=== PATIENT | female | born 1955 | race Caucasian/White ===

== ENCOUNTER 2016-12-09 09:47 | Inpatient (IN) | payer MEDICARE, MEDICAID ==
[~2016-12-09] VITALS: Ht 162.6 cm; Wt 95.3 kg
[~2016-12-09 09:47] MED LIST: ALPR0.25 PO; AMLO2.5T PO; ASPI-482 PO; ATOR20TA58 PO; BREO ELLIPTA 11 EACH IH; BUPR300T4 PO; CEFP200T PO; CITA40TA5 PO; CLIN-44 PO; ESOM40CA PO; FENO145T2 PO; FENO48TA16 PO; FLUT1DIS5 IH; GABA-586 PO; HYDR-2666 PO; HYDR-2762 PO; HYDR-971 PO; INSU100V8 SQ; IPRA3AMP23 IH; ISOS30TA4 PO; LEVO75TA5 PO; LEVO88TA4 PO; METF10002 PO; METO25TA9 PO; OMEP20CA9 PO; PRAS10TA4 PO; PRED-220 PO; PRED50TA PO; PROAIR HFA8.5 GM IH; SIMV40TA3 PO; SUCR1TAB29 PO; TIOT18CA IH; VALA500T5 PO; VALS160T3 PO; VALS1TAB3 PO; VALS1TAB6 PO; VENTOLIN HFA18 GM INH
[2016-12-09] MEDS ORDERED: methylPREDNISolone SOD SUCC PF 125 MG/2 ML VIAL. ONE (09:53)
[2016-12-09] MEDS ORDERED: methylPREDNISolone SOD SUCC PF 125 MG/2 ML VIAL. IV ONE (10:00)
[2016-12-09] MEDS ORDERED: IPRATRPIUM/ALBUTEROL 0.5/2.5MG 3 ML NEBU. NEB ONE (10:00)
--- NOTE | 2016-12-09 10:09 | PHYS DOC ---
Past Medical History Past Medical History: Anxiety, COPD, Diabetes-Type II, High Cholesterol, Hypertension, Hyperthyroid, AL Additional Past Medical Histor: EMPHYSEMA Past Surgical History: Other Additional Past Surgical Histo: left knee replacementx2, spinal fusion, right knee arthroplasty, CTR Alcohol Use: None Drug Use: None Adult General Chief Complaint Chief Complaint: SHORTNESS OF BREATH [facility] HPI Patient is a 61 year old female presents to emergency department stating that she's been short of air for the last week. She is followed up with her primary care physician was provided with some respiratory treatments. He was also supposed above assisted with getting a oxygen compressor at home. Patient states that this has not occurred at this time yet. Patient states that over the night she has increased difficulty with breathing shortness of air with wheezing. She has a history of congestive heart failure, COPD, HTN and diabetes. Patient denies fever, chills, nausea or vomiting. Cough has bee nonproductive. Review of Systems Review of Systems Constitutional: Denies fever or chills [] Eyes: Denies change in visual acuity, redness, or eye pain [] HENT: Denies nasal congestion or sore throat [] Respiratory:cough with shortness of air Cardiovascular: No additional information not addressed in HPI [] GI: Denies abdominal pain, nausea, vomiting, bloody stools or diarrhea [] : Denies dysuria or hematuria [] Musculoskeletal: Denies back pain or joint pain [] Integument: Denies rash or skin lesions [] Neurologic: Denies headache, focal weakness or sensory changes [] Current Medications Current Medications Current Medications Medications (Trade) Dose Ordered Sig/Juan Start Time Stop Time Status Last Admin Dose Admin Albuterol/ Ipratropium (Duoneb) 3 ml 1X ONCE 12/09/16 10:00 12/09/16 10:01 DC 12/09/16 10:05 3 ML Methylprednisolone Sodium Succinate (Solu-Medrol 125mg Vial) 125 mg STK-MED ONCE 12/09/16 09:53 12/09/16 09:54 DC Allergies Allergies Allergies Coded Allergies Type Severity Reaction Last Updated Verified levofloxacin Allergy Intermediate Hives 09/21/15 Yes Physical Exam Physical Exam Constitutional: Well developed, well nourished, no acute distress, non-toxic appearance. [] HENT: Normocephalic, atraumatic, bilateral external ears normal, oropharynx moist, no oral exudates, nose normal. [] Eyes: PERRLA, EOMI, conjunctiva normal, no discharge. [] Neck: Normal range of motion, no tenderness, supple, no stridor. [] Cardiovascular:Heart rate regular rhythm, no murmur [] Lungs & Thorax: Bilateral breath sounds with wheezes noted throughout Skin: Warm, dry, no erythema. Patient with scabbed over areas to bilateral lower legs and feet. Back: No tenderness Extremities: No tenderness, no cyanosis, no clubbing, ROM intact, no edema. [] Neurologic: Alert and oriented X 3, normal motor function, normal sensory function, no focal deficits noted. [] Psychologic: Affect normal, judgement normal, mood normal. [] Current Patient Data Vital Signs Vital Signs Date Time Temp Pulse Resp B/P Pulse Ox O2 Delivery O2 Flow Rate FiO2 12/09/16 10:09 96 Nasal Cannula 4.0 12/09/16 09:55 98.1 110 32 121/80 98.1 Lab Values Laboratory Tests Test 12/09/16 09:55 White Blood Count 7.9x10^3/uL (4.0-11.0) Red Blood Count 4.51x10^6/uL (3.50-5.40) Hemoglobin 13.8g/dL (12.0-15.5) Hematocrit 41.6% (36.0-47.0) Mean Corpuscular Volume 92fL (79-100) Mean Corpuscular Hemoglobin 31pg (25-35) Mean Corpuscular Hemoglobin Concent 33g/dL (31-37) Red Cell Distribution Width 13.6% (11.5-14.5) Platelet Count 319x10^3/uL (140-400) Neutrophils (%) (Auto) 74% (31-73) H Lymphocytes (%) (Auto) 16% (24-48) L Monocytes (%) (Auto) 8% (0-9) Eosinophils (%) (Auto) 1% (0-3) Basophils (%) (Auto) 1% (0-3) Neutrophils # (Auto) 5.8x10^3uL (1.8-7.7) Lymphocytes # (Auto) 1.3x10^3/uL (1.0-4.8) Monocytes # (Auto) 0.6x10^3/uL (0.0-1.1) Eosinophils # (Auto) 0.1x10^3/uL (0.0-0.7) Basophils # (Auto) 0.1x10^3/uL (0.0-0.2) Sodium Level 137mmol/L (136-145) Potassium Level 3.9mmol/L (3.5-5.1) Chloride Level 97mmol/L (98-107) L Carbon Dioxide Level 32mmol/L (21-32) Anion Gap 8 (6-14) Blood Urea Nitrogen 10mg/dL (7-20) Creatinine 1.1mg/dL (0.6-1.0) H Estimated GFR (Cockcroft-Gault) 50.3 BUN/Creatinine Ratio 9 (6-20) Glucose Level 179mg/dL (70-99) H Calcium Level 9.1mg/dL (8.5-10.1) Total Bilirubin 0.5mg/dL (0.2-1.0) Aspartate Amino Transferase (AST) 28U/L (15-37) Alanine Aminotransferase (ALT) 27U/L (14-59) Alkaline Phosphatase 74U/L (46-116) Troponin I Quantitative < 0.017ng/mL (0.000-0.055) XG-Kmu-E-Type Natriuretic Peptide 1306pg/mL (0-124) H Total Protein 8.4g/dL (6.4-8.2) H Albumin 3.8g/dL (3.4-5.0) Albumin/Globulin Ratio 0.8 (1.0-1.7) L Laboratory Tests 12/09/16 09:55 Laboratory Tests 12/09/16 09:55 EKG EKG Ekg completed at 0955 with HR 115, ST noted with axis deviation. No STEMI per Dr Little[] Radiology/Procedures Radiology/Procedures [facility] [address] [place] [address] IMAGING REPORT Signed PATIENT: ESVIN SCHROEDER ACCOUNT: [id number] : 1955 LOCATION: ER AGE: 61 SEX: F EXAM STATUS: PRE ER ORD. PHYSICIAN: AB ORTIZ NP REASON: Shortness of air, wheezing PROCEDURE: PORTABLE CHEST 1V Exam: AP portable chest. History: Shortness of air, wheezing, COPD. Comparison: 09/19/2016. Findings: The heart and mediastinal structures are within normal limits for size. Lungs are without infiltrate. No pneumothorax or pleural effusion is appreciated. Mid thoracic vertebral level again demonstrates cement. Impression: 1. No acute cardiopulmonary process. DICTATED and SIGNED BY: SUSAN HUNG MD DATE: 12/09/16 1019 CC: AB ORTIZ INSOLE TAPER; DMITRI COLMENARES MD ~ [] Course & Med Decision Making Course & Med Decision Making Pertinent Labs and Imaging studies reviewed. (See chart for details) Patient was provided with respiratory treatment in which patient states this is helped she still continues to have some wheezes throughout. She was provided with 125 mg of Solu-Medrol IV. Patient will be admitted under Dr. Waldrop. Orders have been received. Patient is a full code. [] Dragon Disclaimer Dragon Disclaimer This electronic medical record was generated, in whole or in part, using a voice recognition dictation system. Departure Departure Impression: Primary Impression: COPD exacerbation Additional Impressions: Dyspnea CHF (congestive heart failure) Disposition: ADMITTED INPATIENT Admitting Physician: Teo Waldrop Referrals: DMITRI COLMENARES MD (PCP) Problem Qualifiers AB ORTIZ NP Dec 09, 2016 10:09
--- NOTE | 2016-12-09 10:22 | RAD ---
Exam: AP portable chest. History: Shortness of air, wheezing, COPD. Comparison: 09/19/2016. Findings: The heart and mediastinal structures are within normal limits for size. Lungs are without infiltrate. No pneumothorax or pleural effusion is appreciated. Mid thoracic vertebral level again demonstrates cement. Impression: 1. No acute cardiopulmonary process.
[2016-12-09 10:23] LABS: BASO # 0.1 x10^3/uL (0.0-0.2); BASO % 1 % (0-3); EOS % 1 % (0-3); HEMATOCRIT 41.6 % (36.0-47.0); HEMOGLOBIN 13.8 g/dL (12.0-15.5); LYMPH # 1.3 x10^3/uL (1.0-4.8); LYMPH % 16 % (24-48); MEAN CORPUSCULAR HEMOGLOBIN 31 pg (25-35); MEAN CORPUSCULAR HGB CONC 33 g/dL (31-37); MEAN CORPUSCULAR VOLUME 92 fL (79-100); MONO % 8 % (0-9); NEUT % 74 % (31-73); PLATELET COUNT 319 x10^3/uL (140-400); RED BLOOD COUNT 4.51 x10^6/uL (3.50-5.40); RED CELL DISTRIBUTION WIDTH 13.6 % (11.5-14.5); WHITE BLOOD COUNT 7.9 x10^3/uL (4.0-11.0)
[2016-12-09 10:33] LABS: CALCIUM 9.1 mg/dL (8.5-10.1); CREATININE 1.1 mg/dL (0.6-1.0); GFR 50.3; POTASSIUM 3.9 mmol/L (3.5-5.1)
[2016-12-09 10:38] LABS: ALBUMIN 3.8 g/dL (3.4-5.0); ALBUMIN/GLOBULIN RATIO 0.8 (1.0-1.7); TOTAL BILIRUBIN 0.5 mg/dL (0.2-1.0); TOTAL PROTEIN 8.4 g/dL (6.4-8.2)
[2016-12-09] MEDS ORDERED: ALBUTEROL SULFATE 2.5 MG/3 ML NEBU. NEB PRN (11:00)
--- NOTE | 2016-12-09 11:41 | EKG ---
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
--- NOTE | 2016-12-09 11:54 | ACF ---
Admission Forms Criteria COPD Clinical Indications for Admission to Inpatient Care (Place 'X' for any and all applicable criteria): Admission is indicated for ANY ONE of the following (1)(2)(3): [X]I. Acute exacerbation by high-risk comorbidity (e.g., pneumonia, dysrhythmia, heart failure, pleural effusion, pneumothorax) or severe underlying COPD (e.g., steroid dependent) [ ]II. Inpatient admission required rather than observation care (see Chronic Obstructive Pulmonary Disease: Observation Care) because of ANY ONE of the following: [ ]a) New or pre-existing signs or symptoms of COPD (eg, dyspnea or Tachypnea at rest or with minimal activity) that persist despite outpatient and observation care treatment [ ]b) New-onset hypoxemia (room air SaO2 less than 90%, PO2 less than 60 mm Hg (8.0 kPa)) that persists despite outpatient and observation care treatment [ ]c) Worsening of pre-existing hypoxemia (eg, new or increased requirement for supplemental oxygen to maintain oxygenation at baseline level) that persists despite outpatient and observation care treatment, with oxygen treatment needs performable only in acute inpatient setting [ ]d) Hypercarbia (PCO2 greater than 40 mm Hg (5.3 kPa))-induced respiratory acidosis (pH less than 7.35) that persists despite outpatient and observation care treatment [ ]e) Supplemental oxygen or respiratory treatments for over 24 hours that are performable only in acute inpatient setting [ ]f) Chest tube placement with active evacuation (e.g., suction, drainage) (5) [ ]g) Other condition, treatment or monitoring requiring inpatient admission [ ]III. Planned invasive surgical or diagnostic procedures requiring acute- care hospitalization [ ]IV. Acute respiratory failure (e.g., uncompensated hypercarbia, severe hypoxemia) [ ]V. Severe comorbid condition (e.g., severe steroid myopathy, acute vertebral fracture) that has acutely worsened pulmonary function [ ]. Confusion state, lethargy, obtundation, stupor or coma Extended stay beyond goal length of stay may be needed for (31)(32): [ ]a ) Respiratory Failure. [ ]b) Severe or persisting hypoxemia or hypercarbia [ ]c) Severe or persistent dyspnea [ ]d) Comorbidities (e.g. chronic heart failure, atrial fibrillation with rapid response, pneumonia) [ ]e) Malnutrition The original [facility] content created by [facility] has been revised. The portions of the content which have been revised are identified through the use of italic text or in bold, and [facility] has neither reviewed nor approved the modified material. All other unmodified content is copyright [facility]. Please see references footnoted in the original [facility] edition 2016 Admission Criteria Met?: Yes DAVY WRIGHT Dec 09, 2016 11:54
[2016-12-09] MEDS ORDERED: IPRATRPIUM/ALBUTEROL 0.5/2.5MG 3 ML NEBU. NEB SCH (12:00)
[2016-12-09 13:32] VITALS: BP 130/89
[2016-12-09] MEDS ORDERED: NON FORMULARY ITEM (Albuterol Sulfate (Ventolin Hfa Inhaler) 2 PUFF) INH PRN (14:45)
[2016-12-09 15:00] VITALS: BP 136/77
[2016-12-09] MEDS: ATORVASTATIN CALCIUM 20 MG TABLET PO SCH (15:30)
[2016-12-09] MEDS: PREDNISONE 10 MG TABLET PO SCH (15:30)
[2016-12-09] MEDS: ISOSORBIDE MONONITRATE ER 30 MG TAB.ER.24H PO SCH (15:30)
[2016-12-09] MEDS: ASPIRIN ENTERIC COATED 81 MG TABLET.DR. PO SCH (15:30)
[2016-12-09] MEDS: LEVOTHYROXINE 88 MCG TABLET PO SCH (15:30)
[2016-12-09] MEDS: FENOFIBRATE,MICRONIZED 134 MG CAPSULE PO SCH (15:30)
[2016-12-09] MEDS: PRASUGREL 10 MG TABLET. PO SCH (15:30)
[2016-12-09] MEDS: PANTOPRAZOLE 40 MG TABLET. PO SCH (15:30)
[2016-12-09] MEDS: buPROPion XL 150 MG TAB.ER.24H PO SCH (15:30)
[2016-12-09] MEDS: METOPROLOL SUCC 24HR ER 50 MG TAB.ER.24H. PO SCH (15:30)
[2016-12-09] MEDS: AMLODIPINE BESYLATE 2.5 MG TABLET PO SCH (15:30)
[2016-12-09] MEDS: PROMETH/CODEINE 6.25/10MG 5 ML SYRUP. PO PRN (15:42)
[2016-12-09] MEDS: IPRATRPIUM/ALBUTEROL 0.5/2.5MG 3 ML NEBU. IH SCH ×2 (15:54→19:52)
[2016-12-09] MEDS ORDERED: METFORMIN 1,000 MG TABLET PO SCH (17:00)
[2016-12-09] MEDS: SUCRALFATE 1 GM TABLET. PO SCH ×2 (17:01→20:15)
[2016-12-09 18:55] VITALS: BP 125/78
[2016-12-09] MEDS: CITALOPRAM 20 MG TABLET. PO SCH (20:14)
[2016-12-09] MEDS: valACYclovir 500 MG TABLET. PO SCH (20:15)
[2016-12-09] MEDS: CEFPODOXIME PROXETIL 200 MG TABLET PO SCH (20:15)
[2016-12-09] MEDS ORDERED: DEXTROSE 50% 25 GM / 50ML DISP.SYRIN. IV PRN (21:15)
[2016-12-09] MEDS: INSULIN DETEMIR 300 UNITS/3 ML INSULN.PEN. SQ SCH (21:28)
[2016-12-09] MEDS ORDERED: INSULIN ASPART 300 UNITS/3 ML INSULN.PEN SQ ONE (21:30)
[2016-12-09 22:30] VITALS: BP 124/66
[2016-12-10 02:50] VITALS: BP 133/76
[2016-12-10] MEDS: LEVOTHYROXINE 88 MCG TABLET PO SCH (05:58)
[2016-12-10 06:24] LABS: BASO % 0 % (0-3); EOS % 0 % (0-3); HEMATOCRIT 37.9 % (36.0-47.0); HEMOGLOBIN 12.3 g/dL (12.0-15.5); LYMPH # 1.1 x10^3/uL (1.0-4.8); LYMPH % 12 % (24-48); MEAN CORPUSCULAR HEMOGLOBIN 30 pg (25-35); MEAN CORPUSCULAR HGB CONC 32 g/dL (31-37); MEAN CORPUSCULAR VOLUME 92 fL (79-100); MONO % 8 % (0-9); NEUT % 81 % (31-73); PLATELET COUNT 304 x10^3/uL (140-400); RED BLOOD COUNT 4.12 x10^6/uL (3.50-5.40); RED CELL DISTRIBUTION WIDTH 13.6 % (11.5-14.5); WHITE BLOOD COUNT 9.2 x10^3/uL (4.0-11.0)
[2016-12-10 06:35] LABS: CALCIUM 9.1 mg/dL (8.5-10.1); CREATININE 1.4 mg/dL (0.6-1.0); GFR 38.1; POTASSIUM 4.5 mmol/L (3.5-5.1)
[2016-12-10 07:55] VITALS: BP 142/89
[2016-12-10] MEDS: IPRATRPIUM/ALBUTEROL 0.5/2.5MG 3 ML NEBU. IH SCH ×4 (08:02→19:24)
[2016-12-10] MEDS: ASPIRIN ENTERIC COATED 81 MG TABLET.DR. PO SCH (08:22)
[2016-12-10] MEDS: CEFPODOXIME PROXETIL 200 MG TABLET PO SCH ×2 (08:22→21:00)
[2016-12-10] MEDS: SUCRALFATE 1 GM TABLET. PO SCH ×4 (08:22→21:00)
[2016-12-10] MEDS: PANTOPRAZOLE 40 MG TABLET. PO SCH (08:22)
[2016-12-10] MEDS: PRASUGREL 10 MG TABLET. PO SCH (08:24)
[2016-12-10] MEDS: ATORVASTATIN CALCIUM 20 MG TABLET PO SCH (08:24)
[2016-12-10] MEDS: FENOFIBRATE,MICRONIZED 134 MG CAPSULE PO SCH (08:24)
[2016-12-10] MEDS: PREDNISONE 10 MG TABLET PO SCH (08:25)
[2016-12-10] MEDS: buPROPion XL 150 MG TAB.ER.24H PO SCH (08:25)
[2016-12-10] MEDS: INSULIN ASPART 300 UNITS/3 ML INSULN.PEN SQ SCH ×6 (08:33→17:53)
[2016-12-10] MEDS ORDERED: NON FORMULARY ITEM (Fluticasone/Vilanterol (Breo Ellipta 100-25 Mcg Inh) 1 PUFF) IH SCH (09:00)
[2016-12-10 10:05] VITALS: BP 143/78
--- NOTE | 2016-12-10 12:44 | PDOC ---
PROGRESS NOTES Subjective Subjective Pt awake and pleasant in conversation. C/o SOB with exertion. States her s/s began 1 week ago and have gradually worsened. Pt also with c/o dry cough and ST. Pt states she has been eating and drinking well with normal output. Objective Objective Pt awake and alert. NAD. VSS. Afebrile. Lungs sounds diminished with expirtory wheeze throughout. Resp even, labored with conversation. Pt on 2L of O2 to maintain greater than 90%. Heart with RRR. No murmurs. No pedal edema. Vital Signs Date Time Temp Pulse Resp B/P Pulse Ox O2 Delivery O2 Flow Rate FiO2 12/10/16 12:00 Nasal Cannula 2.0 12/10/16 08:02 97 12/10/16 07:55 97.5 93 20 142/89 97.5 Intake and Output 12/10/16 07:00 Intake Total 606 ml Output Total 400 ml Balance 206 ml Intake Oral 606 ml Output Urine Total 400 ml # Voids 1 Assessment Assessment Problems Medical Problems: (1) CHF (congestive heart failure) Status: Acute (2) COPD exacerbation Status: Acute (3) Dyspnea Status: Acute Plan Plan of Care 1. COPD exaccerbation -Pt on O2 hs and nebulizer txs qid at home -Presented to the ER on 12/09 with SOB, cough, and ST -WBC WNL -CXR: No acute cardiopulmonary process. -Methylprednisone 40mg IV q8h -Duoneb qid -O2 to maintain sats >90% -Pulmonology consulted 2. Diabetes, insulin dependent -Resume home medications -FSBS 364 upon admission, 166 this am Comment Review of Relevant I have reviewed the following items haroldo (where applicable) has been applied. Labs Laboratory Tests Test 12/09/16 09:55 12/09/16 16:42 12/09/16 16:50 12/09/16 20:26 White Blood Count 7.9x10^3/uL (4.0-11.0) Red Blood Count 4.51x10^6/uL (3.50-5.40) Hemoglobin 13.8g/dL (12.0-15.5) Hematocrit 41.6% (36.0-47.0) Mean Corpuscular Volume 92fL (79-100) Mean Corpuscular Hemoglobin 31pg (25-35) Mean Corpuscular Hemoglobin Concent 33g/dL (31-37) Red Cell Distribution Width 13.6% (11.5-14.5) Platelet Count 319x10^3/uL (140-400) Neutrophils (%) (Auto) 74% (31-73) Lymphocytes (%) (Auto) 16% (24-48) Monocytes (%) (Auto) 8% (0-9) Eosinophils (%) (Auto) 1% (0-3) Basophils (%) (Auto) 1% (0-3) Neutrophils # (Auto) 5.8x10^3uL (1.8-7.7) Lymphocytes # (Auto) 1.3x10^3/uL (1.0-4.8) Monocytes # (Auto) 0.6x10^3/uL (0.0-1.1) Eosinophils # (Auto) 0.1x10^3/uL (0.0-0.7) Basophils # (Auto) 0.1x10^3/uL (0.0-0.2) Sodium Level 137mmol/L (136-145) Potassium Level 3.9mmol/L (3.5-5.1) Chloride Level 97mmol/L (98-107) Carbon Dioxide Level 32mmol/L (21-32) Anion Gap 8 (6-14) Blood Urea Nitrogen 10mg/dL (7-20) Creatinine 1.1mg/dL (0.6-1.0) Estimated GFR (Cockcroft-Gault) 50.3 BUN/Creatinine Ratio 9 (6-20) Glucose Level 179mg/dL (70-99) Calcium Level 9.1mg/dL (8.5-10.1) Total Bilirubin 0.5mg/dL (0.2-1.0) Aspartate Amino Transf (AST/SGOT) 28U/L (15-37) Alanine Aminotransferase (ALT/SGPT) 27U/L (14-59) Alkaline Phosphatase 74U/L (46-116) Troponin I Quantitative < 0.017ng/mL (0.000-0.055) < 0.017ng/mL (0.000-0.055) LQ-Btg-R-Type Natriuretic Peptide 1306pg/mL (0-124) Total Protein 8.4g/dL (6.4-8.2) Albumin 3.8g/dL (3.4-5.0) Albumin/Globulin Ratio 0.8 (1.0-1.7) Glucose (Fingerstick) 371mg/dL (70-99) 364mg/dL (70-99) Test 12/09/16 22:10 12/10/16 06:05 12/10/16 08:03 12/10/16 11:35 Troponin I Quantitative < 0.017ng/mL (0.000-0.055) White Blood Count 9.2x10^3/uL (4.0-11.0) Red Blood Count 4.12x10^6/uL (3.50-5.40) Hemoglobin 12.3g/dL (12.0-15.5) Hematocrit 37.9% (36.0-47.0) Mean Corpuscular Volume 92fL (79-100) Mean Corpuscular Hemoglobin 30pg (25-35) Mean Corpuscular Hemoglobin Concent 32g/dL (31-37) Red Cell Distribution Width 13.6% (11.5-14.5) Platelet Count 304x10^3/uL (140-400) Neutrophils (%) (Auto) 81% (31-73) Lymphocytes (%) (Auto) 12% (24-48) Monocytes (%) (Auto) 8% (0-9) Eosinophils (%) (Auto) 0% (0-3) Basophils (%) (Auto) 0% (0-3) Neutrophils # (Auto) 7.4x10^3uL (1.8-7.7) Lymphocytes # (Auto) 1.1x10^3/uL (1.0-4.8) Monocytes # (Auto) 0.7x10^3/uL (0.0-1.1) Eosinophils # (Auto) 0.0x10^3/uL (0.0-0.7) Basophils # (Auto) 0.0x10^3/uL (0.0-0.2) Sodium Level 139mmol/L (136-145) Potassium Level 4.5mmol/L (3.5-5.1) Chloride Level 100mmol/L (98-107) Carbon Dioxide Level 33mmol/L (21-32) Anion Gap 6 (6-14) Blood Urea Nitrogen 32mg/dL (7-20) Creatinine 1.4mg/dL (0.6-1.0) Estimated GFR (Cockcroft-Gault) 38.1 Glucose Level 215mg/dL (70-99) Calcium Level 9.1mg/dL (8.5-10.1) Glucose (Fingerstick) 171mg/dL (70-99) 166mg/dL (70-99) Laboratory Tests Test 12/09/16 16:42 12/09/16 16:50 12/09/16 20:26 12/09/16 22:10 Glucose (Fingerstick) 371mg/dL (70-99) 364mg/dL (70-99) Troponin I Quantitative < 0.017ng/mL (0.000-0.055) < 0.017ng/mL (0.000-0.055) Test 12/10/16 06:05 12/10/16 08:03 12/10/16 11:35 White Blood Count 9.2x10^3/uL (4.0-11.0) Red Blood Count 4.12x10^6/uL (3.50-5.40) Hemoglobin 12.3g/dL (12.0-15.5) Hematocrit 37.9% (36.0-47.0) Mean Corpuscular Volume 92fL (79-100) Mean Corpuscular Hemoglobin 30pg (25-35) Mean Corpuscular Hemoglobin Concent 32g/dL (31-37) Red Cell Distribution Width 13.6% (11.5-14.5) Platelet Count 304x10^3/uL (140-400) Neutrophils (%) (Auto) 81% (31-73) Lymphocytes (%) (Auto) 12% (24-48) Monocytes (%) (Auto) 8% (0-9) Eosinophils (%) (Auto) 0% (0-3) Basophils (%) (Auto) 0% (0-3) Neutrophils # (Auto) 7.4x10^3uL (1.8-7.7) Lymphocytes # (Auto) 1.1x10^3/uL (1.0-4.8) Monocytes # (Auto) 0.7x10^3/uL (0.0-1.1) Eosinophils # (Auto) 0.0x10^3/uL (0.0-0.7) Basophils # (Auto) 0.0x10^3/uL (0.0-0.2) Sodium Level 139mmol/L (136-145) Potassium Level 4.5mmol/L (3.5-5.1) Chloride Level 100mmol/L (98-107) Carbon Dioxide Level 33mmol/L (21-32) Anion Gap 6 (6-14) Blood Urea Nitrogen 32mg/dL (7-20) Creatinine 1.4mg/dL (0.6-1.0) Estimated GFR (Cockcroft-Gault) 38.1 Glucose Level 215mg/dL (70-99) Calcium Level 9.1mg/dL (8.5-10.1) Glucose (Fingerstick) 171mg/dL (70-99) 166mg/dL (70-99) Microbiology 12/09/16 Blood Culture - Preliminary, Resulted NO GROWTH AFTER 1 DAY Medications Current Medications Albuterol/ Ipratropium (Duoneb) 3 ml 1X ONCE NEB Last administered on t 10:05; Start 12/09/16 at 10:00; Stop 12/09/16 at 10:01; Status DC Methylprednisolone Sodium Succinate (Solu-Medrol 125mg Vial) 125 mg 1X ONCE IV Last administered on 12/09/16t 09:57; Start 12/09/16 at 10:00; Stop 12/09/16 at 10:01; Status DC Methylprednisolone Sodium Succinate (Solu-Medrol 125mg Vial) 125 mg STK-MED ONCE .ROUTE ; Start 12/09/16 at 09:53; Stop 12/09/16 at 09:54; Status DC Albuterol/ Ipratropium (Duoneb) 3 ml Q6HRS NEB ; Start 12/09/16 at 12:00; Stop 12/09/16 at 14:43; Status DC Albuterol Sulfate (Ventolin Neb Soln) 2.5 mg PRN Q4HRS PRN NEB SOA; Start 12/09 at 11:00 Alprazolam (Xanax) 0.25 mg PRN TID PRN PO ANXIETY / AGITATION; Start 12/09/16 at 14:45 Amlodipine Besylate (Norvasc) 2.5 mg DAILY PO ; Start 12/09/16 at 15:30 Aspirin (Ecotrin) 81 mg DAILY PO Last administered on 12/10/16 08:22; Start at 15:30 Atorvastatin Calcium (Lipitor) 20 mg DAILY PO Last administered on 12/10/16 08 :24; Start 12/09/16 at 15:30 Cefpodoxime Proxetil (Vantin) 200 mg BID PO Last administered on 12/10/16 08: 22; Start 12/09/16 at 21:00 Acetaminophen/ Hydrocodone Bitart (Lortab 5/325) 1 tab PRN Q8HRS PRN PO PAIN; Start 12/09/16 at 14:45 Albuterol/ Ipratropium (Duoneb) 3 ml RTQID IH Last administered on 12/10/16 12 :00; Start 12/09/16 at 16:00 Isosorbide Mononitrate (Imdur) 30 mg DAILY PO ; Start 12/09/16 at 15:30 Levothyroxine Sodium (Synthroid) 88 mcg DAILY06 PO Last administered on 05:58; Start 12/09/16 at 15:30 Metformin HCl (Glucophage) 1,000 mg BIDWMEALS PO Last administered on 17:01; Start 12/09/16 at 17:00; Stop 12/09/16 at 21:09; Status DC Metoprolol Succinate (Toprol Xl) 50 mg DAILY PO ; Start 12/09/16 at 15:30 Prasugrel (Effient) 10 mg DAILYWBKFT PO Last administered on 12/10/16 08:24; Start 12/09/16 at 15:30 Prednisone (Prednisone) 10 mg DAILY PO Last administered on 12/10/16 08:25; Start 12/09/16 at 15:30 Sucralfate (Carafate) 1 gm QIDACHS PO Last administered on 12/10/16 08:22; Start 12/09/16 at 16:30 Valacyclovir HCl (Valtrex) 500 mg BID PO Last administered on 12/09/16 20:15; Start 12/09/16 at 21:00 Non-Formulary Medication 2 puff PRN QID PRN INH SHORTNESS OF BREATH; Start at 14:45; Status UNV Bupropion HCl (Wellbutrin Xl) 300 mg DAILY PO Last administered on 12/10/16 08 :25; Start 12/09/16 at 15:30 Citalopram Hydrobromide (Celexa) 40 mg QHS PO Last administered on 12/09/16 20 :14; Start 12/09/16 at 21:00 Pantoprazole Sodium (Protonix) 40 mg DAILYAC PO Last administered on 12/10/16 08:22; Start 12/09/16 at 15:30 Fenofibrate (Lofibra) 134 mg DAILY PO Last administered on 12/10/16 08:24; Start 12/09/16 at 15:30 Non-Formulary Medication 1 puff DAILY IH ; Start 12/10/16 at 09:00; Status UNV Insulin Detemir (Levemir) 35 units QHS SQ Last administered on 12/09/16 21:28 ; Start 12/09/16 at 21:00 Promethazine HCl/ Codeine (Phenergan With Codeine) 5 ml PRN Q8HRS PRN PO COUGH Last administered on 12/09/16 15:42; Start 12/09/16 at 14:45 Insulin Aspart (Novolog) 0-9 UNITS TIDWMEALS SQ Last administered on 12/10/16 08:33; Start 12/10/16 at 08:00 Dextrose 12.5 gm PRN Q15MIN PRN IV SEE COMMENTS; Start 12/09/16 at 21:15 Insulin Aspart (Novolog) 10 units TIDWMEALS SQ Last administered on 12/10/16 08:34; Start 12/10/16 at 08:00 Insulin Aspart (Novolog) 6 units 1X ONCE SQ Last administered on 12/09/16 21: 28; Start 12/09/16 at 21:30; Stop 12/09/16 at 21:31; Status DC Active Scripts Active Carafate (Sucralfate) 1 Gm Tablet 1 Gm PO QIDACHS 30 Days Effient (Prasugrel Hcl) 10 Mg Tablet 10 Mg PO DAILYWBKFT Reported Prednisone 10 Mg Tablet 10 Mg PO DAILY Cefpodoxime Proxetil 200 Mg Tablet 1 Tab PO BID Amlodipine Besylate 2.5 Mg Tablet 2.5 Mg PO DAILY Atorvastatin Calcium 20 Mg Tablet 20 Mg PO DAILY Isosorbide Mononitrate Er (Isosorbide Mononitrate) 30 Mg Tab.er.24h 30 Mg PO DAILY Levothyroxine Sodium 88 Mcg Tablet 88 Mcg PO DAILY06 Ventolin Hfa Inhaler (Albuterol Sulfate) 18 Gm Hfa.aer.ad 2 Puff INH PRN QID PRN Bupropion Xl (Bupropion Hcl) 300 Mg Tab.er.24h 300 Mg PO DAILY Breo Ellipta 100-25 Mcg Inh (Fluticasone/Vilanterol) 1 Each Aer.pow.ba 1 Puff IH DAILY Hydrocodone-Apap 5-325 (Hydrocodone Bit/Acetaminophen) 1 Each Tablet 1 Tab PO PRN Q8HRS PRN Nexium Capsule (Esomeprazole Magnesium) 40 Mg Capsule.dr 1 Cap PO DAILY Metoprolol Succinate ( Xl ) (Metoprolol Succinate) 25 Mg Tab.er.24h 2 Tab PO DAILY Aspir 81 (Aspirin) 81 Mg Tablet.dr 1 Tab PO DAILY Xanax (Alprazolam) 0.25 Mg Tablet 0.25 Mg PO PRN TID PRN Valtrex (Valacyclovir Hcl) 500 Mg Tablet 500 Mg PO BID Fenofibrate (Fenofibrate Nanocrystallized) 145 Mg Tablet 160 Mg PO DAILY Citalopram Hbr (Citalopram Hydrobromide) 40 Mg Tablet 40 Mg PO HS Lantus (Insulin Glargine,Hum.rec.anlog) 100 Unit/1 Ml Vial 35 Unit SQ HS Metformin Hcl 1,000 Mg Tablet 1,000 Mg PO BID Duoneb 0.5 Mg-3 Mg/3 Ml Soln (Ipratropium/Albuterol Sulfate) 3 Ml Ampul.neb 3 Ml IH QID Vitals/I & O Vital Sign - Last 24 Hours 12/09/16 12/09/16 12/09/16 12/09/16 13:32 13:32 14:12 15:00 Temp 98.5 98.5 98.6 98.5 98.5 98.6 Pulse 109 109 102 Resp 18 18 18 B/P 130/89 130/89 136/77 Pulse Ox 97 94 97 O2 Delivery Nasal Cannula Nasal Cannula O2 Flow Rate 4.0 4.0 12/09/16 12/09/16 12/09/16 12/09/16 15:54 18:55 19:53 20:00 Temp 98.7 98.7 Pulse 97 Resp 20 B/P 125/78 Pulse Ox 97 98 98 O2 Delivery Nasal Cannula Nasal Cannula Nasal Cannula O2 Flow Rate 4.0 2.0 4.0 4.0 12/09/16 12/10/16 12/10/16 12/10/16 22:30 02:50 07:55 08:02 Temp 98.3 97.6 97.5 98.3 97.6 97.5 Pulse 96 91 93 Resp 20 20 20 B/P 124/66 133/76 142/89 Pulse Ox 97 96 97 97 O2 Delivery Nasal Cannula Nasal Cannula O2 Flow Rate 2.0 2.0 4.0 4.0 12/10/16 12:00 O2 Delivery Nasal Cannula O2 Flow Rate 2.0 Intake and Output 12/09/16 12/09/16 12/10/16 15:00 23:00 07:00 Intake Total 486 ml 120 ml Output Total 400 ml Balance 86 ml 120 ml ANASTASIIA VU MD Dec 10, 2016 12:43
[2016-12-10] MEDS: BENZOCAINE/MENTHOL LOZENGE. PO PRN ×2 (12:50→17:48)
[2016-12-10] MEDS: valACYclovir 500 MG TABLET. PO SCH ×2 (12:52→21:00)
[2016-12-10] MEDS: PROMETH/CODEINE 6.25/10MG 5 ML SYRUP. PO PRN (12:52)
[2016-12-10] MEDS: METOPROLOL SUCC 24HR ER 50 MG TAB.ER.24H. PO SCH (12:54)
[2016-12-10] MEDS: ISOSORBIDE MONONITRATE ER 30 MG TAB.ER.24H PO SCH (12:55)
[2016-12-10] MEDS: AMLODIPINE BESYLATE 2.5 MG TABLET PO SCH (12:56)
[2016-12-10] MEDS: methylPREDNISolone SOD SUCC PF 40 MG/ML VIAL. IV SCH ×2 (12:56→22:00)
--- NOTE | 2016-12-10 13:30 | PDOC ---
Provider Note Provider Note dictated PIPER BARCENAS MD Dec 10, 2016 13:30
[2016-12-10 14:50] VITALS: BP 158/75
--- NOTE | 2016-12-10 15:16 | HP ---
ADMIT DATE: 12/09/2016 CHIEF COMPLAINT AND HISTORY OF PRESENT ILLNESS: This is a 61-year-old female who presented to the Emergency Room with complaints of increased shortness of breath, fatigue, cough and a sore throat. The patient stated that her signs and symptoms progressively worsened over 24 hours prior to presenting to the Emergency Room. Upon examination in the Emergency Room, the patient was given dose of DuoNeb x 1 as well as 125 mg of methylprednisolone IV. The patient's respirations were labored. Her lungs sounds were documented as bilateral breath sounds with wheezes noted throughout. A chest x-ray was obtained, which revealed no acute cardiopulmonary process. Laboratory findings revealed a normal WBC. The patient's vital signs were stable on supplementary oxygen per nasal cannula at 4 liters. The patient was satting 96%. The patient was admitted through the Emergency Room due to her COPD exacerbation. PAST MEDICAL HISTORY: The patient has a significant past medical history for anxiety, COPD, type 2 diabetes, hyperlipidemia, hypertension, peripheral neuropathy, diastolic congestive heart failure, venous thrombosis and pulmonary emboli as well as pneumonia. The patient also has sleep apnea, previous history of cholecystectomy, irritable bowel disease with alternating constipation and diarrhea as well as gastroesophageal reflux disease. She also has a history of genital herpes, hysterectomy, recurrent UTIs, carpal tunnel release surgery bilaterally, history of left knee replacement, hypothyroidism following a history of hyperthyroidism. The patient also has a history of spinal fusion and right knee arthroplasty. MEDICATIONS: Medications were brought with the patient, listed on the computer and have been addressed. ALLERGIES: The patient is allergic levofloxacin. FAMILY HISTORY: Positive for cancer and hypertension. SOCIAL HISTORY: The patient states that she quit smoking in 2002. Prior to this, she had a 40-year history of tobaccoism. The patient states that she drinks alcohol only socially and on occasion. She denies illicit drug use. REVIEW OF SYSTEMS: As mentioned above. PHYSICAL EXAMINATION: GENERAL: She is a well-developed, well-nourished, obese white female who does appear short of breath with conversation. VITAL SIGNS: Stable. She is afebrile. The patient's oxygen saturation is 96% on 4 liters of O2 per nasal cannula. NECK: Supple, without adenopathy or thyromegaly. CHEST: Lung sounds diminished with bilateral expiratory wheezing present. HEART: Regular rate and rhythm without S3, S4 or murmur. ABDOMEN: Soft, nontender, nondistended, without hepatosplenomegaly or mass. EXTREMITIES: Without cyanosis, clubbing or edema. NEUROLOGIC: Grossly intact. IMPRESSION: Chronic obstructive pulmonary disease exacerbation. PLAN: The patient has been admitted. DuoNebs will be administered q.i.d. Methylprednisolone will be initiated at 40 mg IV q. 8 hours. Pulmonology will be consulted for their input in the patient's care. Oxygen saturation will be maintained above 90% on supplemental O2 p.r.n. The patient will be monitored, managed and treated appropriately during her hospitalization. ANASTASIIA VU MD DR: HERO/paul JOB#: [id number] / [id number] AURA Malhotra MD
[2016-12-10] MEDS: HYDROCODONE/APAP 5/325MG TABLET. PO PRN (15:57)
[2016-12-10 17:54] LABS: OBC FLU VALID
[2016-12-10 19:00] VITALS: BP 156/81
[2016-12-10] MEDS: INSULIN DETEMIR 300 UNITS/3 ML INSULN.PEN. SQ SCH (21:00)
[2016-12-10] MEDS: CITALOPRAM 20 MG TABLET. PO SCH (21:00)
[2016-12-10 23:00] VITALS: BP 129/63
--- NOTE | 2016-12-11 01:04 | CONS ---
DATE OF CONSULTATION: ATTENDING PHYSICIAN: Dr. Teo Waldrop. REASON FOR CONSULTATION: Dyspnea. HISTORY OF PRESENT ILLNESS: The patient is a 61-year-old female who has history of chronic obstructive airway disease and is on home oxygen. She was brought into the hospital with complaint of shortness of breath. She also had been wheezing. She has a nonproductive cough. Her chest x-ray was reviewed and it did not show any definite consolidation. The patient has history of pulmonary embolism in 2011. She said she was treated for a short period of time with anticoagulation, but she developed GI bleed and anticoagulation was withheld. She had 2 CT chest in the past 1 year, last one was in 05/2016 and there was no evidence of any pulmonary embolism. Consultation is requested for further evaluation and management. PAST MEDICAL HISTORY: History of COPD, smoked for about 40 years before quitting in 2002; history of anxiety, type 2 diabetes, dyslipidemia, hypertension, hyperthyroidism, and [place]. PAST SURGICAL HISTORY: Including left knee replacement, spinal fusion, right knee arthroplasty. ALLERGIES: LEVAQUIN. MEDICATIONS: All reviewed as listed in the MRAD including IV steroids. She is on oral ____ and DuoNeb. REVIEW OF SYSTEMS: Twelve-point system is obtained. Pertinent positives discussed in my history of present illness; otherwise, noncontributory. All systems that were negative were reviewed as well. SOCIAL HISTORY: Smoked for 40 years before quitting in 2002. FAMILY HISTORY: Noncontributory to lungs. PHYSICAL EXAMINATION: VITAL SIGNS: Stable, afebrile, pulse ox 97% on 2 liters. HEENT: Sclerae nonicteric. NECK: Supple. LUNGS: Few posterior wheezes. CARDIOVASCULAR: Regular ____. ABDOMEN: Soft, nontender. EXTREMITIES: With no pitting edema. LABORATORY DATA: Reviewed. White cell count 9.2, hemoglobin 12.3 and platelets are 304. BUN is 32 and a creatinine of 1.4. IMPRESSION: 1. Acute exacerbation of chronic obstructive pulmonary disease with faint bronchospasm. 2. Acute viral syndrome. Will rule out influenza. 3. No definite consolidation seen on the chest x-ray. 4. History of pulmonary embolism in 2011, which was treated short-term with anticoagulation as she developed gastrointestinal bleed at that time. Last 2 CAT scans have shown no evidence of any recurrent pulmonary embolism. RECOMMENDATIONS: 1. Continue with present oxygen, keep saturation 92%-94%. 2. IV Solu-Medrol was initiated. We will gradually taper. 3. ?emperic antibiotics 4. DuoNeb to continue. 5. May have to consider holding metoprolol if bronchospasm does not completely resolve. 6. Influenza screen. 7. Discussed with the patient's daughter at the bedside. We will follow along with you. PIPER BARCENAS MD DR: MARIANA/paul JOB#: [id number] / [id number] RADHA
[2016-12-11 03:00] VITALS: BP 115/78
[2016-12-11] MEDS: LEVOTHYROXINE 88 MCG TABLET PO SCH (06:22)
[2016-12-11] MEDS: methylPREDNISolone SOD SUCC PF 40 MG/ML VIAL. IV SCH ×3 (06:23→20:53)
[2016-12-11 07:00] VITALS: BP 111/75
[2016-12-11] MEDS: IPRATRPIUM/ALBUTEROL 0.5/2.5MG 3 ML NEBU. IH SCH ×4 (07:35→19:44)
[2016-12-11] MEDS: valACYclovir 500 MG TABLET. PO SCH ×2 (08:16→20:52)
[2016-12-11] MEDS: PANTOPRAZOLE 40 MG TABLET. PO SCH (08:16)
[2016-12-11] MEDS: PROMETH/CODEINE 6.25/10MG 5 ML SYRUP. PO PRN ×2 (08:16→21:06)
[2016-12-11] MEDS: ISOSORBIDE MONONITRATE ER 30 MG TAB.ER.24H PO SCH (08:17)
[2016-12-11] MEDS: FENOFIBRATE,MICRONIZED 134 MG CAPSULE PO SCH (08:17)
[2016-12-11] MEDS: PRASUGREL 10 MG TABLET. PO SCH (08:17)
[2016-12-11] MEDS: ASPIRIN ENTERIC COATED 81 MG TABLET.DR. PO SCH (08:17)
[2016-12-11] MEDS: buPROPion XL 150 MG TAB.ER.24H PO SCH (08:17)
[2016-12-11] MEDS: BENZOCAINE/MENTHOL LOZENGE. PO PRN ×2 (08:18→23:52)
[2016-12-11] MEDS: SUCRALFATE 1 GM TABLET. PO SCH ×4 (08:18→20:52)
[2016-12-11] MEDS: CEFPODOXIME PROXETIL 200 MG TABLET PO SCH ×2 (08:18→20:52)
[2016-12-11] MEDS: ATORVASTATIN CALCIUM 20 MG TABLET PO SCH (08:18)
[2016-12-11] MEDS: AMLODIPINE BESYLATE 2.5 MG TABLET PO SCH (08:18)
[2016-12-11] MEDS: METOPROLOL SUCC 24HR ER 50 MG TAB.ER.24H. PO SCH (08:19)
[2016-12-11] MEDS: INSULIN ASPART 300 UNITS/3 ML INSULN.PEN SQ SCH ×6 (08:26→17:00)
--- NOTE | 2016-12-11 09:14 | PDOC ---
SUBJECTIVE Subjective feels better , requires oxygen OBJECTIVE Objective VSS Vital Signs Vital Signs Date Time Temp Pulse Resp B/P Pulse Ox O2 Delivery O2 Flow Rate FiO2 12/11/16 08:19 88 111/75 12/11/16 08:18 88 111/75 12/11/16 08:17 88 111/75 12/11/16 08:15 Nasal Cannula 3.0 12/11/16 07:38 96 Nasal Cannula 3.0 12/11/16 07:00 97.7 88 18 111/75 89 Room Air 97.7 12/11/16 03:00 96.6 75 18 115/78 97 Nasal Cannula 2.0 96.6 12/10/16 23:00 97.7 53 18 129/63 97 Nasal Cannula 2.0 97.7 12/10/16 20:00 Nasal Cannula 3.0 12/10/16 19:24 93 Nasal Cannula 3.0 12/10/16 19:00 98.6 93 20 156/81 97 Nasal Cannula 2.0 98.6 12/10/16 16:57 20 94 Nasal Cannula 3.0 12/10/16 16:03 Nasal Cannula 2.0 12/10/16 15:57 20 94 Nasal Cannula 2.0 12/10/16 14:50 97.9 98 20 158/75 93 Nasal Cannula 2.0 97.9 12/10/16 12:56 89 143/78 12/10/16 12:55 89 143/78 12/10/16 12:54 89 143/78 12/10/16 12:00 Nasal Cannula 2.0 12/10/16 10:05 98.1 89 20 143/78 94 Nasal Cannula 2.0 98.1 I & O Intake and Output 12/11/16 07:00 Intake Total 1860 ml Balance 1860 ml Intake Oral 1860 ml # Voids 3 PHYSICAL EXAM Physical Exam lungs with less wheezing still poor air flow heart RRR abd soft ext no edema ASSESSMENT/PLAN Assessment/Plan 1. COPD exaccerbation -Pt on O2 hs and nebulizer txs qid at home need portable oxygen -Presented to the ER on 12/09 with SOB, cough, and ST -WBC WNL -CXR: No acute cardiopulmonary process. -Methylprednisone 40mg IV q8h -Duoneb qid -O2 to maintain sats >90% -Pulmonology following 2. Diabetes, insulin dependent -increase bed time insulin, continue plans Problems: COMMENT Lab Laboratory Tests Test 12/10/16 11:35 12/10/16 16:34 12/10/16 16:50 12/10/16 20:45 Glucose (Fingerstick) 166mg/dL (70-99) 233mg/dL (70-99) 217mg/dL (70-99) Influenza Type A Antigen Negative (NEGATIVE) Influenza Type B Antigen Negative (NEGATIVE) Test 12/11/16 07:48 Glucose (Fingerstick) 225mg/dL (70-99) AURA TEJEDA MD Dec 11, 2016 09:14
[2016-12-11 11:00] VITALS: BP 142/70
[2016-12-11] MEDS: HYDROCODONE/APAP 5/325MG TABLET. PO PRN ×2 (12:02→20:59)
--- NOTE | 2016-12-11 13:41 | PDOC ---
PULMONARY PROGRESS NOTES Subjective still with cough Vitals Vital Signs Date Time Temp Pulse Resp B/P Pulse Ox O2 Delivery O2 Flow Rate FiO2 12/11/16 12:02 Nasal Cannula 3.0 12/11/16 11:00 98.4 93 19 142/70 92 98.4 General: Alert, Oriented X4, No acute distress HEENT: Other Lungs: Clear Cardiovascular: S1, S2 Abdomen: Soft, Non-tender Extremities: No Edema Labs Laboratory Tests Test 12/09/16 16:42 12/09/16 16:50 12/09/16 20:26 12/09/16 22:10 Glucose (Fingerstick) 371mg/dL (70-99) 364mg/dL (70-99) Troponin I Quantitative < 0.017ng/mL (0.000-0.055) < 0.017ng/mL (0.000-0.055) Test 12/10/16 06:05 12/10/16 08:03 12/10/16 11:35 12/10/16 16:34 White Blood Count 9.2x10^3/uL (4.0-11.0) Red Blood Count 4.12x10^6/uL (3.50-5.40) Hemoglobin 12.3g/dL (12.0-15.5) Hematocrit 37.9% (36.0-47.0) Mean Corpuscular Volume 92fL (79-100) Mean Corpuscular Hemoglobin 30pg (25-35) Mean Corpuscular Hemoglobin Concent 32g/dL (31-37) Red Cell Distribution Width 13.6% (11.5-14.5) Platelet Count 304x10^3/uL (140-400) Neutrophils (%) (Auto) 81% (31-73) Lymphocytes (%) (Auto) 12% (24-48) Monocytes (%) (Auto) 8% (0-9) Eosinophils (%) (Auto) 0% (0-3) Basophils (%) (Auto) 0% (0-3) Neutrophils # (Auto) 7.4x10^3uL (1.8-7.7) Lymphocytes # (Auto) 1.1x10^3/uL (1.0-4.8) Monocytes # (Auto) 0.7x10^3/uL (0.0-1.1) Eosinophils # (Auto) 0.0x10^3/uL (0.0-0.7) Basophils # (Auto) 0.0x10^3/uL (0.0-0.2) Sodium Level 139mmol/L (136-145) Potassium Level 4.5mmol/L (3.5-5.1) Chloride Level 100mmol/L (98-107) Carbon Dioxide Level 33mmol/L (21-32) Anion Gap 6 (6-14) Blood Urea Nitrogen 32mg/dL (7-20) Creatinine 1.4mg/dL (0.6-1.0) Estimated GFR (Cockcroft-Gault) 38.1 Glucose Level 215mg/dL (70-99) Calcium Level 9.1mg/dL (8.5-10.1) Glucose (Fingerstick) 171mg/dL (70-99) 166mg/dL (70-99) 233mg/dL (70-99) Test 12/10/16 16:50 12/10/16 20:45 12/11/16 07:48 Influenza Type A Antigen Negative (NEGATIVE) Influenza Type B Antigen Negative (NEGATIVE) Glucose (Fingerstick) 217mg/dL (70-99) 225mg/dL (70-99) Laboratory Tests Test 12/10/16 16:34 12/10/16 16:50 12/10/16 20:45 12/11/16 07:48 Glucose (Fingerstick) 233mg/dL (70-99) 217mg/dL (70-99) 225mg/dL (70-99) Influenza Type A Antigen Negative (NEGATIVE) Influenza Type B Antigen Negative (NEGATIVE) Medications Active Scripts Medications Dose Route/Sig Days Date Category Prednisone 10 Mg Tablet 10 Mg PO DAILY 09/23/16 Reported Cefpodoxime Proxetil 200 Mg Tablet 1 Tab PO BID 09/23/16 Reported Amlodipine Besylate 2.5 Mg Tablet 2.5 Mg PO DAILY 09/19/16 Reported Atorvastatin Calcium 20 Mg Tablet 20 Mg PO DAILY 09/19/16 Reported Isosorbide Mononitrate Er (Isosorbide Mononitrate) 30 Mg Tab.er.24h 30 Mg PO DAILY 09/19/16 Reported Levothyroxine Sodium 88 Mcg Tablet 88 Mcg PO DAILY06 09/19/16 Reported Ventolin Hfa Inhaler (Albuterol Sulfate) 18 Gm Hfa.aer.ad 2 Puff INH PRN QID PRN 09/19/16 Reported Bupropion Xl (Bupropion Hcl) 300 Mg Tab.er.24h 300 Mg PO DAILY 09/19/16 Reported Breo Ellipta 100-25 Mcg Inh (Fluticasone/Vilanterol) 1 Each Aer.pow.ba 1 Puff IH DAILY 09/19/16 Reported Hydrocodone-Apap 5-325 (Hydrocodone Bit/Acetaminophen) 1 Each Tablet 1 Tab PO PRN Q8HRS PRN 09/19/16 Reported Carafate (Sucralfate) 1 Gm Tablet 1 Gm PO QIDACHS 30 06/26/16 Rx Nexium Capsule (Esomeprazole Magnesium) 40 Mg Capsule.dr 1 Cap PO DAILY 06/24/16 Reported Metoprolol Succinate ( Xl ) (Metoprolol Succinate) 25 Mg Tab.er.24h 2 Tab PO DAILY 06/24/16 Reported Aspir 81 (Aspirin) 81 Mg Tablet.dr 1 Tab PO DAILY 11/22/15 Reported Effient (Prasugrel Hcl) 10 Mg Tablet 10 Mg PO DAILYWBKFT 11/22/15 Rx Xanax (Alprazolam) 0.25 Mg Tablet 0.25 Mg PO PRN TID PRN 11/19/15 Reported Valtrex (Valacyclovir Hcl) 500 Mg Tablet 500 Mg PO BID 11/19/15 Reported Fenofibrate (Fenofibrate Nanocrystallized) 145 Mg Tablet 160 Mg PO DAILY 06/19/14 Reported Citalopram Hbr (Citalopram Hydrobromide) 40 Mg Tablet 40 Mg PO HS 03/23/14 Reported Lantus (Insulin Glargine,Hum.rec.anlog) 100 Unit/1 Ml Vial 35 Unit SQ HS 03/20/14 Reported Metformin Hcl 1,000 Mg Tablet 1,000 Mg PO BID 03/20/14 Reported Duoneb 0.5 Mg-3 Mg/3 Ml Soln (Ipratropium/Albuterol Sulfate) 3 Ml Ampul.neb 3 Ml IH QID 03/20/14 Reported Impression . 1. Acute exacerbation of chronic obstructive pulmonary disease 2. Acute viral syndrome. Neg for influenza. 3. No definite consolidation seen on the chest x-ray. 4. History of pulmonary embolism in 2011, which was treated short-term with anticoagulation as she developed gastrointestinal bleed at that time. Last 2 CAT scans have shown no evidence of any recurrent pulmonary embolism. Plan . 1. Continue with present oxygen, keep saturation 92%-94%. 2. IV Solu-Medrol 3. emperic antibiotics 4. DuoNeb to continue. 6. Influenza screen neg 7. add steroid neb to improve airway inflammation PIPER BARCENAS MD Dec 11, 2016 13:41
[2016-12-11] MEDS: BUDESONIDE 0.5 MG/2 ML NEBU NEB SCH ×2 (14:00→19:44)
[2016-12-11 15:00] VITALS: BP 139/70
[2016-12-11 19:00] VITALS: BP 137/75
[2016-12-11] MEDS: CITALOPRAM 20 MG TABLET. PO SCH (20:52)
[2016-12-11] MEDS: INSULIN DETEMIR 300 UNITS/3 ML INSULN.PEN. SQ SCH (21:04)
[2016-12-11 23:00] VITALS: BP 164/89
[2016-12-12 03:00] VITALS: BP 156/80
[2016-12-12] MEDS: PROMETH/CODEINE 6.25/10MG 5 ML SYRUP. PO PRN ×2 (05:33→20:25)
[2016-12-12] MEDS: HYDROCODONE/APAP 5/325MG TABLET. PO PRN ×2 (05:33→20:26)
[2016-12-12] MEDS: LEVOTHYROXINE 88 MCG TABLET PO SCH (05:33)
[2016-12-12] MEDS: methylPREDNISolone SOD SUCC PF 40 MG/ML VIAL. IV SCH (05:33)
[2016-12-12 05:52] LABS: CALCIUM 9.2 mg/dL (8.5-10.1); CREATININE 1.1 mg/dL (0.6-1.0); GFR 50.3; POTASSIUM 5.5 mmol/L (3.5-5.1)
[2016-12-12] MEDS: BUDESONIDE 0.5 MG/2 ML NEBU NEB SCH ×2 (07:25→19:10)
[2016-12-12] MEDS: IPRATRPIUM/ALBUTEROL 0.5/2.5MG 3 ML NEBU. IH SCH ×4 (07:25→19:10)
[2016-12-12 07:30] VITALS: BP 132/62
[2016-12-12] MEDS: buPROPion XL 150 MG TAB.ER.24H PO SCH (08:07)
[2016-12-12] MEDS: valACYclovir 500 MG TABLET. PO SCH ×2 (08:08→20:26)
[2016-12-12] MEDS: SUCRALFATE 1 GM TABLET. PO SCH ×4 (08:08→20:26)
[2016-12-12] MEDS: AMLODIPINE BESYLATE 2.5 MG TABLET PO SCH (08:08)
[2016-12-12] MEDS: PANTOPRAZOLE 40 MG TABLET. PO SCH (08:08)
[2016-12-12] MEDS: ASPIRIN ENTERIC COATED 81 MG TABLET.DR. PO SCH (08:08)
[2016-12-12] MEDS: FENOFIBRATE,MICRONIZED 134 MG CAPSULE PO SCH (08:08)
[2016-12-12] MEDS: CEFPODOXIME PROXETIL 200 MG TABLET PO SCH ×2 (08:08→20:26)
[2016-12-12] MEDS: BENZOCAINE/MENTHOL LOZENGE. PO PRN ×3 (08:08→17:05)
[2016-12-12] MEDS: ISOSORBIDE MONONITRATE ER 30 MG TAB.ER.24H PO SCH (08:08)
[2016-12-12] MEDS: PRASUGREL 10 MG TABLET. PO SCH (08:08)
[2016-12-12] MEDS: METOPROLOL SUCC 24HR ER 50 MG TAB.ER.24H. PO SCH (08:09)
[2016-12-12] MEDS: ATORVASTATIN CALCIUM 20 MG TABLET PO SCH (08:13)
[2016-12-12] MEDS: INSULIN ASPART 300 UNITS/3 ML INSULN.PEN SQ SCH ×6 (08:17→17:11)
--- NOTE | 2016-12-12 10:36 | PDOC ---
PULMONARY PROGRESS NOTES Subjective still with cough but feels better Vitals Vital Signs Date Time Temp Pulse Resp B/P Pulse Ox O2 Delivery O2 Flow Rate FiO2 12/12/16 08:09 81 132/62 12/12/16 08:00 Nasal Cannula 3.0 12/12/16 07:30 97.7 20 96 97.7 General: Alert, Oriented X4, No acute distress HEENT: Other Lungs: Clear Cardiovascular: S1, S2 Abdomen: Soft, Non-tender Extremities: No Edema Labs Laboratory Tests Test 12/10/16 11:35 12/10/16 16:34 12/10/16 16:50 12/10/16 20:45 Glucose (Fingerstick) 166mg/dL (70-99) 233mg/dL (70-99) 217mg/dL (70-99) Influenza Type A Antigen Negative (NEGATIVE) Influenza Type B Antigen Negative (NEGATIVE) Test 12/11/16 07:48 12/11/16 11:26 12/11/16 17:20 12/11/16 20:50 Glucose (Fingerstick) 225mg/dL (70-99) 239mg/dL (70-99) 102mg/dL (70-99) 219mg/dL (70-99) Test 12/12/16 04:25 12/12/16 08:06 Sodium Level 142mmol/L (136-145) Potassium Level 5.5mmol/L (3.5-5.1) Chloride Level 101mmol/L (98-107) Carbon Dioxide Level 37mmol/L (21-32) Anion Gap 4 (6-14) Blood Urea Nitrogen 25mg/dL (7-20) Creatinine 1.1mg/dL (0.6-1.0) Estimated GFR (Cockcroft-Gault) 50.3 Glucose Level 162mg/dL (70-99) Calcium Level 9.2mg/dL (8.5-10.1) Glucose (Fingerstick) 155mg/dL (70-99) Laboratory Tests Test 12/11/16 11:26 12/11/16 17:20 12/11/16 20:50 12/12/16 04:25 Glucose (Fingerstick) 239mg/dL (70-99) 102mg/dL (70-99) 219mg/dL (70-99) Sodium Level 142mmol/L (136-145) Potassium Level 5.5mmol/L (3.5-5.1) Chloride Level 101mmol/L (98-107) Carbon Dioxide Level 37mmol/L (21-32) Anion Gap 4 (6-14) Blood Urea Nitrogen 25mg/dL (7-20) Creatinine 1.1mg/dL (0.6-1.0) Estimated GFR (Cockcroft-Gault) 50.3 Glucose Level 162mg/dL (70-99) Calcium Level 9.2mg/dL (8.5-10.1) Test 12/12/16 08:06 Glucose (Fingerstick) 155mg/dL (70-99) Medications Active Scripts Medications Dose Route/Sig Days Date Category Prednisone 10 Mg Tablet 10 Mg PO DAILY 09/23/16 Reported Cefpodoxime Proxetil 200 Mg Tablet 1 Tab PO BID 09/23/16 Reported Amlodipine Besylate 2.5 Mg Tablet 2.5 Mg PO DAILY 09/19/16 Reported Atorvastatin Calcium 20 Mg Tablet 20 Mg PO DAILY 09/19/16 Reported Isosorbide Mononitrate Er (Isosorbide Mononitrate) 30 Mg Tab.er.24h 30 Mg PO DAILY 09/19/16 Reported Levothyroxine Sodium 88 Mcg Tablet 88 Mcg PO DAILY06 09/19/16 Reported Ventolin Hfa Inhaler (Albuterol Sulfate) 18 Gm Hfa.aer.ad 2 Puff INH PRN QID PRN 09/19/16 Reported Bupropion Xl (Bupropion Hcl) 300 Mg Tab.er.24h 300 Mg PO DAILY 09/19/16 Reported Breo Ellipta 100-25 Mcg Inh (Fluticasone/Vilanterol) 1 Each Aer.pow.ba 1 Puff IH DAILY 09/19/16 Reported Hydrocodone-Apap 5-325 (Hydrocodone Bit/Acetaminophen) 1 Each Tablet 1 Tab PO PRN Q8HRS PRN 09/19/16 Reported Carafate (Sucralfate) 1 Gm Tablet 1 Gm PO QIDACHS 30 06/26/16 Rx Nexium Capsule (Esomeprazole Magnesium) 40 Mg Capsule.dr 1 Cap PO DAILY 06/24/16 Reported Metoprolol Succinate ( Xl ) (Metoprolol Succinate) 25 Mg Tab.er.24h 2 Tab PO DAILY 06/24/16 Reported Aspir 81 (Aspirin) 81 Mg Tablet.dr 1 Tab PO DAILY 11/22/15 Reported Effient (Prasugrel Hcl) 10 Mg Tablet 10 Mg PO DAILYWBKFT 11/22/15 Rx Xanax (Alprazolam) 0.25 Mg Tablet 0.25 Mg PO PRN TID PRN 11/19/15 Reported Valtrex (Valacyclovir Hcl) 500 Mg Tablet 500 Mg PO BID 11/19/15 Reported Fenofibrate (Fenofibrate Nanocrystallized) 145 Mg Tablet 160 Mg PO DAILY 06/19/14 Reported Citalopram Hbr (Citalopram Hydrobromide) 40 Mg Tablet 40 Mg PO HS 03/23/14 Reported Lantus (Insulin Glargine,Hum.rec.anlog) 100 Unit/1 Ml Vial 35 Unit SQ HS 03/20/14 Reported Metformin Hcl 1,000 Mg Tablet 1,000 Mg PO BID 03/20/14 Reported Duoneb 0.5 Mg-3 Mg/3 Ml Soln (Ipratropium/Albuterol Sulfate) 3 Ml Ampul.neb 3 Ml IH QID 03/20/14 Reported Impression . 1. Acute exacerbation of chronic obstructive pulmonary disease 2. Acute viral syndrome. Neg for influenza. 3. No definite consolidation seen on the chest x-ray. 4. History of pulmonary embolism in 2011, which was treated short-term with anticoagulation as she developed gastrointestinal bleed at that time. Last 2 CAT scans have shown no evidence of any recurrent pulmonary embolism. Plan . 1. Continue with present oxygen, keep saturation 92%-94%. 2. IV Solu-Medrol with taper 3. emperic antibiotics 4. DuoNeb to continue. 6. Influenza screen neg 7. steroid neb to improve airway inflammation 8. d/c home in PIPER Altman MD Dec 12, 2016 10:36
[2016-12-12 11:09] VITALS: BP 140/74
[2016-12-12 14:48] VITALS: BP 181/95
--- NOTE | 2016-12-12 18:31 | PDOC ---
SUBJECTIVE Subjective Still has some cough, and wheezes OBJECTIVE Vital Signs Vital Signs Date Time Temp Pulse Resp B/P Pulse Ox O2 Delivery O2 Flow Rate FiO2 12/12/16 16:04 Nasal Cannula 3.0 12/12/16 14:48 97.9 84 20 181/95 92 Nasal Cannula 97.9 12/12/16 11:18 Nasal Cannula 3.0 12/12/16 11:09 96.8 76 22 140/74 93 Nasal Cannula 96.8 12/12/16 08:09 81 132/62 12/12/16 08:08 81 132/62 12/12/16 08:08 81 132/62 12/12/16 08:00 Nasal Cannula 3.0 12/12/16 07:30 97.7 81 20 132/62 96 Nasal Cannula 3.0 97.7 12/12/16 07:25 95 Nasal Cannula 3.0 12/12/16 05:33 94 Nasal Cannula 3.0 12/12/16 03:00 97.7 72 18 156/80 94 Nasal Cannula 3.0 97.7 12/11/16 23:00 97.9 80 18 164/89 94 Nasal Cannula 3.0 97.9 12/11/16 21:59 97 Nasal Cannula 3.0 12/11/16 20:59 97 Nasal Cannula 3.0 12/11/16 20:01 Nasal Cannula 3.0 12/11/16 19:47 97 Nasal Cannula 3.0 12/11/16 19:00 99.1 82 18 137/75 93 Nasal Cannula 3.0 99.1 I & O Intake and Output 12/12/16 07:00 Intake Total 600 ml Balance 600 ml Intake Oral 600 ml # Voids 7 PHYSICAL EXAM Physical Exam Lungs: Is better air movement still has scattered wheezes and coarse breath sounds Heart regular rate and rhythm Abdomen soft and nontender Extremities no edema ASSESSMENT/PLAN Assessment/Plan 1. COPD exaccerbation Continue bronchodilators and steroids, she does need supplemental oxygen at rest and with activity thus need portable oxygen 2. Diabetes, insulin dependent -ibetter 3- Hx GI bleed Hope will continue to improve and be able to be discharged home tomorrow Problems: COMMENT Lab Laboratory Tests Test 12/11/16 20:50 12/12/16 04:25 12/12/16 08:06 12/12/16 10:10 Glucose (Fingerstick) 219mg/dL (70-99) 155mg/dL (70-99) Sodium Level 142mmol/L (136-145) Potassium Level 5.5mmol/L (3.5-5.1) 4.5mmol/L (3.5-5.1) Chloride Level 101mmol/L (98-107) Carbon Dioxide Level 37mmol/L (21-32) Anion Gap 4 (6-14) Blood Urea Nitrogen 25mg/dL (7-20) Creatinine 1.1mg/dL (0.6-1.0) Estimated GFR (Cockcroft-Gault) 50.3 Glucose Level 162mg/dL (70-99) Calcium Level 9.2mg/dL (8.5-10.1) Test 12/12/16 10:56 12/12/16 17:03 Glucose (Fingerstick) 204mg/dL (70-99) 157mg/dL (70-99) AURA TEJEDA MD Dec 12, 2016 18:31
[2016-12-12] MEDS ORDERED: PRED-220 PO (18:37)
[2016-12-12] MEDS ORDERED: INSU100I17 SQ (18:37)
[2016-12-12 19:00] VITALS: BP 145/71
[2016-12-12] MEDS: CITALOPRAM 20 MG TABLET. PO SCH (20:25)
[2016-12-12] MEDS: INSULIN DETEMIR 300 UNITS/3 ML INSULN.PEN. SQ SCH (20:26)
[2016-12-12 23:00] VITALS: BP 159/78
[2016-12-13 03:00] VITALS: BP 144/61
[2016-12-13 05:08] LABS: CALCIUM 8.7 mg/dL (8.5-10.1); CREATININE 1.2 mg/dL (0.6-1.0); GFR 45.5; POTASSIUM 4.3 mmol/L (3.5-5.1)
[2016-12-13] MEDS: LEVOTHYROXINE 88 MCG TABLET PO SCH (05:58)
[2016-12-13 07:30] VITALS: BP 163/86
[2016-12-13] MEDS: BUDESONIDE 0.5 MG/2 ML NEBU NEB SCH ×2 (07:42→19:40)
[2016-12-13] MEDS: IPRATRPIUM/ALBUTEROL 0.5/2.5MG 3 ML NEBU. IH SCH ×4 (07:42→19:40)
[2016-12-13] MEDS: INSULIN ASPART 300 UNITS/3 ML INSULN.PEN SQ SCH ×6 (08:00→17:32)
--- NOTE | 2016-12-13 09:31 | PDOC ---
SUBJECTIVE Subjective She had another bout of severe spasm wheezing and shortness of breasts this morning, felt somewhat better after the breathing treatment OBJECTIVE Vital Signs Vital Signs Date Time Temp Pulse Resp B/P Pulse Ox O2 Delivery O2 Flow Rate FiO2 12/13/16 07:48 95 Nasal Cannula 3.0 12/13/16 07:45 95 Nasal Cannula 3.0 12/13/16 07:30 97.6 75 18 163/86 97 Nasal Cannula 3.0 97.6 12/13/16 03:00 96.3 62 18 144/61 96 Nasal Cannula 3.0 96.3 12/12/16 23:00 76 20 159/78 95 Nasal Cannula 3.0 12/12/16 21:26 92 Nasal Cannula 3.0 12/12/16 20:26 92 Nasal Cannula 3.0 12/12/16 19:55 Nasal Cannula 3.0 12/12/16 19:13 92 Nasal Cannula 3.0 12/12/16 19:00 97.9 74 20 145/71 92 Nasal Cannula 3.0 97.9 12/12/16 16:04 Nasal Cannula 3.0 12/12/16 14:48 97.9 84 20 181/95 92 Nasal Cannula 97.9 12/12/16 11:18 Nasal Cannula 3.0 12/12/16 11:09 96.8 76 22 140/74 93 Nasal Cannula 96.8 I & O Intake and Output 12/13/16 07:00 Intake Total 3220 ml Balance 3220 ml Intake Oral 3220 ml # Voids 12 PHYSICAL EXAM Physical Exam She is a still having difficulty with wheezing and poor air movement ASSESSMENT/PLAN Assessment/Plan Reluctant to discharge the patient yet, we'll continue current plan hopefully she will be more stable tomorrow to be switched to by mouth steroids and discharged home Problems: COMMENT Lab Laboratory Tests Test 12/12/16 10:10 12/12/16 10:56 12/12/16 17:03 12/12/16 20:23 Potassium Level 4.5mmol/L (3.5-5.1) Glucose (Fingerstick) 204mg/dL (70-99) 157mg/dL (70-99) 85mg/dL (70-99) Test 12/12/16 23:43 12/13/16 03:23 12/13/16 07:49 12/13/16 08:29 Glucose (Fingerstick) 130mg/dL (70-99) 60mg/dL (70-99) 137mg/dL (70-99) Sodium Level 144mmol/L (136-145) Potassium Level 4.3mmol/L (3.5-5.1) Chloride Level 101mmol/L (98-107) Carbon Dioxide Level 40mmol/L (21-32) Anion Gap 3 (6-14) Blood Urea Nitrogen 26mg/dL (7-20) Creatinine 1.2mg/dL (0.6-1.0) Estimated GFR (Cockcroft-Gault) 45.5 Glucose Level 113mg/dL (70-99) Calcium Level 8.7mg/dL (8.5-10.1) AURA TEJEDA MD Dec 13, 2016 09:31
[2016-12-13] MEDS: PANTOPRAZOLE 40 MG TABLET. PO SCH (09:57)
[2016-12-13] MEDS: buPROPion XL 150 MG TAB.ER.24H PO SCH (09:57)
[2016-12-13] MEDS: FENOFIBRATE,MICRONIZED 134 MG CAPSULE PO SCH (09:57)
[2016-12-13] MEDS: ATORVASTATIN CALCIUM 20 MG TABLET PO SCH (09:57)
[2016-12-13] MEDS: ASPIRIN ENTERIC COATED 81 MG TABLET.DR. PO SCH (09:57)
[2016-12-13] MEDS: CEFPODOXIME PROXETIL 200 MG TABLET PO SCH ×2 (09:57→20:55)
[2016-12-13] MEDS: valACYclovir 500 MG TABLET. PO SCH ×2 (09:58→20:56)
[2016-12-13] MEDS: PRASUGREL 10 MG TABLET. PO SCH (09:58)
[2016-12-13] MEDS: SUCRALFATE 1 GM TABLET. PO SCH ×4 (09:58→20:56)
[2016-12-13] MEDS: AMLODIPINE BESYLATE 2.5 MG TABLET PO SCH (09:58)
[2016-12-13] MEDS: ISOSORBIDE MONONITRATE ER 30 MG TAB.ER.24H PO SCH (09:59)
[2016-12-13] MEDS: METOPROLOL SUCC 24HR ER 50 MG TAB.ER.24H. PO SCH (09:59)
[2016-12-13] MEDS: methylPREDNISolone SOD SUCC PF 40 MG/ML VIAL. IV SCH ×2 (10:02→20:55)
[2016-12-13 11:30] VITALS: BP 161/89
--- NOTE | 2016-12-13 12:08 | PDOC ---
PULMONARY PROGRESS NOTES Subjective still with cough but feels better Vitals Vital Signs Date Time Temp Pulse Resp B/P Pulse Ox O2 Delivery O2 Flow Rate FiO2 12/13/16 11:44 Nasal Cannula 3.0 12/13/16 09:59 75 163/86 12/13/16 07:48 95 12/13/16 07:30 97.6 18 97.6 General: Alert, Oriented X4, No acute distress HEENT: Other Lungs: Clear Cardiovascular: S1, S2 Abdomen: Soft, Non-tender Extremities: No Edema Labs Laboratory Tests Test 12/11/16 17:20 12/11/16 20:50 12/12/16 04:25 12/12/16 08:06 Glucose (Fingerstick) 102mg/dL (70-99) 219mg/dL (70-99) 155mg/dL (70-99) Sodium Level 142mmol/L (136-145) Potassium Level 5.5mmol/L (3.5-5.1) Chloride Level 101mmol/L (98-107) Carbon Dioxide Level 37mmol/L (21-32) Anion Gap 4 (6-14) Blood Urea Nitrogen 25mg/dL (7-20) Creatinine 1.1mg/dL (0.6-1.0) Estimated GFR (Cockcroft-Gault) 50.3 Glucose Level 162mg/dL (70-99) Calcium Level 9.2mg/dL (8.5-10.1) Test 12/12/16 10:10 12/12/16 10:56 12/12/16 17:03 12/12/16 20:23 Potassium Level 4.5mmol/L (3.5-5.1) Glucose (Fingerstick) 204mg/dL (70-99) 157mg/dL (70-99) 85mg/dL (70-99) Test 12/12/16 23:43 12/13/16 03:23 12/13/16 07:49 12/13/16 08:29 Glucose (Fingerstick) 130mg/dL (70-99) 60mg/dL (70-99) 137mg/dL (70-99) Sodium Level 144mmol/L (136-145) Potassium Level 4.3mmol/L (3.5-5.1) Chloride Level 101mmol/L (98-107) Carbon Dioxide Level 40mmol/L (21-32) Anion Gap 3 (6-14) Blood Urea Nitrogen 26mg/dL (7-20) Creatinine 1.2mg/dL (0.6-1.0) Estimated GFR (Cockcroft-Gault) 45.5 Glucose Level 113mg/dL (70-99) Calcium Level 8.7mg/dL (8.5-10.1) Test 12/13/16 11:31 Glucose (Fingerstick) 147mg/dL (70-99) Laboratory Tests Test 12/12/16 17:03 12/12/16 20:23 12/12/16 23:43 12/13/16 03:23 Glucose (Fingerstick) 157mg/dL (70-99) 85mg/dL (70-99) 130mg/dL (70-99) Sodium Level 144mmol/L (136-145) Potassium Level 4.3mmol/L (3.5-5.1) Chloride Level 101mmol/L (98-107) Carbon Dioxide Level 40mmol/L (21-32) Anion Gap 3 (6-14) Blood Urea Nitrogen 26mg/dL (7-20) Creatinine 1.2mg/dL (0.6-1.0) Estimated GFR (Cockcroft-Gault) 45.5 Glucose Level 113mg/dL (70-99) Calcium Level 8.7mg/dL (8.5-10.1) Test 12/13/16 07:49 12/13/16 08:29 12/13/16 11:31 Glucose (Fingerstick) 60mg/dL (70-99) 137mg/dL (70-99) 147mg/dL (70-99) Medications Active Scripts Medications Dose Route/Sig Days Date Category Prednisone 10 Mg Tablet 10 Mg PO DAILY 09/23/16 Reported Cefpodoxime Proxetil 200 Mg Tablet 1 Tab PO BID 09/23/16 Reported Amlodipine Besylate 2.5 Mg Tablet 2.5 Mg PO DAILY 09/19/16 Reported Atorvastatin Calcium 20 Mg Tablet 20 Mg PO DAILY 09/19/16 Reported Isosorbide Mononitrate Er (Isosorbide Mononitrate) 30 Mg Tab.er.24h 30 Mg PO DAILY 09/19/16 Reported Levothyroxine Sodium 88 Mcg Tablet 88 Mcg PO DAILY06 09/19/16 Reported Ventolin Hfa Inhaler (Albuterol Sulfate) 18 Gm Hfa.aer.ad 2 Puff INH PRN QID PRN 09/19/16 Reported Bupropion Xl (Bupropion Hcl) 300 Mg Tab.er.24h 300 Mg PO DAILY 09/19/16 Reported Breo Ellipta 100-25 Mcg Inh (Fluticasone/Vilanterol) 1 Each Aer.pow.ba 1 Puff IH DAILY 09/19/16 Reported Hydrocodone-Apap 5-325 (Hydrocodone Bit/Acetaminophen) 1 Each Tablet 1 Tab PO PRN Q8HRS PRN 09/19/16 Reported Carafate (Sucralfate) 1 Gm Tablet 1 Gm PO QIDACHS 30 06/26/16 Rx Nexium Capsule (Esomeprazole Magnesium) 40 Mg Capsule.dr 1 Cap PO DAILY 06/24/16 Reported Metoprolol Succinate ( Xl ) (Metoprolol Succinate) 25 Mg Tab.er.24h 2 Tab PO DAILY 06/24/16 Reported Aspir 81 (Aspirin) 81 Mg Tablet.dr 1 Tab PO DAILY 11/22/15 Reported Effient (Prasugrel Hcl) 10 Mg Tablet 10 Mg PO DAILYWBKFT 11/22/15 Rx Xanax (Alprazolam) 0.25 Mg Tablet 0.25 Mg PO PRN TID PRN 11/19/15 Reported Valtrex (Valacyclovir Hcl) 500 Mg Tablet 500 Mg PO BID 11/19/15 Reported Fenofibrate (Fenofibrate Nanocrystallized) 145 Mg Tablet 160 Mg PO DAILY 06/19/14 Reported Citalopram Hbr (Citalopram Hydrobromide) 40 Mg Tablet 40 Mg PO HS 03/23/14 Reported Lantus (Insulin Glargine,Hum.rec.anlog) 100 Unit/1 Ml Vial 35 Unit SQ HS 03/20/14 Reported Metformin Hcl 1,000 Mg Tablet 1,000 Mg PO BID 03/20/14 Reported Duoneb 0.5 Mg-3 Mg/3 Ml Soln (Ipratropium/Albuterol Sulfate) 3 Ml Ampul.neb 3 Ml IH QID 03/20/14 Reported Impression . 1. Acute exacerbation of chronic obstructive pulmonary disease 2. Acute viral syndrome. Neg for influenza. 3. No definite consolidation seen on the chest x-ray. 4. History of pulmonary embolism in 2011, which was treated short-term with anticoagulation as she developed gastrointestinal bleed at that time. Last 2 CAT scans have shown no evidence of any recurrent pulmonary embolism. Plan . 1. Continue with present oxygen, keep saturation 92%-94%. 2. IV Solu-Medrol with taper 3. emperic antibiotics 4. DuoNeb to continue. 6. Influenza screen neg 7. steroid neb to improve airway inflammation 8. d/c home probably in PIPER Altman MD Dec 13, 2016 12:08
[2016-12-13] MEDS: ALPRAZOLAM 0.25 MG TABLET PO PRN ×2 (13:38→20:56)
[2016-12-13 15:15] VITALS: BP 140/76
[2016-12-13 19:00] VITALS: BP 137/61
[2016-12-13] MEDS: CITALOPRAM 20 MG TABLET. PO SCH (20:56)
[2016-12-13] MEDS: INSULIN DETEMIR 300 UNITS/3 ML INSULN.PEN. SQ SCH (21:01)
[2016-12-13 22:55] VITALS: BP 169/74
[2016-12-14 03:00] VITALS: BP 149/94
[2016-12-14] MEDS: LEVOTHYROXINE 88 MCG TABLET PO SCH (05:55)
[2016-12-14 07:00] VITALS: BP 158/91
[2016-12-14] MEDS: IPRATRPIUM/ALBUTEROL 0.5/2.5MG 3 ML NEBU. IH SCH ×3 (08:07→15:05)
[2016-12-14] MEDS: BUDESONIDE 0.5 MG/2 ML NEBU NEB SCH (08:07)
[2016-12-14] MEDS: ALPRAZOLAM 0.25 MG TABLET PO PRN (08:43)
[2016-12-14] MEDS: PRASUGREL 10 MG TABLET. PO SCH (08:43)
[2016-12-14] MEDS: PANTOPRAZOLE 40 MG TABLET. PO SCH (08:43)
[2016-12-14] MEDS: SUCRALFATE 1 GM TABLET. PO SCH ×2 (08:43→12:44)
[2016-12-14] MEDS: INSULIN ASPART 300 UNITS/3 ML INSULN.PEN SQ SCH ×4 (08:48→12:51)
[2016-12-14] MEDS: methylPREDNISolone SOD SUCC PF 40 MG/ML VIAL. IV SCH (08:55)
[2016-12-14] MEDS: buPROPion XL 150 MG TAB.ER.24H PO SCH (10:43)
[2016-12-14] MEDS: ATORVASTATIN CALCIUM 20 MG TABLET PO SCH (10:43)
[2016-12-14] MEDS: ISOSORBIDE MONONITRATE ER 30 MG TAB.ER.24H PO SCH (10:44)
[2016-12-14] MEDS: FENOFIBRATE,MICRONIZED 134 MG CAPSULE PO SCH (10:45)
[2016-12-14] MEDS: valACYclovir 500 MG TABLET. PO SCH (10:45)
[2016-12-14] MEDS: ASPIRIN ENTERIC COATED 81 MG TABLET.DR. PO SCH (10:45)
[2016-12-14] MEDS: AMLODIPINE BESYLATE 2.5 MG TABLET PO SCH (10:45)
[2016-12-14] MEDS: METOPROLOL SUCC 24HR ER 50 MG TAB.ER.24H. PO SCH (10:45)
[2016-12-14] MEDS: CEFPODOXIME PROXETIL 200 MG TABLET PO SCH (10:45)
--- NOTE | 2016-12-14 10:47 | PDOC ---
SUBJECTIVE Subjective She is feeling better today, her wheezing is better, she is requiring oxygen at 3 L/m OBJECTIVE Vital Signs Vital Signs Date Time Temp Pulse Resp B/P Pulse Ox O2 Delivery O2 Flow Rate FiO2 12/14/16 08:17 96 Nasal Cannula 3.0 12/14/16 08:16 96 Nasal Cannula 3.0 12/14/16 07:00 97.5 81 20 158/91 93 Nasal Cannula 3.0 97.5 12/14/16 03:00 97.7 78 20 149/94 95 Nasal Cannula 3.0 97.7 12/13/16 22:55 97.7 77 20 169/74 93 Nasal Cannula 3.0 97.7 12/13/16 19:42 91 Nasal Cannula 2.5 12/13/16 19:42 93 Nasal Cannula 3.0 12/13/16 19:10 Nasal Cannula 3.0 12/13/16 19:00 97.7 78 20 137/61 93 Nasal Cannula 3.0 97.7 12/13/16 16:33 Nasal Cannula 3.0 12/13/16 15:15 98.3 84 18 140/76 95 Nasal Cannula 3.0 98.3 12/13/16 11:44 Nasal Cannula 3.0 12/13/16 11:30 98.2 85 22 161/89 96 Nasal Cannula 3.0 98.2 I & O Intake and Output 12/14/16 07:00 Intake Total 1400 ml Balance 1400 ml Intake Oral 1400 ml # Voids 7 PHYSICAL EXAM Physical Exam Lungs with better air movement still a few scattered wheezes but better than yesterday Heart regular rate and rhythm Abdomen soft nontender Extremities no edema ASSESSMENT/PLAN Assessment/Plan Patient is clinically better today, we will go ahead and discharge the patient home switched to steroids by mouth and by mouth antibiotics, prescriptions are written and patient was instructed to continue her breathing treatments was 2 units per times a day and her Symbicort she will follow in the office in 10 days Problems: COMMENT Lab Laboratory Tests Test 12/13/16 11:31 12/13/16 17:12 12/13/16 20:37 Glucose (Fingerstick) 147mg/dL (70-99) 148mg/dL (70-99) 160mg/dL (70-99) AURA TEJEDA MD Dec 14, 2016 10:47
[2016-12-14 11:00] VITALS: BP 176/90
--- NOTE | 2016-12-14 12:15 | PDOC ---
PULMONARY PROGRESS NOTES Subjective feels better Vitals Vital Signs Date Time Temp Pulse Resp B/P Pulse Ox O2 Delivery O2 Flow Rate FiO2 12/14/16 11:50 96 Nasal Cannula 3.0 12/14/16 10:45 81 158/91 12/14/16 07:00 97.5 20 97.5 General: Alert, Oriented X4, No acute distress HEENT: Other Lungs: Clear Cardiovascular: S1, S2 Abdomen: Soft, Non-tender Extremities: No Edema Labs Laboratory Tests Test 12/12/16 17:03 12/12/16 20:23 12/12/16 23:43 12/13/16 03:23 Glucose (Fingerstick) 157mg/dL (70-99) 85mg/dL (70-99) 130mg/dL (70-99) Sodium Level 144mmol/L (136-145) Potassium Level 4.3mmol/L (3.5-5.1) Chloride Level 101mmol/L (98-107) Carbon Dioxide Level 40mmol/L (21-32) Anion Gap 3 (6-14) Blood Urea Nitrogen 26mg/dL (7-20) Creatinine 1.2mg/dL (0.6-1.0) Estimated GFR (Cockcroft-Gault) 45.5 Glucose Level 113mg/dL (70-99) Calcium Level 8.7mg/dL (8.5-10.1) Test 12/13/16 07:49 12/13/16 08:29 12/13/16 11:31 12/13/16 17:12 Glucose (Fingerstick) 60mg/dL (70-99) 137mg/dL (70-99) 147mg/dL (70-99) 148mg/dL (70-99) Test 12/13/16 20:37 12/14/16 07:42 12/14/16 11:07 Glucose (Fingerstick) 160mg/dL (70-99) 151mg/dL (70-99) 131mg/dL (70-99) Laboratory Tests Test 12/13/16 17:12 12/13/16 20:37 12/14/16 07:42 12/14/16 11:07 Glucose (Fingerstick) 148mg/dL (70-99) 160mg/dL (70-99) 151mg/dL (70-99) 131mg/dL (70-99) Medications Active Scripts Medications Dose Route/Sig Days Date Category Prednisone 10 Mg Tablet 10 Mg PO DAILY 09/23/16 Reported Cefpodoxime Proxetil 200 Mg Tablet 1 Tab PO BID 09/23/16 Reported Amlodipine Besylate 2.5 Mg Tablet 2.5 Mg PO DAILY 09/19/16 Reported Atorvastatin Calcium 20 Mg Tablet 20 Mg PO DAILY 09/19/16 Reported Isosorbide Mononitrate Er (Isosorbide Mononitrate) 30 Mg Tab.er.24h 30 Mg PO DAILY 09/19/16 Reported Levothyroxine Sodium 88 Mcg Tablet 88 Mcg PO DAILY06 09/19/16 Reported Ventolin Hfa Inhaler (Albuterol Sulfate) 18 Gm Hfa.aer.ad 2 Puff INH PRN QID PRN 09/19/16 Reported Bupropion Xl (Bupropion Hcl) 300 Mg Tab.er.24h 300 Mg PO DAILY 09/19/16 Reported Breo Ellipta 100-25 Mcg Inh (Fluticasone/Vilanterol) 1 Each Aer.pow.ba 1 Puff IH DAILY 09/19/16 Reported Hydrocodone-Apap 5-325 (Hydrocodone Bit/Acetaminophen) 1 Each Tablet 1 Tab PO PRN Q8HRS PRN 09/19/16 Reported Carafate (Sucralfate) 1 Gm Tablet 1 Gm PO QIDACHS 30 06/26/16 Rx Nexium Capsule (Esomeprazole Magnesium) 40 Mg Capsule.dr 1 Cap PO DAILY 06/24/16 Reported Metoprolol Succinate ( Xl ) (Metoprolol Succinate) 25 Mg Tab.er.24h 2 Tab PO DAILY 06/24/16 Reported Aspir 81 (Aspirin) 81 Mg Tablet.dr 1 Tab PO DAILY 11/22/15 Reported Effient (Prasugrel Hcl) 10 Mg Tablet 10 Mg PO DAILYWBKFT 11/22/15 Rx Xanax (Alprazolam) 0.25 Mg Tablet 0.25 Mg PO PRN TID PRN 11/19/15 Reported Valtrex (Valacyclovir Hcl) 500 Mg Tablet 500 Mg PO BID 11/19/15 Reported Fenofibrate (Fenofibrate Nanocrystallized) 145 Mg Tablet 160 Mg PO DAILY 06/19/14 Reported Citalopram Hbr (Citalopram Hydrobromide) 40 Mg Tablet 40 Mg PO HS 4/29/14 Reported Lantus (Insulin Glargine,Hum.rec.anlog) 100 Unit/1 Ml Vial 35 Unit SQ HS 03/20/14 Reported Metformin Hcl 1,000 Mg Tablet 1,000 Mg PO BID 03/20/14 Reported Duoneb 0.5 Mg-3 Mg/3 Ml Soln (Ipratropium/Albuterol Sulfate) 3 Ml Ampul.neb 3 Ml IH QID 03/20/14 Reported Impression . 1. Acute exacerbation of chronic obstructive pulmonary disease 2. Acute viral syndrome. Neg for influenza. 3. No definite consolidation seen on the chest x-ray. 4. History of pulmonary embolism in 2011, which was treated short-term with anticoagulation as she developed gastrointestinal bleed at that time. Last 2 CAT scans have shown no evidence of any recurrent pulmonary embolism. Plan . 1. Continue with present oxygen, keep saturation 92%-94%. 2. IV Solu-Medrol with taper 3. emperic antibiotics 4. DuoNeb to continue. 6. Influenza screen neg 7. steroid neb to improve airway inflammation 8. d/c home PIPER BARCENAS MD Dec 14, 2016 12:15
[2016-12-14] MEDS ORDERED: LIDO:MAALOX:DONNATAL 1:1:1 15 ML SINGLE DOSE SWSW ONE (13:45)
== END 2016-12-14 14:10 | disposition home or self-care (01) | DRG 865 ==
LOC: ER 09:47 → 5 NORTH 10:51
PROVIDERS: ADMIT Internal Medicine; ATTEND Internal Medicine
DX: B34.9 Viral infection, unspecified (principal); J96.00 Acute respiratory failure, unspecified whether with hypoxia or hypercapnia; I13.0 Hypertensive heart and chronic kidney disease with heart failure and stage 1 through stage 4 chronic kidney disease, or unspecified chronic kidney disease; J44.1 Chronic obstructive pulmonary disease with (acute) exacerbation; I50.30 Unspecified diastolic (congestive) heart failure; E03.9 Hypothyroidism, unspecified; E11.9 Type 2 diabetes mellitus without complications; N18.2 Chronic kidney disease, stage 2 (mild); Z96.652 Presence of left artificial knee joint; E78.00 Pure hypercholesterolemia, unspecified; E78.5 Hyperlipidemia, unspecified; G47.30 Sleep apnea, unspecified; K21.9 Gastro-esophageal reflux disease without esophagitis; K58.9 Irritable bowel syndrome, unspecified; Z79.4 Long term (current) use of insulin; Z82.49 Family history of ischemic heart disease and other diseases of the circulatory system; Z86.711 Personal history of pulmonary embolism; Z87.440 Personal history of urinary (tract) infections; Z87.891 Personal history of nicotine dependence; I25.2 Old myocardial infarction; Z90.49 Acquired absence of other specified parts of digestive tract; Z98.1 Arthrodesis status; Z99.81 Dependence on supplemental oxygen; Z88.1 Allergy status to other antibiotic agents
CPT/HCPCS: 36415; 71010; 80048; 80053; 82947; 83880; 84132; 84484; 85027; 87040; 87804; 93005; 94250; 94640; 94760; 96374; J1815; J2920; J2930; J7512; J7620; 99285-25

== ENCOUNTER 2017-01-14 09:05 | Emergency (ER) | payer MEDICARE, MEDICAID ==
[~2017-01-14] VITALS: Ht 162.6 cm; Wt 90.7 kg
[~2017-01-14 09:05] MED LIST changes: +INSU100I17 SQ; -VALS1TAB6 PO; +VALS1TAB8 PO
--- NOTE | 2017-01-14 10:20 | RAD ---
Chest, 2 views, 01/14/2017: History: Posterior chest wall pain Comparison is made to a study from 12/09/2016. The heart size and pulmonary vascularity are normal. The lungs are hyperexpanded compatible with emphysema. No acute infiltrate is seen. There is no evidence of pneumothorax or pleural fluid. The bony structures are demineralized. An old T6 vertebral compression fracture with vertebroplasty change is again noted. There are scattered spurs in the spine. IMPRESSION: No acute cardiopulmonary abnormality is detected.
[2017-01-14] MEDS ORDERED: CYCL5TAB PO (10:28)
--- NOTE | 2017-01-14 10:30 | PHYS DOC ---
Past Medical History Past Medical History: Anxiety, COPD, Diabetes-Type II, High Cholesterol, Hypertension, Hyperthyroid, MD Additional Past Medical Histor: EMPHYSEMA Past Surgical History: Other Additional Past Surgical Histo: left knee replacementx2, spinal fusion, right knee arthroplasty, CTR Alcohol Use: Rarely Drug Use: None Adult General Chief Complaint Chief Complaint: RIB PAIN [facility] HPI Patient is a 61 year old female who presents with for intermittent right posterior lower chest wall pain that is intermittent, spasm-like or sharp , lasting seconds at a time, occurring frequently, worse with movement of her thorax. States sometimes the pain makes it hard to breathe. She otherwise briefs normal without pain. She denies fever or chills, nausea or vomiting, cough, wheezing, hemoptysis, leg pain or swelling, orthopnea, exertional symptoms. Denies rash or trauma. Review of Systems Review of Systems Constitutional: Denies fever or chills [] Eyes: Denies change in visual acuity, redness, or eye pain [] HENT: Denies nasal congestion or sore throat [] Respiratory: Denies cough or shortness of breath [] Cardiovascular: No additional information not addressed in HPI [] GI: Denies abdominal pain, nausea, vomiting, bloody stools or diarrhea [] : Denies dysuria or hematuria [] Musculoskeletal: Denies back pain or joint pain [] Integument: Denies rash or skin lesions [] Neurologic: Denies headache, focal weakness or sensory changes [] Endocrine: Denies polyuria or polydipsia [] Allergies Allergies Allergies Coded Allergies Type Severity Reaction Last Updated Verified levofloxacin Allergy Intermediate Hives 09/21/15 Yes Physical Exam Physical Exam Constitutional: Well developed, well nourished, no acute distress, non-toxic appearance. [] HENT: Normocephalic, atraumatic, bilateral external ears normal, oropharynx moist, nose normal. [] Eyes: PERRLA, EOMI. [] Neck: Normal range of motion, supple. [] Cardiovascular:Heart rate regular rhythm [] Lungs & Thorax: Bilateral breath sounds clear to auscultation. No rash or tenderness to chest wall. No visual or palpable abnormality. [] Abdomen: Bowel sounds normal, soft, no tenderness. [] Skin: Warm, dry, no erythema, no rash. [] Back: No tenderness, no CVA tenderness. [] Extremities: ROM intact, no edema. [] Neurologic: Alert and oriented X 3, normal motor function, normal sensory function, no focal deficits noted. [] Psychologic: Affect normal, judgement normal, mood normal. [] Current Patient Data Vital Signs Vital Signs Date Time Temp Pulse Resp B/P Pulse Ox O2 Delivery O2 Flow Rate FiO2 01/14/17 09:19 98.5 100 22 134/78 96 Nasal Cannula 3 98.5 Radiology/Procedures Radiology/Procedures Chest xray as interpreted by me with no acute cardiopulmonary disease process Course & Med Decision Making Course & Med Decision Making Pertinent Labs and Imaging studies reviewed. (See chart for details) Suspect muscular skeletal chest wall pain. Discussed symptomatic care. Return precautions given. She understands and agrees with plan. Dragon Disclaimer Dragon Disclaimer This electronic medical record was generated, in whole or in part, using a voice recognition dictation system. Departure Departure Impression: Primary Impression: Chest wall pain Disposition: HOME, SELF-CARE Condition: STABLE Referrals: DMITRI COLMENARES MD (PCP) Patient Instructions: Chest Wall Pain, [id number] Additional Instructions: Take Tylenol or ibuprofen as needed for moderate pain. Take cyclobenzaprine as needed for muscle spasm. Do not drink, drive or operate heavy machinery after taking cyclobenzaprine as it may make you sleepy. Follow-up with your primary care doctor. Return for any concerns. Scripts Cyclobenzaprine Hcl 5 Mg Tablet1 Tab PO TID PRN MUSCLE SPASMS #10 TAB Prov:Justina FISCHER MD 01/14/17 Justina FISCHER MD Jan 14, 2017 10:30
[2017-01-14 10:32] VITALS: BP 138/78
== END 2017-01-14 10:53 | disposition home or self-care (01) ==
LOC: ER 09:05
DX: R07.89 Other chest pain (principal); J44.9 Chronic obstructive pulmonary disease, unspecified; E11.9 Type 2 diabetes mellitus without complications; E78.00 Pure hypercholesterolemia, unspecified; I10 Essential (primary) hypertension; I25.2 Old myocardial infarction; Z88.1 Allergy status to other antibiotic agents
CPT/HCPCS: 71020; 99284

== ENCOUNTER 2017-02-07 02:39 | Inpatient (IN) | payer MEDICARE, MEDICAID ==
[~2017-02-07] VITALS: Ht 162.6 cm; Wt 71.9 kg
[~2017-02-07 02:39] MED LIST changes: +CYCL5TAB PO
[2017-02-07] MEDS ORDERED: methylPREDNISolone SOD SUCC PF 125 MG/2 ML VIAL. IV ONE (03:00)
[2017-02-07] MEDS ORDERED: IPRATRPIUM/ALBUTEROL 0.5/2.5MG 3 ML NEBU. NEB ONE (03:00)
--- NOTE | 2017-02-07 03:10 | PHYS DOC ---
Past Medical History Past Medical History: Anxiety, COPD, Diabetes-Type II, High Cholesterol, Hypertension, Hyperthyroid, MS Additional Past Medical Histor: EMPHYSEMA Past Surgical History: Other Additional Past Surgical Histo: left knee replacementx2, spinal fusion, right knee arthroplasty, CTR Alcohol Use: Rarely Drug Use: None Adult General Chief Complaint Chief Complaint: SHORTNESS OF BREATH HPI HPI 62-year-old female who states she's had significant worsening of her shortness of breath with history of COPD. She states she's been using breathing treatments at home but has not had any relief. Patient is normally requiring 3 L of oxygen at home. She is saturating at 97% on her usual 3 L at this time. She states she may have had mild chest pain earlier today but denies any current chest pain. She does state she has had a mild cough. Review of Systems Review of Systems Constitutional: Denies fever or chills [] Eyes: Denies change in visual acuity, redness, or eye pain [] HENT: Denies nasal congestion or sore throat [] Respiratory: Has cough, has shortness of breath [] Cardiovascular: No additional information not addressed in HPI [] GI: Denies abdominal pain, nausea, vomiting, bloody stools or diarrhea [] : Denies dysuria or hematuria [] Musculoskeletal: Denies back pain or joint pain [] Integument: Denies rash or skin lesions [] Neurologic: Denies headache, focal weakness or sensory changes [] Endocrine: Denies polyuria or polydipsia [] Current Medications Current Medications Current Medications Medications (Trade) Dose Ordered Sig/Juan Start Time Stop Time Status Last Admin Dose Admin Albuterol/ Ipratropium (Duoneb) 3 ml RTQID 02/07/17 08:00 02/08/17 07:59 Methylprednisolone Sodium Succinate (Solu-Medrol 125mg Vial) 125 mg 1X ONCE 02/07/17 03:00 02/07/17 03:01 DC 02/07/17 03:19 125 MG Ondansetron HCl (Zofran) 4 mg PRN Q8HRS PRN 02/07/17 03:15 02/08/17 03:14 Allergies Allergies Allergies Coded Allergies Type Severity Reaction Last Updated Verified levofloxacin Allergy Intermediate Hives 09/21/15 Yes Physical Exam Physical Exam Constitutional: Well developed, well nourished, no acute distress, non-toxic appearance. [] HENT: Normocephalic, atraumatic, bilateral external ears normal, oropharynx moist, no oral exudates, nose normal. [] Eyes: PERRLA, EOMI, conjunctiva normal, no discharge. [] Neck: Normal range of motion, no tenderness, supple, no stridor. [] Cardiovascular:Heart rate regular rhythm, no murmur [] Lungs & Thorax: Bilateral breath sounds clear to auscultation [] Abdomen: Bowel sounds normal, soft, no tenderness, no masses, no pulsatile masses. [] Skin: Warm, dry, no erythema, no rash. [] Back: No tenderness, no CVA tenderness. [] Extremities: No tenderness, no cyanosis, no clubbing, ROM intact, no edema. [] Neurologic: Alert and oriented X 3, normal motor function, normal sensory function, no focal deficits noted. [] Psychologic: Affect normal, judgement normal, mood normal. [] Current Patient Data Vital Signs Vital Signs Date Time Temp Pulse Resp B/P Pulse Ox O2 Delivery O2 Flow Rate FiO2 02/07/17 02:55 97 Nasal Cannula 3.0 02/07/17 02:54 98.6 117 22 135/77 98.6 Lab Values Laboratory Tests Test 02/07/17 02:51 02/07/17 03:40 White Blood Count 4.8x10^3/uL (4.0-11.0) Red Blood Count 3.75x10^6/uL (3.50-5.40) Hemoglobin 11.5g/dL (12.0-15.5) L Hematocrit 35.7% (36.0-47.0) L Mean Corpuscular Volume 95fL (79-100) Mean Corpuscular Hemoglobin 31pg (25-35) Mean Corpuscular Hemoglobin Concent 32g/dL (31-37) Red Cell Distribution Width 13.6% (11.5-14.5) Platelet Count 206x10^3/uL (140-400) Neutrophils (%) (Auto) 66% (31-73) Lymphocytes (%) (Auto) 21% (24-48) L Monocytes (%) (Auto) 11% (0-9) H Eosinophils (%) (Auto) 0% (0-3) Basophils (%) (Auto) 1% (0-3) Neutrophils # (Auto) 3.2x10^3uL (1.8-7.7) Lymphocytes # (Auto) 1.0x10^3/uL (1.0-4.8) Monocytes # (Auto) 0.5x10^3/uL (0.0-1.1) Eosinophils # (Auto) 0.0x10^3/uL (0.0-0.7) Basophils # (Auto) 0.0x10^3/uL (0.0-0.2) Sodium Level 143mmol/L (136-145) Potassium Level 4.2mmol/L (3.5-5.1) Chloride Level 104mmol/L (98-107) Carbon Dioxide Level 30mmol/L (21-32) Anion Gap 9 (6-14) Blood Urea Nitrogen 19mg/dL (7-20) Creatinine 1.0mg/dL (0.6-1.0) Estimated GFR (Cockcroft-Gault) 56.0 Glucose Level 163mg/dL (70-99) H Calcium Level 8.9mg/dL (8.5-10.1) Troponin I Quantitative < 0.017ng/mL (0.000-0.055) ZT-[id number]-Type Natriuretic Peptide 189pg/mL (0-124) H Laboratory Tests 02/07/17 02:51 Laboratory Tests 02/07/17 03:40 EKG EKG EKG as interpreted by md shows a sinus tachycardia with a rate of 108 bpm. There are no obvious ischemic findings on this EKG. This EKG does not meet STEMI criteria. Radiology/Procedures Radiology/Procedures One view of the chest as interpreted by md does not reveal an acute cardiopulmonary process. Course & Med Decision Making Course & Med Decision Making Pertinent Labs and Imaging studies reviewed. (See chart for details) This 62-year-old female who is likely having a COPD exacerbation was given a breathing treatment and steroids. Patient is satting appropriately on her usual 3 L NC. Her laboratory workup was essentially unremarkable. Her EKG and chest film were also unrevealing. I discussed the need to admit the patient with the hospitalist, Dr. Waldrop, who agreed to accept for further evaluation and consultation with pulmonology was also placed. She was admitted without incident. Dragon Disclaimer Dragon Disclaimer This electronic medical record was generated, in whole or in part, using a voice recognition dictation system. Departure Departure Impression: Primary Impression: COPD exacerbation Disposition: ADMITTED INPATIENT Admitting Physician: Teo Waldrop Condition: STABLE Referrals: DMITRI COLMENARES MD (PCP) LEW CELAYA DO Feb 07, 2017 03:10
[2017-02-07] MEDS ORDERED: ONDANSETRON PF 4 MG/2 ML VIAL. IV PRN (03:15)
[2017-02-07 03:17] LABS: BASO % 1 % (0-3); EOS % 0 % (0-3); HEMATOCRIT 35.7 % (36.0-47.0); HEMOGLOBIN 11.5 g/dL (12.0-15.5); LYMPH % 21 % (24-48); MEAN CORPUSCULAR HEMOGLOBIN 31 pg (25-35); MEAN CORPUSCULAR HGB CONC 32 g/dL (31-37); MEAN CORPUSCULAR VOLUME 95 fL (79-100); MONO % 11 % (0-9); NEUT % 66 % (31-73); PLATELET COUNT 206 x10^3/uL (140-400); RED BLOOD COUNT 3.75 x10^6/uL (3.50-5.40); RED CELL DISTRIBUTION WIDTH 13.6 % (11.5-14.5); WHITE BLOOD COUNT 4.8 x10^3/uL (4.0-11.0)
[2017-02-07 04:05] LABS: CALCIUM 8.9 mg/dL (8.5-10.1); POTASSIUM 4.2 mmol/L (3.5-5.1)
--- NOTE | 2017-02-07 04:33 | ACF ---
Admission Forms Criteria COPD Clinical Indications for Admission to Inpatient Care (Place 'X' for any and all applicable criteria): Admission is indicated for ANY ONE of the following (1)(2)(3): [X]I. Acute exacerbation by high-risk comorbidity (e.g., pneumonia, dysrhythmia, heart failure, pleural effusion, pneumothorax) or severe underlying COPD (e.g., steroid dependent) [ ]II. Inpatient admission required rather than observation care (see Chronic Obstructive Pulmonary Disease: Observation Care) because of ANY ONE of the following: [ ]a) New or pre-existing signs or symptoms of COPD (eg, dyspnea or Tachypnea at rest or with minimal activity) that persist despite outpatient and observation care treatment [ ]b) New-onset hypoxemia (room air SaO2 less than 90%, PO2 less than 60 mm Hg (8.0 kPa)) that persists despite outpatient and observation care treatment [ ]c) Worsening of pre-existing hypoxemia (eg, new or increased requirement for supplemental oxygen to maintain oxygenation at baseline level) that persists despite outpatient and observation care treatment, with oxygen treatment needs performable only in acute inpatient setting [ ]d) Hypercarbia (PCO2 greater than 40 mm Hg (5.3 kPa))-induced respiratory acidosis (pH less than 7.35) that persists despite outpatient and observation care treatment [ ]e) Supplemental oxygen or respiratory treatments for over 24 hours that are performable only in acute inpatient setting [ ]f) Chest tube placement with active evacuation (e.g., suction, drainage) (5) [ ]g) Other condition, treatment or monitoring requiring inpatient admission [ ]III. Planned invasive surgical or diagnostic procedures requiring acute- care hospitalization [ ]IV. Acute respiratory failure (e.g., uncompensated hypercarbia, severe hypoxemia) [ ]V. Severe comorbid condition (e.g., severe steroid myopathy, acute vertebral fracture) that has acutely worsened pulmonary function [ ]. Confusion state, lethargy, obtundation, stupor or coma Extended stay beyond goal length of stay may be needed for (31)(32): [ ]a ) Respiratory Failure. [ ]b) Severe or persisting hypoxemia or hypercarbia [ ]c) Severe or persistent dyspnea [ ]d) Comorbidities (e.g. chronic heart failure, atrial fibrillation with rapid response, pneumonia) [ ]e) Malnutrition The original [facility] content created by [facility] has been revised. The portions of the content which have been revised are identified through the use of italic text or in bold, and [facility] has neither reviewed nor approved the modified material. All other unmodified content is copyright [facility]. Please see references footnoted in the original [facility] edition 2016 Admission Criteria Met?: Yes CAYETANO SHIELDS Feb 07, 2017 04:33
[2017-02-07 06:09] VITALS: BP 140/83
--- NOTE | 2017-02-07 06:50 | EKG ---
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
--- NOTE | 2017-02-07 07:15 | RAD ---
Portable chest, 02/07/2017: History: Shortness of breath, COPD Comparison is made to a study from 02/05/2017. The heart size and pulmonary vascularity are normal. There are probable emphysematous changes in the upper lobes. No pulmonary infiltrates are seen. There is no evidence of pleural fluid. IMPRESSION: No acute cardiopulmonary is detected.
[2017-02-07] MEDS ORDERED: IPRATRPIUM/ALBUTEROL 0.5/2.5MG 3 ML NEBU. NEB SCH (08:00)
--- NOTE | 2017-02-07 09:57 | PDOC ---
OBJECTIVE Vital Signs Vital Signs Date Time Temp Pulse Resp B/P Pulse Ox O2 Delivery O2 Flow Rate FiO2 02/07/17 08:02 98 Nasal Cannula 3.0 02/07/17 06:09 97.7 99 22 140/83 97 Nasal Cannula 97.7 02/07/17 05:47 Nasal Cannula 3.0 02/07/17 05:30 100 22 151/76 97 Nasal Cannula 3 02/07/17 05:00 108 95 Nasal Cannula 3 02/07/17 04:30 102 20 172/88 97 Nasal Cannula 3 02/07/17 04:00 104 22 141/86 97 Nasal Cannula 3 02/07/17 03:30 108 20 167/90 97 Nasal Cannula 3 02/07/17 03:00 108 24 135/77 97 Nasal Cannula 3 02/07/17 02:55 97 Nasal Cannula 3.0 02/07/17 02:54 98.6 117 22 135/77 97 Nasal Cannula 3 98.6 ASSESSMENT/PLAN Assessment/Plan [id number] H&P dictated Problems: COMMENT Lab Laboratory Tests Test 02/07/17 02:51 02/07/17 03:40 02/07/17 08:12 White Blood Count 4.8x10^3/uL (4.0-11.0) Red Blood Count 3.75x10^6/uL (3.50-5.40) Hemoglobin 11.5g/dL (12.0-15.5) Hematocrit 35.7% (36.0-47.0) Mean Corpuscular Volume 95fL (79-100) Mean Corpuscular Hemoglobin 31pg (25-35) Mean Corpuscular Hemoglobin Concent 32g/dL (31-37) Red Cell Distribution Width 13.6% (11.5-14.5) Platelet Count 206x10^3/uL (140-400) Neutrophils (%) (Auto) 66% (31-73) Lymphocytes (%) (Auto) 21% (24-48) Monocytes (%) (Auto) 11% (0-9) Eosinophils (%) (Auto) 0% (0-3) Basophils (%) (Auto) 1% (0-3) Neutrophils # (Auto) 3.2x10^3uL (1.8-7.7) Lymphocytes # (Auto) 1.0x10^3/uL (1.0-4.8) Monocytes # (Auto) 0.5x10^3/uL (0.0-1.1) Eosinophils # (Auto) 0.0x10^3/uL (0.0-0.7) Basophils # (Auto) 0.0x10^3/uL (0.0-0.2) Sodium Level 143mmol/L (136-145) Potassium Level 4.2mmol/L (3.5-5.1) Chloride Level 104mmol/L (98-107) Carbon Dioxide Level 30mmol/L (21-32) Anion Gap 9 (6-14) Blood Urea Nitrogen 19mg/dL (7-20) Creatinine 1.0mg/dL (0.6-1.0) Estimated GFR (Cockcroft-Gault) 56.0 Glucose Level 163mg/dL (70-99) Calcium Level 8.9mg/dL (8.5-10.1) Troponin I Quantitative < 0.017ng/mL (0.000-0.055) YW-Xko-W-Type Natriuretic Peptide 189pg/mL (0-124) Glucose (Fingerstick) 254mg/dL (70-99) AURA TEJEDA MD Feb 07, 2017 09:56
[2017-02-07] MEDS ORDERED: HYDROCODONE/APAP 5/325MG TABLET. PO PRN (10:00)
[2017-02-07] MEDS ORDERED: CYCLOBENZAPRINE 10 MG TABLET. PO PRN (10:15)
[2017-02-07 10:44] VITALS: BP 141/94
--- NOTE | 2017-02-07 11:18 | PDOC ---
PULMONARY PROGRESS NOTES Vitals Vital Signs Date Time Temp Pulse Resp B/P Pulse Ox O2 Delivery O2 Flow Rate FiO2 02/07/17 10:44 97.7 91 20 141/94 99 Nasal Cannula 3.0 97.7 General: Alert, Oriented X4, No acute distress HEENT: Other Lungs: Clear Cardiovascular: S1, S2 Abdomen: Soft, Non-tender Extremities: No Edema Labs Laboratory Tests Test 02/07/17 02:51 02/07/17 03:40 02/07/17 08:12 White Blood Count 4.8x10^3/uL (4.0-11.0) Red Blood Count 3.75x10^6/uL (3.50-5.40) Hemoglobin 11.5g/dL (12.0-15.5) Hematocrit 35.7% (36.0-47.0) Mean Corpuscular Volume 95fL (79-100) Mean Corpuscular Hemoglobin 31pg (25-35) Mean Corpuscular Hemoglobin Concent 32g/dL (31-37) Red Cell Distribution Width 13.6% (11.5-14.5) Platelet Count 206x10^3/uL (140-400) Neutrophils (%) (Auto) 66% (31-73) Lymphocytes (%) (Auto) 21% (24-48) Monocytes (%) (Auto) 11% (0-9) Eosinophils (%) (Auto) 0% (0-3) Basophils (%) (Auto) 1% (0-3) Neutrophils # (Auto) 3.2x10^3uL (1.8-7.7) Lymphocytes # (Auto) 1.0x10^3/uL (1.0-4.8) Monocytes # (Auto) 0.5x10^3/uL (0.0-1.1) Eosinophils # (Auto) 0.0x10^3/uL (0.0-0.7) Basophils # (Auto) 0.0x10^3/uL (0.0-0.2) Sodium Level 143mmol/L (136-145) Potassium Level 4.2mmol/L (3.5-5.1) Chloride Level 104mmol/L (98-107) Carbon Dioxide Level 30mmol/L (21-32) Anion Gap 9 (6-14) Blood Urea Nitrogen 19mg/dL (7-20) Creatinine 1.0mg/dL (0.6-1.0) Estimated GFR (Cockcroft-Gault) 56.0 Glucose Level 163mg/dL (70-99) Calcium Level 8.9mg/dL (8.5-10.1) Troponin I Quantitative < 0.017ng/mL (0.000-0.055) QN-Wco-Z-Type Natriuretic Peptide 189pg/mL (0-124) Glucose (Fingerstick) 254mg/dL (70-99) Laboratory Tests Test 02/07/17 02:51 02/07/17 03:40 02/07/17 08:12 White Blood Count 4.8x10^3/uL (4.0-11.0) Red Blood Count 3.75x10^6/uL (3.50-5.40) Hemoglobin 11.5g/dL (12.0-15.5) Hematocrit 35.7% (36.0-47.0) Mean Corpuscular Volume 95fL (79-100) Mean Corpuscular Hemoglobin 31pg (25-35) Mean Corpuscular Hemoglobin Concent 32g/dL (31-37) Red Cell Distribution Width 13.6% (11.5-14.5) Platelet Count 206x10^3/uL (140-400) Neutrophils (%) (Auto) 66% (31-73) Lymphocytes (%) (Auto) 21% (24-48) Monocytes (%) (Auto) 11% (0-9) Eosinophils (%) (Auto) 0% (0-3) Basophils (%) (Auto) 1% (0-3) Neutrophils # (Auto) 3.2x10^3uL (1.8-7.7) Lymphocytes # (Auto) 1.0x10^3/uL (1.0-4.8) Monocytes # (Auto) 0.5x10^3/uL (0.0-1.1) Eosinophils # (Auto) 0.0x10^3/uL (0.0-0.7) Basophils # (Auto) 0.0x10^3/uL (0.0-0.2) Sodium Level 143mmol/L (136-145) Potassium Level 4.2mmol/L (3.5-5.1) Chloride Level 104mmol/L (98-107) Carbon Dioxide Level 30mmol/L (21-32) Anion Gap 9 (6-14) Blood Urea Nitrogen 19mg/dL (7-20) Creatinine 1.0mg/dL (0.6-1.0) Estimated GFR (Cockcroft-Gault) 56.0 Glucose Level 163mg/dL (70-99) Calcium Level 8.9mg/dL (8.5-10.1) Troponin I Quantitative < 0.017ng/mL (0.000-0.055) ZE-Gkf-C-Type Natriuretic Peptide 189pg/mL (0-124) Glucose (Fingerstick) 254mg/dL (70-99) Medications Active Scripts Medications Dose Route/Sig Days Date Category Dose Instructions Cyclobenzaprine Hcl 5 Mg Tablet 1 Tab PO TID PRN 01/14/17 Rx Prednisone 10 Mg Tablet 10 Mg PO UD 12/12/16 Rx Take 3 tablets by mouth twice a day for 3 days, then take 2 tablets by mouth twice a day for 3 days, then take 1 tablet by mouth twice a day for 3 days, then take 1 tablet by mouth daily x 3 days, then stop. Cefpodoxime Proxetil 200 Mg Tablet 1 Tab PO BID 09/23/16 Reported Amlodipine Besylate 2.5 Mg Tablet 2.5 Mg PO DAILY 09/19/16 Reported Atorvastatin Calcium 20 Mg Tablet 20 Mg PO DAILY 09/19/16 Reported Isosorbide Mononitrate Er (Isosorbide Mononitrate) 30 Mg Tab.er.24h 30 Mg PO DAILY 09/19/16 Reported Levothyroxine Sodium 88 Mcg Tablet 88 Mcg PO DAILY06 09/19/16 Reported Ventolin Hfa Inhaler (Albuterol Sulfate) 18 Gm Hfa.aer.ad 2 Puff INH PRN QID PRN 09/19/16 Reported Bupropion Xl (Bupropion Hcl) 300 Mg Tab.er.24h 300 Mg PO DAILY 09/19/16 Reported Breo Ellipta 100-25 Mcg Inh (Fluticasone/Vilanterol) 1 Each Aer.pow.ba 1 Puff IH DAILY 09/19/16 Reported Hydrocodone-Apap 5-325 (Hydrocodone Bit/Acetaminophen) 1 Each Tablet 1 Tab PO PRN Q8HRS PRN 09/19/16 Reported Carafate (Sucralfate) 1 Gm Tablet 1 Gm PO QIDACHS 30 06/26/16 Rx Nexium Capsule (Esomeprazole Magnesium) 40 Mg Capsule.dr 1 Cap PO DAILY 06/24/16 Reported Metoprolol Succinate ( Xl ) (Metoprolol Succinate) 25 Mg Tab.er.24h 2 Tab PO DAILY 06/24/16 Reported Aspir 81 (Aspirin) 81 Mg Tablet.dr 1 Tab PO DAILY 11/22/15 Reported Effient (Prasugrel Hcl) 10 Mg Tablet 10 Mg PO DAILYWBKFT 11/22/15 Rx Xanax (Alprazolam) 0.25 Mg Tablet 0.25 Mg PO PRN TID PRN 11/19/15 Reported Valtrex (Valacyclovir Hcl) 500 Mg Tablet 500 Mg PO BID 11/19/15 Reported Fenofibrate (Fenofibrate Nanocrystallized) 145 Mg Tablet 160 Mg PO DAILY 06/19/14 Reported Citalopram Hbr (Citalopram Hydrobromide) 40 Mg Tablet 40 Mg PO HS 03/23/14 Reported Metformin Hcl 1,000 Mg Tablet 1,000 Mg PO BID 03/20/14 Reported Duoneb 0.5 Mg-3 Mg/3 Ml Soln (Ipratropium/Albuterol Sulfate) 3 Ml Ampul.neb 3 Ml IH QID 03/20/14 Reported Impression . full note dictated AECOPD thanks SLICK BARNHART MD Feb 07, 2017 11:18
[2017-02-07] MEDS: IPRATRPIUM/ALBUTEROL 0.5/2.5MG 3 ML NEBU. NEB SCH ×3 (11:56→19:36)
[2017-02-07] MEDS: BUDESONIDE 0.5 MG/2 ML NEBU NEB SCH ×2 (12:00→19:36)
[2017-02-07] MEDS ORDERED: DEXTROSE 50% 25 GM / 50ML DISP.SYRIN. IV PRN (12:30)
[2017-02-07] MEDS: buPROPion XL 150 MG TAB.ER.24H PO SCH (13:24)
[2017-02-07] MEDS: DOXYCYCLINE HYCLATE 100 MG TABLET PO SCH ×2 (13:24→20:22)
[2017-02-07] MEDS: ATORVASTATIN CALCIUM 20 MG TABLET PO SCH (13:25)
[2017-02-07] MEDS: METFORMIN 1,000 MG TABLET PO SCH ×2 (13:25→18:17)
[2017-02-07] MEDS: LEVOTHYROXINE 88 MCG TABLET PO SCH (13:25)
[2017-02-07] MEDS: FENOFIBRATE,MICRONIZED 134 MG CAPSULE PO SCH (13:25)
[2017-02-07] MEDS: ASPIRIN ENTERIC COATED 81 MG TABLET.DR. PO SCH (13:26)
[2017-02-07] MEDS: SUCRALFATE 1 GM TABLET. PO SCH ×3 (13:26→20:22)
[2017-02-07] MEDS: ISOSORBIDE MONONITRATE ER 30 MG TAB.ER.24H PO SCH (13:27)
[2017-02-07] MEDS: AMLODIPINE BESYLATE 2.5 MG TABLET PO SCH (13:27)
[2017-02-07] MEDS: PREDNISONE 20 MG TABLET PO SCH (13:28)
[2017-02-07] MEDS: METOPROLOL SUCC 24HR ER 25 MG TAB.ER.24H. PO SCH (13:28)
[2017-02-07] MEDS: PANTOPRAZOLE 40 MG TABLET. PO SCH (13:29)
[2017-02-07] MEDS: INSULIN ASPART 300 UNITS/3 ML INSULN.PEN SQ SCH (13:36)
[2017-02-07 15:00] VITALS: BP 144/75
[2017-02-07] MEDS: PRASUGREL 10 MG TABLET. PO SCH (16:25)
[2017-02-07] MEDS: BENZOCAINE/MENTHOL LOZENGE. PO PRN (18:17)
[2017-02-07] MEDS: BENZONATATE 100 MG CAPSULE. PO SCH (18:18)
[2017-02-07 19:00] VITALS: BP 140/62
--- NOTE | 2017-02-07 19:35 | HP ---
ADMIT DATE: HISTORY OF PRESENT ILLNESS: The patient is a 62-year-old lady who presented to the Emergency Room due to increasing shortness of breath. She does have a previous history of COPD and has had exacerbations in the past. She stated that she had used her breathing treatments at home, but still felt short of breath and could not breathe. She does require oxygen at home, but has not been able to get her portable oxygen. She complains of increasing cough and wheezes and shortness of breath. PAST MEDICAL HISTORY: Significant for peripheral neuropathy, congestive heart failure, hyperlipidemia, hypertension, COPD, emphysema, previous history of PE and DVT, sleep apnea, irritable bowel syndrome, previous history of cholecystectomy, gastroesophageal reflux disease, hysterectomy, UTIs, osteoarthritis, carpal tunnel syndrome. She had a previous history of left knee replacement, bilateral carpal tunnel surgeries, diabetes, hypothyroidism, depression, anxiety. SOCIAL HISTORY: She used to smoke and quit smoking, but has 40-year exposure to cigarettes. She does not drink alcohol or use drugs. FAMILY HISTORY: Positive for cancer. REVIEW OF SYSTEMS: CONSTITUTIONAL: Denies fever or chills. EYES: Denies visual changes. HEENT: Denies nasal congestion or sore throat. RESPIRATORY: She does have cough, increasing shortness of breath. CARDIOVASCULAR: Denies chest pain, denies increasing swelling in the lower extremities. GASTROINTESTINAL: Denies abdominal pain, nausea, vomiting, diarrhea. GENITOURINARY: She does have stress incontinence. Denies dysuria or hematuria. MUSCULOSKELETAL: She does have arthritis and arthritis pain. DERMATOLOGY: Denies rashes. NEUROLOGY: Denies headache or sensory deficits. PHYSICAL EXAMINATION: GENERAL: She is alert and oriented, in no acute distress. HEENT: Normocephalic, atraumatic. Her eyes without discoloration or discharge. NECK: Supple. HEART: Regular rate and rhythm. LUNGS: With decreased breath sounds bilaterally and scattered wheezes. ABDOMEN: Soft, nontender. No organomegaly. EXTREMITIES: No edema, clubbing or cyanosis. NEUROLOGIC: No deficits. She is alert and oriented x 3. IMPRESSION: 1. Chronic obstructive pulmonary disease exacerbation with hypoxia. 2. Diabetes mellitus type 2. 3. Hypertension. 4. Hyperlipidemia. 5. Previous history of diastolic congestive heart failure. 6. Peripheral neuropathy. AURA TEJEDA MD DR: MONIQUE/paul JOB#: [id number] / [id number]
[2017-02-07] MEDS: CITALOPRAM 20 MG TABLET. PO SCH (20:22)
[2017-02-07] MEDS: ALPRAZOLAM 0.25 MG TABLET PO PRN (20:25)
[2017-02-07 23:02] VITALS: BP 114/61
[2017-02-08 03:00] VITALS: BP 129/72
[2017-02-08] MEDS: LEVOTHYROXINE 88 MCG TABLET PO SCH (05:28)
[2017-02-08] MEDS: SUCRALFATE 1 GM TABLET. PO SCH ×4 (05:28→20:14)
[2017-02-08] MEDS: PANTOPRAZOLE 40 MG TABLET. PO SCH (05:28)
[2017-02-08] MEDS ORDERED: LEVOFLOXACIN 250 MG TABLET. PO SCH (06:00)
--- NOTE | 2017-02-08 06:17 | CONS ---
DATE OF CONSULTATION: 02/07/2017 ATTENDING PHYSICIAN: Teo Waldrop MD REASON FOR CONSULTATION: The patient is seen in pulmonary consultation at the request of Dr. Waldrop for increasing shortness of air, hypoxemia. HISTORY OF PRESENT ILLNESS: The patient is a 62-year-old female with a history of chronic respiratory failure, normally wears oxygen at home, presents with acute increasing shortness of breath. She actually ran out of oxygen at home. She also had unilateral noise in her chest. The patient has been experiencing increasing shortness of breath over the last 2-3 days. She has a cough, mostly nonproductive. She denies fever, chills or night sweats. PAST MEDICAL HISTORY: Remarkable for chronic respiratory failure, utilizes oxygen at home; COPD, tobacco dependence, quit in 2002; anxiety; type 2 diabetes; dyslipidemia; hypertension; hypothyroidism; previous myocardial infarction. PAST SURGICAL HISTORY: Knee replacement, spinal fusion. ALLERGIES: LEVAQUIN. REVIEW OF SYSTEMS: As indicated above, otherwise a 10-point system was reviewed and negative. SOCIAL HISTORY: She quit tobacco in 2002. FAMILY HISTORY: No family history of lung disorders. PHYSICAL EXAMINATION: VITAL SIGNS: The patient was in no respiratory distress, on 3 liters of oxygen supplementation, saturation 97%. HEENT: Eyes, the sclerae were nonicteric. NECK: Jugular venous distention was not elevated. No lymphadenopathy. CHEST: Full expansion. LUNGS: She had rhonchi on the right and clear on the left. No wheezes. CARDIOVASCULAR: Regular rate and rhythm with S1, S2. No S3. ABDOMEN: Soft, nontender, nondistended. EXTREMITIES: No clubbing, cyanosis or edema. NEUROLOGIC: The patient was awake, alert, following commands. A detailed neuro exam was not performed. LABORATORY DATA: White count was normal. Hemoglobin and hematocrit were noted. Electrolytes were noted. Chest x-ray reviewed, no acute cardiopulmonary process. IMPRESSION: 1. Acute on chronic hypoxemic respiratory failure. 2. Acute exacerbation of chronic obstructive pulmonary disease. 3. Unilateral rhonchi, mostly heard on the right. 4. History of tobacco use. 5. Anxiety. PLAN: 1. Recommend to continue prednisone and doxycycline. 2. If no improvement in her unilateral rhonchi, she may require a bronchoscopy. 3. Continue home medications. 4. DVT and GI prophylaxis. I do appreciate the privilege in sharing in this patient's care. SLICK BARNHART MD DR: Alyson JOB#: [id number] / [id number]
[2017-02-08 06:41] LABS: CALCIUM 8.9 mg/dL (8.5-10.1); CREATININE 1.1 mg/dL (0.6-1.0); GFR 50.2; POTASSIUM 4.7 mmol/L (3.5-5.1)
[2017-02-08 07:00] VITALS: BP 149/96
[2017-02-08] MEDS: BUDESONIDE 0.5 MG/2 ML NEBU NEB SCH ×3 (07:29→20:38)
[2017-02-08] MEDS: IPRATRPIUM/ALBUTEROL 0.5/2.5MG 3 ML NEBU. NEB SCH ×4 (07:29→20:38)
[2017-02-08] MEDS: INSULIN ASPART 300 UNITS/3 ML INSULN.PEN SQ SCH ×3 (08:00→18:15)
[2017-02-08] MEDS: DOXYCYCLINE HYCLATE 100 MG TABLET PO SCH ×2 (08:33→20:14)
[2017-02-08] MEDS: ISOSORBIDE MONONITRATE ER 30 MG TAB.ER.24H PO SCH (08:34)
[2017-02-08] MEDS: ASPIRIN ENTERIC COATED 81 MG TABLET.DR. PO SCH (08:35)
[2017-02-08] MEDS: METOPROLOL SUCC 24HR ER 25 MG TAB.ER.24H. PO SCH (08:35)
[2017-02-08] MEDS: PREDNISONE 20 MG TABLET PO SCH (08:35)
[2017-02-08] MEDS: FENOFIBRATE,MICRONIZED 134 MG CAPSULE PO SCH (08:36)
[2017-02-08] MEDS: buPROPion XL 150 MG TAB.ER.24H PO SCH (08:36)
[2017-02-08] MEDS: PRASUGREL 10 MG TABLET. PO SCH (08:36)
[2017-02-08] MEDS: ATORVASTATIN CALCIUM 20 MG TABLET PO SCH (08:37)
[2017-02-08] MEDS: BENZONATATE 100 MG CAPSULE. PO SCH ×3 (08:37→20:14)
[2017-02-08] MEDS: METFORMIN 1,000 MG TABLET PO SCH ×2 (08:38→18:10)
[2017-02-08] MEDS: AMLODIPINE BESYLATE 2.5 MG TABLET PO SCH (08:38)
--- NOTE | 2017-02-08 09:17 | PDOC ---
SUBJECTIVE Subjective still wheezing and coughing OBJECTIVE Vital Signs Vital Signs Date Time Temp Pulse Resp B/P Pulse Ox O2 Delivery O2 Flow Rate FiO2 02/08/17 08:38 93 149/96 02/08/17 08:35 93 149/96 02/08/17 08:34 77 144/96 02/08/17 08:00 Nasal Cannula 3.0 02/08/17 07:29 95 Nasal Cannula 3.0 02/08/17 07:00 97.7 93 19 149/96 93 Room Air 3.0 97.7 02/08/17 03:00 97.5 77 19 129/72 98 Room Air 3.0 97.5 02/07/17 23:02 98.1 91 20 114/61 98 Nasal Cannula 3.0 98.1 02/07/17 20:00 Nasal Cannula 3.0 02/07/17 19:35 96 Nasal Cannula 3.0 02/07/17 19:00 99.0 110 22 140/62 95 Nasal Cannula 3.0 99.0 02/07/17 16:01 Nasal Cannula 3.0 02/07/17 15:00 98.8 89 20 144/75 97 Nasal Cannula 3.0 98.8 02/07/17 13:28 91 141/94 02/07/17 13:27 91 141/94 02/07/17 13:27 91 141/94 02/07/17 11:56 98 Nasal Cannula 3.0 02/07/17 10:44 97.7 91 20 141/94 99 Nasal Cannula 3.0 97.7 I & O Intake and Output 02/08/17 07:00 Intake Total 700 ml Balance 700 ml Intake Oral 700 ml # Voids 4 # Bowel Movements 1 PHYSICAL EXAM Physical Exam still with significant wheezes bilaterally heart RRR abd soft ext no edema ASSESSMENT/PLAN Assessment/Plan 1. Chronic obstructive pulmonary disease exacerbation with hypoxia. continue steroids and bronchodilators , Abx 2. Diabetes mellitus type 2. 3. Hypertension. 4. Hyperlipidemia. 5. Previous history of diastolic congestive heart failure. 6. Peripheral neuropathy. Problems: COMMENT Lab Laboratory Tests Test 02/07/17 16:02 02/07/17 20:48 02/08/17 05:55 02/08/17 08:17 Glucose (Fingerstick) 197mg/dL (70-99) 246mg/dL (70-99) 144mg/dL (70-99) Sodium Level 140mmol/L (136-145) Potassium Level 4.7mmol/L (3.5-5.1) Chloride Level 102mmol/L (98-107) Carbon Dioxide Level 31mmol/L (21-32) Anion Gap 7 (6-14) Blood Urea Nitrogen 26mg/dL (7-20) Creatinine 1.1mg/dL (0.6-1.0) Estimated GFR (Cockcroft-Gault) 50.2 Glucose Level 153mg/dL (70-99) Calcium Level 8.9mg/dL (8.5-10.1) AURA TEJEDA MD Feb 08, 2017 09:17
[2017-02-08 11:00] VITALS: BP 131/72
[2017-02-08] MEDS: BENZOCAINE/MENTHOL LOZENGE. PO PRN (11:05)
--- NOTE | 2017-02-08 11:09 | PDOC ---
PULMONARY PROGRESS NOTES Subjective has sob, cough, wheezing, runny nose. no pain. on 20 3 lpm cont at home Vitals Vital Signs Date Time Temp Pulse Resp B/P Pulse Ox O2 Delivery O2 Flow Rate FiO2 02/08/17 08:38 93 149/96 02/08/17 08:00 Nasal Cannula 3.0 02/08/17 07:29 95 02/08/17 07:00 97.7 19 97.7 Comments ros as mentioned as above other sys otherwise eng General: Alert, Oriented X4, No acute distress HEENT: Other Lungs: Wheezing Cardiovascular: S1, S2 Abdomen: Soft, Non-tender Neuro Exam: Alert Extremities: No Edema Skin: Warm Labs Laboratory Tests Test 02/07/17 02:51 02/07/17 03:40 02/07/17 08:12 02/07/17 16:02 White Blood Count 4.8x10^3/uL (4.0-11.0) Red Blood Count 3.75x10^6/uL (3.50-5.40) Hemoglobin 11.5g/dL (12.0-15.5) Hematocrit 35.7% (36.0-47.0) Mean Corpuscular Volume 95fL (79-100) Mean Corpuscular Hemoglobin 31pg (25-35) Mean Corpuscular Hemoglobin Concent 32g/dL (31-37) Red Cell Distribution Width 13.6% (11.5-14.5) Platelet Count 206x10^3/uL (140-400) Neutrophils (%) (Auto) 66% (31-73) Lymphocytes (%) (Auto) 21% (24-48) Monocytes (%) (Auto) 11% (0-9) Eosinophils (%) (Auto) 0% (0-3) Basophils (%) (Auto) 1% (0-3) Neutrophils # (Auto) 3.2x10^3uL (1.8-7.7) Lymphocytes # (Auto) 1.0x10^3/uL (1.0-4.8) Monocytes # (Auto) 0.5x10^3/uL (0.0-1.1) Eosinophils # (Auto) 0.0x10^3/uL (0.0-0.7) Basophils # (Auto) 0.0x10^3/uL (0.0-0.2) Sodium Level 143mmol/L (136-145) Potassium Level 4.2mmol/L (3.5-5.1) Chloride Level 104mmol/L (98-107) Carbon Dioxide Level 30mmol/L (21-32) Anion Gap 9 (6-14) Blood Urea Nitrogen 19mg/dL (7-20) Creatinine 1.0mg/dL (0.6-1.0) Estimated GFR (Cockcroft-Gault) 56.0 Glucose Level 163mg/dL (70-99) Calcium Level 8.9mg/dL (8.5-10.1) Troponin I Quantitative < 0.017ng/mL (0.000-0.055) SL-Rig-V-Type Natriuretic Peptide 189pg/mL (0-124) Glucose (Fingerstick) 254mg/dL (70-99) 197mg/dL (70-99) Test 02/07/17 20:48 02/08/17 05:55 02/08/17 08:17 Glucose (Fingerstick) 246mg/dL (70-99) 144mg/dL (70-99) Sodium Level 140mmol/L (136-145) Potassium Level 4.7mmol/L (3.5-5.1) Chloride Level 102mmol/L (98-107) Carbon Dioxide Level 31mmol/L (21-32) Anion Gap 7 (6-14) Blood Urea Nitrogen 26mg/dL (7-20) Creatinine 1.1mg/dL (0.6-1.0) Estimated GFR (Cockcroft-Gault) 50.2 Glucose Level 153mg/dL (70-99) Calcium Level 8.9mg/dL (8.5-10.1) Laboratory Tests Test 02/07/17 16:02 02/07/17 20:48 02/08/17 05:55 02/08/17 08:17 Glucose (Fingerstick) 197mg/dL (70-99) 246mg/dL (70-99) 144mg/dL (70-99) Sodium Level 140mmol/L (136-145) Potassium Level 4.7mmol/L (3.5-5.1) Chloride Level 102mmol/L (98-107) Carbon Dioxide Level 31mmol/L (21-32) Anion Gap 7 (6-14) Blood Urea Nitrogen 26mg/dL (7-20) Creatinine 1.1mg/dL (0.6-1.0) Estimated GFR (Cockcroft-Gault) 50.2 Glucose Level 153mg/dL (70-99) Calcium Level 8.9mg/dL (8.5-10.1) Medications Active Scripts Medications Dose Route/Sig Days Date Category Dose Instructions Cyclobenzaprine Hcl 5 Mg Tablet 1 Tab PO TID PRN 01/14/17 Rx Prednisone 10 Mg Tablet 10 Mg PO UD 12/12/16 Rx Take 3 tablets by mouth twice a day for 3 days, then take 2 tablets by mouth twice a day for 3 days, then take 1 tablet by mouth twice a day for 3 days, then take 1 tablet by mouth daily x 3 days, then stop. Cefpodoxime Proxetil 200 Mg Tablet 1 Tab PO BID 09/23/16 Reported Amlodipine Besylate 2.5 Mg Tablet 2.5 Mg PO DAILY 09/19/16 Reported Atorvastatin Calcium 20 Mg Tablet 20 Mg PO DAILY 09/19/16 Reported Isosorbide Mononitrate Er (Isosorbide Mononitrate) 30 Mg Tab.er.24h 30 Mg PO DAILY 09/19/16 Reported Levothyroxine Sodium 88 Mcg Tablet 88 Mcg PO DAILY06 09/19/16 Reported Ventolin Hfa Inhaler (Albuterol Sulfate) 18 Gm Hfa.aer.ad 2 Puff INH PRN QID PRN 09/19/16 Reported Bupropion Xl (Bupropion Hcl) 300 Mg Tab.er.24h 300 Mg PO DAILY 09/19/16 Reported Breo Ellipta 100-25 Mcg Inh (Fluticasone/Vilanterol) 1 Each Aer.pow.ba 1 Puff IH DAILY 09/19/16 Reported Hydrocodone-Apap 5-325 (Hydrocodone Bit/Acetaminophen) 1 Each Tablet 1 Tab PO PRN Q8HRS PRN 09/19/16 Reported Carafate (Sucralfate) 1 Gm Tablet 1 Gm PO QIDACHS 30 06/26/16 Rx Nexium Capsule (Esomeprazole Magnesium) 40 Mg Capsule.dr 1 Cap PO DAILY 06/24/16 Reported Metoprolol Succinate ( Xl ) (Metoprolol Succinate) 25 Mg Tab.er.24h 2 Tab PO DAILY 06/24/16 Reported Aspir 81 (Aspirin) 81 Mg Tablet.dr 1 Tab PO DAILY 11/22/15 Reported Effient (Prasugrel Hcl) 10 Mg Tablet 10 Mg PO DAILYWBKFT 11/22/15 Rx Xanax (Alprazolam) 0.25 Mg Tablet 0.25 Mg PO PRN TID PRN 11/19/15 Reported Valtrex (Valacyclovir Hcl) 500 Mg Tablet 500 Mg PO BID 11/19/15 Reported Fenofibrate (Fenofibrate Nanocrystallized) 145 Mg Tablet 160 Mg PO DAILY 06/19/14 Reported Citalopram Hbr (Citalopram Hydrobromide) 40 Mg Tablet 40 Mg PO HS 03/23/14 Reported Metformin Hcl 1,000 Mg Tablet 1,000 Mg PO BID 03/20/14 Reported Duoneb 0.5 Mg-3 Mg/3 Ml Soln (Ipratropium/Albuterol Sulfate) 3 Ml Ampul.neb 3 Ml IH QID 03/20/14 Reported Comments cxr reviewed, no infilt Impression . IMPRESSION: 1. Acute on chronic hypoxemic respiratory failure. 2. Acute exacerbation of chronic obstructive pulmonary disease. 3. acute bronchitis 4. History of tobacco use. 5. Anxiety. Plan . PLAN: 1. doxycycline. 2. lose wt 3. change prednisone to solumedrol 4. DVT and GI prophylaxis. 5. 02 titration 6. bronchodilator 7. add ics 8. add singulair discussed w pt AYANA WORKMAN MD Feb 08, 2017 11:09
[2017-02-08] MEDS: ALPRAZOLAM 0.25 MG TABLET PO PRN (14:19)
[2017-02-08 15:00] VITALS: BP 134/72
[2017-02-08] MEDS: ONDANSETRON PF 4 MG/2 ML VIAL. IV PRN (16:44)
[2017-02-08 19:00] VITALS: BP 145/72
[2017-02-08] MEDS: CITALOPRAM 20 MG TABLET. PO SCH (20:14)
[2017-02-08] MEDS: methylPREDNISolone SOD SUCC PF 40 MG/ML VIAL. IV SCH (20:15)
[2017-02-08] MEDS: MONTELUKAST SODIUM 10 MG TABLET. PO SCH (20:15)
[2017-02-08 23:00] VITALS: BP 146/62
[2017-02-09 03:00] VITALS: BP 149/66
[2017-02-09] MEDS: IPRATRPIUM/ALBUTEROL 0.5/2.5MG 3 ML NEBU. NEB SCH ×4 (06:14→21:09)
[2017-02-09] MEDS: BUDESONIDE 0.5 MG/2 ML NEBU NEB SCH ×2 (06:14→21:09)
[2017-02-09] MEDS: PANTOPRAZOLE 40 MG TABLET. PO SCH (06:26)
[2017-02-09] MEDS: SUCRALFATE 1 GM TABLET. PO SCH ×4 (06:26→20:10)
[2017-02-09] MEDS: LEVOTHYROXINE 88 MCG TABLET PO SCH (06:26)
[2017-02-09 07:00] VITALS: BP 135/54
[2017-02-09] MEDS: ISOSORBIDE MONONITRATE ER 30 MG TAB.ER.24H PO SCH (09:56)
[2017-02-09] MEDS: ATORVASTATIN CALCIUM 20 MG TABLET PO SCH (09:56)
[2017-02-09] MEDS: ASPIRIN ENTERIC COATED 81 MG TABLET.DR. PO SCH (09:57)
[2017-02-09] MEDS: PRASUGREL 10 MG TABLET. PO SCH (09:57)
[2017-02-09] MEDS: METFORMIN 1,000 MG TABLET PO SCH ×2 (09:57→16:31)
[2017-02-09] MEDS: FENOFIBRATE,MICRONIZED 134 MG CAPSULE PO SCH (09:57)
[2017-02-09] MEDS: AMLODIPINE BESYLATE 2.5 MG TABLET PO SCH (09:57)
[2017-02-09] MEDS: METOPROLOL SUCC 24HR ER 25 MG TAB.ER.24H. PO SCH (09:58)
[2017-02-09] MEDS: buPROPion XL 150 MG TAB.ER.24H PO SCH (09:58)
[2017-02-09] MEDS: methylPREDNISolone SOD SUCC PF 40 MG/ML VIAL. IV SCH ×2 (09:58→20:10)
[2017-02-09] MEDS: DOXYCYCLINE HYCLATE 100 MG TABLET PO SCH ×2 (09:58→20:11)
[2017-02-09] MEDS: BENZONATATE 100 MG CAPSULE. PO SCH ×3 (09:59→20:11)
[2017-02-09] MEDS: INSULIN ASPART 300 UNITS/3 ML INSULN.PEN SQ SCH ×3 (10:03→17:28)
[2017-02-09 11:00] VITALS: BP 162/74
--- NOTE | 2017-02-09 11:08 | PDOC ---
PULMONARY PROGRESS NOTES Subjective has sob, cough, wheezing, runny nose. no pain. on 20 3 lpm cont at home Vitals Vital Signs Date Time Temp Pulse Resp B/P Pulse Ox O2 Delivery O2 Flow Rate FiO2 02/09/17 09:58 76 135/54 02/09/17 08:00 Nasal Cannula 2.0 02/09/17 07:00 98.5 18 97 98.5 Comments ros as mentioned as above other sys otherwise eng General: Alert, Oriented X4, No acute distress HEENT: Other Lungs: Wheezing Cardiovascular: S1, S2 Abdomen: Soft, Non-tender Neuro Exam: Alert Extremities: No Edema Skin: Warm Labs Laboratory Tests Test 02/07/17 16:02 02/07/17 20:48 02/08/17 05:55 02/08/17 08:17 Glucose (Fingerstick) 197mg/dL (70-99) 246mg/dL (70-99) 144mg/dL (70-99) Sodium Level 140mmol/L (136-145) Potassium Level 4.7mmol/L (3.5-5.1) Chloride Level 102mmol/L (98-107) Carbon Dioxide Level 31mmol/L (21-32) Anion Gap 7 (6-14) Blood Urea Nitrogen 26mg/dL (7-20) Creatinine 1.1mg/dL (0.6-1.0) Estimated GFR (Cockcroft-Gault) 50.2 Glucose Level 153mg/dL (70-99) Calcium Level 8.9mg/dL (8.5-10.1) Test 02/08/17 11:49 02/08/17 17:05 02/08/17 20:14 02/09/17 08:15 Glucose (Fingerstick) 260mg/dL (70-99) 215mg/dL (70-99) 236mg/dL (70-99) 190mg/dL (70-99) Laboratory Tests Test 02/08/17 11:49 02/08/17 17:05 02/08/17 20:14 02/09/17 08:15 Glucose (Fingerstick) 260mg/dL (70-99) 215mg/dL (70-99) 236mg/dL (70-99) 190mg/dL (70-99) Medications Active Scripts Medications Dose Route/Sig Days Date Category Dose Instructions Cyclobenzaprine Hcl 5 Mg Tablet 1 Tab PO TID PRN 01/14/17 Rx Prednisone 10 Mg Tablet 10 Mg PO UD 12/12/16 Rx Take 3 tablets by mouth twice a day for 3 days, then take 2 tablets by mouth twice a day for 3 days, then take 1 tablet by mouth twice a day for 3 days, then take 1 tablet by mouth daily x 3 days, then stop. Cefpodoxime Proxetil 200 Mg Tablet 1 Tab PO BID 09/23/16 Reported Amlodipine Besylate 2.5 Mg Tablet 2.5 Mg PO DAILY 09/19/16 Reported Atorvastatin Calcium 20 Mg Tablet 20 Mg PO DAILY 09/19/16 Reported Isosorbide Mononitrate Er (Isosorbide Mononitrate) 30 Mg Tab.er.24h 30 Mg PO DAILY 09/19/16 Reported Levothyroxine Sodium 88 Mcg Tablet 88 Mcg PO DAILY06 09/19/16 Reported Ventolin Hfa Inhaler (Albuterol Sulfate) 18 Gm Hfa.aer.ad 2 Puff INH PRN QID PRN 09/19/16 Reported Bupropion Xl (Bupropion Hcl) 300 Mg Tab.er.24h 300 Mg PO DAILY 09/19/16 Reported Breo Ellipta 100-25 Mcg Inh (Fluticasone/Vilanterol) 1 Each Aer.pow.ba 1 Puff IH DAILY 09/19/16 Reported Hydrocodone-Apap 5-325 (Hydrocodone Bit/Acetaminophen) 1 Each Tablet 1 Tab PO PRN Q8HRS PRN 09/19/16 Reported Carafate (Sucralfate) 1 Gm Tablet 1 Gm PO QIDACHS 30 06/26/16 Rx Nexium Capsule (Esomeprazole Magnesium) 40 Mg Capsule.dr Harrell Cap PO DAILY 06/24/16 Reported Metoprolol Succinate ( Xl ) (Metoprolol Succinate) 25 Mg Tab.er.24h 2 Tab PO DAILY 06/24/16 Reported Aspir 81 (Aspirin) 81 Mg Tablet. 1 Tab PO DAILY 11/22/15 Reported Effient (Prasugrel Hcl) 10 Mg Tablet 10 Mg PO DAILYWBKFT 11/22/15 Rx Xanax (Alprazolam) 0.25 Mg Tablet 0.25 Mg PO PRN TID PRN 11/19/15 Reported Valtrex (Valacyclovir Hcl) 500 Mg Tablet 500 Mg PO BID 11/19/15 Reported Fenofibrate (Fenofibrate Nanocrystallized) 145 Mg Tablet 160 Mg PO DAILY 06/19/14 Reported Citalopram Hbr (Citalopram Hydrobromide) 40 Mg Tablet 40 Mg PO HS 03/23/14 Reported Metformin Hcl 1,000 Mg Tablet 1,000 Mg PO BID 03/20/14 Reported Duoneb 0.5 Mg-3 Mg/3 Ml Soln (Ipratropium/Albuterol Sulfate) 3 Ml Ampul.neb 3 Ml IH QID 03/20/14 Reported Comments cxr reviewed, no infilt Impression . IMPRESSION: 1. Acute on chronic hypoxemic respiratory failure. 2. Acute exacerbation of chronic obstructive pulmonary disease. 3. acute bronchitis 4. History of tobacco use. 5. Anxiety. 6. allergic rhinitis Plan . PLAN: 1. doxycycline. 2. lose wt 3. cont solumedrol, no change 4. DVT and GI prophylaxis. 5. 02 titration 6. bronchodilator 7. ics 8. singulair discussed w pt please disregard this note, see the other note done today AYANA WORKMAN MD Feb 09, 2017 11:08
--- NOTE | 2017-02-09 14:29 | PDOC ---
GENERAL General: vss and afebrile. awake and alert. still marked sob just going to bathroom. chest will continue rhonchi and occasional wheeze. continue same. pulmonary help appreciated. Problems: VITAL SIGNS Vital Signs: Vital Signs Date Time Temp Pulse Resp B/P Pulse Ox O2 Delivery O2 Flow Rate FiO2 02/09/17 12:53 Nasal Cannula 3.0 02/09/17 11:00 98.5 83 18 162/74 94 98.5 I & O I & O Intake and Output 02/09/17 07:00 Intake Total 1200 ml Balance 1200 ml Intake Oral 1200 ml # Voids 7 # Bowel Movements 1 ALLERGIES Allergies: Allergies Coded Allergies Type Severity Reaction Last Updated Verified levofloxacin Allergy Intermediate Hives 09/21/15 Yes MEDS Medications: Current Medications Medications (Trade) Dose Ordered Sig/Juan Start Time Stop Time Status Last Admin Dose Admin Acetaminophen/ Hydrocodone Bitart (Lortab 5/325) 1 tab PRN Q8HRS PRN 02/07/17 10:00 Albuterol/ Ipratropium (Duoneb) 3 ml RTQID 02/07/17 12:00 02/09/17 12:51 3 ML Alprazolam (Xanax) 0.25 mg PRN TID PRN 02/07/17 10:00 02/08/17 14:19 0.25 MG Amlodipine Besylate (Norvasc) 2.5 mg DAILY 02/07/17 10:30 02/09/17 09:57 2.5 MG Aspirin (Ecotrin) 81 mg DAILY 02/07/17 10:30 02/09/17 09:57 81 MG Atorvastatin Calcium (Lipitor) 20 mg DAILY 02/07/17 10:30 02/09/17 09:56 20 MG Benzonatate (Tessalon Perle) 100 mg [id number] 02/07/17 17:30 02/09/17 09:59 100 MG Budesonide (Pulmicort) 0.5 mg RTBID 02/08/17 12:00 02/09/17 06:14 0.5 MG Bupropion HCl (Wellbutrin Xl) 300 mg DAILY 02/07/17 10:30 02/09/17 09:58 300 MG Citalopram Hydrobromide (Celexa) 40 mg QHS 02/07/17 21:00 02/08/17 20:14 40 MG Cyclobenzaprine HCl (Flexeril) 5 mg PRN TID PRN 02/07/17 10:15 Dextrose 12.5 gm PRN Q15MIN PRN 02/07/17 12:30 Doxycycline Hyclate (Vibra-Tab) 100 mg BID 02/07/17 10:30 02/09/17 09:58 100 MG Fenofibrate (Lofibra) 134 mg DAILY 02/07/17 10:30 02/09/17 09:57 134 MG Insulin Aspart (Novolog) 0-5 UNITS TIDWMEALS 02/07/17 17:00 02/09/17 12:47 2 UNITS Isosorbide Mononitrate (Imdur) 30 mg DAILY 02/07/17 10:30 02/09/17 09:56 30 MG Levofloxacin (Levaquin) 250 mg DAILY06 02/08/17 06:00 UNV Levothyroxine Sodium (Synthroid) 88 mcg DAILY06 02/07/17 10:30 02/09/17 06:26 88 MCG Metformin HCl (Glucophage) 1,000 mg BIDWMEALS 02/07/17 12:00 02/09/17 09:57 1,000 MG Methylprednisolone Sodium Succinate (Solu-Medrol 40mg Vial) 40 mg Q12HR 02/08/17 21:00 02/09/17 09:58 40 MG Methylprednisolone Sodium Succinate (Solu-Medrol 125mg Vial) 125 mg 1X ONCE 02/07/17 03:00 02/07/17 03:01 DC 02/07/17 03:19 125 MG Metoprolol Succinate (Toprol Xl) 25 mg DAILY 02/07/17 10:30 02/09/17 09:58 25 MG Montelukast Sodium (Singulair) 10 mg QHS 02/08/17 21:00 02/08/17 20:15 10 MG Ondansetron HCl (Zofran) 4 mg PRN Q4HRS PRN 02/08/17 16:15 02/08/17 16:44 4 MG Pantoprazole Sodium (Protonix) 40 mg DAILYAC 02/07/17 10:30 02/09/17 06:26 40 MG Prasugrel (Effient) 10 mg DAILYWBKFT 3/16/17 10:30 02/09/17 09:57 10 MG Prednisone (Prednisone) 40 mg DAILY 02/07/17 10:30 02/08/17 11:08 DC 02/08/17 08:35 40 MG Sucralfate (Carafate) 1 gm QIDACHS 02/07/17 11:30 02/09/17 12:45 1 GM Throat Lozenges (Cepacol Sore Throat Lozenge) 1 francisco PRN Q2HRS PRN 02/07/17 17:30 02/08/17 11:05 1 [facility] Lab: Laboratory Tests Test 02/08/17 17:05 02/08/17 20:14 02/09/17 08:15 02/09/17 12:18 Glucose (Fingerstick) 215mg/dL (70-99) 236mg/dL (70-99) 190mg/dL (70-99) 167mg/dL (70-99) ANASTASIIA VU MD Feb 09, 2017 14:29
[2017-02-09 15:00] VITALS: BP 142/66
[2017-02-09] MEDS: ALPRAZOLAM 0.25 MG TABLET PO PRN (16:31)
[2017-02-09 19:05] VITALS: BP 144/75
[2017-02-09] MEDS: MONTELUKAST SODIUM 10 MG TABLET. PO SCH (20:10)
[2017-02-09] MEDS: CITALOPRAM 20 MG TABLET. PO SCH (20:11)
[2017-02-09] MEDS: BENZOCAINE/MENTHOL LOZENGE. PO PRN (20:11)
[2017-02-09 23:05] VITALS: BP 157/83
[2017-02-10 03:05] VITALS: BP 174/95
[2017-02-10] MEDS: LEVOTHYROXINE 88 MCG TABLET PO SCH (06:34)
[2017-02-10] MEDS: BUDESONIDE 0.5 MG/2 ML NEBU NEB SCH ×2 (06:58→19:13)
[2017-02-10] MEDS: IPRATRPIUM/ALBUTEROL 0.5/2.5MG 3 ML NEBU. NEB SCH ×4 (06:58→19:13)
[2017-02-10 07:00] VITALS: BP 164/87
[2017-02-10] MEDS: ATORVASTATIN CALCIUM 20 MG TABLET PO SCH (09:03)
[2017-02-10] MEDS: DOXYCYCLINE HYCLATE 100 MG TABLET PO SCH ×2 (09:03→20:27)
[2017-02-10] MEDS: PANTOPRAZOLE 40 MG TABLET. PO SCH (09:03)
[2017-02-10] MEDS: METOPROLOL SUCC 24HR ER 25 MG TAB.ER.24H. PO SCH (09:04)
[2017-02-10] MEDS: BENZONATATE 100 MG CAPSULE. PO SCH ×3 (09:04→20:32)
[2017-02-10] MEDS: PRASUGREL 10 MG TABLET. PO SCH (09:04)
[2017-02-10] MEDS: FENOFIBRATE,MICRONIZED 134 MG CAPSULE PO SCH (09:04)
[2017-02-10] MEDS: METFORMIN 1,000 MG TABLET PO SCH ×2 (09:04→17:18)
[2017-02-10] MEDS: buPROPion XL 150 MG TAB.ER.24H PO SCH (09:04)
[2017-02-10] MEDS: ISOSORBIDE MONONITRATE ER 30 MG TAB.ER.24H PO SCH (09:05)
[2017-02-10] MEDS: AMLODIPINE BESYLATE 2.5 MG TABLET PO SCH (09:05)
[2017-02-10] MEDS: ASPIRIN ENTERIC COATED 81 MG TABLET.DR. PO SCH (09:05)
[2017-02-10] MEDS: methylPREDNISolone SOD SUCC PF 40 MG/ML VIAL. IV SCH (09:05)
[2017-02-10] MEDS: SUCRALFATE 1 GM TABLET. PO SCH ×4 (09:05→20:27)
[2017-02-10] MEDS: INSULIN ASPART 300 UNITS/3 ML INSULN.PEN SQ SCH ×3 (09:10→17:23)
--- NOTE | 2017-02-10 09:31 | PDOC ---
PULMONARY PROGRESS NOTES Subjective has sob, slightly better. has cough, wheezing, dry nose. no pain. on 20 3 lpm cont at home Vitals Vital Signs Date Time Temp Pulse Resp B/P Pulse Ox O2 Delivery O2 Flow Rate FiO2 02/10/17 09:05 78 164/87 02/10/17 08:00 Nasal Cannula 3.0 02/10/17 07:00 98.0 20 99 98.0 Comments ros as mentioned as above other sys otherwise eng ROS: No Nausea, No Chest Pain, No Abdominal Pain General: Alert, Oriented X4, No acute distress HEENT: Other Lungs: Wheezing Cardiovascular: S1, S2 Abdomen: Soft, Non-tender Neuro Exam: Alert, Oriented Extremities: No Edema Skin: Warm Labs Laboratory Tests Test 02/08/17 11:49 02/08/17 17:05 02/08/17 20:14 02/09/17 08:15 Glucose (Fingerstick) 260mg/dL (70-99) 215mg/dL (70-99) 236mg/dL (70-99) 190mg/dL (70-99) Test 02/09/17 12:18 02/09/17 17:01 02/09/17 20:58 02/10/17 07:36 Glucose (Fingerstick) 167mg/dL (70-99) 277mg/dL (70-99) 160mg/dL (70-99) 177mg/dL (70-99) Laboratory Tests Test 02/09/17 12:18 02/09/17 17:01 02/09/17 20:58 02/10/17 07:36 Glucose (Fingerstick) 167mg/dL (70-99) 277mg/dL (70-99) 160mg/dL (70-99) 177mg/dL (70-99) Medications Active Scripts Medications Dose Route/Sig Days Date Category Dose Instructions Cyclobenzaprine Hcl 5 Mg Tablet 1 Tab PO TID PRN 01/14/17 Rx Prednisone 10 Mg Tablet 10 Mg PO UD 12/12/16 Rx Take 3 tablets by mouth twice a day for 3 days, then take 2 tablets by mouth twice a day for 3 days, then take 1 tablet by mouth twice a day for 3 days, then take 1 tablet by mouth daily x 3 days, then stop. Cefpodoxime Proxetil 200 Mg Tablet 1 Tab PO BID 09/23/16 Reported Amlodipine Besylate 2.5 Mg Tablet 2.5 Mg PO DAILY 09/19/16 Reported Atorvastatin Calcium 20 Mg Tablet 20 Mg PO DAILY 09/19/16 Reported Isosorbide Mononitrate Er (Isosorbide Mononitrate) 30 Mg Tab.er.24h 30 Mg PO DAILY 09/19/16 Reported Levothyroxine Sodium 88 Mcg Tablet 88 Mcg PO DAILY06 09/19/16 Reported Ventolin Hfa Inhaler (Albuterol Sulfate) 18 Gm Hfa.aer.ad 2 Puff INH PRN QID PRN 09/19/16 Reported Bupropion Xl (Bupropion Hcl) 300 Mg Tab.er.24h 300 Mg PO DAILY 09/19/16 Reported Breo Ellipta 100-25 Mcg Inh (Fluticasone/Vilanterol) 1 Each Aer.pow.ba 1 Puff IH DAILY 09/19/16 Reported Hydrocodone-Apap 5-325 (Hydrocodone Bit/Acetaminophen) 1 Each Tablet 1 Tab PO PRN Q8HRS PRN 09/19/16 Reported Carafate (Sucralfate) 1 Gm Tablet 1 Gm PO QIDACHS 30 06/26/16 Rx Nexium Capsule (Esomeprazole Magnesium) 40 Mg Capsule. 1 Cap PO DAILY 06/24/16 Reported Metoprolol Succinate ( Xl ) (Metoprolol Succinate) 25 Mg Tab.er.24h 2 Tab PO DAILY 06/24/16 Reported Aspir 81 (Aspirin) 81 Mg Tablet. 1 Tab PO DAILY 11/22/15 Reported Effient (Prasugrel Hcl) 10 Mg Tablet 10 Mg PO DAILYWBKFT 11/22/15 Rx Xanax (Alprazolam) 0.25 Mg Tablet 0.25 Mg PO PRN TID PRN 11/19/15 Reported Valtrex (Valacyclovir Hcl) 500 Mg Tablet 500 Mg PO BID 11/19/15 Reported Fenofibrate (Fenofibrate Nanocrystallized) 145 Mg Tablet 160 Mg PO DAILY 06/19/14 Reported Citalopram Hbr (Citalopram Hydrobromide) 40 Mg Tablet 40 Mg PO HS 03/23/14 Reported Metformin Hcl 1,000 Mg Tablet 1,000 Mg PO BID 03/20/14 Reported Duoneb 0.5 Mg-3 Mg/3 Ml Soln (Ipratropium/Albuterol Sulfate) 3 Ml Ampul.neb 3 Ml IH QID 03/20/14 Reported Comments cxr reviewed, no infilt Impression . IMPRESSION: 1. Acute on chronic hypoxemic respiratory failure. 2. Acute exacerbation of chronic obstructive pulmonary disease. 3. acute bronchitis 4. History of tobacco use. 5. Anxiety. 6. allergic rhinitis Plan . PLAN: 1. doxycycline. 2. lose wt 3. change solumedrol to daily 4. DVT and GI prophylaxis. 5. 02 titration 6. bronchodilator 7. ics 8. singulair 9. increase activity, lose wt. discussed w pt AYANA WORKMAN MD Feb 10, 2017 09:31
--- NOTE | 2017-02-10 10:51 | PDOC ---
GENERAL General: vss and afebrile. awake and alert. sob some decreased but nowhere close to her baseline. less wheezy on exam today. sugars some increased with steroids. pulmonary help appreciated. continue same. Problems: VITAL SIGNS Vital Signs: Vital Signs Date Time Temp Pulse Resp B/P Pulse Ox O2 Delivery O2 Flow Rate FiO2 02/10/17 10:27 98 Nasal Cannula 3.0 02/10/17 09:05 78 164/87 02/10/17 07:00 98.0 20 98.0 I & O I & O Intake and Output 02/10/17 07:00 Intake Total 900 ml Output Total 850 ml Balance 50 ml Intake Oral 900 ml Output Urine Total 850 ml # Voids 3 ALLERGIES Allergies: Allergies Coded Allergies Type Severity Reaction Last Updated Verified levofloxacin Allergy Intermediate Hives 09/21/15 Yes MEDS Medications: Current Medications Medications (Trade) Dose Ordered Sig/Juan Start Time Stop Time Status Last Admin Dose Admin Acetaminophen/ Hydrocodone Bitart (Lortab 5/325) 1 tab PRN Q8HRS PRN 02/07/17 10:00 Albuterol/ Ipratropium (Duoneb) 3 ml RTQID 02/07/17 12:00 02/10/17 10:27 3 ML Alprazolam (Xanax) 0.25 mg PRN TID PRN 02/07/17 10:00 02/09/17 16:31 0.25 MG Amlodipine Besylate (Norvasc) 2.5 mg DAILY 02/07/17 10:30 02/10/17 09:05 2.5 MG Aspirin (Ecotrin) 81 mg DAILY 02/07/17 10:30 02/10/17 09:05 81 MG Atorvastatin Calcium (Lipitor) 20 mg DAILY 02/07/17 10:30 02/10/17 09:03 20 MG Benzonatate (Tessalon Perle) 100 mg [id number] 02/07/17 17:30 02/10/17 09:04 100 MG Budesonide (Pulmicort) 0.5 mg RTBID 02/08/17 12:00 02/10/17 06:58 0.5 MG Bupropion HCl (Wellbutrin Xl) 300 mg DAILY 02/07/17 10:30 02/10/17 09:04 300 MG Citalopram Hydrobromide (Celexa) 40 mg QHS 02/07/17 21:00 02/09/17 20:11 40 MG Cyclobenzaprine HCl (Flexeril) 5 mg PRN TID PRN 02/07/17 10:15 Dextrose 12.5 gm PRN Q15MIN PRN 02/07/17 12:30 Doxycycline Hyclate (Vibra-Tab) 100 mg BID 02/07/17 10:30 02/10/17 09:03 100 MG Fenofibrate (Lofibra) 134 mg DAILY 02/07/17 10:30 02/10/17 09:04 134 MG Insulin Aspart (Novolog) 0-5 UNITS TIDWMEALS 02/07/17 17:00 02/10/17 09:10 2 UNITS Isosorbide Mononitrate (Imdur) 30 mg DAILY 02/07/17 10:30 02/10/17 09:05 30 MG Levofloxacin (Levaquin) 250 mg DAILY06 02/08/17 06:00 UNV Levothyroxine Sodium (Synthroid) 88 mcg DAILY06 02/07/17 10:30 02/10/17 06:34 88 MCG Metformin HCl (Glucophage) 1,000 mg BIDWMEALS 02/07/17 12:00 02/10/17 09:04 1,000 MG Methylprednisolone Sodium Succinate (Solu-Medrol 40mg Vial) 40 mg DAILY 02/11/17 09:00 Methylprednisolone Sodium Succinate (Solu-Medrol 125mg Vial) 125 mg 1X ONCE 02/07/17 03:00 02/07/17 03:01 DC 02/07/17 03:19 125 MG Metoprolol Succinate (Toprol Xl) 25 mg DAILY 02/07/17 10:30 02/10/17 09:04 25 MG Montelukast Sodium (Singulair) 10 mg QHS 02/08/17 21:00 02/09/17 20:10 10 MG Ondansetron HCl (Zofran) 4 mg PRN Q4HRS PRN 02/08/17 16:15 02/08/17 16:44 4 MG Pantoprazole Sodium (Protonix) 40 mg DAILYAC 02/07/17 10:30 02/10/17 09:03 40 MG Prasugrel (Effient) 10 mg DAILYWBKFT 02/07/17 10:30 02/10/17 09:04 10 MG Prednisone (Prednisone) 40 mg DAILY 02/07/17 10:30 02/08/17 11:08 DC 02/08/17 08:35 40 MG Sucralfate (Carafate) 1 gm QIDACHS 02/07/17 11:30 02/10/17 09:05 1 GM Throat Lozenges (Cepacol Sore Throat Lozenge) 1 francisco PRN Q2HRS PRN 02/07/17 17:30 02/09/17 20:11 1 [facility] Lab: Laboratory Tests Test 02/09/17 12:18 02/09/17 17:01 02/09/17 20:58 02/10/17 07:36 Glucose (Fingerstick) 167mg/dL (70-99) 277mg/dL (70-99) 160mg/dL (70-99) 177mg/dL (70-99) ANASTASIIA VU MD Feb 10, 2017 10:51
[2017-02-10 11:00] VITALS: BP 156/75
[2017-02-10] MEDS: ONDANSETRON PF 4 MG/2 ML VIAL. IV PRN (12:23)
[2017-02-10 15:00] VITALS: BP 128/69
[2017-02-10 19:00] VITALS: BP 131/60
[2017-02-10] MEDS: CITALOPRAM 20 MG TABLET. PO SCH (20:27)
[2017-02-10] MEDS: MONTELUKAST SODIUM 10 MG TABLET. PO SCH (20:27)
[2017-02-10 23:00] VITALS: BP 157/79
[2017-02-11 03:00] VITALS: BP 164/79
[2017-02-11] MEDS: LEVOTHYROXINE 88 MCG TABLET PO SCH (06:10)
[2017-02-11 07:36] VITALS: BP 170/70
[2017-02-11] MEDS: INSULIN ASPART 300 UNITS/3 ML INSULN.PEN SQ SCH ×3 (08:00→16:46)
[2017-02-11] MEDS: IPRATRPIUM/ALBUTEROL 0.5/2.5MG 3 ML NEBU. NEB SCH ×4 (08:00→19:11)
[2017-02-11] MEDS: BUDESONIDE 0.5 MG/2 ML NEBU NEB SCH ×2 (08:00→19:12)
[2017-02-11] MEDS: DOXYCYCLINE HYCLATE 100 MG TABLET PO SCH ×2 (08:30→20:22)
[2017-02-11] MEDS: ISOSORBIDE MONONITRATE ER 30 MG TAB.ER.24H PO SCH (08:30)
[2017-02-11] MEDS: ASPIRIN ENTERIC COATED 81 MG TABLET.DR. PO SCH (08:30)
[2017-02-11] MEDS: PANTOPRAZOLE 40 MG TABLET. PO SCH (08:30)
[2017-02-11] MEDS: PRASUGREL 10 MG TABLET. PO SCH (08:30)
[2017-02-11] MEDS: FENOFIBRATE,MICRONIZED 134 MG CAPSULE PO SCH (08:30)
[2017-02-11] MEDS: METFORMIN 1,000 MG TABLET PO SCH ×2 (08:31→16:41)
[2017-02-11] MEDS: ATORVASTATIN CALCIUM 20 MG TABLET PO SCH (08:31)
[2017-02-11] MEDS: AMLODIPINE BESYLATE 2.5 MG TABLET PO SCH (08:31)
[2017-02-11] MEDS: buPROPion XL 150 MG TAB.ER.24H PO SCH (08:31)
[2017-02-11] MEDS: BENZONATATE 100 MG CAPSULE. PO SCH ×3 (08:31→20:22)
[2017-02-11] MEDS: METOPROLOL SUCC 24HR ER 25 MG TAB.ER.24H. PO SCH (08:31)
[2017-02-11] MEDS: SUCRALFATE 1 GM TABLET. PO SCH ×4 (08:31→20:22)
[2017-02-11] MEDS: methylPREDNISolone SOD SUCC PF 40 MG/ML VIAL. IV SCH (08:32)
[2017-02-11 11:25] VITALS: BP 185/77
--- NOTE | 2017-02-11 12:26 | PDOC ---
PULMONARY PROGRESS NOTES Subjective pt feels better Vitals Vital Signs Date Time Temp Pulse Resp B/P Pulse Ox O2 Delivery O2 Flow Rate FiO2 02/11/17 11:25 98.1 88 19 185/77 96 Nasal Cannula 3.0 98.1 Comments ros as mentioned as above other sys otherwise eng ROS: No Nausea, No Chest Pain, No Abdominal Pain General: Alert, No acute distress HEENT: Other Lungs: Wheezing Cardiovascular: S1, S2 Abdomen: Soft, Non-tender Neuro Exam: Alert, Oriented Extremities: No Edema Skin: Warm Labs Laboratory Tests Test 02/09/17 17:01 02/09/17 20:58 02/10/17 07:36 02/10/17 11:54 Glucose (Fingerstick) 277mg/dL (70-99) 160mg/dL (70-99) 177mg/dL (70-99) 266mg/dL (70-99) Test 02/10/17 17:07 02/10/17 19:57 02/11/17 08:01 02/11/17 11:42 Glucose (Fingerstick) 233mg/dL (70-99) 230mg/dL (70-99) 107mg/dL (70-99) 221mg/dL (70-99) Laboratory Tests Test 02/10/17 17:07 02/10/17 19:57 02/11/17 08:01 02/11/17 11:42 Glucose (Fingerstick) 233mg/dL (70-99) 230mg/dL (70-99) 107mg/dL (70-99) 221mg/dL (70-99) Medications Active Scripts Medications Dose Route/Sig Days Date Category Dose Instructions Cyclobenzaprine Hcl 5 Mg Tablet 1 Tab PO TID PRN 01/14/17 Rx Prednisone 10 Mg Tablet 10 Mg PO UD 12/12/16 Rx Take 3 tablets by mouth twice a day for 3 days, then take 2 tablets by mouth twice a day for 3 days, then take 1 tablet by mouth twice a day for 3 days, then take 1 tablet by mouth daily x 3 days, then stop. Cefpodoxime Proxetil 200 Mg Tablet 1 Tab PO BID 09/23/16 Reported Amlodipine Besylate 2.5 Mg Tablet 2.5 Mg PO DAILY 09/19/16 Reported Atorvastatin Calcium 20 Mg Tablet 20 Mg PO DAILY 09/19/16 Reported Isosorbide Mononitrate Er (Isosorbide Mononitrate) 30 Mg Tab.er.24h 30 Mg PO DAILY 09/19/16 Reported Levothyroxine Sodium 88 Mcg Tablet 88 Mcg PO DAILY06 09/19/16 Reported Ventolin Hfa Inhaler (Albuterol Sulfate) 18 Gm Hfa.aer.ad 2 Puff INH PRN QID PRN 09/19/16 Reported Bupropion Xl (Bupropion Hcl) 300 Mg Tab.er.24h 300 Mg PO DAILY 09/19/16 Reported Breo Ellipta 100-25 Mcg Inh (Fluticasone/Vilanterol) 1 Each Aer.pow.ba 1 Puff IH DAILY 09/19/16 Reported Hydrocodone-Apap 5-325 (Hydrocodone Bit/Acetaminophen) 1 Each Tablet 1 Tab PO PRN Q8HRS PRN 09/19/16 Reported Carafate (Sucralfate) 1 Gm Tablet 1 Gm PO QIDACHS 30 06/26/16 Rx Nexium Capsule (Esomeprazole Magnesium) 40 Mg Capsule.dr 1 Cap PO DAILY 06/24/16 Reported Metoprolol Succinate ( Xl ) (Metoprolol Succinate) 25 Mg Tab.er.24h 2 Tab PO DAILY 06/24/16 Reported Aspir 81 (Aspirin) 81 Mg Tablet. 1 Tab PO DAILY 11/22/15 Reported Effient (Prasugrel Hcl) 10 Mg Tablet 10 Mg PO DAILYWBKFT 11/22/15 Rx Xanax (Alprazolam) 0.25 Mg Tablet 0.25 Mg PO PRN TID PRN 11/19/15 Reported Valtrex (Valacyclovir Hcl) 500 Mg Tablet 500 Mg PO BID 11/19/15 Reported Fenofibrate (Fenofibrate Nanocrystallized) 145 Mg Tablet 160 Mg PO DAILY 06/19/14 Reported Citalopram Hbr (Citalopram Hydrobromide) 40 Mg Tablet 40 Mg PO HS 03/23/14 Reported Metformin Hcl 1,000 Mg Tablet 1,000 Mg PO BID 03/20/14 Reported Duoneb 0.5 Mg-3 Mg/3 Ml Soln (Ipratropium/Albuterol Sulfate) 3 Ml Ampul.neb 3 Ml IH QID 03/20/14 Reported Comments cxr reviewed, no infilt Impression . IMPRESSION: 1. Acute on chronic hypoxemic respiratory failure. 2. Acute exacerbation of chronic obstructive pulmonary disease. 3. acute bronchitis 4. History of tobacco use. 5. Anxiety. 6. allergic rhinitis Plan . much better ok to d/c in am follow up in office in 4 weeks SLICK BARNHART MD Feb 11, 2017 12:26
--- NOTE | 2017-02-11 12:34 | PDOC ---
SUBJECTIVE Subjective c/o blurry vision, Bp up. breathing still cough less wheezing OBJECTIVE Vital Signs Vital Signs Date Time Temp Pulse Resp B/P Pulse Ox O2 Delivery O2 Flow Rate FiO2 02/11/17 11:25 98.1 88 19 185/77 96 Nasal Cannula 3.0 98.1 02/11/17 10:59 94 Nasal Cannula 3.0 02/11/17 08:31 79 170/70 02/11/17 08:31 79 170/70 02/11/17 08:30 79 170/70 02/11/17 08:01 97 Nasal Cannula 3.0 02/11/17 08:00 Nasal Cannula 3.0 02/11/17 07:36 97.9 79 19 170/70 97 Nasal Cannula 3.0 97.9 02/11/17 03:00 97.7 80 19 164/79 97 Nasal Cannula 3.0 97.7 02/10/17 23:00 98.0 81 20 157/79 96 Nasal Cannula 3.0 98.0 02/10/17 20:00 Nasal Cannula 3.0 02/10/17 19:10 97 Nasal Cannula 3.0 02/10/17 19:00 98.1 83 19 131/60 95 Nasal Cannula 3.0 98.1 02/10/17 15:00 97.9 88 20 128/69 98 Nasal Cannula 3.0 97.9 02/10/17 14:53 Nasal Cannula 3.0 I & O Intake and Output 02/11/17 07:00 Intake Total 1200 ml Balance 1200 ml Intake Oral 1200 ml # Voids 7 PHYSICAL EXAM Physical Exam less wheezing heart RRR abd soft ext no edema ASSESSMENT/PLAN Assessment/Plan COPD improving, cough better, increase Bp medication, increase activity today , hope discharge in AM Problems: COMMENT Lab Laboratory Tests Test 02/10/17 17:07 02/10/17 19:57 02/11/17 08:01 02/11/17 11:42 Glucose (Fingerstick) 233mg/dL (70-99) 230mg/dL (70-99) 107mg/dL (70-99) 221mg/dL (70-99) AURA TEJEDA MD Feb 11, 2017 12:34
[2017-02-11] MEDS ORDERED: LOSARTAN POTASSIUM 50 MG TABLET. PO SCH (14:00)
[2017-02-11 15:00] VITALS: BP 161/66
[2017-02-11] MEDS: ALPRAZOLAM 0.25 MG TABLET PO PRN (16:41)
[2017-02-11 19:35] VITALS: BP 144/69
[2017-02-11] MEDS: CITALOPRAM 20 MG TABLET. PO SCH (20:22)
[2017-02-11] MEDS: MONTELUKAST SODIUM 10 MG TABLET. PO SCH (20:22)
[2017-02-11 23:35] VITALS: BP 166/86
[2017-02-12 03:40] VITALS: BP 178/78
[2017-02-12] MEDS: LEVOTHYROXINE 88 MCG TABLET PO SCH (05:57)
[2017-02-12] MEDS: ONDANSETRON PF 4 MG/2 ML VIAL. IV PRN (06:04)
[2017-02-12 07:00] VITALS: BP 174/93
[2017-02-12] MEDS: BUDESONIDE 0.5 MG/2 ML NEBU NEB SCH (07:46)
[2017-02-12] MEDS: IPRATRPIUM/ALBUTEROL 0.5/2.5MG 3 ML NEBU. NEB SCH ×2 (07:46→11:21)
[2017-02-12] MEDS: INSULIN ASPART 300 UNITS/3 ML INSULN.PEN SQ SCH ×2 (08:00→12:48)
[2017-02-12] MEDS: PRASUGREL 10 MG TABLET. PO SCH (08:15)
[2017-02-12] MEDS: buPROPion XL 150 MG TAB.ER.24H PO SCH (08:15)
[2017-02-12] MEDS: SUCRALFATE 1 GM TABLET. PO SCH ×2 (08:15→12:46)
[2017-02-12] MEDS: PANTOPRAZOLE 40 MG TABLET. PO SCH (08:15)
[2017-02-12] MEDS: ATORVASTATIN CALCIUM 20 MG TABLET PO SCH (08:15)
[2017-02-12] MEDS: FENOFIBRATE,MICRONIZED 134 MG CAPSULE PO SCH (08:15)
[2017-02-12] MEDS: ASPIRIN ENTERIC COATED 81 MG TABLET.DR. PO SCH (08:15)
[2017-02-12] MEDS: BENZONATATE 100 MG CAPSULE. PO SCH ×2 (08:15→12:46)
[2017-02-12] MEDS: DOXYCYCLINE HYCLATE 100 MG TABLET PO SCH (08:15)
[2017-02-12] MEDS: METFORMIN 1,000 MG TABLET PO SCH (08:15)
[2017-02-12] MEDS: ISOSORBIDE MONONITRATE ER 30 MG TAB.ER.24H PO SCH (08:16)
[2017-02-12 08:17] VITALS: BP 174/93
[2017-02-12] MEDS: methylPREDNISolone SOD SUCC PF 40 MG/ML VIAL. IV SCH (08:17)
[2017-02-12] MEDS: METOPROLOL SUCC 24HR ER 25 MG TAB.ER.24H. PO SCH (08:17)
[2017-02-12] MEDS ORDERED: DOXY100T PO (08:59)
[2017-02-12] MEDS ORDERED: PRED-220 PO (08:59)
[2017-02-12] MEDS ORDERED: MONT10TA9 PO (08:59)
[2017-02-12] MEDS ORDERED: BENZ100C2 PO (08:59)
[2017-02-12] MEDS ORDERED: LOSA50TA2 PO (08:59)
[2017-02-12] MEDS ORDERED: AMLO2.5T PO (08:59)
[2017-02-12] MEDS ORDERED: AMLODIPINE BESYLATE 5 MG TABLET PO SCH (09:00)
--- NOTE | 2017-02-12 09:04 | PDOC ---
SUBJECTIVE Subjective feels better, less cough, less wheezing OBJECTIVE Objective Bp still elevated , medication adjusted and given new scripts Vital Signs Vital Signs Date Time Temp Pulse Resp B/P Pulse Ox O2 Delivery O2 Flow Rate FiO2 02/12/17 08:17 76 174/93 02/12/17 08:16 76 174/93 02/12/17 08:16 76 174/93 02/12/17 07:46 98 Nasal Cannula 3.0 02/12/17 07:00 97.9 76 20 174/93 97 Nasal Cannula 3.0 97.9 02/12/17 03:40 98.0 80 18 178/78 97 Nasal Cannula 3.0 98.0 02/11/17 23:35 98.0 87 18 166/86 98 Nasal Cannula 3.0 98.0 02/11/17 20:00 Nasal Cannula 3.0 02/11/17 19:35 98.3 88 18 144/69 96 Nasal Cannula 3.0 98.3 02/11/17 19:13 Nasal Cannula 3.0 02/11/17 15:46 Nasal Cannula 3.0 02/11/17 15:00 98.3 92 19 161/66 94 Nasal Cannula 3.0 98.3 02/11/17 13:00 88 185/77 02/11/17 11:25 98.1 88 19 185/77 96 Nasal Cannula 3.0 98.1 02/11/17 10:59 94 Nasal Cannula 3.0 I & O Intake and Output 02/12/17 07:00 Intake Total 750 ml Balance 750 ml Intake Oral 750 ml # Voids 6 PHYSICAL EXAM Physical Exam lungs decrease BS heart RRR abd soft ext no edema ASSESSMENT/PLAN Assessment/Plan improved reasnobly well, home today on taper steroids and Doxycycline , f/u within a week with Dr. Hoang Problems: COMMENT Lab Laboratory Tests Test 02/11/17 11:42 02/11/17 16:39 02/11/17 20:40 02/12/17 07:32 Glucose (Fingerstick) 221mg/dL (70-99) 226mg/dL (70-99) 178mg/dL (70-99) 114mg/dL (70-99) AURA TEJEDA MD Feb 12, 2017 09:04
--- NOTE | 2017-02-12 09:08 | PDOC3 ---
Discharge Summary* Date of Admission: Feb 07, 2017 Date of Discharge: Feb 12, 2017 Admitting Diagnosis Problems Medical Problems: (1) COPD exacerbation Status: Acute Final Diagnosis 1. Acute on chronic hypoxemic respiratory failure. 2. Acute exacerbation of chronic obstructive pulmonary disease. 3. acute bronchitis 4. History of tobacco use. 5. Anxiety. 6. allergic rhinitis 7. HTN and hypertensive cardiovascular disease (1) COPD exacerbation Status: Acute CONSULTS pulmonary [place] Procedures CXR Brief Hospital Course Ms. Cash is a 62 old [sex] who presented with [ ] Disposition/Orders: D/C to Home CONDITION AT DISCHARGE: Improved Diet: Cardiac, Consistent Carbohydrate Scheduled Amlodipine Besylate (Amlodipine Besylate) 5 MG PO DAILY Aspirin (Aspir 81) 1 TAB PO DAILY (Reported) Atorvastatin Calcium (Atorvastatin Calcium) 20 MG PO DAILY (Reported) Benzonatate (Benzonatate) 100 MG PO [id number] Bupropion Hcl (Bupropion Xl) 300 MG PO DAILY (Reported) Cefpodoxime Proxetil (Cefpodoxime Proxetil) 1 TAB PO BID (Reported) Citalopram Hydrobromide (Citalopram Hbr) 40 MG PO HS (Reported) Doxycycline Hyclate (Doxycycline Hyclate) 100 MG PO BID Esomeprazole Magnesium (Nexium Capsule) 1 CAP PO DAILY (Reported) Fenofibrate Nanocrystallized (Fenofibrate) 160 MG PO DAILY (Reported) Fluticasone/Vilanterol (Breo Ellipta 100-25 Mcg Inh) 1 PUFF IH DAILY (Reported) Ipratropium/Albuterol Sulfate (Duoneb 0.5 Mg-3 Mg/3 Ml Soln) 3 ML IH QID ( Reported) Isosorbide Mononitrate (Isosorbide Mononitrate Er) 30 MG PO DAILY (Reported) Levothyroxine Sodium (Levothyroxine Sodium) 88 MCG PO DAILY06 (Reported) Losartan Potassium (Cozaar) 100 MG PO DAILY@14 Metformin Hcl (Metformin Hcl) 1,000 MG PO BID (Reported) Metoprolol Succinate (Metoprolol Succinate ( Xl )) 2 TAB PO DAILY (Reported) Montelukast Sodium (Montelukast Sodium Tablet) 10 MG PO QHS Prasugrel Hcl (Effient) 10 MG PO [id number] Prednisone (Prednisone) 10 MG PO UD Sucralfate (Carafate) 1 GM PO QIDACHS Valacyclovir Hcl (Valtrex) 500 MG PO BID (Reported) Scheduled PRN Albuterol Sulfate (Ventolin Hfa Inhaler) 2 PUFF INH PRN QID PRN PRN SHORTNESS OF BREATH (Reported) Alprazolam (Xanax) 0.25 MG PO PRN TID PRN PRN ANXIETY / AGITATION (Reported) Cyclobenzaprine Hcl (Cyclobenzaprine Hcl) 1 TAB PO TID PRN PRN MUSCLE SPASMS Hydrocodone Bit/Acetaminophen (Hydrocodone-Apap 5-325 ) 1 TAB PO PRN Q8HRS PRN PRN PAIN (Reported) FOLLOW UP APPOINTMENT: Dr. Hoang 1 manny Oropeza 2 weeks Time Spent Total time spent with patient [] minutes for coordination of care, counseling, and education. AURA TEJEDA MD Feb 12, 2017 09:08
--- NOTE | 2017-02-12 10:46 | PDOC ---
PULMONARY PROGRESS NOTES Subjective pt feels better Vitals Vital Signs Date Time Temp Pulse Resp B/P Pulse Ox O2 Delivery O2 Flow Rate FiO2 02/12/17 08:17 76 174/93 02/12/17 08:00 Nasal Cannula 3.0 02/12/17 07:46 98 02/12/17 07:00 97.9 20 97.9 Comments ros as mentioned as above other sys otherwise eng ROS: No Nausea, No Chest Pain, No Abdominal Pain General: Alert, No acute distress HEENT: Other Lungs: Wheezing Cardiovascular: S1, S2 Abdomen: Soft, Non-tender Neuro Exam: Alert, Oriented Extremities: No Edema Skin: Warm Labs Laboratory Tests Test 02/10/17 11:54 02/10/17 17:07 02/10/17 19:57 02/11/17 08:01 Glucose (Fingerstick) 266mg/dL (70-99) 233mg/dL (70-99) 230mg/dL (70-99) 107mg/dL (70-99) Test 02/11/17 11:42 02/11/17 16:39 02/11/17 20:40 02/12/17 07:32 Glucose (Fingerstick) 221mg/dL (70-99) 226mg/dL (70-99) 178mg/dL (70-99) 114mg/dL (70-99) Laboratory Tests Test 02/11/17 11:42 02/11/17 16:39 02/11/17 20:40 02/12/17 07:32 Glucose (Fingerstick) 221mg/dL (70-99) 226mg/dL (70-99) 178mg/dL (70-99) 114mg/dL (70-99) Medications Active Scripts Medications Dose Route/Sig Days Date Category Dose Instructions Cyclobenzaprine Hcl 5 Mg Tablet 1 Tab PO TID PRN 01/14/17 Rx Prednisone 10 Mg Tablet 10 Mg PO UD 12/12/16 Rx Take 3 tablets by mouth twice a day for 3 days, then take 2 tablets by mouth twice a day for 3 days, then take 1 tablet by mouth twice a day for 3 days, then take 1 tablet by mouth daily x 3 days, then stop. Cefpodoxime Proxetil 200 Mg Tablet 1 Tab PO BID 09/23/16 Reported Amlodipine Besylate 2.5 Mg Tablet 2.5 Mg PO DAILY 09/19/16 Reported Atorvastatin Calcium 20 Mg Tablet 20 Mg PO DAILY 09/19/16 Reported Isosorbide Mononitrate Er (Isosorbide Mononitrate) 30 Mg Tab.er.24h 30 Mg PO DAILY 09/19/16 Reported Levothyroxine Sodium 88 Mcg Tablet 88 Mcg PO DAILY06 09/19/16 Reported Ventolin Hfa Inhaler (Albuterol Sulfate) 18 Gm Hfa.aer.ad 2 Puff INH PRN QID PRN 09/19/16 Reported Bupropion Xl (Bupropion Hcl) 300 Mg Tab.er.24h 300 Mg PO DAILY 09/19/16 Reported Breo Ellipta 100-25 Mcg Inh (Fluticasone/Vilanterol) 1 Each Aer.pow.ba 1 Puff IH DAILY 09/19/16 Reported Hydrocodone-Apap 5-325 (Hydrocodone Bit/Acetaminophen) 1 Each Tablet 1 Tab PO PRN Q8HRS PRN 09/19/16 Reported Carafate (Sucralfate) 1 Gm Tablet 1 Gm PO QIDACHS 30 06/26/16 Rx Nexium Capsule (Esomeprazole Magnesium) 40 Mg Capsule. 1 Cap PO DAILY 06/24/16 Reported Metoprolol Succinate ( Xl ) (Metoprolol Succinate) 25 Mg Tab.er.24h 2 Tab PO DAILY 06/24/16 Reported Aspir 81 (Aspirin) 81 Mg Tablet.dr 1 Tab PO DAILY 11/22/15 Reported Effient (Prasugrel Hcl) 10 Mg Tablet 10 Mg PO DAILYWBKFT 11/22/15 Rx Xanax (Alprazolam) 0.25 Mg Tablet 0.25 Mg PO PRN TID PRN 11/19/15 Reported Valtrex (Valacyclovir Hcl) 500 Mg Tablet 500 Mg PO BID 11/19/15 Reported Fenofibrate (Fenofibrate Nanocrystallized) 145 Mg Tablet 160 Mg PO DAILY 06/19/14 Reported Citalopram Hbr (Citalopram Hydrobromide) 40 Mg Tablet 40 Mg PO HS 03/23/14 Reported Metformin Hcl 1,000 Mg Tablet 1,000 Mg PO BID 03/20/14 Reported Duoneb 0.5 Mg-3 Mg/3 Ml Soln (Ipratropium/Albuterol Sulfate) 3 Ml Ampul.neb 3 Ml IH QID 03/20/14 Reported Comments cxr reviewed, no infilt Impression . IMPRESSION: 1. Acute on chronic hypoxemic respiratory failure. 2. Acute exacerbation of chronic obstructive pulmonary disease. 3. acute bronchitis 4. History of tobacco use. 5. Anxiety. 6. allergic rhinitis Plan . much better ok to d/c today follow up in office in 4 weeks SLICK BARNHART MD Feb 12, 2017 10:46
== END 2017-02-12 13:00 | disposition home or self-care (01) | DRG 189 ==
LOC: ER 02:39 → 6 SOUTH 03:13
PROVIDERS: ADMIT Internal Medicine; ATTEND Internal Medicine
DX: J96.21 Acute and chronic respiratory failure with hypoxia (principal); J44.1 Chronic obstructive pulmonary disease with (acute) exacerbation; I50.32 Chronic diastolic (congestive) heart failure; J44.0 Chronic obstructive pulmonary disease with (acute) lower respiratory infection; J20.9 Acute bronchitis, unspecified; E03.9 Hypothyroidism, unspecified; E78.00 Pure hypercholesterolemia, unspecified; E78.5 Hyperlipidemia, unspecified; F41.9 Anxiety disorder, unspecified; G47.30 Sleep apnea, unspecified; G62.9 Polyneuropathy, unspecified; E11.42 Type 2 diabetes mellitus with diabetic polyneuropathy; I11.0 Hypertensive heart disease with heart failure; J30.9 Allergic rhinitis, unspecified; K21.9 Gastro-esophageal reflux disease without esophagitis; K58.9 Irritable bowel syndrome, unspecified; Z96.652 Presence of left artificial knee joint; Z86.711 Personal history of pulmonary embolism; Z86.718 Personal history of other venous thrombosis and embolism; Z87.891 Personal history of nicotine dependence; Z90.49 Acquired absence of other specified parts of digestive tract; Z88.1 Allergy status to other antibiotic agents; Z98.1 Arthrodesis status; Z99.81 Dependence on supplemental oxygen; I25.2 Old myocardial infarction; Z80.9 Family history of malignant neoplasm, unspecified; Z79.84 Long term (current) use of oral hypoglycemic drugs
CPT/HCPCS: 36415; 71010; 80048; 82947; 83880; 84484; 85027; 93005; 94250; 94640; 94760; 96374; J1815; J2405; J2920; J2930; J7512; J7620; 99285-25

== ENCOUNTER 2017-03-01 22:05 | Inpatient (IN) | payer BC, MEDICAID ==
[~2017-03-01] VITALS: Ht 162.6 cm; Wt 91.8 kg
[~2017-03-01 22:05] MED LIST changes: +BENZ100C2 PO; +DOXY100T PO; +LOSA50TA2 PO; +MONT10TA9 PO
[2017-03-01] MEDS ORDERED: FENTANYL PF 100 MCG/2 ML VIAL. IV PRN (22:30)
[2017-03-01 22:33] LABS: BASO # 0.1 x10^3/uL (0.0-0.2); BASO % 1 % (0-3); EOS % 1 % (0-3); HEMATOCRIT 39.6 % (36.0-47.0); HEMOGLOBIN 12.9 g/dL (12.0-15.5); LYMPH # 2.6 x10^3/uL (1.0-4.8); LYMPH % 19 % (24-48); MEAN CORPUSCULAR HEMOGLOBIN 30 pg (25-35); MEAN CORPUSCULAR HGB CONC 33 g/dL (31-37); MEAN CORPUSCULAR VOLUME 92 fL (79-100); MONO % 8 % (0-9); NEUT % 72 % (31-73); PLATELET COUNT 272 x10^3/uL (140-400); RED BLOOD COUNT 4.31 x10^6/uL (3.50-5.40); RED CELL DISTRIBUTION WIDTH 13.1 % (11.5-14.5); WHITE BLOOD COUNT 13.9 x10^3/uL (4.0-11.0)
--- NOTE | 2017-03-01 22:33 | PHYS DOC ---
Past Medical History Past Medical History: Anxiety, COPD, Diabetes-Type II, High Cholesterol, Hypertension, Hyperthyroid, IL Additional Past Medical Histor: EMPHYSEMA Past Surgical History: Angioplasty, Other Additional Past Surgical Histo: left knee replacementx2, spinal fusion, right knee arthroplasty, CTR Alcohol Use: Rarely Drug Use: None Adult General Chief Complaint Chief Complaint: CHEST PAIN HPI HPI Patient is a 62 year old female who presents with central chest pain that is sharp, lasting intensely for 10 min and has improved to mild pain now. Associated with nausea, dyspnea, lightheadedness and diaphoresis. Dyspnea currently resolved. States felt exactly like when she had IL with stent. She was prior in her normal state of health. She tried to take a neb at home and it made the pain worse. She denies cough changed from chronic cough, sputum changes, f/c, n/v, leg pain or swelling, palpitations, back pain, abdominal pain. Review of Systems Review of Systems Constitutional: Denies fever or chills [] Eyes: Denies change in visual acuity, redness, or eye pain [] HENT: Denies nasal congestion or sore throat [] Respiratory: Denies cough or shortness of breath [] Cardiovascular: No additional information not addressed in HPI [] GI: Denies abdominal pain, nausea, vomiting, bloody stools or diarrhea [] : Denies dysuria or hematuria [] Musculoskeletal: Denies back pain or joint pain [] Integument: Denies rash or skin lesions [] Neurologic: Denies headache, focal weakness or sensory changes [] Endocrine: Denies polyuria or polydipsia [] Current Medications Current Medications Current Medications Medications (Trade) Dose Ordered Sig/Juan Start Time Stop Time Status Last Admin Dose Admin Fentanyl Citrate (Fentanyl 2ml Vial) 50 mcg PRN Q15MIN PRN 03/01/17 22:30 03/02/17 22:29 03/01/17 22:47 50 MCG Allergies Allergies Allergies Coded Allergies Type Severity Reaction Last Updated Verified levofloxacin Allergy Intermediate Hives 09/21/15 Yes Physical Exam Physical Exam Constitutional: Well developed, well nourished, no acute distress, non-toxic appearance. [] HENT: Normocephalic, atraumatic, bilateral external ears normal, oropharynx moist, nose normal. [] Eyes: PERRLA, EOMI. [] Neck: Normal range of motion, supple, no stridor. [] Cardiovascular:Heart rate regular rhythm [] Lungs & Thorax: Mild bilateral wheezing, no crackles, normal respiratory effort [] Abdomen: Bowel sounds normal, soft, no tenderness. [] Skin: Warm, dry, no erythema, no rash. [] Back: No tenderness, no CVA tenderness. [] Extremities: No tenderness, ROM intact, no edema, no palpable cord. [] Neurologic: Alert and oriented X 3, normal motor function, normal sensory function, no focal deficits noted. [] Psychologic: Affect normal, judgement normal, mood normal. [] Current Patient Data Vital Signs Vital Signs Date Time Temp Pulse Resp B/P Pulse Ox O2 Delivery O2 Flow Rate FiO2 03/01/17 22:14 98.6 90 24 152/87 96 Nasal Cannula 3 98.6 Lab Values Laboratory Tests Test 03/01/17 22:15 White Blood Count 13.9x10^3/uL (4.0-11.0) H Red Blood Count 4.31x10^6/uL (3.50-5.40) Hemoglobin 12.9g/dL (12.0-15.5) Hematocrit 39.6% (36.0-47.0) Mean Corpuscular Volume 92fL (79-100) Mean Corpuscular Hemoglobin 30pg (25-35) Mean Corpuscular Hemoglobin Concent 33g/dL (31-37) Red Cell Distribution Width 13.1% (11.5-14.5) Platelet Count 272x10^3/uL (140-400) Neutrophils (%) (Auto) 72% (31-73) Lymphocytes (%) (Auto) 19% (24-48) L Monocytes (%) (Auto) 8% (0-9) Eosinophils (%) (Auto) 1% (0-3) Basophils (%) (Auto) 1% (0-3) Neutrophils # (Auto) 10.0x10^3uL (1.8-7.7) H Lymphocytes # (Auto) 2.6x10^3/uL (1.0-4.8) Monocytes # (Auto) 1.1x10^3/uL (0.0-1.1) Eosinophils # (Auto) 0.1x10^3/uL (0.0-0.7) Basophils # (Auto) 0.1x10^3/uL (0.0-0.2) Sodium Level 141mmol/L (136-145) Potassium Level 4.1mmol/L (3.5-5.1) Chloride Level 100mmol/L (98-107) Carbon Dioxide Level 36mmol/L (21-32) H Anion Gap 5 (6-14) L Blood Urea Nitrogen 33mg/dL (7-20) H Creatinine 1.7mg/dL (0.6-1.0) H Estimated GFR (Cockcroft-Gault) 30.4 Glucose Level 264mg/dL (70-99) H Calcium Level 9.4mg/dL (8.5-10.1) Troponin I Quantitative < 0.017ng/mL (0.000-0.055) ZO-Rql-V-Type Natriuretic Peptide 261pg/mL (0-124) H Laboratory Tests 03/01/17 22:15 Laboratory Tests 03/01/17 22:15 EKG EKG As interpreted by me as normal sinus rhythm, rate 91, no ST-T changes, normal intervals, no ectopy Radiology/Procedures Radiology/Procedures Chest xray as interpreted by me with no acute cardiopulmonary disease process Course & Med Decision Making Course & Med Decision Making Pertinent Labs and Imaging studies reviewed. (See chart for details) Workup is largely unremarkable. DELTA score 3. Discussed case with Dr. Waldrop , for Dr. Colmenares, who agrees to admit for ACS rule out. Cardiology consult placed. Dragon Disclaimer Dragon Disclaimer This electronic medical record was generated, in whole or in part, using a voice recognition dictation system. Departure Departure Impression: Primary Impression: Chest pain Disposition: ADMITTED INPATIENT Condition: STABLE Referrals: DMITRI COLMENARES MD (PCP) Justina FISCHER MD Mar 01, 2017 22:33
[2017-03-01 22:44] LABS: CALCIUM 9.4 mg/dL (8.5-10.1); CREATININE 1.7 mg/dL (0.6-1.0); GFR 30.4; POTASSIUM 4.1 mmol/L (3.5-5.1)
[2017-03-01] MEDS ORDERED: ONDANSETRON PF 4 MG/2 ML VIAL. IV PRN (23:15)
[2017-03-01] MEDS ORDERED: ALBUTEROL SULFATE 2.5 MG/3 ML NEBU. NEB PRN (23:15)
[2017-03-01] MEDS ORDERED: ACETAMINOPHEN 325 MG TABLET. PO PRN (23:15)
[2017-03-01 23:28] VITALS: BP 102/47
[2017-03-02] MEDS: IV NORMAL SALINE 1000ML BAG 1,000 ML IV SCH ×2 (00:13→15:28)
[2017-03-02 02:52] VITALS: BP 115/70
[2017-03-02] MEDS: FENTANYL PF 100 MCG/2 ML VIAL. IV PRN ×3 (03:02→17:11)
[2017-03-02 07:41] VITALS: BP 110/65
[2017-03-02] MEDS ORDERED: ALPRAZOLAM 0.25 MG TABLET. PO PRN (08:00)
--- NOTE | 2017-03-02 08:35 | ACF ---
Admit Criteria Forms Admit Criteria Forms Admit Criteria Forms CARDIOLOGY GRG Clinical Indications for Admission to Inpatient Care ( Place 'X' for any and all applicable criteria): Hospital admission is needed for appropriate care of the patient because of ANY ONE of the following (1): [ ] I. Hemodynamic instability as indicated by ALL of the following (1)(2)(3) (4)(5) [ ]a) Vital signs or other findings not as expected for chronic patient condition or baseline [ ]b) Instability indicated by ANY ONE of the following: [ ]i) Hypotension [ ]ii) Symptomatic Tachycardia unresponsive to treatment ( e.g., analgesia, fluids, sedation as indicated) [ ]iii) Inadequate perfusion indicated by ANY ONE of the following: [ ] 1) Lactic acidosis (> 2 mmol/L) [ ] 2) New abnormal capillary refill (> 3 seconds) [ ] 3) Reduced urine output [ ] 4) New altered mental status [ ]iv) Orthostatic vital sign changes unresponsive to treatment (e.g., fluids) [ ]v) IV inotropic or vasopressor medication required to maintain adequate blood pressure or perfusion [ ] II. Severe heart failure as indicated by ANY ONE of the following(17)(18) [ ]a) Respiratory distress [ ]b) Hypotension [ ]c) Anasarca (refractory to outpatient therapy) [ ]d) Cardiac arrhythmias of immediate concern [ ]e) Myocardial ischemia [ ] III. Cardiac arrhythmias or findings of immediate concern indicated by ANY ONE of the following (19)(20): [ ] a) Heart rhythms that are inherently dangerous or unstable indicated by ANY ONE of the following (21)(22)(23): [ ] i) Resuscitated ventricular fibrillation or cardiac arrest [ ] ii) Ventricular escape rhythm [ ] iii) Sustained ventricular tachycardia (30 seconds or more of ventricular rhythm at greater than 100 beats per minute) [ ] iv) Nonsustained ventricular tachycardia and ANY ONE of the following: [ ] 1) Suspected cardiac ischemia as cause or consequence of ventricular tachycardia [ ] 2) In setting of acute myocarditis [ ] b) Unstable cardiac conduction defects indicated by ANY ONE of the following(23)(24)(25) [ ] i) Type II second-degree atrioventricular block [ ]ii) Third-degree atrioventricular block [ ]iii) New-onset left bundle branch block with suspected myocardial ischemia [ ]c) Any heart rhythm and ANY ONE of the following (21)(22)(26)(27) (28) [ ] i) Continuous long-term ECG monitoring needed (e.g., initiation of drug requiring monitoring for more than 24 hours) [ ] ii) Patient has automatic implanted cardioverter defibrillator that is repeatedly firing, malfunctioning, or in need of immediate adjustment of settings beyond the scope of ambulatory or observation care [ ]d) Heart rhythms of concern due to ANY ONE of the following: [ ] i) Hypotension [ ] ii) Respiratory distress [ ] iii) Association with other significant symptoms (e.g., bradycardia with syncope or ongoing dizziness, supraventricular tachycardia with chest pain (14)(15)(17) [ ] IV. Monitoring for cardiac contusion beyond the scope of observation care needed [A](30)(31)(32) [ ] V. Surgical or device complication (e.g., valve replacement complication , pacemaker dysfunction) (35)(41)(44)(45)(46) [ ] . Inpatient palliative care needed. [B](49) Also use Inpatient Palliative Care Criteria [ ] VII. Nonbacterial thrombotic (marantic) endocarditis (36)(43)(47)(48) [X] VIII. Cardiology condition, symptom, or finding for which emergency and observation care has failed or are not considered appropriate. [ ] IX. Acute valvular disease requiring inpatient as indicated by ANY ONE of the following (41) [ ]a) Acute valvular regurgitation (42) [ ]b) Noninfectious valvulitis (43) [ ]c) Obstructive valve thrombosis [ ]d) Paravalvular leak [ ]e) Other significant valvular disorder remaining after emergency or observation level of care (as appropriate) [ ]X. Pericardial disease requiring inpatient treatment as indicated by ANY ONE of the following (33)(34)(35)(36)(37) [ ]a) Suspected tamponade (38)(39)(40) [ ]b) Hemopericardium [ ]c) Other significant pericardial disorder remaining after emergency or observation level of care (as appropriate) [ ] XI. Cardiac ischemia beyond scope of emergency and observation care. [ ] XII. Hypertension requiring inpatient treatment as indicated by ANY ONE of the following (6)(7)(8) [ ]a) SBP greater than 220 mm Hg or DBP greater than 120 mmHg despite treatment [ ]b) SBP greater than 140 mm Hg or DBP greater than 100 mm Hg with evidence of acute end organ damage as indicated by ANY ONE of the following [ ] i) Encephalopathy [ ] ii) Acute renal failure as indicated by new onset of ANY ONE of the following (9)(10)(11)(12)(13) [ ]1) 3-fold rise in serum creatinine from baseline [ ]2) Serum creatinine greater than 4 mg/dL ( 354 micromoles/L) with acute rise greater than 0.5 mg/dL (44.2 micromoles/L) [ ]3) Reduction of more than 75% in estimated glomerular filtration rate from baseline [ ]4) Estimated glomerular filtration rate less than 35 mL/min/1.73m2 (0.59 mL/sec/1.73m2) in child up to 18 years of age [ ]5) Cessation of urine output indicated by ALL of the following [ ]A. Adequate volume status [ ]B. Inadequate urine output as indicated by ANY ONE of the following [ ]a. Urine output less than 0.3 mL/kg/hr for 24 hours [ ]b. Anuria (urine output less than 0.1 mL/kg/hr) for 12 hours [ ] iii) Aortic dissection [ ] iv) Myocardial Ischemia [ ] v) Left ventricular heart failure [ ]vi) Retinal Hemorrhage [ ]vii) Other significant finding [ ]c) Hypertension in child requiring inpatient treatment as indicated by ALL of the following(14)(15)(16) [ ] i) Outpatient treatment not effective, not available, or not appropriate [ ]ii) SBP or DBP greater than 95th percentile for age [ ]iii) Evidence of acute end organ damage as indicated by ANY ONE of the following [ ]1) Altered mental status [ ]2) Acute renal failure as indicated by new onset of ANY ONE of the following(9)(10)(11)(12)(13) [ ]A. 3-fold rise in serum creatinine from baseline [ ]B. Serum creatinine greater than 4 mg/dL (354 micromoles/L) with acute rise greater than 0.5 mg/dL (44.2 micromoles/L) [ ]C. Reduction of more than 75% in estimated glomerular filtration rate from baseline [ ]D. Estimated glomerular filtration rate less than 35 mL/min/1.73m2 (0.59 mL/sec/1.73m2) in child up to 18 years of age [ ]E. Cessation of urine output indicated by ALL of the following [ ]a. Adequate volume status [ ]b. Inadequate urine output as indicated by ANY ONE of the following [ ]i) Urine output less than 0.3 mL/kg/hr for 24 hours [ ]ii) Anuria ( urine output less than 0.1 mL/kg/hr) for 12 hours [ ]3) Severe headache [ ]4) Visual disturbance [ ]5) Retinal hemorrhage [ ]6) Other significant finding [ ]XIII. Complications of transplanted heart indicated by ANY ONE of the following(61): [ ]a) Acute graft rejection requiring inpatient management (eg, intravenous immunosuppression)(62)(63) [ ]b) Acute graft heart failure indicated by ANY ONE of the following(64): [ ]i) Hemodynamic instability [ ]ii) Cardiac arrhythmias of immediate concern [ ]iii) Pulmonary edema that is very severe (eg, mechanical ventilation needed, imminent or likely, need for 100% oxygen to keep oxygen saturation above 90%) [ ]iv) Pulmonary edema that is persistent as indicated by ALL of the following: [ ]1) New need for oxygen therapy to keep oxygen saturation above 90% (or increased FiO2 need from baseline) [ ]2) Has not improved sufficiently with emergency department or observation care IV diuretics or other heart failure treatments[E] [ ]v) Altered mental status that is severe or persistent [ ]vi) Increased creatinine (new on laboratory test) with reduction of more than 50% in estimated glomerular filtration rate from baseline [ ]vii) Progressively (ongoing) rising creatinine (known from past laboratory test) with reduction of more than 25% in estimated glomerular filtration rate from baseline [ ]viii) Acute renal failure [ ]ix) Acute peripheral ischemia (eg, examination shows pulseless, cool, mottled, or cyanotic extremity) [ ]x) Pulmonary artery catheter monitoring needed [ ]xi) Other sign or symptom of heart failure requiring inpatient treatment (ie, too severe or not responsive to outpatient and observation care treatment) [ ]c) Infection requiring inpatient management (eg, Hemodynamic instability, need for intravenous antimicrobial treatment)(66)(67)(68)(69)(70) [ ]d) Cardiac allograft vasculopathy requiring inpatient management ( eg evidence of cardiac ischemia)(71) [ ]e) Other complication of transplanted heart (eg, stroke, severe pulmonary hypertension, severe valvular dysfunction) requiring inpatient management(72) The original [facility] content created by [facility] has been revised. The portions of the content which have been revised are identified through the use of italic text or in bold, and [facility] [employer] has neither reviewed nor approved the modified material. All other unmodified content is copyright [facility]. Please see references footnoted in the original [facility] [employer] edition 2016 ROXANNA GARCIA Mar 02, 2017 08:35
--- NOTE | 2017-03-02 08:47 | RAD ---
Portable AP upright view CXR: Clinical indications: Chest pain today. Comparison: February 07, 2017. Findings: No acute lung infiltrate or pleural effusion or pulmonary edema or lung mass or pneumothorax is seen. The heart size, pulmonary vasculature, mediastinum and both jo are unremarkable. Old fracture of the lateral aspect of the right eighth rib is seen. Vertebroplasty of the mid thoracic spine is again noted Impression: No new radiographic abnormality is seen.
[2017-03-02] MEDS: BENZONATATE 100 MG CAPSULE. PO SCH ×3 (09:00→20:56)
--- NOTE | 2017-03-02 10:24 | EKG ---
[facility] [address] [place] [address] Test Date: 2017-03-01 Test Time: 22:09:53 Pat Name: ESVIN SCHROEDER Department: Room: Gender: F Geomagnetician: : 1955 Requested By: Justina FISCHER Order Number: [id number] Reading MD: Measurements Intervals [place] Rate: 91 P: 76 NE: 122 QRS: 63 QRSD: 84 T: 73 QT: 338 QTc: 423 Interpretive Statements SINUS RHYTHM QRS(T) CONTOUR ABNORMALITY CONSIDER ANTEROLATERAL MYOCARDIAL DAMAGE RI6.01 No previous ECG available for comparison
[2017-03-02 10:46] VITALS: BP 126/71
--- NOTE | 2017-03-02 11:36 | PDOC2 ---
DALLIN ROSARIO ASSOCIATE PRODUCT MANAGER 03/02/17 1136: CARDIAC CONSULT DATE OF CONSULT Date of Consult DATE: 03/02/17 TIME: 11:13 REASON FOR CONSULT Reason for Consult: chest pain HISTORY OF PRESENT ILLNESS HISTORY OF PRESENT ILLNESS Ms Cash is a 62 year old female with history of coronary disease with PCI and stenting to OM1 in Oct 2015. She had normal perfusion by MPI in March 2016. She presents with chest pain described as a sharp stabbing pain in the distal sternal/epigastric area which radiated to her left arm and back. She reports associated dyspnea and nausea. She does report improvement with change of position but no resolution so presented to ED. She denies any increase with exertion. She states pain has continued intermittently since admission and is improved with pain medication. She reports decrease in activity level due to thoracic spine injury for which she is supposed to have surgery. She has COPD and is chronically on oxygen, denies orthopnea or PND. She denies any significant edema, palpitations, lightheadedness or syncope. PAST MEDICAL HISTORY Past Medical History Remarkable for chronic respiratory failure,oxygen dependant COPD, anxiety; type 2 diabetes; dyslipidemia; hypertension; hypothyroidism; myocardial infarction, CAD with stents, thoracic compression fractures PAST SURGICAL HISTORY Past Surgical History knee replacement , spinal fusion FAMILY HISTORY Family History negative for significant CAD SOCIAL HISTORY Social History prior smoker, no ETOH, no illicit drugs CURRENT MEDICATIONS CURRENT MEDICATIONS Current Medications Medications (Trade) Dose Ordered Sig/Juan Route PRN Reason Start Time Stop Time Status Last Admin Dose Admin Fentanyl Citrate (Fentanyl 2ml Vial) 50 mcg PRN Q15MIN PRN IV PAIN GREATER THAN 3/10 03/01/17 22:30 03/02/17 22:29 03/01/17 22:47 Fentanyl Citrate 50 mcg 50 mcg PRN Q2HR PRN IV PAIN 03/01/17 23:15 03/02/17 23:14 03/02/17 08:50 Sodium Chloride (Iv Sodium Chloride 0.9% 1000ml Bag) 1,000 ml @ 75 mls/hr [id number] IV 03/01/17 23:15 03/02/17 23:14 03/02/17 00:13 ALLERGIES ALLERGIES: Coded Allergies: levofloxacin (Verified Allergy, Intermediate, Hives, 09/21/15) ROS Review of System as per HPI PHYSICAL EXAM General: Alert, Oriented X3, Cooperative, No acute distress HEENT: Atraumatic, EOMI Lungs: Other (bibasilar crackles) Heart: Regular rate, Normal S1, Normal S2, Other (no gallops) Abdomen: Normal bowel sounds, Soft Extremities: Normal pulses, Other (trace edema) Neuro: Normal speech, Strength at 5/5 X4 ext Psych/Mental Status: Mental status NL, Mood NL VITALS VITALS Vital Signs Date Time Temp Pulse Resp B/P Pulse Ox O2 Delivery O2 Flow Rate FiO2 03/02/17 10:46 97.8 67 18 126/71 98 Nasal Cannula 3.0 97.8 LABS Lab: Laboratory Tests Test 03/01/17 22:15 03/02/17 04:44 White Blood Count 13.9x10^3/uL (4.0-11.0) Red Blood Count 4.31x10^6/uL (3.50-5.40) Hemoglobin 12.9g/dL (12.0-15.5) Hematocrit 39.6% (36.0-47.0) Mean Corpuscular Volume 92fL (79-100) Mean Corpuscular Hemoglobin 30pg (25-35) Mean Corpuscular Hemoglobin Concent 33g/dL (31-37) Red Cell Distribution Width 13.1% (11.5-14.5) Platelet Count 272x10^3/uL (140-400) Neutrophils (%) (Auto) 72% (31-73) Lymphocytes (%) (Auto) 19% (24-48) Monocytes (%) (Auto) 8% (0-9) Eosinophils (%) (Auto) 1% (0-3) Basophils (%) (Auto) 1% (0-3) Neutrophils # (Auto) 10.0x10^3uL (1.8-7.7) Lymphocytes # (Auto) 2.6x10^3/uL (1.0-4.8) Monocytes # (Auto) 1.1x10^3/uL (0.0-1.1) Eosinophils # (Auto) 0.1x10^3/uL (0.0-0.7) Basophils # (Auto) 0.1x10^3/uL (0.0-0.2) Sodium Level 141mmol/L (136-145) Potassium Level 4.1mmol/L (3.5-5.1) Chloride Level 100mmol/L (98-107) Carbon Dioxide Level 36mmol/L (21-32) Anion Gap 5 (6-14) Blood Urea Nitrogen 33mg/dL (7-20) Creatinine 1.7mg/dL (0.6-1.0) Estimated GFR (Cockcroft-Gault) 30.4 Glucose Level 264mg/dL (70-99) Calcium Level 9.4mg/dL (8.5-10.1) Troponin I Quantitative < 0.017ng/mL (0.000-0.055) < 0.017ng/mL (0.000-0.055) AR-Nau-I-Type Natriuretic Peptide 261pg/mL (0-124) IMAGES IMAGES CXR - Findings: No acute lung infiltrate or pleural effusion or pulmonary edema or lung mass or pneumothorax is seen. The heart size, pulmonary vasculature, mediastinum and both jo are unremarkable. Old fracture of the lateral aspect of the right eighth rib is seen. Vertebroplasty of the mid thoracic spine is again noted Impression: No new radiographic abnormality is seen. EKG EKG sinus rhythm, early transition, no acute ischemic changes ECHOCARDIOGRAM ECHOCARDIOGRAM 03/02/14 The left ventricle is normal size. The left ventricular systolic function is normal. The Ejection Fraction is 55-60 %. There is no significant aortic valvular stenosis. Doppler and Color Flow revealed no significant aortic regurgitation. Doppler and Color-flow revealed mild mitral regurgitation. There is no mitral valve stenosis. Doppler and Color Flow revealed trace to mild tricuspid regurgitation. There is no evidence of significant pericardial effusion. STRESS TEST STRESS TEST 04/20/16 Conclusion 1. Regadenoson cardioisotope stress test showed diaphragmatic attenuation artifact without any definite evidence for ischemia or infarct. 2. Normal left ventricular systolic function with ejection fraction calculated at 64%. 3. Low risk for cardiac events. HEART CATH HEART CATH 11/19/15 CORONARY ANGIOGRAPHY: LM is a large caliber vessel with normal angiographic appearance LAD is a large caliber vessel with mild luminal irregularities of up to 30% D1 is a moderate caliber vessel with normal angiographic appearance LCx is a dominant vessel with mild luminal irregularities. OM1 is a large caliber vessel with an ostial 80% stenosis suggestive of acute plaque rupture with DELTA 3 flow. LPDA is a small caliber vessel with mild diffuse irregularities. Conclusion 1. Mildly elevated left ventricular filling pressure. 2. Low normal LV function. EF 50% 3. Mild MR 4. One vessel CAD s/p PCI to the OM1 with implantation of a Integrity BMS (3.0/ 18, dilated up to a 3.25mm stent). ASSESSMENT/PLAN ASSESSMENT/PLAN 1. Chest pain - atypical. CE negative x 2, No acute EKG changes. normal perfusion by MPI within the last year. resume home medications. monitor. Consider repeat MPI and echo as outpatient if no significant changes is status. 2. CAD with PCI and stent to OM1 in October 2015. Continue medical mgmt. 3. COPD - mgmt per PCP 4. Hypertension controlled - continue home meds 5. Hyperlipidemia. check lipids and continue home meds 6. Diabetes mellitus as per the patient's primary physician. Problems: THONG FORTE MD 03/02/17 1444: CARDIAC CONSULT ALLERGIES ALLERGIES: Coded Allergies: levofloxacin (Verified Allergy, Intermediate, Hives, 09/21/15) ASSESSMENT/PLAN ASSESSMENT/PLAN Patient seen and examined. Agree with BOTTLING EQUIPMENT SALES REPRESENTATIVE's assessment and plan. Chest pain with atypical features and most probably musculoskeletal. Myocardial infarction being ruled out. Lexiscan nuclear stress test in 2016 did not show any significant ischemia. CAD status appears stable overall. Continue current medical regimen. Thank you for your consultation. Problems: DALLIN ROSARIO APRN Mar 02, 2017 11:36 THONG FORTE MD Mar 02, 2017 14:44
[2017-03-02 12:10] LABS: CHOLESTEROL/HDL RATIO 4.1
[2017-03-02] MEDS: IPRATRPIUM/ALBUTEROL 0.5/2.5MG 3 ML NEBU. IH SCH ×3 (12:31→20:13)
[2017-03-02] MEDS: BUDESONIDE 0.5 MG/2 ML NEBU. NEB SCH ×2 (12:31→20:13)
--- NOTE | 2017-03-02 12:36 | PDOC ---
OBJECTIVE Vital Signs Vital Signs Date Time Temp Pulse Resp B/P Pulse Ox O2 Delivery O2 Flow Rate FiO2 03/02/17 10:46 97.8 67 18 126/71 98 Nasal Cannula 3.0 97.8 03/02/17 09:20 98 Nasal Cannula 3.0 03/02/17 08:50 98 Nasal Cannula 3.0 03/02/17 08:00 Nasal Cannula 3.0 03/02/17 07:41 97.8 65 20 110/65 98 Nasal Cannula 3.0 97.8 03/02/17 03:32 22 03/02/17 03:02 22 Nasal Cannula 3.0 03/02/17 02:52 97.5 72 20 115/70 98 Nasal Cannula 3.0 97.5 03/01/17 23:53 Nasal Cannula 3.0 03/01/17 23:28 97.9 73 18 102/47 97 Nasal Cannula 3.0 97.9 03/01/17 23:28 97.9 73 18 102/47 97 Room Air 3.0 97.9 03/01/17 23:00 80 28 124/100 97 Nasal Cannula 3 03/01/17 22:30 82 30 127/71 96 Nasal Cannula 3 03/01/17 22:14 98.6 90 24 152/87 96 Nasal Cannula 3 98.6 I & O Intake and Output 03/02/17 07:00 Intake Total 240 ml Output Total 300 ml Balance -60 ml Intake Tube Feeding 240 ml Output Urine Total 300 ml ASSESSMENT/PLAN Assessment/Plan H&P dictated Problems: COMMENT Lab Laboratory Tests Test 03/01/17 22:15 03/02/17 04:44 03/02/17 10:45 White Blood Count 13.9x10^3/uL (4.0-11.0) Red Blood Count 4.31x10^6/uL (3.50-5.40) Hemoglobin 12.9g/dL (12.0-15.5) Hematocrit 39.6% (36.0-47.0) Mean Corpuscular Volume 92fL (79-100) Mean Corpuscular Hemoglobin 30pg (25-35) Mean Corpuscular Hemoglobin Concent 33g/dL (31-37) Red Cell Distribution Width 13.1% (11.5-14.5) Platelet Count 272x10^3/uL (140-400) Neutrophils (%) (Auto) 72% (31-73) Lymphocytes (%) (Auto) 19% (24-48) Monocytes (%) (Auto) 8% (0-9) Eosinophils (%) (Auto) 1% (0-3) Basophils (%) (Auto) 1% (0-3) Neutrophils # (Auto) 10.0x10^3uL (1.8-7.7) Lymphocytes # (Auto) 2.6x10^3/uL (1.0-4.8) Monocytes # (Auto) 1.1x10^3/uL (0.0-1.1) Eosinophils # (Auto) 0.1x10^3/uL (0.0-0.7) Basophils # (Auto) 0.1x10^3/uL (0.0-0.2) Sodium Level 141mmol/L (136-145) Potassium Level 4.1mmol/L (3.5-5.1) Chloride Level 100mmol/L (98-107) Carbon Dioxide Level 36mmol/L (21-32) Anion Gap 5 (6-14) Blood Urea Nitrogen 33mg/dL (7-20) Creatinine 1.7mg/dL (0.6-1.0) Estimated GFR (Cockcroft-Gault) 30.4 Glucose Level 264mg/dL (70-99) Calcium Level 9.4mg/dL (8.5-10.1) Troponin I Quantitative < 0.017ng/mL (0.000-0.055) < 0.017ng/mL (0.000-0.055) < 0.017ng/mL (0.000-0.055) LC-Hvq-G-Type Natriuretic Peptide 261pg/mL (0-124) Triglycerides Level 208mg/dL (0-150) Cholesterol Level 176mg/dL (0-200) LDL Cholesterol, Calculated 91mg/dL (0-100) VLDL Cholesterol, Calculated 42mg/dL (0-40) HDL Cholesterol 43mg/dL (40-60) Cholesterol/HDL Ratio 4.1 AURA TEJEDA MD Mar 02, 2017 12:36
--- NOTE | 2017-03-02 13:14 | HP ---
ADMIT DATE: 03/01/2017 The patient is in room #244. HISTORY OF PRESENT ILLNESS: The patient is a 62-year-old lady, who presented to the Emergency Room due to an acute episode of chest pain. She stated that she had a friend visiting and she had walked around the apartment a few times after her friend left. She sat down and felt chest pain in the central chest. The pain was sharp and lasted about 10 minutes. She denied any associated nausea, vomiting, diaphoresis, or lightheadedness. She does have chronic dyspnea, and may be her shortness of breath was a little worse. She stated that she had MS before and it felt exactly like she had felt then and decided to come to the Emergency Room to get checked. She recently was discharged on antibiotic and her taper steroid due to bronchitis and chronic obstructive pulmonary disease exacerbation. PAST MEDICAL HISTORY: Significant for peripheral neuropathy, coronary artery disease, previous history of congestive heart failure, hyperlipidemia, hypertension, DVT, COPD, emphysema, asthma, previous history of pulmonary embolus, pneumonia, sleep apnea, gastroesophageal reflux disease, irritable bowel syndrome, previous history of cholecystectomy, hysterectomy, tubal ligation, history of osteoarthritis, recurrent UTIs, history of left knee replacement twice and bilateral carpal tunnel repair. She is diabetic with a history of hypothyroidism, depression, and anxiety. SOCIAL HISTORY: She quit smoking, but had many years of smoking. She denies use of alcohol or drugs. REVIEW OF SYSTEMS: CONSTITUTIONAL: Denies fever or chills. EYES: Denies visual changes. HEENT: Denies nasal congestion or sore throat. RESPIRATORY: She does have chronic shortness of breath and requires oxygen at home. She also has chronic bronchitis and morning cough due to a previous history of smoking. CARDIOVASCULAR: As above. GASTROINTESTINAL: No abdominal pain, nausea, or vomiting. GENITOURINARY: No dysuria. She does have stress incontinence. MUSCULOSKELETAL: She does have arthritis as mentioned above. NEUROLOGIC: She denies headache or any focal weakness. PHYSICAL EXAMINATION: GENERAL: She is alert and oriented, in no acute distress. HEENT: Normocephalic, atraumatic. Tympanic membranes are clear. NECK: Supple. HEART: Regular rate and rhythm. LUNGS: With decreased breath sounds bilaterally. No wheezes at this time. ABDOMEN: Soft, nontender. No organomegaly, no masses, no bruits, and no ascites. EXTREMITIES: No edema, clubbing, or cyanosis. NEUROLOGICAL: Intact. IMPRESSION: 1. Chest pain. The patient is admitted. Serial cardiac enzymes are done. Cardiology consult. 2. Chronic obstructive pulmonary disease, seems to be stable at the present time. 3. Diabetes mellitus. 4. Hypertension with hypertensive cardiovascular disease. 5. Hyperlipidemia. 6. Previous history of deep venous thrombosis. RECOMMENDATIONS: We will proceed with DVT prophylaxis. If her symptoms are improved and her cardiac enzymes are negative, she will be discharged in the morning to follow up with Cardiology as outpatient for outpatient stress testing. AURA TEJEDA MD DR: MONIQUE/paul JOB#: [id number] / [id number]
[2017-03-02] MEDS: SUCRALFATE 1 GM TABLET. PO SCH ×3 (13:23→20:56)
[2017-03-02] MEDS: buPROPion XL 150 MG TAB.ER.24H. PO SCH (13:23)
[2017-03-02] MEDS: ISOSORBIDE MONONITRATE ER 30 MG TAB.ER.24H PO SCH (13:24)
[2017-03-02] MEDS: LEVOTHYROXINE 88 MCG TABLET PO SCH (13:24)
[2017-03-02] MEDS: ASPIRIN ENTERIC COATED 81 MG TABLET.DR. PO SCH (13:24)
[2017-03-02] MEDS: CITALOPRAM 20 MG TABLET. PO SCH (13:24)
[2017-03-02] MEDS: FENOFIBRATE,MICRONIZED 134 MG CAPSULE PO SCH (13:25)
[2017-03-02] MEDS: LOSARTAN POTASSIUM 50 MG TABLET. PO SCH (13:25)
[2017-03-02] MEDS: PRASUGREL 10 MG TABLET. PO SCH (13:25)
[2017-03-02] MEDS: METOPROLOL SUCC 24HR ER 25 MG TAB.ER.24H. PO SCH (13:25)
[2017-03-02] MEDS: PANTOPRAZOLE 40 MG TABLET.DR. PO SCH (13:25)
[2017-03-02 14:30] VITALS: BP 128/74
[2017-03-02] MEDS: HYDROCODONE/APAP 5/325MG TABLET. PO PRN (15:28)
[2017-03-02 19:00] VITALS: BP 105/57
[2017-03-02] MEDS ORDERED: MONTELUKAST SODIUM 10 MG TABLET. PO SCH (21:00)
[2017-03-02] MEDS ORDERED: ATORVASTATIN CALCIUM 20 MG TABLET PO SCH (21:00)
[2017-03-02 23:00] VITALS: BP 109/63
[2017-03-03 03:00] VITALS: BP 105/78
[2017-03-03] MEDS: LEVOTHYROXINE 88 MCG TABLET PO SCH (06:16)
[2017-03-03] MEDS: IPRATRPIUM/ALBUTEROL 0.5/2.5MG 3 ML NEBU. IH SCH ×3 (07:51→15:29)
[2017-03-03] MEDS: BUDESONIDE 0.5 MG/2 ML NEBU. NEB SCH (07:52)
[2017-03-03 07:55] VITALS: BP 131/67
[2017-03-03] MEDS: PANTOPRAZOLE 40 MG TABLET.DR. PO SCH (08:34)
[2017-03-03] MEDS: SUCRALFATE 1 GM TABLET. PO SCH ×2 (08:34→12:21)
[2017-03-03] MEDS: ISOSORBIDE MONONITRATE ER 30 MG TAB.ER.24H PO SCH (08:34)
[2017-03-03] MEDS: buPROPion XL 150 MG TAB.ER.24H. PO SCH (08:34)
[2017-03-03] MEDS: PRASUGREL 10 MG TABLET. PO SCH (08:35)
[2017-03-03] MEDS: CITALOPRAM 20 MG TABLET. PO SCH (08:35)
[2017-03-03] MEDS: METOPROLOL SUCC 24HR ER 25 MG TAB.ER.24H. PO SCH (08:35)
[2017-03-03] MEDS: BENZONATATE 100 MG CAPSULE. PO SCH ×2 (08:35→14:36)
[2017-03-03] MEDS: HYDROCODONE/APAP 5/325MG TABLET. PO PRN (08:35)
[2017-03-03] MEDS: ASPIRIN ENTERIC COATED 81 MG TABLET.DR. PO SCH (08:35)
[2017-03-03] MEDS: FENOFIBRATE,MICRONIZED 134 MG CAPSULE PO SCH (08:36)
[2017-03-03] MEDS ORDERED: DEXTROSE 50% 25 GM / 50ML DISP.SYRIN. IV PRN (09:15)
[2017-03-03 10:59] VITALS: BP 137/47
--- NOTE | 2017-03-03 11:21 | PDOC ---
PROGRESS NOTES Subjective Subjective Feels better, no new complaints Objective Objective Vital Signs Date Time Temp Pulse Resp B/P Pulse Ox O2 Delivery O2 Flow Rate FiO2 03/03/17 10:59 97.9 75 22 137/47 97 Nasal Cannula 3.0 97.9 Intake and Output 03/03/17 07:00 Intake Total 1600 ml Output Total 1700 ml Balance -100 ml Intake Oral 1600 ml Output Urine Total 1700 ml Physical Exam Abdomen: Normal bowel sounds, Soft Heart: Regular rate, Normal S1, Normal S2, Other (no gallops) Extremities: Normal pulses, Other (trace edema) General: Alert, Oriented X3, Cooperative, No acute distress HEENT: Atraumatic, EOMI Lungs: Other (bibasilar crackles) MUSCULOSKELETAL: Full range of motion without pain Neuro: Normal speech, Strength at 5/5 X4 ext Psych/Mental Status: Mental status NL, Mood NL Assessment Assessment 1. Chest pain - atypical and most probably musculoskeletal. GA ruled out. MPI 2015 negative for ischemia. 2. CAD with PCI and stent to OM1 in October 2015. Continue medical mgmt. 3. COPD - mgmt per PCP 4. Hypertension controlled - controlled 5. Hyperlipidemia. statins 6. Diabetes mellitus as per the patient's primary physician. Plan Plan of Care Problems Medical Problems: (1) Chest pain Status: Acute Comment Review of Relevant I have reviewed the following items haroldo (where applicable) has been applied. Medications Current Medications Atorvastatin Calcium (Lipitor) 20 mg QHS PO Last administered on 03/02/17 20:56 ; Start 03/02/17 at 21:00 Dextrose (Dextrose 50%-Water Syringe) 12.5 gm PRN Q15MIN PRN IV SEE COMMENTS; Start 03/03/17 at 09:15 Insulin Aspart (Novolog) 0-7 UNITS TIDWMEALS SQ ; Start 03/03/17 at 12:00 Losartan Potassium (Cozaar) 100 mg DAILY@14 PO Last administered on 03/02/17 13 :25; Start 03/02/17 at 14:00 Montelukast Sodium (Singulair) 10 mg QHS PO Last administered on 03/02/17 20:56 ; Start 03/02/17 at 21:00 Sucralfate (Carafate) 1 gm QIDACHS PO Last administered on 03/03/17 08:34; Start 03/02/17 at 11:30 Vitals/I & O Vital Sign - Last 24 Hours 03/02/17 03/02/17 03/02/17 03/02/17 12:35 13:24 13:25 13:25 Pulse 67 67 67 B/P 126/71 126/71 126/71 Pulse Ox 94 O2 Delivery Nasal Cannula O2 Flow Rate 3.0 03/02/17 03/02/17 03/02/17 03/02/17 14:30 15:28 17:11 19:00 Temp 97.9 98.2 97.9 98.2 Pulse 84 83 Resp 17 B/P 128/74 105/57 Pulse Ox 97 97 97 96 O2 Delivery Nasal Cannula Nasal Cannula Nasal Cannula Nasal Cannula O2 Flow Rate 3.0 3.0 3.0 3.0 03/02/17 03/02/17 03/02/17 03/02/17 20:00 20:15 20:15 23:00 Temp 98.1 98.1 Pulse 70 Resp 18 B/P 109/63 Pulse Ox 93 93 97 O2 Delivery Nasal Cannula Nasal Cannula Nasal Cannula Nasal Cannula O2 Flow Rate 3.0 2.5 2.5 3.0 03/03/17 03/03/17 03/03/17 03/03/17 03:00 07:50 07:55 08:00 Temp 97.5 98.7 97.5 98.7 Pulse 79 72 Resp 20 18 B/P 105/78 131/67 Pulse Ox 98 96 O2 Delivery Nasal Cannula Nasal Cannula Nasal Cannula Nasal Cannula O2 Flow Rate 3.0 2.5 3.0 3.0 03/03/17 03/03/17 03/03/17 03/03/17 08:34 08:35 08:35 09:35 Pulse 72 72 B/P 131/67 131/67 Pulse Ox 96 96 O2 Delivery Nasal Cannula Nasal Cannula O2 Flow Rate 3.0 3.0 03/03/17 10:59 Temp 97.9 97.9 Pulse 75 Resp 22 B/P 137/47 Pulse Ox 97 O2 Delivery Nasal Cannula O2 Flow Rate 3.0 Intake and Output 03/02/17 03/02/17 03/03/17 15:00 23:00 07:00 Intake Total 1200 ml 400 ml Output Total 900 ml 400 ml 400 ml Balance -900 ml 800 ml 0 ml THONG FORTE MD Mar 03, 2017 11:21
[2017-03-03] MEDS ORDERED: INSULIN ASPART 300 UNITS/3 ML INSULN.PEN SQ SCH (12:00)
[2017-03-03 14:25] VITALS: BP 144/74
[2017-03-03 14:36] VITALS: BP 144/74
[2017-03-03] MEDS: LOSARTAN POTASSIUM 50 MG TABLET. PO SCH (14:36)
--- NOTE | 2017-03-03 14:58 | PDOC ---
SUBJECTIVE Subjective no further chest pain, feels better OBJECTIVE Vital Signs Vital Signs Date Time Temp Pulse Resp B/P Pulse Ox O2 Delivery O2 Flow Rate FiO2 03/03/17 14:36 81 144/74 03/03/17 14:25 97.8 81 21 144/74 96 Nasal Cannula 3.0 97.8 03/03/17 11:53 98 Nasal Cannula 2.5 03/03/17 10:59 97.9 75 22 137/47 97 Nasal Cannula 3.0 97.9 03/03/17 09:35 96 Nasal Cannula 3.0 03/03/17 08:35 72 131/67 03/03/17 08:35 96 Nasal Cannula 3.0 03/03/17 08:34 72 131/67 03/03/17 08:00 Nasal Cannula 3.0 03/03/17 07:55 98.7 72 18 131/67 96 Nasal Cannula 3.0 98.7 03/03/17 07:50 98 Nasal Cannula 2.5 03/03/17 03:00 97.5 79 20 105/78 Nasal Cannula 3.0 97.5 03/02/17 23:00 98.1 70 18 109/63 97 Nasal Cannula 3.0 98.1 03/02/17 20:15 93 Nasal Cannula 2.5 03/02/17 20:15 93 Nasal Cannula 2.5 03/02/17 20:00 Nasal Cannula 3.0 03/02/17 19:00 98.2 83 17 105/57 96 Nasal Cannula 3.0 98.2 03/02/17 17:11 97 Nasal Cannula 3.0 03/02/17 15:28 97 Nasal Cannula 3.0 I & O Intake and Output 03/03/17 07:00 Intake Total 1600 ml Output Total 1700 ml Balance -100 ml Intake Oral 1600 ml Output Urine Total 1700 ml PHYSICAL EXAM Physical Exam no change ASSESSMENT/PLAN Assessment/Plan home today f/u PCP and C.V out pt Problems: COMMENT Lab Laboratory Tests Test 03/03/17 11:09 Glucose (Fingerstick) 207mg/dL (70-99) AURA TEJEDA MD Mar 03, 2017 14:58
--- NOTE | 2017-03-03 15:02 | PDOC3 ---
Discharge Summary* Date of Admission: Mar 01, 2017 Date of Discharge: Mar 03, 2017 Admitting Diagnosis Problems Medical Problems: (1) Chest pain Status: Acute Final Diagnosis 1. Chest pain. not cardiac enzymes neg, possible anxiety 2. Chronic obstructive pulmonary disease, stable 3. Diabetes mellitus. 4. Hypertension with hypertensive cardiovascular disease. 5. Hyperlipidemia. 6. Previous history of deep venous thrombosis. Problems Medical Problems: (1) Chest pain Status: Acute CONSULTS cardiology Procedures CXR, serial enzymes Brief Hospital Course Ms. Cash is a 62 old [sex] who presented with [ ] Disposition/Orders: D/C to Home CONDITION AT DISCHARGE: Improved Diet: Cardiac, Consistent Carbohydrate Scheduled Amlodipine Besylate (Amlodipine Besylate) 5 MG PO DAILY Aspirin (Aspir 81) 1 TAB PO DAILY (Reported) Atorvastatin Calcium (Atorvastatin Calcium) 20 MG PO DAILY (Reported) Benzonatate (Benzonatate) 100 MG PO [id number] Bupropion Hcl (Bupropion Xl) 300 MG PO DAILY (Reported) Citalopram Hydrobromide (Citalopram Hbr) 40 MG PO HS (Reported) Doxycycline Hyclate (Doxycycline Hyclate) 100 MG PO BID Esomeprazole Magnesium (Nexium Capsule) 1 CAP PO DAILY (Reported) Fenofibrate Nanocrystallized (Fenofibrate) 160 MG PO DAILY (Reported) Fluticasone/Vilanterol (Breo Ellipta 100-25 Mcg Inh) 1 PUFF IH DAILY (Reported) Ipratropium/Albuterol Sulfate (Duoneb 0.5 Mg-3 Mg/3 Ml Soln) 3 ML IH QID ( Reported) Isosorbide Mononitrate (Isosorbide Mononitrate Er) 30 MG PO DAILY (Reported) Levothyroxine Sodium (Levothyroxine Sodium) 88 MCG PO DAILY06 (Reported) Losartan Potassium (Cozaar) 100 MG PO DAILY@14 Metformin Hcl (Metformin Hcl) 1,000 MG PO BID (Reported) Metoprolol Succinate (Metoprolol Succinate ( Xl )) 2 TAB PO DAILY (Reported) Montelukast Sodium (Montelukast Sodium Tablet) 10 MG PO QHS Prasugrel Hcl (Effient) 10 MG PO DAILYWBKFT Prednisone (Prednisone) 10 MG PO UD Sucralfate (Carafate) 1 GM PO QIDACHS Scheduled PRN Albuterol Sulfate (Ventolin Hfa Inhaler) 2 PUFF INH PRN QID PRN PRN SHORTNESS OF BREATH (Reported) Alprazolam (Xanax) 0.25 MG PO PRN TID PRN PRN ANXIETY / AGITATION (Reported) Cyclobenzaprine Hcl (Cyclobenzaprine Hcl) 1 TAB PO TID PRN PRN MUSCLE SPASMS Hydrocodone Bit/Acetaminophen (Hydrocodone-Apap 5-325 ) 1 TAB PO PRN Q8HRS PRN PRN PAIN (Reported) FOLLOW UP APPOINTMENT: Dr Hoang 1 week Time Spent Total time spent with patient [] minutes for coordination of care, counseling, and education. AURA TEJEDA MD Mar 03, 2017 15:02
--- NOTE | 2017-03-04 08:36 | CARD ---
APPROVED REPORT EXAM: Two-dimensional and M-mode echocardiogram with Doppler and color Doppler. Other Information Quality : LimitedHR: 72bpm Rhythm : NSR INDICATION Chest Pain 2D DIMENSIONS RVDd2.5 (2.9-3.5cm)Left Atrium(2D)4.3 (1.6-4.0cm) IVSd2.9 (0.7-1.1cm)Aortic Root(2D)2.6 (2.0-3.7cm) LVDd4.2 (3.9-5.9cm)LVOT Diameter2.1 (1.8-2.4cm) PWd1.1 (0.7-1.1cm)LVDs3.1 (2.5-4.0cm) FS (%) 25.8 %SV39.7 ml LVEF(%)51.1 (>50%) Aortic Valve AoV Peak Steve.167.3cm/sAoV VTI32.3cm AO Peak GR.11.2mmHgLVOT VTI 20.85cm AO Mean GR.5mmHg Mitral Valve MV E Rihvtqvz25.2cm/sMV E Peak Gr.5mmHg MV DECEL [id number] A Cirevgsh72.9cm/s MV E Mean Gr.2mmHgE/A Ratio0.8 MV A [id number] TDI Lateral E' P. V10.23cm/sMedial E' P. V9.20cm/s E/Lateral E'7.9E/Medial E'8.8 Tricuspid Valve TR P. Matjcfdz380lf/sRAP FREBYDOE5pkNg TR Peak Gr.56mmHg Pulmonary Vein S1 Cukgzkuy93.5cm/sS2 Pfnhkers42.98cm/s D2 Uplqxflh39.0cm/sPVa fjpqwkzx87ffit LEFT VENTRICLE There is normal left ventricular wall thickness. The left ventricular systolic function is normal. Th e Ejection Fraction is 55-60%. There is normal LV segmental wall motion. Transmitral Doppler flow pat tern is Grade I-abnormal relaxation pattern. RIGHT VENTRICLE The right ventricle is normal size. There is normal right ventricular wall thickness. The right ventr icular systolic function is normal. ATRIA The left atrium size is normal. The right atrium size is normal. The interatrial septum is intact wit h no evidence for an atrial septal defect or patent foramen ovale as noted on 2-D or Doppler imaging. AORTIC VALVE The aortic valve is not well visualized. The aortic valve is mildly sclerotic. Doppler and Color Flow revealed trace aortic regurgitation. There is no significant aortic valvular stenosis. MITRAL VALVE The mitral valve is not well visualized. The mitral valve leaflets are thickened. There is no evidenc e of mitral valve prolapse. There is no mitral valve stenosis. Doppler and Color Flow revealed mild m itral regurgitation. TRICUSPID VALVE Doppler and Color Flow revealed mild tricuspid regurgitation. The pulmonary artery systolic pressure is estimated at 59 mmHg. There is moderate pulmonary hypertension. PULMONIC VALVE The pulmonic valve is not well visualized. Doppler and Color Flow revealed no pulmonic valvular regur gitation. There is no pulmonic valvular stenosis. GREAT VESSELS The aortic root is normal in size. The ascending aorta is normal in size. The pulmonary artery is nor mal. The IVC is normal in size and collapses >50% with inspiration. PERICARDIAL EFFUSION There is no evidence of significant pericardial effusion. Critical Notification Critical Value: No <Conclusion> The left ventricular systolic function is normal. The Ejection Fraction is 55-60%. There is normal LV segmental wall motion. Transmitral Doppler flow pattern is Grade I-abnormal relaxation pattern. Trace aortic regurgitation. Mild tricuspid regurgitation. The pulmonary artery systolic pressure is estimated at 59 mmHg. There is moderate pulmonary hypertension. There is no evidence of significant pericardial effusion.
== END 2017-03-03 16:45 | disposition home or self-care (01) | DRG 884 ==
LOC: ER 22:05 → 2 SOUTH 22:30
PROVIDERS: ADMIT Internal Medicine; ATTEND Internal Medicine
DX: F06.4 Anxiety disorder due to known physiological condition (principal); J44.1 Chronic obstructive pulmonary disease with (acute) exacerbation; J96.10 Chronic respiratory failure, unspecified whether with hypoxia or hypercapnia; R07.89 Other chest pain; I11.0 Hypertensive heart disease with heart failure; E03.9 Hypothyroidism, unspecified; E11.69 Type 2 diabetes mellitus with other specified complication; E78.00 Pure hypercholesterolemia, unspecified; E78.5 Hyperlipidemia, unspecified; Z96.652 Presence of left artificial knee joint; G47.30 Sleep apnea, unspecified; I25.10 Atherosclerotic heart disease of native coronary artery without angina pectoris; I34.0 Nonrheumatic mitral (valve) insufficiency; I50.9 Heart failure, unspecified; J45.909 Unspecified asthma, uncomplicated; K21.9 Gastro-esophageal reflux disease without esophagitis; K58.9 Irritable bowel syndrome, unspecified; Z86.711 Personal history of pulmonary embolism; Z86.718 Personal history of other venous thrombosis and embolism; Z87.440 Personal history of urinary (tract) infections; Z87.891 Personal history of nicotine dependence; Z90.49 Acquired absence of other specified parts of digestive tract; Z95.5 Presence of coronary angioplasty implant and graft; Z98.1 Arthrodesis status; I25.2 Old myocardial infarction; Z99.81 Dependence on supplemental oxygen; Z90.710 Acquired absence of both cervix and uterus; Z88.1 Allergy status to other antibiotic agents
CPT/HCPCS: 36415; 71010; 80048; 80061; 82947; 83880; 84484; 85027; 93005; 93306; 94250; 94640; 94760; J1815; J3010; J7030; J7620

== ENCOUNTER → 2017-03-05 | Day surgery (SDC) | payer BC, MEDICAID ==
[~2017-03-05] VITALS: Ht 162.6 cm; Wt 91.6 kg
[~2017-03-05] MED LIST changes: +DULO60CA6 PO; +HYDROmorphone 2 MG/ML VIAL IV PRN; +IV RINGERS,LACTATED 1000ML 1,000 ML IV SCH; +KETAMINE HCL 500 MG/10 ML VIAL. ONE; +LIDOCAINE 1% 1 ML SYRINGE. ID PRN; +METF-620 PO; -METF10002 PO; +MIDAZOLAM HCL/PF 2 MG/2 ML VIAL. ONE; +MORPHINE SULFATE 2 MG/ML DISP.SYRIN. IV PRN; -PRAS10TA4 PO; +PRAS10TA9 PO; +PROCHLORPERAZINE 10 MG/2 ML VIAL. IV PRN; +PROPOFOL 20 ML IV ONE; +fentaNYL PF VIAL 100 MCG/2 ML VIAL IV PRN
[2017-03-05 11:51] VITALS: BP 186/109
== END | disposition home or self-care (01) ==
LOC: SURG 12:00
PROVIDERS: ATTEND Radiology Vascular & Interventional Radiology
DX: S22.050A Wedge compression fracture of T5-T6 vertebra, initial encounter for closed fracture (principal); X58.XXXA Exposure to other specified factors, initial encounter; Y93.9 Activity, unspecified; Y92.9 Unspecified place or not applicable; E78.00 Pure hypercholesterolemia, unspecified; I10 Essential (primary) hypertension; J44.9 Chronic obstructive pulmonary disease, unspecified; J45.909 Unspecified asthma, uncomplicated; E66.9 Obesity, unspecified; K21.9 Gastro-esophageal reflux disease without esophagitis; E11.9 Type 2 diabetes mellitus without complications; F41.9 Anxiety disorder, unspecified; F32.9 Major depressive disorder, single episode, unspecified; E03.9 Hypothyroidism, unspecified; Z90.49 Acquired absence of other specified parts of digestive tract; Z90.710 Acquired absence of both cervix and uterus; Z98.51 Tubal ligation status; Z96.652 Presence of left artificial knee joint
CPT/HCPCS: 72146; J2250; J2704; J3490

== ENCOUNTER → 2017-03-05 | Outpatient (CLI) | payer BC, MEDICAID ==
[~2017-03-05] MED LIST changes: +ESMOLOL 100 MG/10 ML VIAL. IV ONE; -HYDROmorphone 2 MG/ML VIAL IV PRN; -IV RINGERS,LACTATED 1000ML 1,000 ML IV SCH; -KETAMINE HCL 500 MG/10 ML VIAL. ONE; -LIDOCAINE 1% 1 ML SYRINGE. ID PRN; -MIDAZOLAM HCL/PF 2 MG/2 ML VIAL. ONE; -MORPHINE SULFATE 2 MG/ML DISP.SYRIN. IV PRN; -PROCHLORPERAZINE 10 MG/2 ML VIAL. IV PRN; -PROPOFOL 20 ML IV ONE; -fentaNYL PF VIAL 100 MCG/2 ML VIAL IV PRN
--- NOTE | 2017-03-05 14:37 | RAD ---
PROCEDURE MRI thoracic spine without contrast. HISTORY Chronic back pain, possible new compression fracture, previous kyphoplasty TECHNIQUE Multiplanar, multi sequential non contrast MR imaging was performed of the thoracic spine. COMPARISON There is no previous similar exam available. FINDINGS There is some motion degradation. There is acute T5 compression fracture with edema signified by STIR hyperintense and T1 hypointense signal, no significant osseous retropulsion. There has been vertebroplasty at T6. There is mild anterior height loss of T7, T8, and superiorly of T9 not associated with marrow edema or osseous retropulsion. Thoracic cord caliber is within normal limits without obvious or expansile signal abnormality, limited evaluation for subtle signal change due to motion artifact. There is large hemangioma of the T3 vertebral body. Intervertebral disc spaces are relatively preserved. There is no significant thoracic spinal stenosis. There is buckling of the ligamentum flavum at T10-11. Thoracic neural foramina are not significantly narrowed. IMPRESSION There is acute T5 compression fracture, no significant osseous retropulsion. There has been vertebroplasty at T6. There is old, mild height loss of T7, T8, and T9. Electronically signed by: Jorge Neumann MD (Mar 05, 2017 14:35:39)
== END | disposition home or self-care (01) ==
LOC: INTRAD 08:00
PROVIDERS: ATTEND Radiology Vascular & Interventional Radiology
DX: S22.059A Unspecified fracture of T5-T6 vertebra, initial encounter for closed fracture (principal); X58.XXXA Exposure to other specified factors, initial encounter; Y93.9 Activity, unspecified; Y92.9 Unspecified place or not applicable; Y99.9 Unspecified external cause status; E78.00 Pure hypercholesterolemia, unspecified; I10 Essential (primary) hypertension; J44.9 Chronic obstructive pulmonary disease, unspecified; J45.909 Unspecified asthma, uncomplicated; E66.9 Obesity, unspecified; K21.9 Gastro-esophageal reflux disease without esophagitis; Z90.710 Acquired absence of both cervix and uterus; Z98.51 Tubal ligation status; Z96.652 Presence of left artificial knee joint
CPT/HCPCS: 72146; 82947; J3490

== ENCOUNTER 2017-03-12 08:03 | Inpatient (IN) | payer BC, MEDICAID ==
[~2017-03-12] VITALS: Ht 162.6 cm; Wt 93.6 kg
[~2017-03-12 08:03] MED LIST changes: -DULO60CA6 PO; -ESMOLOL 100 MG/10 ML VIAL. IV ONE; -METF-620 PO; +METF10002 PO; +PRAS10TA4 PO; -PRAS10TA9 PO
[2017-03-12] MEDS ORDERED: NITROGLYCERIN SUBLINGUAL 0.4 MG BOTTLE OF 25. SL PRN ×2 (08:30→10:45)
[2017-03-12] MEDS ORDERED: ONDANSETRON PF 4 MG/2 ML VIAL. IV ONE (08:30)
[2017-03-12] MEDS ORDERED: IPRATRPIUM/ALBUTEROL 0.5/2.5MG 3 ML NEBU. NEB ONE (08:30)
[2017-03-12] MEDS ORDERED: MORPHINE SULFATE 4 MG/ML DISP.SYRIN. IV/SQ PRN (08:30)
--- NOTE | 2017-03-12 08:45 | PHYS DOC ---
Past Medical History Past Medical History: Anxiety, COPD, Diabetes-Type II, High Cholesterol, Hypertension, Hyperthyroid, VA Additional Past Medical Histor: EMPHYSEMA Past Surgical History: Angioplasty, Other Additional Past Surgical Histo: left knee replacementx2, spinal fusion, right knee arthroplasty, CTR Alcohol Use: Rarely Drug Use: None Adult General Chief Complaint Chief Complaint: CHEST PAIN-CARDIAC NATURE HPI HPI Patient is a 62 year old female who presents with chest pain. The patient states she had sudden onset of sharp/pressure like pain across her entire chest , while at rest at about 0700 this morning. She states pain is nonradiating, associated with shortness of breath & nausea, denies diaphoresis. Denies fevers /chills, cough, wheezing, lower extremity pain/swelling. Has history of COPD but states this doesn't feel like COPD. History of CAD with cardiac stents, states this feels similar to previous VA. Prototype Model Maker is Dr. Jewell. Also has DM & HTN. Former smoker. History of CAD in both parents. Her PCP is Dr. Colmenares. Review of Systems Review of Systems Constitutional: Denies fever or chills Eyes: Denies change in visual acuity HENT: Denies nasal congestion or sore throat Respiratory: Denies cough, reports shortness of breath Cardiovascular: Reports chest pain, denies edema GI: Reports nausea. Denies abdominal pain, vomiting, or diarrhea Musculoskeletal: Denies back pain or joint pain Integument: Denies rash or skin lesions Neurologic: Denies headache, focal weakness or sensory changes Current Medications Current Medications Current Medications Medications (Trade) Dose Ordered Sig/Juan Start Time Stop Time Status Last Admin Dose Admin Albuterol/ Ipratropium (Duoneb) 3 ml 1X ONCE 03/12/17 08:30 03/12/17 08:31 DC 03/12/17 08:41 3 ML Morphine Sulfate 4 mg PRN Q15MIN PRN 03/12/17 08:30 03/13/17 08:29 Nitroglycerin (Nitrostat) 0.4 mg PRN Q5MIN PRN 03/12/17 08:30 Ondansetron HCl (Zofran) 4 mg 1X ONCE 03/12/17 08:30 03/12/17 08:31 DC 03/12/17 09:06 4 MG Allergies Allergies Allergies Coded Allergies Type Severity Reaction Last Updated Verified levofloxacin Allergy Intermediate Hives 03/05/17 Yes Physical Exam Physical Exam Constitutional: Well developed, well nourished, no acute distress, non-toxic appearance. HENT: Normocephalic, atraumatic, bilateral external ears normal, oropharynx moist, nose normal. Eyes: conjunctiva normal, no discharge. Neck: supple, no stridor. Cardiovascular: RRR, no murmurs, no edema. Lungs & Thorax: LCTAB, no wheezing, no respiratory distress. reproducible tenderness with palpation over the sternum & bilateral anterior chest wall. Abdomen: soft, nontender, nondistended. Skin: Warm, dry, no erythema, no rash. Back: No tenderness. Extremities: No tenderness, no edema. no calf tenderness or swelling. Neurologic: Alert and oriented X 3, no focal deficits noted. Psychologic: Affect normal, judgement normal, mood normal. Current Patient Data Vital Signs Vital Signs Date Time Temp Pulse Resp B/P Pulse Ox O2 Delivery O2 Flow Rate FiO2 03/12/17 08:45 96 Nasal Cannula 3.0 03/12/17 08:03 98.5 80 19 111/56 98.5 Lab Values Laboratory Tests Test 03/12/17 08:50 White Blood Count 6.7x10^3/uL (4.0-11.0) Red Blood Count 3.99x10^6/uL (3.50-5.40) Hemoglobin 11.9g/dL (12.0-15.5) L Hematocrit 36.0% (36.0-47.0) Mean Corpuscular Volume 90fL (79-100) Mean Corpuscular Hemoglobin 30pg (25-35) Mean Corpuscular Hemoglobin Concent 33g/dL (31-37) Red Cell Distribution Width 12.9% (11.5-14.5) Platelet Count 319x10^3/uL (140-400) Neutrophils (%) (Auto) 69% (31-73) Lymphocytes (%) (Auto) 21% (24-48) L Monocytes (%) (Auto) 9% (0-9) Eosinophils (%) (Auto) 1% (0-3) Basophils (%) (Auto) 0% (0-3) Neutrophils # (Auto) 4.6x10^3uL (1.8-7.7) Lymphocytes # (Auto) 1.4x10^3/uL (1.0-4.8) Monocytes # (Auto) 0.6x10^3/uL (0.0-1.1) Eosinophils # (Auto) 0.1x10^3/uL (0.0-0.7) Basophils # (Auto) 0.0x10^3/uL (0.0-0.2) Prothrombin Time 12.7SEC (11.7-14.0) Prothrombin Time INR 1.0 (0.8-1.1) PTT 33SEC (24-38) Sodium Level 139mmol/L (136-145) Potassium Level 3.7mmol/L (3.5-5.1) Chloride Level 98mmol/L (98-107) Carbon Dioxide Level 35mmol/L (21-32) H Anion Gap 6 (6-14) Blood Urea Nitrogen 24mg/dL (7-20) H Creatinine 1.7mg/dL (0.6-1.0) H Estimated GFR (Cockcroft-Gault) 30.4 Glucose Level 233mg/dL (70-99) H Calcium Level 8.8mg/dL (8.5-10.1) Troponin I Quantitative < 0.017ng/mL (0.000-0.055) IQ-Phw-S-Type Natriuretic Peptide 116pg/mL (0-124) Laboratory Tests 03/12/17 08:50 Laboratory Tests 03/12/17 08:50 EKG EKG [] Radiology/Procedures Radiology/Procedures PROCEDURE: CHEST AP ONLY Portable chest, 03/12/2017: History: Chest pain, COPD Comparison is made to a study from 03/01/2017. The heart size and pulmonary vascularity are normal. No pulmonary infiltrates are seen. There is no evidence of pleural fluid. Vertebroplasty change is evident in the midthoracic region. IMPRESSION: No acute cardiopulmonary abnormality is detected. DICTATED and SIGNED BY: LEO QUEVEDO MD DATE: 03/12/17 0848 [] Course & Med Decision Making Course & Med Decision Making Pertinent Labs and Imaging studies reviewed. (See chart for details) The patient presents with chest pain. She received aspirin & nitro en route, gave morphine here for ongoing pain, as well as duoneb treatment. She felt better but had some ongoing chest discomfort. Labs, EKG, CXR with no acute abnormality. Last stress 03/2016, last heart cath 10/2015, no recent provocative testing during previous hospital admission. Discussed with [place], nurse practitioner for cardiology department, & she recommends that patient could have close follow up for outpatient stress if symptoms resolved, or if ongoing symptoms could admit for inpatient stress. The patient did have some ongoing pain & preferred admission. Discussed with Dr. Waldrop who agrees to admit to inpatient status. Cardiology consult to Dr. Miller. The patient is admitted in stable condition. [] Dragon Disclaimer Dragon Disclaimer This electronic medical record was generated, in whole or in part, using a voice recognition dictation system. Departure Departure Impression: Primary Impression: Chest pain Additional Impressions: Hyperglycemia Acute renal failure Disposition: ADMITTED INPATIENT Condition: STABLE Referrals: DMITRI COLMENARES MD (PCP) Problem Qualifiers SANA SLADE MD Mar 12, 2017 08:45
--- NOTE | 2017-03-12 08:51 | RAD ---
Portable chest, 03/12/2017: History: Chest pain, COPD Comparison is made to a study from 03/01/2017. The heart size and pulmonary vascularity are normal. No pulmonary infiltrates are seen. There is no evidence of pleural fluid. Vertebroplasty change is evident in the midthoracic region. IMPRESSION: No acute cardiopulmonary abnormality is detected.
--- NOTE | 2017-03-12 08:58 | EKG ---
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
[2017-03-12 09:09] LABS: BASO % 0 % (0-3); EOS % 1 % (0-3); HEMOGLOBIN 11.9 g/dL (12.0-15.5); LYMPH # 1.4 x10^3/uL (1.0-4.8); LYMPH % 21 % (24-48); MEAN CORPUSCULAR HEMOGLOBIN 30 pg (25-35); MEAN CORPUSCULAR HGB CONC 33 g/dL (31-37); MEAN CORPUSCULAR VOLUME 90 fL (79-100); MONO % 9 % (0-9); NEUT % 69 % (31-73); PLATELET COUNT 319 x10^3/uL (140-400); RED BLOOD COUNT 3.99 x10^6/uL (3.50-5.40); RED CELL DISTRIBUTION WIDTH 12.9 % (11.5-14.5); WHITE BLOOD COUNT 6.7 x10^3/uL (4.0-11.0)
[2017-03-12 09:10] LABS: CALCIUM 8.8 mg/dL (8.5-10.1); CREATININE 1.7 mg/dL (0.6-1.0); GFR 30.4; POTASSIUM 3.7 mmol/L (3.5-5.1)
[2017-03-12 09:15] LABS: PROTHROMBIN TIME PATIENT 12.7 SEC (11.7-14.0)
--- NOTE | 2017-03-12 09:57 | ACF ---
Admit Criteria Forms Admit Criteria Forms Admit Criteria Forms CARDIOLOGY GRG Clinical Indications for Admission to Inpatient Care ( Place 'X' for any and all applicable criteria): Hospital admission is needed for appropriate care of the patient because of ANY ONE of the following (1): [ ] I. Hemodynamic instability as indicated by ALL of the following (1)(2)(3) (4)(5) [ ]a) Vital signs or other findings not as expected for chronic patient condition or baseline [ ]b) Instability indicated by ANY ONE of the following: [ ]i) Hypotension [ ]ii) Symptomatic Tachycardia unresponsive to treatment ( e.g., analgesia, fluids, sedation as indicated) [ ]iii) Inadequate perfusion indicated by ANY ONE of the following: [ ] 1) Lactic acidosis (> 2 mmol/L) [ ] 2) New abnormal capillary refill (> 3 seconds) [ ] 3) Reduced urine output [ ] 4) New altered mental status [ ]iv) Orthostatic vital sign changes unresponsive to treatment (e.g., fluids) [ ]v) IV inotropic or vasopressor medication required to maintain adequate blood pressure or perfusion [ ] II. Severe heart failure as indicated by ANY ONE of the following(17)(18) [ ]a) Respiratory distress [ ]b) Hypotension [ ]c) Anasarca (refractory to outpatient therapy) [ ]d) Cardiac arrhythmias of immediate concern [ ]e) Myocardial ischemia [ ] III. Cardiac arrhythmias or findings of immediate concern indicated by ANY ONE of the following (19)(20): [ ] a) Heart rhythms that are inherently dangerous or unstable indicated by ANY ONE of the following (21)(22)(23): [ ] i) Resuscitated ventricular fibrillation or cardiac arrest [ ] ii) Ventricular escape rhythm [ ] iii) Sustained ventricular tachycardia (30 seconds or more of ventricular rhythm at greater than 100 beats per minute) [ ] iv) Nonsustained ventricular tachycardia and ANY ONE of the following: [ ] 1) Suspected cardiac ischemia as cause or consequence of ventricular tachycardia [ ] 2) In setting of acute myocarditis [ ] b) Unstable cardiac conduction defects indicated by ANY ONE of the following(23)(24)(25) [ ] i) Type II second-degree atrioventricular block [ ]ii) Third-degree atrioventricular block [ ]iii) New-onset left bundle branch block with suspected myocardial ischemia [ ]c) Any heart rhythm and ANY ONE of the following (21)(22)(26)(27) (28) [ ] i) Continuous long-term ECG monitoring needed (e.g., initiation of drug requiring monitoring for more than 24 hours) [ ] ii) Patient has automatic implanted cardioverter defibrillator that is repeatedly firing, malfunctioning, or in need of immediate adjustment of settings beyond the scope of ambulatory or observation care [ ]d) Heart rhythms of concern due to ANY ONE of the following: [ ] i) Hypotension [ ] ii) Respiratory distress [ ] iii) Association with other significant symptoms (e.g., bradycardia with syncope or ongoing dizziness, supraventricular tachycardia with chest pain (14)(15)(17) [ ] IV. Monitoring for cardiac contusion beyond the scope of observation care needed [A](30)(31)(32) [ ] V. Surgical or device complication (e.g., valve replacement complication , pacemaker dysfunction) (35)(41)(44)(45)(46) [ ] . Inpatient palliative care needed. [B](49) Also use Inpatient Palliative Care Criteria [ ] VII. Nonbacterial thrombotic (marantic) endocarditis (36)(43)(47)(48) [X] VIII. Cardiology condition, symptom, or finding for which emergency and observation care has failed or are not considered appropriate. [ ] IX. Acute valvular disease requiring inpatient as indicated by ANY ONE of the following (41) [ ]a) Acute valvular regurgitation (42) [ ]b) Noninfectious valvulitis (43) [ ]c) Obstructive valve thrombosis [ ]d) Paravalvular leak [ ]e) Other significant valvular disorder remaining after emergency or observation level of care (as appropriate) [ ]X. Pericardial disease requiring inpatient treatment as indicated by ANY ONE of the following (33)(34)(35)(36)(37) [ ]a) Suspected tamponade (38)(39)(40) [ ]b) Hemopericardium [ ]c) Other significant pericardial disorder remaining after emergency or observation level of care (as appropriate) [ ] XI. Cardiac ischemia beyond scope of emergency and observation care. [ ] XII. Hypertension requiring inpatient treatment as indicated by ANY ONE of the following (6)(7)(8) [ ]a) SBP greater than 220 mm Hg or DBP greater than 120 mmHg despite treatment [ ]b) SBP greater than 140 mm Hg or DBP greater than 100 mm Hg with evidence of acute end organ damage as indicated by ANY ONE of the following [ ] i) Encephalopathy [ ] ii) Acute renal failure as indicated by new onset of ANY ONE of the following (9)(10)(11)(12)(13) [ ]1) 3-fold rise in serum creatinine from baseline [ ]2) Serum creatinine greater than 4 mg/dL ( 354 micromoles/L) with acute rise greater than 0.5 mg/dL (44.2 micromoles/L) [ ]3) Reduction of more than 75% in estimated glomerular filtration rate from baseline [ ]4) Estimated glomerular filtration rate less than 35 mL/min/1.73m2 (0.59 mL/sec/1.73m2) in child up to 18 years of age [ ]5) Cessation of urine output indicated by ALL of the following [ ]A. Adequate volume status [ ]B. Inadequate urine output as indicated by ANY ONE of the following [ ]a. Urine output less than 0.3 mL/kg/hr for 24 hours [ ]b. Anuria (urine output less than 0.1 mL/kg/hr) for 12 hours [ ] iii) Aortic dissection [ ] iv) Myocardial Ischemia [ ] v) Left ventricular heart failure [ ]vi) Retinal Hemorrhage [ ]vii) Other significant finding [ ]c) Hypertension in child requiring inpatient treatment as indicated by ALL of the following(14)(15)(16) [ ] i) Outpatient treatment not effective, not available, or not appropriate [ ]ii) SBP or DBP greater than 95th percentile for age [ ]iii) Evidence of acute end organ damage as indicated by ANY ONE of the following [ ]1) Altered mental status [ ]2) Acute renal failure as indicated by new onset of ANY ONE of the following(9)(10)(11)(12)(13) [ ]A. 3-fold rise in serum creatinine from baseline [ ]B. Serum creatinine greater than 4 mg/dL (354 micromoles/L) with acute rise greater than 0.5 mg/dL (44.2 micromoles/L) [ ]C. Reduction of more than 75% in estimated glomerular filtration rate from baseline [ ]D. Estimated glomerular filtration rate less than 35 mL/min/1.73m2 (0.59 mL/sec/1.73m2) in child up to 18 years of age [ ]E. Cessation of urine output indicated by ALL of the following [ ]a. Adequate volume status [ ]b. Inadequate urine output as indicated by ANY ONE of the following [ ]i) Urine output less than 0.3 mL/kg/hr for 24 hours [ ]ii) Anuria ( urine output less than 0.1 mL/kg/hr) for 12 hours [ ]3) Severe headache [ ]4) Visual disturbance [ ]5) Retinal hemorrhage [ ]6) Other significant finding [ ]XIII. Complications of transplanted heart indicated by ANY ONE of the following(61): [ ]a) Acute graft rejection requiring inpatient management (eg, intravenous immunosuppression)(62)(63) [ ]b) Acute graft heart failure indicated by ANY ONE of the following(64): [ ]i) Hemodynamic instability [ ]ii) Cardiac arrhythmias of immediate concern [ ]iii) Pulmonary edema that is very severe (eg, mechanical ventilation needed, imminent or likely, need for 100% oxygen to keep oxygen saturation above 90%) [ ]iv) Pulmonary edema that is persistent as indicated by ALL of the following: [ ]1) New need for oxygen therapy to keep oxygen saturation above 90% (or increased FiO2 need from baseline) [ ]2) Has not improved sufficiently with emergency department or observation care IV diuretics or other heart failure treatments[E] [ ]v) Altered mental status that is severe or persistent [ ]vi) Increased creatinine (new on laboratory test) with reduction of more than 50% in estimated glomerular filtration rate from baseline [ ]vii) Progressively (ongoing) rising creatinine (known from past laboratory test) with reduction of more than 25% in estimated glomerular filtration rate from baseline [ ]viii) Acute renal failure [ ]ix) Acute peripheral ischemia (eg, examination shows pulseless, cool, mottled, or cyanotic extremity) [ ]x) Pulmonary artery catheter monitoring needed [ ]xi) Other sign or symptom of heart failure requiring inpatient treatment (ie, too severe or not responsive to outpatient and observation care treatment) [ ]c) Infection requiring inpatient management (eg, Hemodynamic instability, need for intravenous antimicrobial treatment)(66)(67)(68)(69)(70) [ ]d) Cardiac allograft vasculopathy requiring inpatient management ( eg evidence of cardiac ischemia)(71) [ ]e) Other complication of transplanted heart (eg, stroke, severe pulmonary hypertension, severe valvular dysfunction) requiring inpatient management(72) The original [employer] [facility] content created by [facility] [employer] has been revised. The portions of the content which have been revised are identified through the use of italic text or in bold, and [facility] center[facility] [employer] has neither reviewed nor approved the modified material. All other unmodified content is copyright [employer] [facility] center[facility] [employer]. Please see references footnoted in the original [facility] [employer] edition 2016 ROXANNA GARCIA Mar 12, 2017 09:57
[2017-03-12] MEDS ORDERED: ACETAMINOPHEN 325 MG TABLET. PO PRN (10:45)
[2017-03-12] MEDS ORDERED: MORPHINE SULFATE 2 MG/ML DISP.SYRIN. IV PRN (10:45)
[2017-03-12] MEDS ORDERED: ONDANSETRON PF 4 MG/2 ML VIAL. IV PRN (10:45)
--- NOTE | 2017-03-12 13:15 | PDOC2 ---
DARLYN RUELAS MOLD TOOLING TECHNICIAN 03/12/17 1315: CARDIAC CONSULT DATE OF CONSULT Date of Consult DATE: 03/12/17 TIME: 13:10 REASON FOR CONSULT Reason for Consult: Chest Pain REFERRING PHYSICIAN Referring Physician: Dr. Khan SOURCE Source: Chart review, Patient HISTORY OF PRESENT ILLNESS HISTORY OF PRESENT ILLNESS This is a 62 yo female who presented with complaints of chest pain. Patient reports pain began this morning after getting out of the shower. Located in her central chest. Describes as stabbing in nature. Radiated through to her back and down her left arm. Pain worsened with deep breathing and by pressing on her chest. Associated with nausea. Denies any palpitations, dizziness, or diaphoresis. No neck or jaw pain. Episode lasted approximately 5 minutes and resolved without intervention. Patient recently evaluated for complaints of chest pain; was thought to be MSK in origin. Patient reports pain is similar to what she previously experienced, although more intense today. PAST MEDICAL HISTORY Cardiovascular: CAD (s/p PCI/BMS to OM1), HTN, SD, Hyperlipidemia Pulmonary: COPD (O2 dependent ), Other (PE/DVT, JESUS) GI: GERD Heme/Onc: No pertinent hx Hepatobiliary: No pertinent hx Psych: Anxiety, Depression Musculoskeletal: Osteoarthritis, Other (thoracic compression fracture ) Rheumatologic: No pertinent hx Infectious disease: No pertinent hx ENT: No pertinent hx Renal/: No pertinent hx Endocrine: Diabetes, Hypothyroidism PAST SURGICAL HISTORY Past Surgical History knee replacement, spinal fusion, tubal ligation FAMILY HISTORY Family History: Other (non contributory ) SOCIAL HISTORY Smoke: Quit ALCOHOL: none Drugs: None Lives: Alone CURRENT MEDICATIONS CURRENT MEDICATIONS Current Medications Medications (Trade) Dose Ordered Sig/Juan Route PRN Reason Start Time Stop Time Status Last Admin Dose Admin Ondansetron HCl (Zofran) 4 mg 1X ONCE IV 03/12/17 08:30 03/12/17 08:31 DC 03/12/17 09:06 Albuterol/ Ipratropium (Duoneb) 3 ml 1X ONCE NEB 03/12/17 08:30 03/12/17 08:31 DC 03/12/17 08:41 ALLERGIES ALLERGIES: Coded Allergies: levofloxacin (Verified Allergy, Intermediate, Hives, 03/05/17) ROS Review of System 14 point ROS conducted with pertinent positives noted above in HPI PHYSICAL EXAM General: Alert, Oriented X3, Cooperative HEENT: Atraumatic Lungs: Clear to auscultation Heart: Regular rate, Normal S1, Normal S2, Other (central chest tenderness to palpation) Abdomen: Soft, No tenderness Extremities: No edema, Normal pulses Skin: No significant lesion Neuro: Normal speech, Sensation intact Psych/Mental Status: Mental status NL, Mood NL MUSCULOSKELETAL: Osteoarthritic changes both hands VITALS VITALS Vital Signs Date Time Temp Pulse Resp B/P Pulse Ox O2 Delivery O2 Flow Rate FiO2 03/12/17 11:54 74 14 104/63 98 Nasal Cannula 3 03/12/17 08:03 98.5 98.5 LABS Lab: Laboratory Tests Test 03/12/17 08:50 03/12/17 12:21 White Blood Count 6.7x10^3/uL (4.0-11.0) Red Blood Count 3.99x10^6/uL (3.50-5.40) Hemoglobin 11.9g/dL (12.0-15.5) Hematocrit 36.0% (36.0-47.0) Mean Corpuscular Volume 90fL (79-100) Mean Corpuscular Hemoglobin 30pg (25-35) Mean Corpuscular Hemoglobin Concent 33g/dL (31-37) Red Cell Distribution Width 12.9% (11.5-14.5) Platelet Count 319x10^3/uL (140-400) Neutrophils (%) (Auto) 69% (31-73) Lymphocytes (%) (Auto) 21% (24-48) Monocytes (%) (Auto) 9% (0-9) Eosinophils (%) (Auto) 1% (0-3) Basophils (%) (Auto) 0% (0-3) Neutrophils # (Auto) 4.6x10^3uL (1.8-7.7) Lymphocytes # (Auto) 1.4x10^3/uL (1.0-4.8) Monocytes # (Auto) 0.6x10^3/uL (0.0-1.1) Eosinophils # (Auto) 0.1x10^3/uL (0.0-0.7) Basophils # (Auto) 0.0x10^3/uL (0.0-0.2) Prothrombin Time 12.7SEC (11.7-14.0) Prothromb Time International Ratio 1.0 (0.8-1.1) Activated Partial Thromboplast Time 33SEC (24-38) Sodium Level 139mmol/L (136-145) Potassium Level 3.7mmol/L (3.5-5.1) Chloride Level 98mmol/L (98-107) Carbon Dioxide Level 35mmol/L (21-32) Anion Gap 6 (6-14) Blood Urea Nitrogen 24mg/dL (7-20) Creatinine 1.7mg/dL (0.6-1.0) Estimated GFR (Cockcroft-Gault) 30.4 Glucose Level 233mg/dL (70-99) Calcium Level 8.8mg/dL (8.5-10.1) Troponin I Quantitative < 0.017ng/mL (0.000-0.055) XE-Ani-S-Type Natriuretic Peptide 116pg/mL (0-124) Glucose (Fingerstick) 167mg/dL (70-99) ECHOCARDIOGRAM ECHOCARDIOGRAM <Conclusion> The left ventricular systolic function is normal. The Ejection Fraction is 55-60%. There is normal LV segmental wall motion. Transmitral Doppler flow pattern is Grade I-abnormal relaxation pattern. Trace aortic regurgitation. Mild tricuspid regurgitation. The pulmonary artery systolic pressure is estimated at 59 mmHg. There is moderate pulmonary hypertension. There is no evidence of significant pericardial effusion. DATE: 03/03/17 1739 STRESS TEST STRESS TEST Conclusion 1. Regadenoson cardioisotope stress test showed diaphragmatic attenuation artifact without any definite evidence for ischemia or infarct. 2. Normal left ventricular systolic function with ejection fraction calculated at 64%. 3. Low risk for cardiac events. DATE: 04/20/16 1330 HEART CATH HEART CATH CORONARY ANGIOGRAPHY: LM is a large caliber vessel with normal angiographic appearance LAD is a large caliber vessel with mild luminal irregularities of up to 30% D1 is a moderate caliber vessel with normal angiographic appearance LCx is a dominant vessel with mild luminal irregularities. OM1 is a large caliber vessel with an ostial 80% stenosis suggestive of acute plaque rupture with DELTA 3 flow. LPDA is a small caliber vessel with mild diffuse irregularities. Conclusion 1. Mildly elevated left ventricular filling pressure. 2. Low normal LV function. EF 50% 3. Mild MR 4. One vessel CAD s/p PCI to the OM1 with implantation of a Integrity BMS (3.0/ 18, dilated up to a 3.25mm stent). DATE: 11/21/15 1435 ASSESSMENT/PLAN ASSESSMENT/PLAN 1. Chest pain, atypical. 2. CAD; s/p PCI/BMS OM1 11/08 3. COPD, O2 dependent 4. Hypertension 5. Hyperlipidemia 6. Diabetes 7. CAESAR with CKD Recommendations Trend enzymes Continue secondary prevention. BP and lipids well-controlled. Single-vessel disease noted per cath 11/08 Suspect pain is MSK in origin as it is reproducible with palpation CAESAR management per PCP Problems: MANISH AHMADI MD 03/12/17 2243: CARDIAC CONSULT ALLERGIES ALLERGIES: Coded Allergies: levofloxacin (Verified Allergy, Intermediate, Hives, 03/05/17) ASSESSMENT/PLAN ASSESSMENT/PLAN Pt. seen and examined. agree with above MACHINE PRESSER note. 62 y.o well known to me with prior single vessel CAD Presenting with atypical chest pain. Normal cardiac exam Due to risk factors, dyspnea and atypical chest pain we discussed possible stress test. Will plan for MPI in a.m. Thanks for consultation. Problems: DARLYN RUELAS APRN Mar 12, 2017 13:15 MANISH AHMADI MD Mar 12, 2017 22:43
[2017-03-12 15:00] VITALS: BP 105/56
[2017-03-12] MEDS ORDERED: CYCLOBENZAPRINE 10 MG TABLET. PO PRN (15:30)
[2017-03-12] MEDS ORDERED: ALBUTEROL SULFATE 2.5 MG/3 ML NEBU. NEB PRN (15:30)
[2017-03-12] MEDS: PRASUGREL 10 MG TABLET. PO SCH (15:51)
[2017-03-12] MEDS: LEVOTHYROXINE 88 MCG TABLET PO SCH (15:51)
[2017-03-12] MEDS: ISOSORBIDE MONONITRATE ER 30 MG TAB.ER.24H PO SCH (15:51)
[2017-03-12] MEDS: METOPROLOL SUCC 24HR ER 25 MG TAB.ER.24H. PO SCH (15:51)
[2017-03-12] MEDS: buPROPion XL 150 MG TAB.ER.24H. PO SCH (15:52)
[2017-03-12] MEDS: LOSARTAN POTASSIUM 50 MG TABLET. PO SCH (15:54)
[2017-03-12] MEDS: IPRATRPIUM/ALBUTEROL 0.5/2.5MG 3 ML NEBU. NEB SCH (16:01)
[2017-03-12] MEDS: IPRATRPIUM/ALBUTEROL 0.5/2.5MG 3 ML NEBU. IH SCH (16:05)
[2017-03-12] MEDS: SUCRALFATE 1 GM TABLET. PO SCH ×2 (16:32→21:06)
[2017-03-12 19:00] VITALS: BP 127/66
[2017-03-12] MEDS: ALPRAZolam 0.25 MG TABLET PO PRN (21:06)
[2017-03-12] MEDS: BENZONATATE 100 MG CAPSULE. PO SCH (21:06)
[2017-03-12] MEDS: MONTELUKAST SODIUM 10 MG TABLET. PO SCH (21:06)
[2017-03-12] MEDS: ATORVASTATIN CALCIUM 20 MG TABLET PO SCH (21:06)
[2017-03-12 23:00] VITALS: BP 138/69
[2017-03-13] MEDS: PANTOPRAZOLE 40 MG TABLET.DR. PO SCH (06:02)
[2017-03-13] MEDS: SUCRALFATE 1 GM TABLET. PO SCH ×4 (06:02→20:59)
[2017-03-13] MEDS: LEVOTHYROXINE 88 MCG TABLET PO SCH (06:03)
[2017-03-13 07:00] VITALS: BP 102/60
[2017-03-13] MEDS: BUDESONIDE 0.5 MG/2 ML NEBU. NEB SCH ×2 (07:31→18:20)
[2017-03-13] MEDS: IPRATRPIUM/ALBUTEROL 0.5/2.5MG 3 ML NEBU. NEB SCH (07:31)
[2017-03-13] MEDS: IPRATRPIUM/ALBUTEROL 0.5/2.5MG 3 ML NEBU. IH SCH ×5 (07:33→18:19)
--- NOTE | 2017-03-13 08:12 | PDOC ---
OBJECTIVE Vital Signs Vital Signs Date Time Temp Pulse Resp B/P Pulse Ox O2 Delivery O2 Flow Rate FiO2 03/13/17 07:34 98 Nasal Cannula 3.0 03/13/17 07:00 97.8 77 16 102/60 98 Nasal Cannula 3.0 97.8 03/12/17 23:00 99.9 83 18 138/69 96 Nasal Cannula 3.0 99.9 03/12/17 21:35 18 98 Nasal Cannula 3.0 03/12/17 21:06 18 98 Nasal Cannula 3.0 03/12/17 20:25 98 Nasal Cannula 3.0 03/12/17 20:25 98 Nasal Cannula 3.0 03/12/17 19:10 Nasal Cannula 3.0 03/12/17 19:00 99.9 85 18 127/66 97 Nasal Cannula 3.0 99.9 03/12/17 16:06 98 Nasal Cannula 3.0 03/12/17 15:54 80 105/56 03/12/17 15:02 Nasal Cannula 3.0 03/12/17 15:00 97.7 80 18 105/56 97 Nasal Cannula 3.0 97.7 03/12/17 11:54 74 14 104/63 98 Nasal Cannula 3 03/12/17 11:24 74 19 103/63 98 Nasal Cannula 3 03/12/17 10:24 80 18 108/57 98 Nasal Cannula 3 03/12/17 09:54 82 16 102/61 97 Nasal Cannula 3 03/12/17 09:24 84 16 106/62 99 Nasal Cannula 3 03/12/17 08:54 86 16 101/65 98 Nasal Cannula 3 03/12/17 08:45 96 Nasal Cannula 3.0 03/12/17 08:24 86 18 111/62 98 Nasal Cannula 3 I & O Intake and Output 03/13/17 07:00 Intake Total 1200 ml Balance 1200 ml Intake Oral 1200 ml # Voids 4 ASSESSMENT/PLAN Assessment/Plan [id number] H&P dictated Problems: COMMENT Lab Laboratory Tests Test 03/12/17 08:50 03/12/17 12:21 03/12/17 16:25 03/12/17 16:36 White Blood Count 6.7x10^3/uL (4.0-11.0) Red Blood Count 3.99x10^6/uL (3.50-5.40) Hemoglobin 11.9g/dL (12.0-15.5) Hematocrit 36.0% (36.0-47.0) Mean Corpuscular Volume 90fL (79-100) Mean Corpuscular Hemoglobin 30pg (25-35) Mean Corpuscular Hemoglobin Concent 33g/dL (31-37) Red Cell Distribution Width 12.9% (11.5-14.5) Platelet Count 319x10^3/uL (140-400) Neutrophils (%) (Auto) 69% (31-73) Lymphocytes (%) (Auto) 21% (24-48) Monocytes (%) (Auto) 9% (0-9) Eosinophils (%) (Auto) 1% (0-3) Basophils (%) (Auto) 0% (0-3) Neutrophils # (Auto) 4.6x10^3uL (1.8-7.7) Lymphocytes # (Auto) 1.4x10^3/uL (1.0-4.8) Monocytes # (Auto) 0.6x10^3/uL (0.0-1.1) Eosinophils # (Auto) 0.1x10^3/uL (0.0-0.7) Basophils # (Auto) 0.0x10^3/uL (0.0-0.2) Prothrombin Time 12.7SEC (11.7-14.0) Prothromb Time International Ratio 1.0 (0.8-1.1) Activated Partial Thromboplast Time 33SEC (24-38) Sodium Level 139mmol/L (136-145) Potassium Level 3.7mmol/L (3.5-5.1) Chloride Level 98mmol/L (98-107) Carbon Dioxide Level 35mmol/L (21-32) Anion Gap 6 (6-14) Blood Urea Nitrogen 24mg/dL (7-20) Creatinine 1.7mg/dL (0.6-1.0) Estimated GFR (Cockcroft-Gault) 30.4 Glucose Level 233mg/dL (70-99) Calcium Level 8.8mg/dL (8.5-10.1) Troponin I Quantitative < 0.017ng/mL (0.000-0.055) < 0.017ng/mL (0.000-0.055) OY-Flr-E-Type Natriuretic Peptide 116pg/mL (0-124) Glucose (Fingerstick) 167mg/dL (70-99) 165mg/dL (70-99) Test 03/12/17 21:35 03/12/17 22:39 03/13/17 07:20 Glucose (Fingerstick) 230mg/dL (70-99) 199mg/dL (70-99) 182mg/dL (70-99) AURA TEJEDA MD Mar 13, 2017 08:12
[2017-03-13] MEDS ORDERED: REGADENOSON 0.4 MG/5 ML DISP.SYRIN. IV ONE (09:00)
[2017-03-13] MEDS ORDERED: NON FORMULARY ITEM (Fluticasone/Vilanterol (Breo Ellipta 100-25 Mcg Inh) 1 PUFF) IH SCH (09:00)
[2017-03-13 10:32] VITALS: BP 126/60
[2017-03-13] MEDS: FENOFIBRATE,MICRONIZED 134 MG CAPSULE PO SCH (12:05)
[2017-03-13] MEDS: buPROPion XL 150 MG TAB.ER.24H. PO SCH (12:05)
[2017-03-13] MEDS: ASPIRIN ENTERIC COATED 81 MG TABLET.DR. PO SCH (12:05)
[2017-03-13] MEDS: PRASUGREL 10 MG TABLET. PO SCH (12:05)
[2017-03-13] MEDS: BENZONATATE 100 MG CAPSULE. PO SCH ×3 (12:05→20:59)
[2017-03-13] MEDS: ISOSORBIDE MONONITRATE ER 30 MG TAB.ER.24H PO SCH (12:05)
[2017-03-13] MEDS: METOPROLOL SUCC 24HR ER 25 MG TAB.ER.24H. PO SCH (12:06)
--- NOTE | 2017-03-13 12:07 | PDOC ---
DARLYN RUELAS APRN 03/13/17 1207: CARDIO Progress Notes Date and Time Date of Service 03/13/17 Time of Evaluation 1215 Subjective Subjective: No shortness of breath, No Palpitations, Other (c/o back pain) Vitals Vitals Vital Signs Date Time Temp Pulse Resp B/P Pulse Ox O2 Delivery O2 Flow Rate FiO2 03/13/17 10:32 97.7 77 17 126/60 98 Nasal Cannula 3.0 97.7 Weight Weight [ ] Input and Output Intake and Output Intake and Output 03/13/17 06:59 Intake Total 1200 ml Balance 1200 ml Intake Oral 1200 ml # Voids 4 Laboratory Labs Laboratory Tests Test 03/12/17 12:21 03/12/17 16:25 03/12/17 16:36 03/12/17 21:35 Glucose (Fingerstick) 167mg/dL (70-99) 165mg/dL (70-99) 230mg/dL (70-99) Troponin I Quantitative < 0.017ng/mL (0.000-0.055) Test 03/12/17 22:39 03/13/17 07:20 Glucose (Fingerstick) 199mg/dL (70-99) 182mg/dL (70-99) Physical Exam HEENT: Neck Supple W Full Motion Chest: Symmetric LUNGS: Clear to Auscultation Heart: S1S2, RRR Abdomen: Soft N/T Extremities: 2+ Dorsalis Pedis, No Edema, No Calf Tenderness Neurology: alert, oriented, follow commands Assessment Assessment 1. Chest pain, atypical. 2. CAD; s/p PCI/BMS OM1 11/08 3. COPD, O2 dependent 4. Hypertension 5. Hyperlipidemia 6. Diabetes 7. CAESAR with CKD Recommendations AMI ruled out. MPI underway to r/o reversible ischemia If negative, may discharge from CV perspective and f/u in our in 2-3 months. Suspect pain is referred from back with compression fracture. Continue secondary prevention measures. MANISH AHMADI MD 03/13/17 4885: CARDIO Progress Notes Plan Plan Patient seen and examined. Agree with above nurse practitioner note. No acute events overnight. Normal cardiovascular examination. Medications reviewed. Laboratory studies within normal limits. Myocardial perfusion study negative. Okay to discharge from a cardiac standpoint. DARLYN RUELAS APRN Mar 13, 2017 12:07 MANISH AHMADI MD Mar 13, 2017 18:23
--- NOTE | 2017-03-13 12:26 | HP ---
ADMIT DATE: HISTORY OF PRESENT ILLNESS: The patient is a 62-year-old, who was admitted to room 512, presented to the Emergency Room complaining of chest pain. She does have previous history of coronary artery disease and has a single stent. She was in the hospital about a week ago for chest pain and her cardiac exam was negative. She was discharged to follow up with Cardiology as outpatient. However, she had chest pain again at 7 a.m. in the morning. The pain was nonradiating, was associated with shortness of breath and nausea. She denies diaphoresis, denies coughing, denies fever or chills. She does have chronic COPD and does use oxygen at home and has had multiple admissions for COPD in the past. Her breathing, she states ____baseline and is not worse. She was concerned about the chest pain and tightness in the chest. The patient does have risk for coronary artery disease and is a former smoker. PAST MEDICAL HISTORY: Significant for diabetes mellitus type 2; congestive heart failure, diastolic; hyperlipidemia; hypertension; previous history of DVT; COPD; emphysema; asthma; history of pulmonary embolus; pneumonia; sleep apnea; history of cholecystectomy; gastroesophageal reflux disease; irritable bowel syndrome; diarrhea and constipation; history of hysterectomy; previous recurrent UTIs; osteoarthritis; carpal tunnel syndrome; previous bilateral carpal tunnel surgery; history of left knee replacement twice; history of rib fracture; hypothyroidism; depression; anxiety and peripheral neuropathy. SOCIAL HISTORY: She is an ex-smoker. She has 40 years of smoking history. She quit smoking few years ago. She does not drink alcohol or use drugs. FAMILY HISTORY: Positive for diabetes, hypertension and coronary artery disease. REVIEW OF SYSTEMS: CONSTITUTIONAL: Denies fever or chills. EYES: Denies visual changes. HEENT: Denies nasal congestion or sore throat. RESPIRATORY: She does have chronic shortness of breath. Denies having worsening breathing, chest pain. CARDIOVASCULAR: As described above. GASTROINTESTINAL: Reports nausea, but no abdominal pain or vomiting. MUSCULOSKELETAL: She does have osteoarthritis. NEUROLOGIC: She denies headache or focal weakness. PHYSICAL EXAMINATION: GENERAL: She is alert and oriented, in no acute distress, cooperative. HEENT: Tympanic membranes clear. Pharynx clear. No sinus tenderness. NECK: Supple, no JVD or bruits or cervical adenopathy. LUNGS: Clear, decreased breath sounds. No wheezing at present time. HEART: She does have some chest wall pain in the sternal area with palpation. ABDOMEN: Soft, nontender, no organomegaly, no masses, no bruits, no ascites. EXTREMITIES: No edema, clubbing or cyanosis. NEUROLOGIC: Normal. IMPRESSION: 1. Chest pain. The patient was previous history of coronary artery disease and previous stent. This is her second admission within a week. She is admitted. If the cardiac enzymes is negative, we will proceed with stress test. 2. Chronic obstructive pulmonary disease. 3. Diabetes mellitus. 4. Acute renal insufficiency. We will hold her metformin for now. 5. Hypertension. 6. Hypertensive cardiovascular disease. 7. Hyperlipidemia. AURA TEJEDA MD DR: MONIQUE/paul JOB#: [id number] / [id number]
--- NOTE | 2017-03-13 14:05 | RAD ---
APPROVED REPORT Test Type: Pharmacological Stress Nurse/Tech: Sarah Moura R.N. Test Indications: chest pain Cardiac History: copd, mi, stent 10/2015, htn, dm Medications: see ehr Medical History: see ehr Resting ECG: sr Resting Heart Rate: 81 bpm Resting Blood Pressure: 108/65mmHg Pretest Chest Pain: No chest pain Nurse/Tech Notes lungs cta but diminished-no wheezes, heart tones regular Consent: The procedure was explained to the patient in lay terms. Informed consent was witnessed. Jarrett eout was entered into [employer]. History and Stress Test performed by Sarah Moura R.N. Pharm. Details Pharmacologic stress testing was performed using 0.4mg per 5ml of regadenoson given intravenously ove r 7-10 seconds. Stress Symptoms No chest pain or symptoms.Nausea POST EXERCISE Reason for Termination: Infusion complete Max HR: 92 bpm Max Blood Pressure: 133/36mmHg Chest Pain: No. Arrhythmia: No. ST Change: No. INTERPRETATION Stress EKG Conclusion: The resting EKG showed a sinus rhythm. The stress EKG showed no significant changes from baseline. No EKG evidence of stress-induced ischemia. Imaging Protocol IMAGE PROTOCOL: Rest Tc-99m/stress Tc-99m 1 day Rest: Stress: Viability: Radiopharm.Tc99m [id number] Sestamibi [id number] 34mCi Duration 15min. 10min. Img Date 03/13/2017 03/13/2017 Inj-Img [id number]. 60min. Rest Admin Site:IV - Right HandAdministrator:Reyna Salvador, RT (R)(N) Stress Admin Site: IV - Right HandAdministrator: Kiara Nelson, TIKI, ARRT (R)(N) STRESS DATA End Diast. Vol.60.0mlAv. Heart Rate87.0bpm End Syst. Vol.14.0mlCO Index BSA0.0L/min Myocardial Pybj229.0gEject. Gtyzkeul00.0% Stress Rates Pk. Fill Rate3.37EDV/secLVtime Pk. Fill 209.91msec Pk. Empty Rate5.47ESV/secLVtime Pk. Appht514.40msec 11/27 Pk. Fill0.62EDV/sec Stress Scores Regional WT0.00Summed WT3.00 Regional WM0.00Summed WM7.00 LV Perfusion The stress scans showed no significant defects. The rest scans showed no significant defects. Nuclear imaging shows no reversible ischemia or infarct. Wall Motion Left ventricular systolic function is normal with an ejection fraction of greater than 70%. LV Perf. Quant 17 Seg. SSS0.00 17 Seg. SRS6.00 17 Seg. SDS0.00 Stress Defect Extent (% LAD)0.00Rest Defect Extent (% LAD)5.00Rev. Defect Extent (% LAD)0.00 Stress Defect Extent (% LCX) 0.00Rest Defect Extent (% LCX)0.00Rev. Defect Extent (% LCX)0.00 Stress Defect Extent (% RCA)0.00Rest Defect Extent (% RCA)28.90Rev. Defect Extent (% RCA)0.00 Stress Defect Extent (% ROMÁN)0.00Rest Defect Extent (% ROMÁN)13.00Rev. Defect Extent (% ROMÁN)0.00 Conclusion 1. No EKG evidence of stress-induced ischemia. 2. Nuclear imaging shows no reversible ischemia or infarct. 3. Normal left ventricular systolic function with an ejection fraction of greater than 70%. 4. Low risk Lexiscan nuclear stress test.
[2017-03-13] MEDS: HYDROCODONE/APAP 5/325MG TABLET. PO PRN ×2 (14:31→22:18)
[2017-03-13] MEDS: LOSARTAN POTASSIUM 50 MG TABLET. PO SCH (14:32)
[2017-03-13 14:38] VITALS: BP 110/70
[2017-03-13 19:00] VITALS: BP 147/71
[2017-03-13] MEDS: MONTELUKAST SODIUM 10 MG TABLET. PO SCH (20:59)
[2017-03-13] MEDS: ALPRAZolam 0.25 MG TABLET PO PRN (20:59)
[2017-03-13] MEDS: ATORVASTATIN CALCIUM 20 MG TABLET PO SCH (20:59)
[2017-03-13] MEDS ORDERED: DEXTROSE 50% 25 GM / 50ML DISP.SYRIN. IV PRN (22:15)
[2017-03-13] MEDS: INSULIN ASPART 300 UNITS/3 ML INSULN.PEN SQ SCH (22:20)
[2017-03-13 23:00] VITALS: BP 111/66
[2017-03-14 03:07] VITALS: BP 103/51
[2017-03-14] MEDS: LEVOTHYROXINE 88 MCG TABLET PO SCH (06:00)
[2017-03-14 07:00] VITALS: BP 105/66
[2017-03-14] MEDS ORDERED: METFORMIN 1,000 MG TABLET PO SCH (08:00)
[2017-03-14] MEDS: IPRATRPIUM/ALBUTEROL 0.5/2.5MG 3 ML NEBU. IH SCH ×3 (08:10→15:40)
[2017-03-14] MEDS: BUDESONIDE 0.5 MG/2 ML NEBU. NEB SCH (08:10)
[2017-03-14] MEDS: PRASUGREL 10 MG TABLET. PO SCH (08:51)
--- NOTE | 2017-03-14 08:51 | PDOC ---
SUBJECTIVE Subjective feels better, stress test neg OBJECTIVE Vital Signs Vital Signs Date Time Temp Pulse Resp B/P Pulse Ox O2 Delivery O2 Flow Rate FiO2 03/14/17 08:11 97 Nasal Cannula 3.0 03/14/17 03:07 97.6 79 20 103/51 93 Nasal Cannula 97.6 03/13/17 23:18 97 Nasal Cannula 3.0 03/13/17 23:00 98.0 82 20 111/66 97 Nasal Cannula 98.0 03/13/17 22:18 92 Nasal Cannula 3.0 03/13/17 20:00 Nasal Cannula 3.0 03/13/17 19:00 98.1 104 20 147/71 92 Nasal Cannula 98.1 03/13/17 18:20 Nasal Cannula 3.0 03/13/17 15:37 96 Nasal Cannula 3.0 03/13/17 14:38 98.2 94 17 110/70 94 Nasal Cannula 3.0 98.2 03/13/17 14:32 90 110/70 03/13/17 14:31 Nasal Cannula 3.0 03/13/17 12:51 Nasal Cannula 3.0 03/13/17 12:06 77 126/60 03/13/17 12:05 77 126/60 03/13/17 10:32 97.7 77 17 126/60 98 Nasal Cannula 3.0 97.7 I & O Intake and Output 03/14/17 07:00 # Voids 10 # Bowel Movements 1 PHYSICAL EXAM Physical Exam no change ASSESSMENT/PLAN Assessment/Plan plan home today , resume Metformin if kidney function better Problems: COMMENT Lab Laboratory Tests Test 03/13/17 16:55 03/13/17 20:05 03/14/17 07:16 Glucose (Fingerstick) 243mg/dL (70-99) 269mg/dL (70-99) 188mg/dL (70-99) AURA TEJEDA MD Mar 14, 2017 08:51
[2017-03-14] MEDS: SUCRALFATE 1 GM TABLET. PO SCH ×2 (08:53→12:02)
[2017-03-14] MEDS: BENZONATATE 100 MG CAPSULE. PO SCH ×2 (08:53→14:45)
[2017-03-14] MEDS: FENOFIBRATE,MICRONIZED 134 MG CAPSULE PO SCH (08:54)
[2017-03-14] MEDS: ISOSORBIDE MONONITRATE ER 30 MG TAB.ER.24H PO SCH (08:54)
[2017-03-14] MEDS: buPROPion XL 150 MG TAB.ER.24H. PO SCH (08:54)
[2017-03-14] MEDS: ASPIRIN ENTERIC COATED 81 MG TABLET.DR. PO SCH (08:55)
[2017-03-14] MEDS: PANTOPRAZOLE 40 MG TABLET.DR. PO SCH (08:55)
[2017-03-14] MEDS: METOPROLOL SUCC 24HR ER 25 MG TAB.ER.24H. PO SCH (08:56)
[2017-03-14] MEDS: INSULIN ASPART 300 UNITS/3 ML INSULN.PEN SQ SCH ×2 (09:01→12:06)
[2017-03-14] MEDS ORDERED: DULO60CA6 PO (09:35)
--- NOTE | 2017-03-14 09:51 | PDOC3 ---
Discharge Summary* Date of Admission: Mar 12, 2017 Date of Discharge: Mar 14, 2017 Admitting Diagnosis Problems Medical Problems: (1) Acute renal failure Status: Acute (2) Chest pain Status: Acute (3) Hyperglycemia Status: Acute Final Diagnosis 1. Chest pain. not cardiac MPI neg likely mucsloskeletal due to chronic DJD spine with acute exacerbation 2. Chronic obstructive pulmonary disease. 3. Diabetes mellitus. 4. Acute renal insufficiency on chronic improved 5. Hypertension. 6. Hypertensive cardiovascular disease. 7. Hyperlipidemia. Problems Medical Problems: (1) Acute renal failure Status: Acute (2) Chest pain Status: Acute (3) Hyperglycemia Status: Acute CONSULTS cardiology Procedures CXR ,MPI stress test neg Brief Hospital Course Ms. Cash is a 62 old [sex] who presented with [ ] Disposition/Orders: D/C to Home CONDITION AT DISCHARGE: Improved Diet: Cardiac, Consistent Carbohydrate Scheduled Amlodipine Besylate (Amlodipine Besylate) 5 MG PO DAILY Aspirin (Aspir 81) 1 TAB PO DAILY (Reported) Atorvastatin Calcium (Atorvastatin Calcium) 20 MG PO DAILY (Reported) Benzonatate (Benzonatate) 100 MG PO [id number] Bupropion Hcl (Bupropion Xl) 300 MG PO DAILY (Reported) Citalopram Hydrobromide (Citalopram Hbr) 40 MG PO HS (Reported) Esomeprazole Magnesium (Nexium Capsule) 1 CAP PO DAILY (Reported) Fenofibrate Nanocrystallized (Fenofibrate) 160 MG PO DAILY (Reported) Fluticasone/Vilanterol (Breo Ellipta 100-25 Mcg Inh) 1 PUFF IH DAILY (Reported) Ipratropium/Albuterol Sulfate (Duoneb 0.5 Mg-3 Mg/3 Ml Soln) 3 ML IH QID ( Reported) Isosorbide Mononitrate (Isosorbide Mononitrate Er) 30 MG PO DAILY (Reported) Levothyroxine Sodium (Levothyroxine Sodium) 88 MCG PO DAILY06 (Reported) Losartan Potassium (Cozaar) 100 MG PO DAILY@14 Metformin Hcl (Metformin Hcl) 1,000 MG PO BID (Reported) Metoprolol Succinate (Metoprolol Succinate ( Xl )) 2 TAB PO DAILY (Reported) Montelukast Sodium (Montelukast Sodium Tablet) 10 MG PO QHS Prasugrel Hcl (Effient) 10 MG PO DAILYWBKFT Sucralfate (Carafate) 1 GM PO QIDACHS Scheduled PRN Albuterol Sulfate (Ventolin Hfa Inhaler) 2 PUFF INH PRN QID PRN PRN SHORTNESS OF BREATH (Reported) Alprazolam (Xanax) 0.25 MG PO PRN TID PRN PRN ANXIETY / AGITATION (Reported) Cyclobenzaprine Hcl (Cyclobenzaprine Hcl) 1 TAB PO TID PRN PRN MUSCLE SPASMS Hydrocodone Bit/Acetaminophen (Hydrocodone-Apap 5-325 ) 1 TAB PO PRN Q8HRS PRN PRN PAIN (Reported) FOLLOW UP APPOINTMENT: Dr. Hoang 1 week Time Spent Total time spent with patient [] minutes for coordination of care, counseling, and education. AURA TEJEDA MD Mar 14, 2017 09:51
[2017-03-14 10:00] LABS: CALCIUM 8.5 mg/dL (8.5-10.1); CREATININE 1.1 mg/dL (0.6-1.0); GFR 50.2; POTASSIUM 4.1 mmol/L (3.5-5.1)
[2017-03-14 11:00] VITALS: BP 130/64
[2017-03-14 11:11] VITALS: BP 130/64
[2017-03-14 14:18] VITALS: BP 107/66
[2017-03-14 14:44] VITALS: BP 107/66
[2017-03-14] MEDS: LOSARTAN POTASSIUM 50 MG TABLET. PO SCH (14:44)
== END 2017-03-14 15:50 | disposition home or self-care (01) | DRG 683 ==
LOC: ER 08:03 → 5 NORTH 09:05
PROVIDERS: ADMIT Internal Medicine; ATTEND Internal Medicine
DX: N17.9 Acute kidney failure, unspecified (principal); I13.0 Hypertensive heart and chronic kidney disease with heart failure and stage 1 through stage 4 chronic kidney disease, or unspecified chronic kidney disease; I50.30 Unspecified diastolic (congestive) heart failure; M47.9 Spondylosis, unspecified; J44.9 Chronic obstructive pulmonary disease, unspecified; E03.9 Hypothyroidism, unspecified; E11.22 Type 2 diabetes mellitus with diabetic chronic kidney disease; E11.42 Type 2 diabetes mellitus with diabetic polyneuropathy; E11.65 Type 2 diabetes mellitus with hyperglycemia; E78.00 Pure hypercholesterolemia, unspecified; E78.5 Hyperlipidemia, unspecified; G47.33 Obstructive sleep apnea (adult) (pediatric); I25.10 Atherosclerotic heart disease of native coronary artery without angina pectoris; K58.9 Irritable bowel syndrome, unspecified; Z96.652 Presence of left artificial knee joint; F41.8 Other specified anxiety disorders; G56.03 Carpal tunnel syndrome, bilateral upper limbs; K59.00 Constipation, unspecified; Z96.659 Presence of unspecified artificial knee joint; K21.9 Gastro-esophageal reflux disease without esophagitis; Z82.49 Family history of ischemic heart disease and other diseases of the circulatory system; I25.2 Old myocardial infarction; Z86.711 Personal history of pulmonary embolism; Z90.49 Acquired absence of other specified parts of digestive tract; Z87.440 Personal history of urinary (tract) infections; Z86.718 Personal history of other venous thrombosis and embolism; Z90.710 Acquired absence of both cervix and uterus; Z83.3 Family history of diabetes mellitus; Z87.891 Personal history of nicotine dependence; Z95.5 Presence of coronary angioplasty implant and graft; Z98.1 Arthrodesis status; Z99.81 Dependence on supplemental oxygen; Z98.51 Tubal ligation status; Z88.1 Allergy status to other antibiotic agents; Z87.01 Personal history of pneumonia (recurrent); N18.2 Chronic kidney disease, stage 2 (mild)
CPT/HCPCS: 36415; 71010; 78452; 80048; 82947; 83880; 84484; 85027; 85610; 85730; 93005; 93017; 94250; 94640; 94760; 96374; 96375; 96376; A9500; J1815; J2270; J2405; J2785; J7620; 99285-25

== ENCOUNTER → 2017-03-29 | Outpatient (CLI) | payer BC, MEDICAID ==
[2017-03-14 14:44] VITALS: BP 107/66
[~2017-03-29] MED LIST changes: +DULO60CA6 PO; +METF-620 PO; -METF10002 PO; -PRAS10TA4 PO; +PRAS10TA9 PO
--- NOTE | 2017-03-29 14:03 | KCIC ---
DEXA scan Indication: Postmenopausal and compression fractures. Bone mineral analysis of the lumbar spine and left hip was performed. The bone mineral density of the lumbar spine L1-L4 is 0.923 with a T-score of-1.1. The bone mineral density of the left femoral neck is 0.710 with a T-score of-1.9. Impression: Osteopenia of the lumbar spine and left femoral neck. Electronically signed by: Chad Canas MD (March 29, 2017 14:01:17)
== END | disposition home or self-care (01) ==
LOC: KCIC DEXA 13:13
PROVIDERS: ATTEND Physician Assistant Surgical
DX: Z78.0 Asymptomatic menopausal state (principal); M48.54XA Collapsed vertebra, not elsewhere classified, thoracic region, initial encounter for fracture; M85.88 Other specified disorders of bone density and structure, other site
CPT/HCPCS: 77080

== ENCOUNTER 2017-04-20 12:47 | Emergency (ER) | payer BC, MEDICAID ==
[~2017-04-20] VITALS: Ht 162.6 cm; Wt 93.4 kg
--- NOTE | 2017-04-20 13:29 | RAD ---
EXAM: Abdomen acute complete. HISTORY: Pain. COMPARISON: 03/31/2016. FINDINGS: A frontal view of the chest and frontal upright and supine views of the abdomen are obtained. There is no infiltrate, effusion or pneumothorax. The heart is normal in size. There is an upper thoracic vertebral body compression fracture with vertebroplasty changes. There is moderate stool within the colon. No abnormally dilated air-filled loop of bowel is seen. There is no free air. There are cholecystectomy clips. There are suspected vascular calcifications overlying the left renal shadow. IMPRESSION: 1. Moderate colonic stool, suggesting a component of constipation. 2. No acute pulmonary finding.
--- NOTE | 2017-04-20 14:12 | PHYS DOC ---
Past Medical History Past Medical History: Anxiety, Bronchitis, COPD, Diabetes-Type II, High Cholesterol, Hypertension, Hyperthyroid, [place] Additional Past Medical Histor: EMPHYSEMA Past Surgical History: Angioplasty, Other Additional Past Surgical Histo: left knee replacementx2, spinal fusion, right knee arthroplasty, CTR Alcohol Use: Rarely Drug Use: None Adult General Chief Complaint Chief Complaint: CONSTIPATION HPI HPI Patient is a 62 year old female who presents to the ED by ambulance with the complaint of abdominal pain that she attributes to constipation. The patient recently had a compression fracture of her spine and 4 days ago was at the hospital for treatment with "cementing". For about 2 weeks, she has had an increased dose of oxycodone 10 mg. She states she had been on 5 mg for quite some time, did not have any trouble with constipation related to that. However, she's been getting constipated for the last 2 weeks and attributes it to the increased dose of opiate. She states the cement treatment did not really help her much. Patient states when she got up this morning she had no abdominal pain. She developed some crampy and sharp abdominal pain that she was not able to have a bowel movement so she called 911. She did not have anyone to drive her to the ED. She has not been taking any laxatives. She's had no nausea or vomiting. No history of bowel obstruction. Patient states her last colonoscopy was about a year ago and it was fine. Patient does have COPD and is chronically on oxygen 4 L at home. Review of Systems Review of Systems Constitutional: Denies fever or chills [] HENT: Denies nasal congestion or sore throat [] Respiratory: Denies cough or shortness of breath [] Cardiovascular: Denies chest pain GI: As in history of present illness : Denies dysuria or hematuria [] Musculoskeletal: As in history of present illness for back pain at the site of compression fracture Integument: Denies rash or skin lesions [] Neurologic: Denies headache, focal weakness or sensory changes [] Allergies Allergies Allergies Coded Allergies Type Severity Reaction Last Updated Verified levofloxacin Allergy Intermediate Hives 03/05/17 Yes Physical Exam Physical Exam Constitutional: Well developed, well nourished, no acute distress, non-toxic appearance. Alert, mentating normally. HENT: Normocephalic, atraumatic, bilateral external ears normal, nose normal. [] Eyes: conjunctiva normal, no discharge. [] Neck: Normal range of motion, no stridor. [] Cardiovascular:Heart rate regular rhythm, no murmur [] Lungs & Thorax: Bilateral breath sounds clear to auscultation [] Abdomen: Bowel sounds normal, soft, no tenderness, no masses, no pulsatile masses. Abdomen mildly distended with mild increased tympany throughout. Essentially no tenderness to palpation on abdominal exam. Benign abdomen. Skin: Warm, dry, no erythema, no rash. [] Extremities: No tenderness, no cyanosis, no clubbing, ROM intact, no edema. [] Neurologic: Alert and oriented X 3, normal motor function, normal sensory function, no focal deficits noted. [] Current Patient Data Vital Signs Vital Signs Date Time Temp Pulse Resp B/P (MAP) Pulse Ox O2 Delivery O2 Flow Rate FiO2 04/20/17 14:15 64 18 168/87 (114) 95 Room Air 04/20/17 13:02 98.7 4.0 98.7 EKG EKG [] Radiology/Procedures Radiology/Procedures Acute abdominal series read by the radiologist. No free air. No obstructive pattern. Moderate amount of stool present. [] Course & Med Decision Making Course & Med Decision Making Pertinent Labs and Imaging studies reviewed. (See chart for details) 62-year-old female presents with abdominal pain and constipation. It does sound like her abdominal pain is likely to be constipation related. Her exam is entirely benign. X-rays consistent with a diagnosis of constipation. We talked about the options. We did consider giving the patient a dose of Relistor. However, she will be discharged to go home and I'm not sure if she would make it home before she had effects. We talked about using it in pill form, she called her pharmacy and they do not stock it. It is not practical for her to get to a different pharmacy. We talked about using MiraLAX and she is comfortable with that plan. She did have a colonoscopy a year ago and she drinks the large quantity of powdered mix for her colonoscopy prep so she is comfortable with that plan. She's not on a fluid restriction. I discussed with the patient that she may take several doses of MiraLAX before she has good results and she is comfortable with going home to give that a try. [] Dragon Disclaimer Dragon Disclaimer This electronic medical record was generated, in whole or in part, using a voice recognition dictation system. Departure Departure Impression: Primary Impression: Abdominal pain Disposition: HOME, SELF-CARE Condition: STABLE Referrals: UNKNOWN PCP NAME (PCP) Patient Instructions: Constipation, Adult, [id number] Additional Instructions: Opiates such as hydrocodone and oxycodone to cause constipation. I recommend that you work with your doctor to decrease your dosage of opiates as soon as you are able to. Today, for constipation and discomfort, purchase a container of MiraLAX or generic. When you get home, mix one dosage in 8 ounces of liquid and take one dose every hour or so until you have good "results". It will probably take several doses, it might even take 8 or 10 doses over 8 or 10 hours. It is safe to do this, this is the same medication we'll use for colonoscopy prep. In the future, you may take MiraLAX 1 or 2 doses every day to help keep from getting this constipated. RICKI PELAYO MD April 20, 2017 14:12
[2017-04-20 14:15] VITALS: BP 168/87
== END 2017-04-20 14:20 | disposition home or self-care (01) ==
LOC: ER 12:47
DX: R10.9 Unspecified abdominal pain (principal); K59.00 Constipation, unspecified; E11.9 Type 2 diabetes mellitus without complications; E05.90 Thyrotoxicosis, unspecified without thyrotoxic crisis or storm; E78.00 Pure hypercholesterolemia, unspecified; I10 Essential (primary) hypertension; J43.9 Emphysema, unspecified; Z95.5 Presence of coronary angioplasty implant and graft; Z96.1 Presence of intraocular lens; I25.2 Old myocardial infarction
CPT/HCPCS: 74022; 99284

== ENCOUNTER → 2017-05-30 | Outpatient (CLI) | payer MEDICARE, MEDICAID ==
[~2017-05-30] MED LIST changes: +BENZ100C15 PO; -BENZ100C2 PO; -CLIN-44 PO; +CLIN150C14 PO; -HYDR-2666 PO; +HYDR-2758 PO; -SUCR1TAB29 PO; +SUCR1TAB35 PO
--- NOTE | 2017-05-30 15:27 | RAD ---
Left RIBS with chest, 3 views, 05/30/2017: History: Twisting injury, pain The bony structures are demineralized. Costochondral ossifications are present. No acute rib fracture is identified. Vertebroplasty changes are noted at 2 levels in the midthoracic spine. The heart size is normal. No pulmonary infiltrates are seen. There is no evidence of pleural fluid or pneumothorax. IMPRESSION: 1. Demineralization. 2. No acute left rib abnormality is detected.
== END | disposition home or self-care (01) ==
LOC: RAD 10:05
PROVIDERS: ATTEND Physician Assistant Surgical
DX: M81.0 Age-related osteoporosis without current pathological fracture (principal); R07.81 Pleurodynia
CPT/HCPCS: 71101

== ENCOUNTER 2017-06-27 19:24 | Inpatient (IN) | payer MEDICARE, MEDICAID ==
[~2017-06-27] VITALS: Ht 162.6 cm; Wt 93.9 kg
[2017-06-27] MEDS ORDERED: NITROGLYCERIN OINT 1 GM PACKET. TP ONE (20:00)
[2017-06-27] MEDS ORDERED: IPRATRPIUM/ALBUTEROL 0.5/2.5MG 3 ML NEBU. NEB ONE (20:00)
[2017-06-27] MEDS ORDERED: ASPIRIN ENTERIC COATED 325 MG TABLET.DR. PO ONE (20:00)
[2017-06-27] MEDS ORDERED: ALBUTEROL SULFATE 2.5 MG/3 ML NEBU. NEB ONE (20:00)
[2017-06-27] MEDS ORDERED: NITROGLYCERIN SUBLINGUAL 0.4 MG BOTTLE OF 25. SL PRN (20:00)
[2017-06-27 20:06] LABS: BASO % 0 % (0-3); EOS % 2 % (0-3); HEMATOCRIT 35.1 % (36.0-47.0); HEMOGLOBIN 11.6 g/dL (12.0-15.5); LYMPH # 1.6 x10^3/uL (1.0-4.8); LYMPH % 18 % (24-48); MEAN CORPUSCULAR HEMOGLOBIN 29 pg (25-35); MEAN CORPUSCULAR HGB CONC 33 g/dL (31-37); MEAN CORPUSCULAR VOLUME 89 fL (79-100); MONO % 7 % (0-9); NEUT % 73 % (31-73); PLATELET COUNT 233 x10^3/uL (140-400); RED BLOOD COUNT 3.95 x10^6/uL (3.50-5.40); RED CELL DISTRIBUTION WIDTH 12.3 % (11.5-14.5); WHITE BLOOD COUNT 8.7 x10^3/uL (4.0-11.0)
--- NOTE | 2017-06-27 20:09 | PHYS DOC ---
Past Medical History Past Medical History: Anxiety, Bronchitis, COPD, Diabetes-Type II, High Cholesterol, Hypertension, Hyperthyroid, [place] Additional Past Medical Histor: EMPHYSEMA Past Surgical History: Angioplasty, Other Additional Past Surgical Histo: left knee replacementx2, spinal fusion, right knee arthroplasty, CTR, Alcohol Use: Rarely Drug Use: None Adult General Chief Complaint Chief Complaint: SHORTNESS OF BREATH HPI HPI Patient is a 62 year old female presenting to the emergency department for evaluation of chest pain shortness of breath that became much worse approximately 2 hours ago while she was shopping. She was not particularly exerting herself that she has left-sided tightness with no radiation but makes her nauseated diaphoretic and short of breath. Does have COPD and is on 3 L of oxygen at baseline and her lung sounds are very diminished. Has had a heart catheter in the past and has had one stent placed and she follows with the cardiology services here at [facility]. She is nontoxic appearing but does appear somewhat short of breath. Review of Systems Review of Systems Constitutional: Denies fever or chills [] Eyes: Denies change in visual acuity, redness, or eye pain [] HENT: Denies nasal congestion or sore throat [] Respiratory: Denies cough. + shortness of breath [] Cardiovascular: + CP GI: Denies abdominal pain, nausea, vomiting, bloody stools or diarrhea [] : Denies dysuria or hematuria [] Musculoskeletal: Denies back pain or joint pain [] Integument: Denies rash or skin lesions [] Neurologic: Denies headache, focal weakness or sensory changes [] Current Medications Current Medications Current Medications Medications (Trade) Dose Ordered Sig/Juan Start Time Stop Time Status Last Admin Dose Admin Albuterol Sulfate (Ventolin Neb Soln) 5 mg 1X ONCE 06/27/17 20:00 06/27/17 20:01 DC 06/27/17 20:08 5 MG Albuterol/ Ipratropium (Duoneb) 3 ml 1X ONCE 06/27/17 20:00 06/27/17 20:01 DC 06/27/17 20:08 3 ML Aspirin (Ecotrin) 325 mg 1X ONCE 06/27/17 20:00 06/27/17 20:01 DC 06/27/17 20:17 325 MG Fentanyl Citrate (Fentanyl 2ml Vial) 50 mcg PRN Q2HR PRN 06/27/17 21:00 06/28/17 20:59 Furosemide (Lasix) 40 mg 1X ONCE 06/27/17 21:30 06/27/17 21:31 Labetalol HCl (Normodyne) 15 mg PRN Q10MIN PRN 06/27/17 21:00 Methylprednisolone Sodium Succinate (SOLU-Medrol 125MG VIAL) 125 mg 1X ONCE 06/27/17 21:00 06/27/17 21:01 DC 06/27/17 20:53 125 MG Nitroglycerin (Nitro-Bid Oint) 1 inch 1X ONCE 06/27/17 20:00 06/27/17 20:01 DC 06/27/17 20:17 1 INCH Nitroglycerin (Nitrostat) 0.4 mg PRN Q5MIN PRN 06/27/17 20:00 06/27/17 20:54 0.4 MG Ondansetron HCl (Zofran) 4 mg PRN Q8HRS PRN 06/27/17 21:00 06/28/17 20:59 Allergies Allergies Allergies Coded Allergies Type Severity Reaction Last Updated Verified levofloxacin Allergy Intermediate Hives 03/05/17 Yes Physical Exam Physical Exam Constitutional: Well developed, well nourished, no acute distress, non-toxic appearance. [] HENT: Normocephalic, atraumatic, bilateral external ears normal, oropharynx moist, no oral exudates, nose normal. [] Eyes: PERRLA, EOMI, conjunctiva normal, no discharge. [] Neck: Normal range of motion, no tenderness, supple, no stridor. [] Cardiovascular:Heart rate regular rhythm but tachycardic Lungs & Thorax: Bilateral breath sounds diminished with inspiratory and expiratory wheezing noted Abdomen: Bowel sounds normal, soft, no tenderness, no masses, no pulsatile masses. [] Skin: Warm, dry, no erythema, no rash. [] Back: No tenderness, no CVA tenderness. [] Extremities: No tenderness, no cyanosis, no clubbing, ROM intact, no edema. [] Neurologic: Alert and oriented X 3, normal motor function, normal sensory function, no focal deficits noted. [] Current Patient Data Vital Signs Vital Signs Date Time Temp Pulse Resp B/P (MAP) Pulse Ox O2 Delivery O2 Flow Rate FiO2 06/27/17 20:54 107 204/101 06/27/17 20:34 98 Nasal Cannula 3.0 06/27/17 20:16 34 06/27/17 19:29 99.2 99.2 Lab Values Laboratory Tests Test 06/27/17 19:40 White Blood Count 8.7 x10^3/uL (4.0-11.0) Red Blood Count 3.95 x10^6/uL (3.50-5.40) Hemoglobin 11.6 g/dL (12.0-15.5) L Hematocrit 35.1 % (36.0-47.0) L Mean Corpuscular Volume 89 fL (79-100) Mean Corpuscular Hemoglobin 29 pg (25-35) Mean Corpuscular Hemoglobin Concent 33 g/dL (31-37) Red Cell Distribution Width 12.3 % (11.5-14.5) Platelet Count 233 x10^3/uL (140-400) Neutrophils (%) (Auto) 73 % (31-73) Lymphocytes (%) (Auto) 18 % (24-48) L Monocytes (%) (Auto) 7 % (0-9) Eosinophils (%) (Auto) 2 % (0-3) Basophils (%) (Auto) 0 % (0-3) Neutrophils # (Auto) 6.4 x10^3uL (1.8-7.7) Lymphocytes # (Auto) 1.6 x10^3/uL (1.0-4.8) Monocytes # (Auto) 0.6 x10^3/uL (0.0-1.1) Eosinophils # (Auto) 0.1 x10^3/uL (0.0-0.7) Basophils # (Auto) 0.0 x10^3/uL (0.0-0.2) Prothrombin Time 13.5 SEC (11.7-14.0) Prothrombin Time INR 1.1 (0.8-1.1) PTT 32 SEC (24-38) Sodium Level 139 mmol/L (136-145) Potassium Level 3.8 mmol/L (3.5-5.1) Chloride Level 99 mmol/L (98-107) Carbon Dioxide Level 31 mmol/L (21-32) Anion Gap 9 (6-14) Blood Urea Nitrogen 9 mg/dL (7-20) Creatinine 1.1 mg/dL (0.6-1.0) H Estimated GFR (Cockcroft-Gault) 50.2 BUN/Creatinine Ratio 8 (6-20) Glucose Level 182 mg/dL (70-99) H Calcium Level 9.3 mg/dL (8.5-10.1) Magnesium Level 1.3 mg/dL (1.8-2.4) L Total Bilirubin 0.4 mg/dL (0.2-1.0) Aspartate Amino Transferase (AST) 24 U/L (15-37) Alanine Aminotransferase (ALT) 24 U/L (14-59) Alkaline Phosphatase 76 U/L (46-116) Troponin I Quantitative < 0.017 ng/mL (0.000-0.055) FO-Voj-H-Type Natriuretic Peptide 2684 pg/mL (0-124) H Total Protein 8.0 g/dL (6.4-8.2) Albumin 3.7 g/dL (3.4-5.0) Albumin/Globulin Ratio 0.9 (1.0-1.7) L Lipase 99 U/L (73-393) Laboratory Tests 06/27/17 19:40 Laboratory Tests 06/27/17 19:40 EKG EKG Sinus tachycardia at 120 beats per minutes with normal axis no obvious ST elevation but there is ST depression in her lateral leads with normal T waves. Radiology/Procedures Radiology/Procedures Chest x-ray shows normal heart size normal mediastinum with no free air pneumothorax or opacity but there is some evidence of interstitial edema. Course & Med Decision Making Course & Med Decision Making Differential is wide including pulmonary embolism however she has baseline oxygen saturation it appears more consistent with congestive heart failure and COPD exacerbation. Her blood pressure was quite elevated and her breathing improved with multiple breathing treatments in addition to sublingual nitroglycerin and Nitropaste. Additional labetalol ordered for systolic blood pressure above 180 as well. Patient's breathing improved and her pain improved as well with the nitroglycerin. Given her multiple lab abnormalities in addition to her clinical status and colitides she will be admitted for further observation and treatment. Critical care time of 35 minutes. Dragon Disclaimer Dragon Disclaimer This electronic medical record was generated, in whole or in part, using a voice recognition dictation system. Departure Departure Impression: Primary Impression: CHF (congestive heart failure) Additional Impressions: Chest pain COPD exacerbation Hypertensive emergency Disposition: 09 ADMITTED INPATIENT Admitting Physician: Teo Waldrop Condition: GUARDED Referrals: UNKNOWN PCP NAME (PCP) Problem Qualifiers Primary Impression: CHF (congestive heart failure) Congestive heart failure type: unspecified congestive heart failure type Congestive heart failure chronicity: acute on chronic Qualified Codes: I50.9 - Heart failure, unspecified FREDI RAPP DO Jun 27, 2017 20:09
[2017-06-27 20:19] LABS: INR 1.1 (0.8-1.1); PROTHROMBIN TIME PATIENT 13.5 SEC (11.7-14.0)
[2017-06-27 20:26] LABS: CALCIUM 9.3 mg/dL (8.5-10.1); CREATININE 1.1 mg/dL (0.6-1.0); GFR 50.2; POTASSIUM 3.8 mmol/L (3.5-5.1)
[2017-06-27 20:32] LABS: ALBUMIN 3.7 g/dL (3.4-5.0); ALBUMIN/GLOBULIN RATIO 0.9 (1.0-1.7); MAGNESIUM 1.3 mg/dL (1.8-2.4); TOTAL BILIRUBIN 0.4 mg/dL (0.2-1.0)
[2017-06-27] MEDS ORDERED: ONDANSETRON PF 4 MG/2 ML VIAL. IV PRN (21:00)
[2017-06-27] MEDS ORDERED: LABETALOL 20 MG/4 ML DISP.SYRIN. IVP PRN (21:00)
[2017-06-27] MEDS ORDERED: methylPREDNISolone SOD SUCC PF 125 MG/2 ML VIAL. IV ONE (21:00)
[2017-06-27] MEDS ORDERED: fentaNYL PF VIAL 100 MCG/2 ML VIAL IV PRN (21:00)
[2017-06-27] MEDS ORDERED: FUROSEMIDE 40 MG/4 ML VIAL. IVP ONE (21:30)
[2017-06-27 21:37] LABS: BILIRUBIN,URINE NEGATIVE (NEG); GLUCOSE,URINE 100 mg/dL (NEG); NITRITE,URINE NEGATIVE (NEG); PROTEIN,URINE 30 mg/dL (NEG-TRACE); UROBILINOGEN,URINE 0.2 mg/dL (0.2 mg/dL)
[2017-06-27 21:54] LABS: BACTERIA,URINE 0 /HPF (0-FEW); RBC,URINE OCC /HPF (0-2); SQUAMOUS EPITHELIAL CELL,UR FEW /LPF; WBC,URINE OCC /HPF (0-4)
[2017-06-27 22:41] VITALS: BP 162/68
[2017-06-27 22:42] VITALS: BP 162/68
--- NOTE | 2017-06-28 02:15 | ACF ---
Admission Forms Criteria HEART FAILURE: COMMON COMPLICATIONS (Place 'X' for any and all applicable criteria): Ongoing inpatient care may be indicated for heart failure with 1 or more of the following (1)(2)(3)(4)(5)(6)(7)(8): [ ]I. New-onset heart failure [ ]II. Acute cardiac ischemia causing or associated with failure [ ]III. Ongoing need for care for primary condition requiring frequent therapy adjustments because of changes in cardiac function (eg, drug dosage changes for drugs that are renally metabolized) [X]IV. Complications of heart failure, including 1 or more of the following: [ ]a) Hemodynamic instability [ ]b) Pericardial effusion [ ]c) Symptomatic pleural effusion [ ]d) Hypoxemia [ ]e) Tachypnea [X]f) Dyspnea [ ]g) Syncope [ ]h) Altered mental status [ ]i) Acute renal insufficiency that is severe (reduction of more than 50% in estimated glomerular filtration rate from baseline) or progressive reduction of more than 25% in estimated glomerular filtration rate from baseline, with creatinine continuing to rise) [ ]j) Debilitating anasarca (eg tissue breakdown with infection, inability to void due to edema) (E) [ ]k) Clinically significant metabolic abnormalities due to heart failure (eg, new-onset metabolic acidosis) Extended stay may be needed until ALL of the following are present (1)(3)(18)(41 )(55) [ ]a) Hemodynamic stability [ ]b) Stable and effective diuretic regimen established (or patient on stable dialysis regimen if in chronic renal failure) [ ]c) Volume status acceptable on oral medication [ ]d) Breathing comfortably at rest [ ]e) Saturation of arterial oxygen greater than 90% or at acceptable baseline [ ]f) Pulmonary edema absent or improved [ ]g) Peripheral or sacral edema absent or improved [ ]h) Renal function stable and manageable at a lower level of care [ ]i) Complications (eg, pleural effusion) resolved or manageable at a lower level of care [ ]g) Patient or caregiver has received written discharge instructions or educational material addressing activity level, diet, discharge medications, follow-up appointment, weight monitoring, and what to do if symptoms worsen.(25)(26) The original [facility] Outcome Referrals content created by Lyn YeungMeludialivier has been revised. The portions of the content which have been revised are identified through the use of italic text, and [facility] has neither reviewed nor approved the modified material.All other unmodified content is copyright [facility]. Please see references footnoted in the original [facility] edition 2015 Admission Criteria Met?: Yes DONNA CRONIN Jun 28, 2017 02:15
[2017-06-28 03:07] VITALS: BP 162/89
[2017-06-28 04:19] LABS: CALCIUM 8.7 mg/dL (8.5-10.1); CREATININE 1.1 mg/dL (0.6-1.0); GFR 50.2; POTASSIUM 4.2 mmol/L (3.5-5.1)
[2017-06-28 04:39] LABS: BASO % 0 % (0-3); EOS % 0 % (0-3); LYMPH # 0.7 x10^3/uL (1.0-4.8); LYMPH % 11 % (24-48); MEAN CORPUSCULAR HEMOGLOBIN 29 pg (25-35); MEAN CORPUSCULAR HGB CONC 32 g/dL (31-37); MEAN CORPUSCULAR VOLUME 89 fL (79-100); MONO % 1 % (0-9); NEUT % 88 % (31-73); PLATELET COUNT 240 x10^3/uL (140-400); RED BLOOD COUNT 3.83 x10^6/uL (3.50-5.40); WHITE BLOOD COUNT 7.1 x10^3/uL (4.0-11.0)
[2017-06-28] MEDS ORDERED: VALA500T PO (05:43)
[2017-06-28] MEDS ORDERED: CITA40TA5 PO (05:43)
[2017-06-28] MEDS ORDERED: VALS160T3 PO (05:43)
--- NOTE | 2017-06-28 06:04 | EKG ---
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
[2017-06-28 07:00] VITALS: BP 124/79
--- NOTE | 2017-06-28 07:28 | RAD ---
AP chest radiograph 06/27/2017 Clinical indication: Shortness of air, hypertension, COPD. Comparison: 05/30/2017 chest radiograph Findings: Cardiac and mediastinal silhouettes are within normal limits. There are scattered areas of minor pleural-parenchymal scarring and both lungs. No pleural effusion, pneumothorax or focal consolidation. Impression: Bibasilar scarring with no acute cardiopulmonary abnormality.
[2017-06-28] MEDS ORDERED: DEXTROSE 50% 25 GM / 50ML DISP.SYRIN. IV PRN (09:00)
--- NOTE | 2017-06-28 09:53 | PDOC1 ---
History and Physical Date of Admission Date of Admission DATE: 06/27/17 Identification/Chief Complaint Chief Complaint CP and very high Bp Problems: Source Source: Chart review, Patient History of Present Illness History of Present Illness Patient is a 62 year old female presenting to the emergency department for evaluation of chest pain shortness of breath that became much worse approximately 2 hours ago while she was shopping with friend she did not feel good and checked Bp was very high at 207/123 , She was not particularly exerting herself that she has left-sided tightness with no radiation but felt nauseated diaphoretic and short of breath. has hx of COPD and is on 3 L of oxygen at baseline and her lung sounds are very diminished. Has had a heart catheter in the past and has had one stent placed and she follows with the cardiology services here at [facility]. She is nontoxic appearing but does appear somewhat short of breath. Past Medical History Cardiovascular: CAD, HTN, NE, Hyperlipidemia, Valve insufficiency, Pulmonary hypertension Pulmonary: COPD, Other CENTRAL NERVOUS SYSTEM: Carpal Tunnel Syndrome, Periperal neuropathy GI: GERD Heme/Onc: No pertinent hx Hepatobiliary: No pertinent hx Psych: Anxiety, Depression Musculoskeletal: low back pain, Osteoarthritis, Other Rheumatologic: No pertinent hx Infectious disease: Herpes simplex2 Renal/: No pertinent hx, UTI, Urinary Incontinence Endocrine: Diabetes, Hypothyroidism, Osteoporosis Past Surgical History Past Surgical History: Cholecystectomy, Total knee replacement, Tubal Ligation , Hysterectomy, Other (bilateral CTS repair) Family History Family History: Diabetes, Heart Disease, High Cholestrol, Hypertension, Other Social History Smoke: Quit ALCOHOL: none Drugs: None Current Problem List Problem List Problems Medical Problems: (1) Chest pain Status: Acute (2) CHF (congestive heart failure) Status: Acute (3) COPD exacerbation Status: Acute (4) Hypertensive emergency Status: Acute Problems: Current Medications Current Medications Current Medications Albuterol/ Ipratropium (Duoneb) 3 ml 1X ONCE NEB Last administered on 20:08; Start 06/27/17 at 20:00; Stop 06/27/17 at 20:01; Status DC Albuterol Sulfate (Ventolin Neb Soln) 5 mg 1X ONCE NEB Last administered on 20:08; Start 06/27/17 at 20:00; Stop 06/27/17 at 20:01; Status DC Aspirin (Ecotrin) 325 mg 1X ONCE PO Last administered on 06/27/17 20:17; Start 06/27/17 at 20:00; Stop 06/27/17 at 20:01; Status DC Nitroglycerin (Nitrostat) 0.4 mg PRN Q5MIN PRN SL CHEST PAIN Last administered on 06/27/17 20:54; Start 06/27/17 at 20:00 Nitroglycerin (Nitro-Bid Oint) 1 inch 1X ONCE TP Last administered on 20:17; Start 06/27/17 at 20:00; Stop 06/27/17 at 20:01; Status DC Methylprednisolone Sodium Succinate (SOLU-Medrol 125MG VIAL) 125 mg 1X ONCE IV Last administered on 06/27/17 20:53; Start 06/27/17 at 21:00; Stop 06/27/17 at 21:01; Status DC Ondansetron HCl (Zofran) 4 mg PRN Q8HRS PRN IV NAUSEA/VOMITING; Start 06/27/17 at 21:00; Stop 06/28/17 at 20:59 Fentanyl Citrate (Fentanyl 2ml Vial) 50 mcg PRN Q2HR PRN IV PAIN Last administered on 06/27/17 22:39; Start 06/27/17 at 21:00; Stop 06/28/17 at 20:59 Furosemide (Lasix) 40 mg 1X ONCE IVP Last administered on 06/27/17 21:07; Start 06/27/17 at 21:30; Stop 06/27/17 at 21:31; Status DC Labetalol HCl (Normodyne) 15 mg PRN Q10MIN PRN IVP SBP>180 OR DBP>90 Last administered on 06/27/17 21:44; Start 06/27/17 at 21:00 Insulin Aspart (NovoLOG) 0-7 UNITS TIDWMEALS SQ ; Start 06/28/17 at 12:00 Dextrose (Dextrose 50%-Water Syringe) 12.5 gm PRN Q15MIN PRN IV SEE COMMENTS; Start 06/28/17 at 09:00 Amlodipine Besylate (Norvasc) 5 mg DAILY PO ; Start 06/29/17 at 09:00; Status UNV Aspirin (Ecotrin) 81 mg DAILY PO ; Start 06/29/17 at 09:00; Status UNV Atorvastatin Calcium (Lipitor) 20 mg DAILY PO ; Start 06/29/17 at 09:00; Status UNV Isosorbide Mononitrate (Imdur) 30 mg DAILY PO ; Start 06/29/17 at 09:00; Status UNV Levothyroxine Sodium (Synthroid) 88 mcg DAILY06 PO ; Start 06/29/17 at 06:00; Status UNV Metformin HCl (Glucophage) 1,000 mg BID PO ; Start 06/28/17 at 21:00; Status UNV Metoprolol Succinate (Toprol Xl) 50 mg DAILY PO ; Start 06/29/17 at 09:00; Status UNV Prasugrel (Effient) 10 mg DAILYWBKFT PO ; Start 06/29/17 at 08:00; Status UNV Sucralfate (Carafate) 1 gm QIDACHS PO ; Start 06/28/17 at 11:30; Status UNV Valacyclovir HCl (Valtrex) 500 mg BID PO ; Start 06/28/17 at 21:00; Status UNV Non-Formulary Medication 40 mg DAILY PO ; Start 06/29/17 at 09:00; Status UNV Non-Formulary Medication 1 cap DAILY PO ; Start 06/29/17 at 09:00; Status UNV Non-Formulary Medication 160 mg DAILY PO ; Start 06/29/17 at 09:00; Status UNV Non-Formulary Medication 160 mg DAILY PO ; Start 06/29/17 at 09:00; Status UNV Methylprednisolone Sodium Succinate (SOLU-Medrol 40MG VIAL) 40 mg Q8HRS IV ; Start 06/28/17 at 14:00; Status UNV Furosemide (Lasix) 20 mg DAILY PO ; Start 06/29/17 at 09:00; Status UNV Potassium Chloride (Klor-Con) 10 meq DAILYWBKFT PO ; Start 06/29/17 at 08:00; Status UNV Active Scripts Active Amlodipine Besylate 2.5 Mg Tablet 5 Mg PO DAILY 30 Days Carafate (Sucralfate) 1 Gm Tablet 1 Gm PO QIDACHS 30 Days Effient (Prasugrel Hcl) 10 Mg Tablet 10 Mg PO DAILYWBKFT Reported Citalopram Hbr (Citalopram Hydrobromide) 40 Mg Tablet 40 Mg PO DAILY Diovan (Valsartan) 160 Mg Tablet 160 Mg PO DAILY Valacyclovir (Valacyclovir Hcl) 500 Mg Tablet 500 Mg PO BID Atorvastatin Calcium 20 Mg Tablet 20 Mg PO DAILY Isosorbide Mononitrate Er (Isosorbide Mononitrate) 30 Mg Tab.er.24h 30 Mg PO DAILY Levothyroxine Sodium 88 Mcg Tablet 88 Mcg PO DAILY06 Nexium Capsule (Esomeprazole Magnesium) 40 Mg Capsule.dr 1 Cap PO DAILY Metoprolol Succinate ( Xl ) (Metoprolol Succinate) 25 Mg Tab.er.24h 2 Tab PO DAILY Aspir 81 (Aspirin) 81 Mg Tablet.dr 1 Tab PO DAILY Fenofibrate (Fenofibrate Nanocrystallized) 145 Mg Tablet 160 Mg PO DAILY Metformin Hcl 1,000 Mg Tablet 1,000 Mg PO BID Allergies Allergies: Coded Allergies: levofloxacin (Verified Allergy, Intermediate, Hives, 03/05/17) ROS HEENT: YES: Heacaches Respiratory: YES: Shortness of breath, SOB with excertion, Tachypnea, Wheezing Cardiovascular: yes Chest Pain, yes Paroxysmal Noc. Dyspnea, yes Edema Gastrointestinal: Yes Nausea Genitourinary: YES Frequency Musculoskeletal: Yes Joint Pain Physical Exam General: Alert, Oriented X3, Cooperative HEENT: Atraumatic, PERRLA Lungs: Other (decrease BS and poor air movement) Heart: RRR Abdomen: Normal bowel sounds, Soft, No tenderness, No masses Extremities: No clubbing, No cyanosis, Other (trace edema bilateral LE) Skin: No rashes, No breakdown Neuro: Normal speech, Strength at 5/5 X4 ext Psych/Mental Status: Mental status NL Vitals Vitals Vital Signs Date Time Temp Pulse Resp B/P (MAP) Pulse Ox O2 Delivery O2 Flow Rate FiO2 06/28/17 08:00 Nasal Cannula 3.0 06/28/17 07:00 97.6 86 22 124/79 (94) 97 97.6 Labs Labs Laboratory Tests Test 06/27/17 19:40 06/27/17 21:32 06/28/17 03:00 06/28/17 07:27 White Blood Count 8.7 x10^3/uL (4.0-11.0) 7.1 x10^3/uL (4.0-11.0) Red Blood Count 3.95 x10^6/uL (3.50-5.40) 3.83 x10^6/uL (3.50-5.40) Hemoglobin 11.6 g/dL (12.0-15.5) 11.0 g/dL (12.0-15.5) Hematocrit 35.1 % (36.0-47.0) 34.0 % (36.0-47.0) Mean Corpuscular Volume 89 fL (79-100) 89 fL (79-100) Mean Corpuscular Hemoglobin 29 pg (25-35) 29 pg (25-35) Mean Corpuscular Hemoglobin Concent 33 g/dL (31-37) 32 g/dL (31-37) Red Cell Distribution Width 12.3 % (11.5-14.5) 12.0 % (11.5-14.5) Platelet Count 233 x10^3/uL (140-400) 240 x10^3/uL (140-400) Neutrophils (%) (Auto) 73 % (31-73) 88 % (31-73) Lymphocytes (%) (Auto) 18 % (24-48) 11 % (24-48) Monocytes (%) (Auto) 7 % (0-9) 1 % (0-9) Eosinophils (%) (Auto) 2 % (0-3) 0 % (0-3) Basophils (%) (Auto) 0 % (0-3) 0 % (0-3) Neutrophils # (Auto) 6.4 x10^3uL (1.8-7.7) 6.2 x10^3uL (1.8-7.7) Lymphocytes # (Auto) 1.6 x10^3/uL (1.0-4.8) 0.7 x10^3/uL (1.0-4.8) Monocytes # (Auto) 0.6 x10^3/uL (0.0-1.1) 0.1 x10^3/uL (0.0-1.1) Eosinophils # (Auto) 0.1 x10^3/uL (0.0-0.7) 0.0 x10^3/uL (0.0-0.7) Basophils # (Auto) 0.0 x10^3/uL (0.0-0.2) 0.0 x10^3/uL (0.0-0.2) Prothrombin Time 13.5 SEC (11.7-14.0) Prothromb Time International Ratio 1.1 (0.8-1.1) Activated Partial Thromboplast Time 32 SEC (24-38) Sodium Level 139 mmol/L (136-145) 137 mmol/L (136-145) Potassium Level 3.8 mmol/L (3.5-5.1) 4.2 mmol/L (3.5-5.1) Chloride Level 99 mmol/L (98-107) 98 mmol/L (98-107) Carbon Dioxide Level 31 mmol/L (21-32) 31 mmol/L (21-32) Anion Gap 9 (6-14) 8 (6-14) Blood Urea Nitrogen 9 mg/dL (7-20) 12 mg/dL (7-20) Creatinine 1.1 mg/dL (0.6-1.0) 1.1 mg/dL (0.6-1.0) Estimated GFR (Cockcroft-Gault) 50.2 50.2 BUN/Creatinine Ratio 8 (6-20) Glucose Level 182 mg/dL (70-99) 312 mg/dL (70-99) Calcium Level 9.3 mg/dL (8.5-10.1) 8.7 mg/dL (8.5-10.1) Magnesium Level 1.3 mg/dL (1.8-2.4) Total Bilirubin 0.4 mg/dL (0.2-1.0) Aspartate Amino Transf (AST/SGOT) 24 U/L (15-37) Alanine Aminotransferase (ALT/SGPT) 24 U/L (14-59) Alkaline Phosphatase 76 U/L (46-116) Troponin I Quantitative < 0.017 ng/mL (0.000-0.055) < 0.017 ng/mL (0.000-0.055) VQ-Edz-N-Type Natriuretic Peptide 2684 pg/mL (0-124) Total Protein 8.0 g/dL (6.4-8.2) Albumin 3.7 g/dL (3.4-5.0) Albumin/Globulin Ratio 0.9 (1.0-1.7) Lipase 99 U/L (73-393) Urine Collection Type Unknown Urine Color Yellow Urine Clarity Clear Urine pH 8.0 Urine Specific [place] 1.010 Urine Protein 30 mg/dL (NEG-TRACE) Urine Glucose (UA) 100 mg/dL (NEG) Urine Ketones (Stick) Negative mg/dL (NEG) Urine Blood Negative (NEG) Urine Nitrite Negative (NEG) Urine Bilirubin Negative (NEG) Urine Urobilinogen Dipstick 0.2 mg/dL (0.2 mg/dL) Urine Leukocyte Esterase Negative (NEG) Urine RBC Occ /HPF (0-2) Urine WBC Occ /HPF (0-4) Urine Squamous Epithelial Cells Few /LPF Urine Bacteria 0 /HPF (0-FEW) Urine Mucus Slight /LPF Glucose (Fingerstick) 276 mg/dL (70-99) Test 06/28/17 08:45 Troponin I Quantitative < 0.017 ng/mL (0.000-0.055) Laboratory Tests Test 06/27/17 19:40 06/27/17 21:32 06/28/17 03:00 06/28/17 07:27 White Blood Count 8.7 x10^3/uL (4.0-11.0) 7.1 x10^3/uL (4.0-11.0) Red Blood Count 3.95 x10^6/uL (3.50-5.40) 3.83 x10^6/uL (3.50-5.40) Hemoglobin 11.6 g/dL (12.0-15.5) 11.0 g/dL (12.0-15.5) Hematocrit 35.1 % (36.0-47.0) 34.0 % (36.0-47.0) Mean Corpuscular Volume 89 fL (79-100) 89 fL (79-100) Mean Corpuscular Hemoglobin 29 pg (25-35) 29 pg (25-35) Mean Corpuscular Hemoglobin Concent 33 g/dL (31-37) 32 g/dL (31-37) Red Cell Distribution Width 12.3 % (11.5-14.5) 12.0 % (11.5-14.5) Platelet Count 233 x10^3/uL (140-400) 240 x10^3/uL (140-400) Neutrophils (%) (Auto) 73 % (31-73) 88 % (31-73) Lymphocytes (%) (Auto) 18 % (24-48) 11 % (24-48) Monocytes (%) (Auto) 7 % (0-9) 1 % (0-9) Eosinophils (%) (Auto) 2 % (0-3) 0 % (0-3) Basophils (%) (Auto) 0 % (0-3) 0 % (0-3) Neutrophils # (Auto) 6.4 x10^3uL (1.8-7.7) 6.2 x10^3uL (1.8-7.7) Lymphocytes # (Auto) 1.6 x10^3/uL (1.0-4.8) 0.7 x10^3/uL (1.0-4.8) Monocytes # (Auto) 0.6 x10^3/uL (0.0-1.1) 0.1 x10^3/uL (0.0-1.1) Eosinophils # (Auto) 0.1 x10^3/uL (0.0-0.7) 0.0 x10^3/uL (0.0-0.7) Basophils # (Auto) 0.0 x10^3/uL (0.0-0.2) 0.0 x10^3/uL (0.0-0.2) Prothrombin Time 13.5 SEC (11.7-14.0) Prothromb Time International Ratio 1.1 (0.8-1.1) Activated Partial Thromboplast Time 32 SEC (24-38) Sodium Level 139 mmol/L (136-145) 137 mmol/L (136-145) Potassium Level 3.8 mmol/L (3.5-5.1) 4.2 mmol/L (3.5-5.1) Chloride Level 99 mmol/L (98-107) 98 mmol/L (98-107) Carbon Dioxide Level 31 mmol/L (21-32) 31 mmol/L (21-32) Anion Gap 9 (6-14) 8 (6-14) Blood Urea Nitrogen 9 mg/dL (7-20) 12 mg/dL (7-20) Creatinine 1.1 mg/dL (0.6-1.0) 1.1 mg/dL (0.6-1.0) Estimated GFR (Cockcroft-Gault) 50.2 50.2 BUN/Creatinine Ratio 8 (6-20) Glucose Level 182 mg/dL (70-99) 312 mg/dL (70-99) Calcium Level 9.3 mg/dL (8.5-10.1) 8.7 mg/dL (8.5-10.1) Magnesium Level 1.3 mg/dL (1.8-2.4) Total Bilirubin 0.4 mg/dL (0.2-1.0) Aspartate Amino Transf (AST/SGOT) 24 U/L (15-37) Alanine Aminotransferase (ALT/SGPT) 24 U/L (14-59) Alkaline Phosphatase 76 U/L (46-116) Troponin I Quantitative < 0.017 ng/mL (0.000-0.055) < 0.017 ng/mL (0.000-0.055) JF-Ucs-T-Type Natriuretic Peptide 2684 pg/mL (0-124) Total Protein 8.0 g/dL (6.4-8.2) Albumin 3.7 g/dL (3.4-5.0) Albumin/Globulin Ratio 0.9 (1.0-1.7) Lipase 99 U/L (73-393) Urine Collection Type Unknown Urine Color Yellow Urine Clarity Clear Urine pH 8.0 Urine Specific [place] 1.010 Urine Protein 30 mg/dL (NEG-TRACE) Urine Glucose (UA) 100 mg/dL (NEG) Urine Ketones (Stick) Negative mg/dL (NEG) Urine Blood Negative (NEG) Urine Nitrite Negative (NEG) Urine Bilirubin Negative (NEG) Urine Urobilinogen Dipstick 0.2 mg/dL (0.2 mg/dL) Urine Leukocyte Esterase Negative (NEG) Urine RBC Occ /HPF (0-2) Urine WBC Occ /HPF (0-4) Urine Squamous Epithelial Cells Few /LPF Urine Bacteria 0 /HPF (0-FEW) Urine Mucus Slight /LPF Glucose (Fingerstick) 276 mg/dL (70-99) Test 06/28/17 08:45 Troponin I Quantitative < 0.017 ng/mL (0.000-0.055) VTE Prophylaxis Ordered VTE Prophylaxis Devices: Yes VTE Pharmacological Prophylaxi: Yes Assessment/Plan Assessment/Plan 1- Chest pain 2-Hx CAD 3.acute respiratory failure on chronic due to COPD with exacerbation 4. pulmonary HTN last echo 03/11 5-Diastolic CHF 6.DM II 7. HTN with exacerbation 8.HLD 9. Hypothyroidism admitted serial enzymes , C.V consult, lasix, steroids, bronchodilators . AURA TEJEDA MD Jun 28, 2017 09:53
[2017-06-28] MEDS: amLODIPine BESYLATE 5 MG TABLET PO SCH (10:00)
[2017-06-28 10:27] LABS: PLT ESTIMATE ADEQUATE (ADEQUATE)
--- NOTE | 2017-06-28 10:33 | PDOC2 ---
CARDIAC CONSULT DATE OF CONSULT Date of Consult DATE: 06/28/17 TIME: 10:24 REASON FOR CONSULT Reason for Consult: Chest pain REFERRING PHYSICIAN Referring Physician: Dr. Grimes SOURCE Source: Chart review, Patient HISTORY OF PRESENT ILLNESS HISTORY OF PRESENT ILLNESS /This is a 62 yo female, well known to us from previous visits, who presented with complaints of chest pain and SOA. Patient was at grocery store yesterday. Checked blood pressure while waiting for prescriptions. Noted at 199/126. Continue shopping. Began to have pain in her left chest. Radiated through to her back. Associated with shortness of breath and diaphoresis. No nausea/ vomiting or palpitations. Pain worse with deep breathing. Also intensified with pressing on left chest. When home, pain persisted so she called EMS. Reports having intermittent chest pain for the last couple of weeks. Reports high stress levels and feels anxious frequently. Also has chronic SOA, but reports has been worse over the last couple of weeks. In this period, has noted some increased pedal edema. Reports compliance with medications. PAST MEDICAL HISTORY Past Medical History Cardiovascular: CAD (s/p PCI/BMS to OM1), HTN, ID, Hyperlipidemia Pulmonary: COPD (O2 dependent ), Other (PE/DVT, JESUS) GI: GERD Heme/Onc: No pertinent hx Hepatobiliary: No pertinent hx Psych: Anxiety, Depression Musculoskeletal: Osteoarthritis, Other (thoracic compression fracture ) Rheumatologic: No pertinent hx Infectious disease: No pertinent hx ENT: No pertinent hx Renal/: No pertinent hx Endocrine: Diabetes, Hypothyroidism PAST SURGICAL HISTORY Past Surgical History knee replacement, spinal fusion, tubal ligation, see PMH above for further FAMILY HISTORY Family History: Other (noncontributory ) SOCIAL HISTORY Social History Smoke: Quit ALCOHOL: none Drugs: None Lives: Alone CURRENT MEDICATIONS CURRENT MEDICATIONS Current Medications Medications (Trade) Dose Ordered Sig/Juan Route PRN Reason Start Time Stop Time Status Last Admin Dose Admin Albuterol/ Ipratropium (Duoneb) 3 ml 1X ONCE NEB 06/27/17 20:00 06/27/17 20:01 DC 06/27/17 20:08 Albuterol Sulfate (Ventolin Neb Soln) 5 mg 1X ONCE NEB 06/27/17 20:00 06/27/17 20:01 DC 06/27/17 20:08 Aspirin (Ecotrin) 325 mg 1X ONCE PO 06/27/17 20:00 06/27/17 20:01 DC 06/27/17 20:17 Nitroglycerin (Nitrostat) 0.4 mg PRN Q5MIN PRN SL CHEST PAIN 06/27/17 20:00 06/27/17 20:54 Nitroglycerin (Nitro-Bid Oint) 1 inch 1X ONCE TP 06/27/17 20:00 06/27/17 20:01 DC 06/27/17 20:17 Methylprednisolone Sodium Succinate (SOLU-Medrol 125MG VIAL) 125 mg 1X ONCE IV 06/27/17 21:00 06/27/17 21:01 DC 06/27/17 20:53 Fentanyl Citrate (Fentanyl 2ml Vial) 50 mcg PRN Q2HR PRN IV PAIN 06/27/17 21:00 06/28/17 20:59 06/27/17 22:39 Furosemide (Lasix) 40 mg 1X ONCE IVP 06/27/17 21:30 06/27/17 21:31 DC 06/27/17 21:07 Labetalol HCl (Normodyne) 15 mg PRN Q10MIN PRN IVP SBP>180 OR DBP>90 06/27/17 21:00 06/27/17 21:44 ALLERGIES ALLERGIES: Coded Allergies: levofloxacin (Verified Allergy, Intermediate, Hives, 03/05/17) ROS Review of System 14 point ROS conducted with pertinent positives noted above in HPI. PHYSICAL EXAM PHYSICAL EXAM General: Alert, Oriented X3, Cooperative HEENT: Atraumatic Lungs: Clear to auscultation Heart: Regular rate, Normal S1, Normal S2, left chest tenderness upon palpation Abdomen: Soft, No tenderness Extremities: trace pedal edema, Normal pulses Skin: No significant lesion Neuro: Normal speech, Sensation intact Psych/Mental Status: Mental status NL, Mood NL MUSCULOSKELETAL: Osteoarthritic changes both hands VITALS VITALS Vital Signs Date Time Temp Pulse Resp B/P (MAP) Pulse Ox O2 Delivery O2 Flow Rate FiO2 06/28/17 08:00 Nasal Cannula 3.0 06/28/17 07:00 97.6 86 22 124/79 (94) 97 97.6 LABS Lab: Laboratory Tests Test 06/27/17 19:40 06/27/17 21:32 06/28/17 03:00 06/28/17 07:27 White Blood Count 8.7 x10^3/uL (4.0-11.0) 7.1 x10^3/uL (4.0-11.0) Red Blood Count 3.95 x10^6/uL (3.50-5.40) 3.83 x10^6/uL (3.50-5.40) Hemoglobin 11.6 g/dL (12.0-15.5) 11.0 g/dL (12.0-15.5) Hematocrit 35.1 % (36.0-47.0) 34.0 % (36.0-47.0) Mean Corpuscular Volume 89 fL (79-100) 89 fL (79-100) Mean Corpuscular Hemoglobin 29 pg (25-35) 29 pg (25-35) Mean Corpuscular Hemoglobin Concent 33 g/dL (31-37) 32 g/dL (31-37) Red Cell Distribution Width 12.3 % (11.5-14.5) 12.0 % (11.5-14.5) Platelet Count 233 x10^3/uL (140-400) 240 x10^3/uL (140-400) Neutrophils (%) (Auto) 73 % (31-73) 88 % (31-73) Lymphocytes (%) (Auto) 18 % (24-48) 11 % (24-48) Monocytes (%) (Auto) 7 % (0-9) 1 % (0-9) Eosinophils (%) (Auto) 2 % (0-3) 0 % (0-3) Basophils (%) (Auto) 0 % (0-3) 0 % (0-3) Neutrophils # (Auto) 6.4 x10^3uL (1.8-7.7) 6.2 x10^3uL (1.8-7.7) Lymphocytes # (Auto) 1.6 x10^3/uL (1.0-4.8) 0.7 x10^3/uL (1.0-4.8) Monocytes # (Auto) 0.6 x10^3/uL (0.0-1.1) 0.1 x10^3/uL (0.0-1.1) Eosinophils # (Auto) 0.1 x10^3/uL (0.0-0.7) 0.0 x10^3/uL (0.0-0.7) Basophils # (Auto) 0.0 x10^3/uL (0.0-0.2) 0.0 x10^3/uL (0.0-0.2) Prothrombin Time 13.5 SEC (11.7-14.0) Prothromb Time International Ratio 1.1 (0.8-1.1) Activated Partial Thromboplast Time 32 SEC (24-38) Sodium Level 139 mmol/L (136-145) 137 mmol/L (136-145) Potassium Level 3.8 mmol/L (3.5-5.1) 4.2 mmol/L (3.5-5.1) Chloride Level 99 mmol/L (98-107) 98 mmol/L (98-107) Carbon Dioxide Level 31 mmol/L (21-32) 31 mmol/L (21-32) Anion Gap 9 (6-14) 8 (6-14) Blood Urea Nitrogen 9 mg/dL (7-20) 12 mg/dL (7-20) Creatinine 1.1 mg/dL (0.6-1.0) 1.1 mg/dL (0.6-1.0) Estimated GFR (Cockcroft-Gault) 50.2 50.2 BUN/Creatinine Ratio 8 (6-20) Glucose Level 182 mg/dL (70-99) 312 mg/dL (70-99) Calcium Level 9.3 mg/dL (8.5-10.1) 8.7 mg/dL (8.5-10.1) Magnesium Level 1.3 mg/dL (1.8-2.4) Total Bilirubin 0.4 mg/dL (0.2-1.0) Aspartate Amino Transf (AST/SGOT) 24 U/L (15-37) Alanine Aminotransferase (ALT/SGPT) 24 U/L (14-59) Alkaline Phosphatase 76 U/L (46-116) Troponin I Quantitative < 0.017 ng/mL (0.000-0.055) < 0.017 ng/mL (0.000-0.055) WX-Ufq-Q-Type Natriuretic Peptide 2684 pg/mL (0-124) Total Protein 8.0 g/dL (6.4-8.2) Albumin 3.7 g/dL (3.4-5.0) Albumin/Globulin Ratio 0.9 (1.0-1.7) Lipase 99 U/L (73-393) Urine Collection Type Unknown Urine Color Yellow Urine Clarity Clear Urine pH 8.0 Urine Specific [place] 1.010 Urine Protein 30 mg/dL (NEG-TRACE) Urine Glucose (UA) 100 mg/dL (NEG) Urine Ketones (Stick) Negative mg/dL (NEG) Urine Blood Negative (NEG) Urine Nitrite Negative (NEG) Urine Bilirubin Negative (NEG) Urine Urobilinogen Dipstick 0.2 mg/dL (0.2 mg/dL) Urine Leukocyte Esterase Negative (NEG) Urine RBC Occ /HPF (0-2) Urine WBC Occ /HPF (0-4) Urine Squamous Epithelial Cells Few /LPF Urine Bacteria 0 /HPF (0-FEW) Urine Mucus Slight /LPF Glucose (Fingerstick) 276 mg/dL (70-99) Test 06/28/17 08:45 06/28/17 09:59 Troponin I Quantitative < 0.017 ng/mL (0.000-0.055) Glucose (Fingerstick) 327 mg/dL (70-99) ECHOCARDIOGRAM ECHOCARDIOGRAM <Conclusion> The left ventricular systolic function is normal. The Ejection Fraction is 55-60%. There is normal LV segmental wall motion. Transmitral Doppler flow pattern is Grade I-abnormal relaxation pattern. Trace aortic regurgitation. Mild tricuspid regurgitation. The pulmonary artery systolic pressure is estimated at 59 mmHg. There is moderate pulmonary hypertension. There is no evidence of significant pericardial effusion. DATE: 03/03/17 1739 STRESS TEST STRESS TEST Conclusion 1. No EKG evidence of stress-induced ischemia. 2. Nuclear imaging shows no reversible ischemia or infarct. 3. Normal left ventricular systolic function with an ejection fraction of greater than 70%. 4. Low risk Lexiscan nuclear stress test. DATE: 03/13/17 1404 HEART CATH HEART CATH CORONARY ANGIOGRAPHY: LM is a large caliber vessel with normal angiographic appearance LAD is a large caliber vessel with mild luminal irregularities of up to 30% D1 is a moderate caliber vessel with normal angiographic appearance LCx is a dominant vessel with mild luminal irregularities. OM1 is a large caliber vessel with an ostial 80% stenosis suggestive of acute plaque rupture with DELTA 3 flow. LPDA is a small caliber vessel with mild diffuse irregularities. Conclusion 1. Mildly elevated left ventricular filling pressure. 2. Low normal LV function. EF 50% 3. Mild MR 4. One vessel CAD s/p PCI to the OM1 with implantation of a Integrity BMS (3.0/ 18, dilated up to a 3.25mm stent). DATE: 11/21/15 1435 ASSESSMENT/PLAN ASSESSMENT/PLAN 1. Chest pain, atypical 2. Malignant hypertension 3. CAD; s/p PCI/BMS OM1 11/08 4. Dyspnea/ COPD, O2 dependent 5. Hyperlipidemia 6. Diabetes 7. CKD 8. Anxiety Recommendations Resume home antiHTN therapy. Monitor to assess need for titration. IV Hydralazine PRN Will given extra dose of Lasix today. Continue secondary prevention measures. Suspect pain is due to combination of malignant hypertension and anxiety. If patient continues to have significant pain despite adequate BP control, could consider for further ischemic workup. Supportive care Problems: DARLYN RUELAS APRN Jun 28, 2017 10:33
[2017-06-28 10:37] VITALS: BP 151/83
[2017-06-28] MEDS: METOPROLOL SUCC 24HR ER 25 MG TAB.ER.24H. PO SCH (11:40)
[2017-06-28] MEDS: FENOFIBRATE,MICRONIZED 134 MG CAPSULE PO SCH (11:40)
[2017-06-28] MEDS: CITALOPRAM 20 MG TABLET. PO SCH (11:40)
[2017-06-28] MEDS: PANTOPRAZOLE 40 MG TABLET.DR. PO SCH (11:40)
[2017-06-28] MEDS: SUCRALFATE 1 GM TABLET. PO SCH ×3 (11:40→20:38)
[2017-06-28] MEDS: valACYclovir 500 MG TABLET. PO SCH ×2 (11:41→20:38)
[2017-06-28] MEDS: LEVOTHYROXINE 88 MCG TABLET PO SCH (11:41)
[2017-06-28] MEDS: methylPREDNISolone SOD SUCC PF 40 MG/ML VIAL. IV SCH ×3 (11:41→21:53)
[2017-06-28] MEDS: LOSARTAN POTASSIUM 50 MG TABLET. PO SCH (11:41)
[2017-06-28] MEDS: FUROSEMIDE 20 MG TABLET PO SCH (11:41)
[2017-06-28] MEDS: POTASSIUM CHLORIDE 10 MEQ TABLET.ER. PO SCH (11:42)
[2017-06-28] MEDS: ASPIRIN ENTERIC COATED 81 MG TABLET.DR. PO SCH (11:42)
[2017-06-28] MEDS: ISOSORBIDE MONONITRATE ER 30 MG TAB.ER.24H PO SCH (11:42)
[2017-06-28] MEDS: PRASUGREL 10 MG TABLET. PO SCH (11:42)
[2017-06-28] MEDS ORDERED: hydrALAZINE 20 MG/ML VIAL. IVP PRN (11:45)
[2017-06-28] MEDS: INSULIN ASPART 300 UNITS/3 ML INSULN.PEN SQ SCH ×2 (11:55→17:14)
[2017-06-28] MEDS ORDERED: FUROSEMIDE 40 MG TABLET. PO ONE (14:30)
[2017-06-28] MEDS ORDERED: ALBUTEROL SULFATE 2.5 MG/3 ML NEBU. NEB PRN (14:45)
[2017-06-28 14:57] VITALS: BP 159/81
[2017-06-28] MEDS: IPRATRPIUM/ALBUTEROL 0.5/2.5MG 3 ML NEBU. NEB SCH ×2 (15:17→20:17)
[2017-06-28 19:00] VITALS: BP 140/81
[2017-06-28] MEDS: ATORVASTATIN CALCIUM 20 MG TABLET PO SCH (20:38)
[2017-06-28 23:00] VITALS: BP 113/80
[2017-06-29 03:00] VITALS: BP 147/83
[2017-06-29 05:16] LABS: HEMATOCRIT 31.8 % (36.0-47.0); HEMOGLOBIN 10.6 g/dL (12.0-15.5); RED BLOOD COUNT 3.64 x10^6/uL (3.50-5.40); RED CELL DISTRIBUTION WIDTH 12.6 % (11.5-14.5); WHITE BLOOD COUNT 10.9 x10^3/uL (4.0-11.0)
[2017-06-29 05:57] LABS: CALCIUM 8.8 mg/dL (8.5-10.1); CREATININE 1.2 mg/dL (0.6-1.0); GFR 45.4; POTASSIUM 4.1 mmol/L (3.5-5.1)
[2017-06-29] MEDS: LEVOTHYROXINE 88 MCG TABLET PO SCH (06:04)
[2017-06-29] MEDS: methylPREDNISolone SOD SUCC PF 40 MG/ML VIAL. IV SCH ×3 (06:04→21:08)
[2017-06-29 07:00] VITALS: BP 150/78
[2017-06-29] MEDS: SUCRALFATE 1 GM TABLET. PO SCH ×4 (07:30→21:08)
[2017-06-29] MEDS: PANTOPRAZOLE 40 MG TABLET.DR. PO SCH (07:30)
[2017-06-29] MEDS: IPRATRPIUM/ALBUTEROL 0.5/2.5MG 3 ML NEBU. NEB SCH ×4 (08:16→20:00)
[2017-06-29] MEDS: amLODIPine BESYLATE 5 MG TABLET PO SCH (08:46)
[2017-06-29] MEDS: ISOSORBIDE MONONITRATE ER 30 MG TAB.ER.24H PO SCH (08:47)
[2017-06-29] MEDS: valACYclovir 500 MG TABLET. PO SCH ×2 (08:47→21:08)
[2017-06-29] MEDS: POTASSIUM CHLORIDE 10 MEQ TABLET.ER. PO SCH (08:47)
[2017-06-29] MEDS: ASPIRIN ENTERIC COATED 81 MG TABLET.DR. PO SCH (08:48)
[2017-06-29] MEDS: CITALOPRAM 20 MG TABLET. PO SCH (08:49)
[2017-06-29] MEDS: LOSARTAN POTASSIUM 50 MG TABLET. PO SCH (08:49)
[2017-06-29] MEDS: PRASUGREL 10 MG TABLET. PO SCH (08:49)
[2017-06-29] MEDS: FUROSEMIDE 20 MG TABLET PO SCH (08:50)
[2017-06-29] MEDS: FENOFIBRATE,MICRONIZED 134 MG CAPSULE PO SCH (08:50)
[2017-06-29] MEDS: METOPROLOL SUCC 24HR ER 25 MG TAB.ER.24H. PO SCH (08:50)
[2017-06-29] MEDS: INSULIN ASPART 300 UNITS/3 ML INSULN.PEN SQ SCH ×3 (08:58→17:06)
--- NOTE | 2017-06-29 10:43 | PDOC ---
GENERAL General: vss and afebrile. awake and alert and feels much better which she relates to breathing treatment. sugars increased but on steroids and ss insulin ordered. troponin X 3 are negative. blood pressures are much better currently. help cardiology appreciated. seems pretty anxious. Problems: VITAL SIGNS Vital Signs: Vital Signs Date Time Temp Pulse Resp B/P (MAP) Pulse Ox O2 Delivery O2 Flow Rate FiO2 06/29/17 08:50 76 150/78 06/29/17 08:17 97 Nasal Cannula 3.0 06/29/17 07:00 97.7 20 97.7 I & O I & O Intake and Output 06/29/17 07:00 Intake Total 730 ml Balance 730 ml Intake Oral 730 ml # Voids 4 # Bowel Movements 1 ALLERGIES Allergies: Allergies Coded Allergies Type Severity Reaction Last Updated Verified levofloxacin Allergy Intermediate Hives 03/05/17 Yes MEDS Medications: Current Medications Medications (Trade) Dose Ordered Sig/Juan Start Time Stop Time Status Last Admin Dose Admin Albuterol Sulfate (Ventolin Neb Soln) 2.5 mg PRN Q4HRS PRN 06/28/17 14:45 Albuterol/ Ipratropium (Duoneb) 3 ml RTQID 06/28/17 16:00 06/29/17 08:16 3 ML Amlodipine Besylate (Norvasc) 5 mg DAILY 06/28/17 10:00 06/29/17 08:46 5 MG Aspirin (Ecotrin) 81 mg DAILY 06/28/17 10:00 06/29/17 08:48 81 MG Atorvastatin Calcium (Lipitor) 20 mg QHS 06/28/17 21:00 06/28/17 20:38 20 MG Citalopram Hydrobromide (CeleXA) 40 mg DAILY 06/28/17 10:00 06/29/17 08:49 40 MG Dextrose (Dextrose 50%-Water Syringe) 12.5 gm PRN Q15MIN PRN 06/28/17 09:00 Fenofibrate (Lofibra) 134 mg DAILY 06/28/17 11:00 06/29/17 08:50 134 MG Fentanyl Citrate (Fentanyl 2ml Vial) 50 mcg PRN Q2HR PRN 06/27/17 21:00 06/28/17 20:59 DC 06/27/17 22:39 50 MCG Furosemide (Lasix) 40 mg 1X ONCE 06/28/17 14:30 06/28/17 14:32 DC 06/28/17 11:52 40 MG Hydralazine HCl (Apresoline) 10 mg PRN Q4HRS PRN 06/28/17 11:45 Insulin Aspart (NovoLOG) 0-7 UNITS TIDWMEALS 06/28/17 12:00 06/29/17 08:58 4 UNITS Isosorbide Mononitrate (Imdur) 30 mg DAILY 06/28/17 10:00 06/29/17 08:47 30 MG Labetalol HCl (Normodyne) 15 mg PRN Q10MIN PRN 06/27/17 21:00 06/27/17 21:44 15 MG Levothyroxine Sodium (Synthroid) 88 mcg DAILY06 06/28/17 10:30 06/29/17 06:04 88 MCG Losartan Potassium (Cozaar) 100 mg DAILY 06/28/17 11:00 06/29/17 08:49 100 MG Metformin HCl (Glucophage) 1,000 mg BIDWMEALS 06/28/17 10:00 06/29/17 08:47 1,000 MG Methylprednisolone Sodium Succinate (SOLU-Medrol 40MG VIAL) 40 mg Q8HRS 06/28/17 10:00 06/29/17 06:04 40 MG Methylprednisolone Sodium Succinate (SOLU-Medrol 125MG VIAL) 125 mg 1X ONCE 06/27/17 21:00 06/27/17 21:01 DC 06/27/17 20:53 125 MG Metoprolol Succinate (Toprol Xl) 50 mg DAILY 06/28/17 10:00 06/29/17 08:50 50 MG Nitroglycerin (Nitro-Bid Oint) 1 inch 1X ONCE 06/27/17 20:00 06/27/17 20:01 DC 06/27/17 20:17 1 INCH Nitroglycerin (Nitrostat) 0.4 mg PRN Q5MIN PRN 06/27/17 20:00 06/27/17 20:54 0.4 MG Ondansetron HCl (Zofran) 4 mg PRN Q8HRS PRN 06/27/17 21:00 06/28/17 20:59 DC Pantoprazole Sodium (Protonix) 40 mg DAILYAC 06/28/17 11:30 06/28/17 11:40 40 MG Potassium Chloride (Klor-Con) 10 meq DAILYWBKFT 06/28/17 10:00 06/29/17 08:47 10 MEQ Prasugrel (Effient) 10 mg DAILYWBKFT 06/28/17 10:00 06/29/17 08:49 10 MG Sucralfate (Carafate) 1 gm QIDACHS 06/28/17 11:30 06/28/17 20:38 1 GM Valacyclovir HCl (Valtrex) 500 mg BID 06/28/17 10:00 06/29/17 08:47 500 MG LAB Lab: Laboratory Tests Test 06/28/17 17:04 06/28/17 20:57 06/29/17 04:45 06/29/17 07:06 Glucose (Fingerstick) 195 mg/dL (70-99) 224 mg/dL (70-99) 244 mg/dL (70-99) White Blood Count 10.9 x10^3/uL (4.0-11.0) Red Blood Count 3.64 x10^6/uL (3.50-5.40) Hemoglobin 10.6 g/dL (12.0-15.5) Hematocrit 31.8 % (36.0-47.0) Mean Corpuscular Volume 87 fL (79-100) Mean Corpuscular Hemoglobin 29 pg (25-35) Mean Corpuscular Hemoglobin Concent 33 g/dL (31-37) Red Cell Distribution Width 12.6 % (11.5-14.5) Platelet Count 276 x10^3/uL (140-400) Sodium Level 138 mmol/L (136-145) Potassium Level 4.1 mmol/L (3.5-5.1) Chloride Level 101 mmol/L (98-107) Carbon Dioxide Level 31 mmol/L (21-32) Anion Gap 6 (6-14) Blood Urea Nitrogen 24 mg/dL (7-20) Creatinine 1.2 mg/dL (0.6-1.0) Estimated GFR (Cockcroft-Gault) 45.4 Glucose Level 282 mg/dL (70-99) Calcium Level 8.8 mg/dL (8.5-10.1) ANASTASIIA VU MD Jun 29, 2017 10:43
[2017-06-29 11:05] VITALS: BP 160/78
--- NOTE | 2017-06-29 11:26 | RAD ---
Indication hypertension. Grayscale color Doppler and spectral analysis was performed. Examination was targeted to the kidneys and the renal vasculature. Only the proximal abdominal aorta was seen which appeared unremarkable. The mid and distal abdominal aorta were obscured by gas. In that portion of the aorta which was seen the velocity was 120 cm/s. The right kidney measures approximately 11.4 cm in length. No hydronephrosis or solid mass is seen. Those portions of the main right renal artery which were visualized demonstrate normal velocities. There are normal ratios relative to the aorta. Resistive indices are also normal. Right renal vein was patent. The left kidney measures approximately 8.9 cm in greatest dimension. No hydronephrosis or mass is seen. The vasculature to the left kidney was obscured by gas. The urinary bladder was not distended and poorly visualized on this exam. IMPRESSION: Slightly small left kidney. No evidence of high-grade renal artery stenosis on the right. Renal vasculature associated with the left kidney obscured by gas
[2017-06-29 15:04] VITALS: BP 134/67
[2017-06-29 19:00] VITALS: BP 123/74
[2017-06-29] MEDS: ATORVASTATIN CALCIUM 20 MG TABLET PO SCH (21:08)
[2017-06-29 23:00] VITALS: BP_SYST 114; BP_SYST 142; BP_DIAS 68; BP_DIAS 84
[2017-06-30 03:00] VITALS: BP 139/85
[2017-06-30] MEDS: methylPREDNISolone SOD SUCC PF 40 MG/ML VIAL. IV SCH ×3 (05:29→21:29)
[2017-06-30] MEDS: LEVOTHYROXINE 88 MCG TABLET PO SCH (05:29)
[2017-06-30 07:00] VITALS: BP 156/74
[2017-06-30] MEDS: PANTOPRAZOLE 40 MG TABLET.DR. PO SCH (07:46)
[2017-06-30] MEDS: SUCRALFATE 1 GM TABLET. PO SCH ×4 (07:46→21:28)
[2017-06-30] MEDS: INSULIN ASPART 300 UNITS/3 ML INSULN.PEN SQ SCH ×3 (07:52→17:00)
[2017-06-30] MEDS: IPRATRPIUM/ALBUTEROL 0.5/2.5MG 3 ML NEBU. NEB SCH ×4 (07:59→19:33)
[2017-06-30] MEDS: ISOSORBIDE MONONITRATE ER 30 MG TAB.ER.24H PO SCH (09:49)
[2017-06-30] MEDS: valACYclovir 500 MG TABLET. PO SCH ×2 (09:49→21:29)
[2017-06-30] MEDS: METOPROLOL SUCC 24HR ER 25 MG TAB.ER.24H. PO SCH (09:50)
[2017-06-30] MEDS: FENOFIBRATE,MICRONIZED 134 MG CAPSULE PO SCH (09:50)
[2017-06-30] MEDS: POTASSIUM CHLORIDE 10 MEQ TABLET.ER. PO SCH (09:50)
[2017-06-30] MEDS: PRASUGREL 10 MG TABLET. PO SCH (09:50)
[2017-06-30] MEDS: FUROSEMIDE 20 MG TABLET PO SCH (09:50)
[2017-06-30] MEDS: amLODIPine BESYLATE 5 MG TABLET PO SCH (09:50)
[2017-06-30] MEDS: ASPIRIN ENTERIC COATED 81 MG TABLET.DR. PO SCH (09:51)
[2017-06-30] MEDS: CITALOPRAM 20 MG TABLET. PO SCH (09:51)
[2017-06-30] MEDS: LOSARTAN POTASSIUM 50 MG TABLET. PO SCH (09:51)
--- NOTE | 2017-06-30 10:46 | PDOC ---
GENERAL General: vss and afebrile. awake and alert and feels much better. renal artery doppler looks ok on right and left not well seen due to overlying gas. blood pressures good enough, I think, to assume no significant renal artery stenosis. sugars remain some increased with steroids. continue same. Problems: VITAL SIGNS Vital Signs: Vital Signs Date Time Temp Pulse Resp B/P (MAP) Pulse Ox O2 Delivery O2 Flow Rate FiO2 06/30/17 09:51 77 156/74 06/30/17 08:01 97 Nasal Cannula 3.0 06/30/17 07:00 97.8 20 97.8 I & O I & O Intake and Output 06/30/17 07:00 Intake Total 2040 ml Balance 2040 ml Intake Oral 2040 ml # Voids 6 ALLERGIES Allergies: Allergies Coded Allergies Type Severity Reaction Last Updated Verified levofloxacin Allergy Intermediate Hives 03/05/17 Yes MEDS Medications: Current Medications Medications (Trade) Dose Ordered Sig/Juan Start Time Stop Time Status Last Admin Dose Admin Albuterol Sulfate (Ventolin Neb Soln) 2.5 mg PRN Q4HRS PRN 06/28/17 14:45 Albuterol/ Ipratropium (Duoneb) 3 ml RTQID 06/28/17 16:00 06/30/17 07:59 3 ML Amlodipine Besylate (Norvasc) 5 mg DAILY 06/28/17 10:00 06/30/17 09:50 5 MG Aspirin (Ecotrin) 81 mg DAILY 06/28/17 10:00 06/30/17 09:51 81 MG Atorvastatin Calcium (Lipitor) 20 mg QHS 06/28/17 21:00 06/29/17 21:08 20 MG Citalopram Hydrobromide (CeleXA) 40 mg DAILY 06/28/17 10:00 06/30/17 09:51 40 MG Dextrose (Dextrose 50%-Water Syringe) 12.5 gm PRN Q15MIN PRN 06/28/17 09:00 Fenofibrate (Lofibra) 134 mg DAILY 06/28/17 11:00 06/30/17 09:50 134 MG Fentanyl Citrate (Fentanyl 2ml Vial) 50 mcg PRN Q2HR PRN 06/27/17 21:00 06/28/17 20:59 DC 06/27/17 22:39 50 MCG Furosemide (Lasix) 40 mg 1X ONCE 06/28/17 14:30 06/28/17 14:32 DC 06/28/17 11:52 40 MG Hydralazine HCl (Apresoline) 10 mg PRN Q4HRS PRN 06/28/17 11:45 Insulin Aspart (NovoLOG) 0-7 UNITS TIDWMEALS 06/28/17 12:00 06/30/17 07:52 4 UNITS Isosorbide Mononitrate (Imdur) 30 mg DAILY 06/28/17 10:00 06/30/17 09:49 30 MG Labetalol HCl (Normodyne) 15 mg PRN Q10MIN PRN 06/27/17 21:00 06/27/17 21:44 15 MG Levothyroxine Sodium (Synthroid) 88 mcg DAILY06 06/28/17 10:30 06/30/17 05:29 88 MCG Losartan Potassium (Cozaar) 100 mg DAILY 06/28/17 11:00 06/30/17 09:51 100 MG Metformin HCl (Glucophage) 1,000 mg BIDWMEALS 06/28/17 10:00 06/30/17 09:49 1,000 MG Methylprednisolone Sodium Succinate (SOLU-Medrol 40MG VIAL) 40 mg Q8HRS 06/28/17 10:00 06/30/17 05:29 40 MG Methylprednisolone Sodium Succinate (SOLU-Medrol 125MG VIAL) 125 mg 1X ONCE 06/27/17 21:00 06/27/17 21:01 DC 06/27/17 20:53 125 MG Metoprolol Succinate (Toprol Xl) 50 mg DAILY 06/28/17 10:00 06/30/17 09:50 50 MG Nitroglycerin (Nitro-Bid Oint) 1 inch 1X ONCE 06/27/17 20:00 06/27/17 20:01 DC 06/27/17 20:17 1 INCH Nitroglycerin (Nitrostat) 0.4 mg PRN Q5MIN PRN 06/27/17 20:00 06/27/17 20:54 0.4 MG Ondansetron HCl (Zofran) 4 mg PRN Q8HRS PRN 06/27/17 21:00 06/28/17 20:59 DC Pantoprazole Sodium (Protonix) 40 mg DAILYAC 06/28/17 11:30 06/30/17 07:46 40 MG Potassium Chloride (Klor-Con) 10 meq DAILYWBKFT 06/28/17 10:00 06/30/17 09:50 10 MEQ Prasugrel (Effient) 10 mg DAILYWBKFT 06/28/17 10:00 06/30/17 09:50 10 MG Sucralfate (Carafate) 1 gm QIDACHS 06/28/17 11:30 06/30/17 07:46 1 GM Valacyclovir HCl (Valtrex) 500 mg BID 06/28/17 10:00 06/30/17 09:49 500 MG LAB Lab: Laboratory Tests Test 06/29/17 16:27 06/30/17 07:43 Glucose (Fingerstick) 259 mg/dL (70-99) 237 mg/dL (70-99) ANASTASIIA VU MD Jun 30, 2017 10:46
[2017-06-30 11:00] VITALS: BP 190/93
[2017-06-30] MEDS ORDERED: diphenhydrAMINE HCL 25 MG CAPSULE PO PRN (14:15)
[2017-06-30] MEDS ORDERED: diphenhydrAMINE 50 MG/ML VIAL IVP PRN (14:15)
[2017-06-30 14:44] VITALS: BP 154/70
[2017-06-30 19:00] VITALS: BP 152/78
[2017-06-30] MEDS: ATORVASTATIN CALCIUM 20 MG TABLET PO SCH (21:29)
[2017-06-30 23:00] VITALS: BP 150/79
[2017-07-01] MEDS: PANTOPRAZOLE 40 MG TABLET.DR. PO SCH ×2 (06:11→08:20)
[2017-07-01] MEDS: SUCRALFATE 1 GM TABLET. PO SCH ×3 (06:11→17:27)
[2017-07-01] MEDS: LEVOTHYROXINE 88 MCG TABLET PO SCH (06:11)
[2017-07-01] MEDS: methylPREDNISolone SOD SUCC PF 40 MG/ML VIAL. IV SCH ×2 (06:12→13:42)
[2017-07-01 07:00] VITALS: BP 163/87
[2017-07-01] MEDS: IPRATRPIUM/ALBUTEROL 0.5/2.5MG 3 ML NEBU. NEB SCH ×3 (07:27→16:26)
[2017-07-01] MEDS: ISOSORBIDE MONONITRATE ER 30 MG TAB.ER.24H PO SCH (08:20)
[2017-07-01] MEDS: valACYclovir 500 MG TABLET. PO SCH (08:20)
[2017-07-01] MEDS: FENOFIBRATE,MICRONIZED 134 MG CAPSULE PO SCH (08:21)
[2017-07-01] MEDS: METOPROLOL SUCC 24HR ER 25 MG TAB.ER.24H. PO SCH (08:21)
[2017-07-01] MEDS: FUROSEMIDE 20 MG TABLET PO SCH (08:21)
[2017-07-01] MEDS: ASPIRIN ENTERIC COATED 81 MG TABLET.DR. PO SCH (08:22)
[2017-07-01] MEDS: amLODIPine BESYLATE 5 MG TABLET PO SCH (08:22)
[2017-07-01] MEDS: CITALOPRAM 20 MG TABLET. PO SCH (08:22)
[2017-07-01] MEDS: PRASUGREL 10 MG TABLET. PO SCH (08:23)
[2017-07-01] MEDS: POTASSIUM CHLORIDE 10 MEQ TABLET.ER. PO SCH (08:23)
[2017-07-01] MEDS: LOSARTAN POTASSIUM 50 MG TABLET. PO SCH (08:23)
[2017-07-01] MEDS: INSULIN ASPART 300 UNITS/3 ML INSULN.PEN SQ SCH ×3 (08:27→17:31)
[2017-07-01 11:00] VITALS: BP 158/86
[2017-07-01 15:00] VITALS: BP 146/72
[2017-07-01] MEDS ORDERED: IPRA3AMP NEB (17:52)
[2017-07-01] MEDS ORDERED: SPIR50TA2 PO (17:52)
--- NOTE | 2017-07-01 17:53 | PDOC ---
SUBJECTIVE Subjective feels better, breathing better , no further chest pain OBJECTIVE Vital Signs Vital Signs Date Time Temp Pulse Resp B/P (MAP) Pulse Ox O2 Delivery O2 Flow Rate FiO2 07/01/17 16:27 Nasal Cannula 3.0 07/01/17 11:40 Nasal Cannula 3.0 07/01/17 11:00 98.2 73 18 158/86 (110) 96 Nasal Cannula 3.0 98.2 07/01/17 08:23 73 163/87 07/01/17 08:22 73 163/87 07/01/17 08:21 73 163/73 07/01/17 08:20 73 163/87 07/01/17 08:00 Nasal Cannula 3.0 07/01/17 07:29 96 Nasal Cannula 3.0 07/01/17 07:00 98.3 73 18 163/87 (112) 97 Nasal Cannula 3.0 98.3 06/30/17 23:00 98.3 84 20 150/79 (102) 95 Nasal Cannula 3.0 98.3 06/30/17 20:00 Nasal Cannula 3.0 06/30/17 19:35 95 Nasal Cannula 3.0 06/30/17 19:00 98.3 83 20 152/78 (102) 96 Nasal Cannula 3.0 98.3 I & O Intake and Output 07/01/17 07:00 Intake Total 2390 ml Balance 2390 ml Intake Oral 2390 ml # Voids 9 PHYSICAL EXAM Physical Exam good air movement , decrease wheezing abd soft ext no edema ASSESSMENT/PLAN Assessment/Plan 1- Chest pain 2-Hx CAD 3.acute respiratory failure on chronic due to COPD with exacerbation 4. pulmonary HTN last echo 03/11 5-Diastolic CHF 6.DM II 7. HTN with exacerbation , renal doppler noted will add spironolactone and monitor electrolytes out pt 8.HLD 9. Hypothyroidism home today , add spironolactone Problems: COMMENT Lab Laboratory Tests Test 06/30/17 21:04 07/01/17 07:50 07/01/17 11:54 07/01/17 16:52 Glucose (Fingerstick) 246 mg/dL (70-99) 233 mg/dL (70-99) 232 mg/dL (70-99) 327 mg/dL (70-99) AURA TEJEDA MD Jul 01, 2017 17:53
--- NOTE | 2017-07-01 17:54 | PDOC3 ---
Discharge Summary* Date of Admission: Jun 27, 2017 Date of Discharge: Jul 01, 2017 Admitting Diagnosis Problems Medical Problems: (1) Chest pain Status: Acute (2) CHF (congestive heart failure) Status: Acute (3) COPD exacerbation Status: Acute (4) Hypertensive emergency Status: Acute Problems: Final Diagnosis 1- Chest pain 2-Hx CAD 3.acute respiratory failure on chronic due to COPD with exacerbation 4. pulmonary HTN last echo 03/11 5-Diastolic CHF 6.DM II 7. HTN with exacerbation , renal doppler noted will add spironolactone and monitor electrolytes out pt 8.HLD 9. Hypothyroidism Problems Medical Problems: (1) Chest pain Status: Acute (2) CHF (congestive heart failure) Status: Acute (3) COPD exacerbation Status: Acute (4) Hypertensive emergency Status: Acute CONSULTS Cardiology Procedures CXR, renal doppler ok on right not well seen on left with small left kidney Brief Hospital Course Ms. Cash is a 62 old [sex] who presented with [ ] Disposition/Orders: D/C to Home CONDITION AT DISCHARGE: Improved Diet: 2 gr sodium, Cardiac, Consistent Carbohydrate Scheduled Amlodipine Besylate (Amlodipine Besylate), 5 MG PO DAILY Aspirin (Aspir 81), 1 TAB PO DAILY, (Reported) Atorvastatin Calcium (Atorvastatin Calcium), 20 MG PO DAILY, (Reported) Citalopram Hydrobromide (Citalopram Hbr), 40 MG PO DAILY, (Reported) Esomeprazole Magnesium (Nexium Capsule), 1 CAP PO DAILY, (Reported) Fenofibrate Nanocrystallized (Fenofibrate), 160 MG PO DAILY, (Reported) Ipratropium/Albuterol Sulfate (Duoneb 0.5-3(2.5) Mg/3 Ml), 3 ML NEB RTQID Isosorbide Mononitrate (Isosorbide Mononitrate Er), 30 MG PO DAILY, (Reported) Levothyroxine Sodium (Levothyroxine Sodium), 88 MCG PO DAILY06, (Reported) Metformin Hcl (Metformin Hcl), 1,000 MG PO BID, (Reported) Metoprolol Succinate (Metoprolol Succinate ( Xl )), 2 TAB PO DAILY, (Reported) Prasugrel Hcl (Effient), 10 MG PO DAILYWBKFT Spironolactone (Spironolactone), 1 TAB PO DAILY Sucralfate (Carafate), 1 GM PO QIDACHS Valacyclovir Hcl (Valacyclovir), 500 MG PO BID, (Reported) Valsartan (Diovan), 160 MG PO DAILY, (Reported) Discontinued Medications Albuterol Sulfate (Ventolin Hfa Inhaler), 2 PUFF INH PRN QID PRN for SHORTNESS OF BREATH, (Reported) Alprazolam (Xanax), 0.25 MG PO PRN TID PRN for ANXIETY / AGITATION, (Reported) Fluticasone/Vilanterol (Breo Ellipta 100-25 Mcg Inh), 1 PUFF IH DAILY, (Reported ) Hydrocodone Bit/Acetaminophen (Hydrocodone-Apap 5-325 ), 1 TAB PO PRN Q8HRS PRN for PAIN, (Reported) Ipratropium/Albuterol Sulfate (Duoneb 0.5 Mg-3 Mg/3 Ml Soln), 3 ML IH QID, ( Reported) FOLLOW UP APPOINTMENT: Dr. Hoang 1 week need BMP to check kidney and electrolytes on spironolactone and recheck Bp cardiology 4 weeks possible nephrology consult Time Spent Total time spent with patient [] minutes for coordination of care, counseling, and education. AURA TEJEDA MD Jul 01, 2017 17:54
== END 2017-07-01 18:30 | disposition home or self-care (01) | DRG 291 ==
LOC: ER 19:24 → 5 SOUTH 20:25
PROVIDERS: ADMIT Internal Medicine; ATTEND Internal Medicine
DX: I13.0 Hypertensive heart and chronic kidney disease with heart failure and stage 1 through stage 4 chronic kidney disease, or unspecified chronic kidney disease (principal); J96.20 Acute and chronic respiratory failure, unspecified whether with hypoxia or hypercapnia; I50.33 Acute on chronic diastolic (congestive) heart failure; I16.1 Hypertensive emergency; J44.1 Chronic obstructive pulmonary disease with (acute) exacerbation; M48.54XA Collapsed vertebra, not elsewhere classified, thoracic region, initial encounter for fracture; I50.32 Chronic diastolic (congestive) heart failure; R07.89 Other chest pain; E03.9 Hypothyroidism, unspecified; E11.22 Type 2 diabetes mellitus with diabetic chronic kidney disease; E78.00 Pure hypercholesterolemia, unspecified; E78.5 Hyperlipidemia, unspecified; G56.03 Carpal tunnel syndrome, bilateral upper limbs; F41.9 Anxiety disorder, unspecified; I25.10 Atherosclerotic heart disease of native coronary artery without angina pectoris; I27.2 Other secondary pulmonary hypertension; K21.9 Gastro-esophageal reflux disease without esophagitis; M81.0 Age-related osteoporosis without current pathological fracture; N18.9 Chronic kidney disease, unspecified; Z96.659 Presence of unspecified artificial knee joint; F32.9 Major depressive disorder, single episode, unspecified; M19.90 Unspecified osteoarthritis, unspecified site; E05.90 Thyrotoxicosis, unspecified without thyrotoxic crisis or storm; E11.40 Type 2 diabetes mellitus with diabetic neuropathy, unspecified; Z79.82 Long term (current) use of aspirin; Z79.899 Other long term (current) drug therapy; Z82.49 Family history of ischemic heart disease and other diseases of the circulatory system; Z83.3 Family history of diabetes mellitus; Z98.1 Arthrodesis status; Z98.61 Coronary angioplasty status; Z99.81 Dependence on supplemental oxygen; I25.2 Old myocardial infarction; Z90.49 Acquired absence of other specified parts of digestive tract; Z98.51 Tubal ligation status; Z90.710 Acquired absence of both cervix and uterus; Z88.1 Allergy status to other antibiotic agents; Z71.89 Other specified counseling; Z86.718 Personal history of other venous thrombosis and embolism; Z87.891 Personal history of nicotine dependence
CPT/HCPCS: 36415; 71010; 76770; 80048; 80053; 81001; 82962; 83690; 83735; 83880; 84484; 85007; 85027; 85610; 85730; 93005; 94250; 94640; 94760; 96374; 96375; C1887; J0360; J1815; J1940; J2920; J2930; J3010; J3490; J7613; J7620; Q0163; 99291-25

== ENCOUNTER 2017-07-10 12:04 | Inpatient (IN) | payer MEDICARE, MEDICAID ==
[~2017-07-10] VITALS: Ht 162.6 cm; Wt 84.6 kg
[~2017-07-10 12:04] MED LIST changes: +IPRA3AMP NEB; +SPIR50TA2 PO; +VALA500T PO
--- NOTE | 2017-07-10 12:45 | RAD ---
Chest radiograph 07/10/2017 at 1237 hours Indication: General weakness Comparison: Chest radiograph 06/27/2017, 05/30/2017 Technique: Single frontal view of the chest is provided. Findings: Cardiomediastinal silhouette is similar in appearance. No pleural effusions, pulmonary vascular congestion or pneumothorax. The lungs are clear. Remote healed right lateral eighth rib fracture. Impression: No acute cardiopulmonary process.
[2017-07-10 13:02] LABS: BASO % 1 % (0-3); EOS % 1 % (0-3); HEMATOCRIT 34.7 % (36.0-47.0); HEMOGLOBIN 11.2 g/dL (12.0-15.5); LYMPH # 1.6 x10^3/uL (1.0-4.8); LYMPH % 19 % (24-48); MEAN CORPUSCULAR HEMOGLOBIN 29 pg (25-35); MEAN CORPUSCULAR HGB CONC 32 g/dL (31-37); MEAN CORPUSCULAR VOLUME 90 fL (79-100); MONO % 8 % (0-9); NEUT % 73 % (31-73); PLATELET COUNT 270 x10^3/uL (140-400); RED BLOOD COUNT 3.87 x10^6/uL (3.50-5.40); RED CELL DISTRIBUTION WIDTH 12.8 % (11.5-14.5); WHITE BLOOD COUNT 8.4 x10^3/uL (4.0-11.0)
[2017-07-10 13:09] LABS: CALCIUM 8.9 mg/dL (8.5-10.1); CREATININE 1.4 mg/dL (0.6-1.0)
[2017-07-10 13:09] LABS: BILIRUBIN,URINE NEGATIVE (NEG); GLUCOSE,URINE NEGATIVE (NEG); NITRITE,URINE NEGATIVE (NEG); PH,URINE 5.5; PROTEIN,URINE NEGATIVE (NEG-TRACE); UROBILINOGEN,URINE 0.2 mg/dL (0.2 mg/dL)
[2017-07-10 13:10] LABS: POTASSIUM 4.3 mmol/L (3.5-5.1)
--- NOTE | 2017-07-10 13:18 | RAD ---
CT head without contrast 07/10/2017 at 1258 hours Indication: Leg weakness, memory loss Comparison: CT head 08/04/2010 Technique: Multiple axial noncontrast CT images of the head were obtained from the skull base through the vertex. Findings: The ventricles, sulci and basal cisterns are within normal limits. Kumar-white matter differentiation is normal. There is no acute intracranial hemorrhage. There is no mass, mass effect or midline shift. Posterior fossa is within normal limits. Sellar and suprasellar cistern appear normal. Orbits are normal in appearance. Paranasal sinuses are well aerated. Mastoid air cells are well aerated. Scalp and calvaria are normal. Impression: There is no acute intracranial hemorrhage. PQRS Compliance Statement: One or more of the following individualized dose reduction techniques were utilized for this examination: 1. Automated exposure control 2. Adjustment of the mA and/or kV according to patient size 3. Use of iterative reconstruction technique
[2017-07-10 13:22] LABS: ALBUMIN 3.5 g/dL (3.4-5.0); ALBUMIN/GLOBULIN RATIO 0.9 (1.0-1.7); TOTAL BILIRUBIN 0.4 mg/dL (0.2-1.0); TOTAL PROTEIN 7.4 g/dL (6.4-8.2)
[2017-07-10 13:27] LABS: BACTERIA,URINE 0 /HPF (0-FEW); SQUAMOUS EPITHELIAL CELL,UR FEW /LPF
--- NOTE | 2017-07-10 13:28 | PHYS DOC ---
Past Medical History Past Medical History: Anxiety, Bronchitis, COPD, Depression, Diabetes-Type II, High Cholesterol, Hypertension, Hyperthyroid, [place] Additional Past Medical Histor: EMPHYSEMA Past Surgical History: Angioplasty, Other Additional Past Surgical Histo: left knee replacementx2, spinal fusion, right knee arthroplasty, CTR, Alcohol Use: Rarely Drug Use: None Adult General Chief Complaint Chief Complaint: DIZZY/LIGHT HEADED HPI HPI Patient is a 62 year old female who presents with altered mental status & leg weakness. The patient is a poor historian & I am not sure if this is acute or chronic. She developed symptoms this morning, not clear whether they were present at the time she awoke or later. She feels weak in her bilateral lower extremities, also has memory loss. She states her speech sounds unusual. She feels lightheaded/dizzy. She denies fevers/chills, headache, vision changes, chest pain, shortness of breath. She has history of DM, HTN, CAD, CHF, COPD. PCP is Dr. Hoang. Review of Systems Review of Systems Constitutional: Denies fever or chills Eyes: Denies change in visual acuity HENT: Denies nasal congestion or sore throat Respiratory: Denies cough or shortness of breath Cardiovascular: Denies chest pain or edema GI: Denies abdominal pain, nausea, vomiting, bloody stools or diarrhea : Denies dysuria or hematuria Musculoskeletal: Reports leg weakness Integument: Denies rash or skin lesions Neurologic: Reports memory loss and leg weakness Denies headache, or sensory changes Allergies Allergies Allergies Coded Allergies Type Severity Reaction Last Updated Verified levofloxacin Allergy Intermediate Hives 03/05/17 Yes Physical Exam Physical Exam Constitutional: Well developed, well nourished, no acute distress, non-toxic appearance. HENT: Normocephalic, atraumatic, bilateral external ears normal, oropharynx moist, nose normal. Eyes: PERRLA, EOMI, conjunctiva normal, no discharge. Neck: supple, no stridor. Cardiovascular: RRR, no murmurs, no edema. Lungs & Thorax: LCTAB, no wheezing, no respiratory distress. Abdomen: soft, nontender, nondistended. Skin: Warm, dry, no erythema, no rash. Back: No tenderness. Extremities: No tenderness, no edema. Neurologic: Alert and oriented X 3, cranial nerves II through XII grossly intact , symmetric strength and sensation upper and lower extremities, intact finger to nose and heel to sotelo, no palmar drift, no focal deficits noted. Patient has difficulty with word finding though speech does not seem slurred to me. Psychologic: Affect normal, judgement normal, mood normal. Current Patient Data Vital Signs Vital Signs Date Time Temp Pulse Resp B/P (MAP) Pulse Ox O2 Delivery O2 Flow Rate FiO2 07/10/17 13:51 60 20 133/70 (91) 99 07/10/17 12:21 Nasal Cannula 3.0 07/10/17 12:08 98.2 98.2 Lab Values Laboratory Tests Test 07/10/17 12:40 07/10/17 12:55 White Blood Count 8.4 x10^3/uL (4.0-11.0) Red Blood Count 3.87 x10^6/uL (3.50-5.40) Hemoglobin 11.2 g/dL (12.0-15.5) L Hematocrit 34.7 % (36.0-47.0) L Mean Corpuscular Volume 90 fL (79-100) Mean Corpuscular Hemoglobin 29 pg (25-35) Mean Corpuscular Hemoglobin Concent 32 g/dL (31-37) Red Cell Distribution Width 12.8 % (11.5-14.5) Platelet Count 270 x10^3/uL (140-400) Neutrophils (%) (Auto) 73 % (31-73) Lymphocytes (%) (Auto) 19 % (24-48) L Monocytes (%) (Auto) 8 % (0-9) Eosinophils (%) (Auto) 1 % (0-3) Basophils (%) (Auto) 1 % (0-3) Neutrophils # (Auto) 6.1 x10^3uL (1.8-7.7) Lymphocytes # (Auto) 1.6 x10^3/uL (1.0-4.8) Monocytes # (Auto) 0.6 x10^3/uL (0.0-1.1) Eosinophils # (Auto) 0.1 x10^3/uL (0.0-0.7) Basophils # (Auto) 0.0 x10^3/uL (0.0-0.2) Prothrombin Time 12.6 SEC (11.7-14.0) Prothrombin Time INR 1.0 (0.8-1.1) PTT 32 SEC (24-38) Sodium Level 142 mmol/L (136-145) Potassium Level 4.3 mmol/L (3.5-5.1) Chloride Level 100 mmol/L (98-107) Carbon Dioxide Level 36 mmol/L (21-32) H Anion Gap 6 (6-14) Blood Urea Nitrogen 21 mg/dL (7-20) H Creatinine 1.4 mg/dL (0.6-1.0) H Estimated GFR (Cockcroft-Gault) 38.0 BUN/Creatinine Ratio 15 (6-20) Glucose Level 136 mg/dL (70-99) H Calcium Level 8.9 mg/dL (8.5-10.1) Total Bilirubin 0.4 mg/dL (0.2-1.0) Aspartate Amino Transferase (AST) 19 U/L (15-37) Alanine Aminotransferase (ALT) 27 U/L (14-59) Alkaline Phosphatase 70 U/L (46-116) Troponin I Quantitative < 0.017 ng/mL (0.000-0.055) UF-Sxk-I-Type Natriuretic Peptide 193 pg/mL (0-124) H Total Protein 7.4 g/dL (6.4-8.2) Albumin 3.5 g/dL (3.4-5.0) Albumin/Globulin Ratio 0.9 (1.0-1.7) L Ethyl Alcohol Level < 10 mg/dL (0-10) Urine Collection Type Unknown Urine Color Yellow Urine Clarity Clear Urine pH 5.5 Urine Specific [place] 1.010 Urine Protein Negative mg/dL (NEG-TRACE) Urine Glucose (UA) Negative mg/dL (NEG) Urine Ketones (Stick) Negative mg/dL (NEG) Urine Blood Negative (NEG) Urine Nitrite Negative (NEG) Urine Bilirubin Negative (NEG) Urine Urobilinogen Dipstick 0.2 mg/dL (0.2 mg/dL) Urine Leukocyte Esterase Small (NEG) Urine RBC 1-2 /HPF (0-2) Urine WBC 1-4 /HPF (0-4) Urine Squamous Epithelial Cells Few /LPF Urine Bacteria 0 /HPF (0-FEW) Urine Opiates Screen Neg (NEG) Urine Methadone Screen Neg (NEG) Urine Barbiturates Neg (NEG) Urine Phencyclidine Screen Neg (NEG) Urine Amphetamine/Methamphetamine Neg (NEG) Urine Benzodiazepines Screen Neg (NEG) Urine Cocaine Screen Neg (NEG) Urine Cannabinoids Screen Neg (NEG) Urine Ethyl Alcohol N (NEG) Laboratory Tests 07/10/17 12:40 Laboratory Tests 07/10/17 12:40 EKG EKG Interpreted by me: Normal sinus rhythm rate 60, no acute ST or T wave changes, normal intervals, no ectopy. [] Radiology/Procedures Radiology/Procedures PROCEDURE: CT HEAD WO CONTRAST CT head without contrast 07/10/2017 at 1258 hours Indication: Leg weakness, memory loss Comparison: CT head 08/04/2010 Technique: Multiple axial noncontrast CT images of the head were obtained from the skull base through the vertex. Findings: The ventricles, sulci and basal cisterns are within normal limits. Kumar-white matter differentiation is normal. There is no acute intracranial hemorrhage. There is no mass, mass effect or midline shift. Posterior fossa is within normal limits. Sellar and suprasellar cistern appear normal. Orbits are normal in appearance. Paranasal sinuses are well aerated. Mastoid air cells are well aerated. Scalp and calvaria are normal. Impression: There is no acute intracranial hemorrhage. PQRS Compliance Statement: One or more of the following individualized dose reduction techniques were utilized for this examination: 1. Automated exposure control 2. Adjustment of the mA and/or kV according to patient size 3. Use of iterative reconstruction technique DICTATED and SIGNED BY: REY ALMARAZ MD DATE: 07/10/17 1314 PROCEDURE: CHEST AP ONLY Chest radiograph 07/10/2017 at 1237 hours Indication: General weakness Comparison: Chest radiograph 06/27/2017, 05/30/2017 Technique: Single frontal view of the chest is provided. Findings: Cardiomediastinal silhouette is similar in appearance. No pleural effusions, pulmonary vascular congestion or pneumothorax. The lungs are clear. Remote healed right lateral eighth rib fracture. Impression: No acute cardiopulmonary process. DICTATED and SIGNED BY: REY ALMARAZ MD DATE: 07/10/17 1242 [] Course & Med Decision Making Course & Med Decision Making Pertinent Labs and Imaging studies reviewed. (See chart for details) The patient presents with altered mental status and lower extremity weakness. No focal findings on exam although she does seem confused. No obvious electrode abnormality, infection, intracranial process. Recommended admission to the hospital for further evaluation and treatment. The patient agreed with plan of care. Discussed with Dr. Waldrop who agrees to admit to inpatient status, neurology consult to Dr. Craig. The patient is admitted in stable condition. [] Dragon Disclaimer Dragon Disclaimer This electronic medical record was generated, in whole or in part, using a voice recognition dictation system. Departure Departure Impression: Primary Impression: Altered mental status Disposition: 09 ADMITTED INPATIENT Admitting Physician: Teo Waldrop Condition: STABLE Referrals: UNKNOWN PCP NAME (PCP) SANA SLADE MD Jul 10, 2017 13:28
[2017-07-10 13:34] LABS: BARBITURATES NEG (NEG); BENZODIAZEPINES NEG (NEG); CANNABINOIDS NEG (NEG); COCAINE NEG (NEG); METHADONE NEG (NEG); OPIATES NEG (NEG); PHENCYCLIDINE NEG (NEG)
[2017-07-10 13:35] LABS: PROTHROMBIN TIME PATIENT 12.6 SEC (11.7-14.0)
--- NOTE | 2017-07-10 14:10 | EKG ---
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
--- NOTE | 2017-07-10 14:37 | ACF ---
Admit Criteria Forms Admit Criteria Forms Admit Criteria Forms MENTAL STATUS CHANGE Clinical Indications for Inpatient Care (Place 'X' for any and all applicable criteria): Ongoing inpatient care may be needed for 1 or more of the following(1)(2)(3)(5)( 6): [ ]I. Suspected serious etiology (eg, medical disorder, [employer] event) of altered mental status [ ]II. Danger to self or others not manageable at lower level of care [ ]III. Grave disability (eg, inability to perform self care necessary at lower level of care) [ ]IV. Agitation or inappropriate behavior interfering with care for primary condition (eg, attempting to discontinue lines or drains prematurely, unable to cooperate with respiratory care) [ ]V. Delirium [A] [D][E] as described by 1 or more of the following(26): [ ]a) Delirium due to alcohol or sedative [F] withdrawal [ ]b) Delirium of uncertain etiology that has not responded to appropriate empiric treatment [ ]c) Delirium that prevents performance of a life-sustaining function (eg, feeding or hydrating oneself) [ X]. General contraindications and/or Inappropriate clinical situations for Observational Care in patients with Mental Status Change, when ANY ONE of the following is required: [X ]a) Prediction of prolongation of LOS based on ANY ONE of the following may be considered as a contraindication for observational care 2, 3, 4, 5, 6, 7, 8, 9, 10, 11 [ ]i) Age > 65 yrs. [ ]ii) Patient arriving by ambulance [ ]iii) Patient with high acuity [X ]iv) Patient requiring vital sign monitoring [ ]v) Patient on IV medication [ ]b) Systolic blood pressures greater than or equal to 180mmHg 3, 12 [ ]c) Patient with altered mental status including delirium and other alteration of consciousness, (3) [ ]d) Patient whose discharge disposition will be to a senior living home or rehabilitation home should not be managed in Emergency Department Observation Unit. CMS rule requires 3 days hospital stay before such placement.3,13 [ ]e) Patient with failure to thrive due to broad array of etiologies 3,16,17 [ ]f) Inability to ambulate 3,14 Extended stay beyond goal length of stay for the primary condition may be needed until ALL of the following are present(3)(5): [ ]a) Underlying medical etiology of mental status change is absent, or has been established and adequately treated [ ]b) Danger to self or others is absent or manageable at lower level of care. [ ]c) Behavior crisis management, including physical or chemical restraints, is not required or available at lower level of car [ ]d) Substance or alcohol withdrawal is absent or manageable at lower level of care. [ ]e) Behavioral symptoms (eg, agitation, somnolence, inappropriate behavior) are absent, or are manageable at lower level of care. The original [facility] content created by [facility] has been revised. The portions of the content which have been revised are identified through the use of italic text or in bold, and [facility] has neither reviewed nor approved the modified material. All other unmodified content is copyright [facility]. Please see references footnoted in the original [facility] edition 2016 LOPEZ MARTINS Jul 10, 2017 14:37
[2017-07-10] MEDS ORDERED: ACETAMINOPHEN 325 MG TABLET. PO PRN (15:00)
[2017-07-10] MEDS ORDERED: ONDANSETRON PF 4 MG/2 ML VIAL. IV PRN (15:00)
[2017-07-10] MEDS ORDERED: MORPHINE SULFATE 2 MG/ML DISP.SYRIN. IV PRN (15:00)
[2017-07-10 15:30] VITALS: BP 117/50
--- NOTE | 2017-07-10 18:20 | PDOC2 ---
NEUROLOGY CONSULT Date of Admission Date of Admission DATE: 07/10/17 TIME: 18:06 Reason for Consult Reason for Consult: IMPRESSION: TIA Speech difficulties. Dizziness Light headedness Weakness, LE. Metabolic encephalopathy. Hypoxia. Respiratory failure. COPD DM HTN HLD Hypothyroidism Obesity. RECOMMENDATIONS/PLAN: Brain MRI w/o contrast. Lab: see orders. Echo Carotid A US + Doppler. Treat medical diseases. 02 OT/PT. Discussed with her family at bedside. HISTORY OF THE PRESENT ILLNESS: 62-y-old female patient with above medical diseases especially hypoxia on on daily basis. She developed symptoms of mental status changes, dizziness, light headedness, weakness with LE > UE, speech difficulties on to come to the ER of [facility].. Her speech problems resolved after 6 hours and she was able to talk, but she still felt dizzy, light headedness, and weakness. PAST MEDICAL HISTORY: Anxiety, Bronchitis, COPD, Depression, Diabetes-Type II, High Cholesterol, Hypertension, Hyperthyroid, [place] Additional Past Medical Histor: EMPHYSEMA PAST SURGERY HISTORY: Angioplasty Left knee replacementx2, spinal fusion, right knee arthroplasty, CTR, ALLERGY: Reviewed. MEDICATIONS: Refer to [facility] FAMILY HISTORY: Non contributory. SOCIAL HISTORY: Lives at home. Denies smoking, drinking, and illicit drug use. REVIEW OF SYSTEMS: Constitutional: No malnutrition, weight loss, cachexia. Head: No traumatic brain or head injury. Skin: No edema, or rash. Ear: No infection. Eyes: No vision loss or color blindness. Nose: No bleeding or purulent discharges. Hearing: No hearing decrease. Neck: No injury. Breast: No history of cancer, masses,or discharges. Cardiac: HTN, HLD. Pulmonary: COPD. GI: No GI ulcer, GI bleeding. Urinary/genital: UTI. Endocrinologic: Diabetes Mellitus, hypothyroidism, obesity. Skeletomuscular: Generalized weakness. Neurological: see HP. Psychiatric: Denies drug use/abuse. Otherwise, not [id number] review of systems. PHYSICAL EXAMINATION: General appearance is in acute distress. HEENT: Normocephalic and nontraumatic. Eyes, nose, ears, and throat are unremarkable. Neck is supple. No lymphadenopathy. No bruits are heard over the carotid artery. No crepitus. Cardiovascular: S1, S2, regular rate and rhythm. Pulmonary: breath sounds decreased bilaterally. Abdomen: Bowel sounds are positive. Abdomen is soft, nontender, and nondistended. Extremities: No rash, lesions, or edema. No restriction of range of motion NEUROLOGICAL EXAMINATION: Awake. Oriented to place and person. PERRL. EOMI. CN: no focal findings. Muscle tone: within normal. Muscle strength: 4 DTR: 1 Plantar reflex: Flexor response bilaterally Gait: not examined in bed. Sensory exam: no abnormal findings. No obvious cerebellar signs elicited. F-T-N test fine. Mild hand tremors noted in hands. Current Medications Current Medications Current Medications Ondansetron HCl (Zofran) 4 mg PRN Q8HRS PRN IV NAUSEA/VOMITING; Start 07/10/17 at 15:00; Stop 07/11/17 at 14:59 Morphine Sulfate 2 mg PRN Q2HR PRN IV PAIN; Start 07/10/17 at 15:00; Stop 07/11 at 14:59 Acetaminophen (Tylenol) 650 mg PRN Q4HRS PRN PO FEVER; Start 07/10/17 at 15:00 ; Stop 07/11/17 at 14:59 Active Scripts Active Spironolactone 50 Mg Tablet 1 Tab PO DAILY Duoneb 0.5-3(2.5) Mg/3 Ml (Albuterol/Ipratropium) 3 Ml Ampul.neb 3 Ml NEB RTQID 30 Days Amlodipine Besylate 2.5 Mg Tablet 5 Mg PO DAILY 30 Days Carafate (Sucralfate) 1 Gm Tablet 1 Gm PO QIDACHS 30 Days Effient (Prasugrel Hcl) 10 Mg Tablet 10 Mg PO [id number] Reported Citalopram Hbr (Citalopram Hydrobromide) 40 Mg Tablet 40 Mg PO DAILY Diovan (Valsartan) 160 Mg Tablet 160 Mg PO DAILY Valacyclovir (Valacyclovir Hcl) 500 Mg Tablet 500 Mg PO BID Atorvastatin Calcium 20 Mg Tablet 20 Mg PO DAILY Isosorbide Mononitrate Er (Isosorbide Mononitrate) 30 Mg Tab.er.24h 30 Mg PO DAILY Levothyroxine Sodium 88 Mcg Tablet 88 Mcg PO DAILY06 Nexium Capsule (Esomeprazole Magnesium) 40 Mg Capsule. 1 Cap PO DAILY Metoprolol Succinate ( Xl ) (Metoprolol Succinate) 25 Mg Tab.er.24h 2 Tab PO DAILY Aspir 81 (Aspirin) 81 Mg Tablet.dr 1 Tab PO DAILY Fenofibrate (Fenofibrate Nanocrystallized) 145 Mg Tablet 160 Mg PO DAILY Metformin Hcl 1,000 Mg Tablet 1,000 Mg PO BID Allergies Allergies: Coded Allergies: levofloxacin (Verified Allergy, Intermediate, Hives, 03/05/17) Vitals VITALS Vital Signs Date Time Temp Pulse Resp B/P (MAP) Pulse Ox O2 Delivery O2 Flow Rate FiO2 07/10/17 16:44 Nasal Cannula 3.0 07/10/17 15:30 98.2 71 22 117/50 (72) 96 98.2 Labs Labs Laboratory Tests Test 07/10/17 12:40 07/10/17 12:55 White Blood Count 8.4 x10^3/uL (4.0-11.0) Red Blood Count 3.87 x10^6/uL (3.50-5.40) Hemoglobin 11.2 g/dL (12.0-15.5) Hematocrit 34.7 % (36.0-47.0) Mean Corpuscular Volume 90 fL (79-100) Mean Corpuscular Hemoglobin 29 pg (25-35) Mean Corpuscular Hemoglobin Concent 32 g/dL (31-37) Red Cell Distribution Width 12.8 % (11.5-14.5) Platelet Count 270 x10^3/uL (140-400) Neutrophils (%) (Auto) 73 % (31-73) Lymphocytes (%) (Auto) 19 % (24-48) Monocytes (%) (Auto) 8 % (0-9) Eosinophils (%) (Auto) 1 % (0-3) Basophils (%) (Auto) 1 % (0-3) Neutrophils # (Auto) 6.1 x10^3uL (1.8-7.7) Lymphocytes # (Auto) 1.6 x10^3/uL (1.0-4.8) Monocytes # (Auto) 0.6 x10^3/uL (0.0-1.1) Eosinophils # (Auto) 0.1 x10^3/uL (0.0-0.7) Basophils # (Auto) 0.0 x10^3/uL (0.0-0.2) Prothrombin Time 12.6 SEC (11.7-14.0) Prothromb Time International Ratio 1.0 (0.8-1.1) Activated Partial Thromboplast Time 32 SEC (24-38) Sodium Level 142 mmol/L (136-145) Potassium Level 4.3 mmol/L (3.5-5.1) Chloride Level 100 mmol/L (98-107) Carbon Dioxide Level 36 mmol/L (21-32) Anion Gap 6 (6-14) Blood Urea Nitrogen 21 mg/dL (7-20) Creatinine 1.4 mg/dL (0.6-1.0) Estimated GFR (Cockcroft-Gault) 38.0 BUN/Creatinine Ratio 15 (6-20) Glucose Level 136 mg/dL (70-99) Calcium Level 8.9 mg/dL (8.5-10.1) Total Bilirubin 0.4 mg/dL (0.2-1.0) Aspartate Amino Transf (AST/SGOT) 19 U/L (15-37) Alanine Aminotransferase (ALT/SGPT) 27 U/L (14-59) Alkaline Phosphatase 70 U/L (46-116) Creatine Kinase 36 U/L (26-192) Troponin I Quantitative < 0.017 ng/mL (0.000-0.055) RG-Sgh-V-Type Natriuretic Peptide 193 pg/mL (0-124) Total Protein 7.4 g/dL (6.4-8.2) Albumin 3.5 g/dL (3.4-5.0) Albumin/Globulin Ratio 0.9 (1.0-1.7) Vitamin B12 Level 256 pg/mL (247-911) Thyroid Stimulating Hormone (TSH) 5.857 uIU/mL (0.358-3.74) Ethyl Alcohol Level < 10 mg/dL (0-10) Urine Collection Type Unknown Urine Color Yellow Urine Clarity Clear Urine pH 5.5 Urine Specific [place] 1.010 Urine Protein Negative mg/dL (NEG-TRACE) Urine Glucose (UA) Negative mg/dL (NEG) Urine Ketones (Stick) Negative mg/dL (NEG) Urine Blood Negative (NEG) Urine Nitrite Negative (NEG) Urine Bilirubin Negative (NEG) Urine Urobilinogen Dipstick 0.2 mg/dL (0.2 mg/dL) Urine Leukocyte Esterase Small (NEG) Urine RBC 1-2 /HPF (0-2) Urine WBC 1-4 /HPF (0-4) Urine Squamous Epithelial Cells Few /LPF Urine Bacteria 0 /HPF (0-FEW) Urine Opiates Screen Neg (NEG) Urine Methadone Screen Neg (NEG) Urine Barbiturates Neg (NEG) Urine Phencyclidine Screen Neg (NEG) Urine Amphetamine/Methamphetamine Neg (NEG) Urine Benzodiazepines Screen Neg (NEG) Urine Cocaine Screen Neg (NEG) Urine Cannabinoids Screen Neg (NEG) Urine Ethyl Alcohol N (NEG) Laboratory Tests Test 07/10/17 12:40 07/10/17 12:55 White Blood Count 8.4 x10^3/uL (4.0-11.0) Red Blood Count 3.87 x10^6/uL (3.50-5.40) Hemoglobin 11.2 g/dL (12.0-15.5) Hematocrit 34.7 % (36.0-47.0) Mean Corpuscular Volume 90 fL (79-100) Mean Corpuscular Hemoglobin 29 pg (25-35) Mean Corpuscular Hemoglobin Concent 32 g/dL (31-37) Red Cell Distribution Width 12.8 % (11.5-14.5) Platelet Count 270 x10^3/uL (140-400) Neutrophils (%) (Auto) 73 % (31-73) Lymphocytes (%) (Auto) 19 % (24-48) Monocytes (%) (Auto) 8 % (0-9) Eosinophils (%) (Auto) 1 % (0-3) Basophils (%) (Auto) 1 % (0-3) Neutrophils # (Auto) 6.1 x10^3uL (1.8-7.7) Lymphocytes # (Auto) 1.6 x10^3/uL (1.0-4.8) Monocytes # (Auto) 0.6 x10^3/uL (0.0-1.1) Eosinophils # (Auto) 0.1 x10^3/uL (0.0-0.7) Basophils # (Auto) 0.0 x10^3/uL (0.0-0.2) Prothrombin Time 12.6 SEC (11.7-14.0) Prothromb Time International Ratio 1.0 (0.8-1.1) Activated Partial Thromboplast Time 32 SEC (24-38) Sodium Level 142 mmol/L (136-145) Potassium Level 4.3 mmol/L (3.5-5.1) Chloride Level 100 mmol/L (98-107) Carbon Dioxide Level 36 mmol/L (21-32) Anion Gap 6 (6-14) Blood Urea Nitrogen 21 mg/dL (7-20) Creatinine 1.4 mg/dL (0.6-1.0) Estimated GFR (Cockcroft-Gault) 38.0 BUN/Creatinine Ratio 15 (6-20) Glucose Level 136 mg/dL (70-99) Calcium Level 8.9 mg/dL (8.5-10.1) Total Bilirubin 0.4 mg/dL (0.2-1.0) Aspartate Amino Transf (AST/SGOT) 19 U/L (15-37) Alanine Aminotransferase (ALT/SGPT) 27 U/L (14-59) Alkaline Phosphatase 70 U/L (46-116) Creatine Kinase 36 U/L (26-192) Troponin I Quantitative < 0.017 ng/mL (0.000-0.055) TW-Cof-U-Type Natriuretic Peptide 193 pg/mL (0-124) Total Protein 7.4 g/dL (6.4-8.2) Albumin 3.5 g/dL (3.4-5.0) Albumin/Globulin Ratio 0.9 (1.0-1.7) Vitamin B12 Level 256 pg/mL (247-911) Thyroid Stimulating Hormone (TSH) 5.857 uIU/mL (0.358-3.74) Ethyl Alcohol Level < 10 mg/dL (0-10) Urine Collection Type Unknown Urine Color Yellow Urine Clarity Clear Urine pH 5.5 Urine Specific [place] 1.010 Urine Protein Negative mg/dL (NEG-TRACE) Urine Glucose (UA) Negative mg/dL (NEG) Urine Ketones (Stick) Negative mg/dL (NEG) Urine Blood Negative (NEG) Urine Nitrite Negative (NEG) Urine Bilirubin Negative (NEG) Urine Urobilinogen Dipstick 0.2 mg/dL (0.2 mg/dL) Urine Leukocyte Esterase Small (NEG) Urine RBC 1-2 /HPF (0-2) Urine WBC 1-4 /HPF (0-4) Urine Squamous Epithelial Cells Few /LPF Urine Bacteria 0 /HPF (0-FEW) Urine Opiates Screen Neg (NEG) Urine Methadone Screen Neg (NEG) Urine Barbiturates Neg (NEG) Urine Phencyclidine Screen Neg (NEG) Urine Amphetamine/Methamphetamine Neg (NEG) Urine Benzodiazepines Screen Neg (NEG) Urine Cocaine Screen Neg (NEG) Urine Cannabinoids Screen Neg (NEG) Urine Ethyl Alcohol N (NEG) SANJIV GRIMM MD Jul 10, 2017 18:20
[2017-07-10 19:00] VITALS: BP 134/70
[2017-07-10] MEDS ORDERED: MORPHINE SULFATE 4 MG/ML DISP.SYRIN. IV PRN (20:15)
[2017-07-10] MEDS: ASPIRIN 325 MG TABLET PO SCH (20:27)
[2017-07-10] MEDS: ALBUTEROL SULFATE 2.5 MG/3 ML NEBU. NEB SCH (21:17)
[2017-07-10 22:58] VITALS: BP 113/56
[2017-07-11 03:00] VITALS: BP 112/62
[2017-07-11 05:53] LABS: BASO % 1 % (0-3); EOS % 1 % (0-3); LYMPH # 1.9 x10^3/uL (1.0-4.8); LYMPH % 26 % (24-48); MEAN CORPUSCULAR HEMOGLOBIN 29 pg (25-35); MEAN CORPUSCULAR HGB CONC 33 g/dL (31-37); MEAN CORPUSCULAR VOLUME 89 fL (79-100); MONO % 9 % (0-9); NEUT % 63 % (31-73); PLATELET COUNT 240 x10^3/uL (140-400); RED CELL DISTRIBUTION WIDTH 12.7 % (11.5-14.5); WHITE BLOOD COUNT 7.5 x10^3/uL (4.0-11.0)
[2017-07-11 06:12] LABS: CALCIUM 8.5 mg/dL (8.5-10.1); CREATININE 1.5 mg/dL (0.6-1.0); GFR 35.1; POTASSIUM 3.9 mmol/L (3.5-5.1)
[2017-07-11 06:19] LABS: CHOLESTEROL/HDL RATIO 5.9
[2017-07-11] MEDS: ALBUTEROL SULFATE 2.5 MG/3 ML NEBU. NEB SCH ×2 (07:11→19:34)
--- NOTE | 2017-07-11 08:17 | RAD ---
Carotid Doppler 07/10/2017 at 1951 hours Indication: Right-sided weakness with speech difficulties and visual disturbance. Previous smoker with coronary artery disease. Comparison: None available Technique: Sonographic imaging of the neck vessels performed utilizing grayscale, color Doppler and spectral waveform analysis. Findings: Right carotid: There is a partly calcified filling defect involving the proximal to distal right common carotid artery with greater than 50% stenosis of the lumen. Calcified atherosclerotic plaque is noted at the carotid bifurcation with less than 50% luminal stenosis. Peak systolic velocity: Proximal common carotid artery: 47 cm/s Middle common carotid artery 47 cm/s Distal common carotid artery: 56 cm/s Proximal internal carotid artery: 57 cm/s Mid internal carotid artery: 75 cm/s Distal internal carotid artery: 74 cm/s External carotid artery: 101 cm/s End-diastolic velocity: Proximal common carotid artery: 14 cm/s Middle common carotid artery 13 cm/s Distal common carotid artery: 17 cm/s Proximal internal carotid artery: 18 cm/s Mid internal carotid artery: 28 cm/s Distal internal carotid artery: 23 cm/s Proximal ICA/CCA ratio: 1.2 Mid ICA/ECA ratio: 1.6 Distal ICA/CCA ratio 1.6 Antegrade flow is identified within the vertebral artery. No subclavian stenosis. Left carotid: There is calcified atherosclerotic plaque involving the mid to distal left common carotid artery as well as carotid bifurcation with less than 50% luminal stenosis. Proximal common carotid artery: 86 cm/s Middle common carotid artery 67 cm/s Distal common carotid artery: 73 cm/s Proximal internal carotid artery: 66 cm/s Mid internal carotid artery: 65 cm/s Distal internal carotid artery: 62 cm/s External carotid artery: 104 cm/s End- diastolic velocity: Proximal common carotid artery: 25 cm/s Middle common carotid artery 17 cm/s Distal common carotid artery: 19 cm/s Proximal internal carotid artery: 19 cm/s Mid internal carotid artery: 20 cm/s Distal internal carotid artery: 23 cm/s Proximal ICA/CCA ratio: 0.99 Mid ICA/ECA ratio: 0.97 Distal ICA/CCA ratio 0.92 Antegrade flow is identified in the vertebral artery. No subclavian stenosis. Impression: 1. There is at least moderate stenosis of the proximal to mid right common carotid artery secondary to calcified and noncalcified atherosclerotic plaque. Mild stenosis is noted at the right carotid bifurcation secondary to atherosclerotic calcification. 2. Mild stenosis of the left common carotid artery secondary to atherosclerotic calcification. Mild stenosis at the proximal left internal carotid artery secondary to calcified atherosclerotic changes. 3. Antegrade flow is identified in the vertebral arteries.
[2017-07-11 08:34] VITALS: BP 131/61
--- NOTE | 2017-07-11 08:56 | RAD ---
INDICATION: Speech difficulties, left-sided weakness. Patient unable to remain still. TECHNIQUE: Sagittal T1, axial T1, axial T2, axial FLAIR, axial T2 gradient, coronal T2, and diffusion imaging with ADC map was performed. No comparison is available. FINDINGS: There is motion degradation despite repeat imaging. There is still diagnostic information available. There is prominence of the ventricles and sulci. There is no acute intracranial hemorrhage or extra-axial fluid collection. There is no mass effect or midline shift. There is no restricted diffusion to suggest an acute infarct. Cervicomedullary junction is unremarkable. Pituitary and suprasellar region are unremarkable. Central intracranial flow voids are preserved. Paranasal sinuses are clear. Right mastoid air cells are pacified. IMPRESSION: 1. Motion limited study demonstrates no acute intracranial findings. 2. Brain parenchymal volume loss. Electronically signed by: Quinton Banks MD (07/11/2017 8:53 AM) [id number]
[2017-07-11] MEDS: ASPIRIN 325 MG TABLET PO SCH (08:57)
--- NOTE | 2017-07-11 09:58 | PDOC1 ---
History and Physical Date of Admission Date of Admission DATE: 07/10/17 Identification/Chief Complaint Chief Complaint confusion, shaking Problems: Source Source: Chart review, Patient History of Present Illness History of Present Illness Patient is a 62 year old female who presents with altered mental status & leg weakness. She developed symptoms yesterday morning. She was in lobby in her building when felt shaky and weak in her bilateral lower extremities, also had memory loss and difficulty talking and communicating felt confused . She states her speech sounded unusual. She felt lightheaded/dizzy. She denies fevers/chills, headache, vision changes, chest pain, shortness of breath. She has history of DM, HTN, CAD, CHF, COPD. Past Medical History Cardiovascular: CAD, HTN, MD, Hyperlipidemia, Valve insufficiency, Pulmonary hypertension Pulmonary: COPD, Other CENTRAL NERVOUS SYSTEM: Carpal Tunnel Syndrome, Periperal neuropathy GI: GERD Heme/Onc: No pertinent hx Hepatobiliary: No pertinent hx Psych: Anxiety, Depression Musculoskeletal: low back pain, Osteoarthritis, Other Rheumatologic: No pertinent hx Infectious disease: Herpes simplex2 Renal/: No pertinent hx, UTI, Urinary Incontinence Endocrine: Diabetes, Hypothyroidism, Osteoporosis Past Surgical History Past Surgical History: Cholecystectomy, Total knee replacement, Tubal Ligation , Hysterectomy, Other Family History Family History: Diabetes, Hypertension, Other Social History Smoke: Quit ALCOHOL: none Drugs: None Current Problem List Problem List Problems Medical Problems: (1) Altered mental status Status: Acute Problems: Current Medications Current Medications Current Medications Ondansetron HCl (Zofran) 4 mg PRN Q8HRS PRN IV NAUSEA/VOMITING; Start 07/10/17 at 15:00; Stop 07/11/17 at 14:59 Morphine Sulfate 2 mg PRN Q2HR PRN IV PAIN; Start 07/10/17 at 15:00; Stop 07/10 at 20:11; Status DC Acetaminophen (Tylenol) 650 mg PRN Q4HRS PRN PO FEVER; Start 07/10/17 at 15:00 ; Stop 07/11/17 at 14:59 Aspirin (Madan Aspirin) 325 mg DAILYWBKFT PO Last administered on 07/11/17 08: 57; Start 07/10/17 at 19:00 Morphine Sulfate 2 mg PRN Q2HR PRN IV PAIN Last administered on 07/10/17 20:23 ; Start 07/10/17 at 20:15 Albuterol Sulfate (Ventolin Neb Soln) 2.5 mg RTQID NEB Last administered on t 07:11; Start 07/10/17 at 20:45 Active Scripts Active Spironolactone 50 Mg Tablet 1 Tab PO DAILY Duoneb 0.5-3(2.5) Mg/3 Ml (Albuterol/Ipratropium) 3 Ml Ampul.neb 3 Ml NEB RTQID 30 Days Amlodipine Besylate 2.5 Mg Tablet 5 Mg PO DAILY 30 Days Carafate (Sucralfate) 1 Gm Tablet 1 Gm PO QIDACHS 30 Days Effient (Prasugrel Hcl) 10 Mg Tablet 10 Mg PO DAILYWBKFT Reported Citalopram Hbr (Citalopram Hydrobromide) 40 Mg Tablet 40 Mg PO DAILY Diovan (Valsartan) 160 Mg Tablet 160 Mg PO DAILY Valacyclovir (Valacyclovir Hcl) 500 Mg Tablet 500 Mg PO BID Atorvastatin Calcium 20 Mg Tablet 20 Mg PO DAILY Isosorbide Mononitrate Er (Isosorbide Mononitrate) 30 Mg Tab.er.24h 30 Mg PO DAILY Levothyroxine Sodium 88 Mcg Tablet 88 Mcg PO DAILY06 Nexium Capsule (Esomeprazole Magnesium) 40 Mg Capsule.dr 1 Cap PO DAILY Metoprolol Succinate ( Xl ) (Metoprolol Succinate) 25 Mg Tab.er.24h 2 Tab PO DAILY Aspir 81 (Aspirin) 81 Mg Tablet.dr 1 Tab PO DAILY Fenofibrate (Fenofibrate Nanocrystallized) 145 Mg Tablet 160 Mg PO DAILY Metformin Hcl 1,000 Mg Tablet 1,000 Mg PO BID Allergies Allergies: Coded Allergies: levofloxacin (Verified Allergy, Intermediate, Hives, 03/05/17) ROS General: YES: Fatigue PSYCHOLOGICAL ROS: YES: Anxiety Respiratory: YES: Shortness of breath, SOB with excertion, Wheezing Neurological: Yes Behavorial Changes, Yes Confusion, Yes Dizziness, Yes Gait Disturbance, Yes Memory Loss, Yes Tremors, Yes Weakness Physical Exam General: Alert, No acute distress HEENT: Atraumatic, PERRLA Lungs: Other (decrease air movement and wheezing) Heart: RRR Abdomen: Normal bowel sounds, Soft, No tenderness Extremities: No clubbing, No cyanosis, No edema Skin: No rashes Neuro: Normal speech, Normal tone, Cranial nerves 3-12 NL Psych/Mental Status: Mental status NL (now) Vitals Vitals Vital Signs Date Time Temp Pulse Resp B/P (MAP) Pulse Ox O2 Delivery O2 Flow Rate FiO2 07/11/17 08:34 98.2 98 22 131/61 (84) 92 Nasal Cannula 3.0 98.2 Labs Labs Laboratory Tests Test 07/10/17 12:40 07/10/17 12:55 07/10/17 21:39 07/11/17 04:20 White Blood Count 8.4 x10^3/uL (4.0-11.0) 7.5 x10^3/uL (4.0-11.0) Red Blood Count 3.87 x10^6/uL (3.50-5.40) 3.80 x10^6/uL (3.50-5.40) Hemoglobin 11.2 g/dL (12.0-15.5) 11.0 g/dL (12.0-15.5) Hematocrit 34.7 % (36.0-47.0) 34.0 % (36.0-47.0) Mean Corpuscular Volume 90 fL (79-100) 89 fL (79-100) Mean Corpuscular Hemoglobin 29 pg (25-35) 29 pg (25-35) Mean Corpuscular Hemoglobin Concent 32 g/dL (31-37) 33 g/dL (31-37) Red Cell Distribution Width 12.8 % (11.5-14.5) 12.7 % (11.5-14.5) Platelet Count 270 x10^3/uL (140-400) 240 x10^3/uL (140-400) Neutrophils (%) (Auto) 73 % (31-73) 63 % (31-73) Lymphocytes (%) (Auto) 19 % (24-48) 26 % (24-48) Monocytes (%) (Auto) 8 % (0-9) 9 % (0-9) Eosinophils (%) (Auto) 1 % (0-3) 1 % (0-3) Basophils (%) (Auto) 1 % (0-3) 1 % (0-3) Neutrophils # (Auto) 6.1 x10^3uL (1.8-7.7) 4.7 x10^3uL (1.8-7.7) Lymphocytes # (Auto) 1.6 x10^3/uL (1.0-4.8) 1.9 x10^3/uL (1.0-4.8) Monocytes # (Auto) 0.6 x10^3/uL (0.0-1.1) 0.7 x10^3/uL (0.0-1.1) Eosinophils # (Auto) 0.1 x10^3/uL (0.0-0.7) 0.1 x10^3/uL (0.0-0.7) Basophils # (Auto) 0.0 x10^3/uL (0.0-0.2) 0.0 x10^3/uL (0.0-0.2) Prothrombin Time 12.6 SEC (11.7-14.0) Prothromb Time International Ratio 1.0 (0.8-1.1) Activated Partial Thromboplast Time 32 SEC (24-38) Sodium Level 142 mmol/L (136-145) 141 mmol/L (136-145) Potassium Level 4.3 mmol/L (3.5-5.1) 3.9 mmol/L (3.5-5.1) Chloride Level 100 mmol/L (98-107) 101 mmol/L (98-107) Carbon Dioxide Level 36 mmol/L (21-32) 34 mmol/L (21-32) Anion Gap 6 (6-14) 6 (6-14) Blood Urea Nitrogen 21 mg/dL (7-20) 24 mg/dL (7-20) Creatinine 1.4 mg/dL (0.6-1.0) 1.5 mg/dL (0.6-1.0) Estimated GFR (Cockcroft-Gault) 38.0 35.1 BUN/Creatinine Ratio 15 (6-20) Glucose Level 136 mg/dL (70-99) 159 mg/dL (70-99) Calcium Level 8.9 mg/dL (8.5-10.1) 8.5 mg/dL (8.5-10.1) Total Bilirubin 0.4 mg/dL (0.2-1.0) Aspartate Amino Transf (AST/SGOT) 19 U/L (15-37) Alanine Aminotransferase (ALT/SGPT) 27 U/L (14-59) Alkaline Phosphatase 70 U/L (46-116) Creatine Kinase 36 U/L (26-192) Troponin I Quantitative < 0.017 ng/mL (0.000-0.055) AI-Bbz-M-Type Natriuretic Peptide 193 pg/mL (0-124) Total Protein 7.4 g/dL (6.4-8.2) Albumin 3.5 g/dL (3.4-5.0) Albumin/Globulin Ratio 0.9 (1.0-1.7) Vitamin B12 Level 256 pg/mL (247-911) Thyroid Stimulating Hormone (TSH) 5.857 uIU/mL (0.358-3.74) Ethyl Alcohol Level < 10 mg/dL (0-10) Urine Collection Type Unknown Urine Color Yellow Urine Clarity Clear Urine pH 5.5 Urine Specific [place] 1.010 Urine Protein Negative mg/dL (NEG-TRACE) Urine Glucose (UA) Negative mg/dL (NEG) Urine Ketones (Stick) Negative mg/dL (NEG) Urine Blood Negative (NEG) Urine Nitrite Negative (NEG) Urine Bilirubin Negative (NEG) Urine Urobilinogen Dipstick 0.2 mg/dL (0.2 mg/dL) Urine Leukocyte Esterase Small (NEG) Urine RBC 1-2 /HPF (0-2) Urine WBC 1-4 /HPF (0-4) Urine Squamous Epithelial Cells Few /LPF Urine Bacteria 0 /HPF (0-FEW) Urine Opiates Screen Neg (NEG) Urine Methadone Screen Neg (NEG) Urine Barbiturates Neg (NEG) Urine Phencyclidine Screen Neg (NEG) Urine Amphetamine/Methamphetamine Neg (NEG) Urine Benzodiazepines Screen Neg (NEG) Urine Cocaine Screen Neg (NEG) Urine Cannabinoids Screen Neg (NEG) Urine Ethyl Alcohol N (NEG) Glucose (Fingerstick) 187 mg/dL (70-99) Triglycerides Level 149 mg/dL (0-150) Cholesterol Level 199 mg/dL (0-200) LDL Cholesterol, Calculated 135 mg/dL (0-100) VLDL Cholesterol, Calculated 30 mg/dL (0-40) Non-HDL Cholesterol Calculated 165 mg/dL (0-129) HDL Cholesterol 34 mg/dL (40-60) Cholesterol/HDL Ratio 5.9 Test 07/11/17 08:20 Glucose (Fingerstick) 140 mg/dL (70-99) Laboratory Tests Test 07/10/17 12:40 07/10/17 12:55 07/10/17 21:39 07/11/17 04:20 White Blood Count 8.4 x10^3/uL (4.0-11.0) 7.5 x10^3/uL (4.0-11.0) Red Blood Count 3.87 x10^6/uL (3.50-5.40) 3.80 x10^6/uL (3.50-5.40) Hemoglobin 11.2 g/dL (12.0-15.5) 11.0 g/dL (12.0-15.5) Hematocrit 34.7 % (36.0-47.0) 34.0 % (36.0-47.0) Mean Corpuscular Volume 90 fL (79-100) 89 fL (79-100) Mean Corpuscular Hemoglobin 29 pg (25-35) 29 pg (25-35) Mean Corpuscular Hemoglobin Concent 32 g/dL (31-37) 33 g/dL (31-37) Red Cell Distribution Width 12.8 % (11.5-14.5) 12.7 % (11.5-14.5) Platelet Count 270 x10^3/uL (140-400) 240 x10^3/uL (140-400) Neutrophils (%) (Auto) 73 % (31-73) 63 % (31-73) Lymphocytes (%) (Auto) 19 % (24-48) 26 % (24-48) Monocytes (%) (Auto) 8 % (0-9) 9 % (0-9) Eosinophils (%) (Auto) 1 % (0-3) 1 % (0-3) Basophils (%) (Auto) 1 % (0-3) 1 % (0-3) Neutrophils # (Auto) 6.1 x10^3uL (1.8-7.7) 4.7 x10^3uL (1.8-7.7) Lymphocytes # (Auto) 1.6 x10^3/uL (1.0-4.8) 1.9 x10^3/uL (1.0-4.8) Monocytes # (Auto) 0.6 x10^3/uL (0.0-1.1) 0.7 x10^3/uL (0.0-1.1) Eosinophils # (Auto) 0.1 x10^3/uL (0.0-0.7) 0.1 x10^3/uL (0.0-0.7) Basophils # (Auto) 0.0 x10^3/uL (0.0-0.2) 0.0 x10^3/uL (0.0-0.2) Prothrombin Time 12.6 SEC (11.7-14.0) Prothromb Time International Ratio 1.0 (0.8-1.1) Activated Partial Thromboplast Time 32 SEC (24-38) Sodium Level 142 mmol/L (136-145) 141 mmol/L (136-145) Potassium Level 4.3 mmol/L (3.5-5.1) 3.9 mmol/L (3.5-5.1) Chloride Level 100 mmol/L (98-107) 101 mmol/L (98-107) Carbon Dioxide Level 36 mmol/L (21-32) 34 mmol/L (21-32) Anion Gap 6 (6-14) 6 (6-14) Blood Urea Nitrogen 21 mg/dL (7-20) 24 mg/dL (7-20) Creatinine 1.4 mg/dL (0.6-1.0) 1.5 mg/dL (0.6-1.0) Estimated GFR (Cockcroft-Gault) 38.0 35.1 BUN/Creatinine Ratio 15 (6-20) Glucose Level 136 mg/dL (70-99) 159 mg/dL (70-99) Calcium Level 8.9 mg/dL (8.5-10.1) 8.5 mg/dL (8.5-10.1) Total Bilirubin 0.4 mg/dL (0.2-1.0) Aspartate Amino Transf (AST/SGOT) 19 U/L (15-37) Alanine Aminotransferase (ALT/SGPT) 27 U/L (14-59) Alkaline Phosphatase 70 U/L (46-116) Creatine Kinase 36 U/L (26-192) Troponin I Quantitative < 0.017 ng/mL (0.000-0.055) KH-Hif-X-Type Natriuretic Peptide 193 pg/mL (0-124) Total Protein 7.4 g/dL (6.4-8.2) Albumin 3.5 g/dL (3.4-5.0) Albumin/Globulin Ratio 0.9 (1.0-1.7) Vitamin B12 Level 256 pg/mL (247-911) Thyroid Stimulating Hormone (TSH) 5.857 uIU/mL (0.358-3.74) Ethyl Alcohol Level < 10 mg/dL (0-10) Urine Collection Type Unknown Urine Color Yellow Urine Clarity Clear Urine pH 5.5 Urine Specific [place] 1.010 Urine Protein Negative mg/dL (NEG-TRACE) Urine Glucose (UA) Negative mg/dL (NEG) Urine Ketones (Stick) Negative mg/dL (NEG) Urine Blood Negative (NEG) Urine Nitrite Negative (NEG) Urine Bilirubin Negative (NEG) Urine Urobilinogen Dipstick 0.2 mg/dL (0.2 mg/dL) Urine Leukocyte Esterase Small (NEG) Urine RBC 1-2 /HPF (0-2) Urine WBC 1-4 /HPF (0-4) Urine Squamous Epithelial Cells Few /LPF Urine Bacteria 0 /HPF (0-FEW) Urine Opiates Screen Neg (NEG) Urine Methadone Screen Neg (NEG) Urine Barbiturates Neg (NEG) Urine Phencyclidine Screen Neg (NEG) Urine Amphetamine/Methamphetamine Neg (NEG) Urine Benzodiazepines Screen Neg (NEG) Urine Cocaine Screen Neg (NEG) Urine Cannabinoids Screen Neg (NEG) Urine Ethyl Alcohol N (NEG) Glucose (Fingerstick) 187 mg/dL (70-99) Triglycerides Level 149 mg/dL (0-150) Cholesterol Level 199 mg/dL (0-200) LDL Cholesterol, Calculated 135 mg/dL (0-100) VLDL Cholesterol, Calculated 30 mg/dL (0-40) Non-HDL Cholesterol Calculated 165 mg/dL (0-129) HDL Cholesterol 34 mg/dL (40-60) Cholesterol/HDL Ratio 5.9 Test 07/11/17 08:20 Glucose (Fingerstick) 140 mg/dL (70-99) VTE Prophylaxis Ordered VTE Prophylaxis Devices: Yes VTE Pharmacological Prophylaxi: Yes Assessment/Plan Assessment/Plan 1. change mental status , cause not clear , she was out of pain meds ? withdrwal 2.COPD exacerbation and hypoxia continue breathing Tx and start steroids 3.CAD 4. ? TIA plan admit neuro consult, treat copd and medical disease AURA TEJEDA MD Jul 11, 2017 09:58
[2017-07-11 11:00] VITALS: BP 135/69
[2017-07-11] MEDS: IPRATRPIUM/ALBUTEROL 0.5/2.5MG 3 ML NEBU. NEB SCH ×3 (11:06→19:34)
[2017-07-11] MEDS: FENOFIBRATE,MICRONIZED 134 MG CAPSULE PO SCH (11:07)
[2017-07-11] MEDS: PANTOPRAZOLE 40 MG TABLET.DR. PO SCH (11:07)
[2017-07-11] MEDS: ENOXAPARIN 40 MG/0.4 ML SYRINGE. SQ SCH (11:07)
[2017-07-11] MEDS: SUCRALFATE 1 GM TABLET. PO SCH ×3 (11:08→20:32)
[2017-07-11] MEDS: PRASUGREL 10 MG TABLET. PO SCH (11:09)
[2017-07-11] MEDS: CITALOPRAM 20 MG TABLET. PO SCH (11:09)
[2017-07-11] MEDS: METOPROLOL SUCC 24HR ER 50 MG TAB.ER.24H. PO SCH (11:09)
[2017-07-11] MEDS: methylPREDNISolone SOD SUCC PF 40 MG/ML VIAL. IV SCH ×2 (11:09→22:40)
[2017-07-11] MEDS: ISOSORBIDE MONONITRATE ER 30 MG TAB.ER.24H PO SCH (11:10)
[2017-07-11] MEDS: LEVOTHYROXINE 88 MCG TABLET PO SCH (11:11)
[2017-07-11] MEDS: valACYclovir 500 MG TABLET. PO SCH ×2 (11:11→20:32)
[2017-07-11] MEDS: SPIRONOLACTONE 25 MG TABLET PO SCH (11:11)
[2017-07-11] MEDS: amLODIPine BESYLATE 5 MG TABLET PO SCH (11:11)
[2017-07-11] MEDS ORDERED: ASPIRIN ENTERIC COATED 81 MG TABLET.DR. PO SCH (12:00)
--- NOTE | 2017-07-11 12:06 | EEG ---
DATE OF SERVICE: 07/11/2017 EEG NUMBER: [id number] OBJECTIVE: This is a 62-year-old female patient with history of mental status changes. EEG was requested to evaluate cerebral activity. METHODS: Twenty electrodes were applied according to the international 10-20 electrode placement system. EKG monitoring, hyperventilation, intermittent photic stimulation, monopolar and bipolar montages are routinely utilized. The record was obtained on a digital system with video monitoring. FINDINGS: 1. Background: The patient was recorded in the awake and drowsy states. No actual sleep state was recorded. The overall background amplitude is 10-20 microvolts. A posterior dominant rhythm of 6-8 Hz is observed. 2. Abnormalities: No specific epileptiform discharge or electrographic seizure is seen. No focal or diffuse slowing. 3. Activation: Hyperventilation was not performed because the patient had respiratory distress and failure. Intermittent photic stimulation was performed with photic driving. IMPRESSION: This EEG falls into the abnormal category of the study for the awake and drowsy states. No actual sleep state was recorded. The posterior dominant rhythm of 6-8 Hz is mildly slow for age. No focal, lateralizing, specific epileptiform discharge, or electrographic seizure is seen. SANJIV GRIMM MD DR: SHAKA/paul JOB#: [id number] / [id number] RADHA
--- NOTE | 2017-07-11 14:18 | PDOC ---
PROGRESS NOTES Assessment Assessment TIA symptoms. Speech difficulties. Dizziness Light headedness Weakness, LE. Metabolic encephalopathy. Right CCA stenosis. Hypoxia. Respiratory failure. COPD DM HTN HLD Hypothyroidism Obesity. No evidence of acute CVA this time. RECOMMENDATIONS/PLAN: Treat medical diseases. Please consult Vascular Surgery for right CCA stenosis. 02 OT/PT. Discussed with her family at bedside. HISTORY OF THE PRESENT ILLNESS: 62-y-old female patient with above medical diseases especially hypoxia on 02 on daily basis. She developed symptoms of mental status changes, dizziness, light headedness, weakness with LE > UE, speech difficulties on to come to the ER of [facility].. Her speech problems resolved after 6 hours and she was able to talk, but she still felt dizzy, light headedness, and weakness. PAST MEDICAL HISTORY: Anxiety, Bronchitis, COPD, Depression, Diabetes-Type II, High Cholesterol, Hypertension, Hyperthyroid, [place] Additional Past Medical Histor: EMPHYSEMA PAST SURGERY HISTORY: Angioplasty Left knee replacementx2, spinal fusion, right knee arthroplasty, CTR, ALLERGY: Reviewed. MEDICATIONS: Refer to [facility] FAMILY HISTORY: Non contributory. SOCIAL HISTORY: Lives at home. Denies smoking, drinking, and illicit drug use. REVIEW OF SYSTEMS: Constitutional: No malnutrition, weight loss, cachexia. Head: No traumatic brain or head injury. Skin: No edema, or rash. Ear: No infection. Eyes: No vision loss or color blindness. Nose: No bleeding or purulent discharges. Hearing: No hearing decrease. Neck: No injury. Breast: No history of cancer, masses,or discharges. Cardiac: HTN, HLD. Pulmonary: COPD. GI: No GI ulcer, GI bleeding. Urinary/genital: UTI. Endocrinologic: Diabetes Mellitus, hypothyroidism, obesity. Skeletomuscular: Generalized weakness. Neurological: see HP. Psychiatric: Denies drug use/abuse. Otherwise, not [id number] review of systems. PHYSICAL EXAMINATION: General appearance is in subacute distress. HEENT: Normocephalic and nontraumatic. Eyes, nose, ears, and throat are unremarkable. Neck is supple. No lymphadenopathy. No bruits are heard over the carotid artery. No crepitus. Cardiovascular: S1, S2, regular rate and rhythm. Pulmonary: breath sounds decreased bilaterally. Abdomen: Bowel sounds are positive. Abdomen is soft, nontender, and nondistended. Extremities: No rash, lesions, or edema. No restriction of range of motion NEUROLOGICAL EXAMINATION: Awake. Oriented to time, place and person. PERRL. EOMI. CN: no focal findings. Muscle tone: within normal. Muscle strength: 4+ DTR: 1 Plantar reflex: Flexor response bilaterally Gait: not examined in bed. Sensory exam: no abnormal findings. No obvious cerebellar signs elicited. F-T-N test fine. Mild hand tremors noted in hands. Objective Objective Vital Signs Date Time Temp Pulse Resp B/P (MAP) Pulse Ox O2 Delivery O2 Flow Rate FiO2 07/11/17 11:11 98 131/61 07/11/17 11:10 98 Nasal Cannula 3.0 07/11/17 11:00 98.7 20 98.7 Intake and Output 07/11/17 07:00 Intake Total 300 ml Output Total 200 ml Balance 100 ml Intake Oral 300 ml Output Urine Total 200 ml Vitals Signs Vitals VS - Last 72 Hours, by Label Date Time Temp Pulse Resp B/P (MAP) Pulse Ox O2 Delivery O2 Flow Rate FiO2 07/11/17 11:11 98 131/61 07/11/17 11:10 98 Nasal Cannula 3.0 07/11/17 11:10 98 131/61 07/11/17 11:09 98 131/61 07/11/17 11:00 98.7 66 20 135/69 (91) 93 Nasal Cannula 3.0 98.7 07/11/17 08:34 98.2 98 22 131/61 (84) 92 Nasal Cannula 3.0 98.2 07/11/17 08:00 Nasal Cannula 3.0 07/11/17 07:05 99 Nasal Cannula 3.0 07/11/17 03:00 97.3 63 18 112/62 (79) 94 Nasal Cannula 3.0 97.3 07/10/17 22:58 98.3 70 20 113/56 (75) 96 Nasal Cannula 3.0 98.3 07/10/17 21:23 100 3.0 07/10/17 20:05 Nasal Cannula 3.0 07/10/17 19:00 98.7 75 20 134/70 (91) 97 Nasal Cannula 3.0 98.7 07/10/17 16:44 Nasal Cannula 3.0 07/10/17 15:30 98.2 71 22 117/50 (72) 96 Nasal Cannula 3.0 98.2 07/10/17 15:30 98.2 71 22 117/50 (72) 96 Nasal Cannula 3.0 98.2 07/10/17 14:51 62 18 112/56 (74) 99 Nasal Cannula 3.0 07/10/17 14:29 60 18 116/62 (80) 100 Nasal Cannula 3.0 07/10/17 13:51 60 20 133/70 (91) 99 07/10/17 13:21 62 20 144/72 (96) 99 07/10/17 12:50 60 18 123/72 (89) 97 07/10/17 12:21 60 18 127/66 (86) 98 Nasal Cannula 3.0 07/10/17 12:08 98.2 63 18 143/71 (95) 98 Room Air 98.2 Laboratory Laboratory Laboratory Tests Test 07/10/17 21:39 07/11/17 04:20 07/11/17 08:20 07/11/17 10:40 Glucose (Fingerstick) 187 mg/dL (70-99) 140 mg/dL (70-99) 261 mg/dL (70-99) White Blood Count 7.5 x10^3/uL (4.0-11.0) Red Blood Count 3.80 x10^6/uL (3.50-5.40) Hemoglobin 11.0 g/dL (12.0-15.5) Hematocrit 34.0 % (36.0-47.0) Mean Corpuscular Volume 89 fL (79-100) Mean Corpuscular Hemoglobin 29 pg (25-35) Mean Corpuscular Hemoglobin Concent 33 g/dL (31-37) Red Cell Distribution Width 12.7 % (11.5-14.5) Platelet Count 240 x10^3/uL (140-400) Neutrophils (%) (Auto) 63 % (31-73) Lymphocytes (%) (Auto) 26 % (24-48) Monocytes (%) (Auto) 9 % (0-9) Eosinophils (%) (Auto) 1 % (0-3) Basophils (%) (Auto) 1 % (0-3) Neutrophils # (Auto) 4.7 x10^3uL (1.8-7.7) Lymphocytes # (Auto) 1.9 x10^3/uL (1.0-4.8) Monocytes # (Auto) 0.7 x10^3/uL (0.0-1.1) Eosinophils # (Auto) 0.1 x10^3/uL (0.0-0.7) Basophils # (Auto) 0.0 x10^3/uL (0.0-0.2) Sodium Level 141 mmol/L (136-145) Potassium Level 3.9 mmol/L (3.5-5.1) Chloride Level 101 mmol/L (98-107) Carbon Dioxide Level 34 mmol/L (21-32) Anion Gap 6 (6-14) Blood Urea Nitrogen 24 mg/dL (7-20) Creatinine 1.5 mg/dL (0.6-1.0) Estimated GFR (Cockcroft-Gault) 35.1 Glucose Level 159 mg/dL (70-99) Calcium Level 8.5 mg/dL (8.5-10.1) Triglycerides Level 149 mg/dL (0-150) Cholesterol Level 199 mg/dL (0-200) LDL Cholesterol, Calculated 135 mg/dL (0-100) VLDL Cholesterol, Calculated 30 mg/dL (0-40) Non-HDL Cholesterol Calculated 165 mg/dL (0-129) HDL Cholesterol 34 mg/dL (40-60) Cholesterol/HDL Ratio 5.9 Medication Medications Current Medications Acetaminophen (Tylenol) 650 mg PRN Q4HRS PRN PO FEVER Last administered on 07/11 11:08; Start 07/10/17 at 15:00; Stop 07/11/17 at 14:59 Albuterol Sulfate (Ventolin Neb Soln) 2.5 mg RTQID NEB Last administered on 07:11; Start 07/10/17 at 20:45 Albuterol/ Ipratropium (Duoneb) 3 ml RTQID NEB Last administered on 07/11/17 11:06; Start 07/11/17 at 12:00 Amlodipine Besylate (Norvasc) 5 mg DAILY PO Last administered on 07/11/17 11: 11; Start 07/11/17 at 12:00 Aspirin (Madan Aspirin) 325 mg DAILYWBKFT PO Last administered on 07/11/17 08: 57; Start 07/10/17 at 19:00 Aspirin (Ecotrin) 81 mg DAILY PO ; Start 07/11/17 at 12:00; Stop 07/11/17 at 12: 00; Status DC Atorvastatin Calcium (Lipitor) 20 mg QHS PO ; Start 07/11/17 at 21:00 Citalopram Hydrobromide (CeleXA) 40 mg DAILY PO Last administered on 07/11/17 11:09; Start 07/11/17 at 11:00 Enoxaparin Sodium (Lovenox 40mg Syringe) 40 mg Q24H SQ Last administered on 11:07; Start 07/11/17 at 12:00 Fenofibrate (Lofibra) 134 mg DAILY PO Last administered on 07/11/17 11:07; Start 07/11/17 at 11:00 Isosorbide Mononitrate (Imdur) 30 mg DAILY PO Last administered on 07/11/17 11 :10; Start 07/11/17 at 11:00 Levothyroxine Sodium (Synthroid) 88 mcg DAILY06 PO Last administered on 11:11; Start 07/11/17 at 11:00 Losartan Potassium (Cozaar) 100 mg DAILY PO ; Start 07/12/17 at 09:00 Metformin HCl (Glucophage) 1,000 mg BIDWMEALS PO Last administered on 11:10; Start 07/11/17 at 12:00 Methylprednisolone Sodium Succinate (SOLU-Medrol 40MG VIAL) 40 mg Q8HRS IV Last administered on 07/11/17 11:09; Start 07/11/17 at 11:00 Metoprolol Succinate (Toprol Xl) 50 mg DAILY PO Last administered on 07/11/17 11:09; Start 07/11/17 at 11:00 Morphine Sulfate 2 mg PRN Q2HR PRN IV PAIN; Start 07/10/17 at 15:00; Stop 07/10 at 20:11; Status DC Morphine Sulfate 2 mg PRN Q2HR PRN IV PAIN Last administered on 07/10/17 20:23 ; Start 07/10/17 at 20:15 Ondansetron HCl (Zofran) 4 mg PRN Q8HRS PRN IV NAUSEA/VOMITING; Start 07/10/17 at 15:00; Stop 07/11/17 at 14:59 Pantoprazole Sodium (Protonix) 40 mg DAILYAC PO Last administered on 07/11/17 11:07; Start 07/11/17 at 11:00 Prasugrel (Effient) 10 mg DAILYWBKFT PO Last administered on 07/11/17 11:09; Start 07/11/17 at 12:00 Spironolactone (Aldactone) 50 mg DAILY PO Last administered on 07/11/17 11:11 ; Start 07/11/17 at 11:00 Sucralfate (Carafate) 1 gm QIDACHS PO Last administered on 07/11/17 11:08; Start 07/11/17 at 11:30 Valacyclovir HCl (Valtrex) 500 mg BID PO Last administered on 07/11/17 11:11; Start 07/11/17 at 11:00 Comment Review of Relevant I have reviewed the following items haroldo (where applicable) has been applied. SANJIV GRIMM MD Jul 11, 2017 14:18
[2017-07-11 15:00] VITALS: BP 116/59
--- NOTE | 2017-07-11 15:44 | PDOC2 ---
CONSULT Date of Consult Date of Consult DATE: 07/11/17 TIME: 15:35 Reason for Consult Reason for Consult: Carotid stenosis Identification/Chief Complaint Chief Complaint Weakness, speech difficulties Source Source: Chart review, Patient History of Present Illness Reason for Visit: This is a pleasant 62 year old female with history of diabetes, hypertension, hyperlipidemia admitted with symptoms of mental status changes, dizziness, weakness and speech difficulties on 07/10/17. Most of her symptoms have resolved she still complains of some expressive aphasia. The patient is oxygen dependent. Past Medical History Cardiovascular: CAD, HTN, [place], Hyperlipidemia, Valve insufficiency, Pulmonary hypertension Pulmonary: COPD, Other CENTRAL NERVOUS SYSTEM: Carpal Tunnel Syndrome, Periperal neuropathy GI: GERD Heme/Onc: No pertinent hx Hepatobiliary: No pertinent hx Psych: Anxiety, Depression Musculoskeletal: low back pain, Osteoarthritis, Other Rheumatologic: No pertinent hx Infectious disease: Herpes simplex2 Renal/: No pertinent hx, UTI, Urinary Incontinence Endocrine: Diabetes, Hypothyroidism, Osteoporosis Past Surgical History Past Surgical History: Cholecystectomy, Total knee replacement, Tubal Ligation , Hysterectomy, Other Family History Family History: Diabetes, Hypertension, Other Social History Quit ALCOHOL: none Drugs: None Lives: Alone Domestic Violence: Neg Current Problem List Problem List Problems Medical Problems: (1) Altered mental status Status: Acute Current Medications Current Medications Current Medications Ondansetron HCl (Zofran) 4 mg PRN Q8HRS PRN IV NAUSEA/VOMITING; Start 07/10/17 at 15:00; Stop 07/11/17 at 14:59; Status DC Morphine Sulfate 2 mg PRN Q2HR PRN IV PAIN; Start 07/10/17 at 15:00; Stop 07/10 at 20:11; Status DC Acetaminophen (Tylenol) 650 mg PRN Q4HRS PRN PO FEVER Last administered on 07/11 11:08; Start 07/10/17 at 15:00; Stop 07/11/17 at 14:59; Status DC Aspirin (Madan Aspirin) 325 mg DAILYWBKFT PO Last administered on 07/11/17 08: 57; Start 07/10/17 at 19:00 Morphine Sulfate 2 mg PRN Q2HR PRN IV PAIN Last administered on 07/10/17 20:23 ; Start 07/10/17 at 20:15 Albuterol Sulfate (Ventolin Neb Soln) 2.5 mg RTQID NEB Last administered on 07:11; Start 07/10/17 at 20:45 Amlodipine Besylate (Norvasc) 5 mg DAILY PO Last administered on 07/11/17 11: 11; Start 07/11/17 at 12:00 Aspirin (Ecotrin) 81 mg DAILY PO ; Start 07/11/17 at 12:00; Stop 07/11/17 at 12: 00; Status DC Atorvastatin Calcium (Lipitor) 20 mg QHS PO ; Start 07/11/17 at 21:00 Albuterol/ Ipratropium (Duoneb) 3 ml RTQID NEB Last administered on 07/11/17 11:06; Start 07/11/17 at 12:00 Isosorbide Mononitrate (Imdur) 30 mg DAILY PO Last administered on 07/11/17 11 :10; Start 07/11/17 at 11:00 Levothyroxine Sodium (Synthroid) 88 mcg DAILY06 PO Last administered on 11:11; Start 07/11/17 at 11:00 Metformin HCl (Glucophage) 1,000 mg BIDWMEALS PO Last administered on 11:10; Start 07/11/17 at 12:00 Metoprolol Succinate (Toprol Xl) 50 mg DAILY PO Last administered on 07/11/17 11:09; Start 07/11/17 at 11:00 Prasugrel (Effient) 10 mg DAILYWBKFT PO Last administered on 07/11/17 11:09; Start 07/11/17 at 12:00 Sucralfate (Carafate) 1 gm QIDACHS PO Last administered on 07/11/17 11:08; Start 07/11/17 at 11:30 Valacyclovir HCl (Valtrex) 500 mg BID PO Last administered on 07/11/17 11:11; Start 07/11/17 at 11:00 Citalopram Hydrobromide (CeleXA) 40 mg DAILY PO Last administered on 07/11/17 11:09; Start 07/11/17 at 11:00 Pantoprazole Sodium (Protonix) 40 mg DAILYAC PO Last administered on 07/11/17 11:07; Start 07/11/17 at 11:00 Fenofibrate (Lofibra) 134 mg DAILY PO Last administered on 07/11/17 11:07; Start 07/11/17 at 11:00 Spironolactone (Aldactone) 50 mg DAILY PO Last administered on 07/11/17 11:11 ; Start 07/11/17 at 11:00 Losartan Potassium (Cozaar) 100 mg DAILY PO ; Start 07/12/17 at 09:00 Enoxaparin Sodium (Lovenox 40mg Syringe) 40 mg Q24H SQ Last administered on 11:07; Start 07/11/17 at 12:00 Methylprednisolone Sodium Succinate (SOLU-Medrol 40MG VIAL) 40 mg Q8HRS IV Last administered on 07/11/17 11:09; Start 07/11/17 at 11:00 Active Scripts Active Spironolactone 50 Mg Tablet 1 Tab PO DAILY Duoneb 0.5-3(2.5) Mg/3 Ml (Albuterol/Ipratropium) 3 Ml Ampul.neb 3 Ml NEB RTQID 30 Days Amlodipine Besylate 2.5 Mg Tablet 5 Mg PO DAILY 30 Days Carafate (Sucralfate) 1 Gm Tablet 1 Gm PO QIDACHS 30 Days Effient (Prasugrel Hcl) 10 Mg Tablet 10 Mg PO DAILYWBKFT Reported Citalopram Hbr (Citalopram Hydrobromide) 40 Mg Tablet 40 Mg PO DAILY Diovan (Valsartan) 160 Mg Tablet 160 Mg PO DAILY Valacyclovir (Valacyclovir Hcl) 500 Mg Tablet 500 Mg PO BID Atorvastatin Calcium 20 Mg Tablet 20 Mg PO DAILY Isosorbide Mononitrate Er (Isosorbide Mononitrate) 30 Mg Tab.er.24h 30 Mg PO DAILY Levothyroxine Sodium 88 Mcg Tablet 88 Mcg PO DAILY06 Nexium Capsule (Esomeprazole Magnesium) 40 Mg Capsule.dr 1 Cap PO DAILY Metoprolol Succinate ( Xl ) (Metoprolol Succinate) 25 Mg Tab.er.24h 2 Tab PO DAILY Aspir 81 (Aspirin) 81 Mg Tablet.dr 1 Tab PO DAILY Fenofibrate (Fenofibrate Nanocrystallized) 145 Mg Tablet 160 Mg PO DAILY Metformin Hcl 1,000 Mg Tablet 1,000 Mg PO BID Allergies Allergies: Coded Allergies: levofloxacin (Verified Allergy, Intermediate, Hives, 03/05/17) ROS Review of System GEN: Denies fever or weight loss HEENT: No blurred vision or sore throat CV: Denies chest pain RESP: No shortness of breath or cough GI: Denies any nausea, vomiting : No dysuria or hematuria M/S: per HPI NEURO: per HPI Physical Exam General: Alert, Oriented X3 Lungs: Clear to auscultation, Normal air movement Heart: Regular rate, Other (no carotid bruit) Abdomen: Normal bowel sounds, Soft Extremities: Normal pulses Neuro: Strength at 5/5 X4 ext, Other (expressive aphasia) Vitals VITALS Vital Signs Date Time Temp Pulse Resp B/P (MAP) Pulse Ox O2 Delivery O2 Flow Rate FiO2 07/11/17 11:11 98 131/61 07/11/17 11:10 98 Nasal Cannula 3.0 07/11/17 11:00 98.7 20 98.7 Labs Labs Laboratory Tests Test 07/10/17 12:40 07/10/17 12:55 07/10/17 21:39 07/11/17 04:20 White Blood Count 8.4 x10^3/uL (4.0-11.0) 7.5 x10^3/uL (4.0-11.0) Red Blood Count 3.87 x10^6/uL (3.50-5.40) 3.80 x10^6/uL (3.50-5.40) Hemoglobin 11.2 g/dL (12.0-15.5) 11.0 g/dL (12.0-15.5) Hematocrit 34.7 % (36.0-47.0) 34.0 % (36.0-47.0) Mean Corpuscular Volume 90 fL (79-100) 89 fL (79-100) Mean Corpuscular Hemoglobin 29 pg (25-35) 29 pg (25-35) Mean Corpuscular Hemoglobin Concent 32 g/dL (31-37) 33 g/dL (31-37) Red Cell Distribution Width 12.8 % (11.5-14.5) 12.7 % (11.5-14.5) Platelet Count 270 x10^3/uL (140-400) 240 x10^3/uL (140-400) Neutrophils (%) (Auto) 73 % (31-73) 63 % (31-73) Lymphocytes (%) (Auto) 19 % (24-48) 26 % (24-48) Monocytes (%) (Auto) 8 % (0-9) 9 % (0-9) Eosinophils (%) (Auto) 1 % (0-3) 1 % (0-3) Basophils (%) (Auto) 1 % (0-3) 1 % (0-3) Neutrophils # (Auto) 6.1 x10^3uL (1.8-7.7) 4.7 x10^3uL (1.8-7.7) Lymphocytes # (Auto) 1.6 x10^3/uL (1.0-4.8) 1.9 x10^3/uL (1.0-4.8) Monocytes # (Auto) 0.6 x10^3/uL (0.0-1.1) 0.7 x10^3/uL (0.0-1.1) Eosinophils # (Auto) 0.1 x10^3/uL (0.0-0.7) 0.1 x10^3/uL (0.0-0.7) Basophils # (Auto) 0.0 x10^3/uL (0.0-0.2) 0.0 x10^3/uL (0.0-0.2) Prothrombin Time 12.6 SEC (11.7-14.0) Prothromb Time International Ratio 1.0 (0.8-1.1) Activated Partial Thromboplast Time 32 SEC (24-38) Sodium Level 142 mmol/L (136-145) 141 mmol/L (136-145) Potassium Level 4.3 mmol/L (3.5-5.1) 3.9 mmol/L (3.5-5.1) Chloride Level 100 mmol/L (98-107) 101 mmol/L (98-107) Carbon Dioxide Level 36 mmol/L (21-32) 34 mmol/L (21-32) Anion Gap 6 (6-14) 6 (6-14) Blood Urea Nitrogen 21 mg/dL (7-20) 24 mg/dL (7-20) Creatinine 1.4 mg/dL (0.6-1.0) 1.5 mg/dL (0.6-1.0) Estimated GFR (Cockcroft-Gault) 38.0 35.1 BUN/Creatinine Ratio 15 (6-20) Glucose Level 136 mg/dL (70-99) 159 mg/dL (70-99) Calcium Level 8.9 mg/dL (8.5-10.1) 8.5 mg/dL (8.5-10.1) Total Bilirubin 0.4 mg/dL (0.2-1.0) Aspartate Amino Transf (AST/SGOT) 19 U/L (15-37) Alanine Aminotransferase (ALT/SGPT) 27 U/L (14-59) Alkaline Phosphatase 70 U/L (46-116) Creatine Kinase 36 U/L (26-192) Troponin I Quantitative < 0.017 ng/mL (0.000-0.055) NT-Hej-D-Type Natriuretic Peptide 193 pg/mL (0-124) Total Protein 7.4 g/dL (6.4-8.2) Albumin 3.5 g/dL (3.4-5.0) Albumin/Globulin Ratio 0.9 (1.0-1.7) Vitamin B12 Level 256 pg/mL (247-911) Thyroid Stimulating Hormone (TSH) 5.857 uIU/mL (0.358-3.74) Ethyl Alcohol Level < 10 mg/dL (0-10) Urine Collection Type Unknown Urine Color Yellow Urine Clarity Clear Urine pH 5.5 Urine Specific [place] 1.010 Urine Protein Negative mg/dL (NEG-TRACE) Urine Glucose (UA) Negative mg/dL (NEG) Urine Ketones (Stick) Negative mg/dL (NEG) Urine Blood Negative (NEG) Urine Nitrite Negative (NEG) Urine Bilirubin Negative (NEG) Urine Urobilinogen Dipstick 0.2 mg/dL (0.2 mg/dL) Urine Leukocyte Esterase Small (NEG) Urine RBC 1-2 /HPF (0-2) Urine WBC 1-4 /HPF (0-4) Urine Squamous Epithelial Cells Few /LPF Urine Bacteria 0 /HPF (0-FEW) Urine Opiates Screen Neg (NEG) Urine Methadone Screen Neg (NEG) Urine Barbiturates Neg (NEG) Urine Phencyclidine Screen Neg (NEG) Urine Amphetamine/Methamphetamine Neg (NEG) Urine Benzodiazepines Screen Neg (NEG) Urine Cocaine Screen Neg (NEG) Urine Cannabinoids Screen Neg (NEG) Urine Ethyl Alcohol N (NEG) Glucose (Fingerstick) 187 mg/dL (70-99) Triglycerides Level 149 mg/dL (0-150) Cholesterol Level 199 mg/dL (0-200) LDL Cholesterol, Calculated 135 mg/dL (0-100) VLDL Cholesterol, Calculated 30 mg/dL (0-40) Non-HDL Cholesterol Calculated 165 mg/dL (0-129) HDL Cholesterol 34 mg/dL (40-60) Cholesterol/HDL Ratio 5.9 Test 07/11/17 08:20 07/11/17 10:40 Glucose (Fingerstick) 140 mg/dL (70-99) 261 mg/dL (70-99) Laboratory Tests Test 07/10/17 21:39 07/11/17 04:20 07/11/17 08:20 07/11/17 10:40 Glucose (Fingerstick) 187 mg/dL (70-99) 140 mg/dL (70-99) 261 mg/dL (70-99) White Blood Count 7.5 x10^3/uL (4.0-11.0) Red Blood Count 3.80 x10^6/uL (3.50-5.40) Hemoglobin 11.0 g/dL (12.0-15.5) Hematocrit 34.0 % (36.0-47.0) Mean Corpuscular Volume 89 fL (79-100) Mean Corpuscular Hemoglobin 29 pg (25-35) Mean Corpuscular Hemoglobin Concent 33 g/dL (31-37) Red Cell Distribution Width 12.7 % (11.5-14.5) Platelet Count 240 x10^3/uL (140-400) Neutrophils (%) (Auto) 63 % (31-73) Lymphocytes (%) (Auto) 26 % (24-48) Monocytes (%) (Auto) 9 % (0-9) Eosinophils (%) (Auto) 1 % (0-3) Basophils (%) (Auto) 1 % (0-3) Neutrophils # (Auto) 4.7 x10^3uL (1.8-7.7) Lymphocytes # (Auto) 1.9 x10^3/uL (1.0-4.8) Monocytes # (Auto) 0.7 x10^3/uL (0.0-1.1) Eosinophils # (Auto) 0.1 x10^3/uL (0.0-0.7) Basophils # (Auto) 0.0 x10^3/uL (0.0-0.2) Sodium Level 141 mmol/L (136-145) Potassium Level 3.9 mmol/L (3.5-5.1) Chloride Level 101 mmol/L (98-107) Carbon Dioxide Level 34 mmol/L (21-32) Anion Gap 6 (6-14) Blood Urea Nitrogen 24 mg/dL (7-20) Creatinine 1.5 mg/dL (0.6-1.0) Estimated GFR (Cockcroft-Gault) 35.1 Glucose Level 159 mg/dL (70-99) Calcium Level 8.5 mg/dL (8.5-10.1) Triglycerides Level 149 mg/dL (0-150) Cholesterol Level 199 mg/dL (0-200) LDL Cholesterol, Calculated 135 mg/dL (0-100) VLDL Cholesterol, Calculated 30 mg/dL (0-40) Non-HDL Cholesterol Calculated 165 mg/dL (0-129) HDL Cholesterol 34 mg/dL (40-60) Cholesterol/HDL Ratio 5.9 Assessment/Plan Assessment/Plan Assessment: Bilateral carotid stenosis less than 50% per Ultrasound Recommendations: Continued Antiplatelet therapy Hypertensive management Lipid management Continued cardiac evaluation F/U Carotid US in [address] Maurer will see patient and review this plan and provide any additional recommendations as needed Thank you for the opportunity to participate in the care of this patient. CHACHA TRIPP APRN Jul 11, 2017 15:44 CAROLYN MAURER II, MD Jul 11, 2017 20:24
[2017-07-11] MEDS ORDERED: DEXTROSE 50% 25 GM / 50ML DISP.SYRIN. IV PRN (18:00)
[2017-07-11] MEDS: INSULIN ASPART 300 UNITS/3 ML INSULN.PEN SQ SCH (18:27)
[2017-07-11 19:15] VITALS: BP 108/69
[2017-07-11] MEDS: ATORVASTATIN CALCIUM 20 MG TABLET PO SCH (20:32)
[2017-07-11 23:15] VITALS: BP 136/68
[2017-07-12] MEDS ORDERED: ALBUTEROL SULFATE 2.5 MG/3 ML NEBU. NEB PRN (02:45)
[2017-07-12 03:15] VITALS: BP 98/77
[2017-07-12] MEDS: LEVOTHYROXINE 88 MCG TABLET PO SCH (05:36)
[2017-07-12] MEDS: methylPREDNISolone SOD SUCC PF 40 MG/ML VIAL. IV SCH ×3 (05:36→21:49)
[2017-07-12 07:00] VITALS: BP 158/69
[2017-07-12] MEDS ORDERED: CONTRAST GIVEN MC PRN (07:15)
[2017-07-12] MEDS ORDERED: IOHEXOL 300 MG/ML 75 ML VIAL IV ONE (07:30)
--- NOTE | 2017-07-12 07:36 | PDOC ---
SURGICAL PROGRESS NOTE Vital Signs Vital Signs Date Time Temp Pulse Resp B/P (MAP) Pulse Ox O2 Delivery O2 Flow Rate FiO2 07/12/17 03:15 98.3 86 22 98/77 (84) 97 Nasal Cannula 3.0 98.3 I&O Intake and Output 07/12/17 07:00 Intake Total 2700 ml Output Total 750 ml Balance 1950 ml Intake Oral 2700 ml Output Urine Total 750 ml # Voids 2 Labs Laboratory Tests Test 07/10/17 12:40 07/10/17 12:55 07/10/17 21:39 07/11/17 04:20 White Blood Count 8.4 x10^3/uL (4.0-11.0) 7.5 x10^3/uL (4.0-11.0) Red Blood Count 3.87 x10^6/uL (3.50-5.40) 3.80 x10^6/uL (3.50-5.40) Hemoglobin 11.2 g/dL (12.0-15.5) 11.0 g/dL (12.0-15.5) Hematocrit 34.7 % (36.0-47.0) 34.0 % (36.0-47.0) Mean Corpuscular Volume 90 fL (79-100) 89 fL (79-100) Mean Corpuscular Hemoglobin 29 pg (25-35) 29 pg (25-35) Mean Corpuscular Hemoglobin Concent 32 g/dL (31-37) 33 g/dL (31-37) Red Cell Distribution Width 12.8 % (11.5-14.5) 12.7 % (11.5-14.5) Platelet Count 270 x10^3/uL (140-400) 240 x10^3/uL (140-400) Neutrophils (%) (Auto) 73 % (31-73) 63 % (31-73) Lymphocytes (%) (Auto) 19 % (24-48) 26 % (24-48) Monocytes (%) (Auto) 8 % (0-9) 9 % (0-9) Eosinophils (%) (Auto) 1 % (0-3) 1 % (0-3) Basophils (%) (Auto) 1 % (0-3) 1 % (0-3) Neutrophils # (Auto) 6.1 x10^3uL (1.8-7.7) 4.7 x10^3uL (1.8-7.7) Lymphocytes # (Auto) 1.6 x10^3/uL (1.0-4.8) 1.9 x10^3/uL (1.0-4.8) Monocytes # (Auto) 0.6 x10^3/uL (0.0-1.1) 0.7 x10^3/uL (0.0-1.1) Eosinophils # (Auto) 0.1 x10^3/uL (0.0-0.7) 0.1 x10^3/uL (0.0-0.7) Basophils # (Auto) 0.0 x10^3/uL (0.0-0.2) 0.0 x10^3/uL (0.0-0.2) Prothrombin Time 12.6 SEC (11.7-14.0) Prothromb Time International Ratio 1.0 (0.8-1.1) Activated Partial Thromboplast Time 32 SEC (24-38) Sodium Level 142 mmol/L (136-145) 141 mmol/L (136-145) Potassium Level 4.3 mmol/L (3.5-5.1) 3.9 mmol/L (3.5-5.1) Chloride Level 100 mmol/L (98-107) 101 mmol/L (98-107) Carbon Dioxide Level 36 mmol/L (21-32) 34 mmol/L (21-32) Anion Gap 6 (6-14) 6 (6-14) Blood Urea Nitrogen 21 mg/dL (7-20) 24 mg/dL (7-20) Creatinine 1.4 mg/dL (0.6-1.0) 1.5 mg/dL (0.6-1.0) Estimated GFR (Cockcroft-Gault) 38.0 35.1 BUN/Creatinine Ratio 15 (6-20) Glucose Level 136 mg/dL (70-99) 159 mg/dL (70-99) Calcium Level 8.9 mg/dL (8.5-10.1) 8.5 mg/dL (8.5-10.1) Total Bilirubin 0.4 mg/dL (0.2-1.0) Aspartate Amino Transf (AST/SGOT) 19 U/L (15-37) Alanine Aminotransferase (ALT/SGPT) 27 U/L (14-59) Alkaline Phosphatase 70 U/L (46-116) Creatine Kinase 36 U/L (26-192) Troponin I Quantitative < 0.017 ng/mL (0.000-0.055) HH-Cbt-R-Type Natriuretic Peptide 193 pg/mL (0-124) Total Protein 7.4 g/dL (6.4-8.2) Albumin 3.5 g/dL (3.4-5.0) Albumin/Globulin Ratio 0.9 (1.0-1.7) Vitamin B12 Level 256 pg/mL (247-911) Thyroid Stimulating Hormone (TSH) 5.857 uIU/mL (0.358-3.74) Ethyl Alcohol Level < 10 mg/dL (0-10) Urine Collection Type Unknown Urine Color Yellow Urine Clarity Clear Urine pH 5.5 Urine Specific [place] 1.010 Urine Protein Negative mg/dL (NEG-TRACE) Urine Glucose (UA) Negative mg/dL (NEG) Urine Ketones (Stick) Negative mg/dL (NEG) Urine Blood Negative (NEG) Urine Nitrite Negative (NEG) Urine Bilirubin Negative (NEG) Urine Urobilinogen Dipstick 0.2 mg/dL (0.2 mg/dL) Urine Leukocyte Esterase Small (NEG) Urine RBC 1-2 /HPF (0-2) Urine WBC 1-4 /HPF (0-4) Urine Squamous Epithelial Cells Few /LPF Urine Bacteria 0 /HPF (0-FEW) Urine Opiates Screen Neg (NEG) Urine Methadone Screen Neg (NEG) Urine Barbiturates Neg (NEG) Urine Phencyclidine Screen Neg (NEG) Urine Amphetamine/Methamphetamine Neg (NEG) Urine Benzodiazepines Screen Neg (NEG) Urine Cocaine Screen Neg (NEG) Urine Cannabinoids Screen Neg (NEG) Urine Ethyl Alcohol N (NEG) Glucose (Fingerstick) 187 mg/dL (70-99) Triglycerides Level 149 mg/dL (0-150) Cholesterol Level 199 mg/dL (0-200) LDL Cholesterol, Calculated 135 mg/dL (0-100) VLDL Cholesterol, Calculated 30 mg/dL (0-40) Non-HDL Cholesterol Calculated 165 mg/dL (0-129) HDL Cholesterol 34 mg/dL (40-60) Cholesterol/HDL Ratio 5.9 Test 07/11/17 08:20 07/11/17 10:40 07/11/17 17:22 07/11/17 21:24 Glucose (Fingerstick) 140 mg/dL (70-99) 261 mg/dL (70-99) 276 mg/dL (70-99) 239 mg/dL (70-99) Laboratory Tests Test 07/11/17 08:20 07/11/17 10:40 07/11/17 17:22 07/11/17 21:24 Glucose (Fingerstick) 140 mg/dL (70-99) 261 mg/dL (70-99) 276 mg/dL (70-99) 239 mg/dL (70-99) Problem List Problems Medical Problems: (1) Altered mental status Status: Acute Assessment/Plan Imp: TIA. Carotid duplex scan suggests proximal disease, either very proximal common carotid or innominate artery. She is back to baseline from a neuro standpoint Plan: 1. CTA head and neck today. Cr 1.5. Problems: CAROLYN IGLESIAS II, MD Jul 12, 2017 07:36
[2017-07-12] MEDS: IPRATRPIUM/ALBUTEROL 0.5/2.5MG 3 ML NEBU. NEB SCH ×4 (07:42→20:17)
[2017-07-12] MEDS: ALBUTEROL SULFATE 2.5 MG/3 ML NEBU. NEB SCH ×4 (08:00→20:00)
--- NOTE | 2017-07-12 09:21 | RAD ---
CT angiography head and neck 07/12/2017 at 0823 hours Indication: Right carotid artery stenosis. Leg weakness and memory loss. Comparison: CT head 07/10/2017, brain MRI 07/10/2017, carotid Doppler 07/10/2017 Technique: Multiple axial CT angiography images of the head and neck were obtained after the administration of 55 mL Omnipaque 300 intravenously. Coronal and sagittal reformats are provided. Maximum intensity projection images as well as 3-D reconstructions are available. Findings: Vascular findings: Three-vessel aortic arch is present. There is scattered atherosclerotic calcification involving the thoracic aorta. Thoracic aorta is normal in caliber as visualized. There is atherosclerotic obscuration of the origin of the brachiocephalic vessels with no significant stenosis. There is mild calcified and noncalcified atherosclerotic plaque involving the mid to distal right common carotid artery with luminal narrowing to approximately 4.7 mm with normal distal lumen measuring 7 mm (less than 50% stenosis). Mild atherosclerotic calcification is identified at the right carotid bifurcation. No significant stenosis of the proximal right internal carotid artery. There is suggestion of high-grade stenosis of the origin of the external carotid artery secondary to atherosclerotic disease. There is calcified and noncalcified atheromatous plaque of the mid left common carotid artery with luminal narrowing to approximately 4 mm with distal normal lumen measuring 6.5 mm (less than 50% stenosis). There is atherosclerotic ossification at the left carotid bifurcation without significant stenosis of the left proximal internal carotid artery and external carotid artery. Right vertebral artery is dominant. Left vertebral artery is diminutive in caliber with mild narrowing involving the intracranial segment likely secondary to atherosclerosis. Mild narrowing of the left cavernous segment internal carotid artery secondary to calcified and noncalcified atheromatous plaque. There is no significant narrowing of the distal right intracranial internal carotid artery. There is mild irregularity of the right middle cerebral artery, likely secondary to atherosclerotic disease. Anterior cerebral arteries are normal in course and caliber. There is moderate irregularity of the basilar artery, likely secondary to atherosclerotic disease. Basilar artery is diminutive in caliber. Left posterior cerebral artery is supplied by the left posterior communicating artery. A right P1 segment is present with additional flow arising from the posterior communicating artery. No aneurysm, vascular malformation or high-grade stenosis/large vessel occlusion. Nonvascular findings: Ventricles, sulci and basal cisterns are within normal limits. No mass, mass effect or midline shift. No suspicious enhancing lesion. Paranasal sinuses are well aerated. Visualized neck soft tissues are normal in appearance. Thyroid gland is normal. Lung apices demonstrate mild centrilobular emphysema. No suspicious pulmonary nodules. No pulmonary infiltrates. Impression: 1. Mild atherosclerotic calcification involving the right common carotid artery and right carotid bifurcation without significant carotid stenosis. However, there appears to be focal high-grade stenosis at the origin of the right external carotid artery with patent distal vasculature. 2. Mild atherosclerotic calcification involving the left common carotid artery and carotid bifurcation without significant stenosis of the origin of the left internal carotid artery and external carotid artery. 3. Mild to moderate multifocal irregularity involving the cranial vasculature without high-grade stenosis or large vessel occlusion. Findings are likely on the basis of atherosclerotic disease. Findings are most prominent in the basilar artery. 4. No aneurysm, vascular malformation or high-grade stenosis of the intracranial vasculature.
[2017-07-12] MEDS: ASPIRIN 325 MG TABLET PO SCH (09:43)
[2017-07-12] MEDS: CITALOPRAM 20 MG TABLET. PO SCH (09:43)
[2017-07-12] MEDS: valACYclovir 500 MG TABLET. PO SCH ×2 (09:44→21:49)
[2017-07-12] MEDS: METOPROLOL SUCC 24HR ER 50 MG TAB.ER.24H. PO SCH (09:44)
[2017-07-12] MEDS: PANTOPRAZOLE 40 MG TABLET.DR. PO SCH (09:44)
[2017-07-12] MEDS: SPIRONOLACTONE 25 MG TABLET PO SCH (09:44)
[2017-07-12] MEDS: ISOSORBIDE MONONITRATE ER 30 MG TAB.ER.24H PO SCH (09:45)
[2017-07-12] MEDS: PRASUGREL 10 MG TABLET. PO SCH (09:45)
[2017-07-12] MEDS: SUCRALFATE 1 GM TABLET. PO SCH ×5 (09:45→21:49)
[2017-07-12] MEDS: amLODIPine BESYLATE 5 MG TABLET PO SCH (09:45)
[2017-07-12] MEDS: FENOFIBRATE,MICRONIZED 134 MG CAPSULE PO SCH (09:45)
[2017-07-12] MEDS: INSULIN ASPART 300 UNITS/3 ML INSULN.PEN SQ SCH ×3 (09:56→18:14)
[2017-07-12] MEDS: LOSARTAN POTASSIUM 50 MG TABLET. PO SCH (09:59)
[2017-07-12 11:00] VITALS: BP 152/53
[2017-07-12] MEDS: ENOXAPARIN 40 MG/0.4 ML SYRINGE. SQ SCH (12:09)
--- NOTE | 2017-07-12 13:46 | PDOC ---
PROGRESS NOTES Assessment Assessment TIA symptoms. Speech difficulties. Dizziness Light headedness Weakness, LE. Metabolic encephalopathy. Right CCA stenosis. Hypoxia. Respiratory failure. COPD DM HTN HLD Hypothyroidism Obesity. No evidence of acute CVA this time. RECOMMENDATIONS/PLAN: Treat medical diseases. Consult Vascular Surgery for right CCA stenosis and CTA performed. OT/PT. Discussed with her family at bedside before. HISTORY OF THE PRESENT ILLNESS: 62-y-old female patient with above medical diseases especially hypoxia on 02 on daily basis. She developed symptoms of mental status changes, dizziness, light headedness, weakness with LE > UE, speech difficulties on to come to the ER of [facility].. Her speech problems resolved after 6 hours and she was able to talk, but she still felt dizzy, light headedness, and weakness. PAST MEDICAL HISTORY: Anxiety, Bronchitis, COPD, Depression, Diabetes-Type II, High Cholesterol, Hypertension, Hyperthyroid, [place] Additional Past Medical Histor: EMPHYSEMA PAST SURGERY HISTORY: Angioplasty Left knee replacementx2, spinal fusion, right knee arthroplasty, CTR, ALLERGY: Reviewed. MEDICATIONS: Refer to [facility] FAMILY HISTORY: Non contributory. SOCIAL HISTORY: Lives at home. Denies smoking, drinking, and illicit drug use. REVIEW OF SYSTEMS: Constitutional: No malnutrition, weight loss, cachexia. Head: No traumatic brain or head injury. Skin: No edema, or rash. Ear: No infection. Eyes: No vision loss or color blindness. Nose: No bleeding or purulent discharges. Hearing: No hearing decrease. Neck: No injury. Breast: No history of cancer, masses,or discharges. Cardiac: HTN, HLD. Pulmonary: COPD. GI: No GI ulcer, GI bleeding. Urinary/genital: UTI. Endocrinologic: Diabetes Mellitus, hypothyroidism, obesity. Skeletomuscular: Generalized weakness. Neurological: see HP. Psychiatric: Denies drug use/abuse. Otherwise, not [id number] review of systems. PHYSICAL EXAMINATION: General appearance is in subacute distress. HEENT: Normocephalic and nontraumatic. Eyes, nose, ears, and throat are unremarkable. Neck is supple. No lymphadenopathy. No bruits are heard over the carotid artery. No crepitus. Cardiovascular: S1, S2, regular rate and rhythm. Pulmonary: breath sounds decreased bilaterally. Abdomen: Bowel sounds are positive. Abdomen is soft, nontender, and nondistended. Extremities: No rash, lesions, or edema. No restriction of range of motion NEUROLOGICAL EXAMINATION: Awake. Oriented to time, place and person. PERRL. EOMI. CN: no focal findings. Muscle tone: within normal. Muscle strength: 4+ DTR: 1 Plantar reflex: Flexor response bilaterally Gait: not examined in bed. Sensory exam: no abnormal findings. No obvious cerebellar signs elicited. F-T-N test fine. Mild hand tremors noted in hands. Objective Objective Vital Signs Date Time Temp Pulse Resp B/P (MAP) Pulse Ox O2 Delivery O2 Flow Rate FiO2 07/12/17 11:27 Nasal Cannula 3.0 07/12/17 11:00 98.4 90 21 152/53 (86) 96 98.4 Intake and Output 07/12/17 07:00 Intake Total 2700 ml Output Total 750 ml Balance 1950 ml Intake Oral 2700 ml Output Urine Total 750 ml # Voids 2 Vitals Signs Vitals VS - Last 72 Hours, by Label Date Time Temp Pulse Resp B/P (MAP) Pulse Ox O2 Delivery O2 Flow Rate FiO2 07/12/17 11:27 Nasal Cannula 3.0 07/12/17 11:00 98.4 90 21 152/53 (86) 96 Nasal Cannula 3.0 98.4 07/12/17 09:59 79 158/69 07/12/17 09:45 79 158/69 07/12/17 09:45 79 158/69 07/12/17 09:44 79 158/69 07/12/17 08:00 Nasal Cannula 3.0 07/12/17 07:44 96 Nasal Cannula 3.0 07/12/17 07:00 98.1 79 20 158/69 (98) 96 Nasal Cannula 3.0 98.1 07/12/17 03:15 98.3 86 22 98/77 (84) 97 Nasal Cannula 3.0 98.3 07/12/17 03:03 97 Nasal Cannula 3.0 07/11/17 23:15 98.3 77 20 136/68 (90) 97 Nasal Cannula 3.0 98.3 07/11/17 20:05 Nasal Cannula 3.0 07/11/17 19:25 98 Nasal Cannula 3.0 07/11/17 19:15 98.1 80 20 108/69 (82) 96 Nasal Cannula 3.0 98.1 07/11/17 16:44 Nasal Cannula 3.0 07/11/17 15:00 98.4 76 22 116/59 (78) 93 Nasal Cannula 3.0 98.4 07/11/17 11:11 98 131/61 07/11/17 11:10 98 Nasal Cannula 3.0 07/11/17 11:10 98 131/61 07/11/17 11:09 98 131/61 07/11/17 11:00 98.7 66 20 135/69 (91) 93 Nasal Cannula 3.0 98.7 07/11/17 08:34 98.2 98 22 131/61 (84) 92 Nasal Cannula 3.0 98.2 07/11/17 08:00 Nasal Cannula 3.0 07/11/17 07:05 99 Nasal Cannula 3.0 Laboratory Laboratory Laboratory Tests Test 07/11/17 17:22 07/11/17 21:24 07/12/17 07:32 07/12/17 11:22 Glucose (Fingerstick) 276 mg/dL (70-99) 239 mg/dL (70-99) 273 mg/dL (70-99) 304 mg/dL (70-99) Microbiology 07/10/17 Urine Culture - Final, Complete 07/10/17 Urine Culture Result 1 (LEANN) - Final, Complete Medication Medications Current Medications Albuterol Sulfate (Ventolin Neb Soln) 2.5 mg PRN Q4HRS PRN NEB SHORTNESS OF BREATH Last administered on 07/12/17 03:01; Start 07/12/17 at 02:45 Atorvastatin Calcium (Lipitor) 20 mg QHS PO Last administered on 07/11/17 20: 32; Start 07/11/17 at 21:00 Dextrose (Dextrose 50%-Water Syringe) 12.5 gm PRN Q15MIN PRN IV SEE COMMENTS; Start 07/11/17 at 18:00 Info (Do NOT chart on this entry -- for MONITORING) 1 each PRN DAILY PRN MC SEE COMMENTS; Start 07/12/17 at 07:15; Stop 07/14/17 at 07:14 Insulin Aspart (NovoLOG) 0-7 UNITS TIDWMEALS SQ Last administered on 07/12/17t 12:11; Start 07/11/17 at 18:30 Iohexol (Omnipaque 300 Mg/ml) 55 ml 1X ONCE IV Last administered on 07/12/17 08:23; Start 07/12/17 at 07:30; Stop 07/12/17 at 07:31; Status DC Lorazepam (Ativan) 0.5 mg PRN Q4HRS PRN IV ANXIETY / AGITATION Last administered on 07/12/17 02:53; Start 07/12/17 at 02:45 Losartan Potassium (Cozaar) 100 mg DAILY PO Last administered on 07/12/17 09: 59; Start 07/12/17 at 09:00 Metformin HCl (Glucophage) 1,000 mg BIDWMEALS PO ; Start 07/14/17 at 12:00 Comment Review of Relevant I have reviewed the following items haroldo (where applicable) has been applied. SANJIV GRIMM MD Jul 12, 2017 13:46
[2017-07-12 15:00] VITALS: BP 130/70
--- NOTE | 2017-07-12 16:27 | CARD ---
APPROVED REPORT EXAM: Two-dimensional and M-mode echocardiogram with Doppler and color Doppler. Other Information Quality : GoodHR: 92bpm Rhythm : NSR INDICATION CVA/TIA Echo Enhancing Agent Indication: Rule Out Septal Defect Agent/Amount Used: Agitated Saline 8mL ATRIA Limited exam to rule out septal defect only. The interatrial septum is intact with no evidence for an atrial septal defect or patent foramen ovale as noted on 2-D or Doppler imaging. Injection of bubble s documented no interatrial shunt. <Conclusion> Limited exam to rule out septal defect only. The interatrial septum is intact with no evidence for an atrial septal defect or patent foramen ovale as noted on 2-D or Doppler imaging. Injection of bubbles documented no interatrial shunt.
--- NOTE | 2017-07-12 17:44 | PDOC ---
SUBJECTIVE Subjective no further neuro complaints, feels better OBJECTIVE Vital Signs Vital Signs Date Time Temp Pulse Resp B/P (MAP) Pulse Ox O2 Delivery O2 Flow Rate FiO2 07/12/17 16:33 96 Nasal Cannula 3.0 07/12/17 15:00 98.1 81 20 130/70 (90) 96 Nasal Cannula 3.0 98.1 07/12/17 11:27 Nasal Cannula 3.0 07/12/17 11:00 98.4 90 21 152/53 (86) 96 Nasal Cannula 3.0 98.4 07/12/17 09:59 79 158/69 07/12/17 09:45 79 158/69 07/12/17 09:45 79 158/69 07/12/17 09:44 79 158/69 07/12/17 08:00 Nasal Cannula 3.0 07/12/17 07:44 96 Nasal Cannula 3.0 07/12/17 07:00 98.1 79 20 158/69 (98) 96 Nasal Cannula 3.0 98.1 07/12/17 03:15 98.3 86 22 98/77 (84) 97 Nasal Cannula 3.0 98.3 07/12/17 03:03 97 Nasal Cannula 3.0 07/11/17 23:15 98.3 77 20 136/68 (90) 97 Nasal Cannula 3.0 98.3 07/11/17 20:05 Nasal Cannula 3.0 07/11/17 19:25 98 Nasal Cannula 3.0 07/11/17 19:15 98.1 80 20 108/69 (82) 96 Nasal Cannula 3.0 98.1 I & O Intake and Output 07/12/17 07:00 Intake Total 2700 ml Output Total 750 ml Balance 1950 ml Intake Oral 2700 ml Output Urine Total 750 ml # Voids 2 PHYSICAL EXAM Physical Exam lungs with better air movement heart RRR abd soft ext no edema ASSESSMENT/PLAN Assessment/Plan await arteriogram, continue plans Problems: COMMENT Lab Laboratory Tests Test 07/11/17 21:24 07/12/17 07:32 07/12/17 11:22 07/12/17 16:56 Glucose (Fingerstick) 239 mg/dL (70-99) 273 mg/dL (70-99) 304 mg/dL (70-99) 318 mg/dL (70-99) AURA TEJEDA MD Jul 12, 2017 17:44
[2017-07-12 19:15] VITALS: BP 131/72
[2017-07-12] MEDS: ATORVASTATIN CALCIUM 20 MG TABLET PO SCH (21:49)
[2017-07-12 23:15] VITALS: BP 143/69
[2017-07-13 03:15] VITALS: BP 140/68
[2017-07-13] MEDS: LEVOTHYROXINE 88 MCG TABLET PO SCH (06:31)
[2017-07-13] MEDS: methylPREDNISolone SOD SUCC PF 40 MG/ML VIAL. IV SCH ×3 (06:32→22:17)
[2017-07-13 07:00] VITALS: BP 141/67
[2017-07-13] MEDS: ALBUTEROL SULFATE 2.5 MG/3 ML NEBU. NEB SCH ×4 (08:00→20:00)
[2017-07-13] MEDS: PRASUGREL 10 MG TABLET. PO SCH (08:27)
[2017-07-13] MEDS: ISOSORBIDE MONONITRATE ER 30 MG TAB.ER.24H PO SCH (08:28)
[2017-07-13] MEDS: FENOFIBRATE,MICRONIZED 134 MG CAPSULE PO SCH (08:29)
[2017-07-13] MEDS: ASPIRIN 325 MG TABLET PO SCH (08:29)
[2017-07-13] MEDS: amLODIPine BESYLATE 5 MG TABLET PO SCH (08:29)
[2017-07-13] MEDS: LOSARTAN POTASSIUM 50 MG TABLET. PO SCH (08:29)
[2017-07-13] MEDS: METOPROLOL SUCC 24HR ER 50 MG TAB.ER.24H. PO SCH (08:30)
[2017-07-13] MEDS: valACYclovir 500 MG TABLET. PO SCH ×2 (08:30→22:17)
[2017-07-13] MEDS: SUCRALFATE 1 GM TABLET. PO SCH ×4 (08:30→20:30)
[2017-07-13] MEDS: SPIRONOLACTONE 25 MG TABLET PO SCH (08:31)
[2017-07-13] MEDS: CITALOPRAM 20 MG TABLET. PO SCH (08:31)
[2017-07-13] MEDS: PANTOPRAZOLE 40 MG TABLET.DR. PO SCH (08:31)
[2017-07-13] MEDS: INSULIN ASPART 300 UNITS/3 ML INSULN.PEN SQ SCH ×3 (08:37→17:40)
[2017-07-13] MEDS: IPRATRPIUM/ALBUTEROL 0.5/2.5MG 3 ML NEBU. NEB SCH ×4 (08:42→20:39)
--- NOTE | 2017-07-13 09:06 | PDOC ---
SURGICAL PROGRESS NOTE Vital Signs Vital Signs Date Time Temp Pulse Resp B/P (MAP) Pulse Ox O2 Delivery O2 Flow Rate FiO2 07/13/17 08:44 98 Nasal Cannula 3.0 07/13/17 08:30 80 141/67 07/13/17 07:00 98.0 18 98.0 I&O Intake and Output 07/13/17 06:59 Intake Total 2450 ml Output Total 850 ml Balance 1600 ml Intake Oral 2450 ml Output Urine Total 850 ml # Voids 4 # Bowel Movements 1 Labs Laboratory Tests Test 07/11/17 10:40 07/11/17 17:22 07/11/17 21:24 07/12/17 07:32 Glucose (Fingerstick) 261 mg/dL (70-99) 276 mg/dL (70-99) 239 mg/dL (70-99) 273 mg/dL (70-99) Test 07/12/17 11:22 07/12/17 16:56 07/12/17 21:29 07/13/17 07:24 Glucose (Fingerstick) 304 mg/dL (70-99) 318 mg/dL (70-99) 277 mg/dL (70-99) 282 mg/dL (70-99) Laboratory Tests Test 07/12/17 11:22 07/12/17 16:56 07/12/17 21:29 07/13/17 07:24 Glucose (Fingerstick) 304 mg/dL (70-99) 318 mg/dL (70-99) 277 mg/dL (70-99) 282 mg/dL (70-99) I have reviewed the following I have reviewed the CTA of the arch and brachiocephalic branches. There is no significant stenosis of the innominate or proxima carotid arteries as suggested by slow velocities in the proximal right CCA. Problem List Problems Medical Problems: (1) Altered mental status Status: Acute Assessment/Plan Imp: 1. tia like symptoms, resolved. Unclear etiology. No evidence of siginificant brachiocephalic or carotid artery occlusive disease. Rec: 1. medical management with antiplatelet agents. 2. f/u carotid duplex scan in one year. 3. complete neurologic evaluation. 4. Will sign off. Problems: CAROLYN IGLESIAS II, MD Jul 13, 2017 09:06
[2017-07-13 11:02] VITALS: BP 129/64
[2017-07-13] MEDS: ENOXAPARIN 40 MG/0.4 ML SYRINGE. SQ SCH (11:31)
[2017-07-13] MEDS ORDERED: PHENOL ORAL SPRAY 177ML BOTTLE. PO PRN (15:00)
[2017-07-13 15:07] VITALS: BP 123/47
--- NOTE | 2017-07-13 15:07 | PDOC ---
SUBJECTIVE Subjective feels better, breathing better OBJECTIVE Vital Signs Vital Signs Date Time Temp Pulse Resp B/P (MAP) Pulse Ox O2 Delivery O2 Flow Rate FiO2 07/13/17 12:06 Nasal Cannula 3.0 07/13/17 11:02 98.4 80 17 129/64 (85) 96 Nasal Cannula 3.0 98.4 07/13/17 08:44 98 Nasal Cannula 3.0 07/13/17 08:30 80 141/67 07/13/17 08:29 80 141/67 07/13/17 08:29 80 141/67 07/13/17 08:28 80 141/67 07/13/17 08:00 Nasal Cannula 3.0 07/13/17 07:00 98.0 80 18 141/67 (91) 96 Nasal Cannula 3.0 98.0 07/13/17 03:15 98.0 86 18 140/68 (92) 96 Nasal Cannula 3.0 98.0 07/12/17 23:15 97.9 85 20 143/69 (93) 98 Nasal Cannula 3.0 97.9 07/12/17 20:17 97 Nasal Cannula 3.0 07/12/17 20:00 Nasal Cannula 3.0 07/12/17 19:15 98.0 87 20 131/72 (91) 96 Nasal Cannula 3.0 98.0 07/12/17 16:33 96 Nasal Cannula 3.0 I & O Intake and Output 07/13/17 07:00 Intake Total 2450 ml Output Total 850 ml Balance 1600 ml Intake Oral 2450 ml Output Urine Total 850 ml # Voids 4 # Bowel Movements 1 PHYSICAL EXAM Physical Exam lungs better , otherwise no change ASSESSMENT/PLAN Assessment/Plan 1. TIA like symptoms , 2. Carotid vascular disease does not require surgery , continue ASA and Effient 3. change mental status , cause not clear 4.COPD exacerbation and hypoxia continue breathing Tx and steroids 5.CAD plan to discharge home in AM Problems: COMMENT Lab Laboratory Tests Test 07/12/17 16:56 07/12/17 21:29 07/13/17 07:24 07/13/17 11:22 Glucose (Fingerstick) 318 mg/dL (70-99) 277 mg/dL (70-99) 282 mg/dL (70-99) 331 mg/dL (70-99) AURA TEJEDA MD Jul 13, 2017 15:07
[2017-07-13] MEDS: NYSTATIN 100,000 UNITS/ML 5 ML ORAL.SUSP. SWSW SCH ×2 (17:38→22:17)
--- NOTE | 2017-07-13 19:17 | PDOC ---
PROGRESS NOTES Assessment Assessment TIA symptoms. Speech difficulties. Dizziness Light headedness Weakness, LE. Metabolic encephalopathy. Right CCA stenosis. Hypoxia. Respiratory failure. COPD DM HTN HLD Hypothyroidism Obesity. No evidence of acute CVA this time. RECOMMENDATIONS/PLAN: Treat medical diseases. Consulted Vascular Surgery for right CCA stenosis and CTA performed. OT/PT. Discussed with her family at bedside before. HISTORY OF THE PRESENT ILLNESS: 62-y-old female patient with above medical diseases especially hypoxia on 02 on daily basis. She developed symptoms of mental status changes, dizziness, light headedness, weakness with LE > UE, speech difficulties on to come to the ER of [facility].. Her speech problems resolved after 6 hours and she was able to talk, but she still felt dizzy, light headedness, and weakness. PAST MEDICAL HISTORY: Anxiety, Bronchitis, COPD, Depression, Diabetes-Type II, High Cholesterol, Hypertension, Hyperthyroid, [place] Additional Past Medical Histor: EMPHYSEMA PAST SURGERY HISTORY: Angioplasty Left knee replacementx2, spinal fusion, right knee arthroplasty, CTR, ALLERGY: Reviewed. MEDICATIONS: Refer to [facility] FAMILY HISTORY: Non contributory. SOCIAL HISTORY: Lives at home. Denies smoking, drinking, and illicit drug use. REVIEW OF SYSTEMS: Constitutional: No malnutrition, weight loss, cachexia. Head: No traumatic brain or head injury. Skin: No edema, or rash. Ear: No infection. Eyes: No vision loss or color blindness. Nose: No bleeding or purulent discharges. Hearing: No hearing decrease. Neck: No injury. Breast: No history of cancer, masses,or discharges. Cardiac: HTN, HLD. Pulmonary: COPD. GI: No GI ulcer, GI bleeding. Urinary/genital: UTI. Endocrinologic: Diabetes Mellitus, hypothyroidism, obesity. Skeletomuscular: Generalized weakness. Neurological: see HP. Psychiatric: Denies drug use/abuse. Otherwise, not [id number] review of systems. PHYSICAL EXAMINATION: General appearance is in subacute distress. HEENT: Normocephalic and nontraumatic. Eyes, nose, ears, and throat are unremarkable. Neck is supple. No lymphadenopathy. No bruits are heard over the carotid artery. No crepitus. Cardiovascular: S1, S2, regular rate and rhythm. Pulmonary: breath sounds decreased bilaterally. Abdomen: Bowel sounds are positive. Abdomen is soft, nontender, and nondistended. Extremities: No rash, lesions, or edema. No restriction of range of motion NEUROLOGICAL EXAMINATION: Awake. Oriented to time, place and person. PERRL. EOMI. CN: no focal findings. Muscle tone: within normal. Muscle strength: 4+ DTR: 1 Plantar reflex: Flexor response bilaterally Gait: not examined in bed. Sensory exam: no abnormal findings. No obvious cerebellar signs elicited. F-T-N test fine. Mild hand tremors noted in hands. Objective Objective Vital Signs Date Time Temp Pulse Resp B/P (MAP) Pulse Ox O2 Delivery O2 Flow Rate FiO2 07/13/17 15:22 Nasal Cannula 3.0 07/13/17 15:07 98.4 81 17 123/47 (72) 96 98.4 Intake and Output 07/13/17 07:00 Intake Total 2450 ml Output Total 850 ml Balance 1600 ml Intake Oral 2450 ml Output Urine Total 850 ml # Voids 4 # Bowel Movements 1 Vitals Signs Vitals VS - Last 72 Hours, by Label Date Time Temp Pulse Resp B/P (MAP) Pulse Ox O2 Delivery O2 Flow Rate FiO2 07/13/17 15:22 Nasal Cannula 3.0 07/13/17 15:07 98.4 81 17 123/47 (72) 96 Nasal Cannula 3.0 98.4 07/13/17 12:06 Nasal Cannula 3.0 07/13/17 11:02 98.4 80 17 129/64 (85) 96 Nasal Cannula 3.0 98.4 07/13/17 08:44 98 Nasal Cannula 3.0 07/13/17 08:30 80 141/67 07/13/17 08:29 80 141/67 07/13/17 08:29 80 141/67 07/13/17 08:28 80 141/67 07/13/17 08:00 Nasal Cannula 3.0 07/13/17 07:00 98.0 80 18 141/67 (91) 96 Nasal Cannula 3.0 98.0 07/13/17 03:15 98.0 86 18 140/68 (92) 96 Nasal Cannula 3.0 98.0 07/12/17 23:15 97.9 85 20 143/69 (93) 98 Nasal Cannula 3.0 97.9 07/12/17 20:17 97 Nasal Cannula 3.0 07/12/17 20:00 Nasal Cannula 3.0 07/12/17 19:15 98.0 87 20 131/72 (91) 96 Nasal Cannula 3.0 98.0 07/12/17 16:33 96 Nasal Cannula 3.0 07/12/17 15:00 98.1 81 20 130/70 (90) 96 Nasal Cannula 3.0 98.1 07/12/17 11:27 Nasal Cannula 3.0 07/12/17 11:00 98.4 90 21 152/53 (86) 96 Nasal Cannula 3.0 98.4 07/12/17 09:59 79 158/69 07/12/17 09:45 79 158/69 07/12/17 09:45 79 158/69 07/12/17 09:44 79 158/69 07/12/17 08:00 Nasal Cannula 3.0 07/12/17 07:44 96 Nasal Cannula 3.0 07/12/17 07:00 98.1 79 20 158/69 (98) 96 Nasal Cannula 3.0 98.1 Laboratory Laboratory Laboratory Tests Test 07/12/17 21:29 07/13/17 07:24 07/13/17 11:22 07/13/17 17:27 Glucose (Fingerstick) 277 mg/dL (70-99) 282 mg/dL (70-99) 331 mg/dL (70-99) 311 mg/dL (70-99) Microbiology 07/10/17 Urine Culture - Final, Complete 07/10/17 Urine Culture Result 1 (LEANN) - Final, Complete Medication Medications Current Medications Metformin HCl (Glucophage) 1,000 mg BIDWMEALS PO ; Start 07/14/17 at 12:00 Nystatin 10 ml [id number] Last administered on 07/13/17t 17:38; Start at 17:00 Throat Lozenges (Chloraseptic) 1 spray PRN Q2HR PRN PO SORE THROAT Last administered on 07/13/17 15:27; Start 07/13/17 at 15:00 Comment Review of Relevant I have reviewed the following items haroldo (where applicable) has been applied. SANJIV GRIMM MD Jul 13, 2017 19:17
[2017-07-13 19:46] VITALS: BP 144/51
[2017-07-13] MEDS: ATORVASTATIN CALCIUM 20 MG TABLET PO SCH (22:17)
[2017-07-13 23:17] VITALS: BP 139/61
[2017-07-14 03:06] VITALS: BP 131/65
[2017-07-14] MEDS: methylPREDNISolone SOD SUCC PF 40 MG/ML VIAL. IV SCH ×2 (05:35→14:00)
[2017-07-14] MEDS: LEVOTHYROXINE 88 MCG TABLET PO SCH (05:36)
[2017-07-14 07:00] VITALS: BP 177/90
[2017-07-14] MEDS: CITALOPRAM 20 MG TABLET. PO SCH (07:50)
[2017-07-14] MEDS: PANTOPRAZOLE 40 MG TABLET.DR. PO SCH (07:50)
[2017-07-14] MEDS: valACYclovir 500 MG TABLET. PO SCH (07:50)
[2017-07-14] MEDS: PRASUGREL 10 MG TABLET. PO SCH (07:51)
[2017-07-14] MEDS: FENOFIBRATE,MICRONIZED 134 MG CAPSULE PO SCH (07:51)
[2017-07-14] MEDS: SUCRALFATE 1 GM TABLET. PO SCH ×2 (07:52→12:07)
[2017-07-14] MEDS: SPIRONOLACTONE 25 MG TABLET PO SCH (07:52)
[2017-07-14] MEDS: METOPROLOL SUCC 24HR ER 50 MG TAB.ER.24H. PO SCH (07:53)
[2017-07-14] MEDS: ASPIRIN 325 MG TABLET PO SCH (07:53)
[2017-07-14] MEDS: amLODIPine BESYLATE 5 MG TABLET PO SCH (07:54)
[2017-07-14] MEDS: ISOSORBIDE MONONITRATE ER 30 MG TAB.ER.24H PO SCH (07:55)
[2017-07-14] MEDS: IPRATRPIUM/ALBUTEROL 0.5/2.5MG 3 ML NEBU. NEB SCH ×2 (07:55→12:12)
[2017-07-14] MEDS: NYSTATIN 100,000 UNITS/ML 5 ML ORAL.SUSP. SWSW SCH ×2 (07:56→13:00)
[2017-07-14] MEDS: LOSARTAN POTASSIUM 50 MG TABLET. PO SCH (07:56)
[2017-07-14] MEDS: ALBUTEROL SULFATE 2.5 MG/3 ML NEBU. NEB SCH ×2 (07:59→12:00)
[2017-07-14] MEDS: INSULIN ASPART 300 UNITS/3 ML INSULN.PEN SQ SCH ×2 (07:59→12:13)
[2017-07-14 11:07] VITALS: BP 147/76
[2017-07-14] MEDS: ENOXAPARIN 40 MG/0.4 ML SYRINGE. SQ SCH (12:00)
[2017-07-14] MEDS ORDERED: PRED-220 PO (13:34)
[2017-07-14] MEDS ORDERED: IPRA3AMP NEB (13:34)
--- NOTE | 2017-07-14 13:42 | PDOC ---
SUBJECTIVE Subjective feels better, breathing better, throat feels better OBJECTIVE Vital Signs Vital Signs Date Time Temp Pulse Resp B/P (MAP) Pulse Ox O2 Delivery O2 Flow Rate FiO2 07/14/17 12:14 Nasal Cannula 3.0 07/14/17 11:07 97.5 80 15 147/76 (99) 95 Nasal Cannula 3.0 97.5 07/14/17 08:00 Nasal Cannula 3.0 07/14/17 07:58 97 Nasal Cannula 3.0 07/14/17 07:56 80 177/90 07/14/17 07:55 80 177/90 07/14/17 07:54 80 177/90 07/14/17 07:53 80 177/90 07/14/17 07:00 98.0 80 19 177/90 (119) 95 Nasal Cannula 3.0 98.0 07/14/17 03:06 98.0 79 16 131/65 (87) 95 Nasal Cannula 3.0 98.0 07/13/17 23:17 97.7 77 20 139/61 (87) 98 Nasal Cannula 3.0 97.7 07/13/17 22:38 Nasal Cannula 3.0 07/13/17 20:39 97 Nasal Cannula 3.0 07/13/17 20:30 Nasal Cannula 3.0 07/13/17 19:46 98.0 82 18 144/51 (82) 96 Nasal Cannula 3.0 98.0 07/13/17 15:22 Nasal Cannula 3.0 07/13/17 15:07 98.4 81 17 123/47 (72) 96 Nasal Cannula 3.0 98.4 I & O Intake and Output 07/14/17 07:00 Intake Total 1480 ml Output Total 2900 ml Balance -1420 ml Intake Oral 1480 ml Output Urine Total 2900 ml PHYSICAL EXAM Physical Exam lungs much better pharynx clear now heart RRR abd soft ASSESSMENT/PLAN Assessment/Plan home today, F/U out pt Problems: COMMENT Lab Laboratory Tests Test 07/13/17 17:27 07/13/17 20:51 07/14/17 07:49 07/14/17 11:29 Glucose (Fingerstick) 311 mg/dL (70-99) 260 mg/dL (70-99) 301 mg/dL (70-99) 328 mg/dL (70-99) AURA TEJEDA MD Jul 14, 2017 13:42
--- NOTE | 2017-07-14 13:43 | PDOC3 ---
Discharge Summary* Date of Admission: Jul 10, 2017 Date of Discharge: Jul 14, 2017 Admitting Diagnosis Problems Medical Problems: (1) Altered mental status Status: Acute Problems: Final Diagnosis 1. TIA like symptoms , 2. Carotid vascular disease does not require surgery , continue ASA and Effient recheck carotid doppler 1 year 3. change mental status , cause not clear 4.COPD exacerbation and hypoxia continue breathing Tx and steroids 5.CAD 6. DM II Problems Medical Problems: (1) Altered mental status Status: Acute CONSULTS Neurology, vascular surgery Procedures CXR, CT head, MRI Brain, Carotid doppler, Head/neck CTA arteriogram Brief Hospital Course Ms. Cash is a 62 old [sex] who presented with [ ] Disposition/Orders: D/C to Home CONDITION AT DISCHARGE: Improved Diet: Cardiac, Consistent Carbohydrate Scheduled Amlodipine Besylate (Amlodipine Besylate), 5 MG PO DAILY Aspirin (Aspir 81), 1 TAB PO DAILY, (Reported) Atorvastatin Calcium (Atorvastatin Calcium), 20 MG PO DAILY, (Reported) Citalopram Hydrobromide (Citalopram Hbr), 40 MG PO DAILY, (Reported) Esomeprazole Magnesium (Nexium Capsule), 1 CAP PO DAILY, (Reported) Fenofibrate Nanocrystallized (Fenofibrate), 160 MG PO DAILY, (Reported) Ipratropium/Albuterol Sulfate (Duoneb 0.5-3(2.5) Mg/3 Ml), 3 ML NEB RTQID Isosorbide Mononitrate (Isosorbide Mononitrate Er), 30 MG PO DAILY, (Reported) Levothyroxine Sodium (Levothyroxine Sodium), 88 MCG PO DAILY06, (Reported) Metformin Hcl (Metformin Hcl), 1,000 MG PO BID, (Reported) Metoprolol Succinate (Metoprolol Succinate ( Xl )), 2 TAB PO DAILY, (Reported) Prasugrel Hcl (Effient), 10 MG PO DAILYWBKFT Spironolactone (Spironolactone), 1 TAB PO DAILY Sucralfate (Carafate), 1 GM PO QIDACHS Valacyclovir Hcl (Valacyclovir), 500 MG PO BID, (Reported) Valsartan (Diovan), 160 MG PO DAILY, (Reported) FOLLOW UP APPOINTMENT: Dr. Hoang 1 week Time Spent Total time spent with patient [] minutes for coordination of care, counseling, and education. AURA TEJEDA MD Jul 14, 2017 13:43
--- NOTE | 2017-07-14 14:30 | PDOC ---
PROGRESS NOTES Assessment Assessment TIA symptoms. Speech difficulties. Dizziness Light headedness Weakness, LE. Metabolic encephalopathy. Right CCA stenosis. Hypoxia. Respiratory failure. COPD DM HTN HLD Hypothyroidism Obesity. No evidence of acute CVA this time. RECOMMENDATIONS/PLAN: Continue ASA 325 mg daily. Continue Lipitor HS. Treat medical diseases. Consulted Vascular Surgery for right CCA stenosis and CTA performed. FU with PCP. FU with Vascular Surgery. HISTORY OF THE PRESENT ILLNESS: 62-y-old female patient with above medical diseases especially hypoxia on 02 on daily basis. She developed symptoms of mental status changes, dizziness, light headedness, weakness with LE > UE, speech difficulties on to come to the ER of [facility].. Her speech problems resolved after 6 hours and she was able to talk, but she still felt dizzy, light headedness, and weakness. She is doing better on 07/14/17. PAST MEDICAL HISTORY: Anxiety, Bronchitis, COPD, Depression, Diabetes-Type II, High Cholesterol, Hypertension, Hyperthyroid, [place] Additional Past Medical Histor: EMPHYSEMA PAST SURGERY HISTORY: Angioplasty Left knee replacementx2, spinal fusion, right knee arthroplasty, CTR, ALLERGY: Reviewed. MEDICATIONS: Refer to [facility] FAMILY HISTORY: Non contributory. SOCIAL HISTORY: Lives at home. Denies smoking, drinking, and illicit drug use. REVIEW OF SYSTEMS: Constitutional: No malnutrition, weight loss, cachexia. Head: No traumatic brain or head injury. Skin: No edema, or rash. Ear: No infection. Eyes: No vision loss or color blindness. Nose: No bleeding or purulent discharges. Hearing: No hearing decrease. Neck: No injury. Breast: No history of cancer, masses,or discharges. Cardiac: HTN, HLD. Pulmonary: COPD. GI: No GI ulcer, GI bleeding. Urinary/genital: UTI. Endocrinologic: Diabetes Mellitus, hypothyroidism, obesity. Skeletomuscular: Generalized weakness. Neurological: see HP. Psychiatric: Denies drug use/abuse. Otherwise, not [id number] review of systems. PHYSICAL EXAMINATION: General appearance is in subacute distress. HEENT: Normocephalic and nontraumatic. Eyes, nose, ears, and throat are unremarkable. Neck is supple. No lymphadenopathy. No bruits are heard over the carotid artery. No crepitus. Cardiovascular: S1, S2, regular rate and rhythm. Pulmonary: breath sounds decreased bilaterally. Abdomen: Bowel sounds are positive. Abdomen is soft, nontender, and nondistended. Extremities: No rash, lesions, or edema. No restriction of range of motion NEUROLOGICAL EXAMINATION: Awake. Oriented to time, place and person. PERRL. EOMI. CN: no focal findings. Muscle tone: within normal. Muscle strength: 4+ DTR: 1 Plantar reflex: Flexor response bilaterally Gait: at her baseline normal. Sensory exam: no abnormal findings. No obvious cerebellar signs elicited. F-T-N test fine. Mild hand tremors noted in hands. Objective Objective Vital Signs Date Time Temp Pulse Resp B/P (MAP) Pulse Ox O2 Delivery O2 Flow Rate FiO2 07/14/17 12:14 Nasal Cannula 3.0 07/14/17 11:07 97.5 80 15 147/76 (99) 95 97.5 Intake and Output 07/14/17 07:00 Intake Total 1480 ml Output Total 2900 ml Balance -1420 ml Intake Oral 1480 ml Output Urine Total 2900 ml Vitals Signs Vitals VS - Last 72 Hours, by Label Date Time Temp Pulse Resp B/P (MAP) Pulse Ox O2 Delivery O2 Flow Rate FiO2 07/14/17 12:14 Nasal Cannula 3.0 07/14/17 11:07 97.5 80 15 147/76 (99) 95 Nasal Cannula 3.0 97.5 07/14/17 08:00 Nasal Cannula 3.0 07/14/17 07:58 97 Nasal Cannula 3.0 07/14/17 07:56 80 177/90 07/14/17 07:55 80 177/90 07/14/17 07:54 80 177/90 07/14/17 07:53 80 177/90 07/14/17 07:00 98.0 80 19 177/90 (119) 95 Nasal Cannula 3.0 98.0 07/14/17 03:06 98.0 79 16 131/65 (87) 95 Nasal Cannula 3.0 98.0 07/13/17 23:17 97.7 77 20 139/61 (87) 98 Nasal Cannula 3.0 97.7 07/13/17 22:38 Nasal Cannula 3.0 07/13/17 20:39 97 Nasal Cannula 3.0 07/13/17 20:30 Nasal Cannula 3.0 07/13/17 19:46 98.0 82 18 144/51 (82) 96 Nasal Cannula 3.0 98.0 07/13/17 15:22 Nasal Cannula 3.0 07/13/17 15:07 98.4 81 17 123/47 (72) 96 Nasal Cannula 3.0 98.4 07/13/17 12:06 Nasal Cannula 3.0 07/13/17 11:02 98.4 80 17 129/64 (85) 96 Nasal Cannula 3.0 98.4 07/13/17 08:44 98 Nasal Cannula 3.0 07/13/17 08:30 80 141/67 07/13/17 08:29 80 141/67 07/13/17 08:29 80 141/67 07/13/17 08:28 80 141/67 07/13/17 08:00 Nasal Cannula 3.0 07/13/17 07:00 98.0 80 18 141/67 (91) 96 Nasal Cannula 3.0 98.0 Laboratory Laboratory Laboratory Tests Test 07/13/17 17:27 07/13/17 20:51 07/14/17 07:49 07/14/17 11:29 Glucose (Fingerstick) 311 mg/dL (70-99) 260 mg/dL (70-99) 301 mg/dL (70-99) 328 mg/dL (70-99) Microbiology 07/10/17 Urine Culture - Final, Complete 07/10/17 Urine Culture Result 1 (LEANN) - Final, Complete Medication Medications Current Medications Metformin HCl (Glucophage) 1,000 mg BIDWMEALS PO Last administered on 12:07; Start 07/14/17 at 12:00 Nystatin 10 ml [id number] Last administered on 07/14/17 07:56; Start at 17:00 Throat Lozenges (Chloraseptic) 1 spray PRN Q2HR PRN PO SORE THROAT Last administered on 07/13/17 15:27; Start 07/13/17 at 15:00 Comment Review of Relevant I have reviewed the following items haroldo (where applicable) has been applied. SANJIV GRIMM MD Jul 14, 2017 14:30
[2017-07-14 14:58] VITALS: BP 146/76
== END 2017-07-14 15:00 | disposition home or self-care (01) | DRG 67 ==
LOC: ER 12:04 → 6 SOUTH 13:56
PROVIDERS: ADMIT Internal Medicine; ATTEND Internal Medicine
DX: I65.23 Occlusion and stenosis of bilateral carotid arteries (principal); J96.91 Respiratory failure, unspecified with hypoxia; G93.41 Metabolic encephalopathy; J44.1 Chronic obstructive pulmonary disease with (acute) exacerbation; I27.2 Other secondary pulmonary hypertension; I11.0 Hypertensive heart disease with heart failure; I50.9 Heart failure, unspecified; G45.9 Transient cerebral ischemic attack, unspecified; E11.9 Type 2 diabetes mellitus without complications; I25.10 Atherosclerotic heart disease of native coronary artery without angina pectoris; E78.5 Hyperlipidemia, unspecified; G62.9 Polyneuropathy, unspecified; G56.00 Carpal tunnel syndrome, unspecified upper limb; F41.9 Anxiety disorder, unspecified; F32.9 Major depressive disorder, single episode, unspecified; M19.90 Unspecified osteoarthritis, unspecified site; M81.0 Age-related osteoporosis without current pathological fracture; E03.9 Hypothyroidism, unspecified; E78.00 Pure hypercholesterolemia, unspecified; E05.90 Thyrotoxicosis, unspecified without thyrotoxic crisis or storm; Z96.653 Presence of artificial knee joint, bilateral; E66.9 Obesity, unspecified; K21.9 Gastro-esophageal reflux disease without esophagitis; Z90.49 Acquired absence of other specified parts of digestive tract; I25.2 Old myocardial infarction; Z98.51 Tubal ligation status; Z83.3 Family history of diabetes mellitus; Z82.49 Family history of ischemic heart disease and other diseases of the circulatory system; Z68.32 Body mass index [BMI] 32.0-32.9, adult; Z98.1 Arthrodesis status; Z79.82 Long term (current) use of aspirin; Z99.81 Dependence on supplemental oxygen
CPT/HCPCS: 99285; C8924; 36415; 70450; 70496; 70498; 70551; 71010; 80048; 80053; 80061; 80307; 81001; 82550; 82607; 82962; 83880; 84443; 84484; 85025; 85610; 85730; 87086; 93005; 93880; 94640; 94760; 95816; G0480; J1650; J1815; J2060; J2270; J2920; J7613; J7620; Q9967; G0479

== ENCOUNTER 2017-08-04 14:20 | Inpatient (IN) | payer MEDICARE, MEDICAID ==
[2017-08-04] VITALS (8 sets, daily range): BP systolic 124–192; BP diastolic 66–96
[~2017-08-04] VITALS: Ht 162.6 cm; Wt 93.6 kg
[~2017-08-04 14:20] MED LIST changes: +METO-239 PO; -METO25TA9 PO
[2017-08-04] MEDS ORDERED: methylPREDNISolone SOD SUCC PF 125 MG/2 ML VIAL. ONE (14:32)
[2017-08-04 14:45] LABS: BASO % 1 % (0-3); EOS % 1 % (0-3); HEMATOCRIT 34.4 % (36.0-47.0); LYMPH # 1.3 x10^3/uL (1.0-4.8); LYMPH % 18 % (24-48); MEAN CORPUSCULAR HEMOGLOBIN 29 pg (25-35); MEAN CORPUSCULAR HGB CONC 32 g/dL (31-37); MEAN CORPUSCULAR VOLUME 89 fL (79-100); MONO % 7 % (0-9); NEUT % 73 % (31-73); PLATELET COUNT 222 x10^3/uL (140-400); RED BLOOD COUNT 3.85 x10^6/uL (3.50-5.40); RED CELL DISTRIBUTION WIDTH 13.6 % (11.5-14.5); WHITE BLOOD COUNT 7.4 x10^3/uL (4.0-11.0)
[2017-08-04] MEDS ORDERED: methylPREDNISolone SOD SUCC PF 125 MG/2 ML VIAL. IV ONE (14:45)
[2017-08-04] MEDS ORDERED: IPRATRPIUM/ALBUTEROL 0.5/2.5MG 3 ML NEBU. NEB ONE (14:45)
[2017-08-04 15:00] LABS: CALCIUM 9.1 mg/dL (8.5-10.1); POTASSIUM 4.9 mmol/L (3.5-5.1)
[2017-08-04 15:06] LABS: ALBUMIN 3.6 g/dL (3.4-5.0); DIRECT BILIRUBIN 0.1 mg/dL (0.0-0.2); TOTAL BILIRUBIN 0.4 mg/dL (0.2-1.0); TOTAL PROTEIN 7.7 g/dL (6.4-8.2)
--- NOTE | 2017-08-04 15:18 | RAD ---
Portable chest, 2016: History: Shortness of breath, right-sided chest pain Comparison is made to a study from 08/02/2017. The patient is rotated to the right. The heart size and pulmonary vascularity are normal. No pulmonary infiltrates are seen. There is no evidence of pleural fluid or pneumothorax. Vertebroplasty change is noted at 2 levels in the midthoracic spine. IMPRESSION: No acute cardiopulmonary abnormality is detected.
[2017-08-04] MEDS ORDERED: MORPHINE SULFATE 2 MG/ML DISP.SYRIN. IV PRN (15:30)
[2017-08-04] MEDS ORDERED: ONDANSETRON PF 4 MG/2 ML VIAL. IV PRN (15:30)
[2017-08-04] MEDS ORDERED: DEXTROSE 50% 25 GM / 50ML DISP.SYRIN. IV PRN (15:45)
[2017-08-04] MEDS ORDERED: ACETAMINOPHEN 500 MG TABLET PO PRN (15:45)
[2017-08-04] MEDS ORDERED: LABETALOL 20 MG/4 ML DISP.SYRIN. IVP PRN (15:45)
[2017-08-04] MEDS: METOPROLOL SUCC 24HR ER 50 MG TAB.ER.24H. PO SCH (16:00)
[2017-08-04] MEDS: PANTOPRAZOLE 40 MG TABLET.DR. PO SCH (16:00)
[2017-08-04] MEDS: CITALOPRAM 20 MG TABLET. PO SCH (16:00)
[2017-08-04] MEDS ORDERED: IPRATRPIUM/ALBUTEROL 0.5/2.5MG 3 ML NEBU. NEB SCH (16:00)
[2017-08-04] MEDS: amLODIPine BESYLATE 2.5 MG TABLET PO SCH (16:00)
[2017-08-04] MEDS: FENOFIBRATE,MICRONIZED 134 MG CAPSULE PO SCH (16:00)
[2017-08-04] MEDS: LEVOTHYROXINE 88 MCG TABLET PO SCH (16:00)
[2017-08-04] MEDS: LOSARTAN POTASSIUM 50 MG TABLET. PO SCH (16:00)
[2017-08-04] MEDS: ISOSORBIDE MONONITRATE ER 30 MG TAB.ER.24H PO SCH (16:00)
[2017-08-04] MEDS: PRASUGREL 10 MG TABLET. PO SCH (16:00)
[2017-08-04] MEDS: SPIRONOLACTONE 25 MG TABLET PO SCH (16:00)
[2017-08-04] MEDS ORDERED: INSULIN ASPART 300 UNITS/3 ML INSULN.PEN SQ SCH (17:00)
--- NOTE | 2017-08-04 17:11 | PHYS DOC ---
Past Medical History Past Medical History: Anxiety, Bronchitis, COPD, Depression, Diabetes-Type II, High Cholesterol, Hypertension, Hyperthyroid, [place] Additional Past Medical Histor: EMPHYSEMA Past Surgical History: Angioplasty, Other Additional Past Surgical Histo: left knee replacementx2, spinal fusion, right knee arthroplasty, CTR, Additional Information: PATIENT DENIES SMOKING Alcohol Use: Rarely Drug Use: None Adult General Chief Complaint Chief Complaint: SHORTNESS OF BREATH HPI HPI 62-year-old female presenting to the emergency department today with worsening shortness of breath. She reports her shortness of breath started earlier this morning. It was not sudden in onset. It is worse with exertion and improved with rest. Upon triage patient was found to be hypoxic and in extreme labored breathing. She is brought down to a resuscitation bay and placed on BiPAP. Nonradiating intermittent and not associated with any nausea vomiting diaphoresis. She has mild chest pain that is intermittent. Review of systems is negative for abdominal pain nausea vomiting fevers or chills. All other review of systems is negative unless otherwise noted in history of present illness. ED course: 62-year-old female presenting to the emergency department with acute respiratory failure initially. She was placed on BiPAP. Chest x-ray obtained similar to previous however does show mild cephalization and blunting of the costophrenic angle suggestive of CHF. ProBNP mildly elevated. Otherwise troponin negative. EKG obtained and reviewed by myself shows sinus tachycardia. [place] normal. ST segments show variable baseline in lead 3 and V3 because of the patient's respiratory status however no obvious ST changes. Troponin negative. I discussed the case with the primary care physician Dr. Tejeda who then admitted the patient to the ICU. Chest x-ray was reviewed by myself which shows no obvious changes when compared to previous however does show blunting of costophrenic angles. Review of Systems Review of Systems SEE ABOVE. Current Medications Current Medications Current Medications Medications (Trade) Dose Ordered Sig/Juan Start Time Stop Time Status Last Admin Dose Admin Albuterol/ Ipratropium (Duoneb) 3 ml 1X ONCE 08/04/17 14:45 08/04/17 14:46 DC 08/04/17 14:45 3 ML Methylprednisolone Sodium Succinate (SOLU-Medrol 125MG VIAL) 125 mg 1X ONCE 08/04/17 14:45 08/04/17 14:46 DC 08/04/17 14:44 125 MG Allergies Allergies Allergies Coded Allergies Type Severity Reaction Last Updated Verified levofloxacin Allergy Intermediate Hives 03/05/17 Yes Physical Exam Physical Exam SEE ABOVE Constitutional: Well developed, well nourished, she has labored breathing and is in respiratory distress initially placed on BiPAP. HENT: Normocephalic, atraumatic, bilateral external ears normal, oropharynx moist, no oral exudates, nose normal. [] Eyes: PERRLA, EOMI, conjunctiva normal, no discharge. [] Neck: Normal range of motion, no tenderness, supple, no stridor. [] Cardiovascular:Heart rate regular rhythm, no murmur [] Lungs & Thorax: Diffuse wheezing bilaterally with mild crackles at the bases. Abdomen: Bowel sounds normal, soft, no tenderness, no masses, no pulsatile masses. [] Skin: Warm, dry, no erythema, no rash. [] Back: No tenderness, no CVA tenderness. [] Extremities: No tenderness, no cyanosis, no clubbing, ROM intact, no edema. [] Neurologic: Alert and oriented X 3, normal motor function, normal sensory function, no focal deficits noted. [] Psychologic: Affect normal, judgement normal, mood normal. [] Current Patient Data Vital Signs Vital Signs Date Time Temp Pulse Resp B/P (MAP) Pulse Ox O2 Delivery O2 Flow Rate FiO2 08/04/17 15:11 90 165/86 (112) 100 BiPAP/CPAP 08/04/17 14:44 98.5 23 15.0 98.5 Lab Values Laboratory Tests Test 08/04/17 14:35 White Blood Count 7.4 x10^3/uL (4.0-11.0) Red Blood Count 3.85 x10^6/uL (3.50-5.40) Hemoglobin 11.0 g/dL (12.0-15.5) L Hematocrit 34.4 % (36.0-47.0) L Mean Corpuscular Volume 89 fL (79-100) Mean Corpuscular Hemoglobin 29 pg (25-35) Mean Corpuscular Hemoglobin Concent 32 g/dL (31-37) Red Cell Distribution Width 13.6 % (11.5-14.5) Platelet Count 222 x10^3/uL (140-400) Neutrophils (%) (Auto) 73 % (31-73) Lymphocytes (%) (Auto) 18 % (24-48) L Monocytes (%) (Auto) 7 % (0-9) Eosinophils (%) (Auto) 1 % (0-3) Basophils (%) (Auto) 1 % (0-3) Neutrophils # (Auto) 5.4 x10^3uL (1.8-7.7) Lymphocytes # (Auto) 1.3 x10^3/uL (1.0-4.8) Monocytes # (Auto) 0.5 x10^3/uL (0.0-1.1) Eosinophils # (Auto) 0.1 x10^3/uL (0.0-0.7) Basophils # (Auto) 0.0 x10^3/uL (0.0-0.2) Sodium Level 139 mmol/L (136-145) Potassium Level 4.9 mmol/L (3.5-5.1) Chloride Level 102 mmol/L (98-107) Carbon Dioxide Level 30 mmol/L (21-32) Anion Gap 7 (6-14) Blood Urea Nitrogen 11 mg/dL (7-20) Creatinine 1.0 mg/dL (0.6-1.0) Estimated GFR (Cockcroft-Gault) 56.0 Glucose Level 171 mg/dL (70-99) H Calcium Level 9.1 mg/dL (8.5-10.1) Total Bilirubin 0.4 mg/dL (0.2-1.0) Direct Bilirubin 0.1 mg/dL (0.0-0.2) Aspartate Amino Transferase (AST) 22 U/L (15-37) Alanine Aminotransferase (ALT) 24 U/L (14-59) Alkaline Phosphatase 84 U/L (46-116) Troponin I Quantitative < 0.017 ng/mL (0.000-0.055) DS-Wgu-J-Type Natriuretic Peptide 379 pg/mL (0-124) H Total Protein 7.7 g/dL (6.4-8.2) Albumin 3.6 g/dL (3.4-5.0) Lipase 133 U/L (73-393) Laboratory Tests 08/04/17 14:35 Laboratory Tests 08/04/17 14:35 EKG EKG [] Radiology/Procedures Radiology/Procedures [] Course & Med Decision Making Course & Med Decision Making Pertinent Labs and Imaging studies reviewed. (See chart for details) [] Dragon Disclaimer Dragon Disclaimer This electronic medical record was generated, in whole or in part, using a voice recognition dictation system. Departure Departure Impression: Primary Impression: COPD (chronic obstructive pulmonary disease) Additional Impression: COPD exacerbation Disposition: ADMITTED INPATIENT Admitting Physician: Aura Tejeda Condition: STABLE Referrals: AURA TEJEDA MD (PCP) Critical Care Time Critical care time was [35] minutes exclusive of procedures. Time was spent evaluating the patient, ordering the titration of ventilation, ordering blood work reviewing chest x-ray discussing with the admitting provider and documenting. Problem Qualifiers СЕРГЕЙ MEJIA MD Aug 04, 2017 17:11
[2017-08-04 17:17] LABS: BASE EXCESS COOX 1 mmol/L (-3-3); CARBON MONOXIDE 0.3 % (0.0-1.9); HCO3 COOX 26 mmol/L (21-28); METHEMOGLOBIN 0.5 % (0.0-1.9); OXYHEMOGLOBIN 96.8 %; PCO2 COOX 46 mmHg (35-46); PH COOX 7.38 (7.35-7.45); PO2 COOX 116 mmHg (65-108); SAT O2 COOX 98 % (92-99); TOTAL HEMOGLOBIN 11.4 g/dL
[2017-08-04 17:18] LABS: FIO2 COOX 30
[2017-08-04 20:36] LABS: HCO3 ABG 27 mmol/L (21-28); PCO2 ABG 47 mmHg (35-46); PO2 ABG 91 mmHg (65-108); SAT O2 ABG 96 % (92-99)
[2017-08-04 20:39] LABS: FIO2 ABG 30; PH ABG 7.38 (7.35-7.45)
[2017-08-04] MEDS: IPRATRPIUM/ALBUTEROL 0.5/2.5MG 3 ML NEBU. NEB SCH ×2 (20:54→23:28)
[2017-08-04] MEDS: SUCRALFATE 1 GM TABLET. PO SCH ×2 (21:00→21:20)
[2017-08-04] MEDS: ATORVASTATIN CALCIUM 20 MG TABLET PO SCH (21:20)
[2017-08-04] MEDS: valACYclovir 500 MG TABLET. PO SCH (21:20)
[2017-08-04] MEDS: INSULIN ASPART 300 UNITS/3 ML INSULN.PEN SQ SCH (21:30)
[2017-08-04] MEDS ORDERED: methylPREDNISolone SOD SUCC PF 40 MG/ML VIAL. IV SCH (22:00)
[2017-08-05] VITALS (16 sets, daily range): BP systolic 101–158; BP diastolic 53–80
[2017-08-05] MEDS: methylPREDNISolone SOD SUCC PF 125 MG/2 ML VIAL. IV SCH ×4 (00:18→20:53)
[2017-08-05] MEDS: IPRATRPIUM/ALBUTEROL 0.5/2.5MG 3 ML NEBU. NEB SCH ×5 (04:07→20:02)
[2017-08-05 04:28] LABS: BASO % 0 % (0-3); EOS % 0 % (0-3); HEMATOCRIT 30.8 % (36.0-47.0); LYMPH # 0.6 x10^3/uL (1.0-4.8); LYMPH % 9 % (24-48); MEAN CORPUSCULAR HEMOGLOBIN 29 pg (25-35); MEAN CORPUSCULAR HGB CONC 32 g/dL (31-37); MEAN CORPUSCULAR VOLUME 89 fL (79-100); MONO % 1 % (0-9); NEUT % 90 % (31-73); PLATELET COUNT 207 x10^3/uL (140-400); RED BLOOD COUNT 3.47 x10^6/uL (3.50-5.40); RED CELL DISTRIBUTION WIDTH 13.5 % (11.5-14.5); WHITE BLOOD COUNT 6.4 x10^3/uL (4.0-11.0)
[2017-08-05 05:27] LABS: CALCIUM 8.9 mg/dL (8.5-10.1); POTASSIUM 4.6 mmol/L (3.5-5.1)
[2017-08-05] MEDS: LEVOTHYROXINE 88 MCG TABLET PO SCH (05:52)
--- NOTE | 2017-08-05 06:01 | ACF ---
Admission Forms Criteria COPD Clinical Indications for Admission to Inpatient Care ([place]/check or initial the applicable condition/criteria) Admission is indicated for ANY ONE of the following (1)(2)(3): [X]I. Acute exacerbation by high-risk comorbidity(e.g., pneumonia, dysrhythmia, heart failure, pleural effusion, pneumothorax) or severe underlying COPD (eg, baseline FEV1 less than 50% predicted) [ ]II. Inpatient admission required[A] rather than observation care (see Chronic Obstructive Pulmonary Disease: Observation Care) because of ANY ONE of the following: [ ]a) New or pre-existing signs or symptoms of COPD (eg, dyspnea or Tachypnea at rest or with minimal activity) that persist despite outpatient and observation care treatment [ ]b) New-onset hypoxemia (room air SaO2 less than 90%, PO2 less than 60 mm Hg (8.0 kPa)) that persists despite outpatient and observation care treatment [ ]c) Worsening of pre-existing hypoxemia (eg, new or increased requirement for supplemental oxygen to maintain oxygenation at baseline level) that persists despite outpatient and observation care treatment, with oxygen treatment needs performable only in acute inpatient setting [ ]d) Hypercarbia (PCO2 greater than 40 mm Hg (5.3 kPa))-induced respiratory acidosis (pH less than 7.35) that persists despite outpatient and observation care treatment [ ]e) Supplemental oxygen or respiratory treatments for over 24 hours that are performable only in acute inpatient setting [ ]f) Chest tube placement with active evacuation (e.g., suction, drainage) (6) [ ]g) Other condition, treatment or monitoring requiring inpatient admission [ ]III. Planned invasive surgical or diagnostic procedures requiring acute- care hospitalization [ ]IV. Acute respiratory failure (e.g., uncompensated hypercarbia, severe hypoxemia) [ ]V. Severe comorbid condition (e.g., severe steroid myopathy, acute vertebral fracture) that has acutely worsened pulmonary function [ ]. Altered mental status that is severe or persistent Extended stay beyond goal length of stay may be needed for (29)(30)(31)(32)(33) : [ ]a ) Respiratory Failure. [ ]b) Severe or persisting hypoxemia or hypercarbia [ ]c) Severe or persistent dyspnea [ ]d) Clinically significant Comorbidities (e.g. chronic heart failure, atrial fibrillation with rapid response, pneumonia)(36) [ ]e) Malnutrition (33) The original [facility] content created by [facility] has been revised. The portions of the content which have been revised are identified through the use of italic text, and [facility] has neither reviewed nor approved the modified material. All other unmodified content is copyright [facility]. Please see references footnoted in the original [facility] edition 2015 Admission Criteria Met?: Yes DONNA CRONIN Aug 05, 2017 06:01
--- NOTE | 2017-08-05 06:13 | EKG ---
[facility] [address] [place] [id number] Test Date: 2017-08-04 Test Time: 14:25:13 Pat Name: ESVIN SCHROEDER Department: Room: Gender: F Help Aid: : 1955 Requested By: СЕРГЕЙ MEJIA Order Number: [id number] Reading MD: Measurements Intervals [place] Rate: 106 P: 66 SC: 136 QRS: 55 QRSD: 90 T: 71 QT: 316 QTc: 421 Interpretive Statements SINUS TACHYCARDIA RI6.01 Unconfirmed report No previous ECG available for comparison
[2017-08-05] MEDS ORDERED: predniSONE 10 MG TABLET PO SCH (08:00)
[2017-08-05] MEDS: SUCRALFATE 1 GM TABLET. PO SCH ×4 (08:46→20:53)
[2017-08-05] MEDS: PANTOPRAZOLE 40 MG TABLET.DR. PO SCH (08:46)
[2017-08-05] MEDS: ISOSORBIDE MONONITRATE ER 30 MG TAB.ER.24H PO SCH (08:47)
[2017-08-05] MEDS: METOPROLOL SUCC 24HR ER 50 MG TAB.ER.24H. PO SCH (08:47)
[2017-08-05] MEDS: FENOFIBRATE,MICRONIZED 134 MG CAPSULE PO SCH (08:47)
[2017-08-05] MEDS: LOSARTAN POTASSIUM 50 MG TABLET. PO SCH (08:48)
[2017-08-05] MEDS: PRASUGREL 10 MG TABLET. PO SCH (08:48)
[2017-08-05] MEDS: valACYclovir 500 MG TABLET. PO SCH ×2 (08:48→20:53)
[2017-08-05] MEDS: CITALOPRAM 20 MG TABLET. PO SCH (08:48)
[2017-08-05] MEDS: ASPIRIN ENTERIC COATED 81 MG TABLET.DR. PO SCH (08:48)
[2017-08-05] MEDS: SPIRONOLACTONE 25 MG TABLET PO SCH (08:48)
[2017-08-05] MEDS: amLODIPine BESYLATE 2.5 MG TABLET PO SCH (08:49)
[2017-08-05] MEDS: INSULIN ASPART 300 UNITS/3 ML INSULN.PEN SQ SCH ×4 (08:53→21:00)
[2017-08-05 09:37] LABS: PLT ESTIMATE ADEQUATE (ADEQUATE)
--- NOTE | 2017-08-05 10:25 | PDOC ---
PULMONARY PROGRESS NOTES Vitals Vital Signs Date Time Temp Pulse Resp B/P (MAP) Pulse Ox O2 Delivery O2 Flow Rate FiO2 08/05/17 09:10 96 Nasal Cannula 2.5 08/05/17 09:00 90 20 146/73 (97) 08/05/17 07:00 98.5 98.5 HEENT: Other Labs Laboratory Tests Test 08/04/17 14:35 08/04/17 16:34 08/04/17 18:11 08/04/17 21:20 White Blood Count 7.4 x10^3/uL (4.0-11.0) Red Blood Count 3.85 x10^6/uL (3.50-5.40) Hemoglobin 11.0 g/dL (12.0-15.5) Hematocrit 34.4 % (36.0-47.0) Mean Corpuscular Volume 89 fL (79-100) Mean Corpuscular Hemoglobin 29 pg (25-35) Mean Corpuscular Hemoglobin Concent 32 g/dL (31-37) Red Cell Distribution Width 13.6 % (11.5-14.5) Platelet Count 222 x10^3/uL (140-400) Neutrophils (%) (Auto) 73 % (31-73) Lymphocytes (%) (Auto) 18 % (24-48) Monocytes (%) (Auto) 7 % (0-9) Eosinophils (%) (Auto) 1 % (0-3) Basophils (%) (Auto) 1 % (0-3) Neutrophils # (Auto) 5.4 x10^3uL (1.8-7.7) Lymphocytes # (Auto) 1.3 x10^3/uL (1.0-4.8) Monocytes # (Auto) 0.5 x10^3/uL (0.0-1.1) Eosinophils # (Auto) 0.1 x10^3/uL (0.0-0.7) Basophils # (Auto) 0.0 x10^3/uL (0.0-0.2) Sodium Level 139 mmol/L (136-145) Potassium Level 4.9 mmol/L (3.5-5.1) Chloride Level 102 mmol/L (98-107) Carbon Dioxide Level 30 mmol/L (21-32) Anion Gap 7 (6-14) Blood Urea Nitrogen 11 mg/dL (7-20) Creatinine 1.0 mg/dL (0.6-1.0) Estimated GFR (Cockcroft-Gault) 56.0 Glucose Level 171 mg/dL (70-99) Calcium Level 9.1 mg/dL (8.5-10.1) Total Bilirubin 0.4 mg/dL (0.2-1.0) Direct Bilirubin 0.1 mg/dL (0.0-0.2) Aspartate Amino Transf (AST/SGOT) 22 U/L (15-37) Alanine Aminotransferase (ALT/SGPT) 24 U/L (14-59) Alkaline Phosphatase 84 U/L (46-116) Troponin I Quantitative < 0.017 ng/mL (0.000-0.055) < 0.017 ng/mL (0.000-0.055) AP-Bwr-B-Type Natriuretic Peptide 379 pg/mL (0-124) Total Protein 7.7 g/dL (6.4-8.2) Albumin 3.6 g/dL (3.4-5.0) Lipase 133 U/L (73-393) O2 Saturation 98 % (92-99) Arterial Blood pH 7.38 (7.35-7.45) Arterial Blood pCO2 at Patient Temp 46 mmHg (35-46) Arterial Blood pO2 at Patient Temp 116 mmHg (65-108) Arterial Blood HCO3 26 mmol/L (21-28) Arterial Blood Base Excess 1 mmol/L (-3-3) Oxyhemoglobin 96.8 % Methemoglobin 0.5 % (0.0-1.9) Carbon Monoxide, Quantitative 0.3 % (0.0-1.9) FiO2 30 Glucose (Fingerstick) 248 mg/dL (70-99) Test 08/04/17 21:26 08/05/17 03:30 Glucose (Fingerstick) 288 mg/dL (70-99) White Blood Count 6.4 x10^3/uL (4.0-11.0) Red Blood Count 3.47 x10^6/uL (3.50-5.40) Hemoglobin 10.0 g/dL (12.0-15.5) Hematocrit 30.8 % (36.0-47.0) Mean Corpuscular Volume 89 fL (79-100) Mean Corpuscular Hemoglobin 29 pg (25-35) Mean Corpuscular Hemoglobin Concent 32 g/dL (31-37) Red Cell Distribution Width 13.5 % (11.5-14.5) Platelet Count 207 x10^3/uL (140-400) Neutrophils (%) (Auto) 90 % (31-73) Lymphocytes (%) (Auto) 9 % (24-48) Monocytes (%) (Auto) 1 % (0-9) Eosinophils (%) (Auto) 0 % (0-3) Basophils (%) (Auto) 0 % (0-3) Neutrophils # (Auto) 5.8 x10^3uL (1.8-7.7) Lymphocytes # (Auto) 0.6 x10^3/uL (1.0-4.8) Monocytes # (Auto) 0.1 x10^3/uL (0.0-1.1) Eosinophils # (Auto) 0.0 x10^3/uL (0.0-0.7) Basophils # (Auto) 0.0 x10^3/uL (0.0-0.2) Segmented Neutrophils % 88 % (35-66) Band Neutrophils % 2 % (0-9) Lymphocytes % 10 % (24-48) Platelet Estimate Adequate (ADEQUATE) Sodium Level 138 mmol/L (136-145) Potassium Level 4.6 mmol/L (3.5-5.1) Chloride Level 102 mmol/L (98-107) Carbon Dioxide Level 27 mmol/L (21-32) Anion Gap 9 (6-14) Blood Urea Nitrogen 16 mg/dL (7-20) Creatinine 1.0 mg/dL (0.6-1.0) Estimated GFR (Cockcroft-Gault) 56.0 Glucose Level 221 mg/dL (70-99) Calcium Level 8.9 mg/dL (8.5-10.1) Troponin I Quantitative < 0.017 ng/mL (0.000-0.055) Laboratory Tests Test 08/04/17 14:35 08/04/17 16:34 08/04/17 18:11 08/04/17 21:20 White Blood Count 7.4 x10^3/uL (4.0-11.0) Red Blood Count 3.85 x10^6/uL (3.50-5.40) Hemoglobin 11.0 g/dL (12.0-15.5) Hematocrit 34.4 % (36.0-47.0) Mean Corpuscular Volume 89 fL (79-100) Mean Corpuscular Hemoglobin 29 pg (25-35) Mean Corpuscular Hemoglobin Concent 32 g/dL (31-37) Red Cell Distribution Width 13.6 % (11.5-14.5) Platelet Count 222 x10^3/uL (140-400) Neutrophils (%) (Auto) 73 % (31-73) Lymphocytes (%) (Auto) 18 % (24-48) Monocytes (%) (Auto) 7 % (0-9) Eosinophils (%) (Auto) 1 % (0-3) Basophils (%) (Auto) 1 % (0-3) Neutrophils # (Auto) 5.4 x10^3uL (1.8-7.7) Lymphocytes # (Auto) 1.3 x10^3/uL (1.0-4.8) Monocytes # (Auto) 0.5 x10^3/uL (0.0-1.1) Eosinophils # (Auto) 0.1 x10^3/uL (0.0-0.7) Basophils # (Auto) 0.0 x10^3/uL (0.0-0.2) Sodium Level 139 mmol/L (136-145) Potassium Level 4.9 mmol/L (3.5-5.1) Chloride Level 102 mmol/L (98-107) Carbon Dioxide Level 30 mmol/L (21-32) Anion Gap 7 (6-14) Blood Urea Nitrogen 11 mg/dL (7-20) Creatinine 1.0 mg/dL (0.6-1.0) Estimated GFR (Cockcroft-Gault) 56.0 Glucose Level 171 mg/dL (70-99) Calcium Level 9.1 mg/dL (8.5-10.1) Total Bilirubin 0.4 mg/dL (0.2-1.0) Direct Bilirubin 0.1 mg/dL (0.0-0.2) Aspartate Amino Transf (AST/SGOT) 22 U/L (15-37) Alanine Aminotransferase (ALT/SGPT) 24 U/L (14-59) Alkaline Phosphatase 84 U/L (46-116) Troponin I Quantitative < 0.017 ng/mL (0.000-0.055) < 0.017 ng/mL (0.000-0.055) AY-Jiy-H-Type Natriuretic Peptide 379 pg/mL (0-124) Total Protein 7.7 g/dL (6.4-8.2) Albumin 3.6 g/dL (3.4-5.0) Lipase 133 U/L (73-393) O2 Saturation 98 % (92-99) Arterial Blood pH 7.38 (7.35-7.45) Arterial Blood pCO2 at Patient Temp 46 mmHg (35-46) Arterial Blood pO2 at Patient Temp 116 mmHg (65-108) Arterial Blood HCO3 26 mmol/L (21-28) Arterial Blood Base Excess 1 mmol/L (-3-3) Oxyhemoglobin 96.8 % Methemoglobin 0.5 % (0.0-1.9) Carbon Monoxide, Quantitative 0.3 % (0.0-1.9) FiO2 30 Glucose (Fingerstick) 248 mg/dL (70-99) Test 08/04/17 21:26 08/05/17 03:30 Glucose (Fingerstick) 288 mg/dL (70-99) White Blood Count 6.4 x10^3/uL (4.0-11.0) Red Blood Count 3.47 x10^6/uL (3.50-5.40) Hemoglobin 10.0 g/dL (12.0-15.5) Hematocrit 30.8 % (36.0-47.0) Mean Corpuscular Volume 89 fL (79-100) Mean Corpuscular Hemoglobin 29 pg (25-35) Mean Corpuscular Hemoglobin Concent 32 g/dL (31-37) Red Cell Distribution Width 13.5 % (11.5-14.5) Platelet Count 207 x10^3/uL (140-400) Neutrophils (%) (Auto) 90 % (31-73) Lymphocytes (%) (Auto) 9 % (24-48) Monocytes (%) (Auto) 1 % (0-9) Eosinophils (%) (Auto) 0 % (0-3) Basophils (%) (Auto) 0 % (0-3) Neutrophils # (Auto) 5.8 x10^3uL (1.8-7.7) Lymphocytes # (Auto) 0.6 x10^3/uL (1.0-4.8) Monocytes # (Auto) 0.1 x10^3/uL (0.0-1.1) Eosinophils # (Auto) 0.0 x10^3/uL (0.0-0.7) Basophils # (Auto) 0.0 x10^3/uL (0.0-0.2) Segmented Neutrophils % 88 % (35-66) Band Neutrophils % 2 % (0-9) Lymphocytes % 10 % (24-48) Platelet Estimate Adequate (ADEQUATE) Sodium Level 138 mmol/L (136-145) Potassium Level 4.6 mmol/L (3.5-5.1) Chloride Level 102 mmol/L (98-107) Carbon Dioxide Level 27 mmol/L (21-32) Anion Gap 9 (6-14) Blood Urea Nitrogen 16 mg/dL (7-20) Creatinine 1.0 mg/dL (0.6-1.0) Estimated GFR (Cockcroft-Gault) 56.0 Glucose Level 221 mg/dL (70-99) Calcium Level 8.9 mg/dL (8.5-10.1) Troponin I Quantitative < 0.017 ng/mL (0.000-0.055) Medications Active Scripts Medications Dose Route/Sig Max Daily Dose Days Date Category Dose Instructions Prednisone 10 Mg Tablet 10 Mg PO UD 07/14/17 Rx Take 3 tablets by mouth twice a day for 3 days, then take 2 tablets by mouth twice a day for 3 days, then take 1 tablet by mouth twice a day for 3 days, then take 1 tablet by mouth daily x 3 days, then stop. Duoneb 0.5-3(2.5) Mg/3 Ml (Albuterol/Ipratropium) 3 Ml Ampul.neb 3 Ml NEB QID 30 07/14/17 Rx Spironolactone 50 Mg Tablet 1 Tab PO DAILY 07/01/17 Rx Duoneb 0.5-3(2.5) Mg/3 Ml (Albuterol/Ipratropium) 3 Ml Ampul.neb 3 Ml NEB RTQID 30 07/01/17 Rx Citalopram Hbr (Citalopram Hydrobromide) 40 Mg Tablet 40 Mg PO DAILY 8/4/17 Reported Diovan (Valsartan) 160 Mg Tablet 160 Mg PO DAILY 06/28/17 Reported Valacyclovir (Valacyclovir Hcl) 500 Mg Tablet 500 Mg PO BID 06/28/17 Reported Amlodipine Besylate 2.5 Mg Tablet 5 Mg PO DAILY 30 02/12/17 Rx Atorvastatin Calcium 20 Mg Tablet 20 Mg PO DAILY 09/19/16 Reported Isosorbide Mononitrate Er (Isosorbide Mononitrate) 30 Mg Tab.er.24h 30 Mg PO DAILY 09/19/16 Reported Levothyroxine Sodium 88 Mcg Tablet 88 Mcg PO DAILY06 09/19/16 Reported Carafate (Sucralfate) 1 Gm Tablet 1 Gm PO QIDACHS 30 06/26/16 Rx Nexium Capsule (Esomeprazole Magnesium) 40 Mg Capsule.dr 1 Cap PO DAILY 06/24/16 Reported Metoprolol Succinate ( Xl ) (Metoprolol Succinate) 25 Mg Tab.er.24h 2 Tab PO DAILY 06/24/16 Reported Aspir 81 (Aspirin) 81 Mg Tablet.dr 1 Tab PO DAILY 11/22/15 Reported Effient (Prasugrel Hcl) 10 Mg Tablet 10 Mg PO DAILYWBKFT 11/22/15 Rx Fenofibrate (Fenofibrate Nanocrystallized) 145 Mg Tablet 160 Mg PO DAILY 06/19/14 Reported Metformin Hcl 1,000 Mg Tablet 1,000 Mg PO BID 03/20/14 Reported Impression . FULL CONSULT DICTATED AECOPD WILL CHECK VENOUS DOPPLER LOWER EXT SLICK BARNHART MD Aug 05, 2017 10:25
[2017-08-05] MEDS ORDERED: ALBUTEROL SULFATE 2.5 MG/3 ML NEBU. NEB PRN (10:30)
--- NOTE | 2017-08-05 11:00 | PDOC1 ---
History and Physical Date of Admission Date of Admission 08/04/17 Identification/Chief Complaint Chief Complaint SOB Problems: Source Source: Patient History of Present Illness History of Present Illness 62-year-old female presenting to the emergency department today with worsening shortness of breath. She reports her shortness of breath started earlier this morning. It was not sudden in onset. It is worse with exertion and improved with rest but was gradually getting worse. In ER patient was found to be hypoxic and in extreme labored breathing she placed on BiPAP. She has mild chest pain that is intermittent. Nonradiating and not associated with any nausea vomiting diaphoresis. pt known to have COPD and has several previous admission for same, she had tripped on her O2 cord at home fell and bruised left knee significantly Past Medical History Cardiovascular: CAD, HTN, [place], Hyperlipidemia, Valve insufficiency, Pulmonary hypertension Pulmonary: COPD, Other CENTRAL NERVOUS SYSTEM: Carpal Tunnel Syndrome, Periperal neuropathy GI: GERD Heme/Onc: No pertinent hx Hepatobiliary: No pertinent hx Psych: Anxiety, Depression Rheumatologic: No pertinent hx Infectious disease: Herpes simplex2 Renal/: No pertinent hx, UTI, Urinary Incontinence Endocrine: Diabetes, Hypothyroidism, Osteoporosis Past Surgical History Past Surgical History: Cholecystectomy, Total knee replacement, Tubal Ligation , Hysterectomy, Other Family History Family History: Diabetes, Hypertension, Other Social History Smoke: Quit ALCOHOL: none Drugs: None Current Problem List Problem List Problems Medical Problems: (1) COPD exacerbation Status: Acute Current Medications Current Medications Current Medications Medications (Trade) Dose Ordered Sig/Juan Start Time Stop Time Status Last Admin Dose Admin Acetaminophen (Tylenol) 500 mg PRN QID PRN 08/04/17 15:45 Albuterol Sulfate (Ventolin Neb Soln) 2.5 mg PRN Q2HRS PRN 08/05/17 10:30 Albuterol/ Ipratropium (Duoneb) 3 ml RTQID 08/05/17 12:00 Amlodipine Besylate (Norvasc) 2.5 mg DAILY 08/04/17 16:00 08/05/17 08:49 2.5 MG Aspirin (Ecotrin) 81 mg DAILY 08/05/17 09:00 08/05/17 08:48 81 MG Atorvastatin Calcium (Lipitor) 20 mg QHS 08/04/17 21:00 08/04/17 21:20 20 MG Citalopram Hydrobromide (CeleXA) 40 mg DAILY 08/04/17 16:00 08/05/17 08:48 40 MG Dextrose (Dextrose 50%-Water Syringe) 12.5 gm PRN Q15MIN PRN 08/04/17 15:45 Fenofibrate (Lofibra) 134 mg DAILY 08/04/17 16:00 08/05/17 08:47 134 MG Insulin Aspart (NovoLOG) 0-9 UNITS QIDACHS 08/04/17 21:30 08/05/17 08:53 5 UNITS Isosorbide Mononitrate (Imdur) 30 mg DAILY 08/04/17 16:00 08/05/17 08:47 30 MG Labetalol HCl (Normodyne) 20 mg PRN Q2HR PRN 08/04/17 15:45 Levothyroxine Sodium (Synthroid) 88 mcg DAILY06 08/04/17 16:00 08/05/17 05:52 88 MCG Lorazepam (Ativan) 1 mg PRN Q6HRS PRN 08/04/17 18:30 08/04/17 18:49 1 MG Losartan Potassium (Cozaar) 100 mg DAILY 08/04/17 16:00 08/05/17 08:48 100 MG Metformin HCl (Glucophage) 1,000 mg BIDWMEALS 08/04/17 17:00 08/05/17 08:47 1,000 MG Methylprednisolone Sodium Succinate (SOLU-Medrol 40MG VIAL) 40 mg Q8HRS 08/04/17 22:00 08/04/17 22:00 DC Methylprednisolone Sodium Succinate (SOLU-Medrol 125MG VIAL) 60 mg Q8HRS 08/04/17 22:00 08/05/17 05:57 60 MG Metoprolol Succinate (Toprol Xl) 50 mg DAILY 08/04/17 16:00 08/05/17 08:47 50 MG Morphine Sulfate 2 mg PRN Q2HR PRN 08/04/17 18:30 Ondansetron HCl (Zofran) 4 mg PRN Q8HRS PRN 08/04/17 15:30 08/05/17 15:29 Pantoprazole Sodium (Protonix) 40 mg DAILYAC 08/04/17 16:00 08/05/17 08:46 40 MG Prasugrel (Effient) 10 mg DAILYWBKFT 08/04/17 16:00 08/05/17 08:48 10 MG Prednisone (Prednisone) 10 mg DAILY08 08/05/17 08:00 08/05/17 10:24 DC Spironolactone (Aldactone) 50 mg DAILY 08/04/17 16:00 08/05/17 08:48 50 MG Sucralfate (Carafate) 1 gm QIDACHS 08/04/17 16:30 08/05/17 08:46 1 GM Valacyclovir HCl (Valtrex) 500 mg BID 08/04/17 21:00 08/05/17 08:48 500 MG Allergies Allergies Allergies Coded Allergies Type Severity Reaction Last Updated Verified levofloxacin Allergy Intermediate Hives 03/05/17 Yes ROS Review of System CONSTITUTIONAL: No fever or chills EYES: No recent changes SKIN: No rash or itching but large bruise left knee CARDIOVASCULAR: see HPI no syncope, palpitations, or edema RESPIRATORY: see HPI GASTROINTESTINAL: No nausea, vomiting or abdominal pain NEUROLOGICAL: No headaches or weakness ENDOCRINE: No cold or heat intolerance GENITOURINARY: No urgency or frequency of urination she has base line stress incontinence MUSCULOSKELETAL: chronic mild back pain , no joint pain LYMPHATICS: No enlarged lymph nodes PSYCHIATRIC: some anxiety Physical Exam Physical Exam general Alert and oriented. HEENT: Head is normocephalic, atraumatic NECK: Supple. LUNGS: decrease BS, few wheezes HEART: RRR, Peripheral pulses intact ABDOMEN: Soft, nontender. Positive bowel sounds. EXTREMITIES: Without any cyanosis. NEUROLOGIC: Normal speech, normal tone PSYCHIATRIC: Normal affect, normal mood. SKIN: No ulcerations Vitals Vitals Vital Signs Date Time Temp Pulse Resp B/P (MAP) Pulse Ox O2 Delivery O2 Flow Rate FiO2 08/05/17 09:10 96 Nasal Cannula 2.5 08/05/17 09:00 90 20 146/73 (97) 08/05/17 07:00 98.5 98.5 Labs Labs Laboratory Tests Test 08/04/17 14:35 08/04/17 16:34 08/04/17 18:11 08/04/17 21:20 White Blood Count 7.4 x10^3/uL (4.0-11.0) Red Blood Count 3.85 x10^6/uL (3.50-5.40) Hemoglobin 11.0 g/dL (12.0-15.5) Hematocrit 34.4 % (36.0-47.0) Mean Corpuscular Volume 89 fL (79-100) Mean Corpuscular Hemoglobin 29 pg (25-35) Mean Corpuscular Hemoglobin Concent 32 g/dL (31-37) Red Cell Distribution Width 13.6 % (11.5-14.5) Platelet Count 222 x10^3/uL (140-400) Neutrophils (%) (Auto) 73 % (31-73) Lymphocytes (%) (Auto) 18 % (24-48) Monocytes (%) (Auto) 7 % (0-9) Eosinophils (%) (Auto) 1 % (0-3) Basophils (%) (Auto) 1 % (0-3) Neutrophils # (Auto) 5.4 x10^3uL (1.8-7.7) Lymphocytes # (Auto) 1.3 x10^3/uL (1.0-4.8) Monocytes # (Auto) 0.5 x10^3/uL (0.0-1.1) Eosinophils # (Auto) 0.1 x10^3/uL (0.0-0.7) Basophils # (Auto) 0.0 x10^3/uL (0.0-0.2) Sodium Level 139 mmol/L (136-145) Potassium Level 4.9 mmol/L (3.5-5.1) Chloride Level 102 mmol/L (98-107) Carbon Dioxide Level 30 mmol/L (21-32) Anion Gap 7 (6-14) Blood Urea Nitrogen 11 mg/dL (7-20) Creatinine 1.0 mg/dL (0.6-1.0) Estimated GFR (Cockcroft-Gault) 56.0 Glucose Level 171 mg/dL (70-99) Calcium Level 9.1 mg/dL (8.5-10.1) Total Bilirubin 0.4 mg/dL (0.2-1.0) Direct Bilirubin 0.1 mg/dL (0.0-0.2) Aspartate Amino Transf (AST/SGOT) 22 U/L (15-37) Alanine Aminotransferase (ALT/SGPT) 24 U/L (14-59) Alkaline Phosphatase 84 U/L (46-116) Troponin I Quantitative < 0.017 ng/mL (0.000-0.055) < 0.017 ng/mL (0.000-0.055) BJ-Aks-Q-Type Natriuretic Peptide 379 pg/mL (0-124) Total Protein 7.7 g/dL (6.4-8.2) Albumin 3.6 g/dL (3.4-5.0) Lipase 133 U/L (73-393) O2 Saturation 98 % (92-99) Arterial Blood pH 7.38 (7.35-7.45) Arterial Blood pCO2 at Patient Temp 46 mmHg (35-46) Arterial Blood pO2 at Patient Temp 116 mmHg (65-108) Arterial Blood HCO3 26 mmol/L (21-28) Arterial Blood Base Excess 1 mmol/L (-3-3) Oxyhemoglobin 96.8 % Methemoglobin 0.5 % (0.0-1.9) Carbon Monoxide, Quantitative 0.3 % (0.0-1.9) FiO2 30 Glucose (Fingerstick) 248 mg/dL (70-99) Test 08/04/17 21:26 08/05/17 03:30 Glucose (Fingerstick) 288 mg/dL (70-99) White Blood Count 6.4 x10^3/uL (4.0-11.0) Red Blood Count 3.47 x10^6/uL (3.50-5.40) Hemoglobin 10.0 g/dL (12.0-15.5) Hematocrit 30.8 % (36.0-47.0) Mean Corpuscular Volume 89 fL (79-100) Mean Corpuscular Hemoglobin 29 pg (25-35) Mean Corpuscular Hemoglobin Concent 32 g/dL (31-37) Red Cell Distribution Width 13.5 % (11.5-14.5) Platelet Count 207 x10^3/uL (140-400) Neutrophils (%) (Auto) 90 % (31-73) Lymphocytes (%) (Auto) 9 % (24-48) Monocytes (%) (Auto) 1 % (0-9) Eosinophils (%) (Auto) 0 % (0-3) Basophils (%) (Auto) 0 % (0-3) Neutrophils # (Auto) 5.8 x10^3uL (1.8-7.7) Lymphocytes # (Auto) 0.6 x10^3/uL (1.0-4.8) Monocytes # (Auto) 0.1 x10^3/uL (0.0-1.1) Eosinophils # (Auto) 0.0 x10^3/uL (0.0-0.7) Basophils # (Auto) 0.0 x10^3/uL (0.0-0.2) Segmented Neutrophils % 88 % (35-66) Band Neutrophils % 2 % (0-9) Lymphocytes % 10 % (24-48) Platelet Estimate Adequate (ADEQUATE) Sodium Level 138 mmol/L (136-145) Potassium Level 4.6 mmol/L (3.5-5.1) Chloride Level 102 mmol/L (98-107) Carbon Dioxide Level 27 mmol/L (21-32) Anion Gap 9 (6-14) Blood Urea Nitrogen 16 mg/dL (7-20) Creatinine 1.0 mg/dL (0.6-1.0) Estimated GFR (Cockcroft-Gault) 56.0 Glucose Level 221 mg/dL (70-99) Calcium Level 8.9 mg/dL (8.5-10.1) Troponin I Quantitative < 0.017 ng/mL (0.000-0.055) Laboratory Tests Test 08/04/17 14:35 08/04/17 16:34 08/04/17 18:11 08/04/17 21:20 White Blood Count 7.4 x10^3/uL (4.0-11.0) Red Blood Count 3.85 x10^6/uL (3.50-5.40) Hemoglobin 11.0 g/dL (12.0-15.5) Hematocrit 34.4 % (36.0-47.0) Mean Corpuscular Volume 89 fL (79-100) Mean Corpuscular Hemoglobin 29 pg (25-35) Mean Corpuscular Hemoglobin Concent 32 g/dL (31-37) Red Cell Distribution Width 13.6 % (11.5-14.5) Platelet Count 222 x10^3/uL (140-400) Neutrophils (%) (Auto) 73 % (31-73) Lymphocytes (%) (Auto) 18 % (24-48) Monocytes (%) (Auto) 7 % (0-9) Eosinophils (%) (Auto) 1 % (0-3) Basophils (%) (Auto) 1 % (0-3) Neutrophils # (Auto) 5.4 x10^3uL (1.8-7.7) Lymphocytes # (Auto) 1.3 x10^3/uL (1.0-4.8) Monocytes # (Auto) 0.5 x10^3/uL (0.0-1.1) Eosinophils # (Auto) 0.1 x10^3/uL (0.0-0.7) Basophils # (Auto) 0.0 x10^3/uL (0.0-0.2) Sodium Level 139 mmol/L (136-145) Potassium Level 4.9 mmol/L (3.5-5.1) Chloride Level 102 mmol/L (98-107) Carbon Dioxide Level 30 mmol/L (21-32) Anion Gap 7 (6-14) Blood Urea Nitrogen 11 mg/dL (7-20) Creatinine 1.0 mg/dL (0.6-1.0) Estimated GFR (Cockcroft-Gault) 56.0 Glucose Level 171 mg/dL (70-99) Calcium Level 9.1 mg/dL (8.5-10.1) Total Bilirubin 0.4 mg/dL (0.2-1.0) Direct Bilirubin 0.1 mg/dL (0.0-0.2) Aspartate Amino Transf (AST/SGOT) 22 U/L (15-37) Alanine Aminotransferase (ALT/SGPT) 24 U/L (14-59) Alkaline Phosphatase 84 U/L (46-116) Troponin I Quantitative < 0.017 ng/mL (0.000-0.055) < 0.017 ng/mL (0.000-0.055) ZC-Suv-H-Type Natriuretic Peptide 379 pg/mL (0-124) Total Protein 7.7 g/dL (6.4-8.2) Albumin 3.6 g/dL (3.4-5.0) Lipase 133 U/L (73-393) O2 Saturation 98 % (92-99) Arterial Blood pH 7.38 (7.35-7.45) Arterial Blood pCO2 at Patient Temp 46 mmHg (35-46) Arterial Blood pO2 at Patient Temp 116 mmHg (65-108) Arterial Blood HCO3 26 mmol/L (21-28) Arterial Blood Base Excess 1 mmol/L (-3-3) Oxyhemoglobin 96.8 % Methemoglobin 0.5 % (0.0-1.9) Carbon Monoxide, Quantitative 0.3 % (0.0-1.9) FiO2 30 Glucose (Fingerstick) 248 mg/dL (70-99) Test 08/04/17 21:26 08/05/17 03:30 Glucose (Fingerstick) 288 mg/dL (70-99) White Blood Count 6.4 x10^3/uL (4.0-11.0) Red Blood Count 3.47 x10^6/uL (3.50-5.40) Hemoglobin 10.0 g/dL (12.0-15.5) Hematocrit 30.8 % (36.0-47.0) Mean Corpuscular Volume 89 fL (79-100) Mean Corpuscular Hemoglobin 29 pg (25-35) Mean Corpuscular Hemoglobin Concent 32 g/dL (31-37) Red Cell Distribution Width 13.5 % (11.5-14.5) Platelet Count 207 x10^3/uL (140-400) Neutrophils (%) (Auto) 90 % (31-73) Lymphocytes (%) (Auto) 9 % (24-48) Monocytes (%) (Auto) 1 % (0-9) Eosinophils (%) (Auto) 0 % (0-3) Basophils (%) (Auto) 0 % (0-3) Neutrophils # (Auto) 5.8 x10^3uL (1.8-7.7) Lymphocytes # (Auto) 0.6 x10^3/uL (1.0-4.8) Monocytes # (Auto) 0.1 x10^3/uL (0.0-1.1) Eosinophils # (Auto) 0.0 x10^3/uL (0.0-0.7) Basophils # (Auto) 0.0 x10^3/uL (0.0-0.2) Segmented Neutrophils % 88 % (35-66) Band Neutrophils % 2 % (0-9) Lymphocytes % 10 % (24-48) Platelet Estimate Adequate (ADEQUATE) Sodium Level 138 mmol/L (136-145) Potassium Level 4.6 mmol/L (3.5-5.1) Chloride Level 102 mmol/L (98-107) Carbon Dioxide Level 27 mmol/L (21-32) Anion Gap 9 (6-14) Blood Urea Nitrogen 16 mg/dL (7-20) Creatinine 1.0 mg/dL (0.6-1.0) Estimated GFR (Cockcroft-Gault) 56.0 Glucose Level 221 mg/dL (70-99) Calcium Level 8.9 mg/dL (8.5-10.1) Troponin I Quantitative < 0.017 ng/mL (0.000-0.055) VTE Prophylaxis Ordered VTE Prophylaxis Devices: Yes VTE Pharmacological Prophylaxi: Yes Assessment/Plan Assessment/Plan 1- acute on chronic respiratory failure due to COPD exacerbation, agree with venous doppler to R/O DVT with hx of recent trauma and pain , bruise , swelling LLE 2- DM II 3-pulmonary HTN 4- chronic diastolic CHF 5-CAD appreciate pulmonary help , continue steroid and bronchodilators , monitor BS, R /O DVT, Bipap as needed AURA TEJEDA MD Aug 05, 2017 11:00
--- NOTE | 2017-08-05 14:46 | RAD ---
Indication shortness of air. Grayscale color Doppler and spectral imaging was performed. Examination was targeted to the veins of the lower extremities. Bilaterally the common femoral, femoral and popliteal systems demonstrate normal flow compressibility and augmentation. No filling defects are seen. The visualized calf veins, bilaterally, appeared normal. IMPRESSION: Negative bilateral lower extremity venous analysis for DVT
[2017-08-05] MEDS: MORPHINE SULFATE 2 MG/ML DISP.SYRIN. IV PRN ×2 (17:20→20:54)
[2017-08-05] MEDS: ATORVASTATIN CALCIUM 20 MG TABLET PO SCH (20:53)
[2017-08-05] MEDS ORDERED: INSULIN DETEMIR 300 UNITS/3 ML INSULN.PEN. SQ SCH (21:00)
--- NOTE | 2017-08-05 22:08 | CONS ---
DATE OF CONSULTATION: 08/05/2017 ATTENDING PHYSICIAN: Teo Waldrop MD REASON FOR CONSULTATION: The patient seen in pulmonary consultation at the request of Dr. Waldrop for acute on chronic respiratory failure. HISTORY OF PRESENT ILLNESS: The patient is a 62-year-old that presented with a 4-day history of increasing shortness of breath, wheezing, cough, mostly nonproductive, no chest pain or pressure, no fever, chills or night sweats. She was evaluated in the Emergency Room, chest x-ray was obtained. I personally reviewed the x-ray. I do not appreciate any acute infiltrates. The patient was in severe respiratory distress, utilizing accessory muscles. She was placed on BiPAP and admitted to the intensive care unit. Her initial blood gas revealed a pH of 7.38, PaCO2 of 47, PaO2 of 91 on 30%. Repeat arterial blood gas on BiPAP revealed a pH of 7.38, PaCO2 of 46, pO2 of 116. White count was normal. Electrolytes were noted. PAST MEDICAL HISTORY: Chronic respiratory failure, COPD, oxygen dependent at 3 liters at home, tobacco dependence, quit in 2001, prior history of DVT and pulmonary embolism, type 2 diabetes, dyslipidemia, hypertension, hypothyroidism, coronary artery disease with previous myocardial infarction. PAST SURGICAL HISTORY: Status post knee replacement and spinal fusion. ALLERGIES: Listed to LEVAQUIN. REVIEW OF SYSTEMS: As indicated above, otherwise, a 10-point system was reviewed and negative. FAMILY HISTORY: Noncontributory. SOCIAL HISTORY: Socially, she quit tobacco in 2002. CURRENT MEDICATIONS: List was reviewed. HOME MEDICATION: List was likewise reviewed. PHYSICAL EXAMINATION: GENERAL: The patient was in the intensive care unit, currently off the BiPAP, appeared to be in no respiratory distress. HEENT: Eyes, the sclerae were nonicteric. NECK: Jugular venous distention was not elevated. No lymphadenopathy. CHEST: Full expansion. LUNGS: Adequate airway flow with mild expiratory wheeze. CARDIOVASCULAR: Regular rate and rhythm with S1, S2, no S3. ABDOMEN: Soft, nontender, nondistended. EXTREMITIES: No clubbing, cyanosis or edema. NEUROLOGIC: The patient was awake, alert, following commands. A detailed neuro exam was not performed. IMPRESSION: 1. Acute on chronic respiratory failure. 2. Acute exacerbation of chronic obstructive pulmonary disease. 3. Recent fall. The patient tripped over her oxygen cord. 4. Coronary artery disease with previous myocardial infarction. 5. Tobacco dependence in remission. 6. Type 2 diabetes. 7. History of deep venous thrombosis, pulmonary embolism. PLAN: 1. We will continue current medical management for acute exacerbation of COPD. 2. Obtain venous Dopplers of the lower extremities. 3. P.r.n. BiPAP. 4. Nebulized treatments. 5. DVT and GI prophylaxis. 6. Monitor blood sugar. 7. Okay to transfer out of the Intensive Care Unit, the patient has improved. I do appreciate the privilege in sharing in the patient's care. SLICK BARNHART MD DR: DEVORA/paul JOB#: [id number] / [id number]
[2017-08-06 03:00] VITALS: BP 119/68
[2017-08-06 05:37] LABS: HEMATOCRIT 29.3 % (36.0-47.0); HEMOGLOBIN 9.8 g/dL (12.0-15.5); RED BLOOD COUNT 3.37 x10^6/uL (3.50-5.40); RED CELL DISTRIBUTION WIDTH 13.7 % (11.5-14.5); WHITE BLOOD COUNT 9.7 x10^3/uL (4.0-11.0)
[2017-08-06] MEDS: methylPREDNISolone SOD SUCC PF 125 MG/2 ML VIAL. IV SCH ×3 (05:47→20:40)
[2017-08-06] MEDS: LEVOTHYROXINE 88 MCG TABLET PO SCH (05:47)
[2017-08-06 06:05] LABS: CALCIUM 9.2 mg/dL (8.5-10.1); POTASSIUM 4.7 mmol/L (3.5-5.1)
[2017-08-06 07:00] VITALS: BP_SYST 138; BP_SYST 139; BP_DIAS 62; BP_DIAS 74
[2017-08-06] MEDS: IPRATRPIUM/ALBUTEROL 0.5/2.5MG 3 ML NEBU. NEB SCH ×4 (07:52→19:19)
[2017-08-06] MEDS: MORPHINE SULFATE 2 MG/ML DISP.SYRIN. IV PRN ×2 (08:54→20:41)
--- NOTE | 2017-08-06 09:01 | EKG ---
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
[2017-08-06] MEDS: PANTOPRAZOLE 40 MG TABLET.DR. PO SCH (09:16)
[2017-08-06] MEDS: PRASUGREL 10 MG TABLET. PO SCH (09:17)
[2017-08-06] MEDS: valACYclovir 500 MG TABLET. PO SCH ×2 (09:18→20:39)
[2017-08-06] MEDS: LOSARTAN POTASSIUM 50 MG TABLET. PO SCH (09:20)
[2017-08-06] MEDS: SUCRALFATE 1 GM TABLET. PO SCH ×4 (09:21→20:39)
[2017-08-06] MEDS: ASPIRIN ENTERIC COATED 81 MG TABLET.DR. PO SCH (09:21)
[2017-08-06] MEDS: amLODIPine BESYLATE 2.5 MG TABLET PO SCH (09:21)
[2017-08-06] MEDS: FENOFIBRATE,MICRONIZED 134 MG CAPSULE PO SCH (09:22)
[2017-08-06] MEDS: SPIRONOLACTONE 25 MG TABLET PO SCH (09:22)
[2017-08-06] MEDS: CITALOPRAM 20 MG TABLET. PO SCH (09:22)
[2017-08-06] MEDS: ISOSORBIDE MONONITRATE ER 30 MG TAB.ER.24H PO SCH (09:23)
[2017-08-06] MEDS: METOPROLOL SUCC 24HR ER 50 MG TAB.ER.24H. PO SCH (09:25)
[2017-08-06] MEDS: INSULIN ASPART 300 UNITS/3 ML INSULN.PEN SQ SCH ×4 (09:36→20:48)
--- NOTE | 2017-08-06 09:58 | PDOC ---
SUBJECTIVE Subjective Rapid response was called this morning to due to episode of chest pain while she is talking on the phone, she denies anxiety or stress to promote the chest pain seems that it was acute and more musculoskeletal and sharp pain, her troponin has been negative and cardiology were consulted, her shortness of breasts is a stable OBJECTIVE Vital Signs Vital Signs Date Time Temp Pulse Resp B/P (MAP) Pulse Ox O2 Delivery O2 Flow Rate FiO2 08/06/17 09:25 99 147/77 08/06/17 09:23 93 164/65 08/06/17 09:21 96 164/65 08/06/17 09:20 95 164/65 08/06/17 08:54 96 Nasal Cannula 3.0 08/06/17 07:53 98 Nasal Cannula 2.0 08/06/17 07:00 97.5 89 17 139/62 (87) 98 Nasal Cannula 3.0 97.5 08/06/17 03:00 97.9 96 18 119/68 (85) 97 Nasal Cannula 3.0 97.9 08/05/17 23:00 97.9 97 18 125/60 (81) 93 Nasal Cannula 3.0 97.9 08/05/17 21:20 18 94 Nasal Cannula 2.5 08/05/17 20:54 18 94 Nasal Cannula 2.5 08/05/17 20:02 Nasal Cannula 2.5 08/05/17 19:15 Nasal Cannula 3.0 08/05/17 19:00 98.1 99 16 120/59 (79) 94 Nasal Cannula 3.0 98.1 08/05/17 17:23 97 Nasal Cannula 2.5 08/05/17 17:20 20 95 Nasal Cannula 3.0 08/05/17 15:45 Nasal Cannula 3.0 08/05/17 15:00 98.1 98 16 120/65 (83) 97 Nasal Cannula 3.0 98.1 08/05/17 12:40 98 Nasal Cannula 2.5 08/05/17 12:13 98.5 102 16 138/66 (90) 99 Nasal Cannula 3.0 98.5 08/05/17 11:00 98.5 102 20 146/72 (96) 99 Nasal Cannula 3.0 98.5 08/05/17 10:00 100 20 101/63 (76) 99 Nasal Cannula 3.0 PHYSICAL EXAM Physical Exam Her lungs with decrease wheezing and better air movement Heart regular rate and rhythm Abdomen soft and nontender Extremities no edema ASSESSMENT/PLAN Assessment/Plan 1- chest pain likely musculoskeletal, obtain serial troponin and cardiac consult 1- acute on chronic respiratory failure due to COPD exacerbation, venous doppler lower ext negative for DVT, continue bronchodilators and steroid 2- DM II worsening due to steroids will increase bedtime basal insulin 3-pulmonary HTN 4- chronic diastolic CHF 5-CAD will ask cardiology to follow Problems: COMMENT Lab Laboratory Tests Test 08/05/17 12:05 08/05/17 16:44 08/05/17 20:45 08/06/17 05:10 Glucose (Fingerstick) 206 mg/dL (70-99) 229 mg/dL (70-99) 236 mg/dL (70-99) White Blood Count 9.7 x10^3/uL (4.0-11.0) Red Blood Count 3.37 x10^6/uL (3.50-5.40) Hemoglobin 9.8 g/dL (12.0-15.5) Hematocrit 29.3 % (36.0-47.0) Mean Corpuscular Volume 87 fL (79-100) Mean Corpuscular Hemoglobin 29 pg (25-35) Mean Corpuscular Hemoglobin Concent 33 g/dL (31-37) Red Cell Distribution Width 13.7 % (11.5-14.5) Platelet Count 231 x10^3/uL (140-400) Sodium Level 138 mmol/L (136-145) Potassium Level 4.7 mmol/L (3.5-5.1) Chloride Level 102 mmol/L (98-107) Carbon Dioxide Level 29 mmol/L (21-32) Anion Gap 7 (6-14) Blood Urea Nitrogen 26 mg/dL (7-20) Creatinine 1.0 mg/dL (0.6-1.0) Estimated GFR (Cockcroft-Gault) 56.0 Glucose Level 263 mg/dL (70-99) Calcium Level 9.2 mg/dL (8.5-10.1) Test 08/06/17 08:03 Glucose (Fingerstick) 241 mg/dL (70-99) AURA TEJEDA MD Aug 06, 2017 09:58
[2017-08-06 11:00] VITALS: BP 157/88
--- NOTE | 2017-08-06 12:06 | PDOC2 ---
SPENSER LAM CASHIER OR CHECKER STOCK CLERK 08/06/17 1206: CARDIAC CONSULT DATE OF CONSULT Date of Consult DATE: 08/06/17 TIME: 11:52 REASON FOR CONSULT Reason for Consult: CP, rapid response REFERRING PHYSICIAN Referring Physician: Palma SOURCE Source: Chart review, Patient HISTORY OF PRESENT ILLNESS HISTORY OF PRESENT ILLNESS This is a pleasant 62 yo female admitted for complains of increasing SOA. Initially she was placed on bipap which she then improved and presently via NC.Her SOA has improved. Rapid response was called today due to CP. She was talking to her daughter when she felt this sharp pain to her right shoulder blade region that radiated to her chest. This was a shooting discomfort that is duplicated with palpation. She panicked and got anxious. Presently she feels better. There was no associated palpitations, nausea or diaphoresis. She is currently eating lunch. She was given morphine and her discomfort is a lot better. To add she did got entangled on her oxygen tubing at home and fell last Saturday landed to her right knee then to her back. PAST MEDICAL HISTORY Past Medical History Cardiovascular: CAD, HTN, OR, Hyperlipidemia Pulmonary: COPD (O2 dependent ), Other (PE/DVT, JESUS) GI: GERD, diverticulosis Heme/Onc: Anemia Hepatobiliary: BARILLAS Psych: Anxiety, Depression Musculoskeletal: Osteoarthritis, Other (thoracic compression fracture), fall, osteopenia Rheumatologic: No pertinent hx Infectious disease: shingles? ENT: No pertinent hx Renal/: CKD Endocrine: Diabetes 2, Hypothyroidism Neuro: DPN, CTS PAST SURGICAL HISTORY Past Surgical History right knee replacement, thoracic spinal fusion, tubal ligation, s/p PCI/BMS to OM1 FAMILY HISTORY Family History noncontributory to CV SOCIAL HISTORY Smoke: No ALCOHOL: none Drugs: None Lives: with Family CURRENT MEDICATIONS CURRENT MEDICATIONS Current Medications Medications (Trade) Dose Ordered Sig/Juan Route PRN Reason Start Time Stop Time Status Last Admin Dose Admin Albuterol/ Ipratropium (Duoneb) 3 ml RTQID NEB 08/05/17 12:00 08/06/17 07:52 Insulin Detemir (Levemir) 5 units QHS SQ 08/05/17 21:00 08/06/17 09:35 DC 08/05/17 21:00 ALLERGIES ALLERGIES: Coded Allergies: levofloxacin (Verified Allergy, Intermediate, Hives, 03/05/17) ROS Review of System 14 point ROS evaluated with pertinent positives noted per HPI PHYSICAL EXAM General: Alert, Oriented X3, Cooperative, mild distress HEENT: Atraumatic, Mucous membr. moist/pink Lungs: Other (diminished) Heart: Regular rate (SR), Normal S1, Normal S2, Other (distant heart sounds) Abdomen: Soft, No tenderness, Other (truncal obesity) Skin: No breakdown, Other (right knee abrasion) Neuro: Normal speech, Sensation intact Psych/Mental Status: Mental status NL, Mood NL MUSCULOSKELETAL: Osteoarthritic changes both hands VITALS VITALS Vital Signs Date Time Temp Pulse Resp B/P (MAP) Pulse Ox O2 Delivery O2 Flow Rate FiO2 08/06/17 11:00 97.9 96 14 157/88 (111) 98 Room Air 97.9 08/06/17 10:00 3.0 LABS Lab: Laboratory Tests Test 08/05/17 12:05 08/05/17 16:44 08/05/17 20:45 08/06/17 05:10 Glucose (Fingerstick) 206 mg/dL (70-99) 229 mg/dL (70-99) 236 mg/dL (70-99) White Blood Count 9.7 x10^3/uL (4.0-11.0) Red Blood Count 3.37 x10^6/uL (3.50-5.40) Hemoglobin 9.8 g/dL (12.0-15.5) Hematocrit 29.3 % (36.0-47.0) Mean Corpuscular Volume 87 fL (79-100) Mean Corpuscular Hemoglobin 29 pg (25-35) Mean Corpuscular Hemoglobin Concent 33 g/dL (31-37) Red Cell Distribution Width 13.7 % (11.5-14.5) Platelet Count 231 x10^3/uL (140-400) Sodium Level 138 mmol/L (136-145) Potassium Level 4.7 mmol/L (3.5-5.1) Chloride Level 102 mmol/L (98-107) Carbon Dioxide Level 29 mmol/L (21-32) Anion Gap 7 (6-14) Blood Urea Nitrogen 26 mg/dL (7-20) Creatinine 1.0 mg/dL (0.6-1.0) Estimated GFR (Cockcroft-Gault) 56.0 Glucose Level 263 mg/dL (70-99) Calcium Level 9.2 mg/dL (8.5-10.1) Test 08/06/17 08:03 08/06/17 09:30 08/06/17 11:46 Glucose (Fingerstick) 241 mg/dL (70-99) 273 mg/dL (70-99) Troponin I Quantitative < 0.017 ng/mL (0.000-0.055) ECHOCARDIOGRAM ECHOCARDIOGRAM <Conclusion> Limited exam to rule out septal defect only. The interatrial septum is intact with no evidence for an atrial septal defect or patent foramen ovale as noted on 2-D or Doppler imaging. Injection of bubbles documented no interatrial shunt. DATE: 07/12/17 1626 <Conclusion> The left ventricular systolic function is normal. The Ejection Fraction is 55-60%. There is normal LV segmental wall motion. Transmitral Doppler flow pattern is Grade I-abnormal relaxation pattern. Trace aortic regurgitation. Mild tricuspid regurgitation. The pulmonary artery systolic pressure is estimated at 59 mmHg. There is moderate pulmonary hypertension. There is no evidence of significant pericardial effusion. DATE: 03/03/17 1739 STRESS TEST STRESS TEST Conclusion 1. No EKG evidence of stress-induced ischemia. 2. Nuclear imaging shows no reversible ischemia or infarct. 3. Normal left ventricular systolic function with an ejection fraction of greater than 70%. 4. Low risk Lexiscan nuclear stress test. DATE: 03/13/17 1404 HEART CATH HEART CATH PCI Technique Lesion Percutaneous coronary intervention was performed on the first obtuse marginal branch segment. Conclusion 1. Mildly elevated left ventricular filling pressure. 2. Low normal LV function. EF 50% 3. Mild MR 4. One vessel CAD s/p PCI to the OM1 with implantation of a Integrity BMS (3.0/ 18, dilated up to a 3.25mm stent). Recommendations Cardiac Rehabilitation Referral Aggressive Medical Therapy ASA 81mg daily Prasugrel 10mg daily for 30 days, then consider Plavix for 1 full year if tolerated. DATE: 11/21/15 1435 ASSESSMENT/PLAN ASSESSMENT/PLAN 1. Atypical Chest pain: troponin series normal, EKG SR without acute changes. Noncardiac. Reproducible. Suspect MSK/anxiety. 2. Accelerated HTN: labile 3. CAD; s/p PCI/BMS OM1 11/08, recent MPI 02/2017 unremarkable for ischemic process 4. AECOPD, O2 dependent 5. DM2/HLP 7. CKD3 8. Anxiety 9. Mechanical fall: right right knee abrasion. landed on knee then back 10. Hx of PE/DVT Recommendations 1. Follow pulmonary recommendations 2. Continue with current regimen including DAPT. Increase norvasc. 3. No further cardiac testing, will follow up as needed. Problems: MANISH AHMADI MD 08/06/17 1333: CARDIAC CONSULT ALLERGIES ALLERGIES: Coded Allergies: levofloxacin (Verified Allergy, Intermediate, Hives, 03/05/17) ASSESSMENT/PLAN ASSESSMENT/PLAN Pt. seen and examined. 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 She has had multiple admissions with chest pain and dyspnea. She has labile BP and anxiety. I think at this time given lack of any clear anginal symptoms, can defer further cardiac testing but if symptoms not better with BP and pulm treatment, will consider cath prior to DC. Thanks. Problems: SPENSER LAM APRN Aug 06, 2017 12:06 MANISH AHMADI MD Aug 06, 2017 13:33
[2017-08-06] MEDS ORDERED: amLODIPine BESYLATE 5 MG TABLET PO ONE (12:30)
[2017-08-06] MEDS ORDERED: amLODIPine BESYLATE 2.5 MG TABLET PO ONE (12:45)
[2017-08-06 14:40] VITALS: BP 113/64
--- NOTE | 2017-08-06 15:51 | PDOC ---
PULMONARY PROGRESS NOTES Vitals Vital Signs Date Time Temp Pulse Resp B/P (MAP) Pulse Ox O2 Delivery O2 Flow Rate FiO2 08/06/17 15:48 Nasal Cannula 2.0 08/06/17 14:40 97.5 89 16 113/64 (80) 94 97.5 HEENT: Other Labs Laboratory Tests Test 08/04/17 16:34 08/04/17 18:11 08/04/17 21:20 08/04/17 21:26 O2 Saturation 98 % (92-99) Arterial Blood pH 7.38 (7.35-7.45) Arterial Blood pCO2 at Patient Temp 46 mmHg (35-46) Arterial Blood pO2 at Patient Temp 116 mmHg (65-108) Arterial Blood HCO3 26 mmol/L (21-28) Arterial Blood Base Excess 1 mmol/L (-3-3) Oxyhemoglobin 96.8 % Methemoglobin 0.5 % (0.0-1.9) Carbon Monoxide, Quantitative 0.3 % (0.0-1.9) FiO2 30 Glucose (Fingerstick) 248 mg/dL (70-99) 288 mg/dL (70-99) Troponin I Quantitative < 0.017 ng/mL (0.000-0.055) Test 08/05/17 03:30 08/05/17 12:05 08/05/17 16:44 08/05/17 20:45 White Blood Count 6.4 x10^3/uL (4.0-11.0) Red Blood Count 3.47 x10^6/uL (3.50-5.40) Hemoglobin 10.0 g/dL (12.0-15.5) Hematocrit 30.8 % (36.0-47.0) Mean Corpuscular Volume 89 fL (79-100) Mean Corpuscular Hemoglobin 29 pg (25-35) Mean Corpuscular Hemoglobin Concent 32 g/dL (31-37) Red Cell Distribution Width 13.5 % (11.5-14.5) Platelet Count 207 x10^3/uL (140-400) Neutrophils (%) (Auto) 90 % (31-73) Lymphocytes (%) (Auto) 9 % (24-48) Monocytes (%) (Auto) 1 % (0-9) Eosinophils (%) (Auto) 0 % (0-3) Basophils (%) (Auto) 0 % (0-3) Neutrophils # (Auto) 5.8 x10^3uL (1.8-7.7) Lymphocytes # (Auto) 0.6 x10^3/uL (1.0-4.8) Monocytes # (Auto) 0.1 x10^3/uL (0.0-1.1) Eosinophils # (Auto) 0.0 x10^3/uL (0.0-0.7) Basophils # (Auto) 0.0 x10^3/uL (0.0-0.2) Segmented Neutrophils % 88 % (35-66) Band Neutrophils % 2 % (0-9) Lymphocytes % 10 % (24-48) Platelet Estimate Adequate (ADEQUATE) Sodium Level 138 mmol/L (136-145) Potassium Level 4.6 mmol/L (3.5-5.1) Chloride Level 102 mmol/L (98-107) Carbon Dioxide Level 27 mmol/L (21-32) Anion Gap 9 (6-14) Blood Urea Nitrogen 16 mg/dL (7-20) Creatinine 1.0 mg/dL (0.6-1.0) Estimated GFR (Cockcroft-Gault) 56.0 Glucose Level 221 mg/dL (70-99) Calcium Level 8.9 mg/dL (8.5-10.1) Troponin I Quantitative < 0.017 ng/mL (0.000-0.055) Glucose (Fingerstick) 206 mg/dL (70-99) 229 mg/dL (70-99) 236 mg/dL (70-99) Test 08/06/17 05:10 08/06/17 08:03 08/06/17 09:30 08/06/17 11:46 White Blood Count 9.7 x10^3/uL (4.0-11.0) Red Blood Count 3.37 x10^6/uL (3.50-5.40) Hemoglobin 9.8 g/dL (12.0-15.5) Hematocrit 29.3 % (36.0-47.0) Mean Corpuscular Volume 87 fL (79-100) Mean Corpuscular Hemoglobin 29 pg (25-35) Mean Corpuscular Hemoglobin Concent 33 g/dL (31-37) Red Cell Distribution Width 13.7 % (11.5-14.5) Platelet Count 231 x10^3/uL (140-400) Sodium Level 138 mmol/L (136-145) Potassium Level 4.7 mmol/L (3.5-5.1) Chloride Level 102 mmol/L (98-107) Carbon Dioxide Level 29 mmol/L (21-32) Anion Gap 7 (6-14) Blood Urea Nitrogen 26 mg/dL (7-20) Creatinine 1.0 mg/dL (0.6-1.0) Estimated GFR (Cockcroft-Gault) 56.0 Glucose Level 263 mg/dL (70-99) Calcium Level 9.2 mg/dL (8.5-10.1) Glucose (Fingerstick) 241 mg/dL (70-99) 273 mg/dL (70-99) Troponin I Quantitative < 0.017 ng/mL (0.000-0.055) Laboratory Tests Test 08/05/17 16:44 08/05/17 20:45 08/06/17 05:10 08/06/17 08:03 Glucose (Fingerstick) 229 mg/dL (70-99) 236 mg/dL (70-99) 241 mg/dL (70-99) White Blood Count 9.7 x10^3/uL (4.0-11.0) Red Blood Count 3.37 x10^6/uL (3.50-5.40) Hemoglobin 9.8 g/dL (12.0-15.5) Hematocrit 29.3 % (36.0-47.0) Mean Corpuscular Volume 87 fL (79-100) Mean Corpuscular Hemoglobin 29 pg (25-35) Mean Corpuscular Hemoglobin Concent 33 g/dL (31-37) Red Cell Distribution Width 13.7 % (11.5-14.5) Platelet Count 231 x10^3/uL (140-400) Sodium Level 138 mmol/L (136-145) Potassium Level 4.7 mmol/L (3.5-5.1) Chloride Level 102 mmol/L (98-107) Carbon Dioxide Level 29 mmol/L (21-32) Anion Gap 7 (6-14) Blood Urea Nitrogen 26 mg/dL (7-20) Creatinine 1.0 mg/dL (0.6-1.0) Estimated GFR (Cockcroft-Gault) 56.0 Glucose Level 263 mg/dL (70-99) Calcium Level 9.2 mg/dL (8.5-10.1) Test 08/06/17 09:30 08/06/17 11:46 Troponin I Quantitative < 0.017 ng/mL (0.000-0.055) Glucose (Fingerstick) 273 mg/dL (70-99) Medications Active Scripts Medications Dose Route/Sig Max Daily Dose Days Date Category Dose Instructions Prednisone 10 Mg Tablet 10 Mg PO UD 07/14/17 Rx Take 3 tablets by mouth twice a day for 3 days, then take 2 tablets by mouth twice a day for 3 days, then take 1 tablet by mouth twice a day for 3 days, then take 1 tablet by mouth daily x 3 days, then stop. Duoneb 0.5-3(2.5) Mg/3 Ml (Albuterol/Ipratropium) 3 Ml Ampul.neb 3 Ml NEB QID 30 07/14/17 Rx Spironolactone 50 Mg Tablet 1 Tab PO DAILY 07/01/17 Rx Duoneb 0.5-3(2.5) Mg/3 Ml (Albuterol/Ipratropium) 3 Ml Ampul.neb 3 Ml NEB RTQID 30 07/01/17 Rx Citalopram Hbr (Citalopram Hydrobromide) 40 Mg Tablet 40 Mg PO DAILY 06/28/17 Reported Diovan (Valsartan) 160 Mg Tablet 160 Mg PO DAILY 06/28/17 Reported Valacyclovir (Valacyclovir Hcl) 500 Mg Tablet 500 Mg PO BID 06/28/17 Reported Amlodipine Besylate 2.5 Mg Tablet 5 Mg PO DAILY 30 02/12/17 Rx Atorvastatin Calcium 20 Mg Tablet 20 Mg PO DAILY 09/19/16 Reported Isosorbide Mononitrate Er (Isosorbide Mononitrate) 30 Mg Tab.er.24h 30 Mg PO DAILY 09/19/16 Reported Levothyroxine Sodium 88 Mcg Tablet 88 Mcg PO DAILY06 09/19/16 Reported Carafate (Sucralfate) 1 Gm Tablet 1 Gm PO QIDACHS 30 06/26/16 Rx Nexium Capsule (Esomeprazole Magnesium) 40 Mg Capsule.dr 1 Cap PO DAILY 06/24/16 Reported Metoprolol Succinate ( Xl ) (Metoprolol Succinate) 25 Mg Tab.er.24h 2 Tab PO DAILY 06/24/16 Reported Aspir 81 (Aspirin) 81 Mg Tablet.dr 1 Tab PO DAILY 11/22/15 Reported Effient (Prasugrel Hcl) 10 Mg Tablet 10 Mg PO DAILYWBKFT 11/22/15 Rx Fenofibrate (Fenofibrate Nanocrystallized) 145 Mg Tablet 160 Mg PO DAILY 06/19/14 Reported Metformin Hcl 1,000 Mg Tablet 1,000 Mg PO BID 03/20/14 Reported Impression . 1. Acute on chronic respiratory failure. 2. Acute exacerbation of chronic obstructive pulmonary disease. 3. Recent fall. The patient tripped over her oxygen cord. 4. Coronary artery disease with previous myocardial infarction. 5. Tobacco dependence in remission. 6. Type 2 diabetes. 7. History of deep venous thrombosis, pulmonary embolism. Plan . 1. We will continue current medical management for acute exacerbation of COPD. 2. venous Dopplers of the lower extremities NEGATIVE 3. P.r.n. BiPAP. 4. Nebulized treatments. 5. DVT and GI prophylaxis. 6. Monitor blood sugar. SLICK BARNHART MD Aug 06, 2017 15:51
[2017-08-06 19:00] VITALS: BP 130/67
[2017-08-06] MEDS: ATORVASTATIN CALCIUM 20 MG TABLET PO SCH (20:39)
[2017-08-06] MEDS ORDERED: INSULIN DETEMIR 300 UNITS/3 ML INSULN.PEN. SQ SCH (21:00)
[2017-08-06 23:11] VITALS: BP 136/65
[2017-08-07 03:00] VITALS: BP 146/83
[2017-08-07 05:59] LABS: HEMATOCRIT 30.1 % (36.0-47.0); HEMOGLOBIN 10.3 g/dL (12.0-15.5); RED BLOOD COUNT 3.44 x10^6/uL (3.50-5.40); RED CELL DISTRIBUTION WIDTH 13.8 % (11.5-14.5); WHITE BLOOD COUNT 8.6 x10^3/uL (4.0-11.0)
[2017-08-07] MEDS: methylPREDNISolone SOD SUCC PF 125 MG/2 ML VIAL. IV SCH ×2 (06:02→15:58)
[2017-08-07] MEDS: LEVOTHYROXINE 88 MCG TABLET PO SCH (06:02)
[2017-08-07 06:10] LABS: CALCIUM 9.1 mg/dL (8.5-10.1); CREATININE 1.2 mg/dL (0.6-1.0); GFR 45.4; POTASSIUM 5.1 mmol/L (3.5-5.1)
[2017-08-07 07:00] VITALS: BP 149/66
[2017-08-07] MEDS: PRASUGREL 10 MG TABLET. PO SCH (07:17)
[2017-08-07] MEDS: SUCRALFATE 1 GM TABLET. PO SCH ×3 (07:17→16:38)
[2017-08-07] MEDS: ISOSORBIDE MONONITRATE ER 30 MG TAB.ER.24H PO SCH (07:18)
[2017-08-07] MEDS: LOSARTAN POTASSIUM 50 MG TABLET. PO SCH (07:18)
[2017-08-07] MEDS: CITALOPRAM 20 MG TABLET. PO SCH (07:19)
[2017-08-07] MEDS: SPIRONOLACTONE 25 MG TABLET PO SCH (07:19)
[2017-08-07] MEDS: METOPROLOL SUCC 24HR ER 50 MG TAB.ER.24H. PO SCH (07:19)
[2017-08-07] MEDS: PANTOPRAZOLE 40 MG TABLET.DR. PO SCH (07:19)
[2017-08-07] MEDS: valACYclovir 500 MG TABLET. PO SCH (07:19)
[2017-08-07] MEDS: FENOFIBRATE,MICRONIZED 134 MG CAPSULE PO SCH (07:19)
[2017-08-07] MEDS: ASPIRIN ENTERIC COATED 81 MG TABLET.DR. PO SCH (07:20)
[2017-08-07] MEDS: INSULIN ASPART 300 UNITS/3 ML INSULN.PEN SQ SCH ×3 (07:26→16:42)
[2017-08-07] MEDS: IPRATRPIUM/ALBUTEROL 0.5/2.5MG 3 ML NEBU. NEB SCH ×3 (07:52→16:08)
[2017-08-07] MEDS ORDERED: amLODIPine BESYLATE 5 MG TABLET PO SCH (09:00)
--- NOTE | 2017-08-07 09:49 | PDOC ---
SUBJECTIVE Subjective feels much better , has been up to bathroom, active in her room , no pain and less SOB OBJECTIVE Vital Signs Vital Signs Date Time Temp Pulse Resp B/P (MAP) Pulse Ox O2 Delivery O2 Flow Rate FiO2 08/07/17 09:11 91 146/83 08/07/17 08:21 Room Air 3.0 08/07/17 07:52 98 Nasal Cannula 3.0 08/07/17 07:19 91 146/83 08/07/17 07:18 91 146/83 08/07/17 07:18 91 146/83 08/07/17 07:00 96.6 94 16 149/66 (93) 97 Nasal Cannula 3.0 96.6 08/07/17 03:00 97.7 91 18 146/83 (104) 95 Nasal Cannula 3.0 97.7 08/06/17 23:11 97.5 87 19 136/65 (88) 98 Room Air 97.5 08/06/17 21:11 97 Room Air 2.5 08/06/17 20:41 97 Room Air 2.5 08/06/17 19:22 97 Nasal Cannula 2.5 08/06/17 19:10 Room Air 2.0 08/06/17 19:00 97.9 89 19 130/67 (88) 96 Room Air 97.9 08/06/17 15:48 Nasal Cannula 2.0 08/06/17 14:40 97.5 89 16 113/64 (80) 94 Room Air 97.5 08/06/17 12:49 96 157/88 08/06/17 12:48 96 157/88 08/06/17 11:59 Nasal Cannula 2.0 08/06/17 11:00 97.9 96 14 157/88 (111) 98 Room Air 97.9 08/06/17 10:26 Room Air I & O Intake and Output 08/08/17 07:00 Intake Total 180 ml Balance 180 ml Intake Oral 180 ml PHYSICAL EXAM Physical Exam lungs clesr heart RRR abd soft ext no edema ASSESSMENT/PLAN Assessment/Plan 1- chest pain likely musculoskeletal, appreciate cardiology input no further CP 1- acute on chronic respiratory failure due to COPD exacerbation, venous doppler lower ext negative for DVT, continue bronchodilators and steroid 2- DM II worsening due to steroids better with basal insulin 3-pulmonary HTN 4- chronic diastolic CHF 5-CAD she is much better , hope to decrease steroid and home when ok with pulmonary Problems: COMMENT Lab Laboratory Tests Test 08/06/17 11:46 08/06/17 16:43 08/06/17 20:39 08/07/17 05:10 Glucose (Fingerstick) 273 mg/dL (70-99) 185 mg/dL (70-99) 209 mg/dL (70-99) White Blood Count 8.6 x10^3/uL (4.0-11.0) Red Blood Count 3.44 x10^6/uL (3.50-5.40) Hemoglobin 10.3 g/dL (12.0-15.5) Hematocrit 30.1 % (36.0-47.0) Mean Corpuscular Volume 88 fL (79-100) Mean Corpuscular Hemoglobin 30 pg (25-35) Mean Corpuscular Hemoglobin Concent 34 g/dL (31-37) Red Cell Distribution Width 13.8 % (11.5-14.5) Platelet Count 254 x10^3/uL (140-400) Sodium Level 139 mmol/L (136-145) Potassium Level 5.1 mmol/L (3.5-5.1) Chloride Level 101 mmol/L (98-107) Carbon Dioxide Level 33 mmol/L (21-32) Anion Gap 5 (6-14) Blood Urea Nitrogen 31 mg/dL (7-20) Creatinine 1.2 mg/dL (0.6-1.0) Estimated GFR (Cockcroft-Gault) 45.4 Glucose Level 264 mg/dL (70-99) Calcium Level 9.1 mg/dL (8.5-10.1) Test 08/07/17 06:54 Glucose (Fingerstick) 250 mg/dL (70-99) AURA TEJEDA MD Aug 07, 2017 09:49
[2017-08-07 10:59] VITALS: BP 143/70
[2017-08-07 15:00] VITALS: BP 140/62
--- NOTE | 2017-08-07 15:25 | PDOC ---
PULMONARY PROGRESS NOTES Subjective PT BACK TO BASELINE READY FOR D/C Vitals Vital Signs Date Time Temp Pulse Resp B/P (MAP) Pulse Ox O2 Delivery O2 Flow Rate FiO2 08/07/17 15:00 96.8 89 16 140/62 (88) 96 Nasal Cannula 3.0 96.8 ROS: No Nausea, No Chest Pain, No Abdominal Pain, No Increase Cough HEENT: Other Lungs: Clear Cardiovascular: S1, S2 Abdomen: Soft Neuro Exam: Alert Extremities: No Edema Skin: Warm Labs Laboratory Tests Test 08/05/17 16:44 08/05/17 20:45 08/06/17 05:10 08/06/17 08:03 Glucose (Fingerstick) 229 mg/dL (70-99) 236 mg/dL (70-99) 241 mg/dL (70-99) White Blood Count 9.7 x10^3/uL (4.0-11.0) Red Blood Count 3.37 x10^6/uL (3.50-5.40) Hemoglobin 9.8 g/dL (12.0-15.5) Hematocrit 29.3 % (36.0-47.0) Mean Corpuscular Volume 87 fL (79-100) Mean Corpuscular Hemoglobin 29 pg (25-35) Mean Corpuscular Hemoglobin Concent 33 g/dL (31-37) Red Cell Distribution Width 13.7 % (11.5-14.5) Platelet Count 231 x10^3/uL (140-400) Sodium Level 138 mmol/L (136-145) Potassium Level 4.7 mmol/L (3.5-5.1) Chloride Level 102 mmol/L (98-107) Carbon Dioxide Level 29 mmol/L (21-32) Anion Gap 7 (6-14) Blood Urea Nitrogen 26 mg/dL (7-20) Creatinine 1.0 mg/dL (0.6-1.0) Estimated GFR (Cockcroft-Gault) 56.0 Glucose Level 263 mg/dL (70-99) Calcium Level 9.2 mg/dL (8.5-10.1) Test 08/06/17 09:30 08/06/17 11:46 08/06/17 16:43 08/06/17 20:39 Troponin I Quantitative < 0.017 ng/mL (0.000-0.055) Glucose (Fingerstick) 273 mg/dL (70-99) 185 mg/dL (70-99) 209 mg/dL (70-99) Test 08/07/17 05:10 08/07/17 06:54 08/07/17 11:12 White Blood Count 8.6 x10^3/uL (4.0-11.0) Red Blood Count 3.44 x10^6/uL (3.50-5.40) Hemoglobin 10.3 g/dL (12.0-15.5) Hematocrit 30.1 % (36.0-47.0) Mean Corpuscular Volume 88 fL (79-100) Mean Corpuscular Hemoglobin 30 pg (25-35) Mean Corpuscular Hemoglobin Concent 34 g/dL (31-37) Red Cell Distribution Width 13.8 % (11.5-14.5) Platelet Count 254 x10^3/uL (140-400) Sodium Level 139 mmol/L (136-145) Potassium Level 5.1 mmol/L (3.5-5.1) Chloride Level 101 mmol/L (98-107) Carbon Dioxide Level 33 mmol/L (21-32) Anion Gap 5 (6-14) Blood Urea Nitrogen 31 mg/dL (7-20) Creatinine 1.2 mg/dL (0.6-1.0) Estimated GFR (Cockcroft-Gault) 45.4 Glucose Level 264 mg/dL (70-99) Calcium Level 9.1 mg/dL (8.5-10.1) Glucose (Fingerstick) 250 mg/dL (70-99) 257 mg/dL (70-99) Laboratory Tests Test 08/06/17 16:43 08/06/17 20:39 08/07/17 05:10 08/07/17 06:54 Glucose (Fingerstick) 185 mg/dL (70-99) 209 mg/dL (70-99) 250 mg/dL (70-99) White Blood Count 8.6 x10^3/uL (4.0-11.0) Red Blood Count 3.44 x10^6/uL (3.50-5.40) Hemoglobin 10.3 g/dL (12.0-15.5) Hematocrit 30.1 % (36.0-47.0) Mean Corpuscular Volume 88 fL (79-100) Mean Corpuscular Hemoglobin 30 pg (25-35) Mean Corpuscular Hemoglobin Concent 34 g/dL (31-37) Red Cell Distribution Width 13.8 % (11.5-14.5) Platelet Count 254 x10^3/uL (140-400) Sodium Level 139 mmol/L (136-145) Potassium Level 5.1 mmol/L (3.5-5.1) Chloride Level 101 mmol/L (98-107) Carbon Dioxide Level 33 mmol/L (21-32) Anion Gap 5 (6-14) Blood Urea Nitrogen 31 mg/dL (7-20) Creatinine 1.2 mg/dL (0.6-1.0) Estimated GFR (Cockcroft-Gault) 45.4 Glucose Level 264 mg/dL (70-99) Calcium Level 9.1 mg/dL (8.5-10.1) Test 08/07/17 11:12 Glucose (Fingerstick) 257 mg/dL (70-99) Medications Active Scripts Medications Dose Route/Sig Max Daily Dose Days Date Category Dose Instructions Prednisone 10 Mg Tablet 10 Mg PO UD 07/14/17 Rx Take 3 tablets by mouth twice a day for 3 days, then take 2 tablets by mouth twice a day for 3 days, then take 1 tablet by mouth twice a day for 3 days, then take 1 tablet by mouth daily x 3 days, then stop. Duoneb 0.5-3(2.5) Mg/3 Ml (Albuterol/Ipratropium) 3 Ml Ampul.neb 3 Ml NEB QID 30 07/14/17 Rx Spironolactone 50 Mg Tablet 1 Tab PO DAILY 07/01/17 Rx Duoneb 0.5-3(2.5) Mg/3 Ml (Albuterol/Ipratropium) 3 Ml Ampul.neb 3 Ml NEB RTQID 30 07/01/17 Rx Citalopram Hbr (Citalopram Hydrobromide) 40 Mg Tablet 40 Mg PO DAILY 06/28/17 Reported Diovan (Valsartan) 160 Mg Tablet 160 Mg PO DAILY 06/28/17 Reported Valacyclovir (Valacyclovir Hcl) 500 Mg Tablet 500 Mg PO BID 06/28/17 Reported Amlodipine Besylate 2.5 Mg Tablet 5 Mg PO DAILY 30 02/12/17 Rx Atorvastatin Calcium 20 Mg Tablet 20 Mg PO DAILY 09/19/16 Reported Isosorbide Mononitrate Er (Isosorbide Mononitrate) 30 Mg Tab.er.24h 30 Mg PO DAILY 09/19/16 Reported Levothyroxine Sodium 88 Mcg Tablet 88 Mcg PO DAILY06 09/19/16 Reported Carafate (Sucralfate) 1 Gm Tablet 1 Gm PO QIDACHS 30 06/26/16 Rx Nexium Capsule (Esomeprazole Magnesium) 40 Mg Capsule.dr 1 Cap PO DAILY 06/24/16 Reported Metoprolol Succinate ( Xl ) (Metoprolol Succinate) 25 Mg Tab.er.24h 2 Tab PO DAILY 06/24/16 Reported Aspir 81 (Aspirin) 81 Mg Tablet.dr 1 Tab PO DAILY 11/22/15 Reported Effient (Prasugrel Hcl) 10 Mg Tablet 10 Mg PO DAILYWBKFT 11/22/15 Rx Fenofibrate (Fenofibrate Nanocrystallized) 145 Mg Tablet 160 Mg PO DAILY 06/19/14 Reported Metformin Hcl 1,000 Mg Tablet 1,000 Mg PO BID 03/20/14 Reported Impression . 1. Acute on chronic respiratory failure. 2. Acute exacerbation of chronic obstructive pulmonary disease. 3. Recent fall. The patient tripped over her oxygen cord. 4. Coronary artery disease with previous myocardial infarction. 5. Tobacco dependence in remission. 6. Type 2 diabetes. 7. History of deep venous thrombosis, pulmonary embolism. Plan . D/C HOME FOLLOW UP IN OFFICE IN AUG 25. We will continue current medical management for acute exacerbation of COPD. 2. venous Dopplers of the lower extremities NEGATIVE 3. P.r.n. BiPAP. 4. Nebulized treatments. 5. DVT and GI prophylaxis. 6. Monitor blood sugar. SLICK BARNHART MD Aug 07, 2017 15:25
[2017-08-07] MEDS ORDERED: PRED-220 PO (17:34)
[2017-08-07] MEDS ORDERED: INSU100I27 SQ (17:34)
--- NOTE | 2017-08-07 17:40 | PDOC3 ---
Discharge Summary* Date of Admission: Aug 04, 2017 Date of Discharge: Aug 07, 2017 Admitting Diagnosis Problems Medical Problems: (1) COPD exacerbation Status: Acute Problems: Final Diagnosis 1- chest pain likely musculoskeletal, 1- acute on chronic respiratory failure due to COPD exacerbation, venous doppler lower ext negative for DVT, 2- DM II worsening due to steroids better with basal insulin 3-pulmonary HTN 4- chronic diastolic CHF 5-CAD Problems Medical Problems: (1) COPD exacerbation Status: Acute CONSULTS Cardiology, pulmonary Procedures Venous Doppler ultrasound lower extremities negative, chest x-ray, serial cardiac enzymes and EKG Brief Hospital Course Ms. Cash is a 62 old F who presented with respiratory failure due to COPD exacerbation she was placed on BiPAP and admitted to the hospital on the floor she became more short of breath and diaphoretic she was transferred to ICU due to hypoxia and increasing shortness of breath she was treated with the same and higher steroid dose bronchodilators she improved she had a venous Doppler which was negative for any clots she improved gradually and was transferred to the floor the next morning a rapid response was called due to chest pain her EKG did not show any changes cardiology were consulted her troponin was negative it was felt that the pain is musculoskeletal she had recent myocardial perfusion test negative about 10 4 months ago at this point she has improved and she reached the maximum benefit of the hospital stay she was active in her room and on nasal cannula oxygen she is to be discharged on tapered steroids to follow- up as outpatient Disposition/Orders: D/C to Home w/ HH CONDITION AT DISCHARGE: Improved Diet: Cardiac, Consistent Carbohydrate Scheduled Amlodipine Besylate (Amlodipine Besylate), 5 MG PO DAILY Aspirin (Aspir 81), 1 TAB PO DAILY, (Reported) Atorvastatin Calcium (Atorvastatin Calcium), 20 MG PO DAILY, (Reported) Citalopram Hydrobromide (Citalopram Hbr), 40 MG PO DAILY, (Reported) Esomeprazole Magnesium (Nexium Capsule), 1 CAP PO DAILY, (Reported) Fenofibrate Nanocrystallized (Fenofibrate), 160 MG PO DAILY, (Reported) Ipratropium/Albuterol Sulfate (Duoneb 0.5-3(2.5) Mg/3 Ml), 3 ML NEB RTQID Ipratropium/Albuterol Sulfate (Duoneb 0.5-3(2.5) Mg/3 Ml), 3 ML NEB QID Isosorbide Mononitrate (Isosorbide Mononitrate Er), 30 MG PO DAILY, (Reported) Levothyroxine Sodium (Levothyroxine Sodium), 88 MCG PO DAILY06, (Reported) Metformin Hcl (Metformin Hcl), 1,000 MG PO BID, (Reported) Metoprolol Succinate (Metoprolol Succinate ( Xl )), 2 TAB PO DAILY, (Reported) Prasugrel Hcl (Effient), 10 MG PO DAILYWBKFT Prednisone (Prednisone), 10 MG PO UD Spironolactone (Spironolactone), 1 TAB PO DAILY Sucralfate (Carafate), 1 GM PO QIDACHS Valacyclovir Hcl (Valacyclovir), 500 MG PO BID, (Reported) Valsartan (Diovan), 160 MG PO DAILY, (Reported) FOLLOW UP APPOINTMENT: Dr. Tejeda 1 week Time Spent Total time spent with patient [] minutes for coordination of care, counseling, and education. AURA TEJEDA MD Aug 07, 2017 17:40
== END 2017-08-07 18:50 | disposition home or self-care (01) | DRG 189 ==
LOC: ER 14:20 → 2 NORTH 15:21 → 1 WEST ICU 18:38 → 5 NORTH 08-05 15:45
PROVIDERS: ADMIT Internal Medicine; ATTEND Internal Medicine
PROC: 5A09357 Assistance with Respiratory Ventilation, Less than 24 Consecutive Hours, Continuous Positive Airway Pressure (ICD-10-PCS; principal; 2017-08-04)
DX: J96.21 Acute and chronic respiratory failure with hypoxia (principal); I50.32 Chronic diastolic (congestive) heart failure; I13.0 Hypertensive heart and chronic kidney disease with heart failure and stage 1 through stage 4 chronic kidney disease, or unspecified chronic kidney disease; E11.22 Type 2 diabetes mellitus with diabetic chronic kidney disease; J44.1 Chronic obstructive pulmonary disease with (acute) exacerbation; R07.89 Other chest pain; W01.0XXA Fall on same level from slipping, tripping and stumbling without subsequent striking against object, initial encounter; E03.9 Hypothyroidism, unspecified; I27.2 Other secondary pulmonary hypertension; K21.9 Gastro-esophageal reflux disease without esophagitis; M81.0 Age-related osteoporosis without current pathological fracture; N18.3 Chronic kidney disease, stage 3 (moderate); I25.10 Atherosclerotic heart disease of native coronary artery without angina pectoris; S80.211A Abrasion, right knee, initial encounter; F17.201 Nicotine dependence, unspecified, in remission; E78.00 Pure hypercholesterolemia, unspecified; E78.5 Hyperlipidemia, unspecified; F41.9 Anxiety disorder, unspecified; E05.90 Thyrotoxicosis, unspecified without thyrotoxic crisis or storm; F32.9 Major depressive disorder, single episode, unspecified; G56.00 Carpal tunnel syndrome, unspecified upper limb; E11.42 Type 2 diabetes mellitus with diabetic polyneuropathy; Z96.651 Presence of right artificial knee joint; G47.33 Obstructive sleep apnea (adult) (pediatric); T38.0X5A Adverse effect of glucocorticoids and synthetic analogues, initial encounter; Y93.89 Activity, other specified; Y99.8 Other external cause status; Y92.009 Unspecified place in unspecified non-institutional (private) residence as the place of occurrence of the external cause; Z82.49 Family history of ischemic heart disease and other diseases of the circulatory system; Z86.711 Personal history of pulmonary embolism; Z83.3 Family history of diabetes mellitus; I25.2 Old myocardial infarction; Z86.718 Personal history of other venous thrombosis and embolism; Z98.1 Arthrodesis status; Z98.61 Coronary angioplasty status; Z88.1 Allergy status to other antibiotic agents; Z89.529 Acquired absence of unspecified knee; Z90.710 Acquired absence of both cervix and uterus; Z90.49 Acquired absence of other specified parts of digestive tract; Z98.51 Tubal ligation status; Z87.440 Personal history of urinary (tract) infections; Z99.81 Dependence on supplemental oxygen; Z86.19 Personal history of other infectious and parasitic diseases
CPT/HCPCS: 36415; 36600; 71010; 80048; 80076; 82805; 82962; 83690; 83880; 84484; 85007; 85025; 85027; 93005; 93970; 94640; 94660; 94760; 96374; J1815; J2060; J2270; J2930; J7620; 97110; 97530; 99285-25

== ENCOUNTER 2017-08-12 12:15 | Emergency (ER) | payer MEDICARE, MEDICAID ==
[~2017-08-12] VITALS: Ht 157.5 cm; Wt 93.4 kg
[~2017-08-12 12:15] MED LIST changes: +INSU100I27 SQ
--- NOTE | 2017-08-12 12:33 | PHYS DOC ---
Past Medical History Past Medical History: Anxiety, Bronchitis, COPD, Depression, Diabetes-Type II, High Cholesterol, Hypertension, Hyperthyroid, DE Additional Past Medical Histor: EMPHYSEMA Past Surgical History: Angioplasty, Other Additional Past Surgical Histo: left knee replacementx2, spinal fusion, right knee arthroplasty, CTR, Alcohol Use: Rarely Drug Use: None Adult General Chief Complaint Chief Complaint: fall. Hit Head HPI HPI Patient is a 62 year old female who has a history of oxygen-dependent COPD on anticoagulants with frequent falls who presents with on home prior to arrival lost her balance and hit the back of her head no loss of consciousness denies neck or back pain rib pain hip pain. Patient reports frequent falls and was seen here about 3 weeks ago and has old bruising to the left hand forearm right upper extremity and right lower leg. Patient is on blood thinners but doesn't know specifics; prior history DVT left leg. Does not use a walker at home Review of Systems Review of Systems Constitutional: Denies fever or chills [] Eyes: Denies change in visual acuity, redness, or eye pain [] HENT: Denies nasal congestion or sore throat [] Respiratory: Denies cough or shortness of breath [] Cardiovascular: No additional information not addressed in HPI [] GI: Denies abdominal pain, nausea, vomiting, bloody stools or diarrhea [] : Denies dysuria or hematuria [] Musculoskeletal: Denies back pain or joint pain [] Integument: Denies rash or skin lesions [] Neurologic: Denies headache, focal weakness or sensory changes [] Endocrine: Denies polyuria or polydipsia All review systems are negative except as mentioned in history of present illness[] Allergies Allergies Allergies Coded Allergies Type Severity Reaction Last Updated Verified levofloxacin Allergy Intermediate Hives 03/05/17 Yes Physical Exam Physical Exam Constitutional: Well developed, well nourished, no acute distress, non-toxic appearance. [] HENT: Normocephalic, tenderness to the posterior scalp no swelling no laceration no midline cervical spine tenderness no thoracic or lumbar spine tenderness. Bilateral external ears normal, oropharynx moist, no oral exudates, nose normal. [] Eyes: PERRLA, EOMI, conjunctiva normal, no discharge. [] Neck: Normal range of motion, no tenderness, supple, no stridor. [] Cardiovascular:Heart rate regular rhythm, no murmur [] Lungs & Thorax: Bilateral breath sounds clear to auscultation; no rib tenderness [] Abdomen: Bowel sounds normal, soft, no tenderness, no masses, no pulsatile masses. [] Skin: Warm, dry, no erythema, no rash. [] Back: No tenderness, no CVA tenderness. No thoracic or lumbar spine tenderness [ ] Extremities: No tenderness, no cyanosis, no clubbing, ROM intact, no edema. Old bruising noted to the right lower leg left hand and forearm and right upper arm. [] Neurologic: Alert and oriented X 3, normal motor function, normal sensory function, no focal deficits noted. [] Psychologic: Affect normal, judgement normal, mood normal. [] Current Patient Data Vital Signs Vital Signs Date Time Temp Pulse Resp B/P (MAP) Pulse Ox O2 Delivery O2 Flow Rate FiO2 08/12/17 14:30 83 26 134/73 (93) 98 Nasal Cannula 3.0 Lab Values Laboratory Tests Test 08/12/17 13:37 POC Hemoglobin 11.9 g/dL (12-15) L POC Hematocrit 35 % (36-40) L POC Sodium 140 mmol/L (135-145) POC Potassium 4.3 mmol/L (3.5-5.0) POC Chloride 98 mmol/L (98-110) POC Total CO2 28 mmol/L (23-32) Anion Gap 19 mmol/L (6-14) H POC Blood Urea Nitrogen 21 mg/dL (8-26) POC Creatinine 1.0 mg/dL (0.5-1.4) Glucose Level 120 mg/dL (70-99) H POC Ionized Calcium ([place]) 1.18 mmol/L (1.13-1.32) Laboratory Tests 08/12/17 13:37 EKG EKG [] Radiology/Procedures Radiology/Procedures CT had cervical spine negative per radiology report Chest x-ray negative per my review Pelvis x-ray[] negative per my review Course & Med Decision Making Course & Med Decision Making Pertinent Labs and Imaging studies reviewed. (See chart for details). Plan of care will be to obtain imaging of the head and cervical spine chest x-ray and pelvis x-ray. Check an i-STAT for any obvious correctable abnormalities and obtain EKG. I have counseled the patient regarding needing to use a walker we' ll prescribe her one before dismissal. Imaging was negative labs unremarkable plan of care will be dismissed home and write a prescription for a walker.[] Dragon Disclaimer Dragon Disclaimer This electronic medical record was generated, in whole or in part, using a voice recognition dictation system. Departure Departure Impression: Primary Impression: Head contusion Additional Impressions: Frequent falls Chronic anticoagulation Disposition: HOME, SELF-CARE Condition: STABLE Referrals: AURA TEJEDA MD (PCP) Patient Instructions: Head Injury, Adult, [id number] Problem Qualifiers DONG SCHAFFER MD Aug 12, 2017 12:33
--- NOTE | 2017-08-12 13:32 | RAD ---
Indication injury to the head and cervical spine. Pain. The head and cervical spine were evaluated. Images of the cervical spine were reformatted in the coronal and sagittal planes. Note is made of a previous examination of the head just over one month ago. CT head: Findings. The calvarium appears unremarkable. The visualized paranasal sinuses are unremarkable. There is no subdural or epidural hematoma. There is no mass or midline shift. No hemorrhage is seen. No acute finding is apparent. There is not been a significant change when compared to the previous exam. CT cervical spine: Findings. There is a tiny nodule at the right lung apex unchanged when compared to an exam 06/23/2016 and a study in 2013. Underlying emphysematous changes are seen at the lung apices. A significant soft tissue finding in the neck is not seen. Review of axial images is negative with regards to fracture. There are mild spondylitic changes. No fracture or acute finding is seen on the reformatted images. IMPRESSION: Mild spondylitic changes in the cervical spine. No acute finding seen. No acute intracranial finding is seen PQRS Compliance Statement: One or more of the following individualized dose reduction techniques were utilized for this examination: 1. Automated exposure control 2. Adjustment of the mA and/or kV according to patient size 3. Use of iterative reconstruction technique
[2017-08-12 13:41] LABS: POTASSIUM ISTAT 4.3 mmol/L (3.5-5.0)
--- NOTE | 2017-08-12 13:50 | EKG ---
[facility] [address] [place] [id number] Test Date: 2017-08-12 Test Time: 13:13:13 Pat Name: ESVIN SCHROEDER Department: Room: Gender: F Physician/Allergy/Immunology: : 1955 Requested By: DONG SCHAFFER Order Number: [id number] Reading MD: Loreta Cobb Measurements Intervals Norris Rate: 94 P: 67 DE: 132 QRS: 56 QRSD: 86 T: 68 QT: 344 QTc: 435 Interpretive Statements SINUS RHYTHM NORMAL EKG Electronically Signed On 08-15-2017 11:10:25 CDT by Loreta Cobb
--- NOTE | 2017-08-12 14:13 | RAD ---
Pelvis, single view, 08/12/2017: History: Fall, right leg pain No fracture is identified. The hip joints are well-maintained with only minimal marginal spurring. Degenerative changes are noted in the lower lumbar spine. IMPRESSION: No acute bony abnormality is detected.
--- NOTE | 2017-08-12 14:19 | RAD ---
Indication shortness of breath. A single view of the chest was obtained and is compared to an examination 8 days earlier. The heart and pulmonary vessels appear normal. The lungs are clear. There is been little change compared to the previous exam. IMPRESSION: No acute or focal process. No significant change
[2017-08-12 14:30] VITALS: BP 134/73
== END 2017-08-12 15:05 | disposition home or self-care (01) ==
LOC: ER 12:15
DX: S00.93XA Contusion of unspecified part of head, initial encounter (principal); R29.6 Repeated falls; E05.90 Thyrotoxicosis, unspecified without thyrotoxic crisis or storm; E11.9 Type 2 diabetes mellitus without complications; E78.00 Pure hypercholesterolemia, unspecified; F32.9 Major depressive disorder, single episode, unspecified; F41.9 Anxiety disorder, unspecified; I10 Essential (primary) hypertension; J44.9 Chronic obstructive pulmonary disease, unspecified; Z86.718 Personal history of other venous thrombosis and embolism; Z99.81 Dependence on supplemental oxygen; Z98.61 Coronary angioplasty status; Z79.01 Long term (current) use of anticoagulants; Z91.81 History of falling; W01.198A Fall on same level from slipping, tripping and stumbling with subsequent striking against other object, initial encounter; Y93.89 Activity, other specified; Y99.8 Other external cause status; Y92.89 Other specified places as the place of occurrence of the external cause; Z88.1 Allergy status to other antibiotic agents
CPT/HCPCS: 36415; 70450; 71010; 72125; 72170; 80047; 93005; 99284-25

== ENCOUNTER 2017-08-13 20:09 | Inpatient (IN) | payer MEDICARE, MEDICAID ==
[~2017-08-13] VITALS: Ht 162.6 cm; Wt 93.0 kg
--- NOTE | 2017-08-13 21:04 | PHYS DOC ---
Past Medical History Past Medical History: Anxiety, Bronchitis, COPD, Depression, Diabetes-Type II, High Cholesterol, Hypertension, Hyperthyroid, IA Additional Past Medical Histor: EMPHYSEMA Past Surgical History: Angioplasty, Other Additional Past Surgical Histo: left knee replacementx2, spinal fusion, right knee arthroplasty, CTR, Alcohol Use: Rarely Drug Use: None Adult General Chief Complaint Chief Complaint: MECHANICAL FALL HPI HPI 62-year-old female presenting to the emergency department today after being dizzy and felt lightheaded. She reports feeling lightheaded when she stood up and then hit the right side of her head. She currently is on anticoagulants but cannot remember the name of it. She complains of pain in the right shoulder that is sharp moderate intermittent nonradiating and without alleviating factors. Review of systems is negative for shortness of breath fevers chills confusion cyanosis or lethargy. She denies any injury to her low back or hips. All other review of systems is negative unless otherwise noted in history of present illness. ED course: 62-year-old female presenting to the emergency department today after falling and hitting her head and feeling lightheaded. Upon triage the patient was afebrile with mildly fast heart rate at 96. Otherwise the patient is on chronic 2 L nasal cannula for underlying COPD. Pertinent physical exam findings show mild contusion to the right side of scalp. No step-offs abrasions lacerations or ecchymosis of the C-spine. Nontender C-spine. Otherwise the patient has pain with passive range of motion of the right shoulder. Palpable pulse distally with 2 second cap refill. The remainder the extremities are nontender with normal range of motion of the joints. Neurovascularly intact. The remainder the secondary survey was unremarkable. EKG checks x-ray and blood work ordered. The pt was then signed out to Dr. Schultz at 9pm to f/u on blood work and head and neck ct. Review of Systems Review of Systems SEE ABOVE. Current Medications Current Medications Current Medications Medications (Trade) Dose Ordered Sig/Juan Start Time Stop Time Status Last Admin Dose Admin Sodium Chloride 500 ml @ 500 mls/hr 1X ONCE 08/13/17 22:00 08/13/17 22:59 DC 08/13/17 21:51 500 MLS/HR Allergies Allergies Allergies Coded Allergies Type Severity Reaction Last Updated Verified levofloxacin Allergy Intermediate Hives 03/05/17 Yes Physical Exam Physical Exam SEE ABOVE Constitutional: Well developed, well nourished, no acute distress, non-toxic appearance. [] HENT: Normocephalic, SEE ABOVE bilateral external ears normal, oropharynx moist , no oral exudates, nose normal. []Mild contusion without any depressed skull fractures. Eyes: PERRLA, EOMI, conjunctiva normal, no discharge. [] Neck: Normal range of motion, no tenderness, supple, no stridor. [] Cardiovascular:Heart rate regular rhythm, no murmur [] Lungs & Thorax: Bilateral breath sounds clear to auscultation [] Abdomen: Bowel sounds normal, soft, no tenderness, no masses, no pulsatile masses. [] Skin: Warm, dry, no erythema, no rash. [] Back: No tenderness, no CVA tenderness. [] Extremities: No tenderness, no cyanosis, no clubbing, ROM intact, no edema. [] Neurologic: Alert and oriented X 3, normal motor function, normal sensory function, no focal deficits noted. [] Psychologic: Affect normal, judgement normal, mood normal. [] Current Patient Data Vital Signs Vital Signs Date Time Temp Pulse Resp B/P (MAP) Pulse Ox O2 Delivery O2 Flow Rate FiO2 08/13/17 20:16 98.7 96 22 149/72 (97) 97 Room Air 2.0 98.7 Lab Values Laboratory Tests Test 08/13/17 21:10 08/13/17 22:10 White Blood Count 11.4 x10^3/uL (4.0-11.0) H Red Blood Count 3.90 x10^6/uL (3.50-5.40) Hemoglobin 11.2 g/dL (12.0-15.5) L Hematocrit 34.7 % (36.0-47.0) L Mean Corpuscular Volume 89 fL (79-100) Mean Corpuscular Hemoglobin 29 pg (25-35) Mean Corpuscular Hemoglobin Concent 32 g/dL (31-37) Red Cell Distribution Width 14.9 % (11.5-14.5) H Platelet Count 336 x10^3/uL (140-400) Neutrophils (%) (Auto) 80 % (31-73) H Lymphocytes (%) (Auto) 11 % (24-48) L Monocytes (%) (Auto) 8 % (0-9) Eosinophils (%) (Auto) 1 % (0-3) Basophils (%) (Auto) 0 % (0-3) Neutrophils # (Auto) 9.2 x10^3uL (1.8-7.7) H Lymphocytes # (Auto) 1.2 x10^3/uL (1.0-4.8) Monocytes # (Auto) 0.9 x10^3/uL (0.0-1.1) Eosinophils # (Auto) 0.1 x10^3/uL (0.0-0.7) Basophils # (Auto) 0.0 x10^3/uL (0.0-0.2) Sodium Level 141 mmol/L (136-145) Potassium Level 3.8 mmol/L (3.5-5.1) Chloride Level 101 mmol/L (98-107) Carbon Dioxide Level 32 mmol/L (21-32) Anion Gap 8 (6-14) Blood Urea Nitrogen 25 mg/dL (7-20) H Creatinine 1.3 mg/dL (0.6-1.0) H Estimated GFR (Cockcroft-Gault) 41.4 Glucose Level 168 mg/dL (70-99) H Calcium Level 8.7 mg/dL (8.5-10.1) Total Bilirubin 0.4 mg/dL (0.2-1.0) Direct Bilirubin 0.1 mg/dL (0.0-0.2) Aspartate Amino Transferase (AST) 11 U/L (15-37) L Alanine Aminotransferase (ALT) 25 U/L (14-59) Alkaline Phosphatase 117 U/L (46-116) H Troponin I Quantitative < 0.017 ng/mL (0.000-0.055) Total Protein 7.0 g/dL (6.4-8.2) Albumin 3.2 g/dL (3.4-5.0) L Lipase 115 U/L (73-393) Urine Collection Type Unknown Urine Color Yellow Urine Clarity Clear Urine pH 5.5 Urine Specific [place] >=1.030 Urine Protein Negative mg/dL (NEG-TRACE) Urine Glucose (UA) Negative mg/dL (NEG) Urine Ketones (Stick) Negative mg/dL (NEG) Urine Blood Negative (NEG) Urine Nitrite Negative (NEG) Urine Bilirubin Small (NEG) Urine Urobilinogen Dipstick 1.0 mg/dL (0.2 mg/dL) Urine Leukocyte Esterase Large (NEG) Urine RBC 0 /HPF (0-2) Urine WBC 20-40 /HPF (0-4) Urine Squamous Epithelial Cells Mod /LPF Urine Bacteria Few /HPF (0-FEW) Urine Hyaline Casts Few /HPF Urine Mucus Mod /LPF Laboratory Tests 08/13/17 21:10 Laboratory Tests 08/13/17 21:10 EKG EKG Interpreted by Dr. Schultz: Heart rate 95, sinus rhythm, normal intervals, normal axis, no acute ST/T-wave abnormalities present[] Radiology/Procedures Radiology/Procedures One view AP chest x-ray interpreted by me: No infiltrate, no effusions, normal cardiac silhouette 3 view right shoulder x-ray interpreted by me: No fractures, no dislocations, normal soft tissue [facility] [address] [place] [address] IMAGING REPORT Signed PATIENT: ESVIN SCHROEDER ACCOUNT: [id number] : 1955 LOCATION: ER AGE: 62 SEX: F EXAM STATUS: REG ER ORD. PHYSICIAN: СЕРГЕЙ MEJIA MD REASON: fall and head injury PROCEDURE: CT HEAD AND CERVICAL SPINE WO CT HEAD AND CERVICAL SPINE WO dated 08/13/2017 8:45 PM History: Fall, hit head, on blood thinners Technique: Noncontrast CT imaging was performed of the head and cervical spine. Multiplanar reconstruction images are submitted. Exposure: One or more of the following individualized dose reduction techniques were utilized for this examination: 1. Automated exposure control 2. Adjustment of the mA and/or kV according to patient size 3. Use of iterative reconstruction technique. Head CT Comparison: August 12, 2017 Findings: No acute extra-axial or parenchymal hemorrhage is identified. There is no significant intra-axial mass effect, midline shift, or extra-axial fluid collection. The soni-white differentiation of the major vascular territories is preserved. The ventricles, sulci, and cisterns are within normal limits in size and configuration. The mastoid air cells and the visualized paranasal sinuses are aerated. There is no significant focal calvarial abnormality. Impression: 1. No acute intracranial abnormality is identified. Cervical spine CT Comparison: None Findings: No acute cervical spine fracture is identified. Vertebral body stature and AP alignment are within normal limits. Atlanto-axial distance is within normal limits. There is appropriate alignment of lateral masses of C1 relative to C2. Occipital condylar-C1 relationship is maintained. There is reversal of the lordotic curvature centered at C5-6. There is moderate to severe degenerative disc disease C5-C6 and to lesser degree at C4-5 and C6-7, spondylosis at the same levels. There is likely borderline narrowing of the central canal C5-6. There is multilevel facet and uncovertebral degenerative change which contributes to multilevel neural foramina compromise including more significant narrowing on the right at C4-5, C5-C6, and C6-7 and on the left at C3-4 and to a lesser degree on the left at C5-C6. There is emphysema of the visualized lung apices. Impression: 1. No acute cervical spine fracture is identified. 2. There is degenerative disc disease and spondylosis greatest C4-5 to C6-7. There is multilevel facet and uncovertebral degenerative change which contributes to multilevel cervical neural foramina compromise. Electronically signed by: Anastasiia Jaime MD (08/13/2017 9:14 PM) [facility] DICTATED and SIGNED BY: ANASTASIIA JAIME MD DATE: 08/13/172106 CC: DONG SCHULTZ MD; СЕРГЕЙ MEJIA MD; AURA TEJEDA MD ~ [] Course & Med Decision Making Course & Med Decision Making Pertinent Labs and Imaging studies reviewed. (See chart for details) I took over care of patient at 2100. I followed up with patient's imaging and lab work. The patient was found have evidence of urinary tract infection. The patient is likely experiencing generalized fatigue from active infection. Due to multiple falls with previous visit yesterday in the emergency department and continued fall risk, the patient will need admission to the hospital for further treatment. I spoke with Dr. Tejeda who accepted care patient in hospital. Dragon Disclaimer Dragon Disclaimer This electronic medical record was generated, in whole or in part, using a voice recognition dictation system. Departure Departure Impression: Primary Impression: UTI (urinary tract infection) Additional Impressions: Generalized weakness Multiple falls Dehydration Right shoulder pain Disposition: ADMITTED INPATIENT Admitting Physician: Aura Tejeda Condition: STABLE Referrals: AURA TEJEDA MD (PCP) Problem Qualifiers Primary Impression: UTI (urinary tract infection) Urinary tract infection type: site unspecified Hematuria presence: without hematuria Qualified Codes: N39.0 - Urinary tract infection, site not specified Additional Impressions: Right shoulder pain Chronicity: acute Qualified Codes: M25.511 - Pain in right shoulder СЕРГЕЙ MEJIA MD Aug 13, 2017 21:04 DONG SCHULTZ MD Aug 13, 2017 23:17
--- NOTE | 2017-08-13 21:17 | RAD ---
CT HEAD AND CERVICAL SPINE WO dated 08/13/2017 8:45 PM History: Fall, hit head, on blood thinners Technique: Noncontrast CT imaging was performed of the head and cervical spine. Multiplanar reconstruction images are submitted. Exposure: One or more of the following individualized dose reduction techniques were utilized for this examination: 1. Automated exposure control 2. Adjustment of the mA and/or kV according to patient size 3. Use of iterative reconstruction technique. Head CT Comparison: August 12, 2017 Findings: No acute extra-axial or parenchymal hemorrhage is identified. There is no significant intra-axial mass effect, midline shift, or extra-axial fluid collection. The soni-white differentiation of the major vascular territories is preserved. The ventricles, sulci, and cisterns are within normal limits in size and configuration. The mastoid air cells and the visualized paranasal sinuses are aerated. There is no significant focal calvarial abnormality. Impression: 1. No acute intracranial abnormality is identified. Cervical spine CT Comparison: None Findings: No acute cervical spine fracture is identified. Vertebral body stature and AP alignment are within normal limits. Atlanto-axial distance is within normal limits. There is appropriate alignment of lateral masses of C1 relative to C2. Occipital condylar-C1 relationship is maintained. There is reversal of the lordotic curvature centered at C5-6. There is moderate to severe degenerative disc disease C5-C6 and to lesser degree at C4-5 and C6-7, spondylosis at the same levels. There is likely borderline narrowing of the central canal C5-6. There is multilevel facet and uncovertebral degenerative change which contributes to multilevel neural foramina compromise including more significant narrowing on the right at C4-5, C5-C6, and C6-7 and on the left at C3-4 and to a lesser degree on the left at C5-C6. There is emphysema of the visualized lung apices. Impression: 1. No acute cervical spine fracture is identified. 2. There is degenerative disc disease and spondylosis greatest C4-5 to C6-7. There is multilevel facet and uncovertebral degenerative change which contributes to multilevel cervical neural foramina compromise. Electronically signed by: Jarrett Neumann MD (08/13/2017 9:14 PM) [facility]
[2017-08-13 21:20] LABS: BASO % 0 % (0-3); EOS % 1 % (0-3); HEMATOCRIT 34.7 % (36.0-47.0); HEMOGLOBIN 11.2 g/dL (12.0-15.5); LYMPH # 1.2 x10^3/uL (1.0-4.8); LYMPH % 11 % (24-48); MEAN CORPUSCULAR HEMOGLOBIN 29 pg (25-35); MEAN CORPUSCULAR HGB CONC 32 g/dL (31-37); MEAN CORPUSCULAR VOLUME 89 fL (79-100); MONO % 8 % (0-9); NEUT % 80 % (31-73); PLATELET COUNT 336 x10^3/uL (140-400); RED CELL DISTRIBUTION WIDTH 14.9 % (11.5-14.5); WHITE BLOOD COUNT 11.4 x10^3/uL (4.0-11.0)
[2017-08-13 21:32] LABS: CALCIUM 8.7 mg/dL (8.5-10.1); CREATININE 1.3 mg/dL (0.6-1.0); GFR 41.4; POTASSIUM 3.8 mmol/L (3.5-5.1)
[2017-08-13 21:38] LABS: ALBUMIN 3.2 g/dL (3.4-5.0); DIRECT BILIRUBIN 0.1 mg/dL (0.0-0.2); TOTAL BILIRUBIN 0.4 mg/dL (0.2-1.0)
[2017-08-13] MEDS ORDERED: IV NORMAL SALINE 500ML BAG 500 ML IV ONE (22:00)
[2017-08-13 22:19] LABS: BILIRUBIN,URINE SMALL (NEG); GLUCOSE,URINE NEGATIVE (NEG); NITRITE,URINE NEGATIVE (NEG); PH,URINE 5.5; PROTEIN,URINE NEGATIVE (NEG-TRACE)
[2017-08-13] MEDS: IV NORMAL SALINE 1000ML BAG 1,000 ML IV SCH (22:32)
[2017-08-13 22:41] LABS: BACTERIA,URINE FEW /HPF (0-FEW); RBC,URINE 0 /HPF (0-2); SQUAMOUS EPITHELIAL CELL,UR MOD /LPF; WBC,URINE 20-40 /HPF (0-4)
[2017-08-13] MEDS ORDERED: fentaNYL PF VIAL 100 MCG/2 ML VIAL IV PRN (22:45)
[2017-08-13] MEDS ORDERED: ONDANSETRON PF 4 MG/2 ML VIAL. IV PRN (22:45)
[2017-08-13] MEDS ORDERED: ACETAMINOPHEN 325 MG TABLET. PO PRN (22:45)
[2017-08-14 00:26] VITALS: BP 114/70
[2017-08-14 05:29] LABS: BASO % 0 % (0-3); EOS % 0 % (0-3); HEMATOCRIT 31.3 % (36.0-47.0); HEMOGLOBIN 10.4 g/dL (12.0-15.5); LYMPH # 1.3 x10^3/uL (1.0-4.8); LYMPH % 17 % (24-48); MEAN CORPUSCULAR HEMOGLOBIN 29 pg (25-35); MEAN CORPUSCULAR HGB CONC 33 g/dL (31-37); MEAN CORPUSCULAR VOLUME 88 fL (79-100); MONO % 8 % (0-9); NEUT % 75 % (31-73); PLATELET COUNT 287 x10^3/uL (140-400); RED BLOOD COUNT 3.56 x10^6/uL (3.50-5.40); RED CELL DISTRIBUTION WIDTH 14.5 % (11.5-14.5); WHITE BLOOD COUNT 7.7 x10^3/uL (4.0-11.0)
[2017-08-14 06:08] LABS: CALCIUM 8.7 mg/dL (8.5-10.1); POTASSIUM 5.3 mmol/L (3.5-5.1)
--- NOTE | 2017-08-14 06:23 | EKG ---
[facility] [address] [place] [address] Test Date: 2017-08-13 Test Time: 21:19:38 Pat Name: ESVIN SCHROEDER Department: Room: 584 1 Gender: F Head Of Music: : 1955 Requested By: СЕРГЕЙ MEJIA Order Number: [id number] Reading MD: Loreta Cobb Measurements Intervals [place] Rate: 95 P: 45 UT: 128 QRS: 57 QRSD: 90 T: 69 QT: 350 QTc: 443 Interpretive Statements SINUS RHYTHM QRS(T) CONTOUR ABNORMALITY CONSIDER ANTEROLATERAL MYOCARDIAL DAMAGE POSSIBLY ABNORMAL ECG RI6.01 Compared to ECG 08/06/2017 08:50:50 Sinus tachycardia no longer present Electronically Signed On 08-19-2017 10:43:52 CDT by Loreta Cobb
[2017-08-14 07:00] VITALS: BP 164/90
--- NOTE | 2017-08-14 07:46 | RAD ---
Portable chest, 08/13/2017: History: Fall, chest wall and shoulder pain Comparison is made to a study from 08/12/2017. The heart size and pulmonary vascularity are normal. There is minimal left basilar scarring or atelectasis. The lungs are otherwise clear. There is no evidence of pleural fluid or pneumothorax. Vertebroplasty change is noted in the thoracic spine. IMPRESSION: Minimal left basilar scarring or atelectasis. Right shoulder, 3 views, 08/13/2017: The bony structures are demineralized. No fracture or dislocation is identified. There is minimal degenerative change at the right shoulder. IMPRESSION: No acute bony abnormality is detected.
[2017-08-14] MEDS ORDERED: IPRATRPIUM/ALBUTEROL 0.5/2.5MG 3 ML NEBU. NEB SCH ×2 (09:00→12:00)
[2017-08-14] MEDS: FENOFIBRATE,MICRONIZED 134 MG CAPSULE PO SCH (09:54)
[2017-08-14] MEDS: LEVOTHYROXINE 88 MCG TABLET PO SCH (09:54)
[2017-08-14] MEDS: PRASUGREL 10 MG TABLET. PO SCH (09:55)
[2017-08-14] MEDS: HYDROcodone/APAP 5/325MG 1 TAB TABLET PO PRN ×2 (09:55→19:37)
[2017-08-14] MEDS: CITALOPRAM 20 MG TABLET. PO SCH (09:55)
[2017-08-14] MEDS: METOPROLOL SUCC 24HR ER 50 MG TAB.ER.24H. PO SCH (09:55)
[2017-08-14] MEDS: valACYclovir 500 MG TABLET. PO SCH ×2 (09:56→21:33)
[2017-08-14] MEDS: ASPIRIN ENTERIC COATED 81 MG TABLET.DR. PO SCH (09:56)
[2017-08-14] MEDS: amLODIPine BESYLATE 5 MG TABLET PO SCH (09:56)
[2017-08-14] MEDS: ISOSORBIDE MONONITRATE ER 30 MG TAB.ER.24H PO SCH (09:56)
[2017-08-14] MEDS: IV NORMAL SALINE 1000ML BAG 1,000 ML IV SCH ×2 (10:04→19:38)
--- NOTE | 2017-08-14 10:14 | PDOC1 ---
History and Physical Date of Admission Date of Admission 08/13/17 Identification/Chief Complaint Chief Complaint Recurrent falls Problems: Source Source: Chart review, Patient History of Present Illness History of Present Illness 62-year-old female presenting to the emergency department today after being dizzy and felt lightheaded. She reports feeling lightheaded when she stood up and then hit the right side of her head. She currently is on anticoagulants but cannot remember the name of it. She complains of pain in the right shoulder that is sharp moderate intermittent nonradiating and without alleviating factors. Also has pain in the right rib area, she has been admitted almost every couple weeks to the hospital and therefore I am fall or increasing shortness of breasts she is known to have COPD and coronary artery disease Past Medical History Cardiovascular: CAD, HTN, [place], Hyperlipidemia, Valve insufficiency, Pulmonary hypertension Pulmonary: COPD, Other CENTRAL NERVOUS SYSTEM: Carpal Tunnel Syndrome, Periperal neuropathy GI: GERD Heme/Onc: No pertinent hx Hepatobiliary: No pertinent hx Psych: Anxiety, Depression Rheumatologic: No pertinent hx Infectious disease: Herpes simplex2 Renal/: No pertinent hx, UTI, Urinary Incontinence Endocrine: Diabetes, Hypothyroidism, Osteoporosis Past Surgical History Past Surgical History: Cholecystectomy, Total knee replacement, Tubal Ligation , Hysterectomy, Other Family History Family History: Diabetes, Hypertension, Other Social History Smoke: Quit ALCOHOL: none Drugs: None Current Problem List Problem List Problems Medical Problems: (1) Fall Status: Acute (2) Head injury Status: Acute (3) Right shoulder pain Status: Acute (4) UTI (urinary tract infection) Status: Acute Current Medications Current Medications Current Medications Medications (Trade) Dose Ordered Sig/[facility] Start Time Stop Time Status Last Admin Dose Admin Acetaminophen (Tylenol) 650 mg PRN Q4HRS PRN 08/13/17 22:45 08/14/17 22:44 Acetaminophen/ Hydrocodone Bitart (Lortab 5/325) 1 tab TID PRN PRN 08/14/17 09:30 08/14/17 09:55 1 TAB Albuterol/ Ipratropium (Duoneb) 3 ml RTQID 08/14/17 12:00 Amlodipine Besylate (Norvasc) 5 mg DAILY 08/14/17 09:00 08/14/17 09:56 5 MG Aspirin (Ecotrin) 81 mg [id number] 08/14/17 09:00 08/14/17 09:56 81 MG Atorvastatin Calcium (Lipitor) 20 mg QHS 08/14/17 21:00 Ceftriaxone Sodium 1 gm/ Sodium Chloride 50 ml @ 100 mls/hr Q24H 08/14/17 23:00 Ceftriaxone Sodium 50 ml @ 100 mls/hr 1X ONCE 08/13/17 23:30 08/13/17 23:59 DC 08/14/17 00:41 100 MLS/HR Citalopram Hydrobromide (CeleXA) 40 mg DAILY 08/14/17 09:00 08/14/17 09:55 40 MG Fenofibrate (Lofibra) 134 mg DAILY 08/14/17 09:00 08/14/17 09:54 134 MG Fentanyl Citrate (Fentanyl 2ml Vial) 50 mcg PRN Q2HR PRN 08/13/17 22:45 08/14/17 22:44 Insulin Detemir (Levemir) 7 units QHS 08/14/17 21:00 Isosorbide Mononitrate (Imdur) 30 mg DAILY 08/14/17 09:00 08/14/17 09:56 30 MG Levothyroxine Sodium (Synthroid) 88 mcg DAILY06 08/14/17 09:00 08/14/17 09:54 88 MCG Metformin HCl (Glucophage) 1,000 mg BIDWMEALS 08/14/17 09:00 08/14/17 09:55 1,000 MG Metoprolol Succinate (Toprol Xl) 50 mg DAILY 08/14/17 09:00 08/14/17 09:55 50 MG Ondansetron HCl (Zofran) 4 mg PRN Q8HRS PRN 08/13/17 22:45 08/14/17 22:44 Pantoprazole Sodium (Protonix) 40 mg DAILYAC 08/15/17 07:30 Prasugrel (Effient) 10 mg DAILYWBKFT 08/14/17 09:00 08/14/17 09:55 10 MG Sodium Chloride 1,000 ml @ 100 mls/hr Q10H 08/13/17 22:32 08/14/17 22:31 08/14/17 10:04 100 MLS/HR Sucralfate (Carafate) 1 gm QIDACHS 08/14/17 11:30 Valacyclovir HCl (Valtrex) 500 mg BID 08/14/17 09:00 08/14/17 09:56 500 MG Allergies Allergies Allergies Coded Allergies Type Severity Reaction Last Updated Verified levofloxacin Allergy Intermediate Hives 03/05/17 Yes ROS Review of System CONSTITUTIONAL: No fever or chills EYES: No recent changes SKIN: No rash or itching CARDIOVASCULAR: No chest pain, syncope, palpitations, or edema RESPIRATORY: No increase SOB or cough GASTROINTESTINAL: No nausea, vomiting or abdominal pain NEUROLOGICAL: No headaches , general weakness and recurrent falls ENDOCRINE: No cold or heat intolerance GENITOURINARY: No urgency or frequency of urination MUSCULOSKELETAL: No back pain or joint pain LYMPHATICS: No enlarged lymph nodes PSYCHIATRIC: No anxiety or depression Physical Exam Physical Exam GEN.: No apparent distress. Alert and oriented. HEENT: Head is normocephalic, atraumatic NECK: Supple. LUNGS: Decreased breath sounds HEART: RRR, . Peripheral pulses intact ABDOMEN: Soft, nontender. Positive bowel sounds. EXTREMITIES: Without any cyanosis. NEUROLOGIC: Normal speech, normal tone PSYCHIATRIC: Normal affect, normal mood. SKIN: No ulcerations Vitals Vitals Vital Signs Date Time Temp Pulse Resp B/P (MAP) Pulse Ox O2 Delivery O2 Flow Rate FiO2 08/14/17 09:56 83 164/90 08/14/17 09:55 97 Nasal Cannula 2.0 08/14/17 07:00 97.9 18 97.9 Labs Labs Laboratory Tests Test 08/13/17 21:10 08/13/17 22:10 08/14/17 04:30 08/14/17 07:53 White Blood Count 11.4 x10^3/uL (4.0-11.0) 7.7 x10^3/uL (4.0-11.0) Red Blood Count 3.90 x10^6/uL (3.50-5.40) 3.56 x10^6/uL (3.50-5.40) Hemoglobin 11.2 g/dL (12.0-15.5) 10.4 g/dL (12.0-15.5) Hematocrit 34.7 % (36.0-47.0) 31.3 % (36.0-47.0) Mean Corpuscular Volume 89 fL (79-100) 88 fL (79-100) Mean Corpuscular Hemoglobin 29 pg (25-35) 29 pg (25-35) Mean Corpuscular Hemoglobin Concent 32 g/dL (31-37) 33 g/dL (31-37) Red Cell Distribution Width 14.9 % (11.5-14.5) 14.5 % (11.5-14.5) Platelet Count 336 x10^3/uL (140-400) 287 x10^3/uL (140-400) Neutrophils (%) (Auto) 80 % (31-73) 75 % (31-73) Lymphocytes (%) (Auto) 11 % (24-48) 17 % (24-48) Monocytes (%) (Auto) 8 % (0-9) 8 % (0-9) Eosinophils (%) (Auto) 1 % (0-3) 0 % (0-3) Basophils (%) (Auto) 0 % (0-3) 0 % (0-3) Neutrophils # (Auto) 9.2 x10^3uL (1.8-7.7) 5.8 x10^3uL (1.8-7.7) Lymphocytes # (Auto) 1.2 x10^3/uL (1.0-4.8) 1.3 x10^3/uL (1.0-4.8) Monocytes # (Auto) 0.9 x10^3/uL (0.0-1.1) 0.6 x10^3/uL (0.0-1.1) Eosinophils # (Auto) 0.1 x10^3/uL (0.0-0.7) 0.0 x10^3/uL (0.0-0.7) Basophils # (Auto) 0.0 x10^3/uL (0.0-0.2) 0.0 x10^3/uL (0.0-0.2) Sodium Level 141 mmol/L (136-145) 142 mmol/L (136-145) Potassium Level 3.8 mmol/L (3.5-5.1) 5.3 mmol/L (3.5-5.1) Chloride Level 101 mmol/L (98-107) 105 mmol/L (98-107) Carbon Dioxide Level 32 mmol/L (21-32) 33 mmol/L (21-32) Anion Gap 8 (6-14) 4 (6-14) Blood Urea Nitrogen 25 mg/dL (7-20) 20 mg/dL (7-20) Creatinine 1.3 mg/dL (0.6-1.0) 1.0 mg/dL (0.6-1.0) Estimated GFR (Cockcroft-Gault) 41.4 56.0 Glucose Level 168 mg/dL (70-99) 174 mg/dL (70-99) Calcium Level 8.7 mg/dL (8.5-10.1) 8.7 mg/dL (8.5-10.1) Total Bilirubin 0.4 mg/dL (0.2-1.0) Direct Bilirubin 0.1 mg/dL (0.0-0.2) Aspartate Amino Transf (AST/SGOT) 11 U/L (15-37) Alanine Aminotransferase (ALT/SGPT) 25 U/L (14-59) Alkaline Phosphatase 117 U/L (46-116) Troponin I Quantitative < 0.017 ng/mL (0.000-0.055) Total Protein 7.0 g/dL (6.4-8.2) Albumin 3.2 g/dL (3.4-5.0) Lipase 115 U/L (73-393) Urine Collection Type Unknown Urine Color Yellow Urine Clarity Clear Urine pH 5.5 Urine Specific [place] >=1.030 Urine Protein Negative mg/dL (NEG-TRACE) Urine Glucose (UA) Negative mg/dL (NEG) Urine Ketones (Stick) Negative mg/dL (NEG) Urine Blood Negative (NEG) Urine Nitrite Negative (NEG) Urine Bilirubin Small (NEG) Urine Urobilinogen Dipstick 1.0 mg/dL (0.2 mg/dL) Urine Leukocyte Esterase Large (NEG) Urine RBC 0 /HPF (0-2) Urine WBC 20-40 /HPF (0-4) Urine Squamous Epithelial Cells Mod /LPF Urine Bacteria Few /HPF (0-FEW) Urine Hyaline Casts Few /HPF Urine Mucus Mod /LPF Glucose (Fingerstick) 95 mg/dL (70-99) Laboratory Tests Test 08/13/17 21:10 08/13/17 22:10 08/14/17 04:30 08/14/17 07:53 White Blood Count 11.4 x10^3/uL (4.0-11.0) 7.7 x10^3/uL (4.0-11.0) Red Blood Count 3.90 x10^6/uL (3.50-5.40) 3.56 x10^6/uL (3.50-5.40) Hemoglobin 11.2 g/dL (12.0-15.5) 10.4 g/dL (12.0-15.5) Hematocrit 34.7 % (36.0-47.0) 31.3 % (36.0-47.0) Mean Corpuscular Volume 89 fL (79-100) 88 fL (79-100) Mean Corpuscular Hemoglobin 29 pg (25-35) 29 pg (25-35) Mean Corpuscular Hemoglobin Concent 32 g/dL (31-37) 33 g/dL (31-37) Red Cell Distribution Width 14.9 % (11.5-14.5) 14.5 % (11.5-14.5) Platelet Count 336 x10^3/uL (140-400) 287 x10^3/uL (140-400) Neutrophils (%) (Auto) 80 % (31-73) 75 % (31-73) Lymphocytes (%) (Auto) 11 % (24-48) 17 % (24-48) Monocytes (%) (Auto) 8 % (0-9) 8 % (0-9) Eosinophils (%) (Auto) 1 % (0-3) 0 % (0-3) Basophils (%) (Auto) 0 % (0-3) 0 % (0-3) Neutrophils # (Auto) 9.2 x10^3uL (1.8-7.7) 5.8 x10^3uL (1.8-7.7) Lymphocytes # (Auto) 1.2 x10^3/uL (1.0-4.8) 1.3 x10^3/uL (1.0-4.8) Monocytes # (Auto) 0.9 x10^3/uL (0.0-1.1) 0.6 x10^3/uL (0.0-1.1) Eosinophils # (Auto) 0.1 x10^3/uL (0.0-0.7) 0.0 x10^3/uL (0.0-0.7) Basophils # (Auto) 0.0 x10^3/uL (0.0-0.2) 0.0 x10^3/uL (0.0-0.2) Sodium Level 141 mmol/L (136-145) 142 mmol/L (136-145) Potassium Level 3.8 mmol/L (3.5-5.1) 5.3 mmol/L (3.5-5.1) Chloride Level 101 mmol/L (98-107) 105 mmol/L (98-107) Carbon Dioxide Level 32 mmol/L (21-32) 33 mmol/L (21-32) Anion Gap 8 (6-14) 4 (6-14) Blood Urea Nitrogen 25 mg/dL (7-20) 20 mg/dL (7-20) Creatinine 1.3 mg/dL (0.6-1.0) 1.0 mg/dL (0.6-1.0) Estimated GFR (Cockcroft-Gault) 41.4 56.0 Glucose Level 168 mg/dL (70-99) 174 mg/dL (70-99) Calcium Level 8.7 mg/dL (8.5-10.1) 8.7 mg/dL (8.5-10.1) Total Bilirubin 0.4 mg/dL (0.2-1.0) Direct Bilirubin 0.1 mg/dL (0.0-0.2) Aspartate Amino Transf (AST/SGOT) 11 U/L (15-37) Alanine Aminotransferase (ALT/SGPT) 25 U/L (14-59) Alkaline Phosphatase 117 U/L (46-116) Troponin I Quantitative < 0.017 ng/mL (0.000-0.055) Total Protein 7.0 g/dL (6.4-8.2) Albumin 3.2 g/dL (3.4-5.0) Lipase 115 U/L (73-393) Urine Collection Type Unknown Urine Color Yellow Urine Clarity Clear Urine pH 5.5 Urine Specific [place] >=1.030 Urine Protein Negative mg/dL (NEG-TRACE) Urine Glucose (UA) Negative mg/dL (NEG) Urine Ketones (Stick) Negative mg/dL (NEG) Urine Blood Negative (NEG) Urine Nitrite Negative (NEG) Urine Bilirubin Small (NEG) Urine Urobilinogen Dipstick 1.0 mg/dL (0.2 mg/dL) Urine Leukocyte Esterase Large (NEG) Urine RBC 0 /HPF (0-2) Urine WBC 20-40 /HPF (0-4) Urine Squamous Epithelial Cells Mod /LPF Urine Bacteria Few /HPF (0-FEW) Urine Hyaline Casts Few /HPF Urine Mucus Mod /LPF Glucose (Fingerstick) 95 mg/dL (70-99) VTE Prophylaxis Ordered VTE Prophylaxis Devices: Yes VTE Pharmacological Prophylaxi: Yes Assessment/Plan Assessment/Plan 1-recurrent falls will ask physical therapy to evaluate and decide if she does need to go [facility] or can continue physical therapy as outpatient 2-neuropathy probably contributing to the falls will ask neurology to see, I also advised her to use less pain medications 3-acute on chronic renal failure improved with hydration 4-hyperkalemia will hold losartan and spironolactone 5-COPD 7-coronary artery disease AURA TEJEDA MD Aug 14, 2017 10:14
[2017-08-14] MEDS: IPRATRPIUM/ALBUTEROL 0.5/2.5MG 3 ML NEBU. NEB SCH ×3 (10:44→19:53)
[2017-08-14 11:00] VITALS: BP 147/65
[2017-08-14] MEDS ORDERED: ALBUTEROL SULFATE 2.5 MG/3 ML NEBU. NEB PRN (11:00)
--- NOTE | 2017-08-14 11:49 | RAD ---
Right RIBS, 3 views, 08/14/2017: History: Fall, pain There are mild deformities of the posterolateral aspects of the right eighth and ninth ribs. The appearance suggests old healed fractures. No definite acute fracture is seen. There is no evidence of underlying pneumothorax. Vertebroplasty changes are noted at 2 levels in the midthoracic spine. IMPRESSION: No acute right rib abnormality is detected.
[2017-08-14] MEDS: SUCRALFATE 1 GM TABLET. PO SCH ×3 (11:59→21:33)
--- NOTE | 2017-08-14 12:22 | PDOC2 ---
NEUROLOGY CONSULT Date of Admission Date of Admission DATE: 08/14/17 TIME: 12:12 Reason for Consult Reason for Consult: Falls, neuropathy Referring Physician Referring Physician: Dr. Waldrop Source Source: Chart review, Patient History of Present Illness History of Present Illness The patient is a 62-year-old right-handed female admitted with one of several falls over the past few weeks. She gets dizzy but does not fully lose consciousness. She feels unsteady on her feet. She has had some foot numbness for quite a while and does have diabetes. She has chronic neck or back pain. She was here in June for a transient ischemic attack consisting of slurred speech and altered mental status. Carotid Doppler showed carotid artery disease but CT angiogram was negative for any significant abnormality as was MRI of the brain and echocardiogram. She has hit her head. There is no history of convulsive seizure. She has not figured out any inciting or mitigating features. Past Medical History Cardiovascular: CAD, HTN, Hyperlipidemia Pulmonary: COPD CENTRAL NERVOUS SYSTEM: TIA GI: GERD, Other (colonic polyps) Psych: Anxiety, Depression Musculoskeletal: low back pain (compression fracture), Osteoarthritis Infectious disease: Herpes simplex2 Endocrine: Diabetes, Osteoporosis Past Surgical History Past Surgical History: Cholecystectomy, Total knee replacement (left), Tubal Ligation, Other (coronary stent, bilateral carpal tunnel syndrome, kyphoplasty, removal of lipoma, lumbar) Family History Family History: Cancer Social History Social History , does not use tobacco, quit 15 years ago, still he occasionally uses alcohol Current Medications Current Medications Current Medications Sodium Chloride 500 ml @ 500 mls/hr 1X ONCE IV Last administered on 21:51; Start 08/13/17 at 22:00; Stop 08/13/17 at 22:59; Status DC Ondansetron HCl (Zofran) 4 mg PRN Q8HRS PRN IV NAUSEA/VOMITING; Start 08/13/17 at 22:45; Stop 08/14/17 at 22:44 Fentanyl Citrate (Fentanyl 2ml Vial) 50 mcg PRN Q2HR PRN IV SEVERE PAIN; Start 08/13/17 at 22:45; Stop 08/14/17 at 22:44 Sodium Chloride 1,000 ml @ 100 mls/hr Q10H IV Last administered on 08/14/17 10:04; Start 08/13/17 at 22:32; Stop 08/14/17 at 22:31 Acetaminophen (Tylenol) 650 mg PRN Q4HRS PRN PO FEVER; Start 08/13/17 at 22:45 ; Stop 08/14/17 at 22:44 Ceftriaxone Sodium 1 gm/ Sodium Chloride 50 ml @ 100 mls/hr Q24H IV ; Start at 23:00 Ceftriaxone Sodium 50 ml @ 100 mls/hr 1X ONCE IV Last administered on 00:41; Start 08/13/17 at 23:30; Stop 08/13/17 at 23:59; Status DC Amlodipine Besylate (Norvasc) 5 mg DAILY PO Last administered on 08/14/17 09: 56; Start 08/14/17 at 09:00 Aspirin (Ecotrin) 81 mg DAILYWBKFT PO Last administered on 08/14/17 09:56; Start 08/14/17 at 09:00 Atorvastatin Calcium (Lipitor) 20 mg QHS PO ; Start 08/14/17 at 21:00 Insulin Detemir (Levemir) 7 units QHS SQ ; Start 08/14/17 at 21:00 Albuterol/ Ipratropium (Duoneb) 3 ml QID NEB ; Start 08/14/17 at 09:00; Status UNV Albuterol/ Ipratropium (Duoneb) 3 ml RTQID NEB Last administered on 08/14/17 10:44; Start 08/14/17 at 12:00 Isosorbide Mononitrate (Imdur) 30 mg DAILY PO Last administered on 08/14/17 09 :56; Start 08/14/17 at 09:00 Levothyroxine Sodium (Synthroid) 88 mcg DAILY06 PO Last administered on 09:54; Start 08/14/17 at 09:00 Metformin HCl (Glucophage) 1,000 mg BIDWMEALS PO Last administered on 09:55; Start 08/14/17 at 09:00 Metoprolol Succinate (Toprol Xl) 50 mg DAILY PO Last administered on 08/14/17 09:55; Start 08/14/17 at 09:00 Prasugrel (Effient) 10 mg DAILYWBKFT PO Last administered on 08/14/17 09:55; Start 08/14/17 at 09:00 Sucralfate (Carafate) 1 gm QIDACHS PO Last administered on 08/14/17 11:59; Start 08/14/17 at 11:30 Valacyclovir HCl (Valtrex) 500 mg BID PO Last administered on 08/14/17 09:56; Start 08/14/17 at 09:00 Citalopram Hydrobromide (CeleXA) 40 mg DAILY PO Last administered on 08/14/17 09:55; Start 08/14/17 at 09:00 Pantoprazole Sodium (Protonix) 40 mg DAILYAC PO ; Start 08/15/17 at 07:30 Fenofibrate (Lofibra) 134 mg DAILY PO Last administered on 08/14/17 09:54; Start 08/14/17 at 09:00 Acetaminophen/ Hydrocodone Bitart (Lortab 5/325) 1 tab TID PRN PRN PO PAIN Last administered on 08/14/17 09:55; Start 08/14/17 at 09:30 Albuterol/ Ipratropium (Duoneb) 3 ml RTQID NEB ; Start 08/14/17 at 12:00; Status UNV Albuterol Sulfate (Ventolin Neb Soln) 2.5 mg PRN Q4HRS PRN NEB SHORTNESS OF BREATH; Start 08/14/17 at 11:00 Active Scripts Active Levemir Flextouch (Insulin Detemir) 100 Unit/1 Ml Insuln.pen 7 Units SQ QHS 30 Days Prednisone 10 Mg Tablet 10 Mg PO UD Take 3 tablets by mouth twice a day for 3 days, then take 2 tablets by mouth twice a day for 3 days, then take 1 tablet by mouth twice a day for 3 days, then take 1 tablet by mouth daily x 3 days, then stop. Duoneb 0.5-3(2.5) Mg/3 Ml (Albuterol/Ipratropium) 3 Ml Ampul.neb 3 Ml NEB QID 30 Days Spironolactone 50 Mg Tablet 1 Tab PO DAILY Duoneb 0.5-3(2.5) Mg/3 Ml (Albuterol/Ipratropium) 3 Ml Ampul.neb 3 Ml NEB RTQID 30 Days Amlodipine Besylate 2.5 Mg Tablet 5 Mg PO DAILY 30 Days Carafate (Sucralfate) 1 Gm Tablet 1 Gm PO QIDACHS 30 Days Effient (Prasugrel Hcl) 10 Mg Tablet 10 Mg PO DAILYWBKFT Reported Citalopram Hbr (Citalopram Hydrobromide) 40 Mg Tablet 40 Mg PO DAILY Diovan (Valsartan) 160 Mg Tablet 160 Mg PO DAILY Valacyclovir (Valacyclovir Hcl) 500 Mg Tablet 500 Mg PO BID Atorvastatin Calcium 20 Mg Tablet 20 Mg PO DAILY Isosorbide Mononitrate Er (Isosorbide Mononitrate) 30 Mg Tab.er.24h 30 Mg PO DAILY Levothyroxine Sodium 88 Mcg Tablet 88 Mcg PO DAILY06 Nexium Capsule (Esomeprazole Magnesium) 40 Mg Capsule.dr 1 Cap PO DAILY Metoprolol Succinate ( Xl ) (Metoprolol Succinate) 25 Mg Tab.er.24h 2 Tab PO DAILY Aspir 81 (Aspirin) 81 Mg Tablet.dr 1 Tab PO DAILY Fenofibrate (Fenofibrate Nanocrystallized) 145 Mg Tablet 160 Mg PO DAILY Metformin Hcl 1,000 Mg Tablet 1,000 Mg PO BID Allergies Allergies: Coded Allergies: levofloxacin (Verified Allergy, Intermediate, Hives, 03/05/17) ROS Review of System Patient denies fevers, chills, weight loss, dyspnea, angina, abdominal pain, change in bowels, or dysuria. 14 point review of systems is negative. Physical Exam Physical Examination PHYSICAL EXAMINATION: Vital signs: see above. General appearance is normal and in no acute distress. HEENT: Normocephalic and nontraumatic. Eyes, nose, ears, and throat are unremarkable. Neck is supple. No lymphadenopathy. No bruits are heard over the carotid artery. No crepitus. Extremities: Multiple ecchymoses and contusions NEUROLOGICAL EXAMINATION: Mental Status Examination: Alert. Oriented to time, place, and person. Answers questions and follows commends. Pupils are equal round and reactive to light and accommodation. Funduscopic exam: No papilledema. Extraocular movements are intact. Visual field exam shows no defect on the direct confrontation. No motor or sensory deficits on the facial exam. Uvula in the midline and the soft palate elevated symmetrically. No deviation of the tongue to any direction. Gross hearing is normal. Shoulder shrug normal. Muscle tone is normal. Muscle strength is 5. Deep tendon reflexes are 0-1+ all around. Plantar reflex is with flexion response bilaterally. [id number] test performance is accurate. Alternative movements are accurate. Gait: I had her take a few steps and she is apraxic. Sensory exam: Stocking-glove loss. No cerebellar signs are elicited. Vitals VITALS Vital Signs Date Time Temp Pulse Resp B/P (MAP) Pulse Ox O2 Delivery O2 Flow Rate FiO2 08/14/17 11:00 97.9 95 18 147/65 (92) 95 Nasal Cannula 2.0 97.9 Labs Labs Laboratory Tests Test 08/13/17 21:10 08/13/17 22:10 08/14/17 04:30 08/14/17 05:30 White Blood Count 11.4 x10^3/uL (4.0-11.0) 7.7 x10^3/uL (4.0-11.0) Red Blood Count 3.90 x10^6/uL (3.50-5.40) 3.56 x10^6/uL (3.50-5.40) Hemoglobin 11.2 g/dL (12.0-15.5) 10.4 g/dL (12.0-15.5) Hematocrit 34.7 % (36.0-47.0) 31.3 % (36.0-47.0) Mean Corpuscular Volume 89 fL (79-100) 88 fL (79-100) Mean Corpuscular Hemoglobin 29 pg (25-35) 29 pg (25-35) Mean Corpuscular Hemoglobin Concent 32 g/dL (31-37) 33 g/dL (31-37) Red Cell Distribution Width 14.9 % (11.5-14.5) 14.5 % (11.5-14.5) Platelet Count 336 x10^3/uL (140-400) 287 x10^3/uL (140-400) Neutrophils (%) (Auto) 80 % (31-73) 75 % (31-73) Lymphocytes (%) (Auto) 11 % (24-48) 17 % (24-48) Monocytes (%) (Auto) 8 % (0-9) 8 % (0-9) Eosinophils (%) (Auto) 1 % (0-3) 0 % (0-3) Basophils (%) (Auto) 0 % (0-3) 0 % (0-3) Neutrophils # (Auto) 9.2 x10^3uL (1.8-7.7) 5.8 x10^3uL (1.8-7.7) Lymphocytes # (Auto) 1.2 x10^3/uL (1.0-4.8) 1.3 x10^3/uL (1.0-4.8) Monocytes # (Auto) 0.9 x10^3/uL (0.0-1.1) 0.6 x10^3/uL (0.0-1.1) Eosinophils # (Auto) 0.1 x10^3/uL (0.0-0.7) 0.0 x10^3/uL (0.0-0.7) Basophils # (Auto) 0.0 x10^3/uL (0.0-0.2) 0.0 x10^3/uL (0.0-0.2) Sodium Level 141 mmol/L (136-145) 142 mmol/L (136-145) Potassium Level 3.8 mmol/L (3.5-5.1) 5.3 mmol/L (3.5-5.1) Chloride Level 101 mmol/L (98-107) 105 mmol/L (98-107) Carbon Dioxide Level 32 mmol/L (21-32) 33 mmol/L (21-32) Anion Gap 8 (6-14) 4 (6-14) Blood Urea Nitrogen 25 mg/dL (7-20) 20 mg/dL (7-20) Creatinine 1.3 mg/dL (0.6-1.0) 1.0 mg/dL (0.6-1.0) Estimated GFR (Cockcroft-Gault) 41.4 56.0 Glucose Level 168 mg/dL (70-99) 174 mg/dL (70-99) Calcium Level 8.7 mg/dL (8.5-10.1) 8.7 mg/dL (8.5-10.1) Total Bilirubin 0.4 mg/dL (0.2-1.0) Direct Bilirubin 0.1 mg/dL (0.0-0.2) Aspartate Amino Transf (AST/SGOT) 11 U/L (15-37) Alanine Aminotransferase (ALT/SGPT) 25 U/L (14-59) Alkaline Phosphatase 117 U/L (46-116) Troponin I Quantitative < 0.017 ng/mL (0.000-0.055) Total Protein 7.0 g/dL (6.4-8.2) Albumin 3.2 g/dL (3.4-5.0) Lipase 115 U/L (73-393) Urine Collection Type Unknown Urine Color Yellow Urine Clarity Clear Urine pH 5.5 Urine Specific [place] >=1.030 Urine Protein Negative mg/dL (NEG-TRACE) Urine Glucose (UA) Negative mg/dL (NEG) Urine Ketones (Stick) Negative mg/dL (NEG) Urine Blood Negative (NEG) Urine Nitrite Negative (NEG) Urine Bilirubin Small (NEG) Urine Urobilinogen Dipstick 1.0 mg/dL (0.2 mg/dL) Urine Leukocyte Esterase Large (NEG) Urine RBC 0 /HPF (0-2) Urine WBC 20-40 /HPF (0-4) Urine Squamous Epithelial Cells Mod /LPF Urine Bacteria Few /HPF (0-FEW) Urine Hyaline Casts Few /HPF Urine Mucus Mod /LPF Vitamin B12 Level 207 pg/mL (247-911) Thyroid Stimulating Hormone (TSH) 0.167 uIU/mL (0.358-3.74) Erythrocyte Sedimentation Rate 15 (0-25) Test 08/14/17 07:53 08/14/17 11:19 Glucose (Fingerstick) 95 mg/dL (70-99) 155 mg/dL (70-99) Laboratory Tests Test 08/13/17 21:10 08/13/17 22:10 08/14/17 04:30 08/14/17 05:30 White Blood Count 11.4 x10^3/uL (4.0-11.0) 7.7 x10^3/uL (4.0-11.0) Red Blood Count 3.90 x10^6/uL (3.50-5.40) 3.56 x10^6/uL (3.50-5.40) Hemoglobin 11.2 g/dL (12.0-15.5) 10.4 g/dL (12.0-15.5) Hematocrit 34.7 % (36.0-47.0) 31.3 % (36.0-47.0) Mean Corpuscular Volume 89 fL (79-100) 88 fL (79-100) Mean Corpuscular Hemoglobin 29 pg (25-35) 29 pg (25-35) Mean Corpuscular Hemoglobin Concent 32 g/dL (31-37) 33 g/dL (31-37) Red Cell Distribution Width 14.9 % (11.5-14.5) 14.5 % (11.5-14.5) Platelet Count 336 x10^3/uL (140-400) 287 x10^3/uL (140-400) Neutrophils (%) (Auto) 80 % (31-73) 75 % (31-73) Lymphocytes (%) (Auto) 11 % (24-48) 17 % (24-48) Monocytes (%) (Auto) 8 % (0-9) 8 % (0-9) Eosinophils (%) (Auto) 1 % (0-3) 0 % (0-3) Basophils (%) (Auto) 0 % (0-3) 0 % (0-3) Neutrophils # (Auto) 9.2 x10^3uL (1.8-7.7) 5.8 x10^3uL (1.8-7.7) Lymphocytes # (Auto) 1.2 x10^3/uL (1.0-4.8) 1.3 x10^3/uL (1.0-4.8) Monocytes # (Auto) 0.9 x10^3/uL (0.0-1.1) 0.6 x10^3/uL (0.0-1.1) Eosinophils # (Auto) 0.1 x10^3/uL (0.0-0.7) 0.0 x10^3/uL (0.0-0.7) Basophils # (Auto) 0.0 x10^3/uL (0.0-0.2) 0.0 x10^3/uL (0.0-0.2) Sodium Level 141 mmol/L (136-145) 142 mmol/L (136-145) Potassium Level 3.8 mmol/L (3.5-5.1) 5.3 mmol/L (3.5-5.1) Chloride Level 101 mmol/L (98-107) 105 mmol/L (98-107) Carbon Dioxide Level 32 mmol/L (21-32) 33 mmol/L (21-32) Anion Gap 8 (6-14) 4 (6-14) Blood Urea Nitrogen 25 mg/dL (7-20) 20 mg/dL (7-20) Creatinine 1.3 mg/dL (0.6-1.0) 1.0 mg/dL (0.6-1.0) Estimated GFR (Cockcroft-Gault) 41.4 56.0 Glucose Level 168 mg/dL (70-99) 174 mg/dL (70-99) Calcium Level 8.7 mg/dL (8.5-10.1) 8.7 mg/dL (8.5-10.1) Total Bilirubin 0.4 mg/dL (0.2-1.0) Direct Bilirubin 0.1 mg/dL (0.0-0.2) Aspartate Amino Transf (AST/SGOT) 11 U/L (15-37) Alanine Aminotransferase (ALT/SGPT) 25 U/L (14-59) Alkaline Phosphatase 117 U/L (46-116) Troponin I Quantitative < 0.017 ng/mL (0.000-0.055) Total Protein 7.0 g/dL (6.4-8.2) Albumin 3.2 g/dL (3.4-5.0) Lipase 115 U/L (73-393) Urine Collection Type Unknown Urine Color Yellow Urine Clarity Clear Urine pH 5.5 Urine Specific [place] >=1.030 Urine Protein Negative mg/dL (NEG-TRACE) Urine Glucose (UA) Negative mg/dL (NEG) Urine Ketones (Stick) Negative mg/dL (NEG) Urine Blood Negative (NEG) Urine Nitrite Negative (NEG) Urine Bilirubin Small (NEG) Urine Urobilinogen Dipstick 1.0 mg/dL (0.2 mg/dL) Urine Leukocyte Esterase Large (NEG) Urine RBC 0 /HPF (0-2) Urine WBC 20-40 /HPF (0-4) Urine Squamous Epithelial Cells Mod /LPF Urine Bacteria Few /HPF (0-FEW) Urine Hyaline Casts Few /HPF Urine Mucus Mod /LPF Vitamin B12 Level 207 pg/mL (247-911) Thyroid Stimulating Hormone (TSH) 0.167 uIU/mL (0.358-3.74) Erythrocyte Sedimentation Rate 15 (0-25) Test 08/14/17 07:53 08/14/17 11:19 Glucose (Fingerstick) 95 mg/dL (70-99) 155 mg/dL (70-99) Images Images Head CT Comparison: August 12, 2017 Findings: No acute extra-axial or parenchymal hemorrhage is identified. There is no significant intra-axial mass effect, midline shift, or extra-axial fluid collection. The soni-white differentiation of the major vascular territories is preserved. The ventricles, sulci, and cisterns are within normal limits in size and configuration. The mastoid air cells and the visualized paranasal sinuses are aerated. There is no significant focal calvarial abnormality. Impression: 1. No acute intracranial abnormality is identified. Cervical spine CT Comparison: None Findings: No acute cervical spine fracture is identified. Vertebral body stature and AP alignment are within normal limits. Atlanto-axial distance is within normal limits. There is appropriate alignment of lateral masses of C1 relative to C2. Occipital condylar-C1 relationship is maintained. There is reversal of the lordotic curvature centered at C5-6. There is moderate to severe degenerative disc disease C5-C6 and to lesser degree at C4-5 and C6-7, spondylosis at the same levels. There is likely borderline narrowing of the central canal C5-6. There is multilevel facet and uncovertebral degenerative change which contributes to multilevel neural foramina compromise including more significant narrowing on the right at C4-5, C5-C6, and C6-7 and on the left at C3-4 and to a lesser degree on the left at C5-C6. There is emphysema of the visualized lung apices. Impression: 1. No acute cervical spine fracture is identified. 2. There is degenerative disc disease and spondylosis greatest C4-5 to C6-7. There is multilevel facet and uncovertebral degenerative change which contributes to multilevel cervical neural foramina compromise. Assessment/Plan Assessment/Plan Impression: Gait disorder related to diabetic neuropathy, rule out other causes of neuropathy. Bedside examination negative for central cause, vestibular disease, radiculopathy, or myelopathy. However, she did have recent transient ischemic attack with negative workup. Recommendations: Repeat brain MRI Laboratory studies for other causes of neuropathy Rehabilitation modalities Most likely she will need intermediate. Thank you for letting me help with the patient's care. YUN MAGALLON MD Aug 14, 2017 12:22
[2017-08-14 15:13] VITALS: BP 125/67
[2017-08-14] MEDS: CYANOCOBALAMIN (VITAMIN B-12) 1,000 MCG/ML VIAL IM SCH (16:16)
[2017-08-14 19:00] VITALS: BP 136/71
[2017-08-14] MEDS: ATORVASTATIN CALCIUM 20 MG TABLET PO SCH (21:33)
[2017-08-14] MEDS: INSULIN DETEMIR 300 UNITS/3 ML INSULN.PEN. SQ SCH (21:39)
[2017-08-14 23:00] VITALS: BP 130/70
[2017-08-15 03:00] VITALS: BP 120/71
[2017-08-15 03:59] LABS: HEMATOCRIT 29.9 % (36.0-47.0); HEMOGLOBIN 9.6 g/dL (12.0-15.5); RED BLOOD COUNT 3.33 x10^6/uL (3.50-5.40); RED CELL DISTRIBUTION WIDTH 14.8 % (11.5-14.5)
[2017-08-15 04:20] LABS: ALBUMIN 2.6 g/dL (3.4-5.0); ALBUMIN/GLOBULIN RATIO 0.9 (1.0-1.7); CALCIUM 7.8 mg/dL (8.5-10.1); TOTAL BILIRUBIN 0.2 mg/dL (0.2-1.0); TOTAL PROTEIN 5.5 g/dL (6.4-8.2)
[2017-08-15] MEDS: HYDROcodone/APAP 5/325MG 1 TAB TABLET PO PRN ×2 (05:06→17:23)
[2017-08-15] MEDS: LEVOTHYROXINE 88 MCG TABLET PO SCH (05:06)
[2017-08-15] MEDS: IPRATRPIUM/ALBUTEROL 0.5/2.5MG 3 ML NEBU. NEB SCH ×4 (07:01→19:52)
[2017-08-15 07:21] VITALS: BP 145/77
[2017-08-15] MEDS: ASPIRIN ENTERIC COATED 81 MG TABLET.DR. PO SCH (08:48)
[2017-08-15] MEDS: PRASUGREL 10 MG TABLET. PO SCH (08:49)
[2017-08-15] MEDS: CITALOPRAM 20 MG TABLET. PO SCH (08:49)
[2017-08-15] MEDS: FENOFIBRATE,MICRONIZED 134 MG CAPSULE PO SCH (08:49)
[2017-08-15] MEDS: valACYclovir 500 MG TABLET. PO SCH ×2 (08:49→21:31)
[2017-08-15] MEDS: PANTOPRAZOLE 40 MG TABLET.DR. PO SCH (08:49)
[2017-08-15] MEDS: amLODIPine BESYLATE 5 MG TABLET PO SCH (08:49)
[2017-08-15] MEDS: ISOSORBIDE MONONITRATE ER 30 MG TAB.ER.24H PO SCH (08:50)
[2017-08-15] MEDS: METOPROLOL SUCC 24HR ER 50 MG TAB.ER.24H. PO SCH (08:50)
[2017-08-15] MEDS: CYANOCOBALAMIN (VITAMIN B-12) 1,000 MCG/ML VIAL IM SCH (08:50)
[2017-08-15] MEDS: SUCRALFATE 1 GM TABLET. PO SCH ×4 (08:50→21:31)
--- NOTE | 2017-08-15 09:47 | PDOC ---
SUBJECTIVE Subjective pt off floor to have MRI Brain, no new problems reported, Neurology consult reviewed and appreciated OBJECTIVE Vital Signs Vital Signs Date Time Temp Pulse Resp B/P (MAP) Pulse Ox O2 Delivery O2 Flow Rate FiO2 08/15/17 08:50 70 145/77 08/15/17 08:50 70 145/77 08/15/17 08:49 70 145/77 08/15/17 07:21 97.7 70 20 145/77 (99) 99 Nasal Cannula 2.0 97.7 08/15/17 07:02 97 Nasal Cannula 3.0 08/15/17 06:06 97 Nasal Cannula 2.0 08/15/17 05:06 97 Nasal Cannula 2.0 08/15/17 03:00 97.9 71 20 120/71 (87) 97 Nasal Cannula 2.0 97.9 08/14/17 23:00 98.4 74 20 130/70 (90) 95 Nasal Cannula 2.0 98.4 08/14/17 22:03 94 Nasal Cannula 3.0 08/14/17 21:33 94 Nasal Cannula 3.0 08/14/17 20:00 Nasal Cannula 3.0 08/14/17 19:53 94 Nasal Cannula 3.0 08/14/17 19:37 92 Nasal Cannula 3.0 08/14/17 19:00 98.9 81 20 136/71 (92) 94 Nasal Cannula 2.0 98.9 08/14/17 15:13 97.9 78 18 125/67 (86) 92 Room Air 97.9 08/14/17 15:08 Nasal Cannula 3.0 08/14/17 11:00 97.9 95 18 147/65 (92) 95 Nasal Cannula 2.0 97.9 08/14/17 10:45 93 Nasal Cannula 3.0 08/14/17 09:56 83 164/90 08/14/17 09:56 83 164/90 08/14/17 09:55 97 Nasal Cannula 2.0 08/14/17 09:55 83 164/90 I & O Intake and Output 08/16/17 07:00 Intake Total 180 ml Balance 180 ml Intake Oral 180 ml PHYSICAL EXAM Physical Exam no change ASSESSMENT/PLAN Assessment/Plan 1-recurrent falls and recent TIA agree with repeat MRI 2-neuropathy probably contributing to the falls , B 12 pending , 3-acute on chronic renal failure improved with hydration 4-hyperkalemia will hold losartan and spironolactone, K+ better today , Bp stable continue to monitor will restart low dose ARB for diabetic nephropathy protection 5-COPD 7-coronary artery disease Problems: COMMENT Lab Laboratory Tests Test 08/14/17 11:19 08/14/17 16:07 08/14/17 21:28 08/15/17 03:49 Glucose (Fingerstick) 155 mg/dL (70-99) 158 mg/dL (70-99) 164 mg/dL (70-99) White Blood Count 6.0 x10^3/uL (4.0-11.0) Red Blood Count 3.33 x10^6/uL (3.50-5.40) Hemoglobin 9.6 g/dL (12.0-15.5) Hematocrit 29.9 % (36.0-47.0) Mean Corpuscular Volume 90 fL (79-100) Mean Corpuscular Hemoglobin 29 pg (25-35) Mean Corpuscular Hemoglobin Concent 32 g/dL (31-37) Red Cell Distribution Width 14.8 % (11.5-14.5) Platelet Count 239 x10^3/uL (140-400) Sodium Level 142 mmol/L (136-145) Potassium Level 4.0 mmol/L (3.5-5.1) Chloride Level 106 mmol/L (98-107) Carbon Dioxide Level 31 mmol/L (21-32) Anion Gap 5 (6-14) Blood Urea Nitrogen 18 mg/dL (7-20) Creatinine 1.0 mg/dL (0.6-1.0) Estimated GFR (Cockcroft-Gault) 56.0 BUN/Creatinine Ratio 18 (6-20) Glucose Level 178 mg/dL (70-99) Calcium Level 7.8 mg/dL (8.5-10.1) Total Bilirubin 0.2 mg/dL (0.2-1.0) Aspartate Amino Transf (AST/SGOT) 9 U/L (15-37) Alanine Aminotransferase (ALT/SGPT) 20 U/L (14-59) Alkaline Phosphatase 99 U/L (46-116) Total Protein 5.5 g/dL (6.4-8.2) Albumin 2.6 g/dL (3.4-5.0) Albumin/Globulin Ratio 0.9 (1.0-1.7) Serum Folate 9.47 ng/ml (3.2-20.0) Test 08/15/17 08:01 Glucose (Fingerstick) 98 mg/dL (70-99) AURA TEJEDA MD Aug 15, 2017 09:47
--- NOTE | 2017-08-15 10:41 | RAD ---
MRI of the brain without contrast 08/14/2017 Clinical History: Frequent falls and dizziness. Gait disorder. Recent TIA. Technique: Unenhanced T1-weighted sagittal and axial, T2-weighted axial and coronal and FLAIR, gradient echo and diffusion-weighted axial images of the brain were obtained. Findings: Comparison study is dated 07/10/2017. Additional comparison is made to patient's CT scan of the head dated 08/13/2017. There is generalized parenchymal atrophy. Patchy, confluent and multiple focal areas of increased signal intensity are seen within the periventricular and subcortical white matter of both cerebral hemispheres on the FLAIR and T2-weighted images consistent with areas of small vessel ischemic disease. No acute parenchymal abnormality is seen. No extra-axial fluid collection is seen. There is no MRI evidence of acute ischemia/infarction. The paranasal sinuses are essentially clear. There are small moderate-sized bilateral mastoid effusions, right greater than left. Normal flow voids are seen within the major vascular structures surrounding the brain parenchyma. Impression: No acute parenchymal abnormality is seen. Electronically signed by: Wale Ruiz MD (08/15/2017 10:37 AM) [id number]
[2017-08-15 11:00] VITALS: BP 131/77
[2017-08-15] MEDS: LOSARTAN POTASSIUM 50 MG TABLET. PO SCH (12:13)
--- NOTE | 2017-08-15 14:44 | PDOC ---
PROGRESS NOTES Assessment Problems Medical Problems: (1) Fall Status: Acute (2) Head injury Status: Acute (3) Right shoulder pain Status: Acute (4) UTI (urinary tract infection) Status: Acute Gait disorder related to diabetic neuropathy, rule out other causes of neuropathy. Bedside examination and repeat brain MRI negative for central cause , vestibular disease, radiculopathy, or myelopathy. Low B12 level Recent transient ischemic attack with negative workup. Plan 1000 g B12 daily for 3 days and then monthly thereafter Rehabilitation modalities Needs assisted, PT concurs. Subjective No complaints Objective Vital Signs Date Time Temp Pulse Resp B/P (MAP) Pulse Ox O2 Delivery O2 Flow Rate FiO2 08/15/17 12:13 74 131/77 08/15/17 11:35 98 Nasal Cannula 2.0 08/15/17 11:00 98.0 20 98.0 Intake and Output 08/16/17 07:00 Intake Total 180 ml Balance 180 ml Intake Oral 180 ml PHYSICAL EXAM Alert. Oriented to time, place and person. PERRL. EOMI. CN: no focal findings. Muscle tone: normal. Muscle strength: 5/5 DTR: 0-1+ Plantar reflex: flexor Gait: not examined in bed. Sensory exam: stocking-glove loss. No cerebellar signs elicited. Review of Relevant I have reviewed the following items haroldo (where applicable) has been applied. Labs Laboratory Tests Test 08/13/17 21:10 08/13/17 22:10 08/14/17 04:30 08/14/17 05:30 White Blood Count 11.4 x10^3/uL (4.0-11.0) 7.7 x10^3/uL (4.0-11.0) Red Blood Count 3.90 x10^6/uL (3.50-5.40) 3.56 x10^6/uL (3.50-5.40) Hemoglobin 11.2 g/dL (12.0-15.5) 10.4 g/dL (12.0-15.5) Hematocrit 34.7 % (36.0-47.0) 31.3 % (36.0-47.0) Mean Corpuscular Volume 89 fL (79-100) 88 fL (79-100) Mean Corpuscular Hemoglobin 29 pg (25-35) 29 pg (25-35) Mean Corpuscular Hemoglobin Concent 32 g/dL (31-37) 33 g/dL (31-37) Red Cell Distribution Width 14.9 % (11.5-14.5) 14.5 % (11.5-14.5) Platelet Count 336 x10^3/uL (140-400) 287 x10^3/uL (140-400) Neutrophils (%) (Auto) 80 % (31-73) 75 % (31-73) Lymphocytes (%) (Auto) 11 % (24-48) 17 % (24-48) Monocytes (%) (Auto) 8 % (0-9) 8 % (0-9) Eosinophils (%) (Auto) 1 % (0-3) 0 % (0-3) Basophils (%) (Auto) 0 % (0-3) 0 % (0-3) Neutrophils # (Auto) 9.2 x10^3uL (1.8-7.7) 5.8 x10^3uL (1.8-7.7) Lymphocytes # (Auto) 1.2 x10^3/uL (1.0-4.8) 1.3 x10^3/uL (1.0-4.8) Monocytes # (Auto) 0.9 x10^3/uL (0.0-1.1) 0.6 x10^3/uL (0.0-1.1) Eosinophils # (Auto) 0.1 x10^3/uL (0.0-0.7) 0.0 x10^3/uL (0.0-0.7) Basophils # (Auto) 0.0 x10^3/uL (0.0-0.2) 0.0 x10^3/uL (0.0-0.2) Sodium Level 141 mmol/L (136-145) 142 mmol/L (136-145) Potassium Level 3.8 mmol/L (3.5-5.1) 5.3 mmol/L (3.5-5.1) Chloride Level 101 mmol/L (98-107) 105 mmol/L (98-107) Carbon Dioxide Level 32 mmol/L (21-32) 33 mmol/L (21-32) Anion Gap 8 (6-14) 4 (6-14) Blood Urea Nitrogen 25 mg/dL (7-20) 20 mg/dL (7-20) Creatinine 1.3 mg/dL (0.6-1.0) 1.0 mg/dL (0.6-1.0) Estimated GFR (Cockcroft-Gault) 41.4 56.0 Glucose Level 168 mg/dL (70-99) 174 mg/dL (70-99) Calcium Level 8.7 mg/dL (8.5-10.1) 8.7 mg/dL (8.5-10.1) Total Bilirubin 0.4 mg/dL (0.2-1.0) Direct Bilirubin 0.1 mg/dL (0.0-0.2) Aspartate Amino Transf (AST/SGOT) 11 U/L (15-37) Alanine Aminotransferase (ALT/SGPT) 25 U/L (14-59) Alkaline Phosphatase 117 U/L (46-116) Troponin I Quantitative < 0.017 ng/mL (0.000-0.055) Total Protein 7.0 g/dL (6.4-8.2) Albumin 3.2 g/dL (3.4-5.0) Lipase 115 U/L (73-393) Urine Collection Type Unknown Urine Color Yellow Urine Clarity Clear Urine pH 5.5 Urine Specific [place] >=1.030 Urine Protein Negative mg/dL (NEG-TRACE) Urine Glucose (UA) Negative mg/dL (NEG) Urine Ketones (Stick) Negative mg/dL (NEG) Urine Blood Negative (NEG) Urine Nitrite Negative (NEG) Urine Bilirubin Small (NEG) Urine Urobilinogen Dipstick 1.0 mg/dL (0.2 mg/dL) Urine Leukocyte Esterase Large (NEG) Urine RBC 0 /HPF (0-2) Urine WBC 20-40 /HPF (0-4) Urine Squamous Epithelial Cells Mod /LPF Urine Bacteria Few /HPF (0-FEW) Urine Hyaline Casts Few /HPF Urine Mucus Mod /LPF Vitamin B12 Level 207 pg/mL (247-911) Thyroid Stimulating Hormone (TSH) 0.167 uIU/mL (0.358-3.74) Erythrocyte Sedimentation Rate 15 (0-25) Test 08/14/17 07:53 08/14/17 11:19 08/14/17 16:07 08/14/17 21:28 Glucose (Fingerstick) 95 mg/dL (70-99) 155 mg/dL (70-99) 158 mg/dL (70-99) 164 mg/dL (70-99) Test 08/15/17 03:49 08/15/17 08:01 08/15/17 11:45 White Blood Count 6.0 x10^3/uL (4.0-11.0) Red Blood Count 3.33 x10^6/uL (3.50-5.40) Hemoglobin 9.6 g/dL (12.0-15.5) Hematocrit 29.9 % (36.0-47.0) Mean Corpuscular Volume 90 fL (79-100) Mean Corpuscular Hemoglobin 29 pg (25-35) Mean Corpuscular Hemoglobin Concent 32 g/dL (31-37) Red Cell Distribution Width 14.8 % (11.5-14.5) Platelet Count 239 x10^3/uL (140-400) Sodium Level 142 mmol/L (136-145) Potassium Level 4.0 mmol/L (3.5-5.1) Chloride Level 106 mmol/L (98-107) Carbon Dioxide Level 31 mmol/L (21-32) Anion Gap 5 (6-14) Blood Urea Nitrogen 18 mg/dL (7-20) Creatinine 1.0 mg/dL (0.6-1.0) Estimated GFR (Cockcroft-Gault) 56.0 BUN/Creatinine Ratio 18 (6-20) Glucose Level 178 mg/dL (70-99) Calcium Level 7.8 mg/dL (8.5-10.1) Total Bilirubin 0.2 mg/dL (0.2-1.0) Aspartate Amino Transf (AST/SGOT) 9 U/L (15-37) Alanine Aminotransferase (ALT/SGPT) 20 U/L (14-59) Alkaline Phosphatase 99 U/L (46-116) Total Protein 5.5 g/dL (6.4-8.2) Albumin 2.6 g/dL (3.4-5.0) Albumin/Globulin Ratio 0.9 (1.0-1.7) Serum Folate 9.47 ng/ml (3.2-20.0) Glucose (Fingerstick) 98 mg/dL (70-99) 93 mg/dL (70-99) Laboratory Tests Test 08/14/17 16:07 08/14/17 21:28 08/15/17 03:49 08/15/17 08:01 Glucose (Fingerstick) 158 mg/dL (70-99) 164 mg/dL (70-99) 98 mg/dL (70-99) White Blood Count 6.0 x10^3/uL (4.0-11.0) Red Blood Count 3.33 x10^6/uL (3.50-5.40) Hemoglobin 9.6 g/dL (12.0-15.5) Hematocrit 29.9 % (36.0-47.0) Mean Corpuscular Volume 90 fL (79-100) Mean Corpuscular Hemoglobin 29 pg (25-35) Mean Corpuscular Hemoglobin Concent 32 g/dL (31-37) Red Cell Distribution Width 14.8 % (11.5-14.5) Platelet Count 239 x10^3/uL (140-400) Sodium Level 142 mmol/L (136-145) Potassium Level 4.0 mmol/L (3.5-5.1) Chloride Level 106 mmol/L (98-107) Carbon Dioxide Level 31 mmol/L (21-32) Anion Gap 5 (6-14) Blood Urea Nitrogen 18 mg/dL (7-20) Creatinine 1.0 mg/dL (0.6-1.0) Estimated GFR (Cockcroft-Gault) 56.0 BUN/Creatinine Ratio 18 (6-20) Glucose Level 178 mg/dL (70-99) Calcium Level 7.8 mg/dL (8.5-10.1) Total Bilirubin 0.2 mg/dL (0.2-1.0) Aspartate Amino Transf (AST/SGOT) 9 U/L (15-37) Alanine Aminotransferase (ALT/SGPT) 20 U/L (14-59) Alkaline Phosphatase 99 U/L (46-116) Total Protein 5.5 g/dL (6.4-8.2) Albumin 2.6 g/dL (3.4-5.0) Albumin/Globulin Ratio 0.9 (1.0-1.7) Serum Folate 9.47 ng/ml (3.2-20.0) Test 08/15/17 11:45 Glucose (Fingerstick) 93 mg/dL (70-99) Microbiology 08/13/17 Urine Culture - Preliminary, Resulted 08/13/17 Urine Culture Result 1 (LEANN) - Preliminary, Resulted Medications Current Medications Sodium Chloride 500 ml @ 500 mls/hr 1X ONCE IV Last administered on 21:51; Start 08/13/17 at 22:00; Stop 08/13/17 at 22:59; Status DC Ondansetron HCl (Zofran) 4 mg PRN Q8HRS PRN IV NAUSEA/VOMITING; Start 08/13/17 at 22:45; Stop 08/14/17 at 22:44; Status DC Fentanyl Citrate (Fentanyl 2ml Vial) 50 mcg PRN Q2HR PRN IV SEVERE PAIN Last administered on 08/14/17 21:33; Start 08/13/17 at 22:45; Stop 08/14/17 at 22:44 ; Status DC Sodium Chloride 1,000 ml @ 100 mls/hr Q10H IV Last administered on 08/14/17 19:38; Start 08/13/17 at 22:32; Stop 08/14/17 at 22:31; Status DC Acetaminophen (Tylenol) 650 mg PRN Q4HRS PRN PO FEVER; Start 08/13/17 at 22:45 ; Stop 08/14/17 at 22:44; Status DC Ceftriaxone Sodium 1 gm/ Sodium Chloride 50 ml @ 100 mls/hr Q24H IV Last administered on 08/14/17 23:07; Start 08/14/17 at 23:00 Ceftriaxone Sodium 50 ml @ 100 mls/hr 1X ONCE IV Last administered on 00:41; Start 08/13/17 at 23:30; Stop 08/13/17 at 23:59; Status DC Amlodipine Besylate (Norvasc) 5 mg DAILY PO Last administered on 08/15/17 08: 49; Start 08/14/17 at 09:00 Aspirin (Ecotrin) 81 mg DAILYWBKFT PO Last administered on 08/15/17 08:48; Start 08/14/17 at 09:00 Atorvastatin Calcium (Lipitor) 20 mg QHS PO Last administered on 08/14/17 21: 33; Start 08/14/17 at 21:00 Insulin Detemir (Levemir) 7 units QHS SQ Last administered on 08/14/17 21:39; Start 08/14/17 at 21:00 Albuterol/ Ipratropium (Duoneb) 3 ml QID NEB ; Start 08/14/17 at 09:00; Status UNV Albuterol/ Ipratropium (Duoneb) 3 ml RTQID NEB Last administered on 08/15/17 11:35; Start 08/14/17 at 12:00 Isosorbide Mononitrate (Imdur) 30 mg DAILY PO Last administered on 08/15/17 08 :50; Start 08/14/17 at 09:00 Levothyroxine Sodium (Synthroid) 88 mcg DAILY06 PO Last administered on 05:06; Start 08/14/17 at 09:00 Metformin HCl (Glucophage) 1,000 mg BIDWMEALS PO Last administered on 08:50; Start 08/14/17 at 09:00 Metoprolol Succinate (Toprol Xl) 50 mg DAILY PO Last administered on 08/15/17 08:50; Start 08/14/17 at 09:00 Prasugrel (Effient) 10 mg DAILYWBKFT PO Last administered on 08/15/17 08:49; Start 08/14/17 at 09:00 Sucralfate (Carafate) 1 gm QIDACHS PO Last administered on 08/15/17 12:13; Start 08/14/17 at 11:30 Valacyclovir HCl (Valtrex) 500 mg BID PO Last administered on 08/15/17 08:49; Start 08/14/17 at 09:00 Citalopram Hydrobromide (CeleXA) 40 mg DAILY PO Last administered on 08/15/17 08:49; Start 08/14/17 at 09:00 Pantoprazole Sodium (Protonix) 40 mg DAILYAC PO Last administered on 08/15/17 08:49; Start 08/15/17 at 07:30 Fenofibrate (Lofibra) 134 mg DAILY PO Last administered on 08/15/17 08:49; Start 08/14/17 at 09:00 Acetaminophen/ Hydrocodone Bitart (Lortab 5/325) 1 tab TID PRN PRN PO PAIN Last administered on 08/15/17 05:06; Start 08/14/17 at 09:30 Albuterol/ Ipratropium (Duoneb) 3 ml RTQID NEB ; Start 08/14/17 at 12:00; Status UNV Albuterol Sulfate (Ventolin Neb Soln) 2.5 mg PRN Q4HRS PRN NEB SHORTNESS OF BREATH; Start 08/14/17 at 11:00 Cyanocobalamin (Vitamin B-12) 1,000 mcg DAILY IM Last administered on 08:50; Start 08/14/17 at 12:30; Stop 08/16/17 at 09:01 Losartan Potassium (Cozaar) 50 mg DAILY PO Last administered on 08/15/17 12:13 ; Start 08/15/17 at 10:30 Active Scripts Active Levemir Flextouch (Insulin Detemir) 100 Unit/1 Ml Insuln.pen 7 Units SQ QHS 30 Days Prednisone 10 Mg Tablet 10 Mg PO UD Take 3 tablets by mouth twice a day for 3 days, then take 2 tablets by mouth twice a day for 3 days, then take 1 tablet by mouth twice a day for 3 days, then take 1 tablet by mouth daily x 3 days, then stop. Duoneb 0.5-3(2.5) Mg/3 Ml (Albuterol/Ipratropium) 3 Ml Ampul.neb 3 Ml NEB QID 30 Days Spironolactone 50 Mg Tablet 1 Tab PO DAILY Duoneb 0.5-3(2.5) Mg/3 Ml (Albuterol/Ipratropium) 3 Ml Ampul.neb 3 Ml NEB RTQID 30 Days Amlodipine Besylate 2.5 Mg Tablet 5 Mg PO DAILY 30 Days Carafate (Sucralfate) 1 Gm Tablet 1 Gm PO QIDACHS 30 Days Effient (Prasugrel Hcl) 10 Mg Tablet 10 Mg PO DAILYWBKFT Reported Citalopram Hbr (Citalopram Hydrobromide) 40 Mg Tablet 40 Mg PO DAILY Diovan (Valsartan) 160 Mg Tablet 160 Mg PO DAILY Valacyclovir (Valacyclovir Hcl) 500 Mg Tablet 500 Mg PO BID Atorvastatin Calcium 20 Mg Tablet 20 Mg PO DAILY Isosorbide Mononitrate Er (Isosorbide Mononitrate) 30 Mg Tab.er.24h 30 Mg PO DAILY Levothyroxine Sodium 88 Mcg Tablet 88 Mcg PO DAILY06 Nexium Capsule (Esomeprazole Magnesium) 40 Mg Capsule. 1 Cap PO DAILY Metoprolol Succinate ( Xl ) (Metoprolol Succinate) 25 Mg Tab.er.24h 2 Tab PO DAILY Aspir 81 (Aspirin) 81 Mg Tablet. 1 Tab PO DAILY Fenofibrate (Fenofibrate Nanocrystallized) 145 Mg Tablet 160 Mg PO DAILY Metformin Hcl 1,000 Mg Tablet 1,000 Mg PO BID Vitals/I & O Vital Sign - Last 24 Hours 08/14/17 08/14/17 08/14/17 08/14/17 15:08 15:13 19:00 19:37 Temp 97.9 98.9 97.9 98.9 Pulse 78 81 Resp 18 20 B/P (MAP) 125/67 (86) 136/71 (92) Pulse Ox 92 94 92 O2 Delivery Nasal Cannula Room Air Nasal Cannula Nasal Cannula O2 Flow Rate 3.0 2.0 3.0 08/14/17 08/14/17 08/14/17 08/14/17 19:53 20:00 21:33 22:03 Pulse Ox 94 94 94 O2 Delivery Nasal Cannula Nasal Cannula Nasal Cannula Nasal Cannula O2 Flow Rate 3.0 3.0 3.0 3.0 08/14/17 08/15/17 08/15/17 08/15/17 23:00 03:00 05:06 06:06 Temp 98.4 97.9 98.4 97.9 Pulse 74 71 Resp 20 20 B/P (MAP) 130/70 (90) 120/71 (87) Pulse Ox 95 97 97 97 O2 Delivery Nasal Cannula Nasal Cannula Nasal Cannula Nasal Cannula O2 Flow Rate 2.0 2.0 2.0 2.0 08/15/17 08/15/17 08/15/17 08/15/17 07:02 07:21 08:10 08:49 Temp 97.7 97.7 Pulse 70 70 Resp 20 B/P (MAP) 145/77 (99) 145/77 Pulse Ox 97 99 O2 Delivery Nasal Cannula Nasal Cannula Nasal Cannula O2 Flow Rate 3.0 2.0 2.0 08/15/17 08/15/17 08/15/17 08/15/17 08:50 08:50 11:00 11:35 Temp 98.0 98.0 Pulse 70 70 74 Resp 20 B/P (MAP) 145/77 145/77 131/77 (95) Pulse Ox 95 98 O2 Delivery Nasal Cannula Nasal Cannula O2 Flow Rate 3.0 2.0 08/15/17 12:13 Pulse 74 B/P (MAP) 131/77 Intake and Output 08/15/17 08/15/17 08/16/17 15:00 23:00 07:00 Intake Total 180 ml Balance 180 ml YUN MAGALLON MD Aug 15, 2017 14:44
[2017-08-15 15:04] VITALS: BP 137/83
[2017-08-15 19:35] VITALS: BP 147/73
[2017-08-15] MEDS: ATORVASTATIN CALCIUM 20 MG TABLET PO SCH (21:31)
[2017-08-15] MEDS: INSULIN DETEMIR 300 UNITS/3 ML INSULN.PEN. SQ SCH (21:35)
[2017-08-15 22:22] VITALS: BP 139/70
[2017-08-16 02:58] VITALS: BP 142/63
[2017-08-16] MEDS: HYDROcodone/APAP 5/325MG 1 TAB TABLET PO PRN ×2 (03:51→08:36)
[2017-08-16 04:44] LABS: HEMATOCRIT 32.1 % (36.0-47.0); HEMOGLOBIN 10.5 g/dL (12.0-15.5); RED BLOOD COUNT 3.63 x10^6/uL (3.50-5.40); RED CELL DISTRIBUTION WIDTH 14.5 % (11.5-14.5); WHITE BLOOD COUNT 6.5 x10^3/uL (4.0-11.0)
[2017-08-16 04:58] LABS: CALCIUM 8.7 mg/dL (8.5-10.1); CREATININE 1.1 mg/dL (0.6-1.0); GFR 50.2; POTASSIUM 4.8 mmol/L (3.5-5.1)
[2017-08-16] MEDS: PANTOPRAZOLE 40 MG TABLET.DR. PO SCH (06:31)
[2017-08-16] MEDS: LEVOTHYROXINE 88 MCG TABLET PO SCH (06:31)
[2017-08-16] MEDS: SUCRALFATE 1 GM TABLET. PO SCH ×2 (06:31→12:02)
[2017-08-16 07:00] VITALS: BP 149/75
[2017-08-16] MEDS: IPRATRPIUM/ALBUTEROL 0.5/2.5MG 3 ML NEBU. NEB SCH ×2 (08:15→11:52)
[2017-08-16] MEDS: amLODIPine BESYLATE 5 MG TABLET PO SCH (08:33)
[2017-08-16] MEDS: METOPROLOL SUCC 24HR ER 50 MG TAB.ER.24H. PO SCH (08:34)
[2017-08-16] MEDS: CITALOPRAM 20 MG TABLET. PO SCH (08:34)
[2017-08-16] MEDS: valACYclovir 500 MG TABLET. PO SCH (08:35)
[2017-08-16] MEDS: LOSARTAN POTASSIUM 50 MG TABLET. PO SCH (08:35)
[2017-08-16] MEDS: PRASUGREL 10 MG TABLET. PO SCH (08:35)
[2017-08-16] MEDS: FENOFIBRATE,MICRONIZED 134 MG CAPSULE PO SCH (08:35)
[2017-08-16] MEDS: ASPIRIN ENTERIC COATED 81 MG TABLET.DR. PO SCH (08:36)
[2017-08-16] MEDS: ISOSORBIDE MONONITRATE ER 30 MG TAB.ER.24H PO SCH (08:36)
[2017-08-16] MEDS: CYANOCOBALAMIN (VITAMIN B-12) 1,000 MCG/ML VIAL IM SCH (08:37)
--- NOTE | 2017-08-16 08:57 | PDOC ---
Provider Note Provider Note feels better off some bp meds- tsh low so reduce dose, bmp good, B12 on board- cont same, rehab FREDI BAEZ MD Aug 16, 2017 08:57
--- NOTE | 2017-08-16 10:21 | PDOC ---
PROGRESS NOTES Assessment Problems Medical Problems: (1) Fall Status: Acute (2) Head injury Status: Acute (3) Right shoulder pain Status: Acute (4) UTI (urinary tract infection) Status: Acute Gait disorder related to diabetic neuropathy, rule out other causes of neuropathy. Bedside examination and repeat brain MRI negative for central cause , vestibular disease, radiculopathy, or myelopathy. Low B12 level Recent transient ischemic attack with negative workup. Plan 1000 g B12 daily for 3 days and then monthly thereafter Rehabilitation modalities halfway, okay for discharge Subjective No complaints Objective Vital Signs Date Time Temp Pulse Resp B/P (MAP) Pulse Ox O2 Delivery O2 Flow Rate FiO2 08/16/17 09:36 98 Nasal Cannula 2.0 08/16/17 08:36 76 149/75 08/16/17 07:00 97.9 20 97.9 PHYSICAL EXAM Alert. Oriented to time, place and person. PERRL. EOMI. CN: no focal findings. Muscle tone: normal. Muscle strength: 5/5 DTR: 0-1+ Plantar reflex: flexor Gait: not examined in bed. Sensory exam: stocking-glove loss. No cerebellar signs elicited. Review of Relevant I have reviewed the following items haroldo (where applicable) has been applied. Labs Laboratory Tests Test 08/14/17 11:19 08/14/17 16:07 08/14/17 21:28 08/15/17 03:49 Glucose (Fingerstick) 155 mg/dL (70-99) 158 mg/dL (70-99) 164 mg/dL (70-99) White Blood Count 6.0 x10^3/uL (4.0-11.0) Red Blood Count 3.33 x10^6/uL (3.50-5.40) Hemoglobin 9.6 g/dL (12.0-15.5) Hematocrit 29.9 % (36.0-47.0) Mean Corpuscular Volume 90 fL (79-100) Mean Corpuscular Hemoglobin 29 pg (25-35) Mean Corpuscular Hemoglobin Concent 32 g/dL (31-37) Red Cell Distribution Width 14.8 % (11.5-14.5) Platelet Count 239 x10^3/uL (140-400) Sodium Level 142 mmol/L (136-145) Potassium Level 4.0 mmol/L (3.5-5.1) Chloride Level 106 mmol/L (98-107) Carbon Dioxide Level 31 mmol/L (21-32) Anion Gap 5 (6-14) Blood Urea Nitrogen 18 mg/dL (7-20) Creatinine 1.0 mg/dL (0.6-1.0) Estimated GFR (Cockcroft-Gault) 56.0 BUN/Creatinine Ratio 18 (6-20) Glucose Level 178 mg/dL (70-99) Calcium Level 7.8 mg/dL (8.5-10.1) Total Bilirubin 0.2 mg/dL (0.2-1.0) Aspartate Amino Transf (AST/SGOT) 9 U/L (15-37) Alanine Aminotransferase (ALT/SGPT) 20 U/L (14-59) Alkaline Phosphatase 99 U/L (46-116) Total Protein 5.5 g/dL (6.4-8.2) Albumin 2.6 g/dL (3.4-5.0) Albumin/Globulin Ratio 0.9 (1.0-1.7) Serum Folate 9.47 ng/ml (3.2-20.0) Test 08/15/17 08:01 08/15/17 11:45 08/15/17 17:26 08/15/17 21:30 Glucose (Fingerstick) 98 mg/dL (70-99) 93 mg/dL (70-99) 119 mg/dL (70-99) 174 mg/dL (70-99) Test 08/16/17 04:15 08/16/17 07:20 White Blood Count 6.5 x10^3/uL (4.0-11.0) Red Blood Count 3.63 x10^6/uL (3.50-5.40) Hemoglobin 10.5 g/dL (12.0-15.5) Hematocrit 32.1 % (36.0-47.0) Mean Corpuscular Volume 88 fL (79-100) Mean Corpuscular Hemoglobin 29 pg (25-35) Mean Corpuscular Hemoglobin Concent 33 g/dL (31-37) Red Cell Distribution Width 14.5 % (11.5-14.5) Platelet Count 254 x10^3/uL (140-400) Sodium Level 142 mmol/L (136-145) Potassium Level 4.8 mmol/L (3.5-5.1) Chloride Level 105 mmol/L (98-107) Carbon Dioxide Level 35 mmol/L (21-32) Anion Gap 2 (6-14) Blood Urea Nitrogen 11 mg/dL (7-20) Creatinine 1.1 mg/dL (0.6-1.0) Estimated GFR (Cockcroft-Gault) 50.2 Glucose Level 100 mg/dL (70-99) Calcium Level 8.7 mg/dL (8.5-10.1) Glucose (Fingerstick) 84 mg/dL (70-99) Laboratory Tests Test 08/15/17 11:45 08/15/17 17:26 08/15/17 21:30 08/16/17 04:15 Glucose (Fingerstick) 93 mg/dL (70-99) 119 mg/dL (70-99) 174 mg/dL (70-99) White Blood Count 6.5 x10^3/uL (4.0-11.0) Red Blood Count 3.63 x10^6/uL (3.50-5.40) Hemoglobin 10.5 g/dL (12.0-15.5) Hematocrit 32.1 % (36.0-47.0) Mean Corpuscular Volume 88 fL (79-100) Mean Corpuscular Hemoglobin 29 pg (25-35) Mean Corpuscular Hemoglobin Concent 33 g/dL (31-37) Red Cell Distribution Width 14.5 % (11.5-14.5) Platelet Count 254 x10^3/uL (140-400) Sodium Level 142 mmol/L (136-145) Potassium Level 4.8 mmol/L (3.5-5.1) Chloride Level 105 mmol/L (98-107) Carbon Dioxide Level 35 mmol/L (21-32) Anion Gap 2 (6-14) Blood Urea Nitrogen 11 mg/dL (7-20) Creatinine 1.1 mg/dL (0.6-1.0) Estimated GFR (Cockcroft-Gault) 50.2 Glucose Level 100 mg/dL (70-99) Calcium Level 8.7 mg/dL (8.5-10.1) Test 08/16/17 07:20 Glucose (Fingerstick) 84 mg/dL (70-99) Microbiology 08/13/17 Urine Culture - Preliminary, Resulted 08/13/17 Urine Culture Result 1 (LEANN) - Preliminary, Resulted Medications Current Medications Sodium Chloride 500 ml @ 500 mls/hr 1X ONCE IV Last administered on 21:51; Start 08/13/17 at 22:00; Stop 08/13/17 at 22:59; Status DC Ondansetron HCl (Zofran) 4 mg PRN Q8HRS PRN IV NAUSEA/VOMITING; Start 08/13/17 at 22:45; Stop 08/14/17 at 22:44; Status DC Fentanyl Citrate (Fentanyl 2ml Vial) 50 mcg PRN Q2HR PRN IV SEVERE PAIN Last administered on 08/14/17 21:33; Start 08/13/17 at 22:45; Stop 08/14/17 at 22:44 ; Status DC Sodium Chloride 1,000 ml @ 100 mls/hr Q10H IV Last administered on 08/14/17 19:38; Start 08/13/17 at 22:32; Stop 08/14/17 at 22:31; Status DC Acetaminophen (Tylenol) 650 mg PRN Q4HRS PRN PO FEVER; Start 08/13/17 at 22:45 ; Stop 08/14/17 at 22:44; Status DC Ceftriaxone Sodium 1 gm/ Sodium Chloride 50 ml @ 100 mls/hr Q24H IV Last administered on 08/15/17 23:08; Start 08/14/17 at 23:00; Stop 08/16/17 at 08:23 ; Status DC Ceftriaxone Sodium 50 ml @ 100 mls/hr 1X ONCE IV Last administered on 00:41; Start 08/13/17 at 23:30; Stop 08/13/17 at 23:59; Status DC Amlodipine Besylate (Norvasc) 5 mg DAILY PO Last administered on 08/16/17 08: 33; Start 08/14/17 at 09:00 Aspirin (Ecotrin) 81 mg DAILYWBKFT PO Last administered on 08/16/17 08:36; Start 08/14/17 at 09:00 Atorvastatin Calcium (Lipitor) 20 mg QHS PO Last administered on 08/15/17 21: 31; Start 08/14/17 at 21:00 Insulin Detemir (Levemir) 7 units QHS SQ Last administered on 08/15/17 21:35; Start 08/14/17 at 21:00 Albuterol/ Ipratropium (Duoneb) 3 ml QID NEB ; Start 08/14/17 at 09:00; Status UNV Albuterol/ Ipratropium (Duoneb) 3 ml RTQID NEB Last administered on 08/16/17 08:15; Start 08/14/17 at 12:00 Isosorbide Mononitrate (Imdur) 30 mg DAILY PO Last administered on 08/16/17 08 :36; Start 08/14/17 at 09:00 Levothyroxine Sodium (Synthroid) 88 mcg DAILY06 PO Last administered on 06:31; Start 08/14/17 at 09:00; Stop 08/16/17 at 08:19; Status DC Metformin HCl (Glucophage) 1,000 mg BIDWMEALS PO Last administered on 08:35; Start 08/14/17 at 09:00 Metoprolol Succinate (Toprol Xl) 50 mg DAILY PO Last administered on 08/16/17 08:34; Start 08/14/17 at 09:00 Prasugrel (Effient) 10 mg DAILYWBKFT PO Last administered on 08/16/17 08:35; Start 08/14/17 at 09:00 Sucralfate (Carafate) 1 gm QIDACHS PO Last administered on 08/16/17 06:31; Start 08/14/17 at 11:30 Valacyclovir HCl (Valtrex) 500 mg BID PO Last administered on 08/16/17 08:35; Start 08/14/17 at 09:00 Citalopram Hydrobromide (CeleXA) 40 mg DAILY PO Last administered on 08/16/17 08:34; Start 08/14/17 at 09:00 Pantoprazole Sodium (Protonix) 40 mg DAILYAC PO Last administered on 08/16/17 06:31; Start 08/15/17 at 07:30 Fenofibrate (Lofibra) 134 mg DAILY PO Last administered on 08/16/17 08:35; Start 08/14/17 at 09:00 Acetaminophen/ Hydrocodone Bitart (Lortab 5/325) 1 tab TID PRN PRN PO PAIN Last administered on 08/16/17 08:36; Start 08/14/17 at 09:30 Albuterol/ Ipratropium (Duoneb) 3 ml RTQID NEB ; Start 08/14/17 at 12:00; Status UNV Albuterol Sulfate (Ventolin Neb Soln) 2.5 mg PRN Q4HRS PRN NEB SHORTNESS OF BREATH; Start 08/14/17 at 11:00 Cyanocobalamin (Vitamin B-12) 1,000 mcg DAILY IM Last administered on 08:37; Start 08/14/17 at 12:30; Stop 08/16/17 at 09:01; Status DC Losartan Potassium (Cozaar) 50 mg DAILY PO Last administered on 08/16/17 08:35 ; Start 08/15/17 at 10:30 Levothyroxine Sodium (Synthroid) 50 mcg DAILY07 PO ; Start 08/17/17 at 07:00 Active Scripts Active Levemir Flextouch (Insulin Detemir) 100 Unit/1 Ml Insuln.pen 7 Units SQ QHS 30 Days Prednisone 10 Mg Tablet 10 Mg PO UD Take 3 tablets by mouth twice a day for 3 days, then take 2 tablets by mouth twice a day for 3 days, then take 1 tablet by mouth twice a day for 3 days, then take 1 tablet by mouth daily x 3 days, then stop. Duoneb 0.5-3(2.5) Mg/3 Ml (Albuterol/Ipratropium) 3 Ml Ampul.neb 3 Ml NEB QID 30 Days Spironolactone 50 Mg Tablet 1 Tab PO DAILY Duoneb 0.5-3(2.5) Mg/3 Ml (Albuterol/Ipratropium) 3 Ml Ampul.neb 3 Ml NEB RTQID 30 Days Amlodipine Besylate 2.5 Mg Tablet 5 Mg PO DAILY 30 Days Carafate (Sucralfate) 1 Gm Tablet 1 Gm PO QIDACHS 30 Days Effient (Prasugrel Hcl) 10 Mg Tablet 10 Mg PO [id number] Reported Citalopram Hbr (Citalopram Hydrobromide) 40 Mg Tablet 40 Mg PO DAILY Diovan (Valsartan) 160 Mg Tablet 160 Mg PO DAILY Valacyclovir (Valacyclovir Hcl) 500 Mg Tablet 500 Mg PO BID Atorvastatin Calcium 20 Mg Tablet 20 Mg PO DAILY Isosorbide Mononitrate Er (Isosorbide Mononitrate) 30 Mg Tab.er.24h 30 Mg PO DAILY Levothyroxine Sodium 88 Mcg Tablet 88 Mcg PO DAILY06 Nexium Capsule (Esomeprazole Magnesium) 40 Mg Capsule.dr 1 Cap PO DAILY Metoprolol Succinate ( Xl ) (Metoprolol Succinate) 25 Mg Tab.er.24h 2 Tab PO DAILY Aspir 81 (Aspirin) 81 Mg Tablet.dr 1 Tab PO DAILY Fenofibrate (Fenofibrate Nanocrystallized) 145 Mg Tablet 160 Mg PO DAILY Metformin Hcl 1,000 Mg Tablet 1,000 Mg PO BID Vitals/I & O Vital Sign - Last 24 Hours 08/15/17 08/15/17 08/15/17 08/15/17 11:00 11:35 12:13 15:04 Temp 98.0 98.6 98.0 98.6 Pulse 74 74 83 Resp 20 20 B/P (MAP) 131/77 (95) 131/77 137/83 (101) Pulse Ox 95 98 97 O2 Delivery Nasal Cannula Nasal Cannula Nasal Cannula O2 Flow Rate 3.0 2.0 3.0 08/15/17 08/15/17 08/15/17 08/15/17 15:09 17:23 19:35 19:53 Temp 98.8 98.8 Pulse 84 Resp 20 B/P (MAP) 147/73 (97) Pulse Ox 98 98 97 98 O2 Delivery Nasal Cannula Nasal Cannula Nasal Cannula Nasal Cannula O2 Flow Rate 2.0 2.0 2.0 08/15/17 08/15/17 08/16/17 08/16/17 20:00 22:22 02:58 03:51 Temp 98.1 98.2 98.1 98.2 Pulse 78 76 Resp 18 16 16 B/P (MAP) 139/70 (93) 142/63 (89) Pulse Ox 98 97 O2 Delivery Nasal Cannula Nasal Cannula Nasal Cannula Nasal Cannula O2 Flow Rate 3.0 3.0 3.5 3.0 08/16/17 08/16/17 08/16/17 08/16/17 04:51 07:00 08:10 08:16 Temp 97.9 97.9 Pulse 76 Resp 19 20 B/P (MAP) 149/75 (99) Pulse Ox 96 98 O2 Delivery Nasal Cannula Nasal Cannula Nasal Cannula O2 Flow Rate 3.5 2.0 2.0 08/16/17 08/16/17 08/16/17 08/16/17 08:33 08:34 08:35 08:36 Pulse 76 76 76 76 B/P (MAP) 149/75 149/75 149/75 149/75 08/16/17 08/16/17 08:36 09:36 Pulse Ox 98 O2 Delivery Nasal Cannula Nasal Cannula O2 Flow Rate 2.0 2.0 YUN MAGALLON MD Aug 16, 2017 10:21
[2017-08-16 11:00] VITALS: BP 145/59
[2017-08-17] MEDS ORDERED: LEVOTHYROXINE 50 MCG TABLET PO SCH (07:00)
[2017-08-20 09:23] LABS: IMMUNOGLOBULIN A 362 mg/dL (87-352); IMMUNOGLOBULIN G 664 mg/dL (700-1600); IMMUNOGLOBULIN M 34 mg/dL (26-217)
== END 2017-08-16 14:06 | DRG 74 ==
LOC: ER 20:09 → 5 SOUTH 22:28 → 6 SOUTH 08-15 14:37
PROVIDERS: ADMIT Internal Medicine; ATTEND Internal Medicine
DX: E11.40 Type 2 diabetes mellitus with diabetic neuropathy, unspecified (principal); N17.9 Acute kidney failure, unspecified; E11.21 Type 2 diabetes mellitus with diabetic nephropathy; I27.2 Other secondary pulmonary hypertension; N39.0 Urinary tract infection, site not specified; S09.90XA Unspecified injury of head, initial encounter; W19.XXXA Unspecified fall, initial encounter; E87.5 Hyperkalemia; E03.9 Hypothyroidism, unspecified; E11.22 Type 2 diabetes mellitus with diabetic chronic kidney disease; E78.00 Pure hypercholesterolemia, unspecified; E78.5 Hyperlipidemia, unspecified; E86.0 Dehydration; I12.9 Hypertensive chronic kidney disease with stage 1 through stage 4 chronic kidney disease, or unspecified chronic kidney disease; I25.10 Atherosclerotic heart disease of native coronary artery without angina pectoris; J44.9 Chronic obstructive pulmonary disease, unspecified; K21.9 Gastro-esophageal reflux disease without esophagitis; M81.0 Age-related osteoporosis without current pathological fracture; N18.9 Chronic kidney disease, unspecified; Z82.49 Family history of ischemic heart disease and other diseases of the circulatory system; Z83.3 Family history of diabetes mellitus; Z86.010 Personal history of colon polyps; Z86.73 Personal history of transient ischemic attack (TIA), and cerebral infarction without residual deficits; Z95.5 Presence of coronary angioplasty implant and graft; E05.90 Thyrotoxicosis, unspecified without thyrotoxic crisis or storm; F32.9 Major depressive disorder, single episode, unspecified; F41.9 Anxiety disorder, unspecified; I25.2 Old myocardial infarction; Z88.1 Allergy status to other antibiotic agents; Z90.49 Acquired absence of other specified parts of digestive tract; Z98.51 Tubal ligation status; Z90.710 Acquired absence of both cervix and uterus; Y93.89 Activity, other specified; Y92.89 Other specified places as the place of occurrence of the external cause; Y99.8 Other external cause status
CPT/HCPCS: 36415; 51701; 70450; 70551; 71010; 71100; 72125; 72170; 73030; 80047; 80048; 80053; 80076; 81001; 82607; 82746; 82962; 83690; 84443; 84484; 85025; 85027; 85651; 86334; 87086; 93005; 94250; 94640; 94760; 96360; J0690; J0696; J1815; J3010; J3420; J7030; J7040; J7620; 97116; 99285-25

== ENCOUNTER 2017-09-24 17:59 | Observation (INO) | payer MEDICARE, MEDICAID ==
[~2017-09-24] VITALS: Ht 162.6 cm; Wt 86.3 kg
[~2017-09-24 17:59] MED LIST changes: +AZIT1PAC PO
[2017-09-24 18:42] LABS: BASO % 0 % (0-3); EOS % 0 % (0-3); HEMATOCRIT 34.5 % (36.0-47.0); HEMOGLOBIN 11.3 g/dL (12.0-15.5); LYMPH # 2.2 x10^3/uL (1.0-4.8); LYMPH % 15 % (24-48); MEAN CORPUSCULAR HEMOGLOBIN 30 pg (25-35); MEAN CORPUSCULAR HGB CONC 33 g/dL (31-37); MEAN CORPUSCULAR VOLUME 91 fL (79-100); MONO % 7 % (0-9); NEUT % 78 % (31-73); PLATELET COUNT 336 x10^3/uL (140-400); RED CELL DISTRIBUTION WIDTH 16.3 % (11.5-14.5); WHITE BLOOD COUNT 14.5 x10^3/uL (4.0-11.0)
[2017-09-24 18:53] LABS: PROTHROMBIN TIME PATIENT 12.9 SEC (11.7-14.0)
--- NOTE | 2017-09-24 18:54 | RAD ---
RS Compliance Statement: One or more of the following individualized dose reduction techniques were utilized for this examination: 1. Automated exposure control 2. Adjustment of the mA and/or kV according to patient size 3. Use of iterative reconstruction technique CT HEAD WITHOUT CONTRAST History: head injury/fall, Comparison: CT head without contrast, August 13, 2017. Procedure: Axial images are obtained of the head from the skull base through the vertex without IV contrast. Findings: The ventricles and sulci are normal for the patient's age. No mass-effect, midline shift, hemorrhage, extra-axial fluid collection, or obvious acute infarction is identified. Basilar cisterns are patent. Bone windows demonstrate no acute calvarial abnormality. There is moderate left preorbital and frontal scalp hematoma. The globes and post septal orbits are intact. The visualized paranasal sinuses are clear. Mastoid air cells are well aerated. IMPRESSION: 1. No acute intracranial abnormality. 2. Moderate left preorbital and frontal scalp hematoma. Electronically signed by: Emil Jimenez MD (09/24/2017 6:50 PM) [facility]
[2017-09-24] MEDS ORDERED: LIDOCAINE 1% PF 2 ML VIAL. ONE (19:36)
--- NOTE | 2017-09-24 19:57 | PHYS DOC ---
Past Medical History Past Medical History: Anxiety, Bronchitis, COPD, Depression, Diabetes-Type II, High Cholesterol, Hypertension, Hyperthyroid, ID Additional Past Medical Histor: EMPHYSEMA Past Surgical History: Angioplasty, Other Additional Past Surgical Histo: left knee replacementx2, spinal fusion, right knee arthroplasty, CTR, Alcohol Use: Rarely Drug Use: None Adult General Chief Complaint Chief Complaint: MECHANICAL FALL HPI HPI Patient is a 62 year old female who presents with a clock falling on her. Patient had a clock fall on her. It hit her left eye. She then fell to ground. She denies neck injury. She denies pain anywhere other than her head. Did sustain a laceration to her forehead. No other injuries. Currently her only complaint is swelling her left eye. Pain is constant. Localized to the left forehead. No pain elsewhere. No exacerbating symptoms other than a clock falling on her head. Review of Systems Review of Systems Constitutional: Denies fever or chills [] Eyes: Denies change in visual acuity, redness, or eye pain [] HENT: Denies nasal congestion or sore throat [] Respiratory: Denies cough or shortness of breath [] Cardiovascular: No additional information not addressed in HPI [] GI: Denies abdominal pain, nausea, vomiting, bloody stools or diarrhea [] : Denies dysuria or hematuria [] Musculoskeletal: Denies back pain or joint pain [] Integument: Denies rash or skin lesions [] Neurologic: Denies headache, focal weakness or sensory changes [] Endocrine: Denies polyuria or polydipsia [] Current Medications Current Medications Current Medications Medications (Trade) Dose Ordered Sig/[facility] Start Time Stop Time Status Last Admin Dose Admin Lidocaine HCl (Xylocaine-Mpf 1% Vial) 2 ml STK-MED ONCE 09/24/17 19:36 09/24/17 19:37 DC Allergies Allergies Allergies Coded Allergies Type Severity Reaction Last Updated Verified levofloxacin Allergy Intermediate Hives 03/05/17 Yes Physical Exam Physical Exam Constitutional: Well developed, well nourished, no acute distress, non-toxic appearance. [] HENT: Swelling over the left eye, laceration one cm to left forehead, bilateral external ears normal, oropharynx moist, no oral exudates, nose normal. [] Eyes: PERRLA, EOMI, conjunctiva normal, no discharge. [] Neck: Normal range of motion, no tenderness, supple, no stridor. Able to clear c-spine clinically [] Cardiovascular:Heart rate regular rhythm, no murmur [] Lungs & Thorax: Bilateral breath sounds clear to auscultation [] Abdomen: Bowel sounds normal, soft, no tenderness, no masses, no pulsatile masses. [] Skin: Warm, dry, no erythema, no rash. [] Back: No tenderness, no CVA tenderness. [] Extremities: No tenderness, no cyanosis, no clubbing, ROM intact, no edema. [] Neurologic: Alert and oriented X 3, normal motor function, normal sensory function, no focal deficits noted. [] Psychologic: Affect normal, judgement normal, mood normal. [] Current Patient Data Vital Signs Vital Signs Date Time Temp Pulse Resp B/P (MAP) Pulse Ox O2 Delivery O2 Flow Rate FiO2 09/24/17 18:00 97.4 96 22 125/71 (89) 99 Room Air 97.4 Lab Values Laboratory Tests Test 09/24/17 18:21 White Blood Count 14.5 x10^3/uL (4.0-11.0) H Red Blood Count 3.80 x10^6/uL (3.50-5.40) Hemoglobin 11.3 g/dL (12.0-15.5) L Hematocrit 34.5 % (36.0-47.0) L Mean Corpuscular Volume 91 fL (79-100) Mean Corpuscular Hemoglobin 30 pg (25-35) Mean Corpuscular Hemoglobin Concent 33 g/dL (31-37) Red Cell Distribution Width 16.3 % (11.5-14.5) H Platelet Count 336 x10^3/uL (140-400) Neutrophils (%) (Auto) 78 % (31-73) H Lymphocytes (%) (Auto) 15 % (24-48) L Monocytes (%) (Auto) 7 % (0-9) Eosinophils (%) (Auto) 0 % (0-3) Basophils (%) (Auto) 0 % (0-3) Neutrophils # (Auto) 11.3 x10^3uL (1.8-7.7) H Lymphocytes # (Auto) 2.2 x10^3/uL (1.0-4.8) Monocytes # (Auto) 0.9 x10^3/uL (0.0-1.1) Eosinophils # (Auto) 0.0 x10^3/uL (0.0-0.7) Basophils # (Auto) 0.0 x10^3/uL (0.0-0.2) Prothrombin Time 12.9 SEC (11.7-14.0) Prothrombin Time INR 1.0 (0.8-1.1) Laboratory Tests 09/24/17 18:21 EKG EKG [] Radiology/Procedures Radiology/Procedures CT HEAD WITHOUT CONTRAST History: head injury/fall, Comparison: CT head without contrast, August 13, 2017. Procedure: Axial images are obtained of the head from the skull base through the vertex without IV contrast. Findings: The ventricles and sulci are normal for the patient's age. No mass-effect, midline shift, hemorrhage, extra-axial fluid collection, or obvious acute infarction is identified. Basilar cisterns are patent. Bone windows demonstrate no acute calvarial abnormality. There is moderate left preorbital and frontal scalp hematoma. The globes and post septal orbits are intact. The visualized paranasal sinuses are clear. Mastoid air cells are well aerated. IMPRESSION: 1. No acute intracranial abnormality. 2. Moderate left preorbital and frontal scalp hematoma. Electronically signed by: Emil Jimenez MD (09/24/2017 6:50 PM) [facility] [] Impressions: periorbital hamatoma, head injury Course & Med Decision Making Course & Med Decision Making Pertinent Labs and Imaging studies reviewed. (See chart for details) Laceration repair. Area cleaned with Betadine. 1 mL 1% lidocaine used. A running suture with 4 Prolenex 5 placed. Once the laceration simple. Good cosmesis obtained. Patient remained stable in the emergency department. Given that she is on a Eloquis will arrange admission telemetry overnight for neuro checks. Needs sutures out in [address] Tejeda who accepts for observation status for neuro checks overnight. Dragon Disclaimer Dragon Disclaimer This electronic medical record was generated, in whole or in part, using a voice recognition dictation system. Departure Departure Impression: Primary Impression: Head injury Disposition: ADMITTED INPATIENT Admitting Physician: Aura Tejeda Condition: STABLE Referrals: AURA TEJEDA MD (PCP) GORDON MAYORGA MD Sep 24, 2017 19:57
[2017-09-24 22:05] VITALS: BP 180/88
[2017-09-24 22:45] VITALS: BP 180/88
--- NOTE | 2017-09-24 23:57 | PHYS DOC ---
Past Medical History Past Medical History: Anxiety, Bronchitis, COPD, Depression, Diabetes-Type II, High Cholesterol, Hypertension, Hyperthyroid, NV Additional Past Medical Histor: EMPHYSEMA Past Surgical History: Angioplasty, Other Additional Past Surgical Histo: left knee replacementx2, spinal fusion, right knee arthroplasty, CTR, Alcohol Use: Rarely Drug Use: None Adult General Chief Complaint Chief Complaint: MECHANICAL FALL HPI HPI Patient is a 62 year old female who had a large clock fall on her CT rolled female had a large clock fall and hit her on the head. She did not lose consciousness. When the clock fell and hit her and she fell also. Her complaint is head pain and bleeding from her forehead and swelling to her upper eye. Consciousness no chest pain no hip pain or arm pain. She has no headache. Those are constant. It worsened by being hit by a large clock. No alleviating factors. Review of Systems Review of Systems Constitutional: Denies fever or chills Eyes: Denies change in visual acuity, redness, or eye pain HENT: Denies nasal congestion or sore throat Respiratory: Denies cough or shortness of breath Cardiovascular: No additional information not addressed in HPI GI: Denies abdominal pain, nausea, vomiting, bloody stools or diarrhea : Denies dysuria or hematuria Musculoskeletal: Denies back pain or joint pain Integument: Denies rash or skin lesions Neurologic: Denies headache, focal weakness or sensory changes Endocrine: Denies polyuria or polydipsia Current Medications Current Medications Current Medications Medications (Trade) Dose Ordered Sig/Juan Start Time Stop Time Status Last Admin Dose Admin Lidocaine HCl (Xylocaine-Mpf 1% Vial) 2 ml STK-MED ONCE 09/24/17 19:36 09/24/17 19:37 DC Allergies Allergies Allergies Coded Allergies Type Severity Reaction Last Updated Verified levofloxacin Allergy Intermediate Hives 03/05/17 Yes Physical Exam Physical Exam Constitutional: Well developed, well nourished, no acute distress, non-toxic appearance. HENT: Normocephalic, there is a large hematoma over the left eye. There is a 2 cm laceration above her left eye. Eyes: PERRLA, EOMI, conjunctiva normal, no discharge. Neck: Normal range of motion, no tenderness, supple, no stridor. No midline tenderness; c-spine cleared by nexus criteria Cardiovascular:Heart rate regular rhythm, no murmur Lungs & Thorax: Bilateral breath sounds clear to auscultation Abdomen: Bowel sounds normal, soft, no tenderness, no masses, no pulsatile masses. Skin: Warm, dry, no erythema, no rash. Back: No tenderness, no CVA tenderness. Extremities: No tenderness, no cyanosis, no clubbing, ROM intact, no edema. Neurologic: Alert and oriented X 3, normal motor function, normal sensory function, no focal deficits noted. Psychologic: Affect normal, judgement normal, mood normal. Current Patient Data Vital Signs Vital Signs Date Time Temp Pulse Resp B/P (MAP) Pulse Ox O2 Delivery O2 Flow Rate FiO2 09/24/17 19:30 76 18 94 09/24/17 18:00 97.4 125/71 (89) Room Air 97.4 Lab Values Laboratory Tests Test 09/24/17 18:21 White Blood Count 14.5 x10^3/uL (4.0-11.0) H Red Blood Count 3.80 x10^6/uL (3.50-5.40) Hemoglobin 11.3 g/dL (12.0-15.5) L Hematocrit 34.5 % (36.0-47.0) L Mean Corpuscular Volume 91 fL (79-100) Mean Corpuscular Hemoglobin 30 pg (25-35) Mean Corpuscular Hemoglobin Concent 33 g/dL (31-37) Red Cell Distribution Width 16.3 % (11.5-14.5) H Platelet Count 336 x10^3/uL (140-400) Neutrophils (%) (Auto) 78 % (31-73) H Lymphocytes (%) (Auto) 15 % (24-48) L Monocytes (%) (Auto) 7 % (0-9) Eosinophils (%) (Auto) 0 % (0-3) Basophils (%) (Auto) 0 % (0-3) Neutrophils # (Auto) 11.3 x10^3uL (1.8-7.7) H Lymphocytes # (Auto) 2.2 x10^3/uL (1.0-4.8) Monocytes # (Auto) 0.9 x10^3/uL (0.0-1.1) Eosinophils # (Auto) 0.0 x10^3/uL (0.0-0.7) Basophils # (Auto) 0.0 x10^3/uL (0.0-0.2) Prothrombin Time 12.9 SEC (11.7-14.0) Prothrombin Time INR 1.0 (0.8-1.1) Laboratory Tests 09/24/17 18:21 EKG EKG [] Radiology/Procedures Radiology/Procedures CT HEAD WITHOUT CONTRAST History: head injury/fall, Comparison: CT head without contrast, August 13, 2017. Procedure: Axial images are obtained of the head from the skull base through the vertex without IV contrast. Findings: The ventricles and sulci are normal for the patient's age. No mass-effect, midline shift, hemorrhage, extra-axial fluid collection, or obvious acute infarction is identified. Basilar cisterns are patent. Bone windows demonstrate no acute calvarial abnormality. There is moderate left preorbital and frontal scalp hematoma. The globes and post septal orbits are intact. The visualized paranasal sinuses are clear. Mastoid air cells are well aerated. IMPRESSION: 1. No acute intracranial abnormality. 2. Moderate left preorbital and frontal scalp hematoma. Electronically signed by: Emil Jimenez MD (09/24/2017 6:50 PM) [facility] Impressions: periorbital hematoma ; facial laceration Course & Med Decision Making Course & Med Decision Making Pertinent Labs and Imaging studies reviewed. (See chart for details) Patient remains stable. There is some increased bruising to her face. Repair of forehead laceration. Dragon Disclaimer Dragon Disclaimer This electronic medical record was generated, in whole or in part, using a voice recognition dictation system. Departure Departure Referrals: AURA TEJEDA MD (PCP) GORDON MAYORGA MD Sep 24, 2017 23:57
[2017-09-25 03:00] VITALS: BP 175/88
[2017-09-25 07:25] VITALS: BP 186/83
--- NOTE | 2017-09-25 09:50 | PDOC3 ---
Discharge Summary* Date of Admission: Sep 24, 2017 Date of Discharge: Sep 25, 2017 Admitting Diagnosis Problems Medical Problems: (1) Head injury Status: Acute Problems: Final Diagnosis 1- head trauma 2-hematoma to left orbit 3-COPD with recent exacerbation she is a still taken antibiotic and I taper prednisone 4-coronary artery disease 5-diabetes mellitus type 2 6-HTN 7-peripheral neuropathy Problems Medical Problems: (1) Head injury Status: Acute Procedures CT head Brief Hospital Course Ms. Cash is a 62 old female who presented with hematoma to her left orbit and laceration after having a clock fall on her head, she does take affient a blood thinner along with the aspirin for her cardiac condition even though her hematoma was a scalp hematoma in the periorbital area it was felt prudent to admit her and do neurochecks on her overnight on the next morning she has not had any headache her mental status is very good she has not had any nausea she does have a large hematoma but she is totally neurologically intact it was felt that she can hold her aspirin and affient for 2 days and then resume , she was advised to apply ice to the hematoma Disposition/Orders: D/C to Home w/ HH CONDITION AT DISCHARGE: Stable Diet: Cardiac, Consistent Carbohydrate Scheduled Amlodipine Besylate (Amlodipine Besylate), 5 MG PO DAILY Atorvastatin Calcium (Atorvastatin Calcium), 20 MG PO DAILY, (Reported) Azithromycin (Zithromax Packet), 1 PACKET PO ONCE Citalopram Hydrobromide (Citalopram Hbr), 40 MG PO DAILY, (Reported) Fenofibrate Nanocrystallized (Fenofibrate), 160 MG PO DAILY, (Reported) Insulin Detemir (Levemir Flextouch), 7 UNITS SQ QHS Ipratropium/Albuterol Sulfate (Duoneb 0.5-3(2.5) Mg/3 Ml), 3 ML NEB RTQID Ipratropium/Albuterol Sulfate (Duoneb 0.5-3(2.5) Mg/3 Ml), 3 ML NEB QID Isosorbide Mononitrate (Isosorbide Mononitrate Er), 30 MG PO DAILY, (Reported) Levothyroxine Sodium (Levothyroxine Sodium), 88 MCG PO DAILY06, (Reported) Metformin Hcl (Metformin Hcl), 1,000 MG PO BIDWMEALS Metoprolol Succinate (Metoprolol Succinate ( Xl )), 2 TAB PO DAILY, (Reported) Prednisone (Prednisone), 10 MG PO UD Spironolactone (Spironolactone), 1 TAB PO DAILY Sucralfate (Carafate), 1 GM PO QIDACHS Valsartan (Diovan), 160 MG PO DAILY, (Reported) Scheduled PRN Hydrocodone Bit/Acetaminophen (Hydrocodone-Apap 7.5-325 ), 1 TAB PO Q4HRS PRN for MODERATE PAIN Discontinued Medications Aspirin (Aspir 81), 1 TAB PO DAILY, (Reported) Prasugrel Hcl (Effient), 10 MG PO DAILYWBKFT FOLLOW UP APPOINTMENT: Hold aspirin and Effient for 2 days and apply ice to the left orbit, see Dr. granados in the office on Saturday Time Spent Total time spent with patient [] minutes for coordination of care, counseling, and education. AURA TEJEDA MD Sep 25, 2017 09:50
--- NOTE | 2017-09-25 09:50 | PDOC1 ---
History and Physical Date of Admission Date of Admission 09/24/17 Identification/Chief Complaint Chief Complaint clock fell on her head Problems: Source Source: Chart review, Patient History of Present Illness History of Present Illness Patient had a clock fall on her. It hit her left eye. She then fell to ground. She denies neck injury. She denies pain anywhere other than her head. Did sustain a laceration to her forehead. No other injuries. Currently her only complaint is swelling her left eye. Pain is constant. Localized to the left forehead. No pain elsewhere. No exacerbating symptoms other than a clock falling on her head. She has had recurrent falls and had a workup for TIAs and CVA, she does have neuropathy, she was advised to move slow she has been under the care of home health and getting physical therapy at home for her safety Past Medical History Cardiovascular: CAD, HTN, Hyperlipidemia Pulmonary: COPD CENTRAL NERVOUS SYSTEM: TIA GI: GERD, Other Heme/Onc: No pertinent hx Hepatobiliary: No pertinent hx Psych: Anxiety, Depression Rheumatologic: No pertinent hx Infectious disease: Herpes simplex2 Renal/: No pertinent hx, UTI, Urinary Incontinence Endocrine: Diabetes, Osteoporosis Past Surgical History Past Surgical History: Cholecystectomy, Total knee replacement, Tubal Ligation , Other Family History Family History: Diabetes, Hypertension, Other Social History Smoke: Quit ALCOHOL: none Drugs: None Current Problem List Problem List Problems Medical Problems: (1) Head injury Status: Acute Current Medications Current Medications Current Medications Medications (Trade) Dose Ordered Sig/Juan Start Time Stop Time Status Last Admin Dose Admin Lidocaine HCl (Xylocaine-Mpf 1% Vial) 2 ml STK-MED ONCE 09/24/17 19:36 09/24/17 19:37 DC Allergies Allergies Allergies Coded Allergies Type Severity Reaction Last Updated Verified levofloxacin Allergy Intermediate Hives 03/05/17 Yes ROS Review of System CONSTITUTIONAL: No fever or chills EYES: Swelling and hematoma in the left eye SKIN: No rash or itching CARDIOVASCULAR: No chest pain, syncope, palpitations, or edema RESPIRATORY: No SOB or cough GASTROINTESTINAL: No nausea, vomiting or abdominal pain NEUROLOGICAL: No headaches or weakness ENDOCRINE: No cold or heat intolerance GENITOURINARY: No urgency or frequency of urination MUSCULOSKELETAL: No back pain or joint pain LYMPHATICS: No enlarged lymph nodes PSYCHIATRIC: No anxiety or depression Physical Exam Physical Exam GEN.: No apparent distress. Alert and oriented. HEENT: Head is normocephalic, she has a laceration above the left eye was about taste sutures in place, her left eye is ecchymotic and swollen due to hematoma NECK: Supple. LUNGS: Clear to auscultation. HEART: RRR, S1, S2 present. Peripheral pulses intact ABDOMEN: Soft, nontender. Positive bowel sounds. EXTREMITIES: Without any cyanosis. NEUROLOGIC: Normal speech, normal tone PSYCHIATRIC: Normal affect, normal mood. SKIN: No ulcerations Vitals Vitals Vital Signs Date Time Temp Pulse Resp B/P (MAP) Pulse Ox O2 Delivery O2 Flow Rate FiO2 09/25/17 07:25 98.0 68 20 186/83 (117) 98 Nasal Cannula 2.0 98.0 Labs Labs Laboratory Tests Test 09/24/17 18:21 09/25/17 07:23 White Blood Count 14.5 x10^3/uL (4.0-11.0) Red Blood Count 3.80 x10^6/uL (3.50-5.40) Hemoglobin 11.3 g/dL (12.0-15.5) Hematocrit 34.5 % (36.0-47.0) Mean Corpuscular Volume 91 fL (79-100) Mean Corpuscular Hemoglobin 30 pg (25-35) Mean Corpuscular Hemoglobin Concent 33 g/dL (31-37) Red Cell Distribution Width 16.3 % (11.5-14.5) Platelet Count 336 x10^3/uL (140-400) Neutrophils (%) (Auto) 78 % (31-73) Lymphocytes (%) (Auto) 15 % (24-48) Monocytes (%) (Auto) 7 % (0-9) Eosinophils (%) (Auto) 0 % (0-3) Basophils (%) (Auto) 0 % (0-3) Neutrophils # (Auto) 11.3 x10^3uL (1.8-7.7) Lymphocytes # (Auto) 2.2 x10^3/uL (1.0-4.8) Monocytes # (Auto) 0.9 x10^3/uL (0.0-1.1) Eosinophils # (Auto) 0.0 x10^3/uL (0.0-0.7) Basophils # (Auto) 0.0 x10^3/uL (0.0-0.2) Prothrombin Time 12.9 SEC (11.7-14.0) Prothromb Time International Ratio 1.0 (0.8-1.1) Glucose (Fingerstick) 70 mg/dL (70-99) Laboratory Tests Test 09/24/17 18:21 09/25/17 07:23 White Blood Count 14.5 x10^3/uL (4.0-11.0) Red Blood Count 3.80 x10^6/uL (3.50-5.40) Hemoglobin 11.3 g/dL (12.0-15.5) Hematocrit 34.5 % (36.0-47.0) Mean Corpuscular Volume 91 fL (79-100) Mean Corpuscular Hemoglobin 30 pg (25-35) Mean Corpuscular Hemoglobin Concent 33 g/dL (31-37) Red Cell Distribution Width 16.3 % (11.5-14.5) Platelet Count 336 x10^3/uL (140-400) Neutrophils (%) (Auto) 78 % (31-73) Lymphocytes (%) (Auto) 15 % (24-48) Monocytes (%) (Auto) 7 % (0-9) Eosinophils (%) (Auto) 0 % (0-3) Basophils (%) (Auto) 0 % (0-3) Neutrophils # (Auto) 11.3 x10^3uL (1.8-7.7) Lymphocytes # (Auto) 2.2 x10^3/uL (1.0-4.8) Monocytes # (Auto) 0.9 x10^3/uL (0.0-1.1) Eosinophils # (Auto) 0.0 x10^3/uL (0.0-0.7) Basophils # (Auto) 0.0 x10^3/uL (0.0-0.2) Prothrombin Time 12.9 SEC (11.7-14.0) Prothromb Time International Ratio 1.0 (0.8-1.1) Glucose (Fingerstick) 70 mg/dL (70-99) VTE Prophylaxis Ordered VTE Prophylaxis Devices: Yes VTE Pharmacological Prophylaxi: Contraindicated (hematoma) Assessment/Plan Assessment/Plan 1- had trauma 2-hematoma to left orbit 3-COPD with recent exacerbation she is a still taken antibiotic and I taper prednisone 4-coronary artery disease 5-diabetes mellitus type 2 6-HTN 7-peripheral neuropathy AURA TEJEDA MD Sep 25, 2017 09:50
[2017-09-25 10:33] VITALS: BP 148/76
== END 2017-09-25 11:25 | disposition home health service (06) ==
LOC: ER 17:59 → 6 SOUTH 20:01
PROVIDERS: ADMIT Internal Medicine; ATTEND Internal Medicine
DX: S01.81XA Laceration without foreign body of other part of head, initial encounter (principal); S05.12XA Contusion of eyeball and orbital tissues, left eye, initial encounter; I25.10 Atherosclerotic heart disease of native coronary artery without angina pectoris; I10 Essential (primary) hypertension; E78.5 Hyperlipidemia, unspecified; J44.9 Chronic obstructive pulmonary disease, unspecified; I25.2 Old myocardial infarction; E05.90 Thyrotoxicosis, unspecified without thyrotoxic crisis or storm; E11.40 Type 2 diabetes mellitus with diabetic neuropathy, unspecified; K21.9 Gastro-esophageal reflux disease without esophagitis; F41.9 Anxiety disorder, unspecified; F32.9 Major depressive disorder, single episode, unspecified; E11.9 Type 2 diabetes mellitus without complications; M81.0 Age-related osteoporosis without current pathological fracture; W18.30XA Fall on same level, unspecified, initial encounter; Y93.89 Activity, other specified; Y92.89 Other specified places as the place of occurrence of the external cause; Y99.8 Other external cause status; Z98.890 Other specified postprocedural states; Z86.73 Personal history of transient ischemic attack (TIA), and cerebral infarction without residual deficits
CPT/HCPCS: 36415; 70450; 82962; 85025; 85610; 99285; G0378; G0379

== ENCOUNTER 2017-12-15 14:38 | Inpatient (IN) | payer MEDICARE, MEDICAID ==
[2017-12-15] MEDS: IPRATRPIUM/ALBUTEROL 0.5/2.5MG 3 ML NEBU. NEB ×2 (15:01→19:44)
[2017-12-15 15:06] LABS: ADD MAN DIFF? NO
[2017-12-15 15:07] LABS: BASO % 1 % (0-3); EOS # 0.1 x10^3/uL (0.0-0.7); EOS % 1 % (0-3); HEMATOCRIT 34.5 % (36.0-47.0); LYMPH # 0.9 x10^3/uL (1.0-4.8); LYMPH % 10 % (24-48); MEAN CORPUSCULAR HEMOGLOBIN 28 pg (25-35); MEAN CORPUSCULAR HGB CONC 32 g/dL (31-37); MEAN CORPUSCULAR VOLUME 88 fL (79-100); MONO # 0.5 x10^3/uL (0.0-1.1); MONO % 5 % (0-9); NEUT # 7.7 x10^3uL (1.8-7.7); NEUT % 84 % (31-73); PLATELET COUNT 171 x10^3/uL (140-400); RED BLOOD COUNT 3.93 x10^6/uL (3.50-5.40); RED CELL DISTRIBUTION WIDTH 13.9 % (11.5-14.5); WHITE BLOOD COUNT 9.2 x10^3/uL (4.0-11.0)
[2017-12-15 15:22] LABS: ANION GAP 10 (6-14); BLOOD UREA NITROGEN 12 mg/dL (7-20); CALCIUM 8.7 mg/dL (8.5-10.1); CARBON DIOXIDE 27 mmol/L (21-32); CHLORIDE 103 mmol/L (98-107); CREATININE 0.9 mg/dL (0.6-1.0); GFR 63.2; GLUCOSE 179 mg/dL (70-99); POTASSIUM 4.3 mmol/L (3.5-5.1); SODIUM 140 mmol/L (136-145)
[2017-12-15 15:24] LABS: BILIRUBIN,URINE NEGATIVE (NEG); CLARITY,URINE CLEAR; COLOR,URINE YELLOW; GLUCOSE,URINE 250 mg/dL (NEG); NITRITE,URINE NEGATIVE (NEG); PH,URINE 5.5; PROTEIN,URINE NEGATIVE (NEG-TRACE); UROBILINOGEN,URINE 0.2 mg/dL (0.2 mg/dL)
[2017-12-15 15:27] LABS: ALBUMIN 3.5 g/dL (3.4-5.0); ALK PHOS 46 U/L (46-116); ALT (SGPT) 15 U/L (14-59); AST (SGOT) 12 U/L (15-37); DIRECT BILIRUBIN 0.1 mg/dL (0.0-0.2); TOTAL BILIRUBIN 0.3 mg/dL (0.2-1.0); TOTAL PROTEIN 6.6 g/dL (6.4-8.2)
[2017-12-15 15:32] LABS: TROPONINI < 0.017 ng/mL (0.000-0.055)
[2017-12-15 15:36] LABS: NT-PRO BNP 320 pg/mL (0-124)
[2017-12-15 15:36] LABS: BACTERIA,URINE 0 /HPF (0-FEW); CKMB MASS 1.2 ng/mL (0.0-3.6); CREATINE KINASE 39 U/L (26-192); RBC,URINE 0 /HPF (0-2); SQUAMOUS EPITHELIAL CELL,UR MOD /LPF; WBC,URINE OCC /HPF (0-4)
[2017-12-15 15:46] LABS: INFLUENZA A PATIENT NEGATIVE (NEGATIVE); INFLUENZA B PATIENT NEGATIVE (NEGATIVE); OBC FLU VALID
[2017-12-15] MEDS: AZITHRMYCN 500MG IVPB FOR OMNI 250 ML IV (16:42)
[2017-12-15] MEDS: methylPREDNISolone SOD SUCC PF 125 MG/2 ML VIAL. IV (16:42)
[2017-12-15] MEDS: ASPIRIN 325 MG TABLET PO (17:02)
[2017-12-15] MEDS: ONDANSETRON PF 4 MG/2 ML VIAL. IV (17:47)
[2017-12-15] MEDS ORDERED: IPRATRPIUM/ALBUTEROL 0.5/2.5MG 3 ML NEBU. NEB (20:00)
[2017-12-15 21:18] LABS: POC GLUCOSE 271 mg/dL (70-99)
[2017-12-15] MEDS: SUCRALFATE 1 GM TABLET. PO (22:00)
[2017-12-15] MEDS: ATORVASTATIN CALCIUM 20 MG TABLET PO (22:21)
[2017-12-15] MEDS: PREGABALIN 75 MG CAPSULE PO (22:22)
[2017-12-15] MEDS: INSULIN DETEMIR 300 UNITS/3 ML INSULN.PEN. SQ (22:25)
[2017-12-15 22:51] LABS: TROPONINI < 0.017 ng/mL (0.000-0.055)
[2017-12-16 04:32] LABS: BASO % 0 % (0-3); EOS % 0 % (0-3); LYMPH # 0.5 x10^3/uL (1.0-4.8); LYMPH % 6 % (24-48); MEAN CORPUSCULAR HEMOGLOBIN 28 pg (25-35); MEAN CORPUSCULAR HGB CONC 32 g/dL (31-37); MEAN CORPUSCULAR VOLUME 88 fL (79-100); MONO # 0.1 x10^3/uL (0.0-1.1); MONO % 1 % (0-9); NEUT # 6.6 x10^3uL (1.8-7.7); NEUT % 93 % (31-73); PLATELET COUNT 162 x10^3/uL (140-400); RED BLOOD COUNT 3.89 x10^6/uL (3.50-5.40); RED CELL DISTRIBUTION WIDTH 13.6 % (11.5-14.5); WHITE BLOOD COUNT 7.1 x10^3/uL (4.0-11.0)
[2017-12-16 04:48] LABS: ADD MAN DIFF? YES
[2017-12-16 04:56] LABS: ANION GAP 9 (6-14); BLOOD UREA NITROGEN 16 mg/dL (7-20); CALCIUM 8.8 mg/dL (8.5-10.1); CARBON DIOXIDE 28 mmol/L (21-32); CHLORIDE 104 mmol/L (98-107); GLUCOSE 255 mg/dL (70-99); POTASSIUM 4.5 mmol/L (3.5-5.1); SODIUM 141 mmol/L (136-145)
[2017-12-16 05:23] LABS: TROPONINI < 0.017 ng/mL (0.000-0.055)
[2017-12-16] MEDS: LEVOTHYROXINE 100 MCG TABLET PO (06:00)
[2017-12-16 06:46] LABS: % LYMPHS 3 % (24-48); % MONOS 1 % (0-10); % SEGS 96 % (35-66); PLT ESTIMATE ADEQUATE (ADEQUATE)
[2017-12-16] MEDS: amLODIPine BESYLATE 5 MG TABLET PO (08:28)
[2017-12-16] MEDS: PREGABALIN 75 MG CAPSULE PO ×2 (08:28→21:25)
[2017-12-16] MEDS: HYDROcodone/APAP 7.5/325MG 1 TAB TABLET PO ×2 (08:28→21:25)
[2017-12-16] MEDS: PRASUGREL 10 MG TABLET. PO (08:28)
[2017-12-16] MEDS: SPIRONOLACTONE 25 MG TABLET PO (08:28)
[2017-12-16] MEDS: CITALOPRAM 20 MG TABLET. PO (08:28)
[2017-12-16] MEDS: FENOFIBRATE,MICRONIZED 134 MG CAPSULE PO (08:29)
[2017-12-16] MEDS: SUCRALFATE 1 GM TABLET. PO ×4 (08:29→21:24)
[2017-12-16] MEDS: LOSARTAN POTASSIUM 50 MG TABLET. PO (08:29)
[2017-12-16] MEDS: ISOSORBIDE MONONITRATE ER 30 MG TAB.ER.24H PO (08:29)
[2017-12-16] MEDS: IPRATRPIUM/ALBUTEROL 0.5/2.5MG 3 ML NEBU. NEB ×4 (08:47→19:44)
[2017-12-16 10:56] LABS: NEGATIVE OBC STREP NEG; POSITIVE OBC STREP POS
[2017-12-16 11:47] LABS: POC GLUCOSE 174 mg/dL (70-99)
[2017-12-16] MEDS: PANTOPRAZOLE 40 MG TABLET.DR. PO (13:54)
[2017-12-16] MEDS: ATORVASTATIN CALCIUM 20 MG TABLET PO (21:25)
[2017-12-16] MEDS: ENOXAPARIN 40 MG/0.4 ML SYRINGE. SQ (21:29)
[2017-12-16 21:41] LABS: POC GLUCOSE 207 mg/dL (70-99)
[2017-12-16] MEDS: INSULIN DETEMIR 300 UNITS/3 ML INSULN.PEN. SQ (21:51)
[2017-12-16] MEDS: BENZOCAINE/MENTHOL LOZENGE. PO (22:46)
[2017-12-17] MEDS: BENZOCAINE/MENTHOL LOZENGE. PO ×3 (03:29→23:51)
[2017-12-17] MEDS: HYDROcodone/APAP 7.5/325MG 1 TAB TABLET PO ×2 (03:30→20:27)
[2017-12-17] MEDS: LEVOTHYROXINE 100 MCG TABLET PO (06:01)
[2017-12-17 06:17] LABS: ANION GAP 6 (6-14); BLOOD UREA NITROGEN 26 mg/dL (7-20); CALCIUM 8.2 mg/dL (8.5-10.1); CARBON DIOXIDE 28 mmol/L (21-32); CHLORIDE 102 mmol/L (98-107); CREATININE 1.2 mg/dL (0.6-1.0); GFR 45.4; GLUCOSE 122 mg/dL (70-99); SODIUM 136 mmol/L (136-145)
[2017-12-17] MEDS: IPRATRPIUM/ALBUTEROL 0.5/2.5MG 3 ML NEBU. NEB ×4 (07:43→20:03)
[2017-12-17 07:55] LABS: HEMOGLOBIN 10.5 g/dL (12.0-15.5); MEAN CORPUSCULAR HEMOGLOBIN 28 pg (25-35); MEAN CORPUSCULAR HGB CONC 32 g/dL (31-37); MEAN CORPUSCULAR VOLUME 89 fL (79-100); PLATELET COUNT 157 x10^3/uL (140-400); RED BLOOD COUNT 3.73 x10^6/uL (3.50-5.40); RED CELL DISTRIBUTION WIDTH 13.8 % (11.5-14.5); WHITE BLOOD COUNT 6.4 x10^3/uL (4.0-11.0)
[2017-12-17 08:22] LABS: POC GLUCOSE 105 mg/dL (70-99)
[2017-12-17] MEDS: SUCRALFATE 1 GM TABLET. PO ×4 (08:54→21:59)
[2017-12-17] MEDS: ASPIRIN ENTERIC COATED 81 MG TABLET.DR. PO (08:54)
[2017-12-17] MEDS: PANTOPRAZOLE 40 MG TABLET.DR. PO (08:54)
[2017-12-17] MEDS: FENOFIBRATE,MICRONIZED 134 MG CAPSULE PO (08:54)
[2017-12-17] MEDS: CITALOPRAM 20 MG TABLET. PO (08:55)
[2017-12-17] MEDS: ISOSORBIDE MONONITRATE ER 30 MG TAB.ER.24H PO (08:55)
[2017-12-17] MEDS: PREGABALIN 75 MG CAPSULE PO ×2 (08:55→20:19)
[2017-12-17] MEDS: PRASUGREL 10 MG TABLET. PO (08:55)
[2017-12-17] MEDS: SPIRONOLACTONE 25 MG TABLET PO (08:55)
[2017-12-17] MEDS: amLODIPine BESYLATE 5 MG TABLET PO (08:56)
[2017-12-17] MEDS: LOSARTAN POTASSIUM 50 MG TABLET. PO (08:56)
[2017-12-17 11:12] LABS: POC GLUCOSE 149 mg/dL (70-99)
[2017-12-17 11:12] LABS: POC GLUCOSE 215 mg/dL (70-99)
[2017-12-17 11:24] LABS: POC GLUCOSE 105 mg/dL (70-99)
[2017-12-17 15:19] LABS: POC GLUCOSE 134 mg/dL (70-99)
[2017-12-17] MEDS ORDERED: ONDANSETRON PF 4 MG/2 ML VIAL. IV (16:15)
[2017-12-17 17:31] LABS: POC GLUCOSE 142 mg/dL (70-99)
[2017-12-17] MEDS: ATORVASTATIN CALCIUM 20 MG TABLET PO (20:18)
[2017-12-17] MEDS: ENOXAPARIN 40 MG/0.4 ML SYRINGE. SQ (20:21)
[2017-12-17 21:20] LABS: POC GLUCOSE 174 mg/dL (70-99)
[2017-12-17] MEDS: INSULIN DETEMIR 300 UNITS/3 ML INSULN.PEN. SQ (22:02)
[2017-12-17] MEDS: ONDANSETRON ODT 4 MG TAB.RAPDIS. PO (23:50)
[2017-12-18] MEDS: HYDROcodone/APAP 7.5/325MG 1 TAB TABLET PO (06:02)
[2017-12-18] MEDS: BENZOCAINE/MENTHOL LOZENGE. PO ×2 (06:02→08:15)
[2017-12-18] MEDS: LEVOTHYROXINE 100 MCG TABLET PO (06:02)
[2017-12-18] MEDS: IPRATRPIUM/ALBUTEROL 0.5/2.5MG 3 ML NEBU. NEB ×2 (06:05→11:30)
[2017-12-18] MEDS: SPIRONOLACTONE 25 MG TABLET PO (08:16)
[2017-12-18] MEDS: PANTOPRAZOLE 40 MG TABLET.DR. PO (08:16)
[2017-12-18] MEDS: SUCRALFATE 1 GM TABLET. PO (08:17)
[2017-12-18] MEDS: PREGABALIN 75 MG CAPSULE PO (08:17)
[2017-12-18] MEDS: ASPIRIN ENTERIC COATED 81 MG TABLET.DR. PO (08:18)
[2017-12-18] MEDS: CITALOPRAM 20 MG TABLET. PO (08:18)
[2017-12-18] MEDS: PRASUGREL 10 MG TABLET. PO (08:18)
[2017-12-18] MEDS: FENOFIBRATE,MICRONIZED 134 MG CAPSULE PO (08:19)
[2017-12-18] MEDS: amLODIPine BESYLATE 5 MG TABLET PO (08:19)
[2017-12-18] MEDS: LOSARTAN POTASSIUM 50 MG TABLET. PO (08:20)
[2017-12-18] MEDS: ISOSORBIDE MONONITRATE ER 30 MG TAB.ER.24H PO (09:09)
[2017-12-18 11:56] LABS: POC GLUCOSE 132 mg/dL (70-99)
[2017-12-18 20:54] LABS: POC GLUCOSE 123 mg/dL (70-99)
== END 2017-12-18 12:25 | disposition home health service (06) | DRG 391 ==
LOC: ER 14:38 → 6 SOUTH 16:00
DX: K21.9 Gastro-esophageal reflux disease without esophagitis (principal); J96.20 Acute and chronic respiratory failure, unspecified whether with hypoxia or hypercapnia; E11.22 Type 2 diabetes mellitus with diabetic chronic kidney disease; K31.84 Gastroparesis; I27.20 Pulmonary hypertension, unspecified; I13.0 Hypertensive heart and chronic kidney disease with heart failure and stage 1 through stage 4 chronic kidney disease, or unspecified chronic kidney disease; E11.43 Type 2 diabetes mellitus with diabetic autonomic (poly)neuropathy; I50.9 Heart failure, unspecified; J44.1 Chronic obstructive pulmonary disease with (acute) exacerbation; J20.8 Acute bronchitis due to other specified organisms; E03.9 Hypothyroidism, unspecified; E78.00 Pure hypercholesterolemia, unspecified; E78.5 Hyperlipidemia, unspecified; G47.33 Obstructive sleep apnea (adult) (pediatric); I25.10 Atherosclerotic heart disease of native coronary artery without angina pectoris; E05.90 Thyrotoxicosis, unspecified without thyrotoxic crisis or storm; F32.9 Major depressive disorder, single episode, unspecified; F41.9 Anxiety disorder, unspecified; M19.90 Unspecified osteoarthritis, unspecified site; K58.9 Irritable bowel syndrome, unspecified; N18.3 Chronic kidney disease, stage 3 (moderate); Z96.659 Presence of unspecified artificial knee joint; Z82.49 Family history of ischemic heart disease and other diseases of the circulatory system; Z86.711 Personal history of pulmonary embolism; Z83.3 Family history of diabetes mellitus; Z86.718 Personal history of other venous thrombosis and embolism; Z86.73 Personal history of transient ischemic attack (TIA), and cerebral infarction without residual deficits; Z90.710 Acquired absence of both cervix and uterus; Z87.891 Personal history of nicotine dependence; I25.2 Old myocardial infarction; Z98.1 Arthrodesis status; Z98.61 Coronary angioplasty status; Z99.81 Dependence on supplemental oxygen; Z87.81 Personal history of (healed) traumatic fracture; Z87.440 Personal history of urinary (tract) infections; Z87.01 Personal history of pneumonia (recurrent); Z79.4 Long term (current) use of insulin; Z90.49 Acquired absence of other specified parts of digestive tract; Z98.51 Tubal ligation status; Z88.1 Allergy status to other antibiotic agents
CPT/HCPCS: 36415; 71046; 78582; 80048; 80076; 81001; 82553; 82962; 83880; 84484; 85007; 85025; 85027; 87040; 87070; 87804; 87804-59; 87880; 93005; 94640; 94760; 96365; 96374; 96375; 99285; 99285-25; A9540; A9558; J0456; J1650; J1815; J2405; J2930; J7620; Q0162

== ENCOUNTER 2017-12-19 13:10 | Emergency (ER) | payer MEDICARE, MEDICAID ==
[2017-12-19 13:36] LABS: ADD MAN DIFF? NO
[2017-12-19 13:43] LABS: BASO % 0 % (0-3); EOS # 0.1 x10^3/uL (0.0-0.7); EOS % 1 % (0-3); LYMPH # 0.8 x10^3/uL (1.0-4.8); LYMPH % 13 % (24-48); MEAN CORPUSCULAR HEMOGLOBIN 28 pg (25-35); MEAN CORPUSCULAR HGB CONC 32 g/dL (31-37); MEAN CORPUSCULAR VOLUME 86 fL (79-100); MONO # 0.3 x10^3/uL (0.0-1.1); MONO % 5 % (0-9); NEUT % 80 % (31-73); PLATELET COUNT 183 x10^3/uL (140-400); RED BLOOD COUNT 3.61 x10^6/uL (3.50-5.40); RED CELL DISTRIBUTION WIDTH 13.6 % (11.5-14.5); WHITE BLOOD COUNT 6.3 x10^3/uL (4.0-11.0)
[2017-12-19 13:54] LABS: ANION GAP 7 (6-14); BLOOD UREA NITROGEN 23 mg/dL (7-20); BUN/CREATININE RATIO 15 (6-20); CALCIUM 8.8 mg/dL (8.5-10.1); CARBON DIOXIDE 31 mmol/L (21-32); CHLORIDE 101 mmol/L (98-107); CREATININE 1.5 mg/dL (0.6-1.0); GFR 35.1; GLUCOSE 186 mg/dL (70-99); SODIUM 139 mmol/L (136-145)
[2017-12-19 13:58] LABS: POTASSIUM 5.9 mmol/L (3.5-5.1)
[2017-12-19 14:00] LABS: ALBUMIN 3.1 g/dL (3.4-5.0); ALBUMIN/GLOBULIN RATIO 0.8 (1.0-1.7); ALK PHOS 39 U/L (46-116); ALT (SGPT) 29 U/L (14-59); AST (SGOT) 34 U/L (15-37); TOTAL BILIRUBIN 0.1 mg/dL (0.2-1.0); TOTAL PROTEIN 6.8 g/dL (6.4-8.2)
[2017-12-19 14:09] LABS: TROPONINI < 0.017 ng/mL (0.000-0.055)
[2017-12-19] MEDS: SODIUM POLYSTYRENE SULFONATE 15 GM/60 ML ORAL.SUSP. PO (14:35)
[2017-12-19] MEDS: IV NORMAL SALINE 500ML BAG 500 ML IV (14:36)
[2017-12-19 17:08] LABS: POTASSIUM 5.5 mmol/L (3.5-5.1)
== END 2017-12-19 18:13 | disposition home or self-care (01) ==
LOC: ER 13:10
DX: J44.9 Chronic obstructive pulmonary disease, unspecified (principal); E87.5 Hyperkalemia; Z88.1 Allergy status to other antibiotic agents; E78.00 Pure hypercholesterolemia, unspecified; E11.9 Type 2 diabetes mellitus without complications; I10 Essential (primary) hypertension; E05.90 Thyrotoxicosis, unspecified without thyrotoxic crisis or storm; I25.2 Old myocardial infarction; Z87.891 Personal history of nicotine dependence; Z98.62 Peripheral vascular angioplasty status
CPT/HCPCS: 36415; 71045; 80053; 84132; 84484; 85025; 93005; 99285; J7040

== ENCOUNTER 2017-12-24 09:54 | Emergency (ER) | payer MEDICARE, MEDICAID ==
[2017-12-24 10:10] LABS: ADD MAN DIFF? NO
[2017-12-24 10:16] LABS: BASO # 0.1 x10^3/uL (0.0-0.2); BASO % 1 % (0-3); EOS % 1 % (0-3); HEMATOCRIT 38.1 % (36.0-47.0); HEMOGLOBIN 12.3 g/dL (12.0-15.5); LYMPH # 1.8 x10^3/uL (1.0-4.8); LYMPH % 21 % (24-48); MEAN CORPUSCULAR HEMOGLOBIN 27 pg (25-35); MEAN CORPUSCULAR HGB CONC 32 g/dL (31-37); MEAN CORPUSCULAR VOLUME 85 fL (79-100); MONO # 0.5 x10^3/uL (0.0-1.1); MONO % 6 % (0-9); NEUT # 6.2 x10^3uL (1.8-7.7); NEUT % 73 % (31-73); PLATELET COUNT 440 x10^3/uL (140-400); RED BLOOD COUNT 4.51 x10^6/uL (3.50-5.40); RED CELL DISTRIBUTION WIDTH 13.7 % (11.5-14.5); WHITE BLOOD COUNT 8.6 x10^3/uL (4.0-11.0)
[2017-12-24 10:27] LABS: ANION GAP 13 (6-14); BLOOD UREA NITROGEN 21 mg/dL (7-20); BUN/CREATININE RATIO 19 (6-20); CALCIUM 9.7 mg/dL (8.5-10.1); CARBON DIOXIDE 26 mmol/L (21-32); CHLORIDE 102 mmol/L (98-107); CREATININE 1.1 mg/dL (0.6-1.0); GFR 50.2; GLUCOSE 190 mg/dL (70-99); POTASSIUM 4.3 mmol/L (3.5-5.1); SODIUM 141 mmol/L (136-145)
[2017-12-24 10:32] LABS: ALBUMIN 3.6 g/dL (3.4-5.0); ALBUMIN/GLOBULIN RATIO 0.8 (1.0-1.7); ALK PHOS 57 U/L (46-116); ALT (SGPT) 19 U/L (14-59); AST (SGOT) 13 U/L (15-37); TOTAL BILIRUBIN 0.6 mg/dL (0.2-1.0); TOTAL PROTEIN 7.9 g/dL (6.4-8.2)
[2017-12-24 10:34] LABS: TROPONINI < 0.017 ng/mL (0.000-0.055)
[2017-12-24 10:35] LABS: INFLUENZA A PATIENT NEGATIVE (NEGATIVE); INFLUENZA B PATIENT NEGATIVE (NEGATIVE); OBC FLU VALID
[2017-12-24 10:35] LABS: LACTIC ACID 1.3 mmol/L (0.4-2.0)
[2017-12-24 11:03] LABS: BILIRUBIN,URINE SMALL (NEG); CLARITY,URINE TURBID; COLOR,URINE AMBER; GLUCOSE,URINE NEGATIVE (NEG); NITRITE,URINE NEGATIVE (NEG); PH,URINE 5.5; PROTEIN,URINE 30 mg/dL (NEG-TRACE)
[2017-12-24 11:30] LABS: AMORPHOUS SEDIMENT,UR PRESENT /HPF; BACTERIA,URINE 0 /HPF (0-FEW); RBC,URINE 0 /HPF (0-2); SQUAMOUS EPITHELIAL CELL,UR MOD /LPF; WBC,URINE 0 /HPF (0-4)
[2017-12-24] MEDS: ONDANSETRON PF 4 MG/2 ML VIAL. IV ×2 (11:43)
[2017-12-24] MEDS: IV NORMAL SALINE 1000ML BAG 1,000 ML IV ×2 (11:43)
[2017-12-24] MEDS: IPRATRPIUM/ALBUTEROL 0.5/2.5MG 3 ML NEBU. NEB ×2 (12:31)
== END 2017-12-24 13:10 | disposition home or self-care (01) ==
LOC: ER 09:54
DX: R19.7 Diarrhea, unspecified (principal); R11.0 Nausea; R05 Cough; E11.9 Type 2 diabetes mellitus without complications; E78.00 Pure hypercholesterolemia, unspecified; I10 Essential (primary) hypertension; E03.9 Hypothyroidism, unspecified; J43.9 Emphysema, unspecified; I25.2 Old myocardial infarction; Z98.1 Arthrodesis status; Z95.5 Presence of coronary angioplasty implant and graft; Z88.1 Allergy status to other antibiotic agents
CPT/HCPCS: 36415; 71045; 80053; 81001; 83605; 84484; 85025; 87040; 87086; 87804; 87804-59; 93005; 94640; 94760; 96361; 96374; 99285-25; J2405; J7030; J7620

== ENCOUNTER 2017-12-30 16:53 | Inpatient (IN) | payer MEDICARE, MEDICAID ==
[2017-12-30 17:00] LABS: POC GLUCOSE 374 mg/dL (70-99)
[2017-12-30] MEDS ORDERED: 0.9 % SODIUM CHLORIDE 10 ML DISP.SYRIN. IV (17:00)
[2017-12-30] MEDS: ALBUTEROL SULFATE 2.5 MG/3 ML NEBU. CONT NEB (17:41)
[2017-12-30] MEDS: IPRATRPIUM/ALBUTEROL 0.5/2.5MG 3 ML NEBU. NEB ×2 (17:41→20:12)
[2017-12-30 17:59] LABS: BASO % 0 % (0-3); EOS % 0 % (0-3); HEMATOCRIT 36.8 % (36.0-47.0); HEMOGLOBIN 11.8 g/dL (12.0-15.5); LYMPH # 0.7 x10^3/uL (1.0-4.8); LYMPH % 5 % (24-48); MEAN CORPUSCULAR HEMOGLOBIN 27 pg (25-35); MEAN CORPUSCULAR HGB CONC 32 g/dL (31-37); MEAN CORPUSCULAR VOLUME 85 fL (79-100); MONO # 0.5 x10^3/uL (0.0-1.1); MONO % 3 % (0-9); NEUT # 14.5 x10^3uL (1.8-7.7); NEUT % 92 % (31-73); PLATELET COUNT 496 x10^3/uL (140-400); RED BLOOD COUNT 4.32 x10^6/uL (3.50-5.40); RED CELL DISTRIBUTION WIDTH 14.7 % (11.5-14.5); WHITE BLOOD COUNT 15.8 x10^3/uL (4.0-11.0)
[2017-12-30 18:00] LABS: ADD MAN DIFF? YES
[2017-12-30] MEDS: IV NORMAL SALINE 1000ML BAG 1,000 ML IV ×3 (18:00→21:58)
[2017-12-30 18:19] LABS: ANION GAP 12 (6-14); BLOOD UREA NITROGEN 52 mg/dL (7-20); CALCIUM 10.1 mg/dL (8.5-10.1); CARBON DIOXIDE 24 mmol/L (21-32); CHLORIDE 100 mmol/L (98-107); CREATININE 1.4 mg/dL (0.6-1.0); GLUCOSE 368 mg/dL (70-99); INFLUENZA A PATIENT NEGATIVE (NEGATIVE); INFLUENZA B PATIENT NEGATIVE (NEGATIVE); OBC FLU VALID; SODIUM 136 mmol/L (136-145)
[2017-12-30 18:21] LABS: % LYMPHS 6 % (24-48); % MONOS 3 % (0-10); % SEGS 91 % (35-66); PLT ESTIMATE INCREASED (ADEQUATE)
[2017-12-30 18:26] LABS: LACTIC ACID 1.9 mmol/L (0.4-2.0)
[2017-12-30 18:27] LABS: TROPONINI < 0.017 ng/mL (0.000-0.055)
[2017-12-30 18:31] LABS: THYROID STIM HORMONE (TSH) 0.442 uIU/mL (0.358-3.74)
[2017-12-30 18:33] LABS: ALBUMIN 3.7 g/dL (3.4-5.0); ALK PHOS 50 U/L (46-116); ALT (SGPT) 19 U/L (14-59); AST (SGOT) 13 U/L (15-37); DIRECT BILIRUBIN 0.1 mg/dL (0.0-0.2); LIPASE 314 U/L (73-393); MAGNESIUM 1.5 mg/dL (1.8-2.4); TOTAL BILIRUBIN 0.3 mg/dL (0.2-1.0); TOTAL PROTEIN 7.7 g/dL (6.4-8.2)
[2017-12-30] MEDS: ASPIRIN CHEWABLE 81 MG TABLET. PO (18:33)
[2017-12-30] MEDS: methylPREDNISolone SOD SUCC PF 125 MG/2 ML VIAL. IV (18:34)
[2017-12-30 18:52] LABS: CKMB INDEX 3.4 % (0-4); CKMB MASS 1.1 ng/mL (0.0-3.6); CREATINE KINASE 32 U/L (26-192)
[2017-12-30 18:52] LABS: NT-PRO BNP 700 pg/mL (0-124)
[2017-12-30 18:53] LABS: BILIRUBIN,URINE NEGATIVE (NEG); CLARITY,URINE CLEAR; COLOR,URINE YELLOW; GLUCOSE,URINE >=1000 mg/dL (NEG); NITRITE,URINE NEGATIVE (NEG); PROTEIN,URINE NEGATIVE (NEG-TRACE); UROBILINOGEN,URINE 0.2 mg/dL (0.2 mg/dL)
[2017-12-30 19:06] LABS: BACTERIA,URINE 0 /HPF (0-FEW); RBC,URINE 0 /HPF (0-2); SQUAMOUS EPITHELIAL CELL,UR FEW /LPF; WBC,URINE OCC /HPF (0-4)
[2017-12-30 19:30] LABS: ACETONE NEG (NEG)
[2017-12-30 19:57] LABS: POC GLUCOSE 235 mg/dL (70-99)
[2017-12-30] MEDS ORDERED: fentaNYL PF VIAL 100 MCG/2 ML VIAL IV (20:00)
[2017-12-30] MEDS ORDERED: AZITHRMYCN 500MG IVPB FOR OMNI 250 ML IV (20:30)
[2017-12-30] MEDS: CALCIUM GLUCONATE 1,000 MG/10 ML VIAL. IVP (20:45)
[2017-12-30 22:27] LABS: POC GLUCOSE 309 mg/dL (70-99)
[2017-12-30] MEDS: AZITHROMYCIN IV (22:47)
[2017-12-30] MEDS: DEXTROSE IV (22:47)
[2017-12-30] MEDS: NACL IV (22:47)
[2017-12-30] MEDS ORDERED: DEXTROSE 50% 25 GM / 50ML DISP.SYRIN. IV (23:15)
[2017-12-30] MEDS: INSULIN ASPART 300 UNITS/3 ML INSULN.PEN SQ (23:24)
[2017-12-30] MEDS: INSULIN DETEMIR 300 UNITS/3 ML INSULN.PEN. SQ (23:25)
[2017-12-31 02:33] LABS: ANION GAP 6 (6-14); BLOOD UREA NITROGEN 43 mg/dL (7-20); CALCIUM 8.5 mg/dL (8.5-10.1); CARBON DIOXIDE 26 mmol/L (21-32); CHLORIDE 106 mmol/L (98-107); CREATININE 1.4 mg/dL (0.6-1.0); GLUCOSE 477 mg/dL (70-99); SODIUM 138 mmol/L (136-145)
[2017-12-31 02:43] LABS: POTASSIUM 7.1 mmol/L (3.5-5.1)
[2017-12-31 02:44] LABS: TROPONINI < 0.017 ng/mL (0.000-0.055)
[2017-12-31] MEDS: SODIUM POLYSTYRENE SULFONATE 15 GM/60 ML ORAL.SUSP. PO (03:14)
[2017-12-31] MEDS: INSULIN ASPART 300 UNITS/3 ML INSULN.PEN SQ ×4 (08:05→21:00)
[2017-12-31 08:25] LABS: POC GLUCOSE 246 mg/dL (70-99)
[2017-12-31 08:30] LABS: POTASSIUM 5.1 mmol/L (3.5-5.1)
[2017-12-31] MEDS: IPRATRPIUM/ALBUTEROL 0.5/2.5MG 3 ML NEBU. NEB ×4 (08:36→20:00)
[2017-12-31 08:38] LABS: TROPONINI < 0.017 ng/mL (0.000-0.055)
[2017-12-31] MEDS ORDERED: HYDROcodone/APAP 7.5/325MG 1 TAB TABLET PO (09:00)
[2017-12-31] MEDS ORDERED: ONDANSETRON ODT 4 MG TAB.RAPDIS. PO (09:15)
[2017-12-31] MEDS: LEVOTHYROXINE 100 MCG TABLET PO (09:48)
[2017-12-31] MEDS: PREGABALIN 75 MG CAPSULE PO ×2 (09:51→21:11)
[2017-12-31] MEDS: ASPIRIN ENTERIC COATED 81 MG TABLET.DR. PO (09:52)
[2017-12-31] MEDS: PRASUGREL 10 MG TABLET. PO (09:52)
[2017-12-31] MEDS: ISOSORBIDE MONONITRATE ER 30 MG TAB.ER.24H PO (09:57)
[2017-12-31] MEDS: ATORVASTATIN CALCIUM 20 MG TABLET PO ×2 (09:57→21:11)
[2017-12-31] MEDS: CITALOPRAM 20 MG TABLET. PO (09:57)
[2017-12-31] MEDS: FENOFIBRATE,MICRONIZED 134 MG CAPSULE PO (09:57)
[2017-12-31] MEDS: IV NORMAL SALINE 1000ML BAG 1,000 ML IV ×2 (10:01→15:56)
[2017-12-31] MEDS: SUCRALFATE 1 GM TABLET. PO ×3 (11:42→21:10)
[2017-12-31 11:43] LABS: POC GLUCOSE 286 mg/dL (70-99)
[2017-12-31 16:51] LABS: POC GLUCOSE 268 mg/dL (70-99)
[2017-12-31] MEDS: BUDESONIDE 0.5 MG/2 ML NEBU. NEB (20:00)
[2017-12-31] MEDS ORDERED: IPRATRPIUM/ALBUTEROL 0.5/2.5MG 3 ML NEBU. NEB (20:00)
[2017-12-31 21:10] LABS: POC GLUCOSE 249 mg/dL (70-99)
[2017-12-31] MEDS: ENOXAPARIN 40 MG/0.4 ML SYRINGE. SQ (21:11)
[2017-12-31] MEDS: INSULIN DETEMIR 300 UNITS/3 ML INSULN.PEN. SQ (21:19)
[2018-01-01] MEDS: LEVOTHYROXINE 100 MCG TABLET PO (05:37)
[2018-01-01] MEDS: SUCRALFATE 1 GM TABLET. PO ×4 (05:37→21:40)
[2018-01-01 06:10] LABS: HEMATOCRIT 32.2 % (36.0-47.0); HEMOGLOBIN 10.2 g/dL (12.0-15.5); MEAN CORPUSCULAR HEMOGLOBIN 27 pg (25-35); MEAN CORPUSCULAR HGB CONC 32 g/dL (31-37); MEAN CORPUSCULAR VOLUME 85 fL (79-100); PLATELET COUNT 268 x10^3/uL (140-400); RED BLOOD COUNT 3.78 x10^6/uL (3.50-5.40); WHITE BLOOD COUNT 7.9 x10^3/uL (4.0-11.0)
[2018-01-01 06:31] LABS: ALBUMIN 2.8 g/dL (3.4-5.0); ALBUMIN/GLOBULIN RATIO 0.9 (1.0-1.7); ALK PHOS 39 U/L (46-116); ALT (SGPT) 14 U/L (14-59); ANION GAP 6 (6-14); AST (SGOT) 9 U/L (15-37); BLOOD UREA NITROGEN 27 mg/dL (7-20); BUN/CREATININE RATIO 27 (6-20); CARBON DIOXIDE 31 mmol/L (21-32); CHLORIDE 107 mmol/L (98-107); GLUCOSE 152 mg/dL (70-99); POTASSIUM 4.8 mmol/L (3.5-5.1); SODIUM 144 mmol/L (136-145); TOTAL BILIRUBIN 0.4 mg/dL (0.2-1.0); TOTAL PROTEIN 5.9 g/dL (6.4-8.2)
[2018-01-01] MEDS: INSULIN ASPART 300 UNITS/3 ML INSULN.PEN SQ (07:30)
[2018-01-01 07:36] LABS: POC GLUCOSE 114 mg/dL (70-99)
[2018-01-01] MEDS: BUDESONIDE 0.5 MG/2 ML NEBU. NEB ×2 (08:05→19:46)
[2018-01-01] MEDS: IPRATRPIUM/ALBUTEROL 0.5/2.5MG 3 ML NEBU. NEB ×4 (08:05→19:46)
[2018-01-01] MEDS: ISOSORBIDE MONONITRATE ER 30 MG TAB.ER.24H PO (08:33)
[2018-01-01] MEDS: FENOFIBRATE,MICRONIZED 134 MG CAPSULE PO (08:33)
[2018-01-01] MEDS: ASPIRIN ENTERIC COATED 81 MG TABLET.DR. PO (08:33)
[2018-01-01] MEDS: PRASUGREL 10 MG TABLET. PO (08:33)
[2018-01-01] MEDS: CITALOPRAM 20 MG TABLET. PO (08:33)
[2018-01-01] MEDS: PREGABALIN 75 MG CAPSULE PO ×2 (08:34→21:40)
[2018-01-01 09:54] LABS: SEDIMENTATION RATE 5 (0-25)
[2018-01-01] MEDS: LOSARTAN POTASSIUM 50 MG TABLET. PO (10:49)
[2018-01-01 11:20] LABS: POC GLUCOSE 212 mg/dL (70-99)
[2018-01-01 17:44] LABS: POC GLUCOSE 170 mg/dL (70-99)
[2018-01-01 21:03] LABS: POC GLUCOSE 245 mg/dL (70-99)
[2018-01-01] MEDS: ENOXAPARIN 40 MG/0.4 ML SYRINGE. SQ (21:40)
[2018-01-01] MEDS: ATORVASTATIN CALCIUM 20 MG TABLET PO (21:40)
[2018-01-01] MEDS: INSULIN DETEMIR 300 UNITS/3 ML INSULN.PEN. SQ (21:45)
[2018-01-02 04:38] LABS: HEMATOCRIT 32.6 % (36.0-47.0); HEMOGLOBIN 10.5 g/dL (12.0-15.5); MEAN CORPUSCULAR HEMOGLOBIN 27 pg (25-35); MEAN CORPUSCULAR HGB CONC 32 g/dL (31-37); MEAN CORPUSCULAR VOLUME 85 fL (79-100); PLATELET COUNT 250 x10^3/uL (140-400); RED BLOOD COUNT 3.85 x10^6/uL (3.50-5.40); WHITE BLOOD COUNT 7.7 x10^3/uL (4.0-11.0)
[2018-01-02 05:07] LABS: BLOOD UREA NITROGEN 24 mg/dL (7-20); CALCIUM 8.9 mg/dL (8.5-10.1); GLUCOSE 209 mg/dL (70-99)
[2018-01-02 05:08] LABS: ANION GAP 5 (6-14); CARBON DIOXIDE 33 mmol/L (21-32); CHLORIDE 104 mmol/L (98-107); POTASSIUM 4.3 mmol/L (3.5-5.1); SODIUM 142 mmol/L (136-145)
[2018-01-02] MEDS: SUCRALFATE 1 GM TABLET. PO ×2 (05:57→12:22)
[2018-01-02] MEDS: LEVOTHYROXINE 100 MCG TABLET PO (05:57)
[2018-01-02 07:50] LABS: POC GLUCOSE 114 mg/dL (70-99)
[2018-01-02] MEDS: ASPIRIN ENTERIC COATED 81 MG TABLET.DR. PO (08:49)
[2018-01-02] MEDS: CITALOPRAM 20 MG TABLET. PO (08:50)
[2018-01-02] MEDS: PRASUGREL 10 MG TABLET. PO (08:51)
[2018-01-02] MEDS: LOSARTAN POTASSIUM 50 MG TABLET. PO (08:51)
[2018-01-02] MEDS: ISOSORBIDE MONONITRATE ER 30 MG TAB.ER.24H PO (08:52)
[2018-01-02] MEDS: FENOFIBRATE,MICRONIZED 134 MG CAPSULE PO (08:52)
[2018-01-02] MEDS: BUDESONIDE 0.5 MG/2 ML NEBU. NEB (08:54)
[2018-01-02] MEDS: PREGABALIN 75 MG CAPSULE PO (08:54)
[2018-01-02] MEDS: IPRATRPIUM/ALBUTEROL 0.5/2.5MG 3 ML NEBU. NEB ×2 (08:55→11:34)
[2018-01-02 11:25] LABS: POC GLUCOSE 130 mg/dL (70-99)
== END 2018-01-02 15:15 | disposition home health service (06) | DRG 682 ==
LOC: ER 16:53 → 5 NORTH 19:23
PROVIDERS: Internal Medicine
DX: N17.0 Acute kidney failure with tubular necrosis (principal); J96.20 Acute and chronic respiratory failure, unspecified whether with hypoxia or hypercapnia; E11.42 Type 2 diabetes mellitus with diabetic polyneuropathy; J44.1 Chronic obstructive pulmonary disease with (acute) exacerbation; I50.30 Unspecified diastolic (congestive) heart failure; I11.0 Hypertensive heart disease with heart failure; E11.65 Type 2 diabetes mellitus with hyperglycemia; E03.9 Hypothyroidism, unspecified; E78.5 Hyperlipidemia, unspecified; E86.0 Dehydration; E87.5 Hyperkalemia; I25.10 Atherosclerotic heart disease of native coronary artery without angina pectoris; I25.2 Old myocardial infarction; K21.9 Gastro-esophageal reflux disease without esophagitis; K58.9 Irritable bowel syndrome, unspecified; M19.90 Unspecified osteoarthritis, unspecified site; Z96.659 Presence of unspecified artificial knee joint; F41.9 Anxiety disorder, unspecified; F32.9 Major depressive disorder, single episode, unspecified; T38.0X5A Adverse effect of glucocorticoids and synthetic analogues, initial encounter; Z79.4 Long term (current) use of insulin; Z79.82 Long term (current) use of aspirin; Z82.49 Family history of ischemic heart disease and other diseases of the circulatory system; Z83.3 Family history of diabetes mellitus; Z86.718 Personal history of other venous thrombosis and embolism; Z86.73 Personal history of transient ischemic attack (TIA), and cerebral infarction without residual deficits; Z90.710 Acquired absence of both cervix and uterus; Z87.01 Personal history of pneumonia (recurrent); Z87.440 Personal history of urinary (tract) infections; Z79.84 Long term (current) use of oral hypoglycemic drugs; Z79.899 Other long term (current) drug therapy; Z87.81 Personal history of (healed) traumatic fracture
CPT/HCPCS: 36415; 71045; 80048; 80053; 80076; 81001; 82010; 82553; 82962; 83605; 83690; 83735; 83880; 84132; 84443; 84484; 85007; 85025; 85027; 85651; 87040; 87804; 87804-59; 93005; 94640; 94644; 96374; 96375; 97161-GP; 97165-GO; 99285; 99285-25; J0456; J0610; J0690; J1650; J1815; J2930; J7030; J7613; J7620; J7626

== ENCOUNTER → 2018-01-07 | Outpatient (CLI) | payer MEDICARE, MEDICAID | END | disposition home or self-care (01) | LOC: MAMMO 14:11 | DX: Z12.31 Encounter for screening mammogram for malignant neoplasm of breast (principal); J44.9 Chronic obstructive pulmonary disease, unspecified | CPT/HCPCS: 77063; 77067; 94640 ==

== ENCOUNTER → 2018-01-24 | Outpatient (CLI) | payer BC, OTHER, MEDICAID, MEDICARE | END | disposition home or self-care (01) | LOC: US 12:17 | DX: N63.10 Unspecified lump in the right breast, unspecified quadrant (principal) | CPT/HCPCS: 76641 ==

== ENCOUNTER 2018-02-21 18:42 | Emergency (ER) | payer MEDICARE, MEDICAID ==
[2018-02-21] MEDS: ACETAMINOPHEN 500 MG TABLET PO (20:31)
[2018-02-21] MEDS: DIPHTH,PERTUSS(ACELL),TET TOX 0.5 ML DISP.SYRIN. VAX IM (20:35)
== END 2018-02-21 20:45 | disposition home or self-care (01) ==
LOC: ER 20:45
DX: S61.411A Laceration without foreign body of right hand, initial encounter (principal); J43.9 Emphysema, unspecified; E78.00 Pure hypercholesterolemia, unspecified; I10 Essential (primary) hypertension; E11.9 Type 2 diabetes mellitus without complications; E05.90 Thyrotoxicosis, unspecified without thyrotoxic crisis or storm; I25.2 Old myocardial infarction; Z95.5 Presence of coronary angioplasty implant and graft; Z98.1 Arthrodesis status; Z88.1 Allergy status to other antibiotic agents; Y28.8XXA Contact with other sharp object, undetermined intent, initial encounter; Y93.89 Activity, other specified; Y99.8 Other external cause status; Y92.89 Other specified places as the place of occurrence of the external cause
CPT/HCPCS: 90471; 90715; 99283-25

== ENCOUNTER 2018-05-02 05:43 | Emergency (ER) | payer MEDICARE, OTHER ==
[2018-05-02] MEDS: IPRATRPIUM/ALBUTEROL 0.5/2.5MG 3 ML NEBU. NEB (06:45)
[2018-05-02 07:05] LABS: ADD MAN DIFF? NO
[2018-05-02] MEDS: hydrOXYzine PAMOATE 25 MG CAPSULE PO (07:06)
[2018-05-02] MEDS: predniSONE 10 MG TABLET PO (07:06)
[2018-05-02 07:12] LABS: BASO # 0.1 x10^3/uL (0.0-0.2); BASO % 1 % (0-3); EOS # 0.2 x10^3/uL (0.0-0.7); EOS % 2 % (0-3); HEMATOCRIT 35.2 % (36.0-47.0); HEMOGLOBIN 11.4 g/dL (12.0-15.5); LYMPH # 1.1 x10^3/uL (1.0-4.8); LYMPH % 10 % (24-48); MEAN CORPUSCULAR HEMOGLOBIN 27 pg (25-35); MEAN CORPUSCULAR HGB CONC 33 g/dL (31-37); MEAN CORPUSCULAR VOLUME 84 fL (79-100); MONO # 0.8 x10^3/uL (0.0-1.1); MONO % 7 % (0-9); NEUT # 8.9 x10^3uL (1.8-7.7); NEUT % 81 % (31-73); PLATELET COUNT 250 x10^3/uL (140-400); RED BLOOD COUNT 4.18 x10^6/uL (3.50-5.40); RED CELL DISTRIBUTION WIDTH 13.6 % (11.5-14.5)
[2018-05-02 07:16] LABS: ANION GAP 6 (6-14); BLOOD UREA NITROGEN 20 mg/dL (7-20); CALCIUM 8.8 mg/dL (8.5-10.1); CARBON DIOXIDE 30 mmol/L (21-32); CHLORIDE 102 mmol/L (98-107); GFR 55.8; GLUCOSE 154 mg/dL (70-99); POTASSIUM 5.5 mmol/L (3.5-5.1); SODIUM 138 mmol/L (136-145)
[2018-05-02 07:42] LABS: TROPONINI < 0.017 ng/mL (0.000-0.055)
[2018-05-02] MEDS ORDERED: CONTRAST GIVEN. MC (07:45)
[2018-05-02] MEDS: IOHEXOL 300 MG/ML 100ML VIAL. IV (07:45)
[2018-05-02] MEDS: IV NORMAL SALINE 500ML BAG 500 ML IV (08:44)
[2018-05-02] MEDS: ALBUTEROL SULFATE 2.5 MG/3 ML NEBU. NEB (09:13)
== END 2018-05-02 10:26 | disposition home or self-care (01) ==
LOC: ER 05:43
DX: R42 Dizziness and giddiness (principal); J44.9 Chronic obstructive pulmonary disease, unspecified; I11.0 Hypertensive heart disease with heart failure; I50.9 Heart failure, unspecified; E03.9 Hypothyroidism, unspecified; E11.9 Type 2 diabetes mellitus without complications; I25.2 Old myocardial infarction; E78.00 Pure hypercholesterolemia, unspecified; E05.90 Thyrotoxicosis, unspecified without thyrotoxic crisis or storm; Z86.73 Personal history of transient ischemic attack (TIA), and cerebral infarction without residual deficits; Z98.61 Coronary angioplasty status; Z88.1 Allergy status to other antibiotic agents
CPT/HCPCS: 36415; 70496; 70498; 80048; 84484; 85025; 93005; 94640; 96360; 99285-25; J7040; J7512; J7613; J7620; Q0177; Q9967

== ENCOUNTER → 2018-05-27 | Outpatient (CLI) | payer MEDICARE, MEDICAID, OTHER | END | disposition home or self-care (01) | LOC: MAMMO 13:23 | DX: R92.8 Other abnormal and inconclusive findings on diagnostic imaging of breast (principal); I13.0 Hypertensive heart and chronic kidney disease with heart failure and stage 1 through stage 4 chronic kidney disease, or unspecified chronic kidney disease; E11.22 Type 2 diabetes mellitus with diabetic chronic kidney disease; I50.32 Chronic diastolic (congestive) heart failure; N18.3 Chronic kidney disease, stage 3 (moderate); E78.00 Pure hypercholesterolemia, unspecified | CPT/HCPCS: 77065; G0279 ==

== ENCOUNTER 2018-07-06 02:12 | Emergency (ER) | payer MEDICARE, MEDICAID ==
[~2018-07-06] VITALS: Ht 162.6 cm; Wt 84.4 kg
[~2018-07-06 02:12] MED LIST changes: +ACET-704 PO; +ALBU1.25 NEB; +AMLO5TAB2 PO; +ASPI-612 PO; +ASPI-630 PO; +BENZ-8 PO; -BENZ100C15 PO; +BUDE0.5A NEB; +DILT300C40 PO; +DILT30TA PO; -FENO145T2 PO; +FENO145T30 PO; +HYDR25TA PO; -IPRA3AMP NEB; +IPRA3AMP29 NEB; -METF-620 PO; +METF10003 PO; +ONDA4TAB7 PO; +PREG150C PO; +SPIR25TA PO; -SPIR50TA2 PO; +SPIR50TA4 PO; +TRAM50TA PO
[2018-07-06] MEDS ORDERED: IV NORMAL SALINE 1000ML BAG 1,000 ML IV SCH (02:45)
--- NOTE | 2018-07-06 02:49 | PHYS DOC ---
Past Medical History Past Medical History: Anxiety, Bronchitis, CHF, COPD, Depression, Diabetes- Type II, High Cholesterol, Hypertension, Hyperthyroid, NM, TIA, Other Additional Past Medical Histor: EMPHYSEMA, BLE nueropathy Past Surgical History: Angioplasty, Other Additional Past Surgical Histo: left knee replacementx2, spinal fusion, CTR, Alcohol Use: None Drug Use: None Adult General Chief Complaint Chief Complaint: CHEST PAIN HPI HPI Patient is a 63-year-old female who presents to ER via EMS with multiple complaints. Patient states that she has not been feeling well for the last couple of weeks. She indicates that over the last week, she has had nausea with vomiting and diarrhea. Patient states that she has also had a lot of pain in her abdomen. She rates that pain at a 9 out of 10. She denies any chest pain but does admit to some burning in her chest after the vomiting. She admits to shortness of breath but states that she is always short of breath from COPD. Patient is on oxygen at all times. Patient states that she was seen at [facility] recently for similar complaints and she states that they didn't really find anything wrong. Patient states his symptoms are worsened when she tries to eat or drink anything and nothing improves her symptoms. Review of Systems Review of Systems Constitutional: Denies fever or chills [] Respiratory: He admits to chronic shortness of breath and cough associated with COPD[] Cardiovascular: Denies chest pain[] GI: Complains of abdominal pain with nausea, vomiting and loose stools[] Musculoskeletal: Complains of chronic back and neck pain[] Neurologic: Denies headache, focal weakness or sensory changes [] All other systems were reviewed and found to be within normal limits, except as documented in this note. Current Medications Current Medications Current Medications Medications (Trade) Dose Ordered Sig/Juan Start Time Stop Time Status Last Admin Dose Admin Fentanyl Citrate (Fentanyl 2ml Vial) 50 mcg 1X ONCE 07/06/18 03:00 07/06/18 03:01 DC 07/06/18 03:04 50 MCG Ondansetron HCl (Zofran) 4 mg 1X ONCE 07/06/18 03:00 07/06/18 03:01 DC 07/06/18 03:04 4 MG Sodium Chloride 1,000 ml @ 1,000 mls/hr Q1H 07/06/18 02:45 07/06/18 03:44 DC 07/06/18 03:04 1,000 MLS/HR Allergies Allergies Allergies Coded Allergies Type Severity Reaction Last Updated Verified levofloxacin Allergy Intermediate Hives 03/05/17 Yes Physical Exam Physical Exam Constitutional: Well developed, well nourished, no acute distress, non-toxic appearance. [] HENT: Normocephalic, atraumatic, bilateral external ears normal, oropharynx moist, no oral exudates, nose normal. [] Eyes: PERRLA, EOMI, conjunctiva normal, no discharge. [] Neck: Normal range of motion, no tenderness, supple, no stridor. [] Cardiovascular:Heart rate regular rhythm, no murmur [] Lungs & Thorax: Bilateral breath sounds clear to auscultation [] Abdomen: Bowel sounds normal, soft, with diffuse tenderness. [] Skin: Warm, dry, no erythema, no rash. [] Extremities: No tenderness, no cyanosis, no clubbing, ROM intact, no edema. [] Neurologic: Alert and oriented X 3, normal motor function, normal sensory function, no focal deficits noted. [] Current Patient Data Vital Signs Vital Signs Date Time Temp Pulse Resp B/P (MAP) Pulse Ox O2 Delivery O2 Flow Rate FiO2 07/06/18 02:12 99.0 80 20 136/60 (85) 95 Nasal Cannula 3.0 99.0 Lab Values Laboratory Tests Test 07/06/18 02:55 07/06/18 03:00 White Blood Count 8.1 x10^3/uL (4.0-11.0) Red Blood Count 3.77 x10^6/uL (3.50-5.40) Hemoglobin 10.6 g/dL (12.0-15.5) L Hematocrit 31.8 % (36.0-47.0) L Mean Corpuscular Volume 84 fL (79-100) Mean Corpuscular Hemoglobin 28 pg (25-35) Mean Corpuscular Hemoglobin Concent 33 g/dL (31-37) Red Cell Distribution Width 16.4 % (11.5-14.5) H Platelet Count 255 x10^3/uL (140-400) Neutrophils (%) (Auto) 70 % (31-73) Lymphocytes (%) (Auto) 20 % (24-48) L Monocytes (%) (Auto) 9 % (0-9) Eosinophils (%) (Auto) 1 % (0-3) Basophils (%) (Auto) 1 % (0-3) Neutrophils # (Auto) 5.7 x10^3uL (1.8-7.7) Lymphocytes # (Auto) 1.6 x10^3/uL (1.0-4.8) Monocytes # (Auto) 0.8 x10^3/uL (0.0-1.1) Eosinophils # (Auto) 0.1 x10^3/uL (0.0-0.7) Basophils # (Auto) 0.0 x10^3/uL (0.0-0.2) Sodium Level 135 mmol/L (136-145) L Potassium Level 5.1 mmol/L (3.5-5.1) Chloride Level 103 mmol/L (98-107) Carbon Dioxide Level 26 mmol/L (21-32) Anion Gap 6 (6-14) Blood Urea Nitrogen 33 mg/dL (7-20) H Creatinine 1.7 mg/dL (0.6-1.0) H Estimated GFR (Cockcroft-Gault) 30.3 BUN/Creatinine Ratio 19 (6-20) Glucose Level 178 mg/dL (70-99) H Calcium Level 9.3 mg/dL (8.5-10.1) Total Bilirubin 0.3 mg/dL (0.2-1.0) Aspartate Amino Transferase (AST) 11 U/L (15-37) L Alanine Aminotransferase (ALT) 16 U/L (14-59) Alkaline Phosphatase 40 U/L (46-116) L Troponin I Quantitative < 0.017 ng/mL (0.000-0.055) Total Protein 7.1 g/dL (6.4-8.2) Albumin 3.6 g/dL (3.4-5.0) Albumin/Globulin Ratio 1.0 (1.0-1.7) Lipase 219 U/L (73-393) Urine Collection Type Unknown Urine Color Yellow Urine Clarity Clear Urine pH 6.0 Urine Specific [place] 1.025 Urine Protein Negative mg/dL (NEG-TRACE) Urine Glucose (UA) Negative mg/dL (NEG) Urine Ketones (Stick) Negative mg/dL (NEG) Urine Blood Negative (NEG) Urine Nitrite Negative (NEG) Urine Bilirubin Negative (NEG) Urine Urobilinogen Dipstick 0.2 mg/dL (0.2 mg/dL) Urine Leukocyte Esterase Trace (NEG) Urine RBC 0 /HPF (0-2) Urine WBC 5-10 /HPF (0-4) Urine Squamous Epithelial Cells Mod /LPF Urine Bacteria Few /HPF (0-FEW) Urine Hyaline Casts Many /HPF Urine Mucus Marked /LPF Laboratory Tests 07/06/18 02:55 Laboratory Tests 07/06/18 02:55 EKG EKG [] Radiology/Procedures Radiology/Procedures [] Course & Med Decision Making Course & Med Decision Making Pertinent Labs and Imaging studies reviewed. (See chart for details) [] Dragon Disclaimer Dragon Disclaimer This electronic medical record was generated, in whole or in part, using a voice recognition dictation system. Departure Departure Impression: Primary Impression: Nausea and vomiting Additional Impressions: Diarrhea Dehydration Disposition: HOME, SELF-CARE Condition: STABLE Referrals: LENNY REMY (PCP) Patient Instructions: Dehydration, Adult, Diarrhea, Nausea and Vomiting Additional Instructions: Take prescribed medications as directed and follow-up with your primary care provider in the next few days. Scripts Ranitidine Hcl (ZANTAC) 150 Mg Tablet 150 MG PO BID for 7 Days, #14 TAB Prov: EVELINA SORIANO Jr. DO 07/06/18 Diphenoxylate Hcl/Atropine (LOMOTIL TABLET) 1 Each Tablet 1 TAB PO TID PRN for DIARRHEA, #12 TAB Prov: EVELINA SORIANO Jr. DO 07/06/18 Ondansetron Hcl (ZOFRAN) 4 Mg Tablet 4 MG PO PRN TID, #15 nausea/vomiting Prov: EVELINA SORIANO Jr. DO 07/06/18 Problem Qualifiers Primary Impression: Nausea and vomiting Vomiting type: unspecified Vomiting Intractability: non-intractable Qualified Codes: R11.2 - Nausea with vomiting, unspecified Additional Impressions: Diarrhea Diarrhea type: unspecified type Qualified Codes: R19.7 - Diarrhea, unspecified EVELINA SORIANO Jr. DO Jul 06, 2018 02:48
--- NOTE | 2018-07-06 02:56 | EKG ---
[facility] [address] [place] [address] Test Date: 2018-07-06 Test Time: 02:20:57 Pat Name: ESVIN SCHROEDER Department: Room: Gender: F Personal Protection Specialist: ADDY : 1955 Requested By: EVELINA SORIANO Order Number: [id number] Reading MD: Measurements Intervals [place] Rate: 72 P: 60 UT: 122 QRS: 46 QRSD: 88 T: 60 QT: 368 QTc: 404 Interpretive Statements SINUS RHYTHM QRS(T) CONTOUR ABNORMALITY CONSIDER ANTEROLATERAL MYOCARDIAL DAMAGE POSSIBLY ABNORMAL ECG RI6.01 No previous ECG available for comparison
[2018-07-06] MEDS ORDERED: ONDANSETRON PF 4 MG/2 ML VIAL. IV ONE (03:00)
[2018-07-06] MEDS ORDERED: fentaNYL PF VIAL 100 MCG/2 ML VIAL IV ONE (03:00)
[2018-07-06 03:02] LABS: BASO % 1 % (0-3); EOS # 0.1 x10^3/uL (0.0-0.7); EOS % 1 % (0-3); HEMATOCRIT 31.8 % (36.0-47.0); HEMOGLOBIN 10.6 g/dL (12.0-15.5); LYMPH # 1.6 x10^3/uL (1.0-4.8); LYMPH % 20 % (24-48); MEAN CORPUSCULAR HEMOGLOBIN 28 pg (25-35); MEAN CORPUSCULAR HGB CONC 33 g/dL (31-37); MEAN CORPUSCULAR VOLUME 84 fL (79-100); MONO # 0.8 x10^3/uL (0.0-1.1); MONO % 9 % (0-9); NEUT # 5.7 x10^3uL (1.8-7.7); NEUT % 70 % (31-73); PLATELET COUNT 255 x10^3/uL (140-400); RED BLOOD COUNT 3.77 x10^6/uL (3.50-5.40); RED CELL DISTRIBUTION WIDTH 16.4 % (11.5-14.5); WHITE BLOOD COUNT 8.1 x10^3/uL (4.0-11.0)
[2018-07-06 03:14] LABS: CALCIUM 9.3 mg/dL (8.5-10.1); CREATININE 1.7 mg/dL (0.6-1.0); GFR 30.3; POTASSIUM 5.1 mmol/L (3.5-5.1)
[2018-07-06 03:20] LABS: ALBUMIN 3.6 g/dL (3.4-5.0); TOTAL BILIRUBIN 0.3 mg/dL (0.2-1.0); TOTAL PROTEIN 7.1 g/dL (6.4-8.2)
[2018-07-06 03:22] LABS: BILIRUBIN,URINE NEGATIVE (NEG); CLARITY,URINE CLEAR; COLOR,URINE YELLOW; NITRITE,URINE NEGATIVE (NEG); PROTEIN,URINE NEGATIVE (NEG-TRACE); UROBILINOGEN,URINE 0.2 mg/dL (0.2 mg/dL)
[2018-07-06 03:31] LABS: BACTERIA,URINE FEW /HPF (0-FEW); HYALINE CASTS, URINE MANY /HPF; RBC,URINE 0 /HPF (0-2); SQUAMOUS EPITHELIAL CELL,UR MOD /LPF
[2018-07-06] MEDS ORDERED: DIPH1TAB PO (04:27)
[2018-07-06] MEDS ORDERED: RANI150T21 PO (04:27)
[2018-07-06] MEDS ORDERED: ONDA4TAB7 PO (04:27)
[2018-07-06 04:30] VITALS: BP 106/51
== END 2018-07-06 04:50 | disposition home or self-care (01) ==
LOC: ER 02:12
DX: E86.0 Dehydration (principal); R19.7 Diarrhea, unspecified; R06.02 Shortness of breath; J44.9 Chronic obstructive pulmonary disease, unspecified; I11.0 Hypertensive heart disease with heart failure; I50.9 Heart failure, unspecified; E11.40 Type 2 diabetes mellitus with diabetic neuropathy, unspecified; E78.00 Pure hypercholesterolemia, unspecified; I25.2 Old myocardial infarction; Z86.73 Personal history of transient ischemic attack (TIA), and cerebral infarction without residual deficits; E05.90 Thyrotoxicosis, unspecified without thyrotoxic crisis or storm; Z98.1 Arthrodesis status; Z95.5 Presence of coronary angioplasty implant and graft; Z88.1 Allergy status to other antibiotic agents
CPT/HCPCS: 36415; 80053; 81001; 83690; 84484; 85025; 87086; 93005; 96361; 96374; 96375; 99285; J2405; J3010; J7030

== ENCOUNTER 2018-11-25 16:53 | Emergency (ER) | payer MEDICARE, MEDICAID ==
[~2018-11-25] VITALS: Ht 162.6 cm; Wt 82.6 kg
[~2018-11-25 16:53] MED LIST changes: +ALBU2.5V8 IH; +AMLO10TA6 PO; -AMLO2.5T PO; +AMLO2.5T3 PO; -AMLO5TAB2 PO; +AMLO5TAB7 PO; +CARV25TA2 PO; +DIPH1TAB PO; -GABA-586 PO; +GABA300C18 PO; -HYDR-2758 PO; +HYDR-2761 PO; -HYDR-2762 PO; +HYDR-2765 PO; +HYDR-3164 PO; -HYDR-971 PO; +LOSA-73 PO; -LOSA50TA2 PO; -METF10003 PO; +METF10007 PO; +ONDA4TAB12 PO; -PROAIR HFA8.5 GM IH; +RANI150T21 PO; +SPIR25TA5 PO
[2018-11-25] MEDS ORDERED: IV NORMAL SALINE 1000ML BAG 1,000 ML IV SCH (17:01)
--- NOTE | 2018-11-25 17:07 | PHYS DOC ---
Past Medical History Past Medical History: Anxiety, Bronchitis, CHF, COPD, Depression, Diabetes- Type II, High Cholesterol, Hypertension, Hyperthyroid, ND, TIA, Other Additional Past Medical Histor: EMPHYSEMA, BLE nueropathy Past Surgical History: Angioplasty, Other Additional Past Surgical Histo: left knee replacementx2, spinal fusion, CTR, Smoking: Quit Greater Than 1 Year Alcohol Use: None Drug Use: None Adult General Chief Complaint Chief Complaint: MULTIPLE COMPLAINTS HPI HPI Patient is a 63-year-old female who presents to the emergency department via EMS. She states that she just got out of the hospital yesterday after being admitted for a COPD exacerbation. She states that she was treated with steroids but does not think she received any antibiotics. She states that she felt better yesterday when she was released from the hospital after a three-day hospital stay. However she states that today she began experiencing increasing shortness of breath. She has had a nonproductive cough. She was 3-1/2 L of nasal cannula oxygen chronically. She has not had any chest pain, or abdominal pain. She has had some nausea, and several episodes of nonbloody diarrhea. There are no alleviating or exacerbating factors to her symptoms otherwise. Notes from the patient's recent hospital stay have been reviewed. She is currently taking prednisone. Review of Systems Review of Systems Constitutional: Denies fever or chills [] Eyes: Denies change in visual acuity, redness, or eye pain [] HENT: Denies nasal congestion or sore throat [] Respiratory: No additional information not addressed in HP [] Cardiovascular: The patient denies any shortness of breath, chest pain, palpitations, or orthopnea [] GI: Denies abdominal pain, vomiting, or bloody stools [] : Denies dysuria or hematuria [] Musculoskeletal: Denies back pain or joint pain [] Integument: Denies rash or skin lesions [] Neurologic: Denies headache, focal weakness or sensory changes [] Endocrine: Denies polyuria or polydipsia [] All other systems were reviewed and found to be within normal limits, except as documented in this note. Current Medications Current Medications Current Medications Medications (Trade) Dose Ordered Sig/Juan Start Time Stop Time Status Last Admin Dose Admin Albuterol/ Ipratropium (Duoneb) 3 ml 1X ONCE 11/25/18 17:15 11/25/18 17:16 DC 11/25/18 17:19 3 ML Furosemide (Lasix) 20 mg 1X ONCE 11/25/18 19:15 11/25/18 19:16 DC 11/25/18 19:25 20 MG Sodium Chloride 1,000 ml @ 1,000 mls/hr Q1H 11/25/18 17:01 11/25/18 18:00 DC 11/25/18 18:02 1,000 MLS/HR Allergies Allergies Allergies Coded Allergies Type Severity Reaction Last Updated Verified levofloxacin Allergy Intermediate Hives 03/05/17 Yes Physical Exam Physical Exam PHYSICAL EXAM: CONSTITUTIONAL: Well developed, well nourished HEAD: normocephalic, atraumatic EENT: PERRL, EOMI. Conjunctivae normal color, sclerae non-icteric; moist mucous membranes. NECK: Supple, non-tender; no meningismus. LUNGS: There are globally diminished breath sounds in all lung [place], with a faint scattered expiratory wheezes, breathing even and unlabored. There are no rales or rhonchi.. HEART: Regular rate and rhythm, no murmur CHEST: No deformity; non-tender ABDOMEN: The abdomen is soft, and non-tender, no masses or bruits. EXTREM: Normal ROM; no deformity, no calf tenderness. Normal pulses palpable in all extremities. There is no pedal edema. SKIN: No rash; no diaphoresis NEURO: Alert; normal speech and cognition; CN's grossly intact; strength grossly intact without focal deficit. BACK: No CVA TTP. Current Patient Data Vital Signs Vital Signs Date Time Temp Pulse Resp B/P (MAP) Pulse Ox O2 Delivery O2 Flow Rate FiO2 11/25/18 17:21 98 Nasal Cannula 4.0 11/25/18 16:55 98.4 84 18 178/82 (114) 98.4 Lab Values Laboratory Tests Test 11/25/18 17:20 11/25/18 17:45 White Blood Count 9.9 x10^3/uL (4.0-11.0) Red Blood Count 4.24 x10^6/uL (3.50-5.40) Hemoglobin 12.1 g/dL (12.0-15.5) Hematocrit 34.6 % (36.0-47.0) L Mean Corpuscular Volume 82 fL (79-100) Mean Corpuscular Hemoglobin 29 pg (25-35) Mean Corpuscular Hemoglobin Concent 35 g/dL (31-37) Red Cell Distribution Width 14.4 % (11.5-14.5) Platelet Count 303 x10^3/uL (140-400) Neutrophils (%) (Auto) 67 % (31-73) Lymphocytes (%) (Auto) 23 % (24-48) L Monocytes (%) (Auto) 9 % (0-9) Eosinophils (%) (Auto) 1 % (0-3) Basophils (%) (Auto) 0 % (0-3) Neutrophils # (Auto) 6.6 x10^3uL (1.8-7.7) Lymphocytes # (Auto) 2.3 x10^3/uL (1.0-4.8) Monocytes # (Auto) 0.9 x10^3/uL (0.0-1.1) Eosinophils # (Auto) 0.1 x10^3/uL (0.0-0.7) Basophils # (Auto) 0.0 x10^3/uL (0.0-0.2) Sodium Level 141 mmol/L (136-145) Potassium Level 3.7 mmol/L (3.5-5.1) Chloride Level 98 mmol/L (98-107) Carbon Dioxide Level 36 mmol/L (21-32) H Anion Gap 7 (6-14) Blood Urea Nitrogen 25 mg/dL (7-20) H Creatinine 1.4 mg/dL (0.6-1.0) H Estimated GFR (Cockcroft-Gault) 37.9 BUN/Creatinine Ratio 18 (6-20) Glucose Level 185 mg/dL (70-99) H Calcium Level 9.3 mg/dL (8.5-10.1) Total Bilirubin 0.3 mg/dL (0.2-1.0) Aspartate Amino Transferase (AST) 23 U/L (15-37) Alanine Aminotransferase (ALT) 20 U/L (14-59) Alkaline Phosphatase 53 U/L (46-116) Troponin I Quantitative < 0.017 ng/mL (0.000-0.055) HT-Mcj-H-Type Natriuretic Peptide 1980 pg/mL (0-124) H Total Protein 7.6 g/dL (6.4-8.2) Albumin 3.5 g/dL (3.4-5.0) Albumin/Globulin Ratio 0.9 (1.0-1.7) L Urine Collection Type Unknown Urine Color Yellow Urine Clarity Clear Urine pH 5.5 Urine Specific [place] 1.025 Urine Protein >=300 mg/dL (NEG-TRACE) Urine Glucose (UA) Negative mg/dL (NEG) Urine Ketones (Stick) Negative mg/dL (NEG) Urine Blood Negative (NEG) Urine Nitrite Negative (NEG) Urine Bilirubin Negative (NEG) Urine Urobilinogen Dipstick 0.2 mg/dL (0.2 mg/dL) Urine Leukocyte Esterase Negative (NEG) Urine RBC 1-2 /HPF (0-2) Urine WBC 1-4 /HPF (0-4) Urine Squamous Epithelial Cells Mod /LPF Urine Bacteria 0 /HPF (0-FEW) Urine Hyaline Casts Many /HPF Urine Mucus Marked /LPF Stool Occult Blood Positive (NEG) Laboratory Tests 11/25/18 17:20 Laboratory Tests 11/25/18 17:20 EKG EKG [Normal sinus rhythm at a rate of 79 beats for minute, normal axis, normal intervals, there are no acute ischemic ST/T changes.] Radiology/Procedures Radiology/Procedures [ER physician preliminary chest x-ray interpretation: No acute abnormality.] Course & Med Decision Making Course & Med Decision Making Pertinent Labs and Imaging studies reviewed. (See chart for details) [7:55 PM: The patient's condition remains stable. She is feeling better, her oxygen saturation is normal on her home oxygen setting. I discussed the case with the patient's PCP, Dr. Oneal , who is familiar with the patient and saw her yesterday upon hospital release. Both feel that the patient is stable for outpatient follow-up. Her blood pressure is noted to be elevated. She has not taken her medications today. She'll be given a dose of an antihypertensive medication prior to discharge. Her lung sounds have improved on repeat exam. Dragon Disclaimer Dragon Disclaimer This electronic medical record was generated, in whole or in part, using a voice recognition dictation system. Departure Departure Impression: Primary Impression: COPD exacerbation Additional Impression: Diarrhea Disposition: 01 HOME, SELF-CARE Condition: STABLE Referrals: KARY RANDALL MD Patient Instructions: Chronic Obstructive Pulmonary Disease Exacerbation, Diarrhea Problem Qualifiers FREDI FAM MD Nov 25, 2018 17:07
[2018-11-25] MEDS ORDERED: IPRATRPIUM/ALBUTEROL 0.5/2.5MG 3 ML NEBU. NEB ONE (17:15)
--- NOTE | 2018-11-25 17:41 | EKG ---
[facility] [address] [place] [address] Test Date: 2018-11-25 Test Time: 17:12:30 Pat Name: ESVIN SCHROEDER Department: Room: Gender: Female Sign Installer: : 1955 Requested By: FREDI FAM Order Number: [id number] Reading MD: Saúl Miller Measurements Intervals [place] Rate: 78 P: SC: QRS: 45 QRSD: 86 T: 56 QT: 378 QTc: 434 Interpretive Statements SINUS RHYTHM Electronically Signed On 11-28-2018 17:21:06 FARM AGENT by Saúl Miller
[2018-11-25 17:45] LABS: BASO % 0 % (0-3); EOS # 0.1 x10^3/uL (0.0-0.7); EOS % 1 % (0-3); HEMATOCRIT 34.6 % (36.0-47.0); HEMOGLOBIN 12.1 g/dL (12.0-15.5); LYMPH # 2.3 x10^3/uL (1.0-4.8); LYMPH % 23 % (24-48); MEAN CORPUSCULAR HEMOGLOBIN 29 pg (25-35); MEAN CORPUSCULAR HGB CONC 35 g/dL (31-37); MEAN CORPUSCULAR VOLUME 82 fL (79-100); MONO # 0.9 x10^3/uL (0.0-1.1); MONO % 9 % (0-9); NEUT # 6.6 x10^3uL (1.8-7.7); NEUT % 67 % (31-73); PLATELET COUNT 303 x10^3/uL (140-400); RED BLOOD COUNT 4.24 x10^6/uL (3.50-5.40); RED CELL DISTRIBUTION WIDTH 14.4 % (11.5-14.5); WHITE BLOOD COUNT 9.9 x10^3/uL (4.0-11.0)
[2018-11-25 18:06] LABS: BILIRUBIN,URINE NEGATIVE (NEG); CLARITY,URINE CLEAR; COLOR,URINE YELLOW; NITRITE,URINE NEGATIVE (NEG); PH,URINE 5.5; PROTEIN,URINE >=300 mg/dL (NEG-TRACE); UROBILINOGEN,URINE 0.2 mg/dL (0.2 mg/dL)
[2018-11-25 18:06] LABS: CALCIUM 9.3 mg/dL (8.5-10.1); CREATININE 1.4 mg/dL (0.6-1.0); GFR 37.9; POTASSIUM 3.7 mmol/L (3.5-5.1)
[2018-11-25 18:11] LABS: ALBUMIN 3.5 g/dL (3.4-5.0); ALBUMIN/GLOBULIN RATIO 0.9 (1.0-1.7); TOTAL BILIRUBIN 0.3 mg/dL (0.2-1.0); TOTAL PROTEIN 7.6 g/dL (6.4-8.2)
[2018-11-25 18:13] LABS: FECAL OB PT POSITIVE (NEG)
[2018-11-25 18:15] LABS: BACTERIA,URINE 0 /HPF (0-FEW)
[2018-11-25 18:16] LABS: HYALINE CASTS, URINE MANY /HPF; SQUAMOUS EPITHELIAL CELL,UR MOD /LPF
[2018-11-25] MEDS ORDERED: FUROSEMIDE 20 MG/2 ML VIAL. IVP ONE (19:15)
[2018-11-25] MEDS ORDERED: cloNIDine HCL 0.1 MG TABLET PO ONE (20:00)
[2018-11-25 20:10] VITALS: BP 211/95
--- NOTE | 2018-11-25 21:17 | RAD ---
PORTABLE CHEST 1V Clinical Indication: SOB, COUGH Comparison: AP chest, November 21, 2018. Findings: The cardiomediastinal silhouette is normal. Lungs are clear. Lungs are hyperexpanded. There is no pneumothorax. No pleural effusion is appreciated. No acute bone abnormality. Mid thoracic vertebroplasties redemonstrated. IMPRESSION: No acute cardiopulmonary process. Electronically signed by: Emil Jimenez MD (11/25/2018 9:13 PM) [facility]
--- NOTE | 2018-11-25 21:19 | RAD ---
CHEST PA LATERAL History: DYSPNEA Comparison: AP chest, earlier same day. Findings: The cardiomediastinal silhouette is normal. Pulmonary vasculature is normal. The lungs are hyperexpanded. The lungs are clear. No pleural effusion or pneumothorax is seen. Diffuse demineralization. There are 2 contiguous vertebral body compression fractures of the midthoracic spine that have been treated with vertebroplasty. IMPRESSION: No acute cardiopulmonary process. Electronically signed by: Emil Jimenez MD (11/25/2018 9:15 PM) [facility]
== END 2018-11-25 20:15 | disposition home or self-care (01) ==
LOC: ER 16:53
DX: J44.1 Chronic obstructive pulmonary disease with (acute) exacerbation (principal); R19.7 Diarrhea, unspecified; E11.40 Type 2 diabetes mellitus with diabetic neuropathy, unspecified; E03.9 Hypothyroidism, unspecified; E78.00 Pure hypercholesterolemia, unspecified; Z86.73 Personal history of transient ischemic attack (TIA), and cerebral infarction without residual deficits; I25.2 Old myocardial infarction; I11.0 Hypertensive heart disease with heart failure; I50.9 Heart failure, unspecified; Z87.891 Personal history of nicotine dependence; Z98.1 Arthrodesis status; Z95.5 Presence of coronary angioplasty implant and graft; Z88.1 Allergy status to other antibiotic agents
CPT/HCPCS: 36415; 71045; 71046; 80053; 81001; 82274; 83880; 84484; 85025; 93005; 94640; 96361; 96374; 99284; J1940; J7030; J7620

== ENCOUNTER 2019-12-16 11:11 | Emergency (ER) | payer MEDICARE, MEDICAID ==
[~2019-12-16] VITALS: Ht 162.6 cm; Wt 64.0 kg
[~2019-12-16 11:11] MED LIST changes: -AMLO10TA6 PO; +AMLO10TA8 PO; -AMLO2.5T3 PO; +AMLO2.5T5 PO; +AMLO5TAB10 PO; -AMLO5TAB7 PO; -BUPR300T4 PO; +BUPR300T92 PO; +CARV12.511 PO; +FENO145T3 PO; -FENO145T30 PO; +INSU100I11 SQ; +LACT1CAP19 PO; +LEVO100T PO; +MONT10TA49 PO; -MONT10TA9 PO; +OMEP20CA16 PO; -OMEP20CA9 PO; +PRED20TA PO; +RANI-376 PO; -RANI150T21 PO; +SIMV40TA18 PO; -SIMV40TA3 PO
[2019-12-16] MEDS ORDERED: ORPHENADRINE CITRATE 60 MG/2 ML VIAL. IM ONE (11:45)
[2019-12-16] MEDS ORDERED: HYDROcodone/APAP 5/325MG 1 TAB TABLET PO ONE (11:45)
--- NOTE | 2019-12-16 12:30 | PHYS DOC ---
Past Medical History Past Medical History: Anxiety, Bronchitis, CHF, COPD, Depression, Diabetes-Type II, High Cholesterol, Hypertension, Hyperthyroid, [place], TIA, Other Additional Past Medical Histor: EMPHYSEMA, BLE nueropathy Past Surgical History: Angioplasty, Other Additional Past Surgical Histo: left knee replacementx2, spinal fusion, CTR, Alcohol Use: None Drug Use: None Adult General Chief Complaint Chief Complaint: MECHANICAL FALL HPI HPI Patient is a 64 year old female with a history of diabetes, hypertension that presents to the ED following a fall 3 days ago. Patient states that 3 days ago she fell backwards out of her chair and hit the back of her head on the concrete. She reports that after the incident she did experience some lightheaded and dizziness. Patient endorses tenderness on the crown of her head. She denies any blood, loss of consciousness, dizziness, nausea, vomiting, short of breath, chest pain. She states that she is currently on blood thinners. Patient denies any vision changes, numbness or tingling. Patient denies neck pain Review of Systems Review of Systems Constitutional: Denies fever or chills Eyes: Denies redness or eye pain HENT: Denies nasal congestion or sore throat. Reports posterior head pain Respiratory: Denies cough or shortness of breath Cardiovascular: Denies chest pain or palpitations GI: Denies abdominal pain, nausea, or vomiting : Denies dysuria or hematuria Musculoskeletal: Denies back pain or joint pain Integument: Denies rash or skin lesions Neurologic: Denies headache, focal weakness or sensory changes Complete systems were reviewed and found to be within normal limits, except as documented in this note. Current Medications Current Medications Current Medications Medications (Trade) Dose Ordered Sig/Juan Start Time Stop Time Status Last Admin Dose Admin Acetaminophen/ Hydrocodone Bitart (Lortab 5/325) 1 tab 1X ONCE 12/16/19 11:45 12/16/19 11:46 DC 12/16/19 12:35 1 TAB Albuterol Sulfate (Ventolin Neb Soln) 2.5 mg 1X ONCE 12/16/19 14:15 12/16/19 14:16 DC 12/16/19 14:33 2.5 MG Ondansetron HCl (Zofran Odt) 4 mg 1X ONCE 12/16/19 13:30 12/16/19 13:31 DC 1/22/20 13:28 4 MG Orphenadrine Citrate (Norflex) 60 mg 1X ONCE 12/16/19 11:45 12/16/19 11:46 DC 12/16/19 12:35 60 MG Allergies Allergies Allergies Coded Allergies Type Severity Reaction Last Updated Verified levofloxacin Allergy Intermediate Hives 03/05/17 Yes Physical Exam Physical Exam Constitutional: Well developed, well nourished, no acute distress, non-toxic appearance HENT: Normocephalic, atraumatic, oropharynx moist. Tenderness to palpation posterior portion of the head, no evidence of trauma, edema, bony abnormality. Eyes: PERRL, EOMI, conjunctiva normal, no discharge Neck: Normal range of motion, no tenderness, supple Cardiovascular: Heart rate normal, regular rhythm Lungs & Thorax: Bilateral breath sounds clear to auscultation, no wheezing Abdomen: Soft, no tenderness Skin: Warm, dry, no erythema, no rash Back: Diffusely tender to palpation. No vertebral step-off. No CVA tenderness. Large area of ecchymosis over the lower lumbar spine and sacral region bilaterally Extremities: Wrist and palpation of the right AC joint, no erythema or echymosis. Neurologic: Alert and oriented X 3, normal motor function, normal sensory function, no focal deficits noted Psychologic: Affect normal, judgement normal, mood normal Current Patient Data Vital Signs Vital Signs Date Time Temp Pulse Resp B/P (MAP) Pulse Ox O2 Delivery O2 Flow Rate FiO2 12/16/19 14:48 72 22 99 12/16/19 14:33 Nasal Cannula 3.0 12/16/19 11:21 98.1 144/71 (95) 98.1 EKG EKG [] Radiology/Procedures Radiology/Procedures PROCEDURE: CT HEAD AND CERVICAL SPINE WO CT HEAD AND CERVICAL SPINE WO Date: 12/16/2019 11:38 AM Clinical Indication: Pain, fall Comparison: 05/02/2018. Technique: 5 mm axial tomographic images were obtained of the head without contrast. These were viewed on brain and bone windows. CT imaging of the cervical spine was performed without contrast. Coronal and sagittal reformatted images were performed. One or more of the following dose reduction techniques were utilized: Automated exposure control (AEC), Adjustment of mA and/or kV according to patient size, Use of iterative reconstruction technique such as ASiR, CT scan done according to ALARA and image gently/image wisely HEAD FINDINGS: The brain parenchyma is normal in attenuation. No intra- or extra-axial mass or fluid collection. No acute hemorrhage. The ventricles are normal in size, shape, and morphology. The soni-white matter junction is normal. The basilar cisterns are patent. The visualized paranasal sinuses are normal. The visualized portions of the orbits and globes are normal. The mastoid air cells are clear. No aggressive osseous lesion or fracture. CERVICAL SPINE FINDINGS: Straightening of the cervical lordosis. No acute fracture. No aggressive lytic or blastic osseous lesion. Mild to moderate multilevel degenerative disc height loss. Multilevel disc protrusions and marginal osteophytes results in multilevel spinal canal stenosis. Multilevel uncovertebral and facet arthrosis results in multilevel neural foraminal narrowing. The thyroid gland is normal. No cervical lymphadenopathy. The visualized aerodigestive tract is unremarkable. Centrilobular emphysema. IMPRESSION: 1. No acute intracranial process. 2. No acute osseous abnormality of the cervical spine. Electronically signed by: Jarrett Rowan MD (12/16/2019 12:33 PM) [id number] PROCEDURE: SACRUM & COCCYX 3V LUMBAR SPINE 2-3V, PELVIS, SACRUM COCCYX 3V History: Pain, fall Comparison/Correlation: None Findings: Frontal view of the pelvis was obtained. Frontal and lateral views of the sacrum and coccyx were obtained. A total of 3 images of the lumbar spine were obtained. Osteopenia is noted. Myocardial clips are present. Alignment is unremarkable. Moderate L4-5 disc space narrowing is present. Mild L5-S1 disc space narrowing is present. No fracture or bone destruction. Calcification involvement of the abdominal aorta and iliac arteries noted. Calcific densities involving the right upper quadrant noted appear to represent vascular calcification. No displaced fracture or bony destructive findings. Hip joint spaces are symmetric. Sacroiliac joints are unremarkable. Impression: No acute process. Consider further imaging if occult process is a persistent concern. Electronically signed by: Bob Haile MD (12/16/2019 12:34 PM) [facility] PROCEDURE: SHOULDER 2+V RIGHT SHOULDER 2+V RIGHT History: Pain. Fall. Technique: 3 views right shoulder. Comparison: August 13, 2017 Findings: Normal alignment of the glenohumeral and acromioclavicular joints. No fracture. Impression: 1. No acute osseous abnormality. Electronically signed by: Ronn Nelson DO (12/16/2019 12:34 PM) [id number] Course & Med Decision Making Course & Med Decision Making Pertinent Labs and Imaging studies reviewed. (See chart for details) Patient with a history of diabetes, hypertension and anticoagulation presents to the ED following a fall when she hit the back of her head 3 days ago. Patient reports head pain, shoulder pain, back and sacral pain. All imaging studies are unremarkable for fractures or internal bleeding. The discussion with patient regarding imaging and lab findings. We'll send home with muscle relaxer, pain medication. Patient was understanding and agreeable with plan. Patient stable for discharge with outpatient follow-up with PCP. Discussed findings and plan with patient and family, who acknowledge understanding and agreement. Dragon Disclaimer Dragon Disclaimer This electronic medical record was generated, in whole or in part, using a voice recognition dictation system. Departure Departure Impression: Primary Impression: Fall Additional Impressions: Head contusion Sprain of shoulder, right Back pain Hematoma Disposition: HOME, SELF-CARE Condition: STABLE Referrals: KARY RANDALL MD (PCP) Patient Instructions: Back Pain, Adult, Kumd-[id number], Fall Prevention and Home Safety, Bhyb-[id number], Head Injury, Adult, [id number], Hematoma, Jfep-jp-[id number], Muscle Strain, [id number]-lv-Mmnl Scripts Orphenadrine Citrate (ORPHENADRINE CITRATE) 100 Mg Tablet.er 100 MG PO BID PRN for MUSCLE PAIN, #14 TAB Prov: SUSAN ALLISON DO 12/16/19 Hydrocodone/Apap 5-325 (NORCO 5-325 TABLET) 1 Each Tablet 0.5-1 TAB PO PRN Q6HRS PRN for PAIN, #10 TAB 0 Refills Prov: SUSAN ALLISON DO 12/16/19 Problem Qualifiers Primary Impression: Fall Encounter type: initial encounter Qualified Codes: W19.XXXA - Unspecified fall, initial encounter Additional Impressions: Head contusion Encounter type: initial encounter Contusion of head detail: scalp Qualified Codes: S00.03XA - Contusion of scalp, initial encounter Sprain of shoulder, right Encounter type: initial encounter Shoulder sprain type: unspecified sprain Qualified Codes: S43.401A - Unspecified sprain of right shoulder joint, initial encounter Back pain Back pain location: low back pain Chronicity: acute Back pain laterality: midline Sciatica presence: without sciatica Qualified Codes: M54.5 - Low back pain SUSAN ALLISON DO Dec 16, 2019 12:30
--- NOTE | 2019-12-16 12:36 | RAD ---
CT HEAD AND CERVICAL SPINE WO Date: 12/16/2019 11:38 AM Clinical Indication: Pain, fall Comparison: 05/02/2018. Technique: 5 mm axial tomographic images were obtained of the head without contrast. These were viewed on brain and bone windows. CT imaging of the cervical spine was performed without contrast. Coronal and sagittal reformatted images were performed. One or more of the following dose reduction techniques were utilized: Automated exposure control (AEC), Adjustment of mA and/or kV according to patient size, Use of iterative reconstruction technique such as ASiR, CT scan done according to ALARA and image gently/image wisely HEAD FINDINGS: The brain parenchyma is normal in attenuation. No intra- or extra-axial mass or fluid collection. No acute hemorrhage. The ventricles are normal in size, shape, and morphology. The soni-white matter junction is normal. The basilar cisterns are patent. The visualized paranasal sinuses are normal. The visualized portions of the orbits and globes are normal. The mastoid air cells are clear. No aggressive osseous lesion or fracture. CERVICAL SPINE FINDINGS: Straightening of the cervical lordosis. No acute fracture. No aggressive lytic or blastic osseous lesion. Mild to moderate multilevel degenerative disc height loss. Multilevel disc protrusions and marginal osteophytes results in multilevel spinal canal stenosis. Multilevel uncovertebral and facet arthrosis results in multilevel neural foraminal narrowing. The thyroid gland is normal. No cervical lymphadenopathy. The visualized aerodigestive tract is unremarkable. Centrilobular emphysema. IMPRESSION: 1. No acute intracranial process. 2. No acute osseous abnormality of the cervical spine. Electronically signed by: Jarrett Rowan MD (12/16/2019 12:33 PM) [id number]
--- NOTE | 2019-12-16 12:37 | RAD ---
Examination: LUMBAR SPINE 2-3V, PELVIS, SACRUM COCCYX 3V History: Pain, fall Comparison/Correlation: None Findings: Frontal view of the pelvis was obtained. Frontal and lateral views of the sacrum and coccyx were obtained. A total of 3 images of the lumbar spine were obtained. Osteopenia is noted. Myocardial clips are present. Alignment is unremarkable. Moderate L4-5 disc space narrowing is present. Mild L5-S1 disc space narrowing is present. No fracture or bone destruction. Calcification involvement of the abdominal aorta and iliac arteries noted. Calcific densities involving the right upper quadrant noted appear to represent vascular calcification. No displaced fracture or bony destructive findings. Hip joint spaces are symmetric. Sacroiliac joints are unremarkable. Impression: No acute process. Consider further imaging if occult process is a persistent concern. Electronically signed by: Bob Haile MD (12/16/2019 12:34 PM) [facility]
--- NOTE | 2019-12-16 12:37 | RAD ---
SHOULDER 2+V RIGHT History: Pain. Fall. Technique: 3 views right shoulder. Comparison: August 13, 2017 Findings: Normal alignment of the glenohumeral and acromioclavicular joints. No fracture. Impression: 1. No acute osseous abnormality. Electronically signed by: Ronn Nelson DO (12/16/2019 12:34 PM) [facility]
[2019-12-16] MEDS ORDERED: HYDR-3164 PO (13:14)
[2019-12-16] MEDS ORDERED: ORPH100T PO (13:14)
[2019-12-16] MEDS ORDERED: ONDANSETRON ODT 4 MG TAB.RAPDIS. PO ONE (13:30)
[2019-12-16] MEDS ORDERED: ALBUTEROL SULFATE 2.5 MG/3 ML NEBU. NEB ONE (14:15)
[2019-12-16 14:48] VITALS: BP 132/69
== END 2019-12-16 15:29 | disposition home or self-care (01) ==
LOC: ER 11:11
DX: S43.401A Unspecified sprain of right shoulder joint, initial encounter (principal); S00.03XA Contusion of scalp, initial encounter; S30.0XXA Contusion of lower back and pelvis, initial encounter; R42 Dizziness and giddiness; I11.0 Hypertensive heart disease with heart failure; I50.9 Heart failure, unspecified; E78.00 Pure hypercholesterolemia, unspecified; I25.2 Old myocardial infarction; J44.9 Chronic obstructive pulmonary disease, unspecified; F41.9 Anxiety disorder, unspecified; E11.40 Type 2 diabetes mellitus with diabetic neuropathy, unspecified; Z86.73 Personal history of transient ischemic attack (TIA), and cerebral infarction without residual deficits; Z95.5 Presence of coronary angioplasty implant and graft; Z98.1 Arthrodesis status; Z96.652 Presence of left artificial knee joint; Z88.1 Allergy status to other antibiotic agents; W07.XXXA Fall from chair, initial encounter; Y93.89 Activity, other specified; Y92.89 Other specified places as the place of occurrence of the external cause; Y99.8 Other external cause status
CPT/HCPCS: 70450; 72100; 72125; 72170; 72220; 73030; 94640; 96372; 99284; J2360; J7613; Q0162

== ENCOUNTER 2020-10-06 07:35 | Emergency (ER) | payer MEDICARE, MEDICAID ==
[~2020-10-06] VITALS: Ht 162.6 cm; Wt 76.8 kg
[~2020-10-06 07:35] MED LIST changes: +AMLO-186 PO; +AMLO-187 PO; -AMLO10TA8 PO; -AMLO5TAB10 PO; -ASPI-612 PO; +ASPI-886 PO; +LEVO-101 PO; -LEVO100T PO; +ORPH100T PO; -VALA500T PO; +VALA500T9 PO
[2020-10-06] MEDS ORDERED: MORPHINE SULFATE 4 MG/ML VIAL. IV ONE (07:45)
[2020-10-06] MEDS ORDERED: ONDANSETRON PF 4 MG/2 ML VIAL. IVP ONE (07:45)
--- NOTE | 2020-10-06 07:55 | PHYS DOC ---
Past Medical History Past Medical History: Anxiety, Bronchitis, CHF, COPD, Depression, Diabetes-Type II, High Cholesterol, Hypertension, Hyperthyroid, [place], TIA, Other Additional Past Medical Histor: EMPHYSEMA, BLE nueropathy Past Surgical History: Angioplasty, Other Additional Past Surgical Histo: left knee replacementx2, spinal fusion, CTR, Smoking Status: Former Smoker Alcohol Use: None Drug Use: None General Adult EDM: Chief Complaint: DIZZY/LIGHT HEADED HPI: HPI: Patient is a 65 year old female who had a dizzy spell this morning after getting out of bed fell backwards and hit her left ribs and flank on the side the bed. Patient arrives via EMS complaining of 10 out of 10 left sided rib pain. Pain is worse with deep breaths or movement and described as a stabbing type pain. Patient had some increase shortness of breath. Patient had a chronic cough due to COPD and is always short of breath. Review of Systems: Review of Systems: Constitutional: Denies fever or chills. [] Eyes: Denies change in visual acuity. [] HENT: Denies nasal congestion or sore throat. [] Respiratory: Complains of chronic cough and shortness of breath Cardiovascular: Denies chest pain but has lower extremity edema GI: Denies abdominal pain, nausea, vomiting, bloody stools or diarrhea. [] : Denies dysuria. [] Musculoskeletal: Denies back pain or joint pain. [] Integument: Denies rash. [] Neurologic: Denies headache, focal weakness or sensory changes. [] Endocrine: Denies polyuria or polydipsia. [] Lymphatic: Denies swollen glands. [] Psychiatric: Denies depression or anxiety. [] Heart Score: Risk Factors: Risk Factors: DM, Current or recent (<one month) smoker, HTN, HLP, family history of CAD, obesity. Risk Scores: Score 0 - 3: 2.5% MACE over next 6 weeks - Discharge Home Score 4 - 6: 20.3% MACE over next 6 weeks - Admit for Clinical Observation Score 7 - 10: 72.7% MACE over next 6 weeks - Early Invasive Strategies Current Medications: Current Medications Medications (Trade) Dose Ordered Sig/Juan Start Time Stop Time Status Last Admin Dose Admin Morphine Sulfate (Morphine Sulfate) 2 mg 1X ONCE 10/06/20 07:45 10/06/20 07:46 DC Ondansetron HCl (Zofran) 4 mg 1X ONCE 10/06/20 07:45 10/06/20 07:46 DC Allergies: Allergies: Allergies Coded Allergies Type Severity Reaction Last Updated Verified levofloxacin Allergy Intermediate Hives 03/05/17 Yes Physical Exam: PE: Constitutional: Well developed, well nourished, mild distress, non-toxic appearance. [] HENT: Normocephalic, atraumatic, bilateral external ears normal, no trismus nose normal. [] Eyes: PERRLA, EOMI, conjunctiva normal, no discharge. [] Neck: Normal range of motion, no tenderness, supple, no stridor. [] Cardiovascular:Heart rate regular rhythm, peripheral pulses intact cap refill is brisk Lungs & Thorax: Diminished breath sounds bilaterally with tenderness to palpate on the left posterior lateral ribs Abdomen: soft, no tenderness, no masses, no pulsatile masses. [] Skin: Warm, dry, no erythema, no rash. [] Back: Tenderness on the left posterior lateral ribs and on the lower to mid thoracic spine Extremities: No tenderness, mild bilateral lower extremities edema, skin tear to left elbow/proximal forearm area Neurologic: Alert and oriented X 3, normal motor function, normal sensory function, no focal deficits noted. [] Psychologic: Affect normal, judgement normal, mood normal. [] Current Patient Data: Vital Signs: Vital Signs Date Time Temp Pulse Resp B/P (MAP) Pulse Ox O2 Delivery O2 Flow Rate FiO2 10/06/20 07:42 97.8 70 40 175/101 (125) 100 Nasal Cannula 4.0 97.8 EKG: EKG: [] EKG interpreted by me normal sinus rhythm with a rate of 69 normal axis frequent PVCs, poor quality due to patient in pain and not able to sit still. Nonspecific ST changes Radiology/Procedures: Radiology/Procedures: [facility] [address] [place] [address] IMAGING REPORT Signed PATIENT: ESVIN SCHROEDER EACCOUNT: [id number] : 1955 LOCATION: ER AGE: 65 SEX: F EXAM STATUS: REG ER ORD. PHYSICIAN: LEW WOODSON MD REASON: PROCEDURE: CT THORACIC SPINE RECONSTRUCT EXAM: CT Chest without IV contrast INDICATION: Reason: / Spl. Instructions: / History: TECHNIQUE: Multi-detector row CT images were acquired from the thoracic inlet through the upper abdomen without the use of IV contrast. Sagittal and coronal images were acquired from the transaxial data. All CT scans performed at this facility utilize dose optimization techniques as appropriate to the exam, including the following: Automated exposure control and adjustment of the mA and/or KV according to patient size (this includes techniques or standardized protocols for targeted exams where dose is indication/reason for exam). COMPARISON: None FINDINGS: The some respiratory motion artifact that degrades detailed assessment especially of the sternum. The absence of IV contrast limits evaluation of soft tissue pathology. CARDIOVASCULAR: Trace pericardial effusion. Normal heart size. Normal caliber thoracic aorta with multivessel coronary calcifications. MEDIASTINUM & HENRI: No adenopathy or masses. LUNGS: Lungs show moderate emphysema, upper lobe predominant. No dominant masses or suspicious lung nodules identified. PLEURAL SPACE: No pleural effusions or pneumothorax. OSSEOUS & SOFT TISSUE: Vertebroplasty in compression fractures in the upper thoracic spine at T5 and T6 is present. No displaced rib fractures are identified. ABDOMEN: Occluded upper abdomen shows atrophic superior pole left kidney and postcholecystectomy surgical changes. IMPRESSION: Emphysema. No acute cardiopulmonary process otherwise shown. In particular, no displaced rib fractures, pleural effusion or pneumothorax is apparent. Study degraded by respiratory motion artifact. EXAM: CT Thoracic Spine without IV contrast INDICATION: Reason: / Spl. Instructions: / History: TECHNIQUE: Multi-detector row CT images were obtained through the thoracic spine without the use of IV contrast. Post-processing sagittal and coronal reconstructed images were obtained for interpretation. All CT scans performed at this facility utilize dose optimization techniques as appropriate to the exam, including the following: Automated exposure control and adjustment of the mA and/or KV according to patient size (this includes techniques or standardized protocols for targeted exams where dose is indication/reason for exam). COMPARISON: CT chest without IV contrast same day. FINDINGS: ALIGNMENT: Alignment is within normal limits. OSSEOUS: No acute fracture in the thoracic spine is apparent although compression deformities at T5 and T6 treated with vertebroplasty cement are noted. Bones are demineralized. DISC SPACES: Unremarkable. FACET JOINTS: Unremarkable. SPINAL CANAL: Unremarkable. NEUROFORAMINA: Unremarkable. SOFT TISSUES: Unremarkable. IMPRESSION: No acute traumatic findings in the thoracic spine with vertebroplasty cement at T5 and T6 noted. Electronically signed by: Messi Leos MD (10/06/2020 9:45 AM) [id number] DICTATED and SIGNED BY: MESSI LEOS MD DATE: 10/06/20 0945 Course & Med Decision Making: Course & Med Decision Making Pertinent Labs and Imaging studies reviewed. (See chart for details) [] 65-year-old female who arrives with left rib and back pain following a fall. Patient had a dizzy spell when standing up and that caused her fall. Patient underwent CT of the chest to rule out rib fractures as she could not tolerate x- rays. CT was negative for fractures or acute pulmonary pathology, patient also had a spinal CT which did not reveal any fractures. Patient was given pain meds and reassessed and was symptomatically improved. Patient was instructed on ISS machine and told to take deep breaths when she is awake. Patient was treated with pain medicine and given a prescription for this and follow-up. Sharee Disclaimer: Sharee Disclaimer: This electronic medical record was generated, in whole or in part, using a voice recognition dictation system. Departure Departure Impression: Primary Impression: Contusion of left chest wall Additional Impressions: Back contusion Dizziness Disposition: 01 DC HOME SELF CARE/HOMELESS Condition: STABLE Referrals: SHAYY ESPINAL DO (PCP) 2 to 3 days Patient Instructions: Back Injury Prevention, Blunt Chest Trauma, Urinary Tract Infection Additional Instructions: EMERGENCY DEPARTMENT GENERAL DISCHARGE INSTRUCTIONS THANK YOU for coming to [facility] Emergency Department (ED) today and trusting us with your care. We trust that you had a positive experience in our Emergency Department. If you wish to speak to the department Management you can contact the humanities department chair at . YOUR FOLLOW UP INSTRUCTIONS ARE FOLLOWS: Do you have a private doctor? If you do not have a private doctor, please ask for a resource list of physicians or clinics that may be able to assist you with follow up care. The Emergency Physician has interpreted your x-rays. The X-ray specialist will also review them. If there is a change in the findings you will be notified in 48 hours when at all possible. A lab test or lab culture may have been done, your results will be reviewed and you will be notified if you need a change in treatment. ADDITIONAL INSTRUCTIONS AND INFORMATION Your care today has been supervised by a physician who is specially trained in emergency care. Many problems require more than one evaluation for a complete diagnosis and treatment. We recommend that you schedule your follow up appointment as recommended to ensure complete treatment of your illness or injury. If you are unable to obtain follow up care and continue to have a problem, or if your condition worsens we recommend that you return to the ED. We are not able to safely determine your condition over the phone nor are we able to give sound medical advice over the phone. For these safety reasons, if you call for medical advice we will ask you to come to the ED for further evaluation If you have any questions regarding these discharge instructions please call the ED at . SAFETY INFORMATION In the interest of safety, wellness, and injury prevention; we encourage you to wear your seatbelt, if you smoke; quit smoking, and we encourage your family to use protective helmet for bicycling and other sporting events that present an increased risk for head injury. IF YOUR SYMPTOMS WORSEN OR NEW SYMPTOMS DEVELOP, OR YOU HAVE CONCERNS ABOUT YOUR CONDITION; OR IF YOUR CONDITION WORSENS WHILE YOU ARE WAITING FOR YOUR FOLLOW UP APPOINTMENT; EITHER CONTACT YOUR PRIMARY CARE DOCTOR, THE PHYSICIAN WHOSE NAME AND NUMBER YOU WERE GIVEN, OR RETURN TO THE ED IMMEDIATELY. Use ISS machine 10 times per hour while awake Scripts Ondansetron Hcl (ZOFRAN) 4 Mg Tablet 1 TAB PO Q6HRS for NAUSEA, #12 TAB Prov: LEW WOODSON MD 10/06/20 Nitrofurantoin Monohyd/M-Cryst (MACROBID 100 MG CAPSULE) 100 Mg Capsule 1 CAP PO BID for 7 Days, #14 CAP 0 Refills Prov: LEW WOODSON MD 10/06/20 Hydrocodone/Apap 5-325 (NORCO 5-325 TABLET) 1 Each Tablet 1 EACH PO PRN Q6HRS PRN for PAIN, #15 as needed for pain Prov: LEW WOODSON MD 10/06/20 LEW WOODSON MD Oct 06, 2020 07:55
[2020-10-06 08:08] LABS: BASO # 0.1 x10^3/uL (0.0-0.2); BASO % 1 % (0-3); EOS # 0.2 x10^3/uL (0.0-0.7); EOS % 2 % (0-3); HEMATOCRIT 34.8 % (36.0-47.0); HEMOGLOBIN 11.4 g/dL (12.0-15.5); LYMPH # 1.3 x10^3/uL (1.0-4.8); LYMPH % 12 % (24-48); MEAN CORPUSCULAR HEMOGLOBIN 29 pg (25-35); MEAN CORPUSCULAR HGB CONC 33 g/dL (31-37); MEAN CORPUSCULAR VOLUME 87 fL (79-100); MONO # 0.6 x10^3/uL (0.0-1.1); MONO % 6 % (0-9); NEUT # 8.6 x10^3/uL (1.8-7.7); NEUT % 80 % (31-73); PLATELET COUNT 213 x10^3/uL (140-400); RED CELL DISTRIBUTION WIDTH 13.5 % (11.5-14.5); WHITE BLOOD COUNT 10.7 x10^3/uL (4.0-11.0)
[2020-10-06 08:18] LABS: PROTHROMBIN TIME PATIENT 12.4 SEC (11.7-14.0)
[2020-10-06 08:24] LABS: CALCIUM 8.9 mg/dL (8.5-10.1); CREATININE 1.2 mg/dL (0.6-1.0); GFR 44.9; POTASSIUM 4.8 mmol/L (3.5-5.1)
[2020-10-06] MEDS ORDERED: MORPHINE SULFATE 2 MG/ML VIAL. IV ONE ×2 (08:30→09:30)
[2020-10-06] MEDS ORDERED: KETOROLAC 15 MG/ML VIAL. IVP ONE (08:30)
[2020-10-06 08:31] LABS: ALBUMIN/GLOBULIN RATIO 0.9 (1.0-1.7); TOTAL BILIRUBIN 0.2 mg/dL (0.2-1.0); TOTAL PROTEIN 6.4 g/dL (6.4-8.2)
--- NOTE | 2020-10-06 09:48 | RAD ---
EXAM: CT Chest without IV contrast INDICATION: Reason: / Spl. Instructions: / History: TECHNIQUE: Multi-detector row CT images were acquired from the thoracic inlet through the upper abdomen without the use of IV contrast. Sagittal and coronal images were acquired from the transaxial data. All CT scans performed at this facility utilize dose optimization techniques as appropriate to the exam, including the following: Automated exposure control and adjustment of the mA and/or KV according to patient size (this includes techniques or standardized protocols for targeted exams where dose is indication/reason for exam). COMPARISON: None FINDINGS: The some respiratory motion artifact that degrades detailed assessment especially of the sternum. The absence of IV contrast limits evaluation of soft tissue pathology. CARDIOVASCULAR: Trace pericardial effusion. Normal heart size. Normal caliber thoracic aorta with multivessel coronary calcifications. MEDIASTINUM & HENRI: No adenopathy or masses. LUNGS: Lungs show moderate emphysema, upper lobe predominant. No dominant masses or suspicious lung nodules identified. PLEURAL SPACE: No pleural effusions or pneumothorax. OSSEOUS & SOFT TISSUE: Vertebroplasty in compression fractures in the upper thoracic spine at T5 and T6 is present. No displaced rib fractures are identified. ABDOMEN: Occluded upper abdomen shows atrophic superior pole left kidney and postcholecystectomy surgical changes. IMPRESSION: Emphysema. No acute cardiopulmonary process otherwise shown. In particular, no displaced rib fractures, pleural effusion or pneumothorax is apparent. Study degraded by respiratory motion artifact. EXAM: CT Thoracic Spine without IV contrast INDICATION: Reason: / Spl. Instructions: / History: TECHNIQUE: Multi-detector row CT images were obtained through the thoracic spine without the use of IV contrast. Post-processing sagittal and coronal reconstructed images were obtained for interpretation. All CT scans performed at this facility utilize dose optimization techniques as appropriate to the exam, including the following: Automated exposure control and adjustment of the mA and/or KV according to patient size (this includes techniques or standardized protocols for targeted exams where dose is indication/reason for exam). COMPARISON: CT chest without IV contrast same day. FINDINGS: ALIGNMENT: Alignment is within normal limits. OSSEOUS: No acute fracture in the thoracic spine is apparent although compression deformities at T5 and T6 treated with vertebroplasty cement are noted. Bones are demineralized. DISC SPACES: Unremarkable. FACET JOINTS: Unremarkable. SPINAL CANAL: Unremarkable. NEUROFORAMINA: Unremarkable. SOFT TISSUES: Unremarkable. IMPRESSION: No acute traumatic findings in the thoracic spine with vertebroplasty cement at T5 and T6 noted. Electronically signed by: Monica Leos MD (10/06/2020 9:45 AM) [id number]
[2020-10-06 10:14] LABS: BILIRUBIN,URINE NEGATIVE (NEG); CLARITY,URINE CLEAR; COLOR,URINE YELLOW; NITRITE,URINE NEGATIVE (NEG); PH,URINE 5.5 (<5.0-8.0); PROTEIN,URINE >=300 mg/dL (NEG-TRACE); UROBILINOGEN,URINE 0.2 mg/dL (0.2 mg/dL)
[2020-10-06 10:31] LABS: AMORPHOUS SEDIMENT,UR PRESENT /HPF; BACTERIA,URINE FEW /HPF (0-FEW); HYALINE CASTS, URINE MODERATE /HPF
[2020-10-06] MEDS ORDERED: NITR100C62 PO (10:55)
[2020-10-06] MEDS ORDERED: HYDR-3164 PO (10:55)
[2020-10-06] MEDS ORDERED: ONDA4TAB7 PO (10:55)
[2020-10-06 11:34] VITALS: BP 111/79
== END 2020-10-06 11:55 | disposition home or self-care (01) ==
LOC: ER 07:35
DX: S20.212A Contusion of left front wall of thorax, initial encounter (principal); S30.0XXA Contusion of lower back and pelvis, initial encounter; S20.229A Contusion of unspecified back wall of thorax, initial encounter; R06.02 Shortness of breath; R42 Dizziness and giddiness; J44.9 Chronic obstructive pulmonary disease, unspecified; E78.00 Pure hypercholesterolemia, unspecified; I11.0 Hypertensive heart disease with heart failure; I50.9 Heart failure, unspecified; E11.9 Type 2 diabetes mellitus without complications; I25.2 Old myocardial infarction; F41.9 Anxiety disorder, unspecified; Z87.891 Personal history of nicotine dependence; Z95.5 Presence of coronary angioplasty implant and graft; W06.XXXA Fall from bed, initial encounter; Y93.89 Activity, other specified; Y92.89 Other specified places as the place of occurrence of the external cause; Y99.8 Other external cause status
CPT/HCPCS: 36415; 71250; 80053; 81001; 84484; 85025; 85610; 85730; 93005; 96374; 96375; 96376; 99285; G0238; J1885; J2270; J2405